=== PATIENT | female | born 1990 | race Caucasian/White ===

== ENCOUNTER 2023-06-24 19:28 | Outpatient (REF) | payer MEDICAID, SELFPAY ==
[2023-06-29 11:09] LABS: Age Gdln ACOG Testing Note (.); HPV Aptima Negative (Negative); IGP, Aptima HPV, rfx 16/18,45 Note (.)
== END 2023-06-24 19:29 | disposition home or self-care (01) ==
LOC: LAB 19:28
PROVIDERS: Visit Provider Obstetrics & Gynecology
DX: Z01.419 Encounter for gynecological examination (general) (routine) without abnormal findings (principal)
CPT/HCPCS: 87624; G0145

== ENCOUNTER 2023-06-25 13:18 | Emergency (ER) | payer MEDICAID, SELFPAY ==
[2023-06-25 13:22] VITALS: BP 128/87; PULSE 100; RESP 16; O2SAT 99; BMI 27.5
[2023-06-25 13:37] VITALS: TEMP 36.9
[2023-06-25 14:04] LABS: Bilirubin Urine NEGATIVE (NEGATIVE); Blood Urine NEGATIVE (NEGATIVE); Clarity Urine CLEAR (CLEAR); Color Urine LT. YELLOW (YELLOW); Glucose Urine UA NEGATIVE (NEGATIVE); Ketones Urine NEGATIVE (NEGATIVE); Leukocyte Esterase Urine NEGATIVE (NEGATIVE); Nitrite Urine NEGATIVE (NEGATIVE); Protein Urine NEGATIVE (NEG/TRACE); Specific Gravity Urine <=1.005 (1.005-1.025); Urobilinogen Urine 0.2 EU/dL (0.2-1.0); pH Urine 6.5 (5.0-9.0)
[2023-06-25 14:07] LABS: Urine Microscopic Indicated NO
[2023-06-25 14:22] LABS: HCG Qualitative Urine* NEGATIVE (NEGATIVE)
[2023-06-25] MEDS: PHENAZOPYRIDINE 100 MG TABLET PO (14:23)
--- NOTE | 2023-06-25 14:36 | ED.GENADUL1 ---
HPI - General Adult General Chief complaint: Abdominal Pain Stated complaint: RIGHT SIDED KIDNEY PAIN Time Seen by Provider: 06/25/23 13:25 Source: patient Mode of arrival: walk-in History of Present Illness HPI narrative: 32 year old female presents for right back pain. pt denies injury to back Patient recently completed Macrobid for a UTI. She states she continues to have symptoms of urinary frequency. pt denies fever, nausea, vomiting, or history of kidney stones. pt looks well. no flank pain on examination. Related Data Home Medications Medication Instructions Recorded Confirmed fluconazole 150 mg tablet 150 mg PO DAILY 06/25/23 06/25/23 methocarbamol 500 mg tablet 500 mg PO TID PRN muscle spasm 06/25/23 06/25/23 metronidazole 500 mg tablet 500 mg PO BID 06/25/23 06/25/23 phenazopyridine 200 mg tablet 200 mg PO TID 06/25/23 06/25/23 (Pyridium) Previous Rx's Medication Instructions Recorded ibuprofen 800 mg tablet 800 mg PO Q8H PRN pain #14 tabs 06/25/23 Allergies Allergy/AdvReac Type Severity Reaction Status Date / Time amoxicillin Allergy Severe Verified 06/25/23 13:29 azithromycin [From Zithromax] Allergy Severe Verified 06/25/23 13:29 cefaclor Allergy Severe Verified 06/25/23 13:29 clarithromycin [From Biaxin] Allergy Severe Verified 06/25/23 13:29 doxycycline Allergy Severe Verified 06/25/23 13:29 Sulfa (Sulfonamide Allergy Severe Verified 06/25/23 13:29 Antibiotics) sulfamethoxazole Allergy Severe Verified 06/25/23 13:29 [From Bactrim] trimethoprim [From Bactrim] Allergy Severe Verified 06/25/23 13:29 Review of Systems ROS Narrative All Systems are negative except as noted/marked.All systems reviewed and otherwise negative [facility] Medical History (Updated 06/25/23 @ 14:34 by Loraine Payne) Henoch-Schonlein purpura ?D69.0 - Allergic purpura (ICD-10) Exam Narrative Exam Narrative: Nurses note and vital signs reviewed and patient is not hypoxic. General: The patient appears well and in no apparent distress. Patient is resting comfortably on cart. Skin: Warm, dry, no pallor noted. There is no rash noted. Head: Normocephalic, atraumatic Eye: Normal conjunctiva, no drainage, EOMI. PERRL Ears, Nose, Mouth, and Throat: oral mucosa is moist. Nares patent. Mouth without vesicles. Ear canals patent. Tm's without Erythema Back: non-tender, no CVA tenderness bilaterally to percussion. GI: Normal bowel sounds, no tenderness to palpation, no masses appreciated. No rebound, guarding, or rigidity noted. Musculoskeletal: The patient has no evidence of calf tenderness, no pitting edema, symmetrical pulses noted bilaterally Neurological: A&O x4, normal speech Psychiatric: Cooperative Constitutional Vital Signs, click to edit/add: Last Vital Signs Temp 98.5 F 06/25/23 13:37 Pulse 100 H 06/25/23 13:22 Resp 16 06/25/23 13:22 BP 128/87 06/25/23 13:22 Pulse Ox 99 06/25/23 13:22 O2 Del Method Room Air 06/25/23 13:22 Course Vital Signs Vital signs: Vital Signs Pulse Rate 100 H 06/25/23 13:22 Respiratory Rate 16 06/25/23 13:22 Blood Pressure 128/87 06/25/23 13:22 Pulse Oximetry 99 06/25/23 13:22 Oxygen Delivery Method Room Air 06/25/23 13:22 Temperature 98.5 F 06/25/23 13:37 Pulse Rate 100 H 06/25/23 13:22 Respiratory Rate 16 06/25/23 13:22 Blood Pressure 128/87 06/25/23 13:22 Pulse Oximetry 99 06/25/23 13:22 Oxygen Delivery Method Room Air 06/25/23 13:22 Medical Decision Making [facility] Narrative Medical decision making narrative: Patient presented with chief complaint of urinary frequency and back pain. She is concerned of a worsening urinary tract infection despite taking Macrobid. Urinalysis obtained today and negative. No blood in her urine. She had no flank pain on examination. I do not believe her pain is due to nephrolithiasis. Patient did state she had increased urinary frequency medicated here with pyridium. She did request a prescription for Pyridium for home. Patient will follow-up with her primary care physician she will be treated for a back pain. Discharged home with Motrin and Robaxin. She verbalized understanding agrees with plan of care. Discharged home with education on back pain. Differential Diagnosis Differential Diagnosis: Back pain, UTI, kidney stone, Medical Records Medical records reviewed: Yes I reviewed the patient's medical records Lab Data Lab results reviewed: Yes I reviewed the patient's lab results Labs: Lab Results 06/25/23 06/25/23 Range/Units 13:32 14:00 Urine Color Lt. yellow (YELLOW) Urine Clarity Clear (CLEAR) Urine pH 6.5 (5.0-9.0) Ur Specific [place] <=1.005 A (1.005-1.025) Urine Protein Negative (NEG/TRACE) mg/dL Urine Glucose (UA) Negative (NEGATIVE) mg/dL Urine Ketones Negative (NEGATIVE) mg/dL Urine Occult Blood Negative (NEGATIVE) Urine Nitrite Negative (NEGATIVE) Urine Bilirubin Negative (NEGATIVE) Urine Urobilinogen 0.2 (0.2-1.0) EU/dL Ur Leukocyte Esterase Negative (NEGATIVE) Urine HCG, Qual Negative (NEGATIVE) Discharge Plan Discharge Chief Complaint: Abdominal Pain Clinical Impression: Back pain Patient Disposition: Home, Self-Care Time of Disposition Decision: 14:30 Condition: Good Mode of Transportation: Private Vehicle Prescriptions / Home Meds: New ibuprofen 800 mg tablet 800 mg PO Q8H PRN (Reason: pain) Qty: 14 0RF No Action fluconazole 150 mg tablet 150 mg PO DAILY Patient Comments: 3 days metronidazole 500 mg tablet 500 mg PO BID phenazopyridine [Pyridium] 200 mg tablet 200 mg PO TID methocarbamol 500 mg tablet 500 mg PO TID PRN (Reason: muscle spasm) Instructions: Back Pain (ED) Stand Alone Forms: Portal Instructions Referrals: Physician,Non-Staff, MD [Primary Care Provider] - 1 week Discharge Date/Time: 06/25/23 14:46
== END 2023-06-25 14:46 | disposition home or self-care (01) ==
PROVIDERS: Physician Assistant; Emergency Provider Emergency Medicine
DX: M54.9 Dorsalgia, unspecified (principal); Z87.440 Personal history of urinary (tract) infections; Z79.899 Other long term (current) drug therapy
CPT/HCPCS: 36415; 81003; 84703; 99283

== ENCOUNTER 2023-12-06 00:30 | Emergency (ER) | payer MEDICAID, SELFPAY ==
[2023-12-06 01:22] VITALS: BP 107/74; PULSE 103; TEMP 36.9; O2SAT 99; BMI 26.7
--- NOTE | 2023-12-06 01:46 | ED.GENADUL1 ---
HPI HPI - General Adult General Chief complaint: Urogenital-Female Stated complaint: uti headache Time Seen by Provider: 12/06/23 01:40 Source: patient Mode of arrival: walk-in Limitations: no limitations History of Present Illness HPI narrative: patient is poor historian. presents complaining of mouth pain and headache. Believes the mouth pain is causing the headache .Also complains of abdominal pain and believes she may have UTI. Then adds her back hurts also and she feels weak. no fever Related Data Home Medications ?Medication ?Instructions ?Recorded ?Confirmed fluconazole 150 mg tablet 150 mg PO DAILY 06/25/23 06/25/23 methocarbamol 500 mg tablet 500 mg PO TID PRN muscle spasm 06/25/23 06/25/23 metronidazole 500 mg tablet 500 mg PO BID 06/25/23 06/25/23 phenazopyridine 200 mg tablet 200 mg PO TID 06/25/23 06/25/23 (Pyridium) Previous Rx's ?Medication ?Instructions ?Recorded ibuprofen 800 mg tablet 800 mg PO Q8H PRN pain #14 tabs 06/25/23 Allergies Allergy/AdvReac Type Severity Reaction Status Date / Time amoxicillin Allergy Severe Verified 06/25/23 13:29 azithromycin [From Zithromax] Allergy Severe Verified 06/25/23 13:29 cefaclor Allergy Severe Verified 06/25/23 13:29 clarithromycin [From Biaxin] Allergy Severe Verified 06/25/23 13:29 doxycycline Allergy Severe Verified 06/25/23 13:29 Sulfa (Sulfonamide Allergy Severe Verified 06/25/23 13:29 Antibiotics) sulfamethoxazole Allergy Severe Verified 06/25/23 13:29 [From Bactrim] trimethoprim [From Bactrim] Allergy Severe Verified 06/25/23 13:29 Opioid HPI Opioid Management Most Recent Opioid Data: No Data to Display Review of Systems ROS Status of ROS 10 or more systems reviewed and unremarkable except as noted in history and below [facility] Medical History (Updated 12/06/23 @ 19:34 by [place] MD) Henoch-Schonlein purpura ?D69.0 - Allergic purpura (ICD-10) Exam Constitutional Vital Signs, click to edit/add: Last Vital Signs Temp 98.5 F 12/06/23 01:22 Pulse 103 H 05/13/24 01:22 Resp 20 12/06/23 01:22 BP 107/74 12/06/23 01:22 Pulse Ox 99 12/06/23 01:22 O2 Del Method Room Air 12/06/23 01:22 Common normals: average body habitus, oriented x3, healthy appearing, alert and well nourished [facility] Common normals: normocephalic and head/scalp atraumatic Other: resolving cold sores on her lips Eye Common normals: EOMs intact bilaterally and conjunctivae normal Respiratory Common normals: normal respiratory effort, no retractions and no use of accessory muscles Cardio Common normals: regular rate, regular rhythm, S1 normal heart sound and S2 normal heart sound GI Other: mild suprapubic tenderness. Left CVA tenderness Extremity Common normals: normal to inspection and full ROM Neuro Common normals: oriented x3, CN's II-XII intact bilaterally, moves all extremities and no focal motor deficits Psych Appearance: grossly normal Course Vital Signs Vital signs: Vital Signs Temperature 98.5 F 12/06/23 01:22 Pulse Rate 103 H 12/06/23 01:22 Respiratory Rate 20 12/06/23 01:22 Blood Pressure 107/74 12/06/23 01:22 Pulse Oximetry 99 12/06/23 01:22 Oxygen Delivery Method Room Air 12/06/23 01:22 Temperature 98.5 F 12/06/23 01:22 Pulse Rate 103 H 12/06/23 01:22 Respiratory Rate 20 12/06/23 01:22 Blood Pressure 107/74 12/06/23 01:22 Pulse Oximetry 99 12/06/23 01:22 Oxygen Delivery Method Room Air 12/06/23 01:22 Medical Decision Making [facility] Narrative Medical decision making narrative: patient is poor historian. presents complaining of mouth pain and abdominal pain. Exam unremarkable except for resolving cold sores on her lips. She also complained of headache. diagnostic studies and labs all unremarkable. [place] better after treatment of her headache. Discharged home in improved condition. No clear explanation of her symptoms. Diagnosed as possible viral syn. Lab Data Labs: Lab Results 12/06/23 12/06/23 Range/Units 02:09 02:56 WBC 16.3 H (4.0-11.0) 10^3/uL RBC 4.22 (4.20-5.40) 10^6/uL Hgb 13.0 (12.0-16.0) g/dL Hct 38.3 (36.0-48.0) % MCV 90.8 (81.0-99.0) fL MCH 30.8 (26.7-34.0) pg MCHC 33.9 (29.9-35.2) g/dL RDW 12.9 (11.0-15.0) % Plt Count 265 (150-450) 10^3/uL MPV 10.2 (9.5-13.5) fL Neut % (Auto) 83.3 H (43.0-75.0) % Lymph % (Auto) 6.4 L (20.5-60.0) % [place] % (Auto) 5.9 (1.7-12.0) % Eos % (Auto) 3.6 (0.9-7.0) % Baso % (Auto) 0.4 (0.2-2.0) % Neut # (Auto) 13.6 H (1.4-6.5) 10^3/uL Lymph # (Auto) 1.0 L (1.2-3.8) 10^3/uL [place] # (Auto) 1.0 H (0.3-0.8) 10^3/uL Eos # (Auto) 0.6 (0.0-0.7) 10^3/uL Baso # (Auto) 0.1 (0.0-0.1) 10^3/uL Abs Immat Gran (auto) 0.06 H (0.00-0.03) 10^3/uL Imm/Tot Granulo (auto) 0.4 (0.0-0.5) % Sodium 137 (136-145) mmol/L Potassium 3.6 (3.5-5.1) mmol/L Chloride 102 (98-107) mmol/L Carbon Dioxide 26.1 (21.0-32.0) mmol/L Anion Gap 12.5 BUN 18.0 (7.0-18.0) mg/dL Creatinine 1.17 H (0.55-1.02) mg/dL Est GFR ( Amer) >60 (>=60) Est GFR (Non-Af Amer) 54 L (>=60) BUN/Creatinine Ratio 15.4 Glucose 116 H (74-106) mg/dL Lactate 1.5 (0.4-2.0) mmol/L Calcium 9.1 (8.5-10.1) mg/dL Total Bilirubin 0.4 (0.2-1.0) mg/dL AST 16 (15-37) U/L ALT 30 (14-59) U/L Alkaline Phosphatase 60 (46-116) U/L Total Protein 6.9 (6.4-8.2) g/dL Albumin 3.3 L (3.4-5.0) g/dL Globulin 3.6 g/dL Albumin/Globulin Ratio 0.9 Urine Color Lt. yellow (YELLOW) Urine Clarity Clear (CLEAR) Urine pH 7.5 (5.0-9.0) Ur Specific [place] 1.010 (1.005-1.025) Urine Protein Negative (NEG/TRACE) mg/dL Urine Glucose (UA) Negative (NEGATIVE) mg/dL Urine Ketones Negative (NEGATIVE) mg/dL Urine Occult Blood Negative (NEGATIVE) Urine Nitrite Negative (NEGATIVE) Urine Bilirubin Negative (NEGATIVE) Urine Urobilinogen 1.0 (0.2-1.0) EU/dL Ur Leukocyte Esterase Negative (NEGATIVE) Urine HCG, Qual Negative (NEGATIVE) Discharge Plan Discharge Stand Alone Forms: Portal Instructions Chief Complaint: Urogenital-Female Clinical Impression: Viral syndrome, Headache Patient Disposition: Home, Self-Care Prescriptions / Home Meds: No Action fluconazole 150 mg tablet 150 mg PO DAILY Patient Comments: 3 days metronidazole 500 mg tablet 500 mg PO BID ibuprofen 800 mg tablet 800 mg PO Q8H PRN (Reason: pain) Qty: 14 0RF phenazopyridine [Pyridium] 200 mg tablet 200 mg PO TID methocarbamol 500 mg tablet 500 mg PO TID PRN (Reason: muscle spasm) Print Language: British Instructions: Viral Syndrome (ED) Referrals: Physician,Non-Staff, MD [Primary Care Provider] - 1 week Discharge Date/Time: 12/06/23 04:04
--- NOTE | 2023-12-06 01:54 | CT_ITS ---
The [address] [address] Patient Name: ABRAM NELSON MRN: [id number] date: 1990 Sex: F Assigned Patient Location: ER Current Patient Location: Accession/Order Number: [id number] Exam Date: 12/06/2023 02:19 Report Date: 12/06/2023 02:43 At the request of: TRACEY COLE Procedure: CT facial bones wo con EXAM: CT facial bones wo con HISTORY: facial pain and headache COMPARISON: CT head examination of the same date. TECHNIQUE: Noncontrast axial CT images through the facial bones were obtained with coronal and sagittal reformats. Dose reduction techniques were achieved by using automated exposure control and/or adjustment of mA and/or kV according to patient size and/or use of iterative reconstruction technique. FINDINGS: No acute fracture or dislocation of the facial bones is seen. The visualized paranasal sinuses and mastoid air cells are clear. The orbits and globes are unremarkable. No acute intracranial abnormality is seen in the imaged portions of the brain. CT/CT facial bones wo con IMPRESSION: 1. No acute or significant abnormality of the facial bones is seen. Electronically authenticated by: Loida JAMES Date: 12/06/2023 02:43
--- NOTE | 2023-12-06 01:54 | CT_ITS ---
The [address] [address] Patient Name: ABRAM NELSNO MRN: [id number] date: 1990 Sex: F Assigned Patient Location: ER Current Patient Location: Accession/Order Number: [id number] Exam Date: 12/06/2023 02:12 Report Date: 12/06/2023 02:32 At the request of: TRACEY COLE Procedure: CT head/brain wo con INDICATION: 32 years old; Female. Headache. TECHNIQUE: CT Head (ax/cor/sag reformats). Ionizing radiation dose reduced via iterative reconstruction/FBP blend and body size kV/mA adjustment. Comparison: None FINDINGS: POSTOPERATIVE CHANGES: None. BRAIN PARENCHYMA: No intraparenchymal or extra-axial hemorrhage. No mass effect. No midline shift or herniation. Normal mccain/white differentiation. VENTRICLES/EXTRA-AXIAL SPACES: Normal for patient's age. SINUSES/MASTOIDS: Sinuses are clear. Maxillary sinuses are not completely included. Reta bullosa on the left. Nasal septal deviation to the right. Mastoids and middle ears are clear. There is a degree of mastoid sclerosis on the right. MSK: No displaced or depressed calvarial fracture. OTHER: No hyperdense intraluminal thrombus. CT/CT head/brain wo con IMPRESSION: 1. No acute intracranial abnormality. No hemorrhage or mass effect. Electronically authenticated by: SHARI PATEL Date: 12/06/2023 02:32
--- NOTE | 2023-12-06 01:55 | CT_ITS ---
The [address] [address] Patient Name: ABRAM NELSON MRN: [id number] date: 1990 Sex: F Assigned Patient Location: ER Current Patient Location: Accession/Order Number: [id number] Exam Date: 12/06/2023 02:19 Report Date: 12/06/2023 02:43 At the request of: TRACEY COLE Procedure: CT abdomen pelvis wo con CT ABDOMEN PELVIS WITHOUT CONTRAST HISTORY: Pain with burning with urination. COMPARISON: None. TECHNIQUE: Thin section axial CT images were obtained from the lung bases to the pubis symphysis. This CT exam was performed using one or more of the following dose reduction techniques: Automated exposure control, adjustment of the mA and/or kV according to patient size, or use of iterative reconstruction technique. Thin section coronal and sagittal images were reconstructed from the axial data set. All images were reviewed and interpreted. CONTRAST: None. FINDINGS: Assessment of solid organs is limited without the benefit of IV contrast. LUNG BASES: The lung bases are clear. GE JUNCTION AND STOMACH: Negative. No hiatal hernia. LIVER: Negative. GALLBLADDER AND BILIARY TREE: Normal gallbladder. SPLEEN: Negative. PANCREAS: Negative. ADRENALS: Negative. KIDNEYS AND URETERS: Negative. No urinary tract calculi or hydronephrosis. No renal masses or cysts are evident. SMALL BOWEL: Negative. LARGE BOWEL: Negative. APPENDIX: Negative. PELVIC STRUCTURES: Reproductive organs are normal for age. No pelvic mass or fluid collection. AORTA: The abdominal aorta is normal size. IVC: Negative. LYMPH NODES: There is no lymphadenopathy. BLADDER: Normal bladder. BONES: Unremarkable. COMMENTS: No ascites or free air. CT/CT abdomen pelvis wo con IMPRESSION: No acute or concerning abnormality identified. Negative CT of the abdomen and pelvis without contrast. These imaging findings do not exclude additional clinically significant abnormalities. This report should be interpreted in the context of clinical information including patient symptoms and available laboratory findings. Follow-up imaging or other interventions may be appropriate, if indicated by your clinical impression. Electronically authenticated by: CRISTINA OHARA Date: 12/06/2023 02:43
[2023-12-06 02:16] LABS: Basophils Absolute Auto 0.1 10^3/uL (0.0-0.1); Basophils Percent Auto 0.4 % (0.2-2.0); Eosinophils Absolute Auto 0.6 10^3/uL (0.0-0.7); Eosinophils Percent Auto 3.6 % (0.9-7.0); Hematocrit 38.3 % (36.0-48.0); Immature Granulocytes Abs Auto 0.06 10^3/uL (0.00-0.03); Immature Granulocytes Pct Auto 0.4 % (0.0-0.5); Lymphocytes Percent Auto 6.4 % (20.5-60.0); Mean Corpuscular HGB Conc 33.9 g/dL (29.9-35.2); Mean Corpuscular Hemoglobin 30.8 pg (26.7-34.0); Mean Corpuscular Volume 90.8 fL (81.0-99.0); Mean Platelet Volume 10.2 fL (9.5-13.5); Monocytes Percent Auto 5.9 % (1.7-12.0); Neutrophils Absolute Auto 13.6 10^3/uL (1.4-6.5); Neutrophils Percent Auto 83.3 % (43.0-75.0); Platelet Count 265 10^3/uL (150-450); Red Blood Count 4.22 10^6/uL (4.20-5.40); Red Cell Distribution Width 12.9 % (11.0-15.0); White Blood Count 16.3 10^3/uL (4.0-11.0)
[2023-12-06 02:30] LABS: Alanine Aminotransferase 30 U/L (14-59); Albumin Globulin Ratio 0.9; Albumin Level 3.3 g/dL (3.4-5.0); Alkaline Phosphatase 60 U/L (46-116); Anion Gap 12.5; Aspartate Amino Transferase 16 U/L (15-37); BUN Creatinine Ratio 15.4; Bilirubin Total 0.4 mg/dL (0.2-1.0); Calcium 9.1 mg/dL (8.5-10.1); Carbon Dioxide 26.1 mmol/L (21.0-32.0); Chloride 102 mmol/L (98-107); Estimated GFR (African America >60 (>=60); Estimated GFR (Non-African Ame 54 (>=60); Globulin 3.6 g/dL; Glucose 116 mg/dL (74-106); Potassium 3.6 mmol/L (3.5-5.1); Sodium 137 mmol/L (136-145); Total Protein 6.9 g/dL (6.4-8.2)
[2023-12-06 02:33] LABS: Lactate/Lactic Acid 1.5 mmol/L (0.4-2.0)
[2023-12-06] MEDS: 0.9 % SODIUM CHLORIDE 1,000 ML 999 ML IV (02:43)
[2023-12-06] MEDS: DIPHENHYDRAMINE HCL 50 MG/ML (1ML) VIAL IV (02:44)
[2023-12-06] MEDS: METOCLOPRAMIDE HCL 10 MG/2 ML VIAL IVP (02:44)
[2023-12-06] MEDS: METHYLPREDNISOLONE SOD SUCC PF 125 MG/2 ML VIAL IVP (02:44)
[2023-12-06 03:33] LABS: Bilirubin Urine NEGATIVE (NEGATIVE); Blood Urine NEGATIVE (NEGATIVE); Clarity Urine CLEAR (CLEAR); Color Urine LT. YELLOW (YELLOW); Glucose Urine UA NEGATIVE (NEGATIVE); Ketones Urine NEGATIVE (NEGATIVE); Leukocyte Esterase Urine NEGATIVE (NEGATIVE); Nitrite Urine NEGATIVE (NEGATIVE); Protein Urine NEGATIVE (NEG/TRACE); Urine Microscopic Indicated NO; pH Urine 7.5 (5.0-9.0)
[2023-12-06 03:35] LABS: HCG Qualitative Urine* NEGATIVE (NEGATIVE)
--- OUTSIDE RECORDS SUMMARY | 2023-12-06 03:55 | XMS_ITS | CCD ---
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 DATE CREATED AUTHOR 01/19/2018 [facility] DATE CREATED AUTHOR AUTHOR'S ORGANIZ ATION 01/19/2018 [facility] DATE CREATED AUTHOR AUTHOR'S ORGANIZ ATION 08/26/2022 [facility] DATE CREATED AUTHOR AUTHOR'S ORGANIZ ATION 12/02/2022 [facility] DATE CREATED AUTHOR AUTHOR'S ORGANIZ ATION 06/26/2023 [facility] FOR RECORDS PERTAINING TO PATIENTS WHO ARE OR HAVE BEEN ENROLLED IN A CHEMICAL DEPENDENCY/SUBSTANCEABUSE PROGRAM, SOME INFORMATION MAY BE OMITTED. This clinical summary was aggregated from multiple sources. Caution should be exercised in using it in the provision of clinical care. This summary normalizes information from multiple sources, and as a consequence, information in this document may materially change the coding, format and clinical context of patient data. In addition, data may be omitted in some cases. CLINICAL DECISIONS SHOULD BE BASED ON THE PRIMARY CLINICAL RECORDS. [employer] provides no warranty or guarantee of the accuracy or completeness of information in this document.
== END 2023-12-06 04:04 | disposition home or self-care (01) ==
PROVIDERS: Emergency Provider Internal Medicine
DX: R51.9 Headache, unspecified (principal); B34.9 Viral infection, unspecified; R10.9 Unspecified abdominal pain
CPT/HCPCS: 36415; 70450; 70486; 74176; 80053; 81003; 83605; 84703; 85025; 96374; 96375; 99285; J2919

== ENCOUNTER 2024-07-21 10:12 | Outpatient (OUT) | payer MEDICAID, SELFPAY ==
--- NOTE | 2024-07-21 10:14 | US_ITS ---
[address] [address] Patient Name: ABRAM NELSON MRN: [id number] date: 1990 Sex: F Assigned Patient Location: [facility] Current Patient Location: [facility] Accession/Order Number: [id number] Exam Date: 07/21/2024 10:15 Report Date: 07/21/2024 16:17 At the request of: KERMIT MG Procedure: US OB transvaginal EXAMINATION: US OB transvaginal HISTORY: MISSED MENSES COMPARISON: No relevant comparison available. FINDINGS: GESTATIONAL SAC: Present and normal appearing. YOLK SAC: Present and normal appearing. POLE: Present and normal appearing. CARDIAC: Present. UTERUS: Normal size and appearance. OVARIES: Right: Normal. Left: Normal. CERVIX: 4.2 cm in length and closed. CUL-DE-SAC: Normal. OTHER: None. AGE BY LMP: 9 weeks 5 days INGRIS BY LMP: 02/18/2025 AGE BY US CRL: 10 weeks 0 days INGRIS BY US CRL: 02/16/2025 US/US OB transvaginal IMPRESSION: 1. Single live intrauterine . Electronically authenticated by: REMA OLIVAS Date: 07/21/2024 16:17
--- OUTSIDE RECORDS SUMMARY | 2024-07-21 10:24 | XMS_ITS | CCD ---
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 ####[address] [place] [address] Urine, bacteria in sediment Negative Normal [facility] Comment on above: Performed By: #### P T/INR, PTT ####[address] [place] [address] Urine, mucus presence in sediment Negative Normal NEGATIVE [facility] Comment on above: Performed By: #### P T/INR, PTT ####[address] [place] [address] Urine, casts in sediment NONE SEEN Normal NONE SEEN [facility] Comment on above: Performed By: #### P T/INR, PTT ####[address] [place] [address] Urine, epithelial cells in sediment Negative Normal NEGATIVE [facility] Comment on above: Performed By: #### P T/INR, PTT ####[address] [place] [address] Erythrocytes (RBC) 0-4/HPF Normal NONE SEEN [facility] Comment on above: Performed By: #### P T/INR, PTT ####[address] [place] [address] WBC (Leukocytes) NONE SEEN Normal NONE SEEN [facility] Comment on above: Performed By: #### P T/INR, PTT ####[address] [place] [address] Urine, leukocyte esterase presence Negative Normal NEGATIVE [facility] Comment on above: Performed By: #### P T/INR, PTT ####[address] [place] [address] Urine, nitrite presence Negative Normal NEGATIVE [facility] Comment on above: Performed By: #### P T/INR, PTT ####[address] [place] [address] Urobilinogen, Dipstick 0.2 Normal 0.2 - 1.0 [facility] Comment on above: Performed By: #### P T/INR, PTT ####[address] [place] [address] Protein, Qual Negative Normal NEGATIVE [facility] Comment on above: Performed By: #### P T/INR, PTT ####[address] [place] [address] Urine, pH 7.0 [pH] Normal 5.0 - 9.0 [facility] Comment on above: Performed By: #### P T/INR, PTT ####[address] [place] [address] Blood, Dipstick TRACE Abnormal NEGATIVE [facility] Comment on above: Performed By: #### P T/INR, PTT ####[address] [place] [address] Urine, specific gravity 1.015 Normal 1.005 - 1.030 [facility] Comment on above: Performed By: #### P T/INR, PTT ####[address] [place] [address] Ketone, Dipstick Negative Normal NEGATIVE [facility] Comment on above: Performed By: #### P T/INR, PTT ####[address] [place] [address] Bilirubin (direct) Negative Normal NEGATIVE [facility] Comment on above: Performed By: #### P T/INR, PTT ####[address] [place] [address] Glucose mass conc Negative Normal NEGATIVE [facility] Comment on above: Performed By: #### P T/INR, PTT ####[address] [place] [address] Urine, character CLEAR Normal CLEAR [facility] Comment on above: Performed By: #### P T/INR, PTT ####[facility] [place] [address] Urine, color YELLOW Normal [facility] Comment on above: Performed By: #### P T/INR, PTT ####[address] [place] [address] Urinalysis w/ Microon 2016 ----- Normal [facility] Comment on above: Performed By: #### U AMIC, MARLEEN ####[address] [address] Acetaminophen mass conc Negative Normal NEG [facility] Comment on above: Performed By: #### U AMIC, MARLEEN ####[address] [address] Bilirubin (direct) Negative Normal NEG [facility] Comment on above: Performed By: #### U AMIC, MARLEEN ####[address] [address] Hemoglobin mass conc (Bld) LARGE Abnormal NEG [facility] Comment on above: Performed By: #### U AMIC, MARLEEN ####[address] [address] Nitrite,Ur Negative Normal NEG [facility] Comment on above: Performed By: #### U AMIC, MARLEEN ####[address] [address] Turbidity CLEAR Normal CLEAR [facility] Comment on above: Performed By: #### U AMIC, MARLEEN ####[address] [address] Urine WBC's 0 TO 2 Normal 0-5 [facility] Comment on above: Performed By: #### U AMIC, MARLEEN ####[facility] [address] [place] [address] Urine, casts in sediment 0 TO 2 HYALINE Normal 0-8 [facility] Comment on above: Result Comment: Refe rence range defined for non-centrifuged specimen. Performed By: #### U AMIC, MARLEEN ####[address] [address] Urine, color YELLOW Normal YEL [facility] Comment on above: Performed By: #### U AMIC, MARLEEN ####[address] [address] Urine, epithelial cells in sediment 0 TO 2 Normal 0-5 [facility] Comment on above: Result Comment: [address] [address] Performed By: #### U AMIC, MARLEEN ####[address] [address] Urine, erythrocytes 2 TO 5 Normal 0-4 [facility] Comment on above: Result Comment: Refe rence range defined for non-centrifuged specimen. Performed By: #### U AMIC, MARLEEN ####[address] [address] Urine, glucose presence Negative Normal NEG [facility] Comment on above: Performed By: #### U AMIC, MARLEEN ####[facility] [id number] [place] [address] Urine, leukocyte esterase presence Negative Normal NEG [facility] Comment on above: Performed By: #### U AMIC, MARLEEN ####[facility] [id number] [place] [address] Urine, pH 6.0 [pH] Normal 5.0-8.0 [facility] Comment on above: Performed By: #### U AMIC, MARLEEN ####[address] [address] Urine, protein presence Negative Normal NEG [facility] Comment on above: Performed By: #### U AMIC, MARLEEN ####[address] [place] [address] Urine, specific gravity 1.013 Normal 1.005-1.030 [facility] Comment on above: Performed By: #### U AMIC, MARLEEN ####[address] [address] Urobilinogen,Ur Normal Normal NORM [facility] Comment on above: Performed By: #### U AMIC, MARLEEN ####[address] [address] Epithelial, Renal NOT REPORTED Normal 0 [facility] Comment on above: Performed By: #### U AMIC, MARLEEN ####[address] [address] Mucus Strands NOT REPORTED Normal NONE [facility] Comment on above: Performed By: #### U AMIC, MARLEEN ####[address] [address] Other Observations NOT REPORTED Normal NREQ [facility] Comment on above: Performed By: #### U AMIC, MARLEEN ####[address] [place] [address] Trichomonas NOT REPORTED Normal NONE [facility] Comment on above: Performed By: #### U AMIC, MARLEEN ####[facility] [address] [place] [address] Urine, amorphous sediment presence in sediment NOT REPORTED Normal NONE [facility] Comment on above: Performed By: #### U AMIC, MARLEEN ####[facility] [address] [place] [address] Urine, bacteria in sediment NOT REPORTED Normal NONE [facility] Comment on above: Performed By: #### U AMIC, MARLEEN ####[facility] [address] [place] [address] Urine, crystals in sediment NOT REPORTED Normal NONE [facility] Comment on above: Performed By: #### U AMIC, MARLEEN ####[facility] [address] [place] [address] Urine, yeast presence in sediment NOT REPORTED Normal NONE [facility] Comment on above: Performed By: #### U AMIC, MARLEEN ####[address] [place] [address] XR CHEST PA OR AP (1 VIEW)on [...] injury.Report electronically signed by: Dr. Chilo Fernandez [facility] XR SHOULDER RTon 02-07-2017 XR SHOULDER [...] injury.Report electronically signed by: Dr. Chilo Fernandez [facility] APTTon 02-06-2017 aPTT 29.1 s Normal 23.0 - 37.0 [facility] Comment on above: Performed By: #### P T/INR, PTT ####[address] [place], [place] [address] Basic Metabolic Panelon 01-23 eGFR (non-black) 108.65 Normal [facility] Comment on above: Result Comment: eGFR Interpretation:Normal: Equal to or greater than 60 mL/min/1.73 meters squaredChronic Kidney Disease: Less than 60 mL/min/1.73 meters squaredKidney Failure: Less than 15 mL/min/1.73 meters squared Performed By: #### B MP, LIVER PROFILE ####[address] [place] [address] eGFR (non-black) 114.39 Normal [facility] Comment on above: Result Comment: eGFR Interpretation:Normal: Equal to or greater than 60 mL/min/1.73 meters squaredChronic Kidney Disease: Less than 60 mL/min/1.73 meters squaredKidney Failure: Less than 15 mL/min/1.73 meters squared Performed By: #### B MP, LIVER PROFILE ####[address] [place] [address] eGFR (non-black) 108.1 Normal [facility] Comment on above: Result Comment: eGFR Interpretation:Normal: Equal to or greater than 60 mL/min/1.73 meters squaredChronic Kidney Disease: Less than 60 mL/min/1.73 meters squaredKidney Failure: Less than 15 mL/min/1.73 meters squared Performed By: #### B MP, LIVER PROFILE ####[address] [place] [address] eGFR (non-black) 81.88 Normal [facility] Comment on above: Result Comment: eGFR Interpretation:Normal: Equal to or greater than 60 mL/min/1.73 meters squaredChronic Kidney Disease: Less than 60 mL/min/1.73 meters squaredKidney Failure: Less than 15 mL/min/1.73 meters squared Performed By: #### B MP, LIVER PROFILE ####[address] [place] [address] eGFR (non-black) 125.60 Normal [facility] Comment on above: Performed By: #### B MP, LIVER PROFILE ####[address] [place] [address] eGFR (non-black) 132.24 Normal [facility] Comment on above: Performed By: #### B MP, LIVER PROFILE ####[address] [place] [address] eGFR (non-black) 124.64 Normal [facility] Comment on above: Performed By: #### B MP, LIVER PROFILE ####[address] [place] [address] eGFR (non-black) 94.39 Normal [facility] Comment on above: Performed By: #### B MP, LIVER PROFILE ####[address] [place] [address] Age 26 year(s) Normal [facility] Comment on above: Performed By: #### B MP, LIVER PROFILE ####[address] [place] [address] Calcium 10.1 mg/dL Normal 8.4 - 10.2 [facility] Comment on above: Performed By: #### B MP, LIVER PROFILE ####[address] [place] [address] Chloride 103 mmol/L Normal 98 - 107 [facility] Comment on above: Performed By: #### B MP, LIVER PROFILE ####[address] [place] [address] CO2 25 mmol/L Normal 22 - 32 [facility] Comment on above: Performed By: #### B MP, LIVER PROFILE ####[address] [place] [address] Creatinine 0.96 mg/dL Normal 0.52 - 1.04 [facility] Comment on above: Performed By: #### B MP, LIVER PROFILE ####[address] [place] [address] Glucose mass conc 126 mg/dL High 65 - 100 [facility] Comment on above: Performed By: #### B MP, LIVER PROFILE ####[address] [place] [address] Potassium molar conc 3.9 mmol/L Normal 3.6 - 5.0 [facility] Comment on above: Performed By: #### B MP, LIVER PROFILE ####[address] [place] [address] Sodium 139 mmol/L Normal 135 - 145 [facility] Comment on above: Performed By: #### B MP, LIVER PROFILE ####[address] [place] [address] Urea nitrogen 20 mg/dL High 7 - 17 [facility] Comment on above: Performed By: #### B MP, LIVER PROFILE ####[address] [place] [address] CBC W Auto Differentialon Abs Neut # 9.0 10 X 3/mm High 1.8 - 7.7 [facility] Comment on above: Performed By: #### C BC Auto Diff ####[address] [place] [address] Basophils/100 WBC Auto (Bld) 1 % High 0 - 1 [facility] Comment on above: Performed By: #### C BC Auto Diff ####[address] [place] [address] Eosinophils 0.1 10 X 3/mm Normal 0.0 - 0.5 [facility] Comment on above: Performed By: #### C BC Auto Diff ####[address] [place] [address] Eosinophils/100 leukocytes 1 % Normal 0 - 5 [facility] Comment on above: Performed By: #### C BC Auto Diff ####[address] [place] [address] Erythrocyte distribution width Auto Ratio (RBC) 15.1 % High 11.5 - 14.5 [facility] Comment on above: Performed By: #### C BC Auto Diff ####[address] [place] [address] Erythrocytes (RBC) 4.28 10 X 6/mm Normal 4.20 - 5.40 [facility] Comment on above: Performed By: #### C BC Auto Diff ####[address] [place] [address] Hematocrit (HCT) 36.3 % Normal 36.0 - 47.0 [facility] Comment on above: Performed By: #### C BC Auto Diff ####[address] [place] [address] Hemoglobin mass conc (Bld) 12.4 g/dL Normal 12.0 - 16.0 [facility] Comment on above: Performed By: #### C BC Auto Diff ####[address] [place] [address] Lymphocytes 2.3 10 X 3/mm Normal 1.0 - 4.0 [facility] Comment on above: Performed By: #### C BC Auto Diff ####[address] [place] [address] Lymphocytes/100 leukocytes 19 % Low 20 - 40 [facility] Comment on above: Performed By: #### C BC Auto Diff ####[address] [place] [address] MCH 29.0 pg Normal 27.0 - 35.0 [facility] Comment on above: Performed By: #### C BC Auto Diff ####[address] [place] [address] MCHC mass conc (RBC) 34.2 g/dL Normal 32.0 - 36.0 [facility] Comment on above: Performed By: #### C BC Auto Diff ####[address] [place] [address] MCV 84.9 fL Normal 80.0 - 100.0 [facility] Comment on above: Performed By: #### C BC Auto Diff ####[address] [place] [address] Monocytes/100 leukocytes 6 % Normal 1 - 15 [facility] Comment on above: Performed By: #### C BC Auto Diff ####[address] [place] [address] Neutrophils/100 WBC Auto (Bld) 74 % High 50 - 70 [facility] Comment on above: Performed By: #### C BC Auto Diff ####[address] [place] [address] Platelet mean volume (PMV) 8.0 fL Normal 7.5 - 11.5 [facility] Comment on above: Performed By: #### C BC Auto Diff ####[address] [place] [address] Platelets 454 uLx10 High 150 - 450 [facility] Comment on above: Performed By: #### C BC Auto Diff ####[address] [place] [address] WBC (Leukocytes) 12.2 10 X 3/mm High 3.7 - 11.0 [facility] Comment on above: Performed By: #### C BC Auto Diff ####[address] [place] [address] CT BRAIN WOon 02-06-2017 Thyroid stimulating hormone [...] effectReport electronically signed by: Dr. Zaire Babcock [facility] CT CERVICAL SPINE WOon 02-06 CT CERVICAL SPINE WO CT CERVICAL SPINE W ITHOUT CONTRASTCLINICAL HISTORY: TraumaCOMPARISON: No relevant prior study available at time of interpretation..TECHNIQUE : Unenhanced axial CT images of the cervical [...] clinically indicated.Report electronically signed by: Dr. Mahamed King [facility] CT SINUS/FACIAL WOon 017 CT SINUS/FACIAL [...] foreign body.Report electronically signed by: Dr. Hal Ayoub Normal [facility] Hepatic Function Panelon Alanine aminotransferase (ALT) 30 U/L Normal 7 - 52 [facility] Comment on above: Performed By: #### B MP, LIVER PROFILE ####[address] [place] [address] Albumin 3.8 g/dL Normal 3.5 - 5.0 [facility] Comment on above: Performed By: #### B MP, LIVER PROFILE ####[address] [place] [address] Alkaline phosphatase (ALP) 63 U/L Normal 38 - 126 [facility] Comment on above: Performed By: #### B MP, LIVER PROFILE ####[address] [place] [address] Aspartate aminotransferase (AST) 22 U/L Normal 14 - 36 [facility] Comment on above: Performed By: #### B MP, LIVER PROFILE ####[address] [place] [address] Bilirubin (direct) 0.0 mg/dL Normal 0.0 - 0.2 [facility] Comment on above: Performed By: #### B MP, LIVER PROFILE ####[address] [place] [address] Bilirubin (total) 0.8 mg/dL Normal 0.2 - 1.3 [facility] Comment on above: Performed By: #### B MP, LIVER PROFILE ####[address] [place] [address] Protein 6.9 g/dL Normal 6.3 - 8.2 [facility] Comment on above: Performed By: #### B MP, LIVER PROFILE ####[address] [place] [address] PT/INRon 02-06-2017 INR Coag RelTime (Bld) See Comments Normal [facility] Comment on above: Result Comment: [place] mmended [...] 2.5-3.5 Performed By: #### P T/INR, PTT ####[address] [place] [address] INR Coag RelTime (PPP) 0.94 Normal 0.90 - 1.10 [facility] Comment on above: Performed By: #### P T/INR, PTT ####[address] [place] [address] Prothrombin time (PT) Coag time (PPP) 12.6 s Normal [facility] Comment on above: Performed By: #### P T/INR, PTT ####[address] [place] [address] Troponin I, Extra Sensitiveo n 02-06-2017 Troponin I.cardiac mass conc ng/mL Normal 0.000 - 0.034 [facility] Comment on above: Result Comment: Limi t of Detection: <0.012 ng/mLAt Risk of Myocardial Damage: 0.012-0.034 ng/mLProbable Myocardial Damage: >0.034 ng/mL Performed By: #### T ROPONIN I ####[place] [id number] [place], [place] [id number] hCG, Qualitative-Serumon Internal Control ACCEPTABLE Normal [facility] Comment on above: Performed By: #### H CG,QUAL SERUM ####[place] [id number] [place] [address] hCG, Qualitative-Serum Negative Normal NEGATIVE [facility] Comment on above: Performed By: #### H CG,QUAL SERUM ####[place] [id number] [place], [place] [id number] Vital Signs Date Time Vital Sign Value Performing Clinician Faci lity 06-08-2024 10:32-0500 Body height 165.1 cm [facility] 06-08-2024 10:32-0500 Body mass index (BMI) [Ratio] 29.1 kg/m2 [facility] 06-08-2024 10:32-0500 Body temperature 97.5 [degF] [facility] 06-08-2024 10:32-0500 Body weight 79.37 kg [facility] 06-08-2024 10:32-0500 Diastolic blood pressure 89 mm[Hg] [facility] 06-08-2024 10:32-0500 Heart rate 93 /min [facility] 06-08-2024 10:32-0500 Respiratory rate 18 /min [facility] 06-08-2024 10:32-0500 SaO2% (BldA) [Mass fraction] 98 % [facility] 06-08-2024 10:32-0500 Systolic blood pressure 130 mm[Hg] [facility] 04-21-2024 13:40-0400 Body height 165.1 cm [facility] 04-21-2024 13:40-0400 Body mass index (BMI) [Ratio] 28.1 kg/m2 [facility] 04-21-2024 13:40-0400 Body temperature 99.4 [degF] [facility] 04-21-2024 13:40-0400 Body weight 76.82 kg [facility] 04-21-2024 13:40-0400 Diastolic blood pressure 84 mm[Hg] [facility] 04-21-2024 13:40-0400 Heart rate 85 /min [facility] 04-21-2024 13:40-0400 Respiratory rate 18 /min [facility] 04-21-2024 13:40-0400 SaO2% (BldA) [Mass fraction] 99 % [facility] 04-21-2024 13:40-0400 Systolic blood pressure 126 mm[Hg] [facility] 12-22-2023 18:07-0400 Body height 165.1 cm [facility] 12-22-2023 18:07-0400 Body mass index (BMI) [Ratio] 27.8 kg/m2 [facility] 12-22-2023 18:07-0400 Body temperature 98.7 [degF] [facility] 12-22-2023 18:07-0400 Body weight 75.74 kg [facility] 12-22-2023 18:07-0400 Heart rate 84 /min [facility] 12-22-2023 18:07-0400 Respiratory rate 18 /min [facility] 12-22-2023 18:07-0400 SaO2% (BldA) [Mass fraction] 99 % [facility] Encounters Encounter Date Encounter Type Care Provider Facility Start: 06-08-2024 End: 06-08-2024 ambulatory [facility] Work Phone: Start: 06-08-2024 End: 06-08-2024 Patient encounter procedure [facility] Work Phone: Start: 04-21-2024 End: 04-21-2024 ambulatory [facility] Work Phone: Start: 04-21-2024 End: 04-21-2024 Patient encounter procedure [facility] Work Phone: Start: 12-22-2023 End: 12-22-2023 ambulatory [facility] Work Phone: Start: 12-22-2023 End: 12-22-2023 Patient encounter procedure [facility] Work Phone: Start: 06-24-2023 End: 06-24-2023 ambulatory [facility] Not Available Start: 12-01-2022 ambulatory Facility:[facility] Start: 08-24-2022 End: 08-25-[address] MECHE LE Facility:[facility] Start: 08-19-2022 End: 08-19-[address] KERMIT MG Facility:[facility] Start: 07-30-2022 End: 07-30-2022 ambulatory LEANDRO VERDUZCO Facility:[facility] Start: 03-11-2022 End: 03-11-[address] KERMIT MG Facility:[facility] Start: 11-23-2021 End: 11-23-2021 ambulatory LEANDRO VERDUZCO Facility:[facility] Start: 02-07-2017 End: 02-07-2017 Ambulatory ALTA GOODRICH [facility] Start: 02-06-2017 End: 02-07-2017 Emergency department patient visit IBRAHIMA WARE Facility:[facility] Procedures Date Procedure Procedure Detail Performing Clinician Start: 06-08-2024 Quick Strep (POC) Start: 04-21-2024 Quick Strep (POC) Start: 12-22-2023 Quick Strep (POC) Start: 02-07-2017 IP CONSULT TO ORTHOP EDIC SURGERY [facility] Start: 02-07-2017 NURSING COMMUNICATION P AUSrinivasan GOODRICH Start: 02-07-2017 DISCHARGE PATIENT [facility] Start: 02-07-2017 URINALYSIS WITH MICROSCOPIC [facility] Start: 02-07-2017 URINE DRUG SCREEN [facility] Start: 02-07-2017 DIET GENERAL [facility] Start: 02-07-2017 ETHANOL [facility] Start: 02-07-2017 FULL CODE [facility] Start: 02-07-2017 NOTIFY PHYSICIAN (SPECIFY) [facility] Start: 02-07-2017 OT EVAL AND TREAT [facility]TA [facility] Start: 02-07-2017 PT EVAL AND TREAT [facility] Start: 02-07-2017 REASON FOR NO MECHAN ICAL VTE PROPHYLAXIS [facility] Start: 02-07-2017 VITAL SIGNS [facility] Start: 02-07-2017 PATIENT STATUS (FROM ED OR OR/PROCEDURAL) [facility] Start: 02-07-2017 Slings [facility] Start: 02-07-2017 IP CONSULT TO TRAUMA SURGERY [facility] Payers Date Payer Category Payer Medicaid [id number] 2019 Unknown [id number] 2017 Unknown 2014 Unknown [id number] 1990 Unknown [id number] 2.16.84 [id number] 1990 Unknown [id number] 2.16.84 [id number] 1990 Unknown [id number] 2.16.84 [id number] 1990 Unknown [id number] 2.16.84 [id number] 1990 Unknown [id number] 2.16.84 [id number] 1990 Unknown [id number] 2.16.8 [id number] 1990 Unknown [id number] 1959 Unknown [id number] Unknown O [id number] [id number] Social History Date Type Detail Facility Start: 08-11-2023 End: 06-08-2024 Tobacco smoking status NHIS Never smoked tobacco (finding) [facility] Start: 1990 Sex Assigned At Female [facility] Start: 06-08-2024 Sex Female (finding) [facility] Evaluation note 04-21-2024 Note Date & Type Note Facility 04-21-2024 Evaluation note Diagnosis Onset Date Resolution Acute right otitis media acute April 21, 2024 1:26pm Viral URI acute June 08, 2024 9:51am [facility] Work Phone: Evaluation note Note Date & Type Note Facility Evaluation note Diagnosis Onset Date Strep throat acute [facility] Work Phone: Evaluation note Note Date & Type Note Facility Evaluation note Diagnosis Onset Date Acute right otitis media acu te [facility] Work Phone: Summary Purpose Family History Relationship Condition Age at Onset Recorded Date/T jeri father Heart disease Unknown mother High blood cholesterol Unknown Advance Directives Advance Directive Response Recorded Date/ Time Advance Directives No December 21 5:59pm Advance Directive Response Recorded Date/ Time Advance Directives No December 21 4:59pm Chief Complaint and Reason for Visit Chief Complaint Sore throat Reason for Visit Strep throat Chief Complaint Sore throat Reason for Visit Acute right otitis m edia Chief Complaint Admit Date Sore throat April 21, 2024 1:26pm sore, swollen throat, fatigue May 262023 9:51am Reason for Visit Admit Date Acute right otitis media April 21, 2024 1:26pm Viral URI June 08, 2024 9:51am Additional Source Comments INFORMATION SOURCE (unrecogn ized section and content) DATE CREATED AUTHOR 01/19/2018 [facility] DATE CREATED AUTHOR AUTHOR'S ORGANIZ ATION 01/19/2018 [facility] DATE CREATED AUTHOR AUTHOR'S ORGANIZ ATION 08/26/2022 [facility] DATE CREATED AUTHOR AUTHOR'S ORGANIZ ATION 12/02/2022 [facility] DATE CREATED AUTHOR AUTHOR'S ORGANIZ ATION 06/26/2023 [facility] [employer] Care Teams (unrecognized sec tion and content) Team Status: Active Member Role Status Dates VI Rene Primary Care Provider Active Team Status: Inactive Member Role Status Dates VI Rene Primary Care Provider Active Start: December 22, 2023 End: December 22, 2023 Chaz Miller PA-C Attending Provider Active St art: December 22, 2023 End: December 22, 2023 Team Status: Inactive Member Role Status Dates VI Rene Primary Care Provider Active Start: April 21, 2024 End: April 21, 2024 Ketty Jones APRN Attending Provider Active S tart: April 21, 2024 End: April 21, 2024 Team Status: Inactive Member Role Status Dates VI Rene Primary Care Provider Active Start: June 08, 2024 End: June 08, 2024 Mayte Joiner APRN Attending Provider Active Start: June 08, 2024 End: June 08, 2024 Goals (unrecognized section and content) Goals may be documented in a n alternate sectionGoals may be documented in an alternate sectionGoals may be documented in an alternate section FOR RECORDS PERTAINING TO PATIENTS WHO ARE [...] BE BASED ON THE PRIMARY CLINICAL RECORDS. [facility]. provides no warranty or guarantee of the accuracy or completeness of information in this document.
== END 2024-07-21 10:13 | disposition home or self-care (01) ==
LOC: NOMS 10:13
PROVIDERS: Visit Provider Obstetrics & Gynecology
DX: Z34.91 Encounter for supervision of normal pregnancy, unspecified, first trimester (principal); Z3A.09 9 weeks gestation of pregnancy; N92.6 Irregular menstruation, unspecified
CPT/HCPCS: 76817

== ENCOUNTER 2024-08-15 16:12 | Outpatient (OUT) | payer MEDICAID, SELFPAY ==
[2024-08-15 16:33] LABS: Basophils Absolute Auto 0.1 10^3/uL (0.0-0.1); Basophils Percent Auto 0.5 % (0.2-2.0); Eosinophils Absolute Auto 0.2 10^3/uL (0.0-0.7); Eosinophils Percent Auto 1.6 % (0.9-7.0); Hematocrit 35.4 % (36.0-48.0); Hemoglobin 12.2 g/dL (12.0-16.0); Immature Granulocytes Abs Auto 0.05 10^3/uL (0.00-0.03); Immature Granulocytes Pct Auto 0.4 % (0.0-0.5); Lymphocytes Absolute Auto 1.8 10^3/uL (1.2-3.8); Lymphocytes Percent Auto 14.4 % (20.5-60.0); Mean Corpuscular HGB Conc 34.5 g/dL (29.9-35.2); Mean Corpuscular Volume 90.1 fL (81.0-99.0); Mean Platelet Volume 10.3 fL (9.5-13.5); Monocytes Absolute Auto 0.8 10^3/uL (0.3-0.8); Monocytes Percent Auto 5.9 % (1.7-12.0); Neutrophils Absolute Auto 9.8 10^3/uL (1.4-6.5); Neutrophils Percent Auto 77.2 % (43.0-75.0); Platelet Count 338 10^3/uL (150-450); Red Blood Count 3.93 10^6/uL (4.20-5.40); White Blood Count 12.7 10^3/uL (4.0-11.0)
[2024-08-15 16:43] LABS: Estimated Average Glucose 91 mg/dL; Glycohemoglobin A1C 4.8 % (4.5-6.2)
[2024-08-15 18:01] LABS: Amphetamine Screen Urine NEGATIVE (NEGATIVE); Barbiturates Screen Urine NEGATIVE (NEGATIVE); Benzodiazepines Screen Urine NEGATIVE (NEGATIVE); Buprenorphine Screen Urine NEGATIVE (NEGATIVE); Cannabinoid Screen Urine NEGATIVE (NEGATIVE); Cocaine Screen Urine NEGATIVE (NEGATIVE); Methadone Screen Urine NEGATIVE (NEGATIVE); Methamphetamines Screen Urine NEGATIVE (NEGATIVE); Opiate Screen Urine NEGATIVE (NEGATIVE); Oxycodone Screen Urine NEGATIVE (NEGATIVE); Phencyclidine Screen Urine NEGATIVE (NEGATIVE); Tricyclic Antidepressant Urine NEGATIVE (NEGATIVE)
[2024-08-17 06:11] LABS: HBsAg Screen Negative (Negative); HCV Ab Non Reactive (Non Reactive); HIV Ab/p24 Ag Screen Non Reactive (Non Reactive)
[2024-08-17 07:07] LABS: Rubella Antibodies, IgG 3.08 index (Immune >0.99)
[2024-08-17 13:07] LABS: Rapid Plasma Reagin, Quant Non Reactive titer (NonRea<1:1)
== END 2024-08-15 16:13 | disposition home or self-care (01) ==
LOC: LAB 16:12
PROVIDERS: Visit Provider Obstetrics & Gynecology
DX: Z34.01 Encounter for supervision of normal first pregnancy, first trimester (principal); N92.6 Irregular menstruation, unspecified
CPT/HCPCS: 36415; 80307; 83036; 85025; 86592; 86762; 86803; 86850; 86900; 86901; 87086; 87340; 87389

== ENCOUNTER 2024-09-06 13:59 | Outpatient (OUT) | payer MEDICAID, SELFPAY ==
--- OUTSIDE RECORDS SUMMARY | 2024-09-06 14:13 | XMS_ITS | CCD ---
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 COMPARISON: 02/06/2017 CLINICAL INDICATION: Cough. FINDINGS: The cardiomediastinal silhouette is within normal limits. No focal consolidation. No pleural effusion. No pneumothorax. IMPRESSION: No radiographic evidence of acute cardiopulmonary abnormality. 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 [facility] Drug Scr, Abuse, Uron 2016 Amphetamine(s),Ur Negative Normal NEG [facility] Comment on above: Result Comment: (Pos itive cutoff 1000 ng/mL) Performed By: #### U AMIC, MARLEEN ####[address] [address] Barbiturate(s),Ur Negative Normal NEG [facility] Comment on above: Result Comment: (Pos itive cutoff 200 ng/mL) Performed By: #### U AMIC, MARLEEN ####[address] [address] Base excess Negative Normal NEG [facility] Comment on above: Result Comment: (Pos itive cutoff 300 ng/mL) Performed By: #### U AMIC, MARLEEN ####[address] [address] Benzodiazepine(s) Negative Normal NEG [facility] Comment on above: Result Comment: (Pos itive cutoff 200 ng/mL) Performed By: #### U AMIC, MARLEEN ####[address] [address] Cannabinoid(s),Ur Negative Normal NEG [facility] Comment on above: Result Comment: (Pos itive cutoff 50 ng/mL) Performed By: #### U AMIC, MARLEEN ####[address] [address] Interpretive Info Assay provides medic al screening only. The absence of expected drug(s) and/or Normal [facility] Comment on above: Result Comment: meta bolite(s) may indicate diluted or adulterated urine, limitations of testing or timing of collection.Testing for legal purposes should be confirmed by another method. To request confirmation of test result, please call the lab within 7 days of sample submission.[employer] [address] [place] [id number] Performed By: #### U AMIC, MARLEEN ####[facility] [address] [place] [address] Opiate(s), Ur Positive Abnormal NEG [facility] Comment on above: Result Comment: (Pos itive cutoff 300 ng/mL) Performed By: #### U AMIC, MARLEEN ####[facility] [address] [place] [address] Oxycodone, Urine Negative Normal NEG [facility] Comment on above: Result Comment: (Pos itive cutoff 100 ng/mL) Performed By: #### U AMIC, MARLEEN ####[facility] [address] [place] [address] Phencyclidine, Ur Negative Normal NEG [facility] Comment on above: Result Comment: (Pos itive cutoff 25 ng/mL) Performed By: #### U AMIC, MARLEEN ####[facility] [address] [place] [address] Urine, methadone presence Negative Normal NEG [facility] Comment on above: Result Comment: (Pos itive cutoff 300 ng/mL) Performed By: #### U AMIC, MARLEEN ####[facility] [address] [place] [address] Buprenorphrine, Ur NOT REPORTED Normal NEG [facility] Comment on above: Performed By: #### U AMIC, MARLEEN ####[facility] [address] [place] [address] MDMA, Urine NOT REPORTED Normal NEG [facility] Comment on above: Performed By: #### U AMIC, MARLEEN ####[facility] [address] [place] [address] Methamphetamine, Ur NOT REPORTED Normal NEG [facility] Comment on above: Performed By: #### U AMIC, MARLEEN ####[address] [address] Propoxyphene,Urine NOT REPORTED Normal NEG [facility] Comment on above: Performed By: #### U ARDHA STODDARDU ####[id number] [place] [address] Urine, tricyclic antidepressants NOT REPORTED Normal NEG [facility] Comment on above: Performed By: #### U RADHA STODDARDU ####[address] [address] ED Noteon 02-07-2017 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 [facility] 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 URINE CULTURE REFLEXED Normal [facility] Comment on above: Performed By: #### P T/INR, PTT ####[id number] [place] [address] Urine, crystals in sediment NONE SEEN Normal NONE SEEN [facility] Comment on above: Performed By: #### P T/INR, PTT ####[address] [place] [address] Urine, bacteria in sediment Negative Normal [facility] Comment on above: Performed By: #### P T/INR, PTT ####[address] [place] [address] Urine, mucus presence in sediment Negative Normal NEGATIVE [facility] Comment on above: Performed By: #### P T/INR, PTT ####[address] [place] [address] Urine, casts in sediment NONE SEEN Normal NONE SEEN [facility] Comment on above: Performed By: #### P T/INR, PTT ####[address] [place] [address] Urine, epithelial cells in sediment Negative Normal NEGATIVE [facility] Comment on above: Performed By: #### P T/INR, PTT ####[address] [place] [address] Erythrocytes (RBC) 0-4/HPF Normal NONE SEEN [facility] Comment on above: Performed By: #### P T/INR, PTT ####[address] [place] [address] WBC (Leukocytes) NONE SEEN Normal NONE SEEN [facility] Comment on above: Performed By: #### P T/INR, PTT ####[address] [place] [address] Urine, leukocyte esterase presence Negative Normal NEGATIVE [facility] Comment on above: Performed By: #### P T/INR, PTT ####[address] [place] [address] Urine, nitrite presence Negative Normal NEGATIVE [facility] Comment on above: Performed By: #### P T/INR, PTT ####[address] [place] [address] Urobilinogen, Dipstick 0.2 Normal 0.2 - 1.0 [facility] Comment on above: Performed By: #### P T/INR, PTT ####[address] [place] [address] Protein, Qual Negative Normal NEGATIVE [facility] Comment on above: Performed By: #### P T/INR, PTT ####[address] [place] [address] Urine, pH 7.0 [pH] Normal 5.0 - 9.0 [facility] Comment on above: Performed By: #### P T/INR, PTT ####[address] [place] [address] Blood, Dipstick TRACE Abnormal NEGATIVE [facility] Comment on above: Performed By: #### P T/INR, PTT ####[address] [place] [address] Urine, specific gravity 1.015 Normal 1.005 - 1.030 [facility] Comment on above: Performed By: #### P T/INR, PTT ####[address] [place] [address] Ketone, Dipstick Negative Normal NEGATIVE [facility] Comment on above: Performed By: #### P T/INR, PTT ####[address] [place] [address] Bilirubin (direct) Negative Normal NEGATIVE [facility] Comment on above: Performed By: #### P T/INR, PTT ####[address] [place] [address] Glucose mass conc Negative Normal NEGATIVE [facility] Comment on above: Performed By: #### P T/INR, PTT ####[address] [place] [address] Urine, character CLEAR Normal CLEAR [facility] Comment on above: Performed By: #### P T/INR, PTT ####[address] [place] [address] Urine, color YELLOW Normal [facility] Comment on above: Performed By: #### P T/INR, PTT ####[address] [place] [address] Urinalysis w/ Microon 2016 ----- Normal [facility] Comment on above: Performed By: #### U AMIC, MARLEEN ####[address] [address] Acetaminophen mass conc Negative Normal NEG [facility] Comment on above: Performed By: #### U AMIC, MARLEEN ####[address] [address] Bilirubin (direct) Negative Normal NEG [facility] Comment on above: Performed By: #### U AMIC, MARLEEN ####[facility] [address] [place] [address] Hemoglobin mass conc (Bld) LARGE Abnormal NEG [facility] Comment on above: Performed By: #### U AMIC, MARLEEN ####[facility] [address] [place] [address] Nitrite,Ur Negative Normal NEG [facility] Comment on above: Performed By: #### U AMIC, MARLEEN ####[facility] [address] [place] [address] Turbidity CLEAR Normal CLEAR [facility] Comment on above: Performed By: #### U AMIC, MARLEEN ####[facility] [address] [place] [address] Urine WBC's 0 TO 2 Normal 0-5 [facility] Comment on above: Performed By: #### U AMIC, MARLEEN ####[facility] [address] [place] [address] Urine, casts in sediment 0 TO 2 HYALINE Normal 0-8 [facility] Comment on above: Result Comment: Refe rence range defined for non-centrifuged specimen. Performed By: #### U AMIC, MARLEEN ####[facility] [address] [place] [address] Urine, color YELLOW Normal YEL [facility] Comment on above: Performed By: #### U AMIC, MARLEEN ####[facility] [address] [place] [address] Urine, epithelial cells in sediment 0 TO 2 Normal 0-5 [facility] Comment on above: Result Comment: [facility] [address] [place] [address] Performed By: #### U AMIC, MARLEEN ####[facility] [address] [place] [address] Urine, erythrocytes 2 TO 5 Normal 0-4 [facility] Comment on above: Result Comment: Refe rence range defined for non-centrifuged specimen. Performed By: #### U AMIC, MARLEEN ####[facility] [address] [place] [address] Urine, glucose presence Negative Normal NEG [facility] Comment on above: Performed By: #### U AMIC, MARLEEN ####[facility] [address] [place] [address] Urine, leukocyte esterase presence Negative Normal NEG [facility] Comment on above: Performed By: #### U AMIC, MARLEEN ####[address] [place] [address] Urine, pH 6.0 [pH] Normal 5.0-8.0 [facility] Comment on above: Performed By: #### U AMIC, MARLEEN ####[address] [address] Urine, protein presence Negative Normal NEG [facility] Comment on above: Performed By: #### U RICHI, MARLEEN ####[address] [address] Urine, specific gravity 1.013 Normal 1.005-1.030 [facility] Comment on above: Performed By: #### U AMIC, MARLEEN ####[address] [address] Urobilinogen,Ur Normal Normal NORM [facility] Comment on above: Performed By: #### U AMICruz, MARLEEN ####[address] [address] Epithelial, Renal NOT REPORTED Normal 0 [facility] Comment on above: Performed By: #### U AMIC, MARLEEN ####[address] [address] Mucus Strands NOT REPORTED Normal NONE [facility] Comment on above: Performed By: #### U AMIC, MARLEEN ####[facility] [address] [place] [address] Other Observations NOT REPORTED Normal NREQ [facility] Comment on above: Performed By: #### U AMIC, MARLEEN ####[address] [address] Trichomonas NOT REPORTED Normal NONE [facility] Comment on above: Performed By: #### U AMIC, MARLEEN ####[address] [place] [address] Urine, amorphous sediment presence in sediment NOT REPORTED Normal NONE [facility] Comment on above: Performed By: #### U AMIC, MARLEEN ####[address] [place] [address] Urine, bacteria in sediment NOT REPORTED Normal NONE [facility] Comment on above: Performed By: #### U AMIC, MARLEEN ####[address] [place] [address] Urine, crystals in sediment NOT REPORTED Normal NONE [facility] Comment on above: Performed By: #### U AMIC, MARLEEN ####[address] [place] [address] Urine, yeast presence in sediment NOT REPORTED Normal NONE [facility] Comment on above: Performed By: #### U AMIC, MARLEEN ####[address] [place] [address] XR CHEST PA OR AP (1 VIEW)on [...] injury.Report electronically signed by: Dr. Chilo Fernandez [facility] XR SHOULDER RTon 02-07-2017 XR SHOULDER RT [...] joint injury.Report electronically signed by: Dr. Chilo Brush [facility] APTTon 02-06-2017 aPTT 29.1 s Normal 23.0 - 37.0 [facility] Comment on above: Performed By: #### P T/INR, PTT ####[facility] [place] [address] Basic Metabolic Panelon 01-23 eGFR (non-black) 108.65 Normal [facility] Comment on above: Result Comment: eGFR Interpretation:Normal: Equal to or greater than 60 mL/min/1.73 meters squaredChronic Kidney Disease: Less than 60 mL/min/1.73 meters squaredKidney Failure: Less than 15 mL/min/1.73 meters squared Performed By: #### B MP, LIVER PROFILE ####[address] [place] [address] eGFR (non-black) 114.39 Normal [facility] Comment on above: Result Comment: eGFR Interpretation:Normal: Equal to or greater than 60 mL/min/1.73 meters squaredChronic Kidney Disease: Less than 60 mL/min/1.73 meters squaredKidney Failure: Less than 15 mL/min/1.73 meters squared Performed By: #### B MP, LIVER PROFILE ####[address] [place] [address] eGFR (non-black) 108.1 Normal [facility] Comment on above: Result Comment: eGFR Interpretation:Normal: Equal to or greater than 60 mL/min/1.73 meters squaredChronic Kidney Disease: Less than 60 mL/min/1.73 meters squaredKidney Failure: Less than 15 mL/min/1.73 meters squared Performed By: #### B MP, LIVER PROFILE ####[address] [place] [address] eGFR (non-black) 81.88 Normal [facility] Comment on above: Result Comment: eGFR Interpretation:Normal: Equal to or greater than 60 mL/min/1.73 meters squaredChronic Kidney Disease: Less than 60 mL/min/1.73 meters squaredKidney Failure: Less than 15 mL/min/1.73 meters squared Performed By: #### B MP, LIVER PROFILE ####[address] [place] [address] eGFR (non-black) 125.60 Normal [facility] Comment on above: Performed By: #### B MP, LIVER PROFILE ####[address] [place] [address] eGFR (non-black) 132.24 Normal [facility] Comment on above: Performed By: #### B MP, LIVER PROFILE ####[address] [place] [address] eGFR (non-black) 124.64 Normal [facility] Comment on above: Performed By: #### B MP, LIVER PROFILE ####[address] [place] [address] eGFR (non-black) 94.39 Normal [facility] Comment on above: Performed By: #### B MP, LIVER PROFILE ####[address] [place] [address] Age 26 year(s) Normal [facility] Comment on above: Performed By: #### B MP, LIVER PROFILE ####[address] [place] [address] Calcium 10.1 mg/dL Normal 8.4 - 10.2 [facility] Comment on above: Performed By: #### B MP, LIVER PROFILE ####[address] [place] [address] Chloride 103 mmol/L Normal 98 - 107 [facility] Comment on above: Performed By: #### B MP, LIVER PROFILE ####[address] [place] [address] CO2 25 mmol/L Normal 22 - 32 [facility] Comment on above: Performed By: #### B MP, LIVER PROFILE ####[address] [place] [address] Creatinine 0.96 mg/dL Normal 0.52 - 1.04 [facility] Comment on above: Performed By: #### B MP, LIVER PROFILE ####[address] [place] [address] Glucose mass conc 126 mg/dL High 65 - 100 [facility] Comment on above: Performed By: #### B MP, LIVER PROFILE ####[address] [place] [address] Potassium molar conc 3.9 mmol/L Normal 3.6 - 5.0 [facility] Comment on above: Performed By: #### B MP, LIVER PROFILE ####[address] [place] [address] Sodium 139 mmol/L Normal 135 - 145 [facility] Comment on above: Performed By: #### B MP, LIVER PROFILE ####[address] [place] [address] Urea nitrogen 20 mg/dL High 7 - 17 [facility] Comment on above: Performed By: #### B MP, LIVER PROFILE ####[address] [place] [address] CBC W Auto Differentialon - Abs Neut # 9.0 10 X 3/mm High 1.8 - 7.7 [facility] Comment on above: Performed By: #### C BC Auto Diff ####[address] [place] [address] Basophils/100 WBC Auto (Bld) 1 % High 0 - 1 [facility] Comment on above: Performed By: #### C BC Auto Diff ####[address] [place] [address] Eosinophils 0.1 10 X 3/mm Normal 0.0 - 0.5 [facility] Comment on above: Performed By: #### C BC Auto Diff ####[address] [address] [place] [address] Eosinophils/100 leukocytes 1 % Normal 0 - 5 [facility] Comment on above: Performed By: #### C BC Auto Diff ####[place] [address] [place] [address] Erythrocyte distribution width Auto Ratio (RBC) 15.1 % High 11.5 - 14.5 [facility] Comment on above: Performed By: #### C BC Auto Diff ####[place] [address] [place] [address] Erythrocytes (RBC) 4.28 10 X 6/mm Normal 4.20 - 5.40 [facility] Comment on above: Performed By: #### C BC Auto Diff ####[place] [address] [place] [address] Hematocrit (HCT) 36.3 % Normal 36.0 - 47.0 [facility] Comment on above: Performed By: #### C BC Auto Diff ####[place] [address] [place] [address] Hemoglobin mass conc (Bld) 12.4 g/dL Normal 12.0 - 16.0 [facility] Comment on above: Performed By: #### C BC Auto Diff ####[place] [address] [place] [address] Lymphocytes 2.3 10 X 3/mm Normal 1.0 - 4.0 [facility] Comment on above: Performed By: #### C BC Auto Diff ####[place] [address] [place] [address] Lymphocytes/100 leukocytes 19 % Low 20 - 40 [facility] Comment on above: Performed By: #### C BC Auto Diff ####[place] [address] [place] [address] MCH 29.0 pg Normal 27.0 - 35.0 [facility] Comment on above: Performed By: #### C BC Auto Diff ####[place] [address] [place] [address] MCHC mass conc (RBC) 34.2 g/dL Normal 32.0 - 36.0 [facility] Comment on above: Performed By: #### C BC Auto Diff ####[place] [address] [place] [address] MCV 84.9 fL Normal 80.0 - 100.0 [facility] Comment on above: Performed By: #### C BC Auto Diff ####[place] [address] [place] [address] Monocytes/100 leukocytes 6 % Normal 1 - 15 [facility] Comment on above: Performed By: #### C BC Auto Diff ####[place] [address] [place] [address] Neutrophils/100 WBC Auto (Bld) 74 % High 50 - 70 [facility] Comment on above: Performed By: #### C BC Auto Diff ####[place] [address] [place] [address] Platelet mean volume (PMV) 8.0 fL Normal 7.5 - 11.5 [facility] Comment on above: Performed By: #### C BC Auto Diff ####[place] [address] [place] [address] Platelets 454 uLx10 High 150 - 450 [facility] Comment on above: Performed By: #### C BC Auto Diff ####[place] [address] [place] [address] WBC (Leukocytes) 12.2 10 X 3/mm High 3.7 - 11.0 [facility] Comment on above: Performed By: #### C BC Auto Diff ####[place] [address] [place] [address] CT BRAIN WOon 02-06-2017 Thyroid stimulating hormone [...] effectReport electronically signed by: Dr. Zaire Babcock [facility] CT CERVICAL SPINE WOon 02-06 CT CERVICAL [...] indicated.Report electronically signed by: Dr. Mahamed King [facility] CT SINUS/FACIAL WOon 017 CT SINUS/FACIAL WO [...] electronically signed by: Dr. Hal Ayoub Normal [facility] Hepatic Function Panelon Alanine aminotransferase (ALT) 30 U/L Normal 7 - 52 [facility] Comment on above: Performed By: #### B MP, LIVER PROFILE ####[place] [address] [place] [address] Albumin 3.8 g/dL Normal 3.5 - 5.0 [facility] Comment on above: Performed By: #### B MP, LIVER PROFILE ####[place] [address] [place] [address] Alkaline phosphatase (ALP) 63 U/L Normal 38 - 126 [facility] Comment on above: Performed By: #### B MP, LIVER PROFILE ####[place] [address] [place] [address] Aspartate aminotransferase (AST) 22 U/L Normal 14 - 36 [facility] Comment on above: Performed By: #### B MP, LIVER PROFILE ####[place] [address] [place] [address] Bilirubin (direct) 0.0 mg/dL Normal 0.0 - 0.2 [facility] Comment on above: Performed By: #### B MP, LIVER PROFILE ####[place] [address] [place] [place] [address] Bilirubin (total) 0.8 mg/dL Normal 0.2 - 1.3 [facility] Comment on above: Performed By: #### B MP, LIVER PROFILE ####[place] [address] [place] [address] Protein 6.9 g/dL Normal 6.3 - 8.2 [facility] Comment on above: Performed By: #### B MP, LIVER PROFILE ####[address] [place] [address] PT/INRon 02-06-2017 INR Coag RelTime (Bld) See Comments Normal [facility] Comment on above: Result Comment: [place] [...] 2.5-3.5 Performed By: #### P T/INR, PTT ####[address] [place] [address] INR Coag RelTime (PPP) 0.94 Normal 0.90 - 1.10 [facility] Comment on above: Performed By: #### P T/INR, PTT ####[address] [place] [address] Prothrombin time (PT) Coag time (PPP) 12.6 s Normal [facility] Comment on above: Performed By: #### P T/INR, PTT ####[address] [place] [address] Troponin I, Extra Sensitiveo n 02-06-2017 Troponin I.cardiac mass conc ng/mL Normal 0.000 - 0.034 [facility] Comment on above: Result Comment: Limi t of Detection: <0.012 ng/mLAt Risk of Myocardial Damage: 0.012-0.034 ng/mLProbable Myocardial Damage: >0.034 ng/mL Performed By: #### T ROPONIN I ####[place] [address] [place], [place] [id number] hCG, Qualitative-Serumon Internal Control ACCEPTABLE Normal [facility] Comment on above: Performed By: #### H CG,QUAL SERUM ####[place] [address] [place], [place] [id number] hCG, Qualitative-Serum Negative Normal NEGATIVE [facility] Comment on above: Performed By: #### H CG,QUAL SERUM ####[place] [address] [place], [place] [address] Vital Signs Date Time Vital Sign Value Performing Clinician Facility 08-21-2024 13:18-0500 Body mass index (BMI) [Ratio] 31.12 kg/m2 meevl Work Phone: [facility] 08-21-2024 13:18-0500 Body weight 84.82 kg meevl Work Phone: [facility] 08-21-2024 13:18-0500 Diastolic blood pressure 70 mm[Hg] meevl Work Phone: [facility] 08-21-2024 13:18-0500 Systolic blood pressure 120 mm[Hg] meevl Work Phone: [facility] 07-21-2024 11:10-0500 Body mass index (BMI) [Ratio] 29.45 kg/m2 [facility] 07-21-2024 11:10-0500 Body weight 80.29 kg [facility] 07-21-2024 11:10-0500 Diastolic blood pressure 76 mm[Hg] [facility] 07-21-2024 11:10-0500 Systolic blood pressure 124 mm[Hg] [facility] 06-08-2024 10:32-0500 Body height 165.1 cm [facility] 06-08-2024 10:32-0500 Body mass index (BMI) [Ratio] 29.1 kg/m2 [facility] 06-08-2024 10:32-0500 Body temperature 97.5 [degF] [facility] 06-08-2024 10:32-0500 Body weight 79.37 kg [facility] 06-08-2024 10:32-0500 Diastolic blood pressure 89 mm[Hg] [facility] 06-08-2024 10:32-0500 Heart rate 93 /min [facility] 06-08-2024 10:32-0500 Respiratory rate 18 /min [facility] 06-08-2024 10:32-0500 SaO2% (BldA) [Mass fraction] 98 % [facility] 06-08-2024 10:32-0500 Systolic blood pressure 130 mm[Hg] [facility] 04-21-2024 13:40-0400 Body height 165.1 cm [facility] 04-21-2024 13:40-0400 Body mass index (BMI) [Ratio] 28.1 kg/m2 [facility] 04-21-2024 13:40-0400 Body temperature 99.4 [degF] [facility] 04-21-2024 13:40-0400 Body weight 76.82 kg [facility] 04-21-2024 13:40-0400 Diastolic blood pressure 84 mm[Hg] [facility] 04-21-2024 13:40-0400 Heart rate 85 /min [facility] 04-21-2024 13:40-0400 Respiratory rate 18 /min [facility] 04-21-2024 13:40-0400 SaO2% (BldA) [Mass fraction] 99 % [facility] 04-21-2024 13:40-0400 Systolic blood pressure 126 mm[Hg] [facility] 12-22-2023 18:07-0400 Body height 165.1 cm [facility] 12-22-2023 18:07-0400 Body mass index (BMI) [Ratio] 27.8 kg/m2 [facility] 12-22-2023 18:07-0400 Body temperature 98.7 [degF] [facility] 12-22-2023 18:07-0400 Body weight 75.74 kg [facility] 12-22-2023 18:07-0400 Heart rate 84 /min [facility] 12-22-2023 18:07-0400 Respiratory rate 18 /min [facility] 12-22-2023 18:07-0400 SaO2% (BldA) [Mass fraction] 99 % [facility] Encounters Encounter Date Encounter Type Care Provider Facility Start: 08-21-2024 End: 08-21-2024 Bamboo flowsheet Kermit Elayne DO Work Phone: [facility] Start: 08-21-2024 End: 08-21-2024 Bamboo flowsheet Kermit Elayne DO Work Phone: [facility] Start: 08-21-2024 End: 08-21-2024 Office outpatient visit 15 minutes Kermit Elayne DO Work Phone: [facility] Comment on above: 14 weeks gestation o f ; Second trimester ; Tinea pedis, unspecified laterality; History of pre-eclampsia; History of anemia Start: 08-21-2024 End: 08-21-2024 ambulatory KERMIT ELAYNE Not Available Start: 08-15-2024 End: 08-15-2024 Clinisync Result Encounter Kermit Elayne DO Work Phone: [facility] Unsolicited Start: 08-15-2024 End: 08-15-2024 Clinisync Result Encounter Kermit Elayne DO Work Phone: [facility] Unsolicited Start: 07-21-2024 End: 07-21-2024 ambulatory [facility] Elayne Nurse [facility] Comment on above: GA: 10w0d Start: 06-08-2024 End: 06-08-2024 ambulatory [facility] Work Phone: Start: 06-08-2024 End: 06-08-2024 Patient encounter procedure [facility] Work Phone: Start: 04-21-2024 End: 04-21-2024 ambulatory [facility] Work Phone: Start: 04-21-2024 End: 04-21-2024 Patient encounter procedure [facility] Work Phone: Start: 12-22-2023 End: 12-22-2023 ambulatory [facility] Work Phone: Start: 12-22-2023 End: 12-22-2023 Patient encounter procedure [facility] Work Phone: Start: 12-01-2022 ambulatory Facility:[facility] Start: 08-24-2022 End: 08-25-[address] MECHE LE Facility:[facility] Start: 08-19-2022 End: 08-19-[address] KERMIT HOLLY Facility:[facility] Start: 07-30-2022 End: 07-30-2022 ambulatory LEANDRO VERDUZCO Facility:[facility] Start: 03-11-2022 End: 03-11-[address] KEMRIT HOLLY Facility:[facility] Start: 11-23-2021 End: 11-23-2021 ambulatory LEANDRO VERDUZCO Facility:[facility] Start: 02-07-2017 End: 02-07-2017 Ambulatory [facility] Start: 02-06-2017 End: 02-07-2017 Emergency department patient visit IBRAHIMA WARE Facility:[facility] Procedures Date Procedure Procedure Detail Performing Clinician Start: 08-21-2024 Urnls dip stick/tabl et rgnt non-auto w/o micrscp Kermit Elayne DO Work Phone: Start: 08-15-2024 ALL CBC WITH AUTO DIFF Kermit Elayne DO Work Phone: Start: 07-21-2024 Urnls dip stick/tabl et rgnt non-auto w/o micrscp Kermit Holly DO Work Phone: Start: 06-08-2024 Quick Strep (POC) Start: 04-21-2024 Quick Strep (POC) Start: 12-22-2023 Quick Strep (POC) Start: 02-07-2017 IP CONSULT TO ORTHOP EDIC SURGERY ALTA GOODRICH Start: 02-07-2017 NURSING COMMUNICATION P AUSrinivasan GOODRICH Start: 02-07-2017 DISCHARGE PATIENT ALTA GOODRICH Start: 02-07-2017 URINALYSIS WITH MICROSCOPIC ALTA GOODRICH Start: 02-07-2017 URINE DRUG SCREEN ALTA GOODRICH Start: 02-07-2017 DIET GENERAL ALTA MCNULTY Start: 02-07-2017 ETHANOL [facility]TA MCNULTY Start: 02-07-2017 FULL CODE [facility]TA MCNULTY Start: 02-07-2017 NOTIFY PHYSICIAN (SPECIFY) ALTA GOODRICH [...] IP CONSULT TO TRAUMA SURGERY ALTA GOODRICH Plan of Treatment Date Care Activity Detail Author Start: 09-18-2024 End: 09-18-2024 Patient encounter procedure 09/18/2024 1:30 PM EST Routine [facility] [address] [place] [address] Loraine Payne PA [address] [place] [address] [facility] Start: 08-21-2024 End: 09-21-2024 Alpha fetoprotein, maternal Alpha fetoprotein, maternal Lab Routine 14 weeks gestation of Second trimester Expected: 08/21/2024 (Approximate), Expires: 09/21/2024 [facility] Work Phone: Comment on above: Expected: 08/21/2024 (Approximate), Expires: 09/21/2024 Start: 08-21-2024 End: 08-21-2024 Patient encounter procedure [facility] Comment on above: Arrived Start: 07-21-2024 End: 07-21-2025 ABO/Rh ABO/Rh Lab Routine Missed menses , unspecified gestational age Expected: 07/21/2024 (Approximate), Expires: 07/21/2025 [facility] Comment on above: Expected: 07/21/2024 (Approximate), Expires: 07/21/2025 Start: 07-21-2024 End: 07-21-2025 Blood type and Indirect antibody screen panel - Blood Type and screen Lab Routine Missed menses , unspecified gestational age Expected: 07/21/2024 (Approximate), Expires: 07/21/2025 [facility] Work Phone: Comment on above: Expected: 07/21/2024 (Approximate), Expires: 07/21/2025 Start: 07-21-2024 End: 07-21-2025 Drugs of abuse panel - Urine by Screen method Rapid drug screen, urine Lab Routine , unspecified gestational age Encounter for supervision of normal first in first trimester Expected: 07/21/2024 (Approximate), Expires: 07/21/2025 [facility] Comment on above: Expected: 07/21/2024 (Approximate), Expires: 07/21/2025 Start: 07-21-2024 End: 07-21-2025 US Pelvis transvaginal US OB transvaginal Imaging Routine Missed menses Expected: 07/21/2024 (Approximate), Expires: 07/21/2025 [facility] Comment on above: Expected: 07/21/2024 (Approximate), Expires: 07/21/2025 Bacteria identified in Urine by Culture Urine culture Microbiology Routine Missed menses Ordered: 07/21/2024 [facility] Comment on above: Ordered: 07/21/2024 CBC W Auto Different ial panel - Blood CBC and differential Lab Routine Missed menses , unspecified gestational age Ordered: 07/21/2024 [facility] Comment on above: Ordered: 07/21/2024 Hemoglobin A1c/Hemoglobin.total in Blood Hemoglobin A1c Lab Routine Missed menses , unspecified gestational age Ordered: 07/21/2024 [facility] Comment on above: Ordered: 07/21/2024 Hepatitis B virus surface Ag [Presence] in Serum or Plasma by Immunoassay Hepatitis B surface antigen Lab Routine Missed menses , unspecified gestational age Ordered: 07/21/2024 [facility] Comment on above: Ordered: 07/21/2024 Hepatitis C virus Ab [Presence] in Serum or Plasma by Immunoassay Hepatitis C antibody Lab Routine Missed menses , unspecified gestational age Ordered: 07/21/2024 [facility] Comment on above: Ordered: 07/21/2024 HIV-1/HIV-2 antigen/antibody combination immunoassay HIV-1 and HIV-2 antibodies Lab Routine Missed menses , unspecified gestational age Ordered: 07/21/2024 [facility] Comment on above: Ordered: 07/21/2024 Reagin Ab [Presence] in Serum by RPR RPR Lab Routine Missed menses , unspecified gestational age Ordered: 07/21/2024 [facility] Comment on above: Ordered: 07/21/2024 Rubella antibody, IgG Rubella an tibody, IgG Lab Routine Missed menses , unspecified gestational age Ordered: 07/21/2024 [facility] Comment on above: Ordered: 07/21/2024 Payers Date Payer Category Payer Medicaid [employer] [place] [id number] 2022 Medicaid [id number] 2019 Unknown [id number] 2017 Unknown 2014 Unknown [id number] 1990 Unknown [id number] 1990 Unknown [id number] 1990 Unknown [id number] 1990 Unknown [id number] 1990 Unknown [id number] 1990 Unknown [id number] 1990 Unknown [id number] 1990 Unknown [id number] 1959 Unknown [id number] Unknown O [id number] Social History Date Type Detail Facility Start: 03-31-2023 End: 08-11-2023 Tobacco smoking status WIIS Never smoked tobacco (finding) [facility] Start: 1990 Sex Assigned At Female F [facility] Start: 06-08-2024 Sex Female (finding) [facility] Start: 03-31-2023 Tobacco use and exposure Smokeless tobacco non-user [facility] Start: 07-21-2024 End: 08-21-2024 Alcoholic beverage intake Current drinker of alcohol (finding) [facility] Start: 07-12-2024 History of Social function [facility] Start: 07-12-2024 Tobacco use panel [facility] Start: 03-31-2023 Alcohol Comment Occasional alcohol u se [facility] Start: 05-26-2024 [facility] Start: 04-22-2023 Gender identity Identifies as female gender (finding) [facility] History of Present illness Narrative 08-21-2024 Roxana GarciaCARA - 08/21/2024 1:10 PM EST Note Date & Type Note Facility 08-21-2024 History of Presen t illness Narrative Reason for Appointment: Patient ID: Lynnette Villarreal is a 33 y.o. female who presents for Well Women Visit Patient presents today for Return OB appointment. MEDICATIONS No current outpatient medications ALLERGIES Allergies Allergen Reactions Amoxicillin Hives and Rash Azithromycin Hives and Rash Cefaclor Hives and Rash Clarithromycin Hives and Rash Doxycycline Hives and Rash Sulfa Antibiotics Hives and Rash Sulfamethoxazole-Trimethoprim Hives and Rash PROBLEMS Active Ambulatory Problems Diagnosis Date Noted No Active Ambulatory Problems Resolved Ambulatory Problems Diagnosis Date Noted No Resolved Ambulatory Problems No Additional Past Medical History HISTORY PAST MEDICAL HISTORY SOCIAL HISTORY History reviewed. No pertinent past medical history. Social History Tobacco Use Smoking status: Never Smokeless tobacco: Never Substance Use Topics Alcohol use: Yes Comment: Occasional alcohol use Drug use: Never FAMILY HISTORY No family history on file. SURGICAL HISTORY Past Surgical History: Procedure Laterality Date PAP SMEAR 03/11/2022 negative REVIEW OF SYSTEMS Review of Systems: Review of Systems All other systems reviewed and are negative. OBJECTIVE Objective: OBGyn Exam Vitals: Estimated body mass index is 31.12 kg/m as calculated from the following: Height as of 06/24/23: 5' 5 . Weight as of this encounter: 187 lb. BP: 120/70 Patient's last menstrual period was 05/14/2024. ASSESSMENT & PLAN ICD-10-CM 1. 14 weeks gestation of Z3A.14 POCT urinalysis dipstick manually resulted Alpha fetoprotein, maternal Alpha fetoprotein, maternal 2. Second trimester Z34.92 POCT urinalysis dipstick manually resulted Alpha fetoprotein, maternal Alpha fetoprotein, maternal New OB: Patient presents today for 1st time obstetrics appointment with provider. Patient is currently 14w3d . Patients history has been reviewed in great detail including any potential risks. Patient stated she currently has no complaints. Expectations throughout regarding labs, ultrasounds, and appointments have been discussed with the patient in detail. It was reiterated that the patient is to drink 6-8 glasses of water a day, eat 6 small meals a day, do not consume raw or undercooked meat, and stay away [facility]. Patient has been consulted regarding any further do's and don'ts of . Patient voiced understanding and all questions and concerns were answered. Discussed patient starting 81mg Aspirin daily for remainder of . Patient complaints of athletes foot and medication will be sent to pharmacy. Orders Placed This Encounter Procedures Alpha fetoprotein, maternal POCT urinalysis dipstick manually resulted Follow Up: Patient is to return in 4 weeks for routine OB appointment. Documented by Roxana Garcia LPN on behalf of: Kermit Holly DO documented in this encounter [facility] History of Present illness Narrative 07-21-2024 Keiko Bruce MA - 07/21/2024 10:30 AM EST Note Date & Type Note Facility 07-21-2024 History of Presen t illness Narrative Reason for Appointment: Patient ID: Lynnette Villarreal is a 33 y.o. female who presents for Amenorrhea Patient presents today for a Nurse OB Intake appointment. Patient is 10w0d with a Estimated Date of Delivery: 02/16/25 OB History Para Term AB Living 5 2 2 2 SAB IAB Ectopic Multiple Live Births 2 # Outcome Date GA Lbr Carlos/2nd Weight Sex Type Anes PTL Lv 5 Current 4 AB 2023 3 AB 2023 2 Para 04/23/20 Vag-Spont BERRY 1 Para 01/25/18 Vag-Spont BERRY Current Medications: has a current medication list which includes the following prescription(s): bupropion xl. Medical History: Active Ambulatory Problems Diagnosis Date Noted No Active Ambulatory Problems Resolved Ambulatory Problems Diagnosis Date Noted No Resolved Ambulatory Problems No Additional Past Medical History No family history on file. Social History Tobacco Use Smoking status: Never Smokeless tobacco: Never Substance Use Topics Alcohol use: Yes Comment: Occasional alcohol use Drug use: Never Past Surgical History: Procedure Laterality Date PAP SMEAR 03/11/2022 negative Allergies Allergen Reactions Amoxicillin Hives and Rash Azithromycin Hives and Rash Cefaclor Hives and Rash Clarithromycin Hives and Rash Doxycycline Hives and Rash Sulfa Antibiotics Hives and Rash Sulfamethoxazole-Trimethoprim Hives and Rash Vitals: Estimated body mass index is 29.45 kg/m as calculated from the following: Height as of 23: 5' 5 . Weight as of this encounter: 177 lb. BP: 124/76 Patient's last menstrual period was 05/14/2024. Assessment/Plan Diagnoses and all orders for this visit: Missed menses - Type and screen; Future - ABO/Rh; Future - CBC and differential - Hemoglobin A1c - RPR - Rubella antibody, IgG - Hepatitis B surface antigen - Hepatitis C antibody - HIV-1 and HIV-2 antibodies - Urine culture - US OB transvaginal; Future - POCT , urine manually resulted - POCT urinalysis dipstick manually resulted , unspecified gestational age - Type and screen; Future - ABO/Rh; Future - CBC and differential - Hemoglobin A1c - RPR - Rubella antibody, IgG - Hepatitis B surface antigen - Hepatitis C antibody - HIV-1 and HIV-2 antibodies - Rapid drug screen, urine; Future Encounter for supervision of normal first in first trimester - Rapid drug screen, urine; Future Nurse Note: OB Intake: Patient presents today for first OB visit. Patients history has been reviewed in great detail including any potential risks. Patient signed consent forms and patient desires testing in both trimesters. Patient currently has no complaints and has been advised to drink 6-8 glasses of water a day, eat no raw or undercooked meat, and stay away from [facility]. Patient has also been advised to not change litter boxes and eat 6 small meals a day. Patient has been consulted regarding the do's and don'ts of . Patient was given labs and all questions and concerns were answered. Follow Up: Patient is to return in 4 weeks for routine OB appointment. Follow Up: Patient is to have labs drawn at directed and return to office for initial OB appointment with provider. Patient may call office as needed with any concerns or questions. Nurse Visit Completed by: Keiko Bruce MA documented in this encounter [facility] Evaluation note 04-21-2024 Note Date & Type Note Facility 04-21-2024 Evaluation note Diagnosis Onset Date Resolution Acute right otitis media acute April 21, 2024 1:26pm Viral URI acute June 08, 2024 9:51am [facility] Work Phone: Evaluation note Note Date & Type Note Facility Evaluation note Diagnosis Onset Date Strep throat acute [facility] Work Phone: Evaluation note Note Date & Type Note Facility Evaluation note Diagnosis Onset Date Acute right otitis media acu te [facility] Work Phone: Evaluation note Note Date & Type Note Facility Evaluation note Diagnosis Missed menses , unspecified gestational age Encounter for supervision of normal first in first trimester documented in this encounter [facility] Evaluation note Note Date & Type Note Facility Evaluation note Diagnosis 14 weeks gestation of Second trimester state, incidental Tinea pedis, unspecified laterality History of pre-eclampsia History of anemia Personal history of diseases of blood and blood-forming organs documented in this encounter [facility] Summary Purpose Family History No Family History Records Found Relationship Condition Age at Onset Recorded Date/T jeri father Heart disease Unknown mother High blood cholesterol Unknown Advance Directives No Advanced Directives Records Found Advance Directive Response Recorded Date/ Time Advance [...] section and content) DATE CREATED AUTHOR 01/19/2018 [facility] DATE CREATED AUTHOR AUTHOR'S ORGANIZ ATION 01/19/2018 [facility] DATE CREATED AUTHOR AUTHOR'S ORGANIZ ATION 08/26/2022 [facility] DATE CREATED AUTHOR AUTHOR'S ORGANIZ ATION 12/02/2022 [facility] DATE CREATED AUTHOR AUTHOR'S ORGANIZ ATION 08/22/2024 [facility] EPIC Care Teams (unrecognized sec tion and content) Team Status: Active Member Role Status Dates Violet Cerda NP-C Primary Care Provider Active Team Status: Inactive Member Role Status Dates Violet Cerda NP-C Primary Care Provider Active Start: December 22, 2023 End: December 22, 2023 Chaz Miller PA-C Attending Provider Active St art: December 22, 2023 End: December 22, 2023 Team Status: Inactive Member Role Status Dates Violet Cerda NP-Cruz Primary Care Provider Active Start: April 21, 2024 End: April 21, 2024 Ketty Jones APRN Attending Provider Active S tart: April 21, 2024 End: April 21, 2024 Team Status: Inactive Member Role Status Dates Violet Cerda NP-Cruz Primary Care Provider Active Start: June 08, 2024 End: June 08, 2024 Mayte Joiner APRN Attending Provider Active Start: June 08, 2024 End: June 08, 2024 [employer]r Relationship Specialty Start Date End Date Cuco Munoz MD [address] [place] [id number] PCP - General Family Medicine 06/24/23 [employer]r Relationship Specialty Start Date End Date Cuco Munoz MD [address] [place] [id number] PCP - General Family Medicine 06/24/23 [employer] G[employer]r Relationship Specialty Start Date End Date Cuco Munoz MD [address] [place] [id number] PCP - General Family Medicine 06/24/23 Goals (unrecognized section and content) Goals may be documented in a n alternate sectionGoals may be documented in an alternate sectionGoals may be documented in an alternate section Reason for Visit (unrecogniz ed section and content) Reason Comments Amenorrhea Reason Comments [facility] Visit FOR RECORDS PERTAINING TO PATIENTS WHO ARE [...] BE BASED ON THE PRIMARY CLINICAL RECORDS. [facility] [employer] [facility]. provides no warranty or guarantee of the accuracy or completeness of information in this document.
[2024-09-08 03:08] LABS: AFP Value 54.2 ng/mL (.); Gest. Age on Collection Date 16.7 weeks (.); Gestat. Age Based On Ultrasound (.); Insulin Dep Diabetes No (.); Maternal Age At EDD 34.1 yr (.); OSBR Risk 1 IN 1551 (.); Results Report (.)
== END 2024-09-06 14:00 | disposition home or self-care (01) ==
LOC: LAB 13:59
PROVIDERS: Visit Provider Obstetrics & Gynecology
DX: Z34.92 Encounter for supervision of normal pregnancy, unspecified, second trimester (principal)
CPT/HCPCS: 36415; 82105

== ENCOUNTER 2024-09-18 21:22 | Outpatient (REF) | payer MEDICAID, SELFPAY ==
--- OUTSIDE RECORDS SUMMARY | 2024-09-18 21:28 | XMS_ITS | CCD ---
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 detection of premalignant and malignant conditions of the uterine cervix. It is not a diagnostic procedure and should not be used as the sole means of detecting cervical cancer. Both false-positive and false-negative reports do occur. . Performed at: WB Performed By: #### [id number] #### [facility] [address] [place] [address] Dr. Babar Marks Performed by: Comment Normal [facility] Comment on above: Result Comment: Marry Billy, Supervisor Filling And Packing (ASCP) Performed at: WB Performed By: #### [id number] #### [facility] [address] [place] [address] Dr. Babar Marks Specimen adequacy: Comment Normal [facility] Comment on above: Result Comment: Sati sfactory for evaluation. Endocervical and/or squamous metaplastic cells (endocervical component) are present. Performed at: WB Performed By: #### [id number] #### [facility] [address] [place] [address] Dr. Babar Marks CHLAMYDIA/GONOCOCCUS JESS (SW AB/URINE/PAPon 03-14-2022 Chlamydia trachomatis, JESS Negative Normal Negative [facility] Comment on above: Performed By: #### C T/NGNA #### [facility] [address] [place] [address] Dr. Babar Marks Neisseria gonorrhoeae, JESS Negative Normal Negative [facility] Comment on above: Performed By: #### C T/NGNA #### [facility] [address] [place] [address] Dr. Babar Marks VAGINITIS/VAGINOSIS DNA PROB Tam 03-14-2022 Jen species Negative Normal Negative [facility] Comment on above: Performed By: #### V AGINT #### [facility] [address] [place] [address] Dr. Babar Marks Gardnerella vaginalis Negative Normal Negative [facility] Comment on above: Performed By: #### V AGINT #### [facility] [address] [place] [address] Dr. Babra Marks Trichomonas vaginalis Negative Normal Negative [facility] Comment on above: Performed By: #### V AGINT #### [facility] [address] [place] [address] Dr. Babar Marks XR CHEST 2 Von 11-23-2021 XR CHEST 2 V EXAM: XR CHEST 2 V COMPARISON: 02/06/2017 CLINICAL INDICATION: Cough. FINDINGS: The cardiomediastinal silhouette is within normal limits. No focal consolidation. No pleural effusion. No pneumothorax. IMPRESSION: No radiographic evidence of acute cardiopulmonary abnormality. Electronically authenticated by: DANIELA FAITHZ Date: 2021-11-23 17:05 Normal [facility] Discharge Summaryon 02-08-20 17 HIM IP Note OR Animator Normal [facility] Drug Scr, Abuse, Uron 2016 Amphetamine(s),Ur Negative Normal NEG [facility] Comment on above: Result Comment: (Pos itive cutoff 1000 ng/mL) Performed By: #### U AMIC, MARLEEN ####[employer] [place] [address] Barbiturate(s),Ur Negative Normal NEG [facility] Comment on above: Result Comment: (Pos itive cutoff 200 ng/mL) Performed By: #### U AMIC, MARLEEN ####[employer] [place] [address] Base excess Negative Normal NEG [facility] Comment on above: Result Comment: (Pos itive cutoff 300 ng/mL) Performed By: #### U AMIC, MARLEEN ####[address] [place] [address] Benzodiazepine(s) Negative Normal NEG [facility] Comment on above: Result Comment: (Pos itive cutoff 200 ng/mL) Performed By: #### U AMIC, MARLEEN ####[employer] [address] [place] [address] Cannabinoid(s),Ur Negative Normal NEG [facility] Comment on above: Result Comment: (Pos itive cutoff 50 ng/mL) Performed By: #### U AMIC, MARLEEN ####[employer] [place] [address] Interpretive Info Assay provides medic al screening only. The absence of expected drug(s) and/or Normal [facility] Comment on above: Result Comment: meta bolite(s) may indicate diluted or adulterated urine, limitations of testing or timing of collection.Testing for legal purposes should be confirmed by another method. To request confirmation of test result, please call the lab within 7 days of sample submission.[address] [address] Performed By: #### U AMIC, MARLEEN ####[address] [address] Opiate(s), Ur Positive Abnormal NEG [facility] Comment on above: Result Comment: (Pos itive cutoff 300 ng/mL) Performed By: #### U AMIC, MARLEEN ####[address] [address] Oxycodone, Urine Negative Normal NEG [facility] Comment on above: Result Comment: (Pos itive cutoff 100 ng/mL) Performed By: #### U AMIC, MARLEEN ####[address] [address] Phencyclidine, Ur Negative Normal NEG [facility] Comment on above: Result Comment: (Pos itive cutoff 25 ng/mL) Performed By: #### U AMIC, MARLEEN ####[address] [address] Urine, methadone presence Negative Normal NEG [facility] Comment on above: Result Comment: (Pos itive cutoff 300 ng/mL) Performed By: #### U AMIC, MARLEEN ####[address] [address] Buprenorphrine, Ur NOT REPORTED Normal NEG [facility] Comment on above: Performed By: #### U AMIC, MARLEEN ####[address] [address] MDMA, Urine NOT REPORTED Normal NEG [facility] Comment on above: Performed By: #### U AMIC, MARLEEN ####[address] [address] Methamphetamine, Ur NOT REPORTED Normal NEG [facility] Comment on above: Performed By: #### U RADHA STODDARDU ####[address] [address] Propoxyphene,Urine NOT REPORTED Normal NEG [facility] Comment on above: Performed By: #### U RADHA STODDARDU ####[address] [address] Urine, tricyclic antidepressants NOT REPORTED Normal NEG [facility] Comment on above: Performed By: #### U RADHA STODDARDU ####[address] [address] ED Noteon 02-07-2017 HIM IP Note OR Animator Normal [facility] HIM IP Note OR Animator Normal [facility] ED Provider Noteon 7 HIM IP Note OR Animator Normal [facility] Ethanol Alcoholon 02-07-2017 Ethanol mg/dL Normal <10 [facility] Comment on above: Performed By: #### A LCB ####[address] [address] Ethanol percent <0.010 Normal [facility] Comment on above: Result Comment: [address] [address] Performed By: #### A LCB ####[address] [address] History and Physicalon 02-07 HIM IP Note OR Animator Normal [facility] UA w reflex C&Son 02-07-2017 Reflex Culture? URINE CULTURE REFLEXED Normal [facility] Comment on above: Performed By: #### P T/INR, PTT ####[facility] [place] [address] Urine, crystals in sediment NONE SEEN Normal NONE SEEN [facility] Comment on above: Performed By: #### P T/INR, PTT ####[address] [place] [address] Urine, bacteria in sediment Negative Normal [facility] Comment on above: Performed By: #### P T/INR, PTT ####[address] [place] [address] Urine, mucus presence in sediment Negative Normal NEGATIVE [facility] Comment on above: Performed By: #### P T/INR, PTT ####[address] [place] [address] Urine, casts in sediment NONE SEEN Normal NONE SEEN [facility] Comment on above: Performed By: #### P T/INR, PTT ####[address] [place] [address] Urine, epithelial cells in sediment Negative Normal NEGATIVE [facility] Comment on above: Performed By: #### P T/INR, PTT ####[address] [place] [address] Erythrocytes (RBC) 0-4/HPF Normal NONE SEEN [facility] Comment on above: Performed By: #### P T/INR, PTT ####[address] [place] [address] WBC (Leukocytes) NONE SEEN Normal NONE SEEN [facility] Comment on above: Performed By: #### P T/INR, PTT ####[address] [place] [address] Urine, leukocyte esterase presence Negative Normal NEGATIVE [facility] Comment on above: Performed By: #### P T/INR, PTT ####[address] [place] [address] Urine, nitrite presence Negative Normal NEGATIVE [facility] Comment on above: Performed By: #### P T/INR, PTT ####[address] [place] [address] Urobilinogen, Dipstick 0.2 Normal 0.2 - 1.0 [facility] Comment on above: Performed By: #### P T/INR, PTT ####[address] [place] [address] Protein, Qual Negative Normal NEGATIVE [facility] Comment on above: Performed By: #### P T/INR, PTT ####[address] [place] [address] Urine, pH 7.0 [pH] Normal 5.0 - 9.0 [facility] Comment on above: Performed By: #### P T/INR, PTT ####[address] [place] [address] Blood, Dipstick TRACE Abnormal NEGATIVE [facility] Comment on above: Performed By: #### P T/INR, PTT ####[address] [place] [address] Urine, specific gravity 1.015 Normal 1.005 - 1.030 [facility] Comment on above: Performed By: #### P T/INR, PTT ####[address] [place] [address] Ketone, Dipstick Negative Normal NEGATIVE [facility] Comment on above: Performed By: #### P T/INR, PTT ####[address] [place] [address] Bilirubin (direct) Negative Normal NEGATIVE [facility] Comment on above: Performed By: #### P T/INR, PTT ####[address] [place] [address] Glucose mass conc Negative Normal NEGATIVE [facility] Comment on above: Performed By: #### P T/INR, PTT ####[address] [place] [address] Urine, character CLEAR Normal CLEAR [facility] Comment on above: Performed By: #### P T/INR, PTT ####[address] [place] [address] Urine, color YELLOW Normal [facility] Comment on above: Performed By: #### P T/INR, PTT ####[address] [place] [address] Urinalysis w/ Microon 2016 ----- Normal [facility] Comment on above: Performed By: #### U AMIC, MARLEEN ####[address] [place] [address] Acetaminophen mass conc Negative Normal NEG [facility] Comment on above: Performed By: #### U AMIC, MARLEEN ####[facility] [place] [address] Bilirubin (direct) Negative Normal NEG [facility] Comment on above: Performed By: #### U AMIC, MARLEEN ####[facility] [address] [place] [address] Hemoglobin mass conc (Bld) LARGE Abnormal NEG [facility] Comment on above: Performed By: #### U AMIC, MARLEEN ####[facility] [address] [place] [address] Nitrite,Ur Negative Normal NEG [facility] Comment on above: Performed By: #### U AMIC, MARLEEN ####[facility] [address] [place] [address] Turbidity CLEAR Normal CLEAR [facility] Comment on above: Performed By: #### U AMIC, MARLEEN ####[facility] [address] [place] [address] Urine WBC's 0 TO 2 Normal 0-5 [facility] Comment on above: Performed By: #### U AMIC, MARLEEN ####[facility] [address] [place] [address] Urine, casts in sediment 0 TO 2 HYALINE Normal 0-8 [facility] Comment on above: Result Comment: Refe rence range defined for non-centrifuged specimen. Performed By: #### U AMIC, MARLEEN ####[address] [address] Urine, color YELLOW Normal YEL [facility] Comment on above: Performed By: #### U AMIC, MARLEEN ####[address] [address] Urine, epithelial cells in sediment 0 TO 2 Normal 0-5 [facility] Comment on above: Result Comment: [address] [place] [address] Performed By: #### U AMIC, MARLEEN ####[facility] [address] [place] [address] Urine, erythrocytes 2 TO 5 Normal 0-4 [facility] Comment on above: Result Comment: Refe rence range defined for non-centrifuged specimen. Performed By: #### U AMIC, MARLEEN ####[address] [address] Urine, glucose presence Negative Normal NEG [facility] Comment on above: Performed By: #### U AMIC, MARLEEN ####[facility] [address] [place] [address] Urine, leukocyte esterase presence Negative Normal NEG [facility] Comment on above: Performed By: #### U RADHA STODDARDU ####[address] [place] [address] Urine, pH 6.0 [pH] Normal 5.0-8.0 [facility] Comment on above: Performed By: #### U RICHI MARLEEN ####[address] [address] Urine, protein presence Negative Normal NEG [facility] Comment on above: Performed By: #### U RADHA STODDARDU ####[address] [address] Urine, specific gravity 1.013 Normal 1.005-1.030 [facility] Comment on above: Performed By: #### U RADHA STODDARDU ####[address] [address] Urobilinogen,Ur Normal Normal NORM [facility] Comment on above: Performed By: #### U RICHI, MARLEEN ####[address] [address] Epithelial, Renal NOT REPORTED Normal 0 [facility] Comment on above: Performed By: #### U RICHI, MARLEEN ####[address] [address] Mucus Strands NOT REPORTED Normal NONE [facility] Comment on above: Performed By: #### U AMIC, MARLEEN ####[address] [address] Other Observations NOT REPORTED Normal NREQ [facility] Comment on above: Performed By: #### U THEODOREC MARLEEN ####[address] [address] Trichomonas NOT REPORTED Normal NONE [facility] Comment on above: Performed By: #### U AMIC, MARLEEN ####[facility] [address] [place] [address] Urine, amorphous sediment presence in sediment NOT REPORTED Normal NONE [facility] Comment on above: Performed By: #### U AMIC, MARLEEN ####[facility] [address] [place] [address] Urine, bacteria in sediment NOT REPORTED Normal NONE [facility] Comment on above: Performed By: #### U AMIC, MARLEEN ####[facility] [address] [place] [address] Urine, crystals in sediment NOT REPORTED Normal NONE [facility] Comment on above: Performed By: #### U AMIC, MARLEEN ####[facility] [address] [place] [address] Urine, yeast presence in sediment NOT REPORTED Normal NONE [facility] Comment on above: Performed By: #### U AMIC, MARLEEN ####[facility] [address] [place] [address] XR CHEST PA OR AP (1 VIEW)on [...] injury.Report electronically signed by: Dr. Chilo Fernandez [facility] XR SHOULDER RTon 02-07-2017 XR SHOULDER RT [...] injury.Report electronically signed by: Dr. Chilo Brush [facility] APTTon 02-06-2017 aPTT 29.1 s Normal 23.0 - 37.0 [facility] Comment on above: Performed By: #### P T/INR, PTT ####[facility] [place] [address] Basic Metabolic Panelon 01-23 eGFR (non-black) 108.[address] [facility] Comment on above: Result Comment: eGFR Interpretation:Normal: Equal to or greater than 60 mL/min/1.73 meters squaredChronic Kidney Disease: Less than 60 mL/min/1.73 meters squaredKidney Failure: Less than 15 mL/min/1.73 meters squared Performed By: #### B MP, LIVER PROFILE ####[address] [place] [address] eGFR (non-black) 114.[address] [facility] Comment on above: Result Comment: eGFR Interpretation:Normal: Equal to or greater than 60 mL/min/1.73 meters squaredChronic Kidney Disease: Less than 60 mL/min/1.73 meters squaredKidney Failure: Less than 15 mL/min/1.73 meters squared Performed By: #### B MP, LIVER PROFILE ####[address] [place], [place] [phone](051) eGFR (non-black) 108.[address] [facility] Comment on above: Result Comment: eGFR Interpretation:Normal: Equal to or greater than 60 mL/min/1.73 meters squaredChronic Kidney Disease: Less than 60 mL/min/1.73 meters squaredKidney Failure: Less than 15 mL/min/1.73 meters squared Performed By: #### B MP, LIVER PROFILE ####[address] [place] [address] eGFR (non-black) 81.[address] [facility] Comment on above: Result Comment: eGFR Interpretation:Normal: Equal to or greater than 60 mL/min/1.73 meters squaredChronic Kidney Disease: Less than 60 mL/min/1.73 meters squaredKidney Failure: Less than 15 mL/min/1.73 meters squared Performed By: #### B MP, LIVER PROFILE ####[address] [place] [address] eGFR (non-black) 125.[address] [facility] Comment on above: Performed By: #### B MP, LIVER PROFILE ####[address] [place] [address] eGFR (non-black) 132.[address] [facility] Comment on above: Performed By: #### B MP, LIVER PROFILE ####[address] [place] [address] eGFR (non-black) 124.[address] [facility] Comment on above: Performed By: #### B MP, LIVER PROFILE ####[address] [place] [address] eGFR (non-black) 94.[address] [facility] Comment on above: Performed By: #### B MP, LIVER PROFILE ####[address] [place] [address] Age 26 year(s) Normal [facility] Comment on above: Performed By: #### B MP, LIVER PROFILE ####[address] [place] [address] Calcium 10.1 mg/dL Normal 8.4 - 10.2 [facility] Comment on above: Performed By: #### B MP, LIVER PROFILE ####[address] [place] [address] Chloride 103 mmol/L Normal 98 - 107 [facility] Comment on above: Performed By: #### B MP, LIVER PROFILE ####[address] [place] [address] CO2 25 mmol/L Normal 22 - 32 [facility] Comment on above: Performed By: #### B MP, LIVER PROFILE ####[address] [place] [address] Creatinine 0.96 mg/dL Normal 0.52 - 1.04 [facility] Comment on above: Performed By: #### B MP, LIVER PROFILE ####[address] [place] [address] Glucose mass conc 126 mg/dL High 65 - 100 [facility] Comment on above: Performed By: #### B MP, LIVER PROFILE ####[address] [address] [place] [address] Potassium molar conc 3.9 mmol/L Normal 3.6 - 5.0 [facility] Comment on above: Performed By: #### B MP, LIVER PROFILE ####[place] [address] [place] [address] Sodium 139 mmol/L Normal 135 - 145 [facility] Comment on above: Performed By: #### B MP, LIVER PROFILE ####[address] [address] [place] [address] Urea nitrogen 20 mg/dL High 7 - 17 [facility] Comment on above: Performed By: #### B MP, LIVER PROFILE ####[address] [address] [place] [address] CBC W Auto Differentialon Abs Neut # 9.0 10 X 3/mm High 1.8 - 7.7 [facility] Comment on above: Performed By: #### C BC Auto Diff ####[place] [address] [place] [address] Basophils/100 WBC Auto (Bld) 1 % High 0 - 1 [facility] Comment on above: Performed By: #### C BC Auto Diff ####[place] [address] [place] [address] Eosinophils 0.1 10 X 3/mm Normal 0.0 - 0.5 [facility] Comment on above: Performed By: #### C BC Auto Diff ####[address] [address] [place] [address] Eosinophils/100 leukocytes 1 % Normal 0 - 5 [facility] Comment on above: Performed By: #### C BC Auto Diff ####[place] [address] [place] [address] Erythrocyte distribution width Auto Ratio (RBC) 15.1 % High 11.5 - 14.5 [facility] Comment on above: Performed By: #### C BC Auto Diff ####[address] [address] [place] [address] Erythrocytes (RBC) 4.28 10 X 6/mm Normal 4.20 - 5.40 [facility] Comment on above: Performed By: #### C BC Auto Diff ####[address] [address] [place] [address] Hematocrit (HCT) 36.3 % Normal 36.0 - 47.0 [facility] Comment on above: Performed By: #### C BC Auto Diff ####[address] [address] [place] [address] Hemoglobin mass conc (Bld) 12.4 g/dL Normal 12.0 - 16.0 [facility] Comment on above: Performed By: #### C BC Auto Diff ####[place] [address] [place] [address] Lymphocytes 2.3 10 X 3/mm Normal 1.0 - 4.0 [facility] Comment on above: Performed By: #### C BC Auto Diff ####[place] [address] [place] [address] Lymphocytes/100 leukocytes 19 % Low 20 - 40 [facility] Comment on above: Performed By: #### C BC Auto Diff ####[place] [address] [place] [address] MCH 29.0 pg Normal 27.0 - 35.0 [facility] Comment on above: Performed By: #### C BC Auto Diff ####[place] [address] [place] [address] MCHC mass conc (RBC) 34.2 g/dL Normal 32.0 - 36.0 [facility] Comment on above: Performed By: #### C BC Auto Diff ####[address] [address] [place] [address] MCV 84.9 fL Normal 80.0 - 100.0 [facility] Comment on above: Performed By: #### C BC Auto Diff ####[place] [address] [place] [address] Monocytes/100 leukocytes 6 % Normal 1 - 15 [facility] Comment on above: Performed By: #### C BC Auto Diff ####[place] [address] [place] [address] Neutrophils/100 WBC Auto (Bld) 74 % High 50 - 70 [facility] Comment on above: Performed By: #### C BC Auto Diff ####[place] [address] [place] [address] Platelet mean volume (PMV) 8.0 fL Normal 7.5 - 11.5 [facility] Comment on above: Performed By: #### C BC Auto Diff ####[place] [address] [place] [address] Platelets 454 uLx10 High 150 - 450 [facility] Comment on above: Performed By: #### C BC Auto Diff ####[place] [address] [place] [address] WBC (Leukocytes) 12.2 10 X 3/mm High 3.7 - 11.0 [facility] Comment on above: Performed By: #### C BC Auto Diff ####[facility] [place] [address] CT BRAIN WOon 02-06-2017 Thyroid stimulating hormone [...] effectReport electronically signed by: Dr. Zaire Babcock [facility] CT CERVICAL SPINE WOon 02-06 CT CERVICAL [...] indicated.Report electronically signed by: Dr. Mahamed King [facility] CT SINUS/FACIAL WOon 017 CT SINUS/FACIAL WO [...] electronically signed by: Dr. Hal Ayoub Normal [facility] Hepatic Function Panelon Alanine aminotransferase (ALT) 30 U/L Normal 7 - 52 [facility] Comment on above: Performed By: #### B MP, LIVER PROFILE ####[address] [address] [place] [address] Albumin 3.8 g/dL Normal 3.5 - 5.0 [facility] Comment on above: Performed By: #### B YESENIA, LIVER PROFILE ####[address] [address] [place] [address] Alkaline phosphatase (ALP) 63 U/L Normal 38 - 126 [facility] Comment on above: Performed By: #### B MP, LIVER PROFILE ####[place] [address] [place] [address] Aspartate aminotransferase (AST) 22 U/L Normal 14 - 36 [facility] Comment on above: Performed By: #### B YESENIA, LIVER PROFILE ####[place] [address] [place] [address] Bilirubin (direct) 0.0 mg/dL Normal 0.0 - 0.2 [facility] Comment on above: Performed By: #### B MP, LIVER PROFILE ####[place] [address] [place] [address] Bilirubin (total) 0.8 mg/dL Normal 0.2 - 1.3 [facility] Comment on above: Performed By: #### B MP, LIVER PROFILE ####[place] [address] [place] [address] Protein 6.9 g/dL Normal 6.3 - 8.2 [facility] Comment on above: Performed By: #### B MP, LIVER PROFILE ####[place] [address] [place] [address] PT/INRon 02-06-2017 INR Coag RelTime (Bld) See Comments Normal [facility] Comment on above: Result Comment: [place] [...] 2.5-3.5 Performed By: #### P T/INR, PTT ####[place] [address] [place] [address] INR Coag RelTime (PPP) 0.94 Normal 0.90 - 1.10 [facility] Comment on above: Performed By: #### P T/INR, PTT ####[place] [address] [place] [address] Prothrombin time (PT) Coag time (PPP) 12.[address] [facility] Comment on above: Performed By: #### P T/INR, PTT ####[place] [address] [place] [address] Troponin I, Extra Sensitiveo n 02-06-2017 Troponin I.cardiac mass conc ng/mL Normal 0.000 - 0.034 [facility] Comment on above: Result Comment: Limi t of Detection: <0.012 ng/mLAt Risk of Myocardial Damage: 0.012-0.034 ng/mLProbable Myocardial Damage: >0.034 ng/mL Performed By: #### T ROPONIN I ####[place] [address] [place] [place] [address] hCG, Qualitative-Serumon Internal Control ACCEPTABLE Normal [facility] Comment on above: Performed By: #### H CG,QUAL SERUM ####[address] [place] [address] hCG, Qualitative-Serum Negative Normal NEGATIVE [facility] Comment on above: Performed By: #### H CG,QUAL SERUM ####[address] [place] [address] Vital Signs Date Time Vital Sign Value Performing Clinician Facility 09-08-2024 15:52-0500 Body height 165.1 cm [facility] 09-08-2024 15:52-0500 Body mass index (BMI) [Ratio] 58.6 kg/m2 [facility] 09-08-2024 15:52-0500 Body temperature 98.9 [degF] [facility] 09-08-2024 15:52-0500 Body weight 160 kg [facility] 09-08-2024 15:52-0500 Diastolic blood pressure 78 mm[Hg] [facility] 09-08-2024 15:52-0500 Heart rate 105 /min [facility] 09-08-2024 15:52-0500 Respiratory rate 18 /min [facility] 09-08-2024 15:52-0500 SaO2% (BldA) [Mass fraction] 97 % [facility] 09-08-2024 15:52-0500 Systolic blood pressure 120 mm[Hg] [facility] 08-21-2024 13:18-0500 Body mass index (BMI) [Ratio] 31.12 kg/m2 Kermit Elayne DO Work Phone: [facility] 08-21-2024 13:18-0500 Body weight 84.82 kg Kermit Elayne DO Work Phone: [facility] 08-21-2024 13:18-0500 Diastolic blood pressure 70 mm[Hg] Kermit Elayne DO Work Phone: [facility] 08-21-2024 13:18-0500 Systolic blood pressure 120 mm[Hg] Kermit Elayne DO Work Phone: [facility] 07-21-2024 11:10-0500 Body mass index (BMI) [Ratio] 29.45 kg/m2 [facility] 07-21-2024 11:10-0500 Body weight 80.29 kg [facility] Nurse [facility] 07-21-2024 11:10-0500 Diastolic blood pressure 76 mm[Hg] [facility] Nurse [facility] 07-21-2024 11:10-0500 Systolic blood pressure 124 mm[Hg] [facility] Nurse [facility] 06-08-2024 10:32-0500 Body height 165.1 cm [facility] 06-08-2024 10:32-0500 Body mass index (BMI) [Ratio] 29.1 kg/m2 [facility] 06-08-2024 10:32-0500 Body temperature 97.5 [degF] [facility] 06-08-2024 10:32-0500 Body weight 79.37 kg [facility] 06-08-2024 10:32-0500 Diastolic blood pressure 89 mm[Hg] [facility] 06-08-2024 10:32-0500 Heart rate 93 /min [facility] 06-08-2024 10:32-0500 Respiratory rate 18 /min [facility] 06-08-2024 10:32-0500 SaO2% (BldA) [Mass fraction] 98 % [facility] 06-08-2024 10:32-0500 Systolic blood pressure 130 mm[Hg] [facility] 04-21-2024 13:40-0400 Body height 165.1 cm [facility] 04-21-2024 13:40-0400 Body mass index (BMI) [Ratio] 28.1 kg/m2 [facility] 04-21-2024 13:40-0400 Body temperature 99.4 [degF] [facility] 04-21-2024 13:40-0400 Body weight 76.82 kg [facility] 04-21-2024 13:40-0400 Diastolic blood pressure 84 mm[Hg] [facility] 04-21-2024 13:40-0400 Heart rate 85 /min [facility] 04-21-2024 13:40-0400 Respiratory rate 18 /min [facility] 04-21-2024 13:40-0400 SaO2% (BldA) [Mass fraction] 99 % [facility] 04-21-2024 13:40-0400 Systolic blood pressure 126 mm[Hg] [facility] 12-22-2023 18:07-0400 Body height 165.1 cm [facility] 12-22-2023 18:07-0400 Body mass index (BMI) [Ratio] 27.8 kg/m2 [facility] 12-22-2023 18:07-0400 Body temperature 98.7 [degF] [facility] 12-22-2023 18:07-0400 Body weight 75.74 kg [facility] 12-22-2023 18:07-0400 Heart rate 84 /min [facility] 12-22-2023 18:07-0400 Respiratory rate 18 /min [facility] 12-22-2023 18:07-0400 SaO2% (BldA) [Mass fraction] 99 % [facility] Encounters Encounter Date Encounter Type Care Provider Facility Start: 09-08-2024 End: 09-08-2024 ambulatory [facility] Work Phone: Start: 09-08-2024 End: 09-08-2024 Patient encounter procedure [facility] Physician [facility] Loc Work Phone: Start: 09-06-2024 End: 09-08-2024 Clinisync Result Encounter Kermit Elayne DO Work Phone: [facility] Unsolicited Start: 09-06-2024 End: 09-08-2024 Clinisync Result Encounter Kermit Elayne DO Work Phone: [facility] Unsolicited Start: 08-21-2024 End: 08-21-2024 Bamboo flowsheet Kermit [...] GA: 10w0d Start: 06-08-2024 End: 06-08-2024 ambulatory [facility] Work Phone: Start: 06-08-2024 End: 06-08-2024 Patient encounter procedure [facility] Physician [facility] Ur[facility] Loc Work Phone: Start: 04-21-2024 End: 04-21-2024 ambulatory [facility] Work Phone: Start: 04-21-2024 End: 04-21-2024 Patient encounter procedure [facility] Ur[facility] Loc Work Phone: Start: 12-22-2023 End: 12-22-2023 ambulatory [facility] Work Phone: Start: 12-22-2023 End: 12-22-2023 Patient encounter procedure [facility] Physician [facility] Ur[facility] Loc Work Phone: Start: 12-01-2022 ambulatory Facility:[facility] Start: 08-24-2022 End: 08-25-[address] MECHE LE Facility:[facility] Start: 08-19-2022 End: 08-19-[address] KERMIT HOLLY Facility:[facility] Start: 07-30-2022 End: 07-30-2022 ambulatory LEANDRO VERDUZCO Facility:[facility] Start: 03-11-2022 End: 03-11-[address] KERMIT HOLLY Facility:[facility] Start: 11-23-2021 End: 11-23-2021 ambulatory LEANDRO VERDUZCO Facility:[facility] Start: 02-07-2017 End: 02-07-2017 Ambulatory [facility] Start: 02-06-2017 End: 02-07-2017 Emergency department patient visit IBRAHIMA WARE Facility:[facility] Procedures Date Procedure Procedure Detail Performing Clinician Start: 09-06-2024 AFP, SERUM, OPEN SPI NA BIFIDA Kermit Elayne DO Work Phone: Start: 08-21-2024 Urnls dip stick/tabl et rgnt [...] PM EST Routine [facility] [address] [place] [id number] Loraine Payne PA [address] [place] [address] [facility] Start: 08-21-2024 End: 09-21-2024 Alpha fetoprotein, maternal Alpha fetoprotein, maternal Lab Routine 14 weeks gestation of Second trimester Expected: 08/21/2024 (Approximate), Expires: 09/21/2024 [facility] Work Phone: Comment on above: Expected: 08/21/2024 (Approximate), Expires: 09/21/2024 Start: 08-21-2024 End: 08-21-2024 Patient encounter procedure [facility] Comment on above: Arrived Start: 07-21-2024 End: 07-21-2025 ABO/Rh ABO/Rh Lab Routine Missed menses , unspecified gestational age Expected: 07/21/2024 (Approximate), Expires: 07/21/2025 [facility] Comment on above: Expected: 07/21/2024 (Approximate), Expires: 07/21/2025 Start: 07-21-2024 End: 07-21-2025 Blood type and Indirect antibody screen panel - Blood Type and screen Lab Routine Missed menses , unspecified gestational age Expected: 07/21/2024 (Approximate), Expires: 07/21/2025 [facility] Work Phone: Comment on above: Expected: 07/21/2024 (Approximate), Expires: 07/21/2025 Start: 07-21-2024 End: 07-21-2025 Drugs of abuse panel - Urine by Screen method Rapid drug screen, urine Lab Routine , unspecified gestational age Encounter for supervision of normal first in first trimester Expected: 07/21/2024 (Approximate), Expires: 07/21/2025 [facility] Comment on above: Expected: 07/21/2024 (Approximate), Expires: 07/21/2025 Start: 07-21-2024 End: 07-21-2025 US Pelvis transvaginal US OB transvaginal Imaging Routine Missed menses Expected: 07/21/2024 (Approximate), Expires: 07/21/2025 [facility] Comment on above: Expected: 07/21/2024 (Approximate), Expires: 07/21/2025 Bacteria identified in Urine by Culture Urine culture Microbiology Routine Missed menses Ordered: 07/21/2024 [facility] Comment on above: Ordered: 07/21/2024 CBC W Auto Different ial panel - Blood CBC and differential Lab Routine Missed menses , unspecified gestational age Ordered: 07/21/2024 [facility] Comment on above: Ordered: 07/21/2024 Hemoglobin A1c/Hemoglobin.total in Blood Hemoglobin A1c Lab Routine Missed menses , unspecified gestational age Ordered: 07/21/2024 [facility] Comment on above: Ordered: 07/21/2024 Hepatitis B virus surface Ag [Presence] in Serum or Plasma by Immunoassay Hepatitis B surface antigen Lab Routine Missed menses , unspecified gestational age Ordered: 07/21/2024 [facility] Comment on above: Ordered: 07/21/2024 Hepatitis C virus Ab [Presence] in Serum or Plasma by Immunoassay Hepatitis C antibody Lab Routine Missed menses , unspecified gestational age Ordered: 07/21/2024 [facility] Comment on above: Ordered: 07/21/2024 HIV-1/HIV-2 antigen/antibody combination immunoassay HIV-1 and HIV-2 antibodies Lab Routine Missed menses , unspecified gestational age Ordered: 07/21/2024 [facility] Comment on above: Ordered: 07/21/2024 Reagin Ab [Presence] in Serum by RPR RPR Lab Routine Missed menses , unspecified gestational age Ordered: 07/21/2024 [facility] Comment on above: Ordered: 07/21/2024 Rubella antibody, IgG Rubella an tibody, IgG Lab Routine Missed menses , unspecified gestational age Ordered: 07/21/2024 [facility] Comment on above: Ordered: 07/21/2024 Payers Date Payer Category Payer Medicaid [employer] [place] [id number] 2022 Medicaid [id number] 2019 Unknown [id number] 2017 Unknown 2014 Unknown [id number] 1990 Unknown [id number] 1990 Unknown [id number] 1990 Unknown [id number] 1990 Unknown [id number] 1990 Unknown [id number] 1990 Unknown [id number] 1990 Unknown [id number] 1990 Unknown [id number] 1959 Unknown [id number] Unknown [facility] [id number] Social History Date Type Detail Facility Start: 08-11-2023 End: 09-08-2024 Tobacco smoking status HIIS Never smoked tobacco (finding) [facility] Start: 1990 Sex Assigned At Female F [facility] Start: 06-08-2024 End: 09-08-2024 Sex Female (finding) [facility] Start: 03-31-2023 Tobacco use and [...] History of Present illness Narrative 08-21-2024 Roxana AvinaCARA jarquin - 08/21/2024 1:10 PM EST Note Date [...] or undercooked meat, and stay away from [facility]. Patient has been consulted regarding any further [...] or undercooked meat, and stay away from [facility]. Patient has also been advised to not [...] Keiko Bruce MA documented in this encounter [facility] Evaluation note 04-21-2024 Note Date & Type Note Facility 04-21-2024 Evaluation note Diagnosis Onset Date Resolution Acute right otitis media acute April 21, 2024 1:26pm Viral URI acute June 08, 2024 9:51am [facility] Work Phone: Evaluation note Note Date & Type Note Facility Evaluation note Diagnosis Onset Date Strep throat acute [facility] Work Phone: Evaluation note Note Date & Type Note Facility Evaluation note Diagnosis Onset Date Acute right otitis media acu te [facility] Work Phone: Evaluation note Note Date & Type Note Facility Evaluation note Diagnosis Missed menses , unspecified gestational age Encounter for supervision of normal first in first trimester documented in this encounter [facility] Evaluation note Note Date & Type Note Facility Evaluation note Diagnosis 14 weeks gestation of Second trimester state, incidental Tinea pedis, unspecified laterality History of pre-eclampsia History of anemia Personal history of diseases of blood and blood-forming organs documented in this encounter [facility] Evaluation note Note Date & Type Note Facility Evaluation note Diagnosis Onset Date Resolution Viral URI with cough acute Febr uary 2024 3:37pm [facility] Work Phone: Summary Purpose Family History Relationship Condition Age at Onset Recorded Date/T jeri father Heart disease Unknown mother High blood cholesterol Unknown Advance Directives Advance Directive Response Recorded Date/ Time Advance Directives No December 21 5:59pm Advance Directive Response Recorded Date/ Time Advance Directives No December 21 4:59pm Advance Directive Response Recorded Date/ Time Advance Directives No August 3:33pm Chief Complaint and Reason for Visit Chief Complaint Sore throat Reason for Visit Strep throat Chief Complaint Sore throat Reason for Visit Acute right otitis m edia Chief Complaint Admit Date Sore throat April 21, 2024 1:26pm sore, swollen throat, fatigue May 262023 9:51am Reason for Visit Admit Date Acute right otitis media April 21, 2024 1:26pm Viral URI June 08, 2024 9:51am Chief Complaint Admit Date fever, chills, body ache, drainage Febru cora 2024 3:37pm Reason for Visit Admit Date Viral URI with cough September 08, 2024 3:37pm Additional Source Comments INFORMATION SOURCE (unrecogn ized section and content) DATE CREATED AUTHOR 01/19/2018 [facility] DATE CREATED AUTHOR AUTHOR'S ORGANIZ ATION 01/19/[address] [facility] DATE CREATED AUTHOR AUTHOR'S ORGANIZ ATION 08/26/2022 [facility] DATE CREATED AUTHOR AUTHOR'S ORGANIZ ATION 12/02/2022 Ruperto Brown [facility] DATE CREATED AUTHOR AUTHOR'S ORGANIZ ATION 08/22/2024 [facility] EPIC Care Teams (unrecognized sec tion [...] Cerda NP-C Primary Care Provider Active Start: April 21, 2024 End: April 21, 2024 Ketty Jones APRN Attending Provider Active S tart: April 21, 2024 End: April 21, 2024 Team Status: Inactive Member Role Status Dates Violet Cerda NP-C Primary Care Provider Active Start: June 08, 2024 End: June 08, 2024 Mayte Joiner APRN Attending Provider Active Start: June 08, 2024 End: June 08, 2024 [employer]n [employer] Relationship Specialty Start Date End Date Cuco Munoz MD [address] [place] [id number] PCP - General Family Medicine 06/24/23 [employer]n [employer] Relationship Specialty Start Date End Date Cuco Munoz MD [facility] [place] [address] PCP - General Family Medicine 06/24/23 [employer]n [employer] Relationship Specialty Start Date End Date Cuco Munoz MD [address] [place] [id number] PCP - General Family Medicine 06/24/23 [employer]n [employer] Relationship Specialty Start Date End Date Cuco Munoz MD [address] [id number] PCP - General Family Medicine 06/24/23 Team Status: Inactive Member Role Status Dates Violet Cerda [employer]-C Primary Care Provider Active Start: September 08, 2024 End: September 08, 2024 VI Nevarez Active Start: August End: September 08, 2024 Mayte Joiner APRN Attending Provider Active Start: September 08, 2024 End: September 08, 2024 Goals (unrecognized section and content) [...] BE BASED ON THE PRIMARY CLINICAL RECORDS. [employer] provides no warranty or guarantee of the accuracy or completeness of information in this document.
== END 2024-09-18 21:23 | disposition home or self-care (01) ==
LOC: LAB 21:22
PROVIDERS: Visit Provider Physician Assistant
DX: Z01.419 Encounter for gynecological examination (general) (routine) without abnormal findings (principal)
CPT/HCPCS: 87624; 88175

== ENCOUNTER 2024-10-06 16:59 | Outpatient (OUT) | payer MEDICAID, SELFPAY ==
--- NOTE | 2024-10-06 17:01 | US_ITS ---
[address] [address] Patient Name: ABRAM NELSON MRN: [id number] date: 1990 Sex: F Assigned Patient Location: US Current Patient Location: Accession/Order Number: [id number] Exam Date: 10/06/2024 22:19 Report Date: 10/06/2024 22:21 At the request of: ANTIONETTE HILLMAN Procedure: US OB anatomy Ultrasound assessment of cervical length. The length of the cervix is 5.2 cm. The cervix is closed. US/US OB anatomy IMPRESSION: Cervical length 5.2 cm. Impression dictated by: David Chaudhari M.D.10/06/2024 10:21 PM Dictation Location: [place] [address] Electronically authenticated by: [id number] Y Date: 10/06/2024 22:21
--- NOTE | 2024-10-06 17:02 | US_ITS ---
The [address] [address] Patient Name: ABRAM NELSON MRN: [id number] date: 1990 Sex: F Assigned Patient Location: Current Patient Location: Accession/Order Number: [id number] Exam Date: 10/06/2024 22:11 Report Date: 10/06/2024 22:18 At the request of: ANTIONETTE HILLMAN Procedure: US OB cervical length Obstetrical ultrasound for assessment of anatomy HISTORY: anatomy assessment Fetus in breech presentation.. Variable lie. Amniotic fluid is subjectively normal. Placenta is posterior and marginal. Placental grade is 0. Cervical length is 5.2 cm. The cervix is closed. The heart rate is 141 bpm. There is adequate visualization of the lateral ventricles, cerebellum, posterior fossa, nose and lips, orbits, diaphragm, stomach, kidneys, abdominal cord insertion, urinary bladder, umbilical arteries, three-vessel cord, spine and extremities. There is suboptimal assessment of the four-chamber heart and the right and left ventricular outflow tract due to positioning. The estimated weight is 378.9 g which is 34.6%. Estimated date of delivery 02/16/2025 US/US OB cervical length IMPRESSION: Suboptimal assessment of the four-chamber heart in the right and left ventricular outflow tract secondary to positioning. Consider repeat imaging. Remaining anatomy adequately visualized. Marginal placenta. Breech presentation of the fetus with variable lie. Impression dictated by: David Chaudhari M.D.10/06/2024 10:18 PM Dictation Location: [facility] Electronically authenticated by: [id number] Y Date: 10/06/2024 22:18
--- OUTSIDE RECORDS SUMMARY | 2024-10-06 17:03 | XMS_ITS | CCD ---
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 MICRO IND NOT INDICATED Normal [facility] Comment on above: Performed By: #### E RUR #### [facility] [address] [place] [address] Dr. Babar Marks Urobilinogen Qn (U) 0.2 {Courtney'U}/dL Normal 0.2 - 1. 0 [facility] Comment on above: Performed By: #### E RUR #### [facility] [address] [address] [address] Babar Marks LIPASEon 07-30-2022 Lipase [Catalytic activity/Vol] 141.0 U/L Normal 73.0-393.0 [facility] Comment on above: Performed By: #### L IPA, CMP #### [facility] [address] [address] [address] Babar Marks PREG HCG QUALon 07-30-2022 , QUAL Negative Normal NEGATIVE [facility] Comment on above: Performed By: #### C BC #### [facility] [address] [place] [address] Dr. Babar Marks PROF 14(COMP METB)on 023 Albumin [Mass/Vol] 3.3 g/dL Critically low 3.4-5.0 [facility] Comment on above: Performed By: #### C BC #### [facility] [address] [place] [address] Dr. Babar Marks Albumin/Globulin [Mass ratio] 0.8 {ratio} Normal [facility] Comment on above: Performed By: #### C BC #### [facility] [address] [place] [address] Dr. Babar aMrks ALP [Catalytic activity/Vol] 44 U/L Critically low 46-116 [facility] Comment on above: Performed By: #### C BC #### [facility] [address] [place] [address] Dr. Babar Marks ALT [Catalytic activity/Vol] 17 U/L Normal 14-59 [facility] Comment on above: Performed By: #### C BC #### [facility] [address] [place] [address] Dr. Babar Marks Anion gap [Moles/Vol] 11.0 mmol/L Normal [facility] Comment on above: Performed By: #### C BC #### [facility] [address] [address] [address] Babar Marks AST [Catalytic activity/Vol] 13 U/L Critically low 15-37 [facility] Comment on above: Performed By: #### C BC #### [facility] [address] [address] [address] Babar Marks Bilirubin [Mass/Vol] 0.3 mg/dL Normal 0.2-1.0 [facility] Comment on above: Performed By: #### C BC #### [facility] [place] [facility] [address] [address] [address] Babar Marks Calcium [Mass/Vol] 8.6 mg/dL Normal 8.5-10.1 [facility] Comment on above: Performed By: #### C BC #### [facility] [address] [address] [address] Babar Marks Chloride [Moles/Vol] 107 mmol/L Normal 98-107 [facility] Comment on above: Performed By: #### C BC #### [facility] [place] [facility] [address] [address] [address] Babar Marks CO2 [Moles/Vol] 29.5 mmol/L Normal 21.0-32.0 [facility] Comment on above: Performed By: #### C BC #### [facility] [place] [facility] [address] [address] [address] Babar Marks Creatinine [Mass/Vol] 0.71 mg/dL Normal 0.55-1.02 [facility] Comment on above: Performed By: #### C BC #### [facility] [address] [address] [address] Babar Marks EGFR-AF LIBERIAN >60 Normal >=60 [facility] Comment on above: Performed By: #### C BC #### [facility] [address] [address] [address] Babar Marks EGFR-NON AF LIBERIAN >60 Normal >=60 [facility] Comment on above: Performed By: #### C BC #### [facility] [place] [facility] [address] [address] [address] Babar Marks Globulin (S) [Mass/Vol] 4.0 g/dL Normal [facility] Comment on above: Performed By: #### C BC #### [facility] [place] [facility] [address] [address] [address] Babar Marks Glucose [Mass/Vol] 81 mg/dL Normal 74-106 [facility] Comment on above: Performed By: #### C BC #### [facility] [place] [facility] [address] [address] [address] Babar Marks Potassium [Moles/Vol] 3.5 mmol/L Normal 3.5-5.1 [facility] Comment on above: Performed By: #### C BC #### [facility] [place] [facility] [address] [place] [address] Dr. Babar Marks Protein [Mass/Vol] 7.3 g/dL Normal 6.4-8.2 [facility] Comment on above: Performed By: #### C BC #### [facility] [place] [facility] [address] [place] [address] Dr. Babar Marks Sodium [Moles/Vol] 144 mmol/L Normal 136-145 [facility] Comment on above: Performed By: #### C BC #### [facility] [place] [facility] [address] [place] [address] Dr. Babar Marks Urea nitrogen [Mass/Vol] 14.0 mg/dL Normal 7.0-18.0 [facility] Comment on above: Performed By: #### C BC #### [facility] [place] [facility] [address] [place] [address] Dr. Babar Marks Urea nitrogen/Creatinine [Mass ratio] 19.7 mg/mg Normal [facility] Comment on above: Performed By: #### C BC #### [facility] [place] [facility] [address] [place] [address] Dr. Babar Marks XR ABD FLAT UP_PA Cynthia 07-30 XR ABD FLAT UP_PA EXAM: XR ABD FLAT U P_PA CH [...] by: YESENIA ARRIOLA Date: 2022-07-30 18:11 Normal [facility] PAP ACOG PANEL 2: 30 to 65on 03-18-2022 . . Normal [facility] Comment on above: Result Comment: Perf ormed at: WB Performed By: #### [id number] #### [facility] [place] [facility] [address] [address] [address] Babar Marks Age Gdln ACOG Testing 30-65 Normal [facility] Comment on above: Performed By: #### [id number] #### [facility] [place] [facility] [address] [address] [address] Babar Marks DIAGNOSIS: Comment Normal [facility] Comment on above: Result Comment: NEGA TIVE FOR INTRAEPITHELIAL LESION OR MALIGNANCY. Performed at: WB Performed By: #### [id number] #### [facility] [place] [facility] [address] [address] [address] Babar Marks HPV Aptima Positive Abnormal Negative [facility] Comment on above: Result Comment: This nucleic acid amplification test detects fourteen high-risk HPV types (16,18,31,33,35,39,45,51,52,56,58,59,66,68) without differentiation. Performed at: =G Performed By: #### [id number] #### [facility] [place] [facility] [address] [address] [address] Babar Marks HPV Genotype 16 Negative Normal Negative [facility] Comment on above: Result Comment: Perf ormed at: =G Performed By: #### [id number] #### [facility] [place] [facility] [address] [address] [address] Babar Marks HPV Genotype 18,45 Negative Normal Negative [facility] Comment on above: Result Comment: Perf ormed at: =G Performed By: #### 4 [id number] #### [facility] [place] [facility] [address] [place] [address] Dr. Babar Marks Methodology: Comment Normal [facility] Comment on above: Result Comment: This liquid based ThinPrep(R) pap test was screened with the use of an image guided system. Performed at: WB Performed By: #### [id number] #### [facility] [place] [facility] [address] [place] [address] Dr. Babar Marks Note: Comment Normal [facility] Comment on above: Result Comment: The Pap smear is a screening test designed to aid in the detection of premalignant and malignant conditions of the uterine cervix. It is not a diagnostic procedure and should not be used as the sole means of detecting cervical cancer. Both false-positive and false-negative reports do occur. . Performed at: WB Performed By: #### [id number] #### [facility] [place] [facility] [address] [place] [address] Dr. Babar Marks Performed by: Comment Normal [facility] Comment on above: Result Comment: Marry Billy, Speeder Hand (ASCP) Performed at: WB Performed By: #### [id number] #### [facility] [place] [facility] [address] [place] [address] Dr. Babar Marks Specimen adequacy: Comment Normal [facility] Comment on above: Result Comment: Sati sfactory for evaluation. Endocervical and/or squamous metaplastic cells (endocervical component) are present. Performed at: WB Performed By: #### [id number] #### [facility] [place] [facility] [address] [place] [address] Dr. Babar Marks CHLAMYDIA/GONOCOCCUS JESS (SW AB/URINE/PAPon 03-14-2022 Chlamydia trachomatis, JESS Negative Normal Negative [facility] Comment on above: Performed By: #### C T/NGNA #### [facility] [place] [facility] [address] [place] [address] Dr. Babar Marks Neisseria gonorrhoeae, JESS Negative Normal Negative [facility] Comment on above: Performed By: #### C T/NGNA #### [facility] [place] [facility] [address] [address] [address] Babar Marks VAGINITIS/VAGINOSIS DNA PROB Tam 03-14-2022 Jen species Negative Normal Negative [facility] Comment on above: Performed By: #### V AGINT #### [facility] [place] [facility] [address] [address] [address] Babar Marks Gardnerella vaginalis Negative Normal Negative [facility] Comment on above: Performed By: #### V AGINT #### [facility] [place] [facility] [address] [address] [address] Babar Marks Trichomonas vaginalis Negative Normal Negative [facility] Comment on above: Performed By: #### V AGINT #### [facility] [place] [facility] [address] [address] [address] Babar Marks XR CHEST 2 Von 11-23-2021 XR CHEST 2 V EXAM: XR CHEST 2 V COMPARISON: 02/06/2017 CLINICAL INDICATION: Cough. FINDINGS: The cardiomediastinal silhouette is within normal limits. No focal consolidation. No pleural effusion. No pneumothorax. IMPRESSION: No radiographic evidence of acute cardiopulmonary abnormality. Electronically authenticated by: DANIELA ZENG Date: 2021-11-23 17:05 Normal [facility] [place] [facility] Discharge Summaryon 02-08-20 17 HIM IP Note OR Snapper On Normal [facility] Drug Scr, Abuse, Uron 2016 Amphetamine(s),Ur Negative Normal NEG [facility] Comment on above: Result Comment: (Pos itive cutoff 1000 ng/mL) Performed By: #### U AMIC, MARLEEN ####[facility] [id number] [place], [place] [id number] Barbiturate(s),Ur Negative Normal NEG [facility] Comment on above: Result Comment: (Pos itive cutoff 200 ng/mL) Performed By: #### U AMIC, MARLEEN ####[facility] [address] [place], [place] [id number] Base excess Negative Normal NEG [facility] Comment on above: Result Comment: (Pos itive cutoff 300 ng/mL) Performed By: #### U AMIC, MARLEEN ####[address] [address] Benzodiazepine(s) Negative Normal NEG [facility] Comment on above: Result Comment: (Pos itive cutoff 200 ng/mL) Performed By: #### U AMIC, MARLEEN ####[address] [address] Cannabinoid(s),Ur Negative Normal NEG [facility] Comment on above: Result Comment: (Pos itive cutoff 50 ng/mL) Performed By: #### U AMIC, MARLEEN ####[address] [address] Interpretive Info Assay provides medic al screening only. The absence of expected drug(s) and/or Normal [facility] Comment on above: Result Comment: meta bolite(s) may indicate diluted or adulterated urine, limitations of testing or timing of collection.Testing for legal purposes should be confirmed by another method. To request confirmation of test result, please call the lab within 7 days of sample submission.[address] [address] Performed By: #### U AMIC, MARLEEN ####[address] [address] Opiate(s), Ur Positive Abnormal NEG [facility] Comment on above: Result Comment: (Pos itive cutoff 300 ng/mL) Performed By: #### U AMIC, MARLEEN ####[address] [address] Oxycodone, Urine Negative Normal NEG [facility] Comment on above: Result Comment: (Pos itive cutoff 100 ng/mL) Performed By: #### U AMIC, MARLEEN ####[id number] [place] [address] Phencyclidine, Ur Negative Normal NEG [facility] Comment on above: Result Comment: (Pos itive cutoff 25 ng/mL) Performed By: #### U AMIC, MARLEEN ####[facility] [address] [place] [address] Urine, methadone presence Negative Normal NEG [facility] Comment on above: Result Comment: (Pos itive cutoff 300 ng/mL) Performed By: #### U AMIC, MARLEEN ####[address] [address] Buprenorphrine, Ur NOT REPORTED Normal NEG [facility] [place] Comment on above: Performed By: #### U AMIC, MARLEEN ####[address] [address] MDMA, Urine NOT REPORTED Normal NEG [facility] Comment on above: Performed By: #### U AMIC, MARLEEN ####[address] [address] Methamphetamine, Ur NOT REPORTED Normal NEG [facility] Comment on above: Performed By: #### U AMIC, MARLEEN ####[address] [address] Propoxyphene,Urine NOT REPORTED Normal NEG [facility] [place] Comment on above: Performed By: #### U AMIC, MARLEEN ####[facility] [id number] [place] [address] Urine, tricyclic antidepressants NOT REPORTED Normal NEG [facility] Comment on above: Performed By: #### U AMIC, MARLEEN ####[address] [address] ED Noteon 02-07-2017 HIM IP Note OR Snapper On Normal [facility] HIM IP Note OR Snapper On Normal [facility] ED Provider Noteon 7 HIM IP Note OR Snapper On Normal [facility] Ethanol Alcoholon 02-07-2017 Ethanol mg/dL Normal <10 [facility] Comment on above: Performed By: #### A LCB ####[facility] [place] [address] Ethanol percent <0.010 Normal [facility] Comment on above: Result Comment: [facility] [address] [address] [place] [address] Performed By: #### A LCB ####[facility] [place] [address] History and Physicalon 02-07 HIM IP Note OR Snapper On Normal [facility] UA w reflex C&Son 02-07-2017 Reflex Culture? URINE CULTURE REFLEXED Normal [facility] Comment on above: Performed By: #### P T/INR, PTT ####[address] [place] [address] Urine, crystals in sediment NONE SEEN Normal NONE SEEN [facility] Comment on above: Performed By: #### P T/INR, PTT ####[address] [place] [address] Urine, bacteria in sediment Negative Normal [facility] Comment on above: Performed By: #### P T/INR, PTT ####[address] [place] [address] Urine, mucus presence in sediment Negative Normal NEGATIVE [facility] Comment on above: Performed By: #### P T/INR, PTT ####[address] [place] [address] Urine, casts in sediment NONE SEEN Normal NONE SEEN [facility] Comment on above: Performed By: #### P T/INR, PTT ####[address] [place] [address] Urine, epithelial cells in sediment Negative Normal NEGATIVE [facility] Comment on above: Performed By: #### P T/INR, PTT ####[address] [place] [address] Erythrocytes (RBC) 0-4/HPF Normal NONE SEEN [facility] Comment on above: Performed By: #### P T/INR, PTT ####[address] [place] [address] WBC (Leukocytes) NONE SEEN Normal NONE SEEN [facility] Comment on above: Performed By: #### P T/INR, PTT ####[address] [place] [address] Urine, leukocyte esterase presence Negative Normal NEGATIVE [facility] Comment on above: Performed By: #### P T/INR, PTT ####[address] [place] [address] Urine, nitrite presence Negative Normal NEGATIVE [facility] Comment on above: Performed By: #### P T/INR, PTT ####[address] [place] [address] Urobilinogen, Dipstick 0.2 Normal 0.2 - 1.0 [facility] Comment on above: Performed By: #### P T/INR, PTT ####[address] [place] [address] Protein, Qual Negative Normal NEGATIVE [facility] Comment on above: Performed By: #### P T/INR, PTT ####[address] [place] [address] Urine, pH 7.0 [pH] Normal 5.0 - 9.0 [facility] Comment on above: Performed By: #### P T/INR, PTT ####[address] [place] [address] Blood, Dipstick TRACE Abnormal NEGATIVE [facility] Comment on above: Performed By: #### P T/INR, PTT ####[address] [place] [address] Urine, specific gravity 1.015 Normal 1.005 - 1.030 [facility] Comment on above: Performed By: #### P T/INR, PTT ####[address] [place] [address] Ketone, Dipstick Negative Normal NEGATIVE [facility] Comment on above: Performed By: #### P T/INR, PTT ####[address] [place] [address] Bilirubin (direct) Negative Normal NEGATIVE [facility] Comment on above: Performed By: #### P T/INR, PTT ####[address] [place] [address] Glucose mass conc Negative Normal NEGATIVE [facility] Comment on above: Performed By: #### P T/INR, PTT ####[address] [place] [address] Urine, character CLEAR Normal CLEAR [facility] Comment on above: Performed By: #### P T/INR, PTT ####[address] [place] [address] Urine, color YELLOW Normal [facility] Comment on above: Performed By: #### P T/INR, PTT ####[address] [place] [address] Urinalysis w/ Microon 07-16- 2017 ----- Normal [facility] Comment on above: Performed By: #### U AMIC, MARLEEN ####[address] [place] [address] Acetaminophen mass conc Negative Normal NEG [facility] Comment on above: Performed By: #### U AMIC, MALREEN ####[facility] [address] [place] [address] Bilirubin (direct) Negative Normal NEG [facility] Comment on above: Performed By: #### U AMIC, MARLEEN ####[address] [address] Hemoglobin mass conc (Bld) LARGE Abnormal NEG [facility] Comment on above: Performed By: #### U AMIC, MARLEEN ####[address] [address] Nitrite,Ur Negative Normal NEG [facility] Comment on above: Performed By: #### U AMIC, MARLEEN ####[address] [address] Turbidity CLEAR Normal CLEAR [facility] Comment on above: Performed By: #### U AMIC, MARLEEN ####[address] [place] [address] Urine WBC's 0 TO 2 Normal 0-5 [facility] Comment on above: Performed By: #### U AMIC, MARLEEN ####[facility] [address] [place] [address] Urine, casts in sediment 0 TO 2 HYALINE Normal 0-8 [facility] Comment on above: Result Comment: Refe rence range defined for non-centrifuged specimen. Performed By: #### U AMIC, MARLEEN ####[address] [place] [address] Urine, color YELLOW Normal YEL [facility] Comment on above: Performed By: #### U AMIC, MARLEEN ####[address] [address] Urine, epithelial cells in sediment 0 TO 2 Normal 0-5 [facility] Comment on above: Result Comment: [address] [address] Performed By: #### U AMIC, MARLEEN ####[address] [address] Urine, erythrocytes 2 TO 5 Normal 0-4 [facility] Comment on above: Result Comment: Refe rence range defined for non-centrifuged specimen. Performed By: #### U AMIC, MARLEEN ####[address] [address] Urine, glucose presence Negative Normal NEG [facility] Comment on above: Performed By: #### U AMIC, MARLEEN ####[facility] [address] [place] [address] Urine, leukocyte esterase presence Negative Normal NEG [facility] Comment on above: Performed By: #### U AMIC, MARLEEN ####[address] [address] Urine, pH 6.0 [pH] Normal 5.0-8.0 [facility] Comment on above: Performed By: #### U AMIC, MARLEEN ####[address] [address] Urine, protein presence Negative Normal NEG [facility] Comment on above: Performed By: #### U AMIC, MARLEEN ####[address] [address] Urine, specific gravity 1.013 Normal 1.005-1.030 [facility] Comment on above: Performed By: #### U AMIC, MARLEEN ####[facility] [address] [place] [address] Urobilinogen,Ur Normal Normal NORM [facility] Comment on above: Performed By: #### U AMIC, MARLEEN ####[facility] [address] [place] [address] Epithelial, Renal NOT REPORTED Normal 0 [facility] Comment on above: Performed By: #### U AMIC, MARLEEN ####[facility] [address] [place] [address] Mucus Strands NOT REPORTED Normal NONE [facility] Comment on above: Performed By: #### U AMIC, MARLEEN ####[facility] [address] [place] [address] Other Observations NOT REPORTED Normal NREQ [facility] [place] Comment on above: Performed By: #### U AMIC, MARLEEN ####[facility] [address] [place] [address] Trichomonas NOT REPORTED Normal NONE [facility] Comment on above: Performed By: #### U AMIC, MARLEEN ####[facility] [place] [address] Urine, amorphous sediment presence in sediment NOT REPORTED Normal NONE [facility] Comment on above: Performed By: #### U AMIC, MARLEEN ####[facility] [address] [place] [address] Urine, bacteria in sediment NOT REPORTED Normal NONE [facility] Comment on above: Performed By: #### U AMIC, MARLEEN ####[facility] [address] [place] [address] Urine, crystals in sediment NOT REPORTED Normal NONE [facility] Comment on above: Performed By: #### U AMIC, MARLEEN ####[address] [place] [address] Urine, yeast presence in sediment NOT REPORTED Normal NONE [facility] Comment on above: Performed By: #### U MARLEEN STODDARD ####[address] [place] [address] XR CHEST PA OR AP (1 VIEW)on [...] injury.Report electronically signed by: Dr. Chilo Fernandez [facility] XR SHOULDER RTon 02-07-2017 XR SHOULDER RT [...] injury.Report electronically signed by: Dr. Chilo Fernandez Normal [facility] APTTon 02-06-2017 aPTT 29.1 s Normal 23.0 - 37.0 [facility] Comment on above: Performed By: #### P T/INR, PTT ####[address] [place] [address] Basic Metabolic Panelon 01-23 eGFR (non-black) 108.65 Normal [facility] Comment on above: Result Comment: eGFR Interpretation:Normal: Equal to or greater than 60 mL/min/1.73 meters squaredChronic Kidney Disease: Less than 60 mL/min/1.73 meters squaredKidney Failure: Less than 15 mL/min/1.73 meters squared Performed By: #### B MP, LIVER PROFILE ####[address] [place] [address] eGFR (non-black) 114.39 Normal [facility] Comment on above: Result Comment: eGFR Interpretation:Normal: Equal to or greater than 60 mL/min/1.73 meters squaredChronic Kidney Disease: Less than 60 mL/min/1.73 meters squaredKidney Failure: Less than 15 mL/min/1.73 meters squared Performed By: #### B MP, LIVER PROFILE ####[address] [place] [address] eGFR (non-black) 108.1 Normal [facility] Comment on above: Result Comment: eGFR Interpretation:Normal: Equal to or greater than 60 mL/min/1.73 meters squaredChronic Kidney Disease: Less than 60 mL/min/1.73 meters squaredKidney Failure: Less than 15 mL/min/1.73 meters squared Performed By: #### B MP, LIVER PROFILE ####[address] [place] [address] eGFR (non-black) 81.88 Normal [facility] Comment on above: Result Comment: eGFR Interpretation:Normal: Equal to or greater than 60 mL/min/1.73 meters squaredChronic Kidney Disease: Less than 60 mL/min/1.73 meters squaredKidney Failure: Less than 15 mL/min/1.73 meters squared Performed By: #### B MP, LIVER PROFILE ####[address] [place] [address] eGFR (non-black) 125.60 [facility] Comment on above: Performed By: #### B MP, LIVER PROFILE ####[address] [place] [address] eGFR (non-black) 132.24 [facility] Comment on above: Performed By: #### B MP, LIVER PROFILE ####[address] [place] [address] eGFR (non-black) 124.64 [facility] Comment on above: Performed By: #### B MP, LIVER PROFILE ####[address] [place] [address] eGFR (non-black) 94.39 [facility] Comment on above: Performed By: #### B MP, LIVER PROFILE ####[address] [place] [address] Age 26 year(s) Normal [facility] Comment on above: Performed By: #### B MP, LIVER PROFILE ####[address] [place] [address] Calcium 10.1 mg/dL Normal 8.4 - 10.2 [facility] Comment on above: Performed By: #### B MP, LIVER PROFILE ####[address] [place] [address] Chloride 103 mmol/L Normal 98 - 107 [facility] Comment on above: Performed By: #### B MP, LIVER PROFILE ####[address] [place] [address] CO2 25 mmol/L Normal 22 - 32 [facility] Comment on above: Performed By: #### B MP, LIVER PROFILE ####[address] [place] [address] Creatinine 0.96 mg/dL Normal 0.52 - 1.04 [facility] Comment on above: Performed By: #### B MP, LIVER PROFILE ####[address] [place] [address] Glucose mass conc 126 mg/dL High 65 - 100 [facility] Comment on above: Performed By: #### B MP, LIVER PROFILE ####[address] [place] [address] Potassium molar conc 3.9 mmol/L Normal 3.6 - 5.0 [facility] Comment on above: Performed By: #### B MP, LIVER PROFILE ####[address] [place] [address] Sodium 139 mmol/L Normal 135 - 145 [facility] Comment on above: Performed By: #### B MP, LIVER PROFILE ####[address] [place] [address] Urea nitrogen 20 mg/dL High 7 - 17 [facility] Comment on above: Performed By: #### B MP, LIVER PROFILE ####[address] [place] [address] CBC W Auto Differentialon Abs Neut # 9.0 10 X 3/mm High 1.8 - 7.7 [facility] Comment on above: Performed By: #### C BC Auto Diff ####[address] [place] [address] Basophils/100 WBC Auto (Bld) 1 % High 0 - 1 [facility] Comment on above: Performed By: #### C BC Auto Diff ####[address] [place] [address] Eosinophils 0.1 10 X 3/mm Normal 0.0 - 0.5 [facility] Comment on above: Performed By: #### C BC Auto Diff ####[address] [place] [address] Eosinophils/100 leukocytes 1 % Normal 0 - 5 [facility] Comment on above: Performed By: #### C BC Auto Diff ####[address] [place] [address] Erythrocyte distribution width Auto Ratio (RBC) 15.1 % High 11.5 - 14.5 [facility] Comment on above: Performed By: #### C BC Auto Diff ####[address] [place] [address] Erythrocytes (RBC) 4.28 10 X 6/mm Normal 4.20 - 5.40 [facility] Comment on above: Performed By: #### C BC Auto Diff ####[address] [place] [address] Hematocrit (HCT) 36.3 % Normal 36.0 - 47.0 [facility] Comment on above: Performed By: #### C BC Auto Diff ####[address] [place] [address] Hemoglobin mass conc (Bld) 12.4 g/dL Normal 12.0 - 16.0 [facility] Comment on above: Performed By: #### C BC Auto Diff ####[address] [place] [address] Lymphocytes 2.3 10 X 3/mm Normal 1.0 - 4.0 [facility] Comment on above: Performed By: #### C BC Auto Diff ####[address] [place] [address] Lymphocytes/100 leukocytes 19 % Low 20 - 40 [facility] Comment on above: Performed By: #### C BC Auto Diff ####[address] [place] [address] MCH 29.0 pg Normal 27.0 - 35.0 [facility] Comment on above: Performed By: #### C BC Auto Diff ####[address] [place] [address] MCHC mass conc (RBC) 34.2 g/dL Normal 32.0 - 36.0 [facility] Comment on above: Performed By: #### C BC Auto Diff ####[address] [place] [address] MCV 84.9 fL Normal 80.0 - 100.0 [facility] Comment on above: Performed By: #### C BC Auto Diff ####[address] [place] [address] Monocytes/100 leukocytes 6 % Normal 1 - 15 [facility] Comment on above: Performed By: #### C BC Auto Diff ####[facility] [place] [address] Neutrophils/100 WBC Auto (Bld) 74 % High 50 - 70 [facility] Comment on above: Performed By: #### C BC Auto Diff ####[facility] [place] [address] Platelet mean volume (PMV) 8.0 fL Normal 7.5 - 11.5 [facility] Comment on above: Performed By: #### C BC Auto Diff ####[address] [place] [address] Platelets 454 uLx10 High 150 - 450 [facility] Comment on above: Performed By: #### C BC Auto Diff ####[address] [place] [address] WBC (Leukocytes) 12.2 10 X 3/mm High 3.7 - 11.0 [facility] Comment on above: Performed By: #### C BC Auto Diff ####[address] [place] [address] CT BRAIN WOon 02-06-2017 Thyroid stimulating hormone [...] effectReport electronically signed by: Dr. Zaire Babcock [facility] CT CERVICAL SPINE WOon 02-06 CT CERVICAL [...] indicated.Report electronically signed by: Dr. Mahamed King [facility] CT SINUS/FACIAL WOon 017 CT SINUS/FACIAL WO [...] body.Report electronically signed by: Dr. Hal Ayoub [facility] Hepatic Function Panelon Alanine aminotransferase (ALT) 30 U/L Normal 7 - 52 [facility] Comment on above: Performed By: #### B MP, LIVER PROFILE ####[address] [place] [address] Albumin 3.8 g/dL Normal 3.5 - 5.0 [facility] Comment on above: Performed By: #### B MP, LIVER PROFILE ####[address] [place] [address] Alkaline phosphatase (ALP) 63 U/L Normal 38 - 126 [facility] Comment on above: Performed By: #### B MP, LIVER PROFILE ####[address] [place] [address] Aspartate aminotransferase (AST) 22 U/L Normal 14 - 36 [facility] Comment on above: Performed By: #### B MP, LIVER PROFILE ####[address] [place] [address] Bilirubin (direct) 0.0 mg/dL Normal 0.0 - 0.2 [facility] Comment on above: Performed By: #### B MP, LIVER PROFILE ####[address] [place] [address] Bilirubin (total) 0.8 mg/dL Normal 0.2 - 1.3 [facility] Comment on above: Performed By: #### B MP, LIVER PROFILE ####[address] [place] [address] Protein 6.9 g/dL Normal 6.3 - 8.2 [facility] Comment on above: Performed By: #### B MP, LIVER PROFILE ####[address] [place] [address] PT/INRon 02-06-2017 INR Coag RelTime (Bld) See Comments Normal [facility] Comment on above: Result Comment: [...] 2.5-3.5 Performed By: #### P T/INR, PTT ####[address] [place] [address] INR Coag RelTime (PPP) 0.94 Normal 0.90 - 1.10 [facility] Comment on above: Performed By: #### P T/INR, PTT ####[address] [address] Prothrombin time (PT) Coag time (PPP) 12.6 s Normal [facility] Comment on above: Performed By: #### P T/INR, PTT ####[address] [address] Troponin I, Extra Sensitiveo n 02-06-2017 Troponin I.cardiac mass conc ng/mL Normal 0.000 - 0.034 [facility] Comment on above: Result Comment: Limi t of Detection: <0.012 ng/mLAt Risk of Myocardial Damage: 0.012-0.034 ng/mLProbable Myocardial Damage: >0.034 ng/mL Performed By: #### T ROPONIN I ####[address] [address] hCG, Qualitative-Serumon Internal Control ACCEPTABLE Normal [facility] Comment on above: Performed By: #### H CG,QUAL SERUM ####[address] [place] [address] hCG, Qualitative-Serum Negative Normal NEGATIVE [facility] Comment on above: Performed By: #### H CG,QUAL SERUM ####[facility] [place] [address] Vital Signs Date Time Vital Sign Value Performing Clinician Facility 09-18-2024 13:47-0500 Body mass index (BMI) [Ratio] 31.92 kg/m2 Loraine OLIVO Work Phone: [facility] 09-18-2024 13:47-0500 Body weight 87 kg Loraine OLIVO Work Phone: [facility] 09-18-2024 13:47-0500 Diastolic blood pressure 76 mm[Hg] Loraine OLIVO Work Phone: [facility] 09-18-2024 13:47-0500 Systolic blood pressure 116 mm[Hg] Loraine OLIVO Work Phone: [facility] 09-08-2024 15:52-0500 Body height 165.1 cm [facility] 09-08-2024 15:52-0500 Body mass index (BMI) [Ratio] 58.6 kg/m2 [facility] 09-08-2024 15:52-0500 Body temperature 98.9 [degF] [facility] 09-08-2024 15:52-0500 Body weight 160 kg [facility] 09-08-2024 15:52-0500 Diastolic blood pressure 78 mm[Hg] [facility] 09-08-2024 15:52-0500 Heart rate 105 /min [facility] 09-08-2024 15:52-0500 Respiratory rate 18 /min [facility] 09-08-2024 15:52-0500 SaO2% (BldA) [Mass fraction] 97 % [facility] 09-08-2024 15:52-0500 Systolic blood pressure 120 mm[Hg] [facility] 08-21-2024 13:18-0500 Body mass index (BMI) [Ratio] 31.12 kg/m2 Kermit Elayne DO Work Phone: [facility] 08-21-2024 13:18-0500 Body weight 84.82 kg Kermit Elayne DO Work Phone: [facility] 08-21-2024 13:18-0500 Diastolic blood pressure 70 mm[Hg] Kermit Elayne DO Work Phone: [facility] 08-21-2024 13:18-0500 Systolic blood pressure 120 mm[Hg] Kermit Elayne DO Work Phone: [facility] 07-21-2024 11:10-0500 Body mass index (BMI) [Ratio] 29.45 kg/m2 [facility] Nurse [facility] 07-21-2024 11:10-0500 Body weight 80.29 kg [facility] Nurse [facility] 07-21-2024 11:10-0500 Diastolic blood pressure 76 mm[Hg] [facility] Nurse [facility] 07-21-2024 11:10-0500 Systolic blood pressure 124 mm[Hg] [facility] Nurse [facility] 06-08-2024 10:32-0500 Body height 165.1 cm [facility] 06-08-2024 10:32-0500 Body mass index (BMI) [Ratio] 29.1 kg/m2 [facility] 06-08-2024 10:32-0500 Body temperature 97.5 [degF] [facility] 06-08-2024 10:32-0500 Body weight 79.37 kg [facility] 06-08-2024 10:32-0500 Diastolic blood pressure 89 mm[Hg] [facility] 06-08-2024 10:32-0500 Heart rate 93 /min [facility] 06-08-2024 10:32-0500 Respiratory rate 18 /min [facility] 06-08-2024 10:32-0500 SaO2% (BldA) [Mass fraction] 98 % [facility] 06-08-2024 10:32-0500 Systolic blood pressure 130 mm[Hg] [facility] 04-21-2024 13:40-0400 Body height 165.1 cm [facility] 04-21-2024 13:40-0400 Body mass index (BMI) [Ratio] 28.1 kg/m2 [facility] 04-21-2024 13:40-0400 Body temperature 99.4 [degF] [facility] 04-21-2024 13:40-0400 Body weight 76.82 kg [facility] 04-21-2024 13:40-0400 Diastolic blood pressure 84 mm[Hg] [facility] 04-21-2024 13:40-0400 Heart rate 85 /min [facility] 04-21-2024 13:40-0400 Respiratory rate 18 /min [facility] 04-21-2024 13:40-0400 SaO2% (BldA) [Mass fraction] 99 % [facility] 04-21-2024 13:40-0400 Systolic blood pressure 126 mm[Hg] [facility] 12-22-2023 18:07-0400 Body height 165.1 cm [facility] 12-22-2023 18:07-0400 Body mass index (BMI) [Ratio] 27.8 kg/m2 [facility] 12-22-2023 18:07-0400 Body temperature 98.7 [degF] [facility] 12-22-2023 18:07-0400 Body weight 75.74 kg [facility] 12-22-2023 18:07-0400 Heart rate 84 /min [facility] 12-22-2023 18:07-0400 Respiratory rate 18 /min [facility] 12-22-2023 18:07-0400 SaO2% (BldA) [Mass fraction] 99 % [facility] Encounters Encounter Date Encounter Type Care Provider Facility Start: 09-18-2024 End: 09-18-2024 Bamboo flowsheet Loraine OLIVO Work Phone: [facility] Start: 09-18-2024 End: 09-25-2024 Bamboo flowsheet Loraine OLIVO Work Phone: [facility] Start: 09-18-2024 End: 09-25-2024 Clinisync Result Encounter Loraine OLIVO Work Phone: [facility] Unsolicited Start: 09-18-2024 End: 09-19-2024 External Result Encounter Loraine Costellodorene OLIVO Work Phone: [facility] Unsolicited Start: 09-18-2024 End: 09-18-2024 Patient encounter procedure Loriane OLIVO Work Phone: [facility] Work Phone: Start: 09-18-2024 End: 09-18-2024 Periodic preventive med est patient 18-39 yrs Loraine Elmer OLIVO Work Phone: [facility] Comment on above: Well woman exam with routine gynecological exam; Second trimester ; 18 weeks gestation of ; Vaginal discharge; STD exposure; Screening, , for anatomic survey; Sinusitis, unspecified chronicity, unspecified location Start: 09-18-2024 End: 09-18-2024 ambulatory LORAINE HILLMAN Not Available Start: 09-08-2024 End: 09-08-2024 ambulatory [facility] Work Phone: Start: 09-08-2024 End: 09-08-2024 Patient encounter procedure [facility] Loc Work Phone: Start: 09-06-2024 [...] anemia Start: 08-21-2024 End: 08-21-2024 ambulatory KERMIT HOLLY Not Available Start: 08-15-2024 End: 08-15-2024 Clinisync Result Encounter Kermit Elayne DO Work Phone: [facility] Unsolicited Start: 08-15-2024 End: 08-15-2024 Clinisync Result Encounter Kermit Elayne DO Work Phone: [facility] Unsolicited Start: 07-21-2024 End: 07-21-2024 ambulatory [facility] Elayne Nurse [facility] Comment on above: GA: 10w0d Start: 06-08-2024 End: 06-08-2024 ambulatory [facility] Work Phone: Start: 06-08-2024 End: 06-08-2024 Patient encounter procedure [facility] Urgent Care Loc Work Phone: Start: 04-21-2024 End: 04-21-2024 ambulatory [facility] Center Work Phone: Start: 04-21-2024 End: 04-21-2024 Patient encounter procedure [facility] Ur[facility] Loc Work Phone: Start: 12-22-2023 End: 12-22-2023 ambulatory [facility] Work Phone: Start: 12-22-2023 End: 12-22-2023 Patient encounter procedure [facility] Urgent Care Loc Work Phone: Start: 12-01-2022 ambulatory Facility:[facility] Start: 08-24-2022 End: 08-25-[address] MECHE LE Facility:[facility] Start: 08-19-2022 End: 08-19-[address] KERMIT HOLLY Facility:[facility] Start: 07-30-2022 End: 07-30-2022 ambulatory LEANDRO VERDUZCO Facility:[facility] Start: 03-11-2022 End: 03-11-[address] KERMIT HOLLY Facility:[facility] Start: 11-23-2021 End: 11-23-2021 ambulatory LEANDRO VERDUZCO Facility:[facility] Start: 02-07-2017 End: 02-07-2017 Ambulatory [facility] Start: 02-06-2017 End: 02-07-2017 Emergency department patient visit IBRAHIMA WARE Facility:[facility] Procedures Date Procedure Procedure Detail Performing Clinician Start: 09-18-2024 RECURRENT VAGINITIS (HTRX) Loraine OLIVO Work Phone: Start: 09-18-2024 Urnls dip stick/tabl et rgnt non-auto w/o micrscp Loraine OLIVO Work Phone: Start: 09-18-2024 IGP,APTIMA HPV,AGE GDLN Loraine OLIVO Work Phone: Start: 09-06-2024 AFP, SERUM, OPEN SPI NA BIFIDA Kermit Elayne DO Work Phone: Start: 08-21-2024 Urnls dip stick/tabl et rgnt non-auto w/o micrscp Kermit Elayne DO Work Phone: Start: 08-15-2024 ALL CBC WITH AUTO DIFF Kermit Elayne DO Work Phone: Start: 07-21-2024 Urnls dip stick/tabl et rgnt non-auto w/o micrscp Kermit Elayne DO Work Phone: Start: 06-08-2024 Quick Strep (POC) Start: 04-21-2024 Quick Strep (POC) Start: 12-22-2023 Quick Strep (POC) Start: 02-07-2017 IP CONSULT TO ORTHOP EDIC SURGERY ALTA ESTRADA PRICILA Start: 02-07-2017 NURSING COMMUNICATION P SHARLENE GOODRICH Start: 02-07-2017 DISCHARGE PATIENT ALTA GOODRICH [...] Treatment Date Care Activity Detail Author Start: 10-16-2024 End: 10-16-2024 Patient encounter procedure 10/16/2024 2:20 PM EDT Routine [facility] [address] [place] [address] Kermit Holly, DO [address] [place] [address] [facility] Start: 09-18-2024 End: 03-18-2025 Alpha fetoprotein, maternal Alpha fetoprotein, maternal Lab Routine Second trimester 18 weeks gestation of Expected: 09/18/2024 (Approximate), Expires: 03/18/2025 [facility] Comment on above: Expected: 09/18/2024 (Approximate), Expires: 03/18/2025 Start: 09-18-2024 End: 09-18-2025 US for US OB 14+ weeks anatomy scan Imaging Routine Screening, , for anatomic survey Expected: 09/18/2024, Expires: 09/18/2025 [facility] Comment on above: Expected: 09/18/2024 , Expires: 09/18/2025 Start: 09-18-2024 End: 09-18-2024 Patient encounter procedure [facility] Comment on above: Arrived Start: 08-21-2024 End: 09-21-2024 Alpha fetoprotein, maternal Alpha fetoprotein, maternal Lab Routine 14 weeks gestation of Second trimester Expected: 08/21/2024 (Approximate), Expires: 09/21/2024 [facility] Work Phone: Comment on above: Expected: 08/21/2024 (Approximate), Expires: 09/21/2024 Start: 08-21-2024 End: 08-21-2024 Patient encounter procedure [facility] Comment on above: Arrived Start: 07-21-2024 End: 07-21-2025 ABO/Rh ABO/Rh Lab Routine Missed menses , unspecified gestational age Expected: 07/21/2024 (Approximate), Expires: 07/21/2025 [facility] Comment on above: Expected: 07/21/2024 (Approximate), Expires: 07/21/2025 Start: 07-21-2024 End: 07-21-2025 Blood type and Indirect antibody screen panel - Blood Type and screen Lab Routine Missed menses , unspecified gestational age Expected: 07/21/2024 (Approximate), Expires: 07/21/2025 [facility] Work Phone: Comment on above: Expected: 07/21/2024 (Approximate), Expires: 07/21/2025 Start: 07-21-2024 End: 07-21-2025 Drugs of abuse panel - Urine by Screen method Rapid drug screen, urine Lab Routine , unspecified gestational age Encounter for supervision of normal first in first trimester Expected: 07/21/2024 (Approximate), Expires: 07/21/2025 [facility] Comment on above: Expected: 07/21/2024 (Approximate), Expires: 07/21/2025 Start: 07-21-2024 End: 07-21-2025 US Pelvis transvaginal US OB transvaginal Imaging Routine Missed menses Expected: 07/21/2024 (Approximate), Expires: 07/21/2025 [facility] Comment on above: Expected: 07/21/2024 (Approximate), Expires: 07/21/2025 Bacteria identified in Urine by Culture Urine culture Microbiology Routine Missed menses Ordered: 07/21/2024 [facility] Comment on above: Ordered: 07/21/2024 CBC W Auto Different ial panel - Blood CBC and differential Lab Routine Missed menses , unspecified gestational age Ordered: 07/21/2024 [facility] Comment on above: Ordered: 07/21/2024 CHLAMYDIA TRACHOMATI S (GENITO/STI) CHLAMYDIA TRACHOMATIS (GENITO/STI) Lab Routine STD exposure Ordered: 09/18/2024 [facility] Comment on above: Ordered: 09/18/2024 Cytology Cervical or vaginal smear or scraping study Pap Smear Pathology and Cytology Routine Well woman exam with routine gynecological exam Ordered: 09/18/2024 [facility] Comment on above: Ordered: 09/18/2024 Hemoglobin A1c/Hemoglobin.total in Blood Hemoglobin A1c Lab Routine Missed menses , unspecified gestational age Ordered: 07/21/2024 [facility] Comment on above: Ordered: 07/21/2024 Hepatitis B virus surface Ag [Presence] in Serum or Plasma by Immunoassay Hepatitis B surface antigen Lab Routine Missed menses , unspecified gestational age Ordered: 07/21/2024 [facility] Comment on above: Ordered: 07/21/2024 Hepatitis C virus Ab [Presence] in Serum or Plasma by Immunoassay Hepatitis C antibody Lab Routine Missed menses , unspecified gestational age Ordered: 07/21/2024 [facility] Comment on above: Ordered: 07/21/2024 HIV-1/HIV-2 antigen/antibody combination immunoassay HIV-1 and HIV-2 antibodies Lab Routine Missed menses , unspecified gestational age Ordered: 07/21/2024 [facility] Comment on above: Ordered: 07/21/2024 Human papilloma viru s DNA [Presence] in Unspecified specimen by Probe with amplification HPV DNA probe, amplified Microbiology Routine Well woman exam with routine gynecological exam Ordered: 09/18/2024 [facility] Comment on above: Ordered: 09/18/2024 Neisseria gonorrhoea e DNA [Presence] in Unspecified specimen by JESS with probe detection Neisseria gonorrhea DNA probe, direct Lab Routine STD exposure Ordered: 09/18/2024 [facility] Comment on above: Ordered: 09/18/2024 Reagin Ab [Presence] in Serum by RPR RPR Lab Routine Missed menses , unspecified gestational age Ordered: 07/21/2024 [facility] Comment on above: Ordered: 07/21/2024 Rubella antibody, IgG Rubella an tibody, IgG Lab Routine Missed menses , unspecified gestational age Ordered: 07/21/2024 [facility] Comment on above: Ordered: 07/21/2024 SURESWAB(R) ADVANCED VAGINITIS PLUS, TMA SURESWAB(R) ADVANCED VAGINITIS PLUS, TMA Pathology and Cytology Routine Vaginal discharge Ordered: 09/18/2024 [facility] Work Phone: Comment on above: Ordered: 09/18/2024 Payers Date Payer Category Payer Medicaid [facility] [id number] 2022 Medicaid [id number] 2019 Unknown [id number] 2017 Unknown 2014 Unknown [id number] 1990 Unknown [id number] 1990 Unknown [id number] 1990 Unknown [id number] 1990 Unknown [id number] 1990 Unknown [id number] 1990 Unknown [id number] 1990 Unknown [id number] 1990 Unknown [id number] 1990 Unknown [id number] 1959 Unknown [id number] Unknown [facility] [id number] Social History Date Type Detail Facility Start: 03-31-2023 End: 08-11-2023 Tobacco smoking status NHIS Never smoked tobacco (finding) [facility] Start: 1990 Sex Assigned At Female F [facility] Start: 06-08-2024 End: 09-08-2024 Sex Female (finding) [facility] Start: 03-31-2023 Tobacco use and exposure [...] [facility] History of Present illness Narrative 09-18-2024 PALLAVI Mccord - 09/18/2024 1:30 PM EST Note Date & Type Note Facility 09-18-2024 History of Presen t illness Narrative Reason for Appointment: Patient ID: Lynnette Villarreal is a 33 y.o. female who presents for Routine Visit, Well Women Visit, and STI Screening Patient presents today for Return OB appointment.and pelvic exam MEDICATIONS Current Outpatient Medications Medication Instructions aspirin (VAZALORE) 81 mg, Oral, Daily, Do not crush or chew. cephalexin (KEFLEX) 500 mg, Oral, 4 times daily ketoconazole (NIZOral) 2 % cream Topical, Daily, Apply to effected area daily PRN ALLERGIES Allergies Allergen Reactions Amoxicillin Hives and Rash Azithromycin Hives and Rash Cefaclor Hives and Rash Clarithromycin Hives and Rash Doxycycline Hives and Rash Sulfa Antibiotics Hives and Rash Sulfamethoxazole-Trimethoprim Hives and Rash PROBLEMS Active Ambulatory Problems Diagnosis Date Noted History of anemia 08/21/2024 Tinea pedis 08/21/2024 History of pre-eclampsia 08/21/2024 Second trimester 08/21/2024 Resolved Ambulatory Problems Diagnosis Date Noted No Resolved Ambulatory Problems Past Medical History: Diagnosis Date Herpes simplex HISTORY PAST MEDICAL HISTORY SOCIAL HISTORY Past Medical History: Diagnosis Date Herpes simplex Social History Tobacco Use Smoking status: Never Smokeless tobacco: Never Substance Use Topics Alcohol use: Yes Comment: Occasional alcohol use Drug use: Never FAMILY HISTORY No family history on file. SURGICAL HISTORY Past Surgical History: Procedure Laterality Date PAP SMEAR 03/11/2022 negative REVIEW OF SYSTEMS Review of Systems: Review of Systems Constitutional: Negative. HENT: Negative. Eyes: Negative. Respiratory: Negative. Cardiovascular: Negative. Gastrointestinal: Negative. Genitourinary: Negative. Musculoskeletal: Negative. Skin: Negative. Neurological: Negative. All other systems reviewed and are negative. Hematological: Negative. Endocrine: Negative. Allergic/Immunologic: Negative. OBJECTIVE Objective: Physical Exam Constitutional: Appearance: Normal appearance. She is well-developed and normal weight. Genitourinary: Vulva normal. Right Adnexa: not tender and no mass present. Left Adnexa: not tender and no mass present. No cervical discharge. Breasts: Breasts are soft. Right: Normal. Left: Normal. HENT: Head: Normocephalic. Nose: Nose normal. Mouth/Throat: Mouth: Mucous membranes are moist. Cardiovascular: Rate and Rhythm: Normal rate and regular rhythm. Pulses: Normal pulses. Pulmonary: Effort: Pulmonary effort is normal. Breath sounds: Normal breath sounds. Abdominal: General: Bowel sounds are normal. There is no distension. Palpations: Abdomen is soft. Tenderness: There is no abdominal tenderness. There is no guarding or rebound. Musculoskeletal: General: No swelling. Normal range of motion. Cervical back: Normal range of motion. Right lower leg: No edema. Left lower leg: No edema. Neurological: General: No focal deficit present. Mental Status: She is alert and oriented to person, place, and time. Skin: General: Skin is warm and dry. Psychiatric: Mood and Affect: Mood normal. Behavior: Behavior normal. Thought Content: Thought content normal. Judgment: Judgment normal. Vitals and nursing note reviewed. Exam conducted with a coagulating bath mixer present. Vitals: Estimated body mass index is 31.92 kg/m as calculated from the following: Height as of 23: 5' 5 . Weight as of this encounter: 191 lb 12.8 oz. BP: 116/76 Patient's last menstrual period was 05/14/2024. ASSESSMENT & PLAN ICD-10-CM 1. Well woman exam with routine gynecological exam Z01.419 Pap Smear HPV DNA probe, amplified 2. Second trimester Z34.92 POCT urinalysis dipstick manually resulted Alpha fetoprotein, maternal Alpha fetoprotein, maternal 3. 18 weeks gestation of Z3A.18 POCT urinalysis dipstick manually resulted Alpha fetoprotein, maternal Alpha fetoprotein, maternal 4. Vaginal discharge N89.8 SURESWAB(R) ADVANCED VAGINITIS PLUS, TMA 5. STD exposure Z20.2 CHLAMYDIA TRACHOMATIS (GENITO/STI) Neisseria gonorrhea DNA probe, direct 6. Screening, , for anatomic survey Z36.89 US OB 14+ weeks anatomy scan US OB 14+ weeks anatomy scan 7. Sinusitis, unspecified chronicity, unspecified location J32.9 cephalexin (Keflex) 500 MG capsule Return OB/Annual Exam: Patient presents today for an annual exam/routine obstetrics appointment. Patient is currently 18w3d . Patient is doing well and states she has no complaints. Pap/cultures was obtained without difficulty. Orders Placed This Encounter Procedures HPV DNA probe, amplified US OB 14+ weeks anatomy scan CHLAMYDIA TRACHOMATIS (GENITO/STI) Neisseria gonorrhea DNA probe, direct Alpha fetoprotein, maternal POCT urinalysis dipstick manually resulted Follow Up: Patient is to return to our office in 4 weeks for routine OB appointment Documented by Meri Cooper LPN on behalf of: PALLAVI Mccord documented in this encounter [facility] History of Present illness Narrative 08-21-2024 Roxana Garcia, ALARM INVESTIGATOR - 08/21/2024 1:10 PM EST Note Date [...] or undercooked meat, and stay away from [facility]. Patient has been consulted regarding any further [...] calculated from the following: Height as of 11/30/23: 5' 5 . Weight as of this [...] or undercooked meat, and stay away from [facility]. Patient has also been advised to not [...] Keiko Bruce MA documented in this encounter [facility] Evaluation note 04-21-2024 Note Date & Type Note Facility 04-21-2024 Evaluation note Diagnosis Onset Date Resolution Acute right otitis media acute April 21, 2024 1:26pm Viral URI acute June 08, 2024 9:51am [facility] Work Phone: Evaluation note Note Date & Type Note Facility Evaluation note Diagnosis Onset Date Strep throat acute [facility] Work Phone: Evaluation note Note Date & Type Note Facility Evaluation note Diagnosis Onset Date Acute right otitis media acu te [facility] Work Phone: Evaluation note Note Date [...] organs documented in this encounter [facility] Evaluation note Note Date & Type Note Facility Evaluation note Diagnosis Onset Date Resolution Viral URI with cough acute Febr uary 2024 3:37pm [facility] Work Phone: Evaluation note Note Date & Type Note Facility Evaluation note Diagnosis Well woman exam with routine gynecological exam Routine gynecological examination Second trimester state, incidental 18 weeks gestation of Vaginal discharge Leukorrhea, not specified as infective STD exposure Screening, , for anatomic survey Encounter for anatomic survey Sinusitis, unspecified chronicity, unspecified location documented in this encounter [facility] Summary Purpose Family History Relationship Condition Age [...] section and content) DATE CREATED AUTHOR 01/19/2018 [facility] DATE CREATED AUTHOR AUTHOR'S ORGANIZ ATION 01/19/2018 [facility] DATE CREATED AUTHOR AUTHOR'S ORGANIZ ATION 08/26/2022 [facility] DATE CREATED AUTHOR AUTHOR'S ORGANIZ ATION 12/02/2022 [facility] DATE CREATED AUTHOR AUTHOR'S ORGANIZ ATION 09/19/2024 [facility] EPIC Care Teams (unrecognized sec tion and content) Team Status: Active Member Role Status Dates Violet Cerda CLINICAL ASSESSMENT MANAGER-C Primary Care Provider Active Team Status: Inactive Member Role Status Dates Violet Cerda CLINICAL ASSESSMENT MANAGER-C Primary Care Provider Active Start: December 22, [...] Inactive Member Role Status Dates Violet Cerda CLINICAL ASSESSMENT MANAGER-C Primary Care Provider Active Start: June 08, 2024 End: June 08, 2024 Mayte Joiner APRN Attending Provider Active Start: June 08, 2024 End: June 08, 2024 Sports Bookmaker Relationship Specialty Start Date End Date Cuco Munoz MD [address] [place] [id number] PCP - General Family Medicine 06/24/23 Sports Bookmaker Relationship Specialty Start Date End Date Cuco Munoz MD [address] [place] [address] [id number] PCP - General Family Medicine 06/24/23 Sports Bookmaker Relationship Specialty Start Date End Date Cuco Munoz MD [address] [place] [address] [id number] PCP - General Family Medicine 06/24/23 Sports Bookmaker Relationship Specialty Start Date End Date Cuco Munoz MD [address] [place] [address] [id number] PCP - General Family Medicine 06/24/23 Team Status: Inactive Member Role Status Dates Violet Cerda NP-C Primary Care Provider Active Start: September 08, 2024 End: September 08, 2024 VI Nevarez Active Start: August End: September 08, 2024 Mayte Joiner APRN Attending Provider Active Start: September 08, 2024 End: September 08, 2024 Sports Bookmaker Relationship Specialty Start Date End Date Cuoc Munoz MD [address] [place] [id number] PCP - General Family Medicine 06/24/23 Sports Bookmaker Relationship Specialty Start Date End Date Cuco Munoz MD [address] [place] [address] [id number] PCP - General Family Medicine 06/24/23 Sports Bookmaker Relationship Specialty Start Date End Date Cuco Munoz MD [address] [place] [address] [id number] PCP - General Family Medicine 06/24/23 Goals (unrecognized section and content) Goals may be documented in a n alternate sectionGoals may be documented in an alternate sectionGoals may be documented in an alternate sectionGoals may be documented in an alternate section Reason for Visit (unrecogniz ed section and content) Reason Comments Amenorrhea Reason Comments Well Women Visit Reason Comments Routine Visit Well Women Visit STI Screening FOR RECORDS PERTAINING TO PATIENTS WHO ARE [...] BE BASED ON THE PRIMARY CLINICAL RECORDS. [facility], [facility]. provides no warranty or guarantee of the accuracy or completeness of information in this document.
== END 2024-10-06 17:00 | disposition home or self-care (01) ==
LOC: US 16:59
PROVIDERS: Visit Provider Physician Assistant
DX: Z36.89 Encounter for other specified antenatal screening (principal)
CPT/HCPCS: 76805; 76817

== ENCOUNTER 2024-10-27 16:52 | Outpatient (OUT) | payer MEDICAID, SELFPAY ==
--- NOTE | 2024-10-27 16:55 | US_ITS ---
[facility] [place] [id number] Patient Name: ABRAM NELSON MRN: [id number] date: 1990 Sex: F Assigned Patient Location: Current Patient Location: Accession/Order Number: [id number] Exam Date: 10/27/2024 19:10 Report Date: 10/27/2024 19:11 At the request of: KERMIT MG DO Procedure: US OB incomplete anatomy Limited ultrasound HISTORY: Follow-up assessment of anatomy Fetus in breech presentation with variable lie. Amniotic fluid subjectively normal. The heart rate 148 bpm. There is visualization of 4 chambered heart, right ventricular outflow track and left ventricular outflow track. US/US OB incomplete anatomy IMPRESSION: Visualization of four-chamber heart and right and left ventricular outflow tracts. Impression dictated by: David Chaudhari M.D.10/27/2024 7:11 PM Dictation Location[facility] Electronically authenticated by: [id number] Y Date: 10/27/2024 19:11
--- OUTSIDE RECORDS SUMMARY | 2024-10-27 16:57 | XMS_ITS | CCD ---
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 [address] Dr. Babar Marks Performed by: Comment Normal [facility] Comment on above: Result Comment: Marry Billy Overnight Cashier (ASCP) Performed at: WB Performed By: #### [id number] #### [facility] [address] [place] [address] Dr. Babar Marks Specimen adequacy: Comment Normal [facility] Comment on above: Result Comment: Sati sfactory for evaluation. Endocervical and/or squamous metaplastic cells (endocervical component) are present. Performed at: WB Performed By: #### [id number] #### [facility] [address] [place] [address] Dr. Babar Marks CHLAMYDIA/GONOCOCCUS JESS (SW AB/URINE/PAPon 03-14-2022 Chlamydia trachomatis, JESS Negative Normal Negative [facility] Comment on above: Performed By: #### C T/NGNA #### [facility] [address] [place] [address] Dr. Babar Marks Neisseria gonorrhoeae, JESS Negative Normal Negative [facility] Comment on above: Performed By: #### C T/NGNA #### [facility] [address] [address] [address] Babar Marks VAGINITIS/VAGINOSIS DNA PROB Tam 03-14-2022 Kelsey species Negative Normal Negative [facility] Comment on above: Performed By: #### V AGINT #### [facility] [address] [address] [address] Babar Marks Gardnerella vaginalis Negative Normal Negative [facility] Comment on above: Performed By: #### V AGINT #### [facility] [address] [address] [address] Babar Marks Trichomonas vaginalis Negative Normal Negative [facility] Comment on above: Performed By: #### V AGINT #### [facility] [address] [place] [address] Dr. Babar Marks XR CHEST 2 Von 11-23-2021 XR CHEST 2 V EXAM: XR CHEST 2 V COMPARISON: 02/06/2017 CLINICAL INDICATION: Cough. FINDINGS: The cardiomediastinal silhouette is within normal limits. No focal consolidation. No pleural effusion. No pneumothorax. IMPRESSION: No radiographic evidence of acute cardiopulmonary abnormality. Electronically authenticated by: DANIELA ZENG Date: 2021-11-23 17:05 Normal [facility] Discharge Summaryon 02-08-20 17 HIM IP Note OR Automatic Log Cut Off Sawyer Normal [facility] Drug Scr, Abuse, Uron 2016 Amphetamine(s),Ur Negative Normal NEG [facility] Comment on above: Result Comment: (Pos itive cutoff 1000 ng/mL) Performed By: #### U AMIC, MARLEEN ####[id number] [place] [address] Barbiturate(s),Ur Negative Normal NEG [facility] Comment on above: Result Comment: (Pos itive cutoff 200 ng/mL) Performed By: #### U AMIC, MARLEEN ####[address] [place] [address] Base excess Negative Normal NEG [facility] Comment on above: Result Comment: (Pos itive cutoff 300 ng/mL) Performed By: #### U AMIC, MARLEEN ####[facility] ParodyYcqcnyliuseo[address] [place] [address] Benzodiazepine(s) Negative Normal NEG [facility] Comment on above: Result Comment: (Pos itive cutoff 200 ng/mL) Performed By: #### U AMIC, MARLEEN ####[facility] North[facility]ious ParodySrpbfrxmxsaw[address] [place] [address] Cannabinoid(s),Ur Negative Normal NEG [facility] Comment on above: Result Comment: (Pos itive cutoff 50 ng/mL) Performed By: #### U AMIC, MARLEEN ####[address] [address] Interpretive Info Assay provides medic al screening only. The absence of expected drug(s) and/or Normal [facility] Comment on above: Result Comment: meta bolite(s) may indicate diluted or adulterated urine, limitations of testing or timing of collection.Testing for legal purposes should be confirmed by another method. To request confirmation of test result, please call the lab within 7 days of sample submission.[facility] [place] [address] Performed By: #### U AMIC, MARLEEN ####[address] [place] [address] Opiate(s), Ur Positive Abnormal NEG [facility] Comment on above: Result Comment: (Pos itive cutoff 300 ng/mL) Performed By: #### U AMIC, MARLEEN ####[facility] NorthSerious ParodyTjpmhvauibpu[address] [place] [address] Oxycodone, Urine Negative Normal NEG [facility] Comment on above: Result Comment: (Pos itive cutoff 100 ng/mL) Performed By: #### U AMIC, MARLEEN ####[facility] [address] [place] [address] Phencyclidine, Ur Negative Normal NEG [facility] Comment on above: Result Comment: (Pos itive cutoff 25 ng/mL) Performed By: #### U AMIC, MARLEEN ####[facility] [address] [place] [address] Urine, methadone presence Negative Normal NEG [facility] Comment on above: Result Comment: (Pos itive cutoff 300 ng/mL) Performed By: #### U AMIC, MARLEEN ####[address] [address] Buprenorphrine, Ur NOT REPORTED Normal NEG [facility] Comment on above: Performed By: #### U AMIC, MARLEEN ####[address] [address] MDMA, Urine NOT REPORTED Normal NEG [facility] Comment on above: Performed By: #### U AMIC, MARLEEN ####[address] [address] Methamphetamine, Ur NOT REPORTED Normal NEG [facility] Comment on above: Performed By: #### U AMIC, MARLEEN ####[address] [address] Propoxyphene,Urine NOT REPORTED Normal NEG [facility] Comment on above: Performed By: #### U AMIC, MARLEEN ####[facility] [address] [place] [address] Urine, tricyclic antidepressants NOT REPORTED Normal NEG [facility] Comment on above: Performed By: #### U AMIC, MARLEEN ####[facility] [address] [place] [address] ED Noteon 02-07-2017 HIM IP Note OR Automatic Log Cut Off Sawyer Normal [facility] HIM IP Note OR Automatic Log Cut Off Sawyer Normal [facility] ED Provider Noteon 7 HIM IP Note OR Automatic Log Cut Off Sawyer Normal [facility] Ethanol Alcoholon 02-07-2017 Ethanol mg/dL Normal <10 [facility] Comment on above: Performed By: #### A LCB ####[facility] [place] [address] Ethanol percent <0.010 Normal [facility] Comment on above: Result Comment: [facility] Serious Parody [address] [place] [address] Performed By: #### A LCB ####[facility] [place] [address] History and Physicalon 02-07 HIM IP Note OR Automatic Log Cut Off Sawyer Normal [facility] UA w reflex C&Son 02-07-2017 Reflex Culture? URINE CULTURE REFLEXED Normal [facility] Comment on above: Performed By: #### P T/INR, PTT ####[address] [place] [address] Urine, crystals in sediment NONE SEEN Normal NONE SEEN [facility] Comment on above: Performed By: #### P T/INR, PTT ####[address] [place] [address] Urine, bacteria in sediment Negative Normal [facility] Comment on above: Performed By: #### P T/INR, PTT ####[address] [place] [address] Urine, mucus presence in sediment Negative Normal NEGATIVE [facility] Comment on above: Performed By: #### P T/INR, PTT ####[id number] [place] [address] Urine, casts in sediment NONE SEEN Normal NONE SEEN [facility] Comment on above: Performed By: #### P T/INR, PTT ####[address] [place] [address] Urine, epithelial cells in sediment Negative Normal NEGATIVE [facility] Comment on above: Performed By: #### P T/INR, PTT ####[address] [place] [address] Erythrocytes (RBC) 0-4/HPF Normal NONE SEEN [facility] Comment on above: Performed By: #### P T/INR, PTT ####[address] [place] [address] WBC (Leukocytes) NONE SEEN Normal NONE SEEN [facility] Comment on above: Performed By: #### P T/INR, PTT ####[address] [place] [address] Urine, leukocyte esterase presence Negative Normal NEGATIVE [facility] Comment on above: Performed By: #### P T/INR, PTT ####[address] [place] [address] Urine, nitrite presence Negative Normal NEGATIVE [facility] Comment on above: Performed By: #### P T/INR, PTT ####[address] [place] [address] Urobilinogen, Dipstick 0.2 Normal 0.2 - 1.0 [facility] Comment on above: Performed By: #### P T/INR, PTT ####[address] [place] [address] Protein, Qual Negative Normal NEGATIVE [facility] Comment on above: Performed By: #### P T/INR, PTT ####[address] [place] [address] Urine, pH 7.0 [pH] Normal 5.0 - 9.0 [facility] Comment on above: Performed By: #### P T/INR, PTT ####[address] [place] [address] Blood, Dipstick TRACE Abnormal NEGATIVE [facility] Comment on above: Performed By: #### P T/INR, PTT ####[address] [place] [address] Urine, specific gravity 1.015 Normal 1.005 - 1.030 [facility] Comment on above: Performed By: #### P T/INR, PTT ####[address] [place] [address] Ketone, Dipstick Negative Normal NEGATIVE [facility] Comment on above: Performed By: #### P T/INR, PTT ####[address] [place] [address] Bilirubin (direct) Negative Normal NEGATIVE [facility] Comment on above: Performed By: #### P T/INR, PTT ####[address] [place] [address] Glucose mass conc Negative Normal NEGATIVE [facility] Comment on above: Performed By: #### P T/INR, PTT ####[address] [place] [address] Urine, character CLEAR Normal CLEAR [facility] Comment on above: Performed By: #### P T/INR, PTT ####[address] [place] [address] Urine, color YELLOW Normal [facility] Comment on above: Performed By: #### P T/INR, PTT ####[address] [place] [address] Urinalysis w/ Microon 2016 ----- Normal [facility] Comment on above: Performed By: #### U AMIC, MARLEEN ####[address] [address] Acetaminophen mass conc Negative Normal NEG [facility] Comment on above: Performed By: #### U AMIC, MARLEEN ####[address] [address] Bilirubin (direct) Negative Normal NEG [facility] Comment on above: Performed By: #### U AMIC, MARLEEN ####[address] [address] Hemoglobin mass conc (Bld) LARGE Abnormal NEG [facility] Comment on above: Performed By: #### U AMIC, MARLEEN ####[address] [address] Nitrite,Ur Negative Normal NEG [facility] Comment on above: Performed By: #### U AMIC, MARLEEN ####[address] [address] Turbidity CLEAR Normal CLEAR [facility] Comment on above: Performed By: #### U AMIC, MARLEEN ####[address] [address] Urine WBC's 0 TO 2 Normal 0-5 [facility] Comment on above: Performed By: #### U AMIC, MARLEEN ####[address] [address] Urine, casts in sediment 0 TO 2 HYALINE Normal 0-8 [facility] Comment on above: Result Comment: Refe rence range defined for non-centrifuged specimen. Performed By: #### U AMIC, MARLEEN ####[address] [place] [address] Urine, color YELLOW Normal YEL [facility] Comment on above: Performed By: #### U AMIC, MARLEEN ####[address] [address] Urine, epithelial cells in sediment 0 TO 2 Normal 0-5 [facility] Comment on above: Result Comment: [address] [address] Performed By: #### U AMIC, MARLEEN ####[address] [address] Urine, erythrocytes 2 TO 5 Normal 0-4 [facility] Comment on above: Result Comment: Refe rence range defined for non-centrifuged specimen. Performed By: #### U AMIC, MARLEEN ####[address] [address] Urine, glucose presence Negative Normal NEG [facility] Comment on above: Performed By: #### U AMIC, MARLEEN ####[address] [address] Urine, leukocyte esterase presence Negative Normal NEG [facility] Comment on above: Performed By: #### U AMIC, MARLEEN ####[address] [address] Urine, pH 6.0 [pH] Normal 5.0-8.0 [facility] Comment on above: Performed By: #### U AMIC, MARLEEN ####[address] [address] Urine, protein presence Negative Normal NEG [facility] Comment on above: Performed By: #### U AMIC, MARLEEN ####[address] [address] Urine, specific gravity 1.013 Normal 1.005-1.030 [facility] Comment on above: Performed By: #### U AMIC, MARLEEN ####[address] [address] Urobilinogen,Ur Normal Normal NORM [facility] Comment on above: Performed By: #### U AMIC, MARLEEN ####[address] [address] Epithelial, Renal NOT REPORTED Normal 0 [facility] Comment on above: Performed By: #### U AMIC, MARLEEN ####[address] [address] Mucus Strands NOT REPORTED Normal NONE [facility] Comment on above: Performed By: #### U AMIC, MARLEEN ####[address] [address] Other Observations NOT REPORTED Normal NREQ [facility] Comment on above: Performed By: #### U AMIC, MARLEEN ####[address] [address] Trichomonas NOT REPORTED Normal NONE [facility] Comment on above: Performed By: #### U AMIC, MARLEEN ####[address] [address] Urine, amorphous sediment presence in sediment NOT REPORTED Normal NONE [facility] Comment on above: Performed By: #### U AMIC, MARLEEN ####[address] [place] [address] Urine, bacteria in sediment NOT REPORTED Normal NONE [facility] Comment on above: Performed By: #### U AMIC, MARLEEN ####[address] [address] Urine, crystals in sediment NOT REPORTED Normal NONE [facility] Comment on above: Performed By: #### U AMIC, MARLEEN ####[address] [place] [address] Urine, yeast presence in sediment NOT REPORTED Normal NONE [facility] Comment on above: Performed By: #### U AMIC, MARLEEN ####[address] [place] [address] XR CHEST PA OR AP (1 VIEW)on [...] signed by: Dr. Chilo Fernandez [facility] XR SHOULDER RTon 02-07-2017 XR SHOULDER RT [...] electronically signed by: Dr. Chilo Fernandez Normal [facility] APTTon 02-06-2017 aPTT 29.1 s Normal 23.0 - 37.0 [facility] Comment on above: Performed By: #### P T/INR, PTT ####[address] [place] [address] Basic Metabolic Panelon 01-23 eGFR (non-black) 108.65 Normal [facility] Comment on above: Result Comment: eGFR Interpretation:Normal: Equal to or greater than 60 mL/min/1.73 meters squaredChronic Kidney Disease: Less than 60 mL/min/1.73 meters squaredKidney Failure: Less than 15 mL/min/1.73 meters squared Performed By: #### B MP, LIVER PROFILE ####[address] [address] eGFR (non-black) 114.39 Normal [facility] Comment on above: Result Comment: eGFR Interpretation:Normal: Equal to or greater than 60 mL/min/1.73 meters squaredChronic Kidney Disease: Less than 60 mL/min/1.73 meters squaredKidney Failure: Less than 15 mL/min/1.73 meters squared Performed By: #### B MP, LIVER PROFILE ####[address] [place] [address] eGFR (non-black) 108.1 Normal [facility] Comment on above: Result Comment: eGFR Interpretation:Normal: Equal to or greater than 60 mL/min/1.73 meters squaredChronic Kidney Disease: Less than 60 mL/min/1.73 meters squaredKidney Failure: Less than 15 mL/min/1.73 meters squared Performed By: #### B MP, LIVER PROFILE ####[address] [place] [address] eGFR (non-black) 81.88 Normal [facility] Comment on above: Result Comment: eGFR Interpretation:Normal: Equal to or greater than 60 mL/min/1.73 meters squaredChronic Kidney Disease: Less than 60 mL/min/1.73 meters squaredKidney Failure: Less than 15 mL/min/1.73 meters squared Performed By: #### B MP, LIVER PROFILE ####[address] [place] [address] eGFR (non-black) 125.60 Normal [facility] Comment on above: Performed By: #### B MP, LIVER PROFILE ####[address] [place] [address] eGFR (non-black) 132.24 Normal [facility] Comment on above: Performed By: #### B MP, LIVER PROFILE ####[address] [place] [address] eGFR (non-black) 124.64 Normal [facility] Comment on above: Performed By: #### B MP, LIVER PROFILE ####[address] [place] [address] eGFR (non-black) 94.39 Normal [facility] Comment on above: Performed By: #### B MP, LIVER PROFILE ####[address] [place] [address] Age 26 year(s) Normal [facility] Comment on above: Performed By: #### B MP, LIVER PROFILE ####[address] [place] [address] Calcium 10.1 mg/dL Normal 8.4 - 10.2 [facility] Comment on above: Performed By: #### B MP, LIVER PROFILE ####[address] [place] [address] Chloride 103 mmol/L Normal 98 - 107 [facility] Comment on above: Performed By: #### B MP, LIVER PROFILE ####[address] [place] [address] CO2 25 mmol/L Normal 22 - 32 [facility] Comment on above: Performed By: #### B MP, LIVER PROFILE ####[address] [place] [address] Creatinine 0.96 mg/dL Normal 0.52 - 1.04 [facility] Comment on above: Performed By: #### B MP, LIVER PROFILE ####[address] [place] [address] Glucose mass conc 126 mg/dL High 65 - 100 [facility] Comment on above: Performed By: #### B MP, LIVER PROFILE ####[address] [place] [address] Potassium molar conc 3.9 mmol/L Normal 3.6 - 5.0 [facility] Comment on above: Performed By: #### B MP, LIVER PROFILE ####[address] [place] [address] Sodium 139 mmol/L Normal 135 - 145 [facility] Comment on above: Performed By: #### B MP, LIVER PROFILE ####[address] [place] [address] Urea nitrogen 20 mg/dL High 7 - 17 [facility] Comment on above: Performed By: #### B MP, LIVER PROFILE ####[address] [place] [address] CBC W Auto Differentialon Abs Neut # 9.0 10 X 3/mm High 1.8 - 7.7 [facility] Comment on above: Performed By: #### C BC Auto Diff ####[address] [place] [address] Basophils/100 WBC Auto (Bld) 1 % High 0 - 1 [facility] Comment on above: Performed By: #### C BC Auto Diff ####[address] [place] [address] Eosinophils 0.1 10 X 3/mm Normal 0.0 - 0.5 [facility] Comment on above: Performed By: #### C BC Auto Diff ####[address] [place] [address] Eosinophils/100 leukocytes 1 % Normal 0 - 5 [facility] Comment on above: Performed By: #### C BC Auto Diff ####[address] [place] [address] Erythrocyte distribution width Auto Ratio (RBC) 15.1 % High 11.5 - 14.5 [facility] Comment on above: Performed By: #### C BC Auto Diff ####[address] [place] [address] Erythrocytes (RBC) 4.28 10 X 6/mm Normal 4.20 - 5.40 [facility] Comment on above: Performed By: #### C BC Auto Diff ####[address] [place] [address] Hematocrit (HCT) 36.3 % Normal 36.0 - 47.0 [facility] Comment on above: Performed By: #### C BC Auto Diff ####[address] [place] [address] Hemoglobin mass conc (Bld) 12.4 g/dL Normal 12.0 - 16.0 [facility] Comment on above: Performed By: #### C BC Auto Diff ####[address] [place] [address] Lymphocytes 2.3 10 X 3/mm Normal 1.0 - 4.0 [facility] Comment on above: Performed By: #### C BC Auto Diff ####[address] [place] [address] Lymphocytes/100 leukocytes 19 % Low 20 - 40 [facility] Comment on above: Performed By: #### C BC Auto Diff ####[address] [place] [address] MCH 29.0 pg Normal 27.0 - 35.0 [facility] Comment on above: Performed By: #### C BC Auto Diff ####[address] [place] [address] MCHC mass conc (RBC) 34.2 g/dL Normal 32.0 - 36.0 [facility] Comment on above: Performed By: #### C BC Auto Diff ####[address] [place] [address] MCV 84.9 fL Normal 80.0 - 100.0 [facility] Comment on above: Performed By: #### C BC Auto Diff ####[address] [place] [address] Monocytes/100 leukocytes 6 % Normal 1 - 15 [facility] Comment on above: Performed By: #### C BC Auto Diff ####[address] [place] [address] Neutrophils/100 WBC Auto (Bld) 74 % High 50 - 70 [facility] Comment on above: Performed By: #### C BC Auto Diff ####[address] [place] [address] Platelet mean volume (PMV) 8.0 fL Normal 7.5 - 11.5 [facility] Comment on above: Performed By: #### C BC Auto Diff ####[address] [place] [address] Platelets 454 uLx10 High 150 - 450 [facility] Comment on above: Performed By: #### C BC Auto Diff ####[address] [place] [address] WBC (Leukocytes) 12.2 10 X 3/mm High 3.7 - 11.0 [facility] Comment on above: Performed By: #### C BC Auto Diff ####[address] [place] [address] CT BRAIN WOon 02-06-2017 Thyroid stimulating hormone [...] signed by: Dr. Zaire Babcock [facility] CT CERVICAL SPINE WOon 02-06 CT CERVICAL [...] signed by: Dr. Mahamed King [facility] CT SINUS/FACIAL WOon 017 CT SINUS/FACIAL WO [...] signed by: Dr. Hal Ayoub [facility] Hepatic Function Panelon Alanine aminotransferase (ALT) 30 U/L Normal 7 - 52 [facility] Comment on above: Performed By: #### B MP, LIVER PROFILE ####[address] [place] [address] Albumin 3.8 g/dL Normal 3.5 - 5.0 [facility] Comment on above: Performed By: #### B MP, LIVER PROFILE ####[address] [place] [address] Alkaline phosphatase (ALP) 63 U/L Normal 38 - 126 [facility] Comment on above: Performed By: #### B MP, LIVER PROFILE ####[address] [place] [address] Aspartate aminotransferase (AST) 22 U/L Normal 14 - 36 [facility] Comment on above: Performed By: #### B MP, LIVER PROFILE ####[address] [place] [address] Bilirubin (direct) 0.0 mg/dL Normal 0.0 - 0.2 [facility] Comment on above: Performed By: #### B MP, LIVER PROFILE ####[address] [place] [address] Bilirubin (total) 0.8 mg/dL Normal 0.2 - 1.3 [facility] Comment on above: Performed By: #### B MP, LIVER PROFILE ####[address] [place] [address] Protein 6.9 g/dL Normal 6.3 - 8.2 [facility] Comment on above: Performed By: #### B MP, LIVER PROFILE ####[address] [place] [address] PT/INRon 07-15-2017 INR Coag RelTime (Bld) See Comments Normal [facility] Comment on above: Result Comment: [place] mmended [...] 2.5-3.5 Performed By: #### P T/INR, PTT ####[address] [address] INR Coag RelTime (PPP) 0.94 Normal 0.90 - 1.10 [facility] Comment on above: Performed By: #### P T/INR, PTT ####[address] [address] Prothrombin time (PT) Coag time (PPP) 12.6 s Normal [facility] Comment on above: Performed By: #### P T/INR, PTT ####[address] [address] Troponin I, Extra Sensitiveo n 02-06-2017 Troponin I.cardiac mass conc ng/mL Normal 0.000 - 0.034 [facility] Comment on above: Result Comment: Limi t of Detection: <0.012 ng/mLAt Risk of Myocardial Damage: 0.012-0.034 ng/mLProbable Myocardial Damage: >0.034 ng/mL Performed By: #### T ROPONIN I ####[address] [address] hCG, Qualitative-Serumon Internal Control ACCEPTABLE Normal [facility] Comment on above: Performed By: #### H CG,QUAL SERUM ####[address] [place] [address] hCG, Qualitative-Serum Negative Normal NEGATIVE [facility] Comment on above: Performed By: #### H CG,QUAL SERUM ####[facility] [place] [address] Vital Signs Date Time Vital Sign Value Performing Clinician Facility 09-18-2024 13:47-0500 Body mass index (BMI) [Ratio] 31.92 kg/m2 Loraine OLIVO Work Phone: [facility] 09-18-2024 13:47-0500 Body weight 87 kg Loraine OLIVO Work Phone: [facility] 09-18-2024 13:47-0500 Diastolic blood pressure 76 mm[Hg] Loraine OLIVO Work Phone: [facility] 09-18-2024 13:47-0500 Systolic blood pressure 116 mm[Hg] Loraine OLIVO Work Phone: [facility] 09-08-2024 15:52-0500 Body height 165.1 cm [facility] 09-08-2024 15:52-0500 Body mass index (BMI) [Ratio] 58.6 kg/m2 [facility] 09-08-2024 15:52-0500 Body temperature 98.9 [degF] [facility] 09-08-2024 15:52-0500 Body weight 160 kg [facility] 09-08-2024 15:52-0500 Diastolic blood pressure 78 mm[Hg] [facility] 09-08-2024 15:52-0500 Heart rate 105 /min [facility] 09-08-2024 15:52-0500 Respiratory rate 18 /min [facility] 09-08-2024 15:52-0500 SaO2% (BldA) [Mass fraction] 97 % [facility] 09-08-2024 15:52-0500 Systolic blood pressure 120 mm[Hg] [facility] 08-21-2024 13:18-0500 Body mass index (BMI) [Ratio] 31.12 kg/m2 Eric Elayne DO Work Phone: [facility] 08-21-2024 13:18-0500 Body weight 84.82 kg Eric Elayne DO Work Phone: [facility] 08-21-2024 13:18-0500 Diastolic blood pressure 70 mm[Hg] Eric Elayne DO Work Phone: [facility] 08-21-2024 13:18-0500 Systolic blood pressure 120 mm[Hg] Eric Elayne DO Work Phone: [facility] 07-21-2024 11:10-0500 Body mass index (BMI) [Ratio] 29.45 kg/m2 [facility] Nurse [facility] 07-21-2024 11:10-0500 Body weight 80.29 kg [facility] Nurse [facility] 07-21-2024 11:10-0500 Diastolic blood pressure 76 mm[Hg] [facility] Nurse [facility] 07-21-2024 11:10-0500 Systolic blood pressure 124 mm[Hg] [facility] Nurse [facility] 06-08-2024 10:32-0500 Body height 165.1 cm [facility] 06-08-2024 10:32-0500 Body mass index (BMI) [Ratio] 29.1 kg/m2 [facility] 06-08-2024 10:32-0500 Body temperature 97.5 [degF] [facility] 06-08-2024 10:32-0500 Body weight 79.37 kg [facility] 06-08-2024 10:32-0500 Diastolic blood pressure 89 mm[Hg] [facility] 06-08-2024 10:32-0500 Heart rate 93 /min [facility] 06-08-2024 10:32-0500 Respiratory rate 18 /min [facility] 06-08-2024 10:32-0500 SaO2% (BldA) [Mass fraction] 98 % [facility] 06-08-2024 10:32-0500 Systolic blood pressure 130 mm[Hg] [facility] 04-21-2024 13:40-0400 Body height 165.1 cm [facility] 04-21-2024 13:40-0400 Body mass index (BMI) [Ratio] 28.1 kg/m2 [facility] 04-21-2024 13:40-0400 Body temperature 99.4 [degF] [facility] 04-21-2024 13:40-0400 Body weight 76.82 kg [facility] 04-21-2024 13:40-0400 Diastolic blood pressure 84 mm[Hg] [facility] 04-21-2024 13:40-0400 Heart rate 85 /min [facility] 04-21-2024 13:40-0400 Respiratory rate 18 /min [facility] 04-21-2024 13:40-0400 SaO2% (BldA) [Mass fraction] 99 % [facility] 04-21-2024 13:40-0400 Systolic blood pressure 126 mm[Hg] [facility] 12-22-2023 18:07-0400 Body height 165.1 cm [facility] 12-22-2023 18:07-0400 Body mass index (BMI) [Ratio] 27.8 kg/m2 [facility] 12-22-2023 18:07-0400 Body temperature 98.7 [degF] [facility] 12-22-2023 18:07-0400 Body weight 75.74 kg [facility] 12-22-2023 18:07-0400 Heart rate 84 /min [facility] 12-22-2023 18:07-0400 Respiratory rate 18 /min [facility] 12-22-2023 18:07-0400 SaO2% (BldA) [Mass fraction] 99 % [facility] Encounters Encounter Date Encounter Type Care Provider Facility Start: 10-09-2024 End: 10-09-2024 ambulatory ERIC HOLLY Not Available Start: 09-18-2024 End: 09-18-2024 Bamboo flowseulalia OLIVO Work Phone: [facility] Start: 09-18-2024 End: 09-25-2024 Eliana flowseulalia OLIVO Work Phone: [facility] Start: 09-18-2024 End: 09-25-2024 Clinisync Result Encounter Loraine OLIVO Work Phone: [facility] Unsolicited Start: 09-18-2024 End: 09-19-2024 External Result Encounter Loraine Costellodorene OLIVO Work Phone: [facility] Unsolicited Start: 09-18-2024 End: 09-18-2024 Patient encounter procedure Loraine OLIVO Work Phone: [facility] Work Phone: Start: 09-18-2024 End: 09-18-2024 Periodic preventive med est patient 18-39 yrs Loraine OLIVO Work Phone: [facility] Comment on above: Well woman exam with routine gynecological exam; Second trimester ; 18 weeks gestation of ; Vaginal discharge; STD exposure; Screening, , for anatomic survey; Sinusitis, unspecified chronicity, unspecified location Start: 09-18-2024 End: 09-18-2024 ambulatory LORAINE HILLMAN Not Available Start: 09-08-2024 End: 09-08-2024 ambulatory [facility] Work Phone: Start: 09-08-2024 End: 09-08-2024 Patient encounter procedure [facility] Work Phone: Start: 09-06-2024 End: 09-08-2024 Clinisync Result Encounter Eric Elayne DO Work Phone: [facility] Unsolicited Start: 09-06-2024 End: 09-08-2024 Clinisync Result Encounter Eric Elayne DO Work Phone: [facility] Unsolicited Start: 08-21-2024 End: 08-21-2024 Bamboo flowsheet Eric Elayne DO Work Phone: [facility] Start: 08-21-2024 End: 08-21-2024 Bamboo flowsheet Eric Elayne DO Work Phone: [facility] Start: 08-21-2024 End: 08-21-2024 Office outpatient visit 15 minutes Eric Elayne DO Work Phone: [facility] Comment on above: 14 weeks gestation o f ; Second trimester ; Tinea pedis, unspecified laterality; History of pre-eclampsia; History of anemia Start: 08-21-2024 End: 08-21-2024 ambulatory ERIC ELAYNE Not Available Start: 08-15-2024 End: 08-15-2024 Clinisync Result Encounter Eric Elayne DO Work Phone: [facility] Unsolicited Start: 08-15-2024 End: 08-15-2024 Clinisync Result Encounter Eric Elayne DO Work Phone: [facility] Unsolicited Start: 07-21-2024 End: 07-21-2024 ambulatory [facility] Elayne Nurse [facility] Comment on above: GA: 10w0d Start: 06-08-2024 End: 06-08-2024 ambulatory [facility] Work Phone: Start: 06-08-2024 End: 06-08-2024 Patient encounter procedure [facility] Work Phone: Start: 04-21-2024 End: 04-21-2024 ambulatory [facility] Work Phone: Start: 04-21-2024 End: 04-21-2024 Patient encounter procedure [facility] Work Phone: Start: 12-22-2023 End: 12-22-2023 ambulatory [facility] Work Phone: Start: 12-22-2023 End: 12-22-2023 Patient encounter procedure [facility] Work Phone: Start: 12-01-2022 ambulatory Facility:[facility] Start: 08-24-2022 End: 08-25-[address] MECHE LE Facility:[facility] Start: 08-19-2022 End: 08-19-[address] ERIC HOLLY Facility:[facility] Start: 07-30-2022 End: 07-30-2022 ambulatory LEANDRO VERDUZCO Facility:[facility] Start: 03-11-2022 End: 03-11-[address] ERIC HOLLY Facility:[facility] Start: 11-23-2021 End: 11-23-2021 ambulatory LEANDRO VERDUZCO Facility:[facility] Start: 02-07-2017 End: 02-07-2017 Ambulatory ALTA GOODRICH [facility] Start: 02-06-2017 End: 02-07-2017 Emergency department patient visit IBRAHIMA WARE Facility:[facility] Procedures Date Procedure Procedure Detail Performing Clinician Start: 09-18-2024 RECURRENT VAGINITIS (HTRX) Loraine OLIVO Work Phone: Start: 09-18-2024 Urnls dip stick/tabl et rgnt non-auto w/o micrscp Loraine OLIVO Work Phone: Start: 09-18-2024 IGP,APTIMA HPV,AGE GDLN Loraine OLIVO Work Phone: Start: 09-06-2024 AFP, SERUM, OPEN SPI NA BIFIDA Eric Elayne DO Work Phone: Start: 08-21-2024 Urnls dip stick/tabl et rgnt non-auto w/o micrscp Eric Elayne DO Work Phone: Start: 08-15-2024 ALL CBC WITH AUTO DIFF Eric Elayne DO Work Phone: Start: 07-21-2024 Urnls dip stick/tabl et rgnt non-auto w/o micrscp Eric Elayne DO Work Phone: Start: 06-08-2024 Quick Strep (POC) Start: 04-21-2024 Quick Strep (POC) Start: 12-22-2023 Quick Strep (POC) Start: 02-07-2017 IP CONSULT TO ORTHOP EDIC SURGERY ALTA ESTRADA PRICILA Start: 02-07-2017 NURSING COMMUNICATION P AUSrinivasan GOODRICH [...] [facility] [address] [place] [id number] Eric Holly, DO [address] [place] [address] [facility] Start: 09-18-2024 End: 03-18-2025 Alpha fetoprotein, maternal Alpha fetoprotein, maternal Lab Routine Second trimester 18 weeks gestation of Expected: 09/18/2024 (Approximate), Expires: 03/18/2025 [facility] Comment on above: Expected: 09/18/2024 (Approximate), Expires: 03/18/2025 Start: 09-18-2024 End: 09-18-2025 US for US OB 14+ weeks anatomy scan Imaging Routine Screening, , for anatomic survey Expected: 09/18/2024, Expires: 09/18/2025 [facility] Comment on above: Expected: 09/18/2024 , [...] Expected: 07/21/2024 (Approximate), Expires: 07/21/2025 [facility] Work Phone: Comment on above: Expected: 07/21/2024 (Approximate), Expires: 07/21/2025 Start: 07-21-2024 End: 07-21-2025 Drugs of abuse panel - Urine by Screen method Rapid drug screen, urine Lab Routine , unspecified gestational age Encounter for supervision of normal first in first trimester Expected: 07/21/2024 (Approximate), Expires: 07/21/2025 [facility] Comment on above: Expected: 07/21/2024 (Approximate), Expires: 07/21/2025 Start: 07-21-2024 End: 07-21-2025 US Pelvis transvaginal US OB transvaginal Imaging Routine Missed menses Expected: 07/21/2024 (Approximate), Expires: 07/21/2025 [facility] Comment on above: Expected: 07/21/2024 (Approximate), Expires: 07/21/2025 Bacteria identified in Urine by Culture Urine culture Microbiology Routine Missed menses Ordered: 07/21/2024 [facility] Comment on above: Ordered: 07/21/2024 CBC W Auto Different ial panel - Blood CBC and differential Lab Routine Missed menses , unspecified gestational age Ordered: 07/21/2024 [facility] Comment on above: Ordered: 07/21/2024 CHLAMYDIA TRACHOMATI S (GENITO/STI) CHLAMYDIA TRACHOMATIS (GENITO/STI) Lab Routine STD exposure Ordered: 09/18/2024 [facility] Comment on above: Ordered: 09/18/2024 Cytology Cervical or vaginal smear or scraping study Pap Smear Pathology and Cytology Routine Well woman exam with routine gynecological exam Ordered: 09/18/2024 [facility] Comment on above: Ordered: 09/18/2024 Hemoglobin A1c/Hemoglobin.total in Blood Hemoglobin A1c Lab Routine Missed menses , unspecified gestational age Ordered: 07/21/2024 [facility] Comment on above: Ordered: 07/21/2024 Hepatitis B virus surface Ag [Presence] in Serum or Plasma by Immunoassay Hepatitis B surface antigen Lab Routine Missed menses , unspecified gestational age Ordered: 07/21/2024 [facility] Comment on above: Ordered: 07/21/2024 Hepatitis C virus Ab [Presence] in Serum or Plasma by Immunoassay Hepatitis C antibody Lab Routine Missed menses , unspecified gestational age Ordered: 07/21/2024 [facility] Comment on above: Ordered: 07/21/2024 HIV-1/HIV-2 antigen/antibody combination immunoassay HIV-1 and HIV-2 antibodies Lab Routine Missed menses , unspecified gestational age Ordered: 07/21/2024 [facility] Comment on above: Ordered: 07/21/2024 Human papilloma viru s DNA [Presence] in Unspecified specimen by Probe with amplification HPV DNA probe, amplified Microbiology Routine Well woman exam with routine gynecological exam Ordered: 09/18/2024 [facility] Comment on above: Ordered: 09/18/2024 Neisseria gonorrhoea e DNA [Presence] in Unspecified specimen by JESS with probe detection Neisseria gonorrhea DNA probe, direct Lab Routine STD exposure Ordered: 09/18/2024 [facility] Comment on above: Ordered: 09/18/2024 Reagin Ab [Presence] in Serum by RPR RPR Lab Routine Missed menses , unspecified gestational age Ordered: 07/21/2024 [facility] Comment on above: Ordered: 07/21/2024 Rubella antibody, IgG Rubella an tibody, IgG Lab Routine Missed menses , unspecified gestational age Ordered: 07/21/2024 [facility] Comment on above: Ordered: 07/21/2024 SURESWAB(R) ADVANCED VAGINITIS PLUS, TMA SURESWAB(R) ADVANCED VAGINITIS PLUS, TMA Pathology and Cytology Routine Vaginal discharge Ordered: 09/18/2024 [facility] Work Phone: Comment on above: Ordered: 09/18/2024 Payers Date Payer Category Payer Medicaid [employer] [place] [id number] 2022 Medicaid [id number] 2019 Unknown [id number] 2017 Unknown 2014 Unknown [id number] 1990 Unknown [id number] 1990 Unknown [id number] 2..[id number]. 1990 Unknown [id number] [id number]. 1990 Unknown [id number] 2..[id number]. 1990 Unknown [id number] [id number] 1990 Unknown [id number] 1990 Unknown [id number] [id number] 1990 Unknown [id number] [id number] 1990 Unknown [id number] [id number] 1990 Unknown [id number] 1959 Unknown [id number] Unknown MMO [id number] Social History Date Type Detail Facility Start: 03-31-2023 End: 08-11-2023 Tobacco smoking status NHIS Never smoked tobacco (finding) [facility] Start: 1990 Sex Assigned At Female F [facility] Start: 06-08-2024 End: 09-08-2024 Sex Female (finding) [facility] Start: 03-31-2023 Tobacco use and exposure Smokeless [...] illness Narrative Reason for Appointment: Patient ID: Abram Villarreal is a 33 y.o. female who [...] nursing note reviewed. Exam conducted with a sales account representative present. Vitals: Estimated body mass index is [...] History of Present illness Narrative 08-21-2024 Roxana Garcia LPN - 08/21/2024 1:10 PM EST Note Date & Type Note Facility 08-21-2024 History of Presen t illness Narrative Reason for Appointment: Patient ID: Abram Villarreal is a 33 y.o. female who [...] or undercooked meat, and stay away from [facility]. Patient has been consulted regarding any [...] by Roxana Garcia LPN on behalf of: Eric Holly DO documented in this encounter [facility] History of Present illness Narrative 07-21-2024 Keiko Bruce MA - 07/21/2024 10:30 AM EST Note Date & Type Note Facility 07-21-2024 History of Presen t illness Narrative Reason for Appointment: Patient ID: Abram Villarreal is a 33 y.o. female who [...] or undercooked meat, and stay away from [facility]. Patient has also been advised to [...] Keiko Bruce MA documented in this encounter [facility] Evaluation note 04-21-2024 Note Date & Type Note Facility 04-21-2024 Evaluation note Diagnosis Onset Date Resolution Acute right otitis media acute April 21, 2024 1:26pm Viral URI acute June 08, 2024 9:51am [facility] Work Phone: Evaluation note Note Date & Type Note Facility Evaluation note Diagnosis Onset Date Strep throat acute [facility] Work Phone: Evaluation note Note Date & Type Note Facility Evaluation note Diagnosis Onset Date Acute right otitis media acu te [facility] Work Phone: Evaluation note Note Date & Type Note Facility Evaluation note Diagnosis Missed menses , unspecified gestational age Encounter for supervision of normal first in first trimester documented in this encounter [facility] Evaluation note Note Date & [...] with cough acute Febr uary 2024 3:37pm [facility] Work Phone: Evaluation note Note Date & Type Note Facility Evaluation note Diagnosis Well woman exam with routine gynecological exam Routine gynecological examination Second trimester state, incidental 18 weeks gestation of Vaginal discharge Leukorrhea, not specified as infective STD exposure Screening, , for anatomic survey Encounter for anatomic survey Sinusitis, unspecified chronicity, unspecified location documented in this encounter [facility] Healthcare Summary Purpose Family History No Family [...] section and content) DATE CREATED AUTHOR 01/19/2018 [facility] DATE CREATED AUTHOR AUTHOR'S ORGANIZ ATION 01/19/2018 [facility] DATE CREATED AUTHOR AUTHOR'S ORGANIZ ATION 08/26/2022 [facility] DATE CREATED AUTHOR AUTHOR'S ORGANIZ ATION 12/02/2022 [facility] DATE CREATED AUTHOR AUTHOR'S ORGANIZ ATION 10/10/2024 [facility] Care Teams (unrecognized sec tion and content) [...] June 08, 2024 End: June 08, 2024 Document Review Specialist Relationship Specialty Start Date End Date Cuco Munoz MD [address] [place] [address] PCP - General Family Medicine 06/24/23 Document Review Specialist Relationship Specialty Start Date End Date Cuco Munoz MD [address] [facility] [place] [address] PCP - General Family Medicine 06/24/23 Document Review Specialist Relationship Specialty Start Date End Date Cuco Munoz MD [address] [facility], [place] [id number] PCP - General Family Medicine 06/24/23 Document Review Specialist Relationship Specialty Start Date End Date Cuco Munoz MD [address] [facility], [place] [id number] PCP - General Family Medicine 06/24/23 Team Status: Inactive Member Role Status Dates Violet Cerda NP-C Primary Care Provider Active Start: September 08, 2024 End: September 08, 2024 VI Nevarez Active Start: August End: September 08, 2024 Mayte Joiner APRN Attending Provider Active Start: September 08, 2024 End: September 08, 2024 Document Review Specialist Relationship Specialty Start Date End Date Cuco Munoz MD [address] [facility], [place] [id number] PCP - General Family Medicine 06/24/23 Document Review Specialist Relationship Specialty Start Date End Date Cuco Munoz MD [address] [facility], [place] [id number] PCP - General Family Medicine 06/24/23 Document Review Specialist Relationship Specialty Start Date End Date Cuco Munoz MD [address] [facility], [place] [id number] PCP - General Family Medicine 06/24/23 Goals [...] BE BASED ON THE PRIMARY CLINICAL RECORDS. [facility] exoro system [facility]. provides no warranty or guarantee of the accuracy or completeness of information in this document.
== END 2024-10-27 16:53 | disposition home or self-care (01) ==
LOC: US 16:52
PROVIDERS: Visit Provider Obstetrics & Gynecology
DX: Z36.2 Encounter for other antenatal screening follow-up (principal)
CPT/HCPCS: 76815

== ENCOUNTER 2024-11-16 19:05 | Observation (INO) | payer MEDICAID, SELFPAY ==
[2024-11-16] VITALS (7 sets, daily range): BP systolic 134–165; BP diastolic 78–97; PULSE 100–113
[2024-11-16 20:12] LABS: Bilirubin Urine NEGATIVE (NEGATIVE); Blood Urine NEGATIVE (NEGATIVE); Clarity Urine CLEAR (CLEAR); Color Urine LT. YELLOW (YELLOW); Glucose Urine UA NEGATIVE (NEGATIVE); Ketones Urine NEGATIVE (NEGATIVE); Leukocyte Esterase Urine NEGATIVE (NEGATIVE); Nitrite Urine NEGATIVE (NEGATIVE); Protein Urine NEGATIVE (NEG/TRACE); Urine Microscopic Indicated NO; Urobilinogen Urine 0.2 EU/dL (0.2-1.0)
== END 2024-11-16 20:25 | disposition home or self-care (01) ==
LOC: FBC 19:07
PROVIDERS: Admitting Provider Obstetrics & Gynecology; Visit Provider Obstetrics & Gynecology
DX: O36.8120 Decreased fetal movements, second trimester, not applicable or unspecified (principal); Z3A.26 26 weeks gestation of pregnancy
CPT/HCPCS: 59025; 81003; 84112; G0378; G0379

== ENCOUNTER 2024-11-23 09:34 | Outpatient (OUT) | payer MEDICAID, SELFPAY ==
[2024-11-23 10:47] LABS: Basophils Absolute Auto 0.1 10^3/uL (0.0-0.1); Basophils Percent Auto 0.6 % (0.2-2.0); Eosinophils Absolute Auto 0.2 10^3/uL (0.0-0.7); Eosinophils Percent Auto 1.7 % (0.9-7.0); Immature Granulocytes Abs Auto 0.08 10^3/uL (0.00-0.03); Immature Granulocytes Pct Auto 0.9 % (0.0-0.5); Lymphocytes Absolute Auto 1.3 10^3/uL (1.2-3.8); Mean Corpuscular HGB Conc 33.3 g/dL (29.9-35.2); Mean Corpuscular Hemoglobin 27.9 pg (26.7-34.0); Mean Corpuscular Volume 83.8 fL (81.0-99.0); Monocytes Absolute Auto 0.6 10^3/uL (0.3-0.8); Monocytes Percent Auto 6.5 % (1.7-12.0); Neutrophils Absolute Auto 6.9 10^3/uL (1.4-6.5); Neutrophils Percent Auto 76.3 % (43.0-75.0); Platelet Count 417 10^3/uL (150-450); Red Blood Count 3.58 10^6/uL (4.20-5.40); Red Cell Distribution Width 13.4 % (11.0-15.0)
[2024-11-23 11:30] LABS: Glucose 1 Hour 191 mg/dL (<130)
== END 2024-11-23 09:35 | disposition home or self-care (01) ==
LOC: LAB 09:35
PROVIDERS: Visit Provider Obstetrics & Gynecology
DX: Z13.1 Encounter for screening for diabetes mellitus (principal)
CPT/HCPCS: 36415; 82950; 85025

== ENCOUNTER 2024-12-27 15:58 | Outpatient (OUT) | payer MEDICAID, SELFPAY ==
--- NOTE | 2024-12-27 16:00 | US_ITS ---
[facility] [place] [id number] Patient Name: ABRAM NELSON MRN: [id number] date: 1990 Sex: F Assigned Patient Location: US Current Patient Location: Accession/Order Number: [id number] Exam Date: 12/27/2024 19:33 Report Date: 12/27/2024 19:37 At the request of: KERMIT MG DO Procedure: US OB growth Ultrasound biophysical profile HISTORY: Gestational diabetes Adequate breathing movement, gross body movement, tone and amniotic fluid volume for total score of 8 out of 8. The amniotic fluid index is 16.6cm within normal limits. The heart rate 140 bpm. US/US OB growth IMPRESSION: Adequate ultrasound biophysical profile Impression dictated by: David Chaudhari M.D. 12/27/2024 7:37 PM Dictation Location: [facility] [employer] Electronically authenticated by: [id number] Y Date: 12/27/2024 19:37
--- NOTE | 2024-12-27 16:00 | US_ITS ---
[facility] [place] [id number] Patient Name: ABRAM NELSON MRN: [id number] date: 1990 Sex: F Assigned Patient Location: US Current Patient Location: Accession/Order Number: [id number] Exam Date: 12/27/2024 19:33 Report Date: 12/27/2024 19:37 At the request of: KERMIT MG DO Procedure: US OB growth Ultrasound biophysical profile HISTORY: Gestational diabetes Adequate breathing movement, gross body movement, tone and amniotic fluid volume for total score of 8 out of 8. The amniotic fluid index is 16.6cm within normal limits. The heart rate 140 bpm. US/US OB BPP w non-stress IMPRESSION: Adequate ultrasound biophysical profile Impression dictated by: David Chaudhari M.D. 12/27/2024 7:37 PM Dictation Location: [facility] Electronically authenticated by: [id number] Y Date: 12/27/2024 19:37
[2024-12-27 16:04] VITALS: BP 131/80; PULSE 92
== END 2024-12-27 17:05 | disposition home or self-care (01) ==
LOC: US 15:59 → FBC 16:00
PROVIDERS: Visit Provider Obstetrics & Gynecology
DX: O24.419 Gestational diabetes mellitus in pregnancy, unspecified control (principal)
CPT/HCPCS: 76816; 76818

== ENCOUNTER 2024-12-30 11:30 | Outpatient (OUT) | payer MEDICAID, SELFPAY ==
--- OUTSIDE RECORDS SUMMARY | 2024-12-30 11:33 | XMS_ITS | CCD ---
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 chambered heart, right ventricular outflow track and left ventricular outflow track. US/US OB incomplete anatomy IMPRESSION: Visualization of four-chamber heart and right and left ventricular outflow tracts. Impression dictated by: David Chaudhari M.D.10/27/2024 7:11 PM Dictation Location: [place] [address] Electronically authenticated by: [id number] Y Date: 10/27/2024 19:11 Dictated By: David Chaudhari D.O. Signed By: 10/27/241913 DD/ 1911 TD/TT: Floor Winder: [facility] Radiology Study observation (narrative) [facility] US OB INCOMPLETE ANATOMYOrde red By: Radiologist Radiology on 10-27-2024 [facility] Work Phone: IGP,APTIMA HPV,AGE GDLNon AGE GDLN ACOG TESTING Note . [facility] Comment on above: TESTS RESULT FLAG UN ITS REF RANGE LAB Clinician Provided Cytology Information Source.............Cervix Other.............. No. of containers..01 ThinPrep Vial Age Algo ACOG Alondra... 30-65 01 FLAG LEGEND: L-Low Normal,H-High Normal,LL-Alert Low,HH-Alert High <-Panic Low,>-Panic High,A-Abnormal,AA-Critical Abnormal Performed at: 01 =G [facility] [place] [address] Lisa Melton MD, HPV APTIMA Positive Abnormal Negative [facility] Comment on above: This nucleic acid am plification test detects fourteen high- risk HPV types (16,18,31,33,35,39,45,51,52,56,58,59,66,68) without differentiation. HPV GENOTYPE 16 Negative Negative [facility] HPV GENOTYPE 18,45 Negative Negative [facility] Comment on above: Performed at: =G - [facility] [address], [place] [id number] Director Of Accounts Payable: Lisa Melton MD, Phone: [phone] Performed at: [address] [id number] Director Of Accounts Payable: Lisa Melton MD, Phone: [phone] IGP, APTIMA HPV, RFX 16/18,45 Note . [facility] Comment on above: TESTS RESULT FLAG UN ITS REF RANGE LAB DIAGNOSIS: 02 NEGATIVE FOR INTRAEPITHELIAL LESION OR MALIGNANCY. Specimen adequacy: 02 Satisfactory for evaluation. Endocervical and/or squamous metaplastic cells (endocervical component) are present. Performed by: Neri Knowles [employer] Developer (ASCP) . 02 Note: Note 02 The [...] High <-Panic Low,>-Panic High,A-Abnormal,AA-Critical Abnormal Performed at: [facility] [address] [place] [address] Lisa Melton MD, Interpretation and review of laboratory results Abnormal [facility] SPATULA-ALONE CERVIX [facility] RECURRENT VAGINITIS (HTRX)on 09-19-2024 ATOPOBIUM VAGINAE 0 [facility] ATOPOBIUM VAGINAE Not detected [facility] BVAB 2,3 (BACTERIAL VAGINOSIS ASSOCIATED BACTERIA 2, 3); MOBILUNCUS SPP 0 [facility] BVAB 2,3 (BACTERIAL VAGINOSIS ASSOCIATED BACTERIA 2, 3); MOBILUNCUS SPP Not detected [facility] KELSEY ALBICANS, PARAPSILOSIS, TROPICALIS 0 [facility] KELSEY ALBICANS, PARAPSILOSIS, TROPICALIS Not detected [facility] GLABRATA 0 [facility] KELSEY GLABRATA Not detected [facility] KELSEY KRUSEI 0 [facility] KELSEY KRUSEI Not detected [facility] CHLAMYDIA TRACHOMATIS 0 [facility] CHLAMYDIA TRACHOMATIS Not detected N [facility] GARDNERELLA VAGINALIS 0 [facility] GARDNERELLA VAGINALIS Not detected N [facility] MEGASPHAERA (TYPES 1, 2) 0 [facility] MEGASPHAERA (TYPES 1, 2) Not detected [facility] MYCOPLASMA GENITALIUM 0 [facility] S [facility] MYCOPLASMA GENITALIUM Not detected N [facility] NEISSERIA GONORRHOEAE 0 [facility] NEISSERIA GONORRHOEAE Not detected N [facility] TRICHOMONAS VAGINALIS 0 [facility] TRICHOMONAS VAGINALIS Not detected [facility] Urinalysis macro (dipstick) panel (U)on 09-18-2024 Bilirubin, UA Negative Negative - 4(70) +++ mg/dL [facility] Blood, UA Negative Negative - 50 Oscar/mcL [facility] Clarity, UA Clear [facility] Color, UA Yellow [facility] Glucose, UA Negative Negative - 1999(110) ++++ mg/dL [facility] Interpretation and review of laboratory results Normal [facility] Ketones, UA Negative Negative - 160(16) ++++ mg/dL [facility] Leukocytes, UA Negative Negative - 500+++ Mike/mcL [facility] Nitrite, UA Negative Negative - Positive [facility] pH, UA 6.5 5 - 9 [facility] Protein, UA Negative Negative - 1999(20) ++++ mg/dL [facility] Spec Grav, UA 1.025 1 - 1.03 [facility] Urobilinogen, UA 1.0 0.2 - 12 mg/dL [facility] AFP, SERUM, OPEN SPINA BIFID Aon 09-08-2024 AFP MOM 1.72 . [facility] AFP VALUE 54.2 ng/mL . [facility] COMMENT: Comment . [facility] Comment on above: Oksana Blank , Ph.D., [facility] Director References: Available Upon Request. Multiples Of Median Cutoffs For AFP Elevations Grant 2.5 Black 2.8 IDD 2.0 Twins 4.5 Abbreviation Definitions IDD - Insulin Dep Diabetes OSBR - Open Spina Bifida Risk For further inquiries contact [employer] at [phone]. This test was developed and its performance characteristics determined by [employer]. It has not been cleared or approved by the Food and Drug Administration. Performed at: [facility] [address] [place], [place] [id number] Director Of Accounts Payable: Christ Rodas [facility], Phone: [phone] GEST. AGE ON COLLECTION DATE 16.7 . weeks [facility] GESTAT. AGE BASED ON Ultrasound . [facility] Comment on above: 14.4 on 08/21/2024 Recalculations are not recommended when gestational dating by LMP and ultrasound are within 10 days. INSULIN DEP DIABETES No . [facility] INTERPRETATION Comment . [facility] Comment on above: Interpretation: Scre en [...] Customer Services to discuss available options. The [employer] recommends amniocentesis be offered to women age 35 and older. [age] [facility] MULTIPLE GESTATION No . [facility] OSBR RISK 1 IN 155 . [facility] RACE . [facility] RESULTS Report . [facility] TEST RESULTS: Negative . [facility] WEIGHT 187 . lbs [facility] N N ULTRASOUND [id number] 3 14 N 1 187 N N N N N White/ [facility] Urinalysis macro (dipstick) panel (U)on 08-21-2024 Bilirubin, UA Negative Negative - 4(70) +++ mg/dL [facility] Blood, UA Negative Negative - 50 Oscar/mcL [facility] Clarity, UA Clear [facility] Color, UA Yellow [facility] Glucose, UA Negative Negative - 1999(110) ++++ mg/dL [facility] Interpretation and review of laboratory results Normal [facility] Ketones, UA Negative Negative - 160(16) ++++ mg/dL [facility] Leukocytes, UA Negative Negative - 500+++ Mike/mcL [facility] Nitrite, UA Negative Negative - Positive [facility] pH, UA 5.5 5 - 9 [facility] Protein, UA Negative Negative - 1999(20) ++++ mg/dL [facility] Spec Grav, UA 1.015 1 - 1.03 [facility] Urobilinogen, UA 0.2 0.2 - 12 mg/dL [facility] ALL CBC WITH AUTO DIFFon BASOPHILS ABSOLUTE AUTO 0.1 [facility] Basophils/100 WBC (Bld) 0.5 % 0.2 - 2.0 % [facility] Eosinophils/100 WBC (Bld) 1.6 % 0.9 - 7.0 % [facility] Erythrocyte distribution width (RBC) [Ratio] 14 % 11.0 - 15.0 % [facility] Hematocrit (Bld) [Volume fraction] 35.4 % Low 36.0 - 48.0 % [facility] Hemoglobin (Bld) [Mass/Vol] 12.2 g/dL 12.0 - 16.0 g/dL [facility] IMMATURE GRANULOCYTES ABS AUTO 0.05 High [facility] Immature granulocytes/100 WBC (Bld) 0.4 % 0.0 - 0.5 % [facility] Interpretation and review of laboratory results Abnormal [facility] LYMPHOCYTES ABSOLUTE AUTO 1.8 [facility] Lymphocytes/100 WBC (Bld) 14.4 % Low 20.5 - 60.0 % [facility] MCH (RBC) [Entitic mass] 31 pg 26.7 - 34.0 pg [facility] MCHC (RBC) [Mass/Vol] 34.5 g/dL 29.9 - 35.2 g/dL [facility] MCV (RBC) [Entitic vol] 90.1 fL 81.0 - 99.0 fL [facility] MONOCYTES ABSOLUTE AUTO 0.8 [facility] Monocytes/100 WBC (Bld) 5.9 % 1.7 - 12.0 % [facility] NEUTROPHILS ABSOLUTE AUTO 9.8 High [facility] Neutrophils/100 WBC (Bld) 77.2 % High 43.0 - 75.0 % [facility] Platelet mean volume (Bld) [Entitic vol] 10.3 fL 9.5 - 13.5 fL [facility] TBH EO # 0.2 [facility] TB PLT [address] [facility] RBC 3.93 Low [facility] WBC 12.7 High [facility] HCG ( test) Ql (U)o n 07-21-2024 Interpretation and review of laboratory results Abnormal [facility] Preg Test, Ur Positive Negative [facility] Urinalysis macro (dipstick) panel (U)on 07-21-2024 Bilirubin, UA Negative Negative - 4(70) +++ mg/dL [facility] Blood, UA Negative Negative - 50 Oscar/mcL [facility] Clarity, UA Clear [facility] Color, UA Yellow [facility] Glucose, UA Negative Negative - 1999(110) ++++ mg/dL [facility] Interpretation and review of laboratory results Normal [facility] Ketones, UA Negative Negative - 160(16) ++++ mg/dL [facility] Leukocytes, UA Negative Negative - 500+++ Mike/mcL [facility] Nitrite, UA Negative Negative - Positive [facility] pH, UA 6.5 5 - 9 [facility] Protein, UA Negative Negative - 1999(20) ++++ mg/dL [facility] Spec Grav, UA 1.015 1 - 1.03 [facility] Urobilinogen, UA 0.2 0.2 - 12 mg/dL [facility] No Panel InformationOrdered By: Mayte Joiner on 06-08-2024 Quick Strep (POC) [facility] No Panel InformationOrdered By: Ketty Jones on 04-21-2024 Quick Strep (POC) [facility] Quick Strep (POC) [facility] No Panel InformationOrdered By: Chaz Miller on 12-22-2023 Quick Strep (POC) [facility] US PELVISon 08-25-2022 US PELVIS EXAMINATION: US [...] The [facility] CHLAMYDIA/GONOCOCCUS JESS (SW AB/URINE/PAPon 08-23-2022 Chlamydia trachomatis, JESS Negative Normal Negative The [facility] Comment on above: Performed By: #### C BC #### [facility] Laboratory [address] [place] [address] Dr. Babar Marks Neisseria gonorrhoeae, JESS Negative Normal Negative The [facility] Comment on above: Performed By: #### C BC #### [facility] Laboratory [address] [place] [address] Dr. Babar Marks VAGINITIS/VAGINOSIS DNA PROB Tam 08-21-2022 Kelsey species Negative Normal Negative [facility] Comment on above: Performed By: #### V AGINT #### [facility] Laboratory [address] [place] [address] Dr. Babar Marks Gardnerella vaginalis Negative Normal Negative The [facility] Comment on above: Performed By: #### V AGINT #### [facility] Laboratory [address] [place] [address] Dr. Babar Marks Trichomonas vaginalis Negative Normal Negative The [facility] Comment on above: Performed By: #### V AGINT #### [facility] Laboratory [address] [place] [address] Dr. Babar Marks CBC AUTO DIFFon 07-30-2022 BASO # 0.1 103/ul Normal 0.0-0.[address] [facility] Comment on above: Performed By: #### C BC #### [facility] Laboratory [address] [place] [address] Dr. Babar Marks Basophils/100 WBC (Bld) 0.8 % Normal 0.2-2.[address] [facility] Comment on above: Performed By: #### C BC #### [facility] Laboratory [address] [place] [address] Dr. Babar Marks EO # 0.1 103/ul Normal 0.0-0.7 The [facility] Comment on above: Performed By: #### C BC #### [facility] Laboratory [address] [place] [address] Dr. Babar Marks Eosinophils/100 WBC (Bld) 1.4 % Normal 0.9-7.[address] [facility] Comment on above: Performed By: #### C BC #### [facility] Laboratory [address] [place] [address] Dr. Babar Marks Erythrocyte distribution width (RBC) [Ratio] 13.7 % Normal 11.0-15.[address] [facility] Comment on above: Performed By: #### C BC #### [facility] Laboratory [address] [place] [address] Dr. Babar Marks Hematocrit (Bld) [Volume fraction] 36.9 % Normal 36.0-48.[address] [facility] Comment on above: Performed By: #### C BC #### [facility] Laboratory [address] [place] [address] Dr. Babar Marks Hemoglobin (Bld) [Mass/Vol] 12.4 g/dL Normal 12.0-16.0 The [facility] Comment on above: Performed By: #### C BC #### [facility] Laboratory [address] [place] [address] Dr. Babar Marks IG # 0.03 10e3/ul Normal 0.00-0.[address] [facility] Comment on above: Performed By: #### C BC #### [facility] Laboratory [address] [place] [address] Dr. Babar Marks IG % 0.3 % Normal 0.0-0.[address] [facility] Comment on above: Performed By: #### C BC #### [facility] Laboratory [address] [place] [address] Dr. Babar Marks LYMPH # 1.7 103/ul Normal 1.2-3.[address] [facility] Comment on above: Performed By: #### C BC #### [facility] Laboratory [address] [place] [address] Dr. Babar Marks Lymphocytes/100 WBC (Bld) 18.1 % Critically low 20.5-60.[address] [facility] Comment on above: Performed By: #### C BC #### [facility] Laboratory [address] [place] [address] Dr. Babar Marks MANUAL DIFF REQ NO Normal [facility] Comment on above: Performed By: #### C BC #### [facility] Laboratory [address] [place] [address] Dr. Babar Marks MCH (RBC) [Entitic mass] 29.5 pg Normal 26.7-34.[address] [facility] Comment on above: Performed By: #### C BC #### [facility] Laboratory [address] [place] [address] Dr. Babar Marks MCHC (RBC) [Mass/Vol] 33.6 g/dL Normal 29.9-35.[address] [facility] Comment on above: Performed By: #### C BC #### [facility] Laboratory [address] [place] [address] Dr. Babar Marks MCV (RBC) [Entitic vol] 87.9 fL Normal 81.0-99.[address] [facility] Comment on above: Performed By: #### C BC #### [facility] Laboratory [address] [place] [address] Dr. Babar Marks MONO # 0.6 103/ul Normal 0.3-0.[address] [facility] Comment on above: Performed By: #### C BC #### [facility] Laboratory [address] [place] [address] Dr. Babar Marks Monocytes/100 WBC (Bld) 6.5 % Normal 1.7-12.[address] [facility] Comment on above: Performed By: #### C BC #### [facility] Laboratory [address] [place] [address] Dr. Babar Marks NEUT # 6.7 103/ul Critically high 1.4-6.5 [facility] Comment on above: Performed By: #### C BC #### [facility] Laboratory [address] [place] [address] Dr. Babar Marks Neutrophils/100 WBC (Bld) 72.9 % Normal 43.0-75.[address] [facility] Comment on above: Performed By: #### C BC #### [facility] Laboratory [address] [place] [address] Dr. Babar Marks Platelet mean volume (Bld) [Entitic vol] 10.1 fL Normal 9.5-13.[address] [facility] Comment on above: Performed By: #### C BC #### [facility] Laboratory [address] [place] [address] Dr. Babar Marks PLT 393 103/ul Normal 150-450 The [facility] Comment on above: Performed By: #### C BC #### [facility] Laboratory [address] [place] [address] Dr. Babar Marks RBC 4.20 106/ul Normal 4.20-5.[address] [facility] Comment on above: Performed By: #### C BC #### [facility] Laboratory [address] [place] [address] Dr. Babar Marks WBC 9.2 103/ul Normal 4.0-11.[address] [facility] Comment on above: Performed By: #### C BC #### [facility] Laboratory [address] [place] [address] Dr. Babar Marks ER URINE PROFILEon 3 Bilirubin Ql (U) Negative Normal NEGATIVE [facility] Comment on above: Performed By: #### E RUR #### [facility] Laboratory [address] [place] [address] Dr. Babar Marks Clarity (U) CLEAR Normal CLEAR The [facility] Comment on above: Performed By: #### E RUR #### [facility] Laboratory [address] [place] [address] Dr. Babar Marks Color (U) LT. YELLOW Normal YELLOW [facility] Comment on above: Performed By: #### E RUR #### [facility] Laboratory [address] [place] [address] Dr. Babar Marks ERUAHD A micrscopic examina tion will be performed if indicated. Normal The [facility] Comment on above: Performed By: #### E RUR #### [facility] Laboratory [address] [place] [address] Dr. Babar Marks Glucose Ql (U) Negative Normal NEGATIVE [facility] Comment on above: Performed By: #### E RUR #### [facility] Laboratory [address] [place] [address] Dr. Babar Marks Hemoglobin Ql (U) Negative Normal NEGATIVE [facility] Comment on above: Performed By: #### E RUR #### [facility] Laboratory [address] [place] [address] Dr. Babar Marks Ketones Ql (U) Negative Normal NEGATIVE [facility] Comment on above: Performed By: #### E RUR #### [facility] Laboratory [address] [place] [address] Dr. Babar Marks LEUKOCYTES Negative Normal NEGATIVE [facility] Comment on above: Performed By: #### E RUR #### [facility] Laboratory [address] [place] [address] Dr. Babar Marks Nitrite Ql (U) Negative Normal NEGATIVE [facility] Comment on above: Performed By: #### E RUR #### [facility] Laboratory [address] [place] [address] Dr. Babar Marks pH (U) 6.5 [pH] Normal 5-9 [facility] Comment on above: Performed By: #### E RUR #### [facility] [address] [place] [address] Dr. Babar Marks SPEC GRAVITY 1.015 Normal 1.005-<=1.[address] [facility] Comment on above: Performed By: #### E RUR #### [facility] [address] [place] [address] Dr. Babar Marks UA PROTEIN Negative Normal NEGATIVE/ TRACE [facility] Comment on above: Performed By: #### E RUR #### [facility] [address] [place] [address] Dr. Babar Marks UR MICRO IND NOT INDICATED Normal [facility] Comment on above: Performed By: #### E RUR #### [facility] [address] [place] [address] Dr. Babar Marks Urobilinogen Qn (U) 0.2 {Courtney'U}/dL Normal 0.2 - 1. [address] [facility] Comment on above: Performed By: #### E RUR #### [facility] [address] [place] [address] Dr. Babar Marks LIPASEon 07-30-2022 Lipase [Catalytic activity/Vol] 141.0 U/L Normal 73.0-393.[address] [facility] Comment on above: Performed By: #### L IPA, CMP #### [facility] [address] [place] [address] Dr. Babar Marks PREG HCG QUALon 07-30-2022 , QUAL Negative Normal NEGATIVE [facility] Comment on above: Performed By: #### C BC #### [facility] [address] [place] [address] Dr. Babar Marks PROF 14(COMP METB)on 023 Albumin [Mass/Vol] 3.3 g/dL Critically low 3.4-5.[address] [facility] Comment on above: Performed By: #### C BC #### [facility] [address] [place] [address] Dr. Babar Marks Albumin/Globulin [Mass ratio] 0.8 {ratio} Normal [facility] Comment on above: Performed By: #### C BC #### [facility] [address] [place] [address] Dr. Babar Marks ALP [Catalytic activity/Vol] 44 U/L Critically low 46-[address] [facility] Comment on above: Performed By: #### C BC #### [facility] [address] [address] [address] Babar Marks ALT [Catalytic activity/Vol] 17 U/L Normal 14-[address] [facility] Comment on above: Performed By: #### C BC #### [facility] [address] [address] [address] Babar Marks Anion gap [Moles/Vol] 11.0 mmol/L Normal [facility] Comment on above: Performed By: #### C BC #### [facility] [address] [address] [address] Babar Marks AST [Catalytic activity/Vol] 13 U/L Critically low 15-[address] [facility] Comment on above: Performed By: #### C BC #### [facility] [address] [place] [address] Dr. Babar Marks Bilirubin [Mass/Vol] 0.3 mg/dL Normal 0.2-1.[address] [facility] Comment on above: Performed By: #### C BC #### [facility] [address] [place] [address] Dr. Babar Marks Calcium [Mass/Vol] 8.6 mg/dL Normal 8.5-10.1 [facility] Comment on above: Performed By: #### C BC #### [facility] [address] [place] [address] Dr. Babar Marks Chloride [Moles/Vol] 107 mmol/L Normal 98-107 [facility] Comment on above: Performed By: #### C BC #### [facility] [address] [address] [address] Babar Marks CO2 [Moles/Vol] 29.5 mmol/L Normal 21.0-32.0 [facility] Comment on above: Performed By: #### C BC #### [facility] [address] [place] [address] Dr. Babar Marks Creatinine [Mass/Vol] 0.71 mg/dL Normal 0.55-1.[address] [facility] Comment on above: Performed By: #### C BC #### [facility] [address] [address] [address] Babar Marks EGFR-AF SOUTH AFRICAN >60 Normal >=60 [facility] Comment on above: Performed By: #### C BC #### [facility] [address] [address] [address] Babar Marks EGFR-NON AF SOUTH AFRICAN >60 Normal >=[address] [facility] Comment on above: Performed By: #### C BC #### [facility] [address] [address] [address] Babar Marks Globulin (S) [Mass/Vol] 4.0 g/dL Normal [facility] Comment on above: Performed By: #### C BC #### [facility] [address] [place] [address] Dr. Babar Marks Glucose [Mass/Vol] 81 mg/dL Normal 74-106 [facility] Comment on above: Performed By: #### C BC #### [facility] [address] [place] [address] Dr. Babar Marks Potassium [Moles/Vol] 3.5 mmol/L Normal 3.5-5.[address] [facility] Comment on above: Performed By: #### C BC #### [facility] [address] [place] [address] Dr. Babar Marks Protein [Mass/Vol] 7.3 g/dL Normal 6.4-8.2 [facility] Comment on above: Performed By: #### C BC #### [facility] [address] [place] [address] Dr. Babar Marks Sodium [Moles/Vol] 144 mmol/L Normal 136-145 [facility] Comment on above: Performed By: #### C BC #### [facility] [address] [place] [address] Dr. Babar Marks Urea nitrogen [Mass/Vol] 14.0 mg/dL Normal 7.0-18.[address] [facility] Comment on above: Performed By: #### C BC #### [facility] [address] [place] [address] Dr. Babar Marks Urea nitrogen/Creatinine [Mass ratio] 19.7 mg/mg Normal [facility] Comment on above: Performed By: #### C BC #### [facility] [address] [address] [address] Babar Marks XR ABD FLAT UP_PA [...] ARRIOLA Date: 2022-07-30 18:[address] [facility] PAP ACOG PANEL 2: 30 to 65on 03-18-2022 . . Normal [facility] Comment on above: Result Comment: Perf ormed at: WB Performed By: #### [id number] #### [facility] [address] [place] [address] Dr. Babar Marks Age Gdln ACOG Testing 30-[address] [facility] Comment on above: Performed By: #### [id number] #### [facility] [address] [address] [address] Babar Marks DIAGNOSIS: Comment Normal [facility] Comment on above: Result Comment: NEGA TIVE FOR INTRAEPITHELIAL LESION OR MALIGNANCY. Performed at: WB Performed By: #### [id number] #### [facility] [address] [address] [address] Babar Marks HPV Aptima Positive Abnormal Negative [facility] Comment on above: Result Comment: This nucleic acid amplification test detects fourteen high-risk HPV types (16,18,31,33,35,39,45,51,52,56,58,59,66,68) without differentiation. Performed at: =G Performed By: #### [id number] #### [facility] [address] [place] [address] Dr. Babar Marks HPV Genotype 16 Negative Normal Negative [facility] Comment on above: Result Comment: Perf ormed at: =G Performed By: #### [id number] #### [facility] [address] [address] [address] Babar Marks HPV Genotype 18,45 Negative Normal Negative [facility] Comment on above: Result Comment: Perf ormed at: =G Performed By: #### [id number] #### [facility] [address] [place] [address] Dr. Babar Marks Methodology: Comment Normal [facility] Comment on above: Result Comment: This liquid based ThinPrep(R) pap test was screened with the use of an image guided system. Performed at: WB Performed By: #### [id number] #### [facility] [address] [place] [address] Dr. Babar Marks Note: Comment Normal [facility] Comment on above: Result Comment: The Pap smear is a screening test designed to aid in the detection of premalignant and malignant conditions of the uterine cervix. It is not a diagnostic procedure and should not be used as the sole means of detecting cervical cancer. Both false-positive and false-negative reports do occur. . Performed at: WB Performed By: #### [id number] #### [facility] [address] [place] [address] Dr. Babar Marks Performed by: Comment Normal [facility] Comment on above: Result Comment: Mar[employer] Developer (ASCP) Performed at: WB Performed By: #### [id number] #### [facility] [address] [place] [address] Dr. Babar Marks Specimen adequacy: Comment Normal [facility] Comment on above: Result Comment: Sati sfactory for evaluation. Endocervical and/or squamous metaplastic cells (endocervical component) are present. Performed at: WB Performed By: #### [id number] #### [facility] [address] [address] [address] Babar Marks CHLAMYDIA/GONOCOCCUS JESS (SW AB/URINE/PAPon 03-14-2022 Chlamydia trachomatis, JESS Negative Normal Negative [facility] Comment on above: Performed By: #### C T/NGNA #### [facility] [address] [address] [address] Babar Marks Neisseria gonorrhoeae, JESS Negative Normal Negative [facility] Comment on above: Performed By: #### C T/NGNA #### [facility] [address] [address] [address] Babar Marks VAGINITIS/VAGINOSIS DNA PROB Tam 03-14-2022 Kelsey species Negative Normal Negative [facility] Comment on above: Performed By: #### V AGINT #### [facility] [address] [place] [address] Dr. Babar Marks Gardnerella vaginalis Negative Normal Negative [facility] Comment on above: Performed By: #### V AGINT #### [facility] [address] [place] [address] Dr. Babar Marks Trichomonas vaginalis Negative Normal Negative [facility] Comment on above: Performed By: #### V AGINT #### [facility] [address] [place] [address] Dr. Babar Marks XR CHEST 2 Von 11-23-2021 XR CHEST 2 V EXAM: XR CHEST 2 V COMPARISON: 02/06/2017 CLINICAL INDICATION: Cough. FINDINGS: The cardiomediastinal silhouette is within normal limits. No focal consolidation. No pleural effusion. No pneumothorax. IMPRESSION: No radiographic evidence of acute cardiopulmonary abnormality. Electronically authenticated by: DANIELA ZENG Date: 2021-11-23 17:[address] [facility] Discharge Summaryon 02-08-20 17 HIM IP Note OR Crnp Normal [facility] Drug Scr, Abuse, Uron 2016 Amphetamine(s),Ur Negative Normal NEG [facility] Comment on above: Result Comment: (Pos itive cutoff 1000 ng/mL) Performed By: #### U AMIC, MARLEEN ####[address] [address] Barbiturate(s),Ur Negative Normal NEG [facility] Comment on above: Result Comment: (Pos itive cutoff 200 ng/mL) Performed By: #### U AMIC, MARLEEN ####[address] [address] Base excess Negative Normal NEG [facility] Comment on above: Result Comment: (Pos itive cutoff 300 ng/mL) Performed By: #### U AMIC, MARLEEN ####[address] [address] Benzodiazepine(s) Negative Normal NEG [facility] Comment on above: Result Comment: (Pos itive cutoff 200 ng/mL) Performed By: #### U AMIC, MARLEEN ####[address] [address] Cannabinoid(s),Ur Negative Normal NEG [facility] Comment on above: Result Comment: (Pos itive cutoff 50 ng/mL) Performed By: #### U AMIC, MARLEEN ####[address] [address] Interpretive Info Assay provides medic al screening only. The absence of expected drug(s) and/or Normal [facility] Comment on above: Result Comment: meta bolite(s) may indicate diluted or adulterated urine, limitations of testing or timing of collection.Testing for legal purposes should be confirmed by another method. To request confirmation of test result, please call the lab within 7 days of sample submission.[address] [address] Performed By: #### U AMIC, MARLEEN ####[address] [address] Opiate(s), Ur Positive Abnormal NEG [facility] Comment on above: Result Comment: (Pos itive cutoff 300 ng/mL) Performed By: #### U AMIC, MARLEEN ####[facility] [address] [place] [address] Oxycodone, Urine Negative Normal NEG [facility] Comment on above: Result Comment: (Pos itive cutoff 100 ng/mL) Performed By: #### U AMIC, MARLEEN ####[facility] [address] [place] [address] Phencyclidine, Ur Negative Normal NEG [facility] Comment on above: Result Comment: (Pos itive cutoff 25 ng/mL) Performed By: #### U AMIC, MARLEEN ####[facility] [address] [place] [address] Urine, methadone presence Negative Normal NEG [facility] Comment on above: Result Comment: (Pos itive cutoff 300 ng/mL) Performed By: #### U AMIC, MARLEEN ####[facility] [address] [place] [address] Buprenorphrine, Ur NOT REPORTED Normal NEG [facility] Comment on above: Performed By: #### U AMIC, MARLEEN ####[facility] [address] [place] [address] MDMA, Urine NOT REPORTED Normal NEG [facility] Comment on above: Performed By: #### U AMIC, MARLEEN ####[facility] [address] [place] [address] Methamphetamine, Ur NOT REPORTED Normal NEG [facility] Comment on above: Performed By: #### U AMIC, MARLEEN ####[facility] [address] [place] [address] Propoxyphene,Urine NOT REPORTED Normal NEG [facility] Comment on above: Performed By: #### U AMIC, MARLEEN ####[facility] [address] [place] [address] Urine, tricyclic antidepressants NOT REPORTED Normal NEG [facility] Comment on above: Performed By: #### U AMICruz, MARLEEN ####[address] [address] ED Noteon 02-07-2017 HIM IP Note OR Crnp Normal [facility] HIM IP Note OR Crnp Normal [facility] ED Provider Noteon 7 HIM IP Note OR Crnp Normal [facility] Ethanol Alcoholon 02-07-2017 Ethanol mg/dL Normal <10 [facility] Comment on above: Performed By: #### A LCB ####[address] [address] Ethanol percent <0.010 Normal [facility] Comment on above: Result Comment: [address] [address] Performed By: #### A LCB ####[address] [address] History and Physicalon 02-07 HIM IP Note OR Crnp Normal [facility] UA w reflex C&Son 02-07-2017 Reflex Culture? URINE CULTURE REFLEXED Normal [facility] Comment on above: Performed By: #### P T/INR, PTT ####[address] [place] [address] Urine, crystals in sediment NONE SEEN Normal NONE SEEN [facility] Comment on above: Performed By: #### P T/INR, PTT ####[address] [place] [address] Urine, bacteria in sediment Negative Normal [facility] Comment on above: Performed By: #### P T/INR, PTT ####[address] [place] [address] Urine, mucus presence in sediment Negative Normal NEGATIVE [facility] Comment on above: Performed By: #### P T/INR, PTT ####[address] [place] [address] Urine, casts in sediment NONE SEEN Normal NONE SEEN [facility] Comment on above: Performed By: #### P T/INR, PTT ####[address] [place] [address] Urine, epithelial cells in sediment Negative Normal NEGATIVE [facility] Comment on above: Performed By: #### P T/INR, PTT ####[address] [place] [address] Erythrocytes (RBC) 0-4/HPF Normal NONE SEEN [facility] Comment on above: Performed By: #### P T/INR, PTT ####[address] [place] [address] WBC (Leukocytes) NONE SEEN Normal NONE SEEN [facility] Comment on above: Performed By: #### P T/INR, PTT ####[address] [address] [place] [address] Urine, leukocyte esterase presence Negative Normal NEGATIVE [facility] Comment on above: Performed By: #### P T/INR, PTT ####[address] [place] [address] Urine, nitrite presence Negative Normal NEGATIVE [facility] Comment on above: Performed By: #### P T/INR, PTT ####[address] [place] [address] Urobilinogen, Dipstick 0.2 Normal 0.2 - 1.0 [facility] Comment on above: Performed By: #### P T/INR, PTT ####[address] [place] [address] Protein, Qual Negative Normal NEGATIVE [facility] Comment on above: Performed By: #### P T/INR, PTT ####[address] [place] [address] Urine, pH 7.0 [pH] Normal 5.0 - 9.0 [facility] Comment on above: Performed By: #### P T/INR, PTT ####[address] [place] [address] Blood, Dipstick TRACE Abnormal NEGATIVE [facility] Comment on above: Performed By: #### P T/INR, PTT ####[address] [place] [address] Urine, specific gravity 1.015 Normal 1.005 - 1.030 [facility] Comment on above: Performed By: #### P T/INR, PTT ####[address] [place] [address] Ketone, Dipstick Negative Normal NEGATIVE [facility] Comment on above: Performed By: #### P T/INR, PTT ####[address] [place] [address] Bilirubin (direct) Negative Normal NEGATIVE [facility] Comment on above: Performed By: #### P T/INR, PTT ####[address] [place] [address] Glucose mass conc Negative Normal NEGATIVE [facility] Comment on above: Performed By: #### P T/INR, PTT ####[address] [place] [address] Urine, character CLEAR Normal CLEAR [facility] Comment on above: Performed By: #### P T/INR, PTT ####[address] [place] [address] Urine, color YELLOW Normal [facility] Comment on above: Performed By: #### P T/INR, PTT ####[address] [place] [address] Urinalysis w/ Microon 2016 ----- Normal [facility] Comment on above: Performed By: #### U AMIC, MARLEEN ####[address] [address] Acetaminophen mass conc Negative Normal NEG [facility] Comment on above: Performed By: #### U AMIC, MARLEEN ####[address] [address] Bilirubin (direct) Negative Normal NEG [facility] Comment on above: Performed By: #### U AMIC, MARLEEN ####[address] [address] Hemoglobin mass conc (Bld) LARGE Abnormal NEG [facility] Comment on above: Performed By: #### U AMIC, MARLEEN ####[address] [address] Nitrite,Ur Negative Normal NEG [facility] Comment on above: Performed By: #### U AMIC, MARLEEN ####[address] [address] Turbidity CLEAR Normal CLEAR [facility] Comment on above: Performed By: #### U AMIC, MARLEEN ####[address] [address] Urine WBC's 0 TO 2 Normal 0-5 [facility] Comment on above: Performed By: #### U AMIC, MARLEEN ####[facility] [address] [place] [address] Urine, casts in sediment 0 TO 2 HYALINE Normal 0-8 [facility] Comment on above: Result Comment: Refe rence range defined for non-centrifuged specimen. Performed By: #### U AMIC, MARLEEN ####[facility] [address] [place] [address] Urine, color YELLOW Normal YEL [facility] Comment on above: Performed By: #### U AMIC, MARLEEN ####[facility] [address] [place] [address] Urine, epithelial cells in sediment 0 TO 2 Normal 0-5 [facility] Comment on above: Result Comment: [facility] [place] [address] Performed By: #### U AMIC, MARLEEN ####[facility] [address] [place] [address] Urine, erythrocytes 2 TO 5 Normal 0-4 [facility] Comment on above: Result Comment: Refe rence range defined for non-centrifuged specimen. Performed By: #### U AMIC, MARLEEN ####[facility] [address] [place] [address] Urine, glucose presence Negative Normal NEG [facility] Comment on above: Performed By: #### U AMIC, MARLEEN ####[facility] [address] [place] [address] Urine, leukocyte esterase presence Negative Normal NEG [facility] Comment on above: Performed By: #### U AMIC, MARLEEN ####[facility] [address] [place] [address] Urine, pH 6.0 [pH] Normal 5.0-8.0 [facility] Comment on above: Performed By: #### U AMIC, MARLEEN ####[address] [place] [address] Urine, protein presence Negative Normal NEG [facility] Comment on above: Performed By: #### U AMIC, MARLEEN ####[address] [place] [address] Urine, specific gravity 1.013 Normal 1.005-1.030 [facility] Comment on above: Performed By: #### U AMIC, MARLEEN ####[address] [address] Urobilinogen,Ur Normal Normal NORM [facility] Comment on above: Performed By: #### U AMIC, MARLEEN ####[address] [address] Epithelial, Renal NOT REPORTED Normal 0 [facility] Comment on above: Performed By: #### U AMIC, MARLEEN ####[address] [address] Mucus Strands NOT REPORTED Normal NONE [facility] Comment on above: Performed By: #### U AMIC, MARLEEN ####[address] [address] Other Observations NOT REPORTED Normal NREQ [facility] Comment on above: Performed By: #### U AMIC, MARLEEN ####[address] [address] Trichomonas NOT REPORTED Normal NONE [facility] Comment on above: Performed By: #### U AMIC, MARLEEN ####[address] [address] Urine, amorphous sediment presence in sediment NOT REPORTED Normal NONE [facility] Comment on above: Performed By: #### U AMIC, MARLEEN ####[address] [place] [address] Urine, bacteria in sediment NOT REPORTED Normal NONE [facility] Comment on above: Performed By: #### U RADHA STODDARDU ####[address] [place] [address] Urine, crystals in sediment NOT REPORTED Normal NONE [facility] Comment on above: Performed By: #### U RADHA STODDARDU ####[address] [place] [address] Urine, yeast presence in sediment NOT REPORTED Normal NONE [facility] Comment on above: Performed By: #### U RADHA STODDARDU ####[address] [place] [address] XR CHEST PA OR AP (1 VIEW)on [...] injury.Report electronically signed by: Dr. Chilo Fernandez [facility] XR SHOULDER RTon 02-07-2017 XR SHOULDER [...] electronically signed by: Dr. Chilo Fernandez Normal [facility] APTTon 02-06-2017 aPTT 29.1 s Normal 23.0 - 37.0 [facility] Comment on above: Performed By: #### P T/INR, PTT ####[address] [place], [place] [id number] Basic Metabolic Panelon 01-23 eGFR (non-black) 108.65 Normal [facility] Comment on above: Result Comment: eGFR Interpretation:Normal: Equal to or greater than 60 mL/min/1.73 meters squaredChronic Kidney Disease: Less than 60 mL/min/1.73 meters squaredKidney Failure: Less than 15 mL/min/1.73 meters squared Performed By: #### B MP, LIVER PROFILE ####[address] [place] [address] eGFR (non-black) 114.39 Normal [facility] Comment on above: Result Comment: eGFR Interpretation:Normal: Equal to or greater than 60 mL/min/1.73 meters squaredChronic Kidney Disease: Less than 60 mL/min/1.73 meters squaredKidney Failure: Less than 15 mL/min/1.73 meters squared Performed By: #### B MP, LIVER PROFILE ####[address] [place] [address] eGFR (non-black) 108.1 Normal [facility] Comment on above: Result Comment: eGFR Interpretation:Normal: Equal to or greater than 60 mL/min/1.73 meters squaredChronic Kidney Disease: Less than 60 mL/min/1.73 meters squaredKidney Failure: Less than 15 mL/min/1.73 meters squared Performed By: #### B MP, LIVER PROFILE ####[address] [place] [address] eGFR (non-black) 81.88 Normal [facility] Comment on above: Result Comment: eGFR Interpretation:Normal: Equal to or greater than 60 mL/min/1.73 meters squaredChronic Kidney Disease: Less than 60 mL/min/1.73 meters squaredKidney Failure: Less than 15 mL/min/1.73 meters squared Performed By: #### B MP, LIVER PROFILE ####[address] [place] [address] eGFR (non-black) 125.60 Normal [facility] Comment on above: Performed By: #### B MP, LIVER PROFILE ####[address] [place] [address] eGFR (non-black) 132.24 Normal [facility] Comment on above: Performed By: #### B MP, LIVER PROFILE ####[address] [place] [address] eGFR (non-black) 124.64 Normal [facility] Comment on above: Performed By: #### B MP, LIVER PROFILE ####[address] [place] [address] eGFR (non-black) 94.39 Normal [facility] Comment on above: Performed By: #### B MP, LIVER PROFILE ####[address] [place] [address] Age 26 year(s) Normal [facility] Comment on above: Performed By: #### B MP, LIVER PROFILE ####[address] [place] [address] Calcium 10.1 mg/dL Normal 8.4 - 10.2 [facility] Comment on above: Performed By: #### B MP, LIVER PROFILE ####[address] [place] [address] Chloride 103 mmol/L Normal 98 - 107 [facility] Comment on above: Performed By: #### B MP, LIVER PROFILE ####[address] [place] [address] CO2 25 mmol/L Normal 22 - 32 [facility] Comment on above: Performed By: #### B MP, LIVER PROFILE ####[address] [place] [address] Creatinine 0.96 mg/dL Normal 0.52 - 1.04 [facility] Comment on above: Performed By: #### B MP, LIVER PROFILE ####[address] [place] [address] Glucose mass conc 126 mg/dL High 65 - 100 [facility] Comment on above: Performed By: #### B MP, LIVER PROFILE ####[address] [place] [address] Potassium molar conc 3.9 mmol/L Normal 3.6 - 5.0 [facility] Comment on above: Performed By: #### B MP, LIVER PROFILE ####[address] [place] [address] Sodium 139 mmol/L Normal 135 - 145 [facility] Comment on above: Performed By: #### B MP, LIVER PROFILE ####[address] [place] [address] Urea nitrogen 20 mg/dL High 7 - 17 [facility] Comment on above: Performed By: #### B MP, LIVER PROFILE ####[address] [place] [address] CBC W Auto Differentialon Abs Neut # 9.0 10 X 3/mm High 1.8 - 7.7 [facility] Comment on above: Performed By: #### C BC Auto Diff ####[address] [place] [address] Basophils/100 WBC Auto (Bld) 1 % High 0 - 1 [facility] Comment on above: Performed By: #### C BC Auto Diff ####[address] [place] [address] Eosinophils 0.1 10 X 3/mm Normal 0.0 - 0.5 [facility] Comment on above: Performed By: #### C BC Auto Diff ####[address] [place] [address] Eosinophils/100 leukocytes 1 % Normal 0 - 5 [facility] Comment on above: Performed By: #### C BC Auto Diff ####[address] [place] [address] Erythrocyte distribution width Auto Ratio (RBC) 15.1 % High 11.5 - 14.5 [facility] Comment on above: Performed By: #### C BC Auto Diff ####[address] [place] [address] Erythrocytes (RBC) 4.28 10 X 6/mm Normal 4.20 - 5.40 [facility] Comment on above: Performed By: #### C BC Auto Diff ####[address] [place] [address] Hematocrit (HCT) 36.3 % Normal 36.0 - 47.0 [facility] Comment on above: Performed By: #### C BC Auto Diff ####[address] [place] [address] Hemoglobin mass conc (Bld) 12.4 g/dL Normal 12.0 - 16.0 [facility] Comment on above: Performed By: #### C BC Auto Diff ####[address] [place] [address] Lymphocytes 2.3 10 X 3/mm Normal 1.0 - 4.0 [facility] Comment on above: Performed By: #### C BC Auto Diff ####[address] [place] [address] Lymphocytes/100 leukocytes 19 % Low 20 - 40 [facility] Comment on above: Performed By: #### C BC Auto Diff ####[address] [place] [address] MCH 29.0 pg Normal 27.0 - 35.0 [facility] Comment on above: Performed By: #### C BC Auto Diff ####[address] [place] [address] MCHC mass conc (RBC) 34.2 g/dL Normal 32.0 - 36.0 [facility] Comment on above: Performed By: #### C BC Auto Diff ####[address] [place] [address] MCV 84.9 fL Normal 80.0 - 100.0 [facility] Comment on above: Performed By: #### C BC Auto Diff ####[address] [place] [address] Monocytes/100 leukocytes 6 % Normal 1 - 15 [facility] Comment on above: Performed By: #### C BC Auto Diff ####[address] [place] [address] Neutrophils/100 WBC Auto (Bld) 74 % High 50 - 70 [facility] Comment on above: Performed By: #### C BC Auto Diff ####[address] [place] [address] Platelet mean volume (PMV) 8.0 fL Normal 7.5 - 11.5 [facility] Comment on above: Performed By: #### C BC Auto Diff ####[address] [place] [address] Platelets 454 uLx10 High 150 - 450 [facility] Comment on above: Performed By: #### C BC Auto Diff ####[address] [place] [address] WBC (Leukocytes) 12.2 10 X 3/mm High 3.7 - 11.0 [facility] Comment on above: Performed By: #### C BC Auto Diff ####[address] [place] [address] CT BRAIN WOon 02-06-2017 Thyroid stimulating hormone [...] effectReport electronically signed by: Dr. Zaire Babcock [facility] CT CERVICAL SPINE WOon 02-06 CT [...] indicated.Report electronically signed by: Dr. Mahamed King [facility] CT SINUS/FACIAL WOon 017 CT SINUS/FACIAL [...] electronically signed by: Dr. Hal Ayoub Normal [facility] Hepatic Function Panelon Alanine aminotransferase (ALT) 30 U/L Normal 7 - 52 [facility] Comment on above: Performed By: #### B MP, LIVER PROFILE ####[address] [place] [address] Albumin 3.8 g/dL Normal 3.5 - 5.0 [facility] Comment on above: Performed By: #### B MP, LIVER PROFILE ####[address] [place] [address] Alkaline phosphatase (ALP) 63 U/L Normal 38 - 126 [facility] Comment on above: Performed By: #### B MP, LIVER PROFILE ####[address] [place] [address] Aspartate aminotransferase (AST) 22 U/L Normal 14 - 36 [facility] Comment on above: Performed By: #### B MP, LIVER PROFILE ####[address] [place] [address] Bilirubin (direct) 0.0 mg/dL Normal 0.0 - 0.2 [facility] Comment on above: Performed By: #### B MP, LIVER PROFILE ####[address] [place] [address] Bilirubin (total) 0.8 mg/dL Normal 0.2 - 1.3 [facility] Comment on above: Performed By: #### B MP, LIVER PROFILE ####[address] [place] [address] Protein 6.9 g/dL Normal 6.3 - 8.2 [facility] Comment on above: Performed By: #### B MP, LIVER PROFILE ####[address] [place] [address] PT/INRon 02-06-2017 INR Coag RelTime (Bld) See Comments Normal [facility] Comment on above: Result Comment: [place] [...] 2.5-3.5 Performed By: #### P T/INR, PTT ####[address] [place] [address] INR Coag RelTime (PPP) 0.94 Normal 0.90 - 1.10 [facility] Comment on above: Performed By: #### P T/INR, PTT ####[address] [place] [address] Prothrombin time (PT) Coag time (PPP) 12.6 s Normal [facility] Comment on above: Performed By: #### P T/INR, PTT ####[address] [place] [address] Troponin I, Extra Sensitiveo n 02-06-2017 Troponin I.cardiac mass conc ng/mL Normal 0.000 - 0.034 [facility] Comment on above: Result Comment: Limi t of Detection: <0.012 ng/mLAt Risk of Myocardial Damage: 0.012-0.034 ng/mLProbable Myocardial Damage: >0.034 ng/mL Performed By: #### T ROPONIN I ####[address] [place] [address] hCG, Qualitative-Serumon Internal Control ACCEPTABLE Normal [facility] Comment on above: Performed By: #### H CG,QUAL SERUM ####[address] [place] [address] hCG, Qualitative-Serum Negative Normal NEGATIVE [facility] Comment on above: Performed By: #### H CG,QUAL SERUM ####[address] [place], [place] [id number] Vital Signs Date Time Vital Sign Value Performing Clinician Facility 12-25-2024 14:28-0400 Body mass index (BMI) [Ratio] 33.91 kg/m2 Eric Elayne DO Work Phone: [facility] 12-25-2024 14:28-0400 Body weight 92.42 kg Eric Elayne DO Work Phone: [facility] 12-25-2024 14:28-0400 Diastolic blood pressure 80 mm[Hg] Eric Elayne DO Work Phone: [facility] 12-25-2024 14:28-0400 Systolic blood pressure 110 mm[Hg] Eric Elayne DO Work Phone: [facility] 12-13-2024 14:59-0400 Body mass index (BMI) [Ratio] 34.78 kg/m2 Eric Elayne DO Work Phone: [facility] 12-13-2024 14:59-0400 Body weight 94.8 kg Eric Elayne DO Work Phone: [facility] 12-13-2024 14:59-0400 Diastolic blood pressure 78 mm[Hg] Eric Elayne DO Work Phone: [facility] 12-13-2024 14:59-0400 Systolic blood pressure 120 mm[Hg] Eric Elayne DO Work Phone: [facility] 11-28-2024 14:25-0400 Body mass index (BMI) [Ratio] 34.61 kg/m2 Eric Elayne DO Work Phone: [facility] 11-28-2024 14:25-0400 Body weight 94.35 kg Eric Elayne DO Work Phone: [facility] 11-28-2024 14:25-0400 Diastolic blood pressure 76 mm[Hg] Eric Elayne DO Work Phone: [facility] 11-28-2024 14:25-0400 Systolic blood pressure 120 mm[Hg] Eric Elayne DO Work Phone: [facility] 11-07-2024 13:37-0400 Body mass index (BMI) [Ratio] 35.11 kg/m2 Eric Elayne DO Work Phone: [facility] 11-07-2024 13:37-0400 Body weight 95.71 kg Eric Elayne DO Work Phone: [facility] 11-07-2024 13:37-0400 Diastolic blood pressure 72 mm[Hg] Eric Elayne DO Work Phone: [facility] 11-07-2024 13:37-0400 Systolic blood pressure 122 mm[Hg] Eric Elayne DO Work Phone: [facility] 09-18-2024 13:47-0500 Body mass index (BMI) [Ratio] 31.92 kg/m2 Loraine OLIVO Work Phone: [facility] 09-18-2024 13:47-0500 Body weight 87 kg Loraine OLIVO Work Phone: [facility] 09-18-2024 13:47-0500 Diastolic blood pressure 76 mm[Hg] Loraine OLIVO Work Phone: [facility] 09-18-2024 13:47-0500 Systolic blood pressure 116 mm[Hg] Loraine OLIVO Work Phone: [facility] 09-08-2024 15:52-0500 Body height 165.1 cm [facility] 09-08-2024 15:52-0500 Body mass index (BMI) [Ratio] 58.6 kg/m2 [facility] 09-08-2024 15:52-0500 Body temperature 98.9 [degF] [facility] 09-08-2024 15:52-0500 Body weight 160 kg [facility] 09-08-2024 15:52-0500 Diastolic blood pressure 78 mm[Hg] [facility] 09-08-2024 15:52-0500 Heart rate 105 /min [facility] 09-08-2024 15:52-0500 Respiratory rate 18 /min [facility] 09-08-2024 15:52-0500 SaO2% (BldA) [Mass fraction] 97 % [facility] 09-08-2024 15:52-0500 Systolic blood pressure 120 mm[Hg] [facility] 08-21-2024 13:18-0500 Body mass index (BMI) [Ratio] 31.12 kg/m2 Eric Elayne DO Work Phone: [facility] 08-21-2024 13:18-0500 Body weight 84.82 kg Eric Elayne DO Work Phone: [facility] 08-21-2024 13:18-0500 Diastolic blood pressure 70 mm[Hg] Eric Elayne DO Work Phone: [facility] 08-21-2024 13:18-0500 Systolic blood pressure 120 mm[Hg] Eric Elayne DO Work Phone: [facility] 07-21-2024 11:10-0500 Body mass index (BMI) [Ratio] 29.45 kg/m2 [facility] 07-21-2024 11:10-0500 Body weight 80.29 kg [facility] 07-21-2024 11:10-0500 Diastolic blood pressure 76 mm[Hg] [facility] 07-21-2024 11:10-0500 Systolic blood pressure 124 mm[Hg] [facility] 06-08-2024 10:32-0500 Body height 165.1 cm [facility] 06-08-2024 10:32-0500 Body mass index (BMI) [Ratio] 29.1 kg/m2 [facility] 06-08-2024 10:32-0500 Body temperature 97.5 [degF] [facility] 06-08-2024 10:32-0500 Body weight 79.37 kg [facility] 06-08-2024 10:32-0500 Diastolic blood pressure 89 mm[Hg] [facility] 06-08-2024 10:32-0500 Heart rate 93 /min [facility] 06-08-2024 10:32-0500 Respiratory rate 18 /min [facility] 06-08-2024 10:32-0500 SaO2% (BldA) [Mass fraction] 98 % [facility] 06-08-2024 10:32-0500 Systolic blood pressure 130 mm[Hg] [facility] 04-21-2024 13:40-0400 Body height 165.1 cm [facility] 04-21-2024 13:40-0400 Body mass index (BMI) [Ratio] 28.1 kg/m2 [facility] 04-21-2024 13:40-0400 Body temperature 99.4 [degF] [facility] 04-21-2024 13:40-0400 Body weight 76.82 kg [facility] 04-21-2024 13:40-0400 Diastolic blood pressure 84 mm[Hg] [facility] 04-21-2024 13:40-0400 Heart rate 85 /min [facility] 04-21-2024 13:40-0400 Respiratory rate 18 /min [facility] 04-21-2024 13:40-0400 SaO2% (BldA) [Mass fraction] 99 % [facility] 04-21-2024 13:40-0400 Systolic blood pressure 126 mm[Hg] [facility] 12-22-2023 18:07-0400 Body height 165.1 cm [facility] 12-22-2023 18:07-0400 Body mass index (BMI) [Ratio] 27.8 kg/m2 [facility] 12-22-2023 18:07-0400 Body temperature 98.7 [degF] [facility] 12-22-2023 18:07-0400 Body weight 75.74 kg [facility] 12-22-2023 18:07-0400 Heart rate 84 /min [facility] 12-22-2023 18:07-0400 Respiratory rate 18 /min [facility] 12-22-2023 18:07-0400 SaO2% (BldA) [Mass fraction] 99 % [facility] Encounters Encounter Date Encounter Type Care Provider Facility Start: 12-27-2024 End: 12-28-2024 Clinisync Result Encounter Eric Elayne DO Work Phone: [facility] Unsolicited Start: 12-27-2024 End: 12-28-2024 Clinisync Result Encounter Eric Elayne DO Work Phone: [facility] Unsolic[facility] Start: 12-25-2024 End: 12-25-2024 Office outpatient visit 15 minutes Eric Elayne DO Work Phone: [facility] Comment on above: 32 weeks gestation o f ; Third trimester ; Gestational diabetes mellitus (GDM), antepartum, gestational diabetes method of control unspecified; Elevated glucose tolerance test Start: 12-25-2024 End: 12-25-2024 ambulatory ERIC ELAYNE Not Available Start: 12-13-2024 End: 12-13-2024 Office outpatient visit 15 minutes Eric Elayne DO Work Phone: [facility] Comment on above: 30 weeks gestation o f ; Third trimester ; Gestational diabetes mellitus (GDM), antepartum, gestational diabetes method of control unspecified Start: 12-13-2024 End: 12-13-2024 ambulatory ERIC ELAYNE Not Available Start: 12-13-2024 End: 12-13-2024 Bamboo flowsheet Eric Elayne DO Work Phone: [facility] Start: 12-13-2024 End: 12-13-2024 Bamboo flowsheet Eric Elayne DO Work Phone: [facility] Start: 11-28-2024 End: 11-28-2024 Bamboo flowsheet Eric Elayne DO Work Phone: [facility] Start: 11-28-2024 End: 11-28-2024 Bamboo flowsheet Eric Elayne DO Work Phone: [facility] Start: 11-28-2024 End: 11-28-2024 ambulatory ERIC ELAYNE Not Available Start: 11-28-2024 End: 11-28-2024 Office outpatient visit 15 minutes Eric Elayne DO Work Phone: [facility] Comment on above: Third trimester preg chester; 28 weeks gestation of Start: 11-23-2024 End: 11-23-2024 Clinisync Result Encounter Eric Elayne DO Work Phone: [facility] Unsolicited Start: 11-23-2024 End: 11-23-2024 Clinisync Result Encounter Eric Elayne DO Work Phone: [facility] Unsolicited Start: 11-16-2024 End: 11-16-2024 Clinisync Result Encounter Eric Elayne DO Work Phone: [facility] Unsolicited Start: 11-16-2024 End: 11-16-2024 Clinisync Result Encounter Eric Elayne DO Work Phone: [facility] Unsolicited Start: 11-07-2024 End: 11-07-2024 Bamboo flowsheet Eric Elyane DO Work Phone: [facility] Start: 11-07-2024 End: 11-07-2024 Bamboo flowsheet Eric Elayne DO Work Phone: [facility] Start: 11-07-2024 End: 11-07-2024 ambulatory ERIC ELAYNE Not Available Start: 11-07-2024 End: 11-07-2024 Office outpatient visit 15 minutes Eric Elayne DO Work Phone: [facility] Comment on above: Second trimester pre gnancy; 25 weeks gestation of ; Diabetes mellitus screening Start: 10-27-2024 End: 10-27-2024 Clinisync Result Encounter Eric Elayne DO Work Phone: [facility] Unsolicited Start: 10-27-2024 End: 10-27-2024 Clinisync Result Encounter Eric Elayne DO Work Phone: [facility] Unsolicited Start: 10-09-2024 End: 10-09-2024 ambulatory ERIC ELAYNE Not Available Start: 09-18-2024 End: 09-18-2024 Bamboo flowsheet Loraine OLIVO Work Phone: [facility] Start: 09-18-2024 End: 09-25-2024 Bamboo flowsheet Loraine OLIVO Work Phone: [facility] Start: 09-18-2024 End: 09-25-2024 Clinisync Result Encounter Loraine OLIVO Work Phone: [facility] Unsolicited Start: 09-18-2024 End: 09-19-2024 External Result Encounter Loraine OLIVO Work Phone: [facility] Unsolicited Start: 09-18-2024 End: 09-18-2024 Patient encounter procedure Loraine OLIVO Work Phone: [facility] Work Phone: Start: 09-18-2024 End: 09-18-2024 [...] Not Available Start: 09-08-2024 End: 09-08-2024 ambulatory [facility] Work Phone: Start: 09-08-2024 End: 09-08-2024 Patient encounter procedure [facility] Work Phone: Start: 09-06-2024 [...] GA: 10w0d Start: 06-08-2024 End: 06-08-2024 ambulatory [facility] Work Phone: Start: 06-08-2024 End: 06-08-2024 Patient encounter procedure [facility] Work Phone: Start: 04-21-2024 End: 04-21-[address] [facility] Work Phone: Start: 04-21-2024 End: 04-21-2024 Patient encounter procedure [facility] Work Phone: Start: 12-22-2023 End: 12-22-[address] [facility] Work Phone: Start: 12-22-2023 End: 12-22-2023 Patient encounter procedure [facility] Work Phone: Start: 12-01-2022 ambulatory Facility:[facility] [place] Start: 08-24-2022 End: 08-25-[address] MECHE LE Facility:[facility] Start: 08-19-2022 End: 08-19-[address] ERIC HOLLY Facility:[facility] Start: 07-30-2022 End: 07-30-2022 ambulatory LEANDRO VERDUZCO Facility:[facility] Start: 03-11-2022 End: 03-11-[address] ERIC HOLLY Facility:[facility] Start: 11-23-2021 End: 11-23-2021 ambulatory LEANDRO VERDUZCO Facility:[facility] Start: 02-07-2017 End: 02-07-2017 Ambulatory [facility] Start: 02-06-2017 End: 02-07-2017 Emergency department patient visit IBRAHIMA WARE Facility:[facility] Procedures Date Procedure Procedure Detail Performing Clinician Start: 12-27-2024 US OB BPP W NON-STRESS Eric Elayne DO Work Phone: Start: 12-27-2024 US OB GROWTH Eric Fazi o DO Work Phone: Start: 12-25-2024 Urnls dip stick/tabl et rgnt non-auto w/o micrscp Eric Elayne DO Work Phone: Start: 12-13-2024 Urnls dip stick/tabl et rgnt non-auto w/o micrscp Eric Elayne DO Work Phone: Start: 11-23-2024 ALL CBC WITH AUTO DIFF Eric Elayne DO Work Phone: Start: 11-16-2024 [facility] UA (CLEAN/CATCH) CREDIT REPRESENTATIVE/MICRO IF IND. Eric Elayne DO Work Phone: Start: 11-07-2024 Urnls dip stick/tabl et rgnt non-auto w/o micrscp Eric Elayne DO Work Phone: Start: 10-27-2024 US OB INCOMPLETE ANATOMY Eric Elayne DO Work Phone: Start: 09-18-2024 RECURRENT VAGINITIS (HTRX) Loraine OLIVO Work Phone: Start: 09-18-2024 Urnls dip stick/tabl et rgnt non-auto w/o micrscp Loraine OLIVO Work Phone: Start: 09-18-2024 IGP,APTIMA HPV,AGE GDLN Loraine OLIVO Work Phone: Start: 09-18-2024 Microscopic observat ion [Identifier] in Cervix by Cyto stain Eric Elayne DO Work Phone: Start: 09-06-2024 AFP, SERUM, OPEN [...] GENERAL [facility] Start: 02-07-2017 ETHANOL ALTA ESTRADA SA RODRIGUEZ [facility] Start: 02-07-2017 FULL CODE ALTA MCNULTY [...] Treatment Date Care Activity Detail Author Start: 09-18-2025 Screening for malign ant neoplasm of cervix [facility] Start: 03-26-2025 Influenza vaccination Influenz a Vaccine (Season Ended) [facility] Start: 01-09-2025 End: 01-09-2025 Patient encounter procedure 01/09/2025 1:40 PM EDT Routine [facility] [address] [place] [id number] Eric Holly, DO [address] [place] [address] [facility] Start: 12-25-2024 End: 12-25-2024 Patient encounter procedure 12/25/2024 2:00 PM EDT Routine [facility] [address] [place] [id number] Eric Holly, DO [address] [facility] [address] [place] [address] [facility] Start: 12-13-2024 End: 12-13-2024 Patient encounter procedure [facility] Comment on above: Arrived Start: 12-13-2024 End: 06-15-2025 US biophysical profile w non stress test US biophysical profile w non stress test Imaging Routine Gestational diabetes mellitus (GDM), antepartum, gestational diabetes method of control unspecified Expected: 12/13/2024 (Approximate), Expires: 06/15/2025 [facility] Comment on above: Expected: 12/13/2024 (Approximate), Expires: 06/15/2025 Start: 12-13-2024 End: 04-15-2025 US for US OB follow up transabdominal approach Imaging Routine Gestational diabetes mellitus (GDM), antepartum, gestational diabetes method of control unspecified Expected: 12/13/2024, Expires: 04/15/2025 [facility] Work Phone: Comment on above: Expected: 12/13/2024 , Expires: 04/15/2025 Start: 11-28-2024 End: 11-28-2024 Patient encounter procedure 11/28/2024 1:50 PM EDT Routine [facility] [address] [id number] Eric Holly, DO [address] [place] [address] [facility] Start: 11-07-2024 End: 11-07-2025 CBC panel - Blood by Automated count CBC Lab Routine Diabetes mellitus screening Expected: 11/07/2024 (Approximate), Expires: 11/07/2025 [facility] Work Phone: Comment on above: Expected: 11/07/2024 (Approximate), Expires: 11/07/2025 Start: 11-07-2024 End: 11-07-2025 Measurement of glucose 1 hour after glucose challenge for glucose tolerance test Glucose tolerance, 1 hour Lab Routine Diabetes mellitus screening Expected: 11/07/2024 (Approximate), Expires: 11/07/2025 [facility] Comment on above: Expected: 11/07/2024 (Approximate), Expires: 11/07/2025 Start: 11-07-2024 End: 11-07-2024 Patient encounter procedure 11/07/2024 1:20 PM EDT Routine [facility] [address] [place] [address] Eric Holly, DO [address] [place] [address] [facility] Start: 10-16-2024 End: 10-16-2024 Patient encounter procedure 10/16/2024 2:20 PM EDT Routine [facility] [address] [facility] [facility] [facility] [address] [place] [id number] Eric Holly, DO [address] [place] [address] [facility] Start: 09-18-2024 End: 03-18-2025 Alpha fetoprotein, maternal Alpha fetoprotein, maternal Lab Routine Second trimester 18 weeks gestation of Expected: 09/18/2024 (Approximate), Expires: 03/18/2025 [facility] Comment on above: Expected: 09/18/2024 (Approximate), Expires: 03/18/2025 Start: 09-18-2024 End: 09-18-2025 US for US OB 14+ weeks anatomy scan Imaging Routine Screening, , for anatomic survey Expected: 09/18/2024, Expires: 09/18/2025 [facility] Comment on above: Expected: 09/18/2024 , Expires: 09/18/2025 Start: 09-18-2024 End: 09-18-2024 Patient encounter procedure [facility] Comment on above: Arrived Start: 08-21-2024 End: 09-21-2024 Alpha fetoprotein, maternal Alpha fetoprotein, maternal Lab Routine 14 weeks gestation of Second trimester Expected: 08/21/2024 (Approximate), Expires: 09/21/2024 [facility] Work Phone: Comment on above: Expected: 08/21/2024 (Approximate), Expires: 09/21/2024 Start: 08-21-2024 End: 08-21-2024 Patient encounter procedure [facility] Comment on above: Arrived Start: 07-21-2024 End: 07-21-2025 ABO/Rh ABO/Rh Lab Routine Missed menses , unspecified gestational age Expected: 07/21/2024 (Approximate), Expires: 07/21/2025 [facility] Comment on above: Expected: 07/21/2024 (Approximate), Expires: 07/21/2025 Start: 07-21-2024 End: 07-21-2025 Blood type and Indirect antibody screen panel - Blood Type and screen Lab Routine Missed menses , unspecified gestational age Expected: 07/21/2024 (Approximate), Expires: 07/21/2025 [facility] Work Phone: Comment on above: Expected: 07/21/2024 (Approximate), Expires: 07/21/2025 Start: 07-21-2024 End: 07-21-2025 Drugs of abuse panel - Urine by Screen method Rapid drug screen, urine Lab Routine , unspecified gestational age Encounter for supervision of normal first in first trimester Expected: 07/21/2024 (Approximate), Expires: 07/21/2025 [facility] Comment on above: Expected: 07/21/2024 (Approximate), Expires: 07/21/2025 Start: 07-21-2024 End: 07-21-2025 US Pelvis transvaginal US OB transvaginal Imaging Routine Missed menses Expected: 07/21/2024 (Approximate), Expires: 07/21/2025 [facility] Comment on above: Expected: 07/21/2024 (Approximate), Expires: 07/21/2025 Bacteria identified in Urine by Culture Urine culture Microbiology Routine Missed menses Ordered: 07/21/2024 [facility] Comment on above: Ordered: 07/21/2024 CBC W Auto Different ial panel - Blood CBC and differential Lab Routine Missed menses , unspecified gestational age Ordered: 07/21/2024 [facility] Comment on above: Ordered: 07/21/2024 CHLAMYDIA TRACHOMATI S (GENITO/STI) CHLAMYDIA TRACHOMATIS (GENITO/STI) Lab Routine STD exposure Ordered: 09/18/2024 [facility] Comment on above: Ordered: 09/18/2024 Cytology Cervical or vaginal smear or scraping study Pap Smear Pathology and Cytology Routine Well woman exam with routine gynecological exam Ordered: 09/18/2024 [facility] Comment on above: Ordered: 09/18/2024 Hemoglobin A1c/Hemoglobin.total in Blood Hemoglobin A1c Lab Routine Missed menses , unspecified gestational age Ordered: 07/21/2024 [facility] Comment on above: Ordered: 07/21/2024 Hepatitis B virus surface Ag [Presence] in Serum or Plasma by Immunoassay Hepatitis B surface antigen Lab Routine Missed menses , unspecified gestational age Ordered: 07/21/2024 [facility] Comment on above: Ordered: 07/21/2024 Hepatitis C virus Ab [Presence] in Serum or Plasma by Immunoassay Hepatitis C antibody Lab Routine Missed menses , unspecified gestational age Ordered: 07/21/2024 [facility] Comment on above: Ordered: 07/21/2024 HIV-1/HIV-2 antigen/antibody combination immunoassay HIV-1 and HIV-2 antibodies Lab Routine Missed menses , unspecified gestational age Ordered: 07/21/2024 [facility] Comment on above: Ordered: 07/21/2024 Human papilloma viru s DNA [Presence] in Unspecified specimen by Probe with amplification HPV DNA probe, amplified Microbiology Routine Well woman exam with routine gynecological exam Ordered: 09/18/2024 [facility] Comment on above: Ordered: 09/18/2024 Neisseria gonorrhoea e DNA [Presence] in Unspecified specimen by JESS with probe detection Neisseria gonorrhea DNA probe, direct Lab Routine STD exposure Ordered: 09/18/2024 [facility] Comment on above: Ordered: 09/18/2024 Reagin Ab [Presence] in Serum by RPR RPR Lab Routine Missed menses , unspecified gestational age Ordered: 07/21/2024 [facility] Comment on above: Ordered: 07/21/2024 Rubella antibody, IgG Rubella an tibody, IgG Lab Routine Missed menses , unspecified gestational age Ordered: 07/21/2024 [facility] Comment on above: Ordered: 07/21/2024 SURESWAB(R) ADVANCED VAGINITIS PLUS, TMA SURESWAB(R) ADVANCED VAGINITIS PLUS, TMA Pathology and Cytology Routine Vaginal discharge Ordered: 09/18/2024 [facility] Work Phone: Comment on above: Ordered: 09/18/2024 Payers Date Payer Category Payer Medicaid [facility] [id number] 2022 Medicaid [id number] 2019 Unknown [id number] 2017 Unknown 2014 Unknown [id number] 1990 Unknown [id number] 1990 Unknown [id number] 1990 Unknown [id number] 1990 Unknown [id number] [id number] 1990 Unknown [id number] [id number] 1990 Unknown [id number] [id number] 1990 Unknown [id number] [id number] 1990 Unknown [id number] 2.16.840.1.451694.3.579.2.9 1990 Unknown [id number] [id number] 1990 Unknown [id number] 2.16.840.1.698136.3.579.2.9 1990 Unknown [id number] [id number] 1990 Unknown [id number] [id number] 1990 Unknown [id number] [id number] 1990 Unknown [id number] [id number] 1959 Unknown [id number] Unknown [facility] [id number] Social History Date Type Detail Facility Start: 03-31-2023 End: 08-11-2023 Tobacco smoking status NHIS Never smoked tobacco (finding) [facility] Start: 1990 [facility] Assigned At Female [facility] Start: 06-08-2024 End: 09-08-2024 Sex Female (finding) [facility] Start: 03-31-2023 Tobacco use and exposure Smokeless tobacco non-user [facility] Start: 07-21-2024 End: 12-13-2024 Alcoholic beverage intake Current drinker of alcohol (finding) [facility] Start: 07-12-2024 History of Social function [facility] Start: 07-12-2024 Tobacco use panel [facility] Start: 03-31-2023 Alcohol Comment Occasional alcohol u se [facility] Start: 05-26-2024 [facility] Start: 04-22-2023 Gender identity Identifies as female gender (finding) [facility] Medical Equipment Procedure Code Equipment Code Equipment Origin al Text Equipment Identifier Dates 1 strip by In Vi tro route Daily Use in the morning prior to breakfast, 1 hour after each meal for a total of 4times daily. [id number] Start: 11-23-2024 End: 12-25-2024 1 each by In Vit ro route Daily Use to check FSBS four times daily [id number] Start: 11-23-2024 End: 12-23-2024 1 strip by In Vi tro route Daily Use in the morning prior to breakfast, 1 hour after each meal for a total of 4times daily. [id number] Start: 12-25-2024 End: 01-24-2025 Clinical Notes 04-21-2024 to 12-25-2024 Tala Huizar, NETBACKUP ADMIN - 12/25/2024 2:00 PM Payton Kelly, CAREER ADVISOR - 12/13/2024 2:30 PM Payton Kelly, CAREER ADVISOR - 11/28/2024 1:50 PM Payton Kelly, CAREER ADVISOR - 11/07/2024 1:20 PM EDT Note Date & Type Note Facility 12-25-2024 History of Presen t illness Narrative Reason for Appointment: Patient ID: Abram Villarreal is a 34 y.o. female who presents for Routine Visit Patient presents today for Return OB appointment. MEDICATIONS Current Outpatient Medications Medication Instructions albuterol HFA 90 mcg/act inhaler Every 4 hours Alcohol Swabs (Alcohol Prep Pad) 70 % pads 1 Pad, Topical, Daily, Use four times daily to check FSBS. Blood Glucose Monitoring Suppl (D-Care Glucometer) w/Device kit 1 kit, Does not apply, Daily, Use four times daily to check FSBS. In the morning prior to breakfast & 1 hour after each meal for a total of 4times daily. Multiple Vitamins-Minerals (MULTIVITAMIN ADULT, MINERALS, PO) Multivitamin Hneeycnc-Jwr-Nr-FA ( 1 + IRON PO) ALLERGIES Allergies [...] nursing note reviewed. Exam conducted with a director of recreation therapy present. Vitals: Estimated body mass index is 33.91 kg/m as calculated from the following: Height [...] Eric Holly DO documented in this encounter [facility] 12-13-2024 History of Presen t illness Narrative Reason for Appointment: Patient ID: Abram Villarreal is a 34 y.o. female who presents for Routine Visit Patient presents today for Return OB appointment. MEDICATIONS Current Outpatient Medications Medication Instructions albuterol HFA 90 mcg/act inhaler Every 4 hours Alcohol Swabs (Alcohol Prep Pad) 70 % pads 1 Pad, Topical, Daily, Use four times daily to check FSBS. Blood Glucose Monitoring Suppl (D-Care Glucometer) w/Device kit 1 kit, Does not apply, Daily, Use four times daily to check FSBS. In the morning prior to breakfast & 1 hour after each meal for a total of 4times daily. Glucose Blood (Blood Glucose Test) strip 1 strip, In Vitro, Daily, Use in the morning prior to breakfast, 1 hour after each meal for a total of 4times daily. iron polysaccharides (PROFE) 391.3 mg, Oral, Daily Lancets Ultra Thin misc 1 each, In Vitro, Daily, Use to check FSBS four times daily Multiple Vitamins-Minerals (MULTIVITAMIN ADULT, MINERALS, PO) Multivitamin Xuncodlh-Elb-Bb-FA ( 1 + IRON PO) ALLERGIES Allergies [...] nursing note reviewed. Exam conducted with a director of recreation therapy present. Vitals: Estimated body mass index is 34.78 kg/m as calculated from the following: Height as of 06/24/23: 5' 5 . Weight as of this encounter: 209 lb. BP: 120/78 Patient's last menstrual period was 05/14/2024. ASSESSMENT & PLAN ICD-10-CM 1. 30 weeks gestation of Z3A.30 POCT urinalysis dipstick manually resulted 2. Third trimester Z34.93 POCT urinalysis dipstick manually resulted Return OB: Patient presents today for a routine obstetrics appointment. Patient is currently 30w5d . Patient states she is doing well but has complaints of being tired due to current . Reviewed sugars with pt -good glucose control noted. Patient has verbalizes frequent movement. labor precautions was discussed/given and patient was instructed to perform kick counts three times a day. Orders Placed This Encounter Procedures POCT urinalysis dipstick manually resulted Follow Up: Patient is to return to office in 2 week for routine OB appointment. Documented by Libia Kelly LPN on behalf of: Eric Holly DO documented in this encounter [facility] 11-28-2024 History of Presen t illness Narrative Reason for Appointment: Patient ID: Abram Villarreal is a 33 y.o. female who presents for Routine Visit Patient presents today for Return OB appointment. MEDICATIONS Current Outpatient Medications Medication Instructions albuterol HFA 90 mcg/act inhaler Every 4 hours Alcohol Swabs (Alcohol Prep Pad) 70 % pads 1 Pad, Topical, Daily, Use four times daily to check FSBS. Blood Glucose Monitoring Suppl (D-Care Glucometer) w/Device kit 1 kit, Does not apply, Daily, Use four times daily to check FSBS. In the morning prior to breakfast & 1 hour after each meal for a total of 4times daily. Glucose Blood (Blood Glucose Test) strip 1 strip, In Vitro, Daily, Use in the morning prior to breakfast, 1 hour after each meal for a total of 4times daily. iron polysaccharides (PROFE) 391.3 mg, Oral, Daily Lancets Ultra Thin misc 1 each, In Vitro, Daily, Use to check FSBS four times daily Multiple Vitamins-Minerals (MULTIVITAMIN ADULT, MINERALS, PO) Multivitamin pantoprazole (ProtoNix) 20 MG EC tablet Pantoprazole Sodium Wybfijep-Wbi-Xt-FA ( 1 + IRON PO) ALLERGIES Allergies [...] nursing note reviewed. Exam conducted with a director of recreation therapy present. Vitals: Estimated body mass index is 34.61 kg/m as calculated from the following: Height as of 06/24/23: 5' 5 . Weight as of this encounter: 208 lb. BP: 120/76 Patient's last menstrual period was 05/14/2024. ASSESSMENT & PLAN ICD-10-CM 1. Third trimester Z34.93 2. 28 weeks gestation of Z3A.28 Return OB: Patient presents today for a routine obstetrics appointment. Patient is currently 28w4d . Patient states she is doing well but has complaints of being tired due to current . Patient has verbalizes frequent movement. labor precautions was discussed/given and patient was instructed to perform kick counts three times a day. Pt to test sugars for two weeks. No orders of the defined types were placed in this encounter. Follow Up: Patient is to return to office in 2 week for routine OB appointment. Documented by Libia Kelly LPN on behalf of: Eric Holly DO documented in this encounter [facility] 11-07-2024 History of Presen t illness Narrative Reason for Appointment: Patient ID: Abram Villarreal is a 33 y.o. female who presents for Routine Visit Patient presents today for Return OB appointment. MEDICATIONS Current Outpatient Medications Medication Instructions albuterol HFA 90 mcg/act inhaler Every 4 hours Multiple Vitamins-Minerals (MULTIVITAMIN ADULT, MINERALS, PO) Multivitamin pantoprazole (ProtoNix) 20 MG EC tablet Pantoprazole Sodium Rxcquzes-Fij-Tp-FA ( 1 + IRON PO) valACYclovir (VALTREX) 500 mg, Oral, Daily ALLERGIES Allergies Allergen Reactions Amoxicillin Hives and [...] nursing note reviewed. Exam conducted with a director of recreation therapy present. Vitals: Estimated body mass index is 35.11 kg/m as calculated from the following: Height as of 06/24/23: 5' 5 . Weight as of this encounter: 211 lb. BP: 122/72 Patient's last menstrual period was 05/14/2024. ASSESSMENT & PLAN ICD-10-CM 1. Second trimester Z34.92 POCT urinalysis dipstick manually resulted 2. 25 weeks gestation of Z3A.25 3. Diabetes mellitus screening Z13.1 CBC Glucose tolerance, 1 hour CBC Glucose tolerance, 1 hour Return OB: Patient presents today for a routine obstetrics appointment. Patient is currently 25w4d . Patient states she is doing well but has complaints of being tired due to current . Patient has verbalizes frequent movement. labor precautions was discussed/given and patient was instructed to perform kick counts three times a day. Orders Placed This Encounter Procedures CBC Glucose tolerance, 1 hour POCT urinalysis dipstick manually resulted Follow Up: Patient is to return to office in 3 week for routine OB appointment. Documented by Libia Kelly LPN on behalf of: Eric Holly DO documented in this encounter [facility] 09-18-2024 History of Presen t illness Narrative [...] nursing note reviewed. Exam conducted with a director of recreation therapy present. Vitals: Estimated body mass index is [...] of: PALLAVI Mccord documented in this encounter [facility] 08-21-2024 History of Presen t illness Narrative [...] or undercooked meat, and stay away from [facility]. Patient has been consulted regarding any [...] Eric Holly DO documented in this encounter [facility] 07-21-2024 History of Presen t illness Narrative [...] or undercooked meat, and stay away from [facility]. Patient has also been advised to [...] Keiko Bruce MA documented in this encounter [facility] 04-21-2024 Evaluation note Diagnosis Onset Date Resolution Acute right otitis media acute April 21, 2024 1:26pm Viral URI acute June 08, 2024 9:51am [facility] Work Phone: Evaluation note* Diagnosis Onset Date Resolution Status Strep throat acute [facility] Work Phone: Evaluation note* Diagnosis Onset Date Resolution Status Acute right otitis media acu te [facility] Work Phone: Evaluation note* Diagnosis Missed menses , unspecified gestational age Encounter for supervision of normal first in first trimester [facility] Diagnosis 14 weeks gestation of Second trimester state, incidental Tinea pedis, unspecified laterality History of pre-eclampsia History of anemia Personal history of diseases of blood and blood-forming organs documented [facility]* Diagnosis Onset Date Resolution Status Admit Date Viral URI with cough acute Febr uary 2024 3:37pm [facility] Work Phone: evaluation note* Diagnosis Well woman exam with routine gynecological exam Routine gynecological examination Second trimester state, incidental 18 weeks gestation of Vaginal discharge Leukorrhea, not specified as infective STD exposure Screening, , for anatomic survey Encounter for anatomic survey Sinusitis, unspecified chronicity, unspecified location documented in this encounter [facility]* Diagnosis Second trimester state, incidental 25 weeks gestation of Diabetes mellitus screening Screening for diabetes mellitus documented [facility]* Diagnosis Third trimester state, incidental 28 weeks gestation of documented [facility]* Diagnosis 30 weeks gestation of Third trimester state, incidental Gestational diabetes mellitus (GDM), antepartum, gestational diabetes method of control unspecified [facility] Diagnosis 32 weeks gestation of Third trimester state, incidental Gestational diabetes mellitus (GDM), antepartum, gestational diabetes method of control unspecified Elevated glucose tolerance test Impaired glucose tolerance test documented in this encounter [facility] Summary Purpose Family History Relationship Condition Age at Onset Recorded Date/T jeri father Heart disease Unknown mother High blood cholesterol Unknown Advance Directives Advance Directive Response Recorded Date/ Time Advance Directives No December 21 4 5:59pm Advance Directive Response Recorded Date/ Time Advance Directives No December 21 4 4:59pm Advance Directive Response Recorded Date/ Time [...] section and content) DATE CREATED AUTHOR 01/19/2018 [facility] DATE CREATED AUTHOR AUTHOR'S ORGANIZ ATION 01/19/2018 [facility] DATE CREATED AUTHOR AUTHOR'S ORGANIZ ATION 08/26/[address] [facility] DATE CREATED AUTHOR AUTHOR'S ORGANIZ ATION 12/02/2022 [facility] DATE CREATED AUTHOR AUTHOR'S ORGANIZ ATION 12/26/2024 [facility] Care Teams (unrecognized sec tion and content) Team Status: Active Member Role Status Dates Violet Cerda NP-Cruz Primary Care Provider Active Team Status: Inactive [...] June 08, 2024 End: June 08, 2024 Vat Cleaner Relationship Specialty Start Date End Date Cuco Munoz MD [address] [place] [address] PCP - General Family Medicine 06/24/23 Vat Cleaner Relationship Specialty Start Date End Date Cuco Munoz MD [address] [place] [facility] [address] PCP - General Family Medicine 06/24/23 Vat Cleaner Relationship Specialty Start Date End Date Cuco Munoz MD [address] [facility], [place] [id number] PCP - General Family Medicine 06/24/23 Vat Cleaner Relationship Specialty Start Date End Date Cuco Munoz MD [address] [facility] [place] [address] PCP - General Family Medicine 06/24/23 Team Status: Inactive Member Role Status Dates Violet Cerda NP-C Primary Care Provider Active Start: September 08, 2024 End: September 08, 2024 VI Nevarez Active Start: August End: September 08, 2024 Mayte Joiner APRN Attending Provider Active Start: September 08, 2024 End: September 08, 2024 Vat Cleaner Relationship Specialty Start Date End Date Cuco Munoz MD [address] [facility], [place] [id number] PCP - General Family Medicine 06/24/23 Vat Cleaner Relationship Specialty Start Date End Date Cuco Munoz MD [address] [facility] [place], [place] [id number] PCP - General Family Medicine 06/24/23 Vat Cleaner Relationship Specialty Start Date End Date Cuco Munoz MD [address] [place] [address] PCP - General Family Medicine 06/24/23 Vat Cleaner Relationship Specialty Start Date End Date Cuco Munoz MD [address] [place] [address] PCP - General Family Medicine 06/24/23 Vat Cleaner Relationship Specialty Start Date End Date Cuco Munoz MD [address] [place] [address] PCP - General Family Medicine 06/24/23 Vat Cleaner Relationship Specialty Start Date End Date Cuco Munoz MD [address] [place] [address] PCP - General Family Medicine 06/24/23 Vat Cleaner Relationship Specialty Start Date End Date Cuco Munoz MD [address] [place] [address] PCP - General Family Medicine 06/24/23 Vat Cleaner Relationship Specialty Start Date End Date Cuco Munoz MD [address] [place] [address] PCP - General Family Medicine 06/24/23 Vat Cleaner Relationship Specialty Start Date End Date Cuco Munoz MD [address] [place] [address] PCP - General Family Medicine 06/24/23 Vat Cleaner Relationship Specialty Start Date End Date Cuco Munoz MD [address] [place] [address] PCP - General Family Medicine 06/24/23 Vat Cleaner Relationship Specialty Start Date End Date Cuco Munoz MD [address] [place] [address] PCP - General Family Medicine 06/24/23 Vat Cleaner Relationship Specialty Start Date End Date Cuco Munoz MD [address] [place] [address] PCP - General Family Medicine 06/24/23 Goals [...] Routine Visit Well Women Visit STI Screening Reason Comments Routine Visit FOR RECORDS PERTAINING TO PATIENTS WHO [...] BE BASED ON THE PRIMARY CLINICAL RECORDS. [employer] provides no warranty or guarantee of the accuracy or completeness of information in this document.
[2024-12-30 11:47] VITALS: BP 119/68; PULSE 107
== END 2024-12-30 12:15 | disposition home or self-care (01) ==
LOC: FBCO 11:30 → FBC 11:42
PROVIDERS: Visit Provider Obstetrics & Gynecology
DX: O24.419 Gestational diabetes mellitus in pregnancy, unspecified control (principal); Z3A.33 33 weeks gestation of pregnancy
CPT/HCPCS: 59025

== ENCOUNTER 2025-01-03 15:50 | Outpatient (OUT) | payer MEDICAID, SELFPAY ==
--- OUTSIDE RECORDS SUMMARY | 2024-10-20 10:15 | XMS_ITS ---
Author Organization [facility] Serv es Address [address] [place] [address] Care Team Providers Care Funeral Arrangement Director Name Role Phone Suki Mayer Primary Care Provider Halley Nugent Unavailable Clare Talley Unavailable [phone] REASON FOR VISIT BH f/u 2-4 weeks Encounters Encounter Location Date Provider Diagnosis [facility] [address] [place] [address] 10/20/2024 Clare Talley Plan Of Treatment Next Appt Details Provider Name:Karin Knowles, 04/25/2025 03:00:00 PM, [address] [place], [address], Progress Notes * MOUNIKA NELSONNURIAOB:1990 (34 yo F)Acc No.[id number]:10/20/2024 BH F/U - Patient Patient: ABRAM PALOMO Provider: Gerard Talley :1990 A ge:33 Y S ex:Female Date:10/20/2024 Address[address] [place] Pcp:Suki Mayer Subjective: * Chief Complaints: * 1 . BH f/u 2-4 weeks. Objective: Therapeutic Interventions: Assessment: Plan: * Images: Care Plan Details* * Electronic signature of RISHI Torres on 01/03/2025 at 03:52 PM EDT Sign off status: Pending * Provider: Gerard Talley Date: 0 10/20/2024 Generated for Sujatha Rivera on: 0 01/03/2025 03:52 PM EDT
--- OUTSIDE RECORDS SUMMARY | 2024-12-25 14:00 | XMS_ITS | Encounter Summary ---
Author Organization [facility] Address [address] [place] [address] Care Team Providers Care Security Analyst Name Role Phone Cuco Munoz MD Primary Care Provider [phone] Reason for Visit * Reason Comments Routine Visit Encounter Details Date Type Department Care Team (Late st Contact Info) Description 12/25/2024 2:00 PM EDT Routine [facility] [address] [place] [id number] Eric Holly, DO [address] [place] [address] 32 weeks gestation of ; Third trimester ; Gestational diabetes mellitus (GDM), antepartum, gestational diabetes method of control unspecified; Elevated glucose tolerance test Social History Tobacco Use Types Packs/Day Years Used Date Smoking Tobacco: Never Smokeless Tobacco: Never Alcohol Use Standard Drinks/Week Comments Yes 0 (1 standard drink = 0.6 oz pur e alcohol) Occasional alcohol use Estimated Date of Delivery Comme nts Yes 02/16/2025 Based on Ultraso und Sex and Gender Information Value Date Recorded Sex Assigned at Female 04/22/2023 8:39 AM EDT Legal Sex Female 11:47 PM EDT Gender Identity Female 04/22/2023 8:39 AM EDT Sexual Orientation Not on file documented as of this encounter Last Filed Vital Signs Vital Sign Reading Time Taken Comments Blood Pressure 110/80 12/25/2024 2:28 PM EDT Pulse - - Temperature - - Respiratory Rate - - Oxygen Saturation - - Inhaled Oxygen Concentration - - Weight 92.4 kg (203 lb 12 oz) 12/25/2024 2:28 PM EDT Height - - Body Mass Index 33.91 06/24/2023 10:09 AM EST documented in this encounter Progress Notes * Tala Huizar NP - 12/25/2024 2:00 PM EDT Reason for Appointment: Patient ID: Lynnette Villarreal is a 34 y.o. female who presents for Routine Visit Patient presents today for Return OB appointment. MEDICATIONS Current Outpatient Medications Medication Instructions albuterol HFA 90 mcg/act inhaler Every 4 hours Alcohol Swabs (Alcohol Prep Pad) 70 % pads 1 Pad, Topical, Daily, Use four times daily to check FSBS. Blood Glucose Monitoring Suppl ([employer] Glucometer) w/Device kit 1 kit, Does not apply, Daily, Use four times daily to check FSBS. In the morning prior to breakfast & 1 hour after each meal for a total of 4times daily. Multiple Vitamins-Minerals (MULTIVITAMIN ADULT, MINERALS, PO) Multivitamin Hvanvsai-Hpo-Vh-FA ( 1 + IRON PO) ALLERGIES Allergies Allergen Reactions Amoxicillin Hives and Rash Other Reaction(s): hives, Unknown Azithromycin Hives and Rash Cefaclor Hives and Rash Clarithromycin Hives, Rash and Unknown Other Reaction(s): hives Doxycycline Hives and Rash Sulfa Antibiotics Hives and Rash Other Reaction(s): hives, Unknown Sulfamethoxazole-Trimethoprim Hives and Rash Other Reaction(s): hives, Unknown PROBLEMS Active Ambulatory Problems Diagnosis Date Noted [...] Exam Constitutional: Appearance: Normal appearance. She is well-developed. Cardiovascular: Rate and Rhythm: Normal rate and regular rhythm. Pulmonary: Effort: Pulmonary effort is normal. Breath sounds: Normal breath sounds. Abdominal: General: Bowel sounds are normal. There is no distension. Palpations: Abdomen is soft. Tenderness: There is no abdominal tenderness. There is no guarding or rebound. Musculoskeletal: General: No swelling. Normal range of motion. Right lower leg: No edema. Left lower leg: No edema. Neurological: Mental Status: She is alert and oriented to person, place, and time. Skin: General: Skin is warm and dry. Psychiatric: Mood and Affect: Mood normal. Behavior: Behavior normal. Vitals and nursing note reviewed. Exam conducted with a laboratory courier present. Vitals: Estimated body mass index is 33.91 kg/m?? as calculated from the following: Height as of 06/24/23: 5' 5 . Weight as of this encounter: 203 lb 12 oz. BP: 110/80 Patient's last menstrual period was 05/14/2024. ASSESSMENT & PLAN ICD-10-CM 1. 32 weeks gestation of Z3A.32 POCT urinalysis dipstick manually resulted 2. Third trimester Z34.93 Return OB: Patient presents today for a routine obstetrics appointment. Patient is currently 32w3d . Patient states she is doing well but has complaints of being tired due to current . Patient has verbalizes frequent movement. labor precautions was discussed/given and patient was instructed to perform kick counts three times a day. Orders Placed This Encounter Procedures POCT urinalysis dipstick manually resulted Follow Up: Patient is to return to office in 1 week for routine OB appointment. Documented by Tala Huizar NP on behalf of: Eric Holly DO documented in this encounter Plan of Treatment Upcoming Encounters Date Type Department Care Team (Late st Contact Info) Description 01/09/2025 1:40 PM EDT Routine [facility] [address] [place] [phone] Eric Holly, DO [address] [place] [address] documented as of this encounter Procedures Procedure Name Priority Date/Time Associated Diagnosis Comments POCT URINALYSIS DIPSTICK Routine 12/25/2024 2:32 PM EDT 32 weeks gestation of documented in this encounter Results * (ABNORMAL) POCT urinalysis dipstick manually resulted (12/25/2024 2:32 PM EDT) Color, UA Yellow Clarity, UA Clear Glucose, UA Negative Negative - 2000(110) ++++ mg/dL Bilirubin, UA Negative Negative - 4(70) +++ mg/dL Ketones, UA Positive Negative - 160(16) ++++ mg/dL Comment:15mg/dL Spec Grav, UA 1.010 1 - 1.03 Blood, UA Negative Negative - 50 Oscar/mcL pH, UA 6.0 5 - 9 Protein, UA Negative Negative - 2000(20) ++++ mg/dL Urobilinogen, UA 0.2 0.2 - 12 mg/dL Leukocytes, UA Positive Negative - 500+++ Mike/mcL Comment:small Nitrite, UA Negative Negative - Positive Urine 12/25/2024 2:32 PM EDT Eric Holly DO POINT OF CARE TEST ENTER/EDIT OR DERABLES Final Result documented in this encounter Visit Diagnoses Diagnosis 32 weeks gestation of Third trimester state, incidental Gestational diabetes mellitus (GDM), antepartum, gestational diabetes method of control unspecified Elevated glucose tolerance test Impaired glucose tolerance test documented in this encounter Care Teams Security Analyst Relationship Specialty Start Date End Date Cuco Munoz MD [address] [place], [place] [phone] PCP - General Family Medicine 06/24/23 documented as of this encounter
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
--- OUTSIDE RECORDS SUMMARY | 2025-01-03 15:52 | XMS_ITS | Clinical Summary ---
Author Organization [facility] Address [address] [place] [address] Care Team Providers Care Eyelet Riveter Name Role Phone Cuco Munoz MD Primary Care Provider [phone] Allergies Active Allergy Reactions Criticality Noted Date Comments Amoxicillin Hives,Rash Low 02/07/2017 Other Reaction(s): hives, Unknown Azithromycin Hives,Rash Low 02/07/2017 Cefaclor Hives,Rash Low 02/07/2017 Clarithromycin Hives,Rash,Unknown Low 02/07/2017 Other Reaction(s): hives Doxycycline Hives,Rash Low 06/24/2023 Sulfa Antibiotics Hives,Rash Low 02/06/2017 Other Reaction(s): hives, Unknown Sulfamethoxazole-Trimetho prim Hives,Rash Low 02/07/2017 Other Reaction(s): hives, Unknown Medications Ifgwdvhj-Qia-Hn-FA ( 1 + IRON PO) Active albuterol HFA 90 mcg/act inhaler every 4 (four) hours 025 Active Multiple Vitamins-Minerals (MULTIVITAMIN ADULT, MINERALS, PO) Multivitamin Active Alcohol Swabs (Alcohol Prep Pad) 70 % padsIndications:Ge stational diabetes mellitus (GDM), antepartum, gestational diabetes method of control unspecified,Elevat ed glucose tolerance test Apply 1 Pad topically Daily Use four times daily to check FSBS. 150 each 3 025 Active Blood Glucose Monitoring Suppl (ONE TOUCH ULTRA 2) w/Device kitIndications:Ges tational diabetes mellitus (GDM), antepartum, gestational diabetes method of control unspecified,Elevat ed glucose tolerance test USE FOUR TIMES DAILY TO CHECK FASTING BLOOD SUGAR. IN THE MORNING PRIOR TO BREAKFAST & 1 HOUR AFTER EACH MEAL FOR A TOTAL OF 4TIMES DAILY. 1 kit Active Glucose Blood (Blood Glucose Test) stripIndications:G estational diabetes mellitus (GDM), antepartum, gestational diabetes method of control unspecified,Elevat ed glucose tolerance test 1 strip by In Vitro route Daily Use in the morning prior to breakfast, 1 hour after each meal for a total of 4times daily. 150 strip 3 025 2024 Active Lancets Ultra Thin miscIndications:Ge stational diabetes mellitus (GDM), antepartum, gestational diabetes method of control unspecified,Elevat ed glucose tolerance test 1 each by In Vitro route Daily Use to check FSBS four times daily 150 each 3 025 2024 Active pantoprazole (ProtoNix) 20 MG EC tablet Pantoprazole Sodium 2024 Discontinued Lancets Ultra Thin miscIndications:Ge stational diabetes mellitus (GDM), antepartum, gestational diabetes method of control unspecified,Elevat ed glucose tolerance test 1 each by In Vitro route Daily Use to check FSBS four times daily 150 each 3 025 2024 Glucose Blood (Blood Glucose Test) stripIndications:G estational diabetes mellitus (GDM), antepartum, gestational diabetes method of control unspecified,Elevat ed glucose tolerance test 1 strip by In Vitro route Daily Use in the morning prior to breakfast, 1 hour after each meal for a total of 4times daily. 150 strip 3 025 2024 Discontinued(R michelle) Blood Glucose Monitoring Suppl (D-Care Glucometer) w/Device kitIndications:Ges tational diabetes mellitus (GDM), antepartum, gestational diabetes method of control unspecified,Elevat ed glucose tolerance test 1 kit Daily Use four times daily to check FSBS. In the morning prior to breakfast & 1 hour after each meal for a total of 4times daily. 1 kit 025 2024 Discontinued iron polysaccharides (ProFe) 391.3 (180 Fe) MG capsuleIndications :Abnormal blood level of iron Take 1 capsule (391.3 mg) by mouth Daily 30 capsule 6 025 2024 Active Problems Problem Noted Date Diagnosed Date History of anemia 08/21/2024 Tinea pedis 08/21/2024 History of pre-eclampsia 08/21/2024 Second trimester 08/21/2024 Estimated Date of Delivery Comme nts Yes 02/16/2025 Based on Ultraso und Encounters Date Type Department Care Team Description 01/01/2025 Telephone [facility] [address] [place] [address] [place] [address] Priscila Landry MA 12/27/2024 Clinisync Result Encounter [facility] External Department Unsolicited Kermit Holly, 12/27/2024 Clinisync Result Encounter [facility] External Department Unsolicited Kermit Holly, 12/25/2024 2:00 PM EDT Routine [facility] OB [address] [place] [address] Kermit Holly, 32 weeks gestation of ; Third trimester ; Gestational diabetes mellitus (GDM), antepartum, gestational diabetes method of control unspecified; Elevated glucose tolerance test 12/25/2024 Refill [facility] OB [address] [place], [place] [address] [address] Kermit Holly, Gestational diabetes mellitus (GDM), antepartum, gestational diabetes method of control unspecified; Elevated glucose tolerance test 12/22/2024 Travel 12/13/2024 2:30 PM EDT Routine [facility] [place] [facility] [place] [address] Kermit Holly, 30 weeks gestation of ; Third trimester ; Gestational diabetes mellitus (GDM), antepartum, gestational diabetes method of control unspecified 12/13/2024 Bamboo flowsheet [facility] [place] [facility] [place] [address] Kermit Holly, 12/10/2024 Travel 11/28/2024 1:50 PM EDT Routine [facility] [place] [facility] [place] [address] Kermit Holly, Third trimester ; 28 weeks gestation of 11/28/2024 Bamboo flowsheet [facility] OB [address] [place] [address] [place] [address] Kermit Holly, DO 11/25/2024 Travel 11/23/[address] [address] [place] [address] Keiko Bruce MA 11/23/2024 Clinisync Result Encounter [facility] External Department Unsolicited Kermit Holly, DO 11/16/2024 Clinisync Result Encounter [facility] External Department Unsolicited Kermit Holly, DO 11/07/2024 1:20 PM EDT Routine [facility] OB [address] [place] [address] [place] [address] Kermit Holly, Second trimester ; 25 weeks gestation of ; Diabetes mellitus screening 11/07/2024 Bamboo flowsheet [facility] OB [address] [place] [address] [place] [address] Kermit Holly, DO 11/05/2024 Travel 10/27/2024 Clinisync Result Encounter [facility] External Department Unsolicited Kermit Holly, DO 10/09/2024 8:30 AM EDT Routine [facility] [address] [place] [address] Kermit Holly, DO Second trimester ; 21 weeks gestation of ; Encounter for follow-up ultrasound of anatomy; HSV infection 10/09/2024 Bamboo flowsheet [facility] OB [address] [place] [address] [place] [address] Kermit Holly, DO 10/08/2024 Travel 10/06/2024 Clinisync Result Encounter [facility] External Department Unsolicited Loraine Hillman PA 10/06/2024 Clinisync Result Encounter [facility] External Department Unsolicited Loraine Hillman PA 10/05/2024 Telephone [facility] OB [address] [place] [address] [place] [phone] Priscila Landry MA 10/03/[address] [address] [place] [address] Priscila Landry MA from Last 3 Months Social History Tobacco Use Types Packs/Day Years Used Date Smoking Tobacco: Never Smokeless Tobacco: Never Tobacco Cessation:Counseling Given: Not Answered Alcohol Use Standard Drinks/Week Comments Yes 0 [...] AM EDT Sexual Orientation Not on file Last Filed Vital Signs Vital Sign Reading Time Taken Comments Blood Pressure 110/80 12/25/2024 2:28 PM EDT Pulse - - Temperature - - Respiratory Rate - - Oxygen Saturation - - Inhaled Oxygen Concentration - - Weight 92.4 kg (203 lb 12 oz) 12/25/2024 2:28 PM EDT Height 165.1 cm (5' 5 ) 06/24/2023 10:09 AM EST Body Mass Index 33.91 06/24/2023 10:09 AM EST Plan of Treatment Upcoming Encounters Date Type Department Care Team (Late st Contact Info) Description 01/09/2025 1:40 PM EDT [address]ine [facility] [address] [place] [address] Kermit Holly, [address] [place], [place] [id number] Health Maintenance Due Date Last Done Comments Influenza Vaccine (Season Ended) 2025 Cervical Cancer Screening 09/18/2025 HPV/Cotest 09/18/2025 Pap Smear 09/18/2025 09/18/2024 Procedures Procedure Name Priority Date/Time Associated Diagnosis Comments US OB GROWTH 12/27/2024 7:37 PM EDT US OB BPP W NON-STRESS 12/27/2024 7:37 PM EDT POCT URINALYSIS DIPSTICK Routine 12/25/2024 2:32 PM EDT 32 weeks gestation of POCT URINALYSIS DIPSTICK Routine 12/13/2024 3:07 PM EDT 30 weeks gestation of Third trimester GLUCOSE 1 HOUR Routine 11/23/2024 10:40 AM EDT ALL CBC WITH AUTO DIFF Routine 11/23/2024 10:40 AM EDT TBH UA (CLEAN/CATCH) KNIFEMAN/MICRO IF IND. Routine 11/16/2024 7:27 PM EDT POCT URINALYSIS DIPSTICK Routine 11/07/2024 1:47 PM EDT Second trimester US OB INCOMPLETE ANATOMY 10/27/2024 7:11 PM EDT POCT URINALYSIS DIPSTICK Routine 10/09/2024 8:53 AM EDT Second trimester US OB ANATOMY 10/06/2024 10:21 PM EDT US OB CERVICAL LENGTH 10/06/2024 10:18 PM EDT PAP SMEAR Routine 09/18/2024 12:00 AM EST from Last 3 Months or Most Recently Relevant to Health Maintenance Results * US OB GROWTH (12/27/2024 7:37 PM EDT) Anatomical Region Laterality Modality Other 12/27/2024 7:37 PM EDT Narrative 12/27/2024 7:40 PM EDT The [address] [address] Ultrasound Report Signed Patient: LYNNETTE NELSON MR#: [id number] : 1990 Acct:[id number] Age/Sex: 34 / F ADM Date: 12/27/24 Loc: US Attending Dr: Kermit Holly D.O. Ordering Physician: Kermit Holly D.O. Date of Service: 12/27/24 Procedure(s): US OB growth Accession Number(s): [id number] cc: Kermit Holly D.O.; Physician,Non-Staff [place] [facility] [place] [id number] Patient Name: LYNNETTE NELSON MRN: [id number]:[id number] date: 1990 Sex: F Assigned Patient Location: US Current Patient Location: Accession/Order Number: [id number] Exam Date: 12/27/2024 19:33 Report Date: 12/27/2024 19:37 At the request of: KERMIT HOLLY DO Procedure: US OB growth Ultrasound [...] Chaudhari M.D. 12/27/2024 7:37 PM Dictation Location: [place] [address] Electronically authenticated by: [id number] Y Date: 12/27/2024 19:37 Dictated By: David Chaudhari D.O. Signed By: 12/27/241939 DD/ 36 TD/TT: [employer] Supervisor: Procedure Note Radiology, Radiologist, MD - 12/28/2024 [place] [address] Ultrasound Report Signed Patient: LYNNETTE NELSON RMR#: [id number] : 1990Acct:[id number] Age/Sex: 34 / FADM Date: 12/27/24 Loc: US Attending Dr: Kermit Holly D.O. Ordering Physician: Kermit Holly D.O. Date of Service: 12/27/24 Procedure(s): US OB growth Accession Number(s): [id number] cc: Kermit Holly D.O.; Physician,Non-Staff [place] [facility] [place] [id number] Patient Name: LYNNETTE NELSON MRN: [id number] date: 1990 Sex: F Assigned Patient Location: US Current Patient Location: Accession/Order Number: [id number] Exam Date: 12/27/2024 19:33 Report Date: 12/27/2024 19:37 At the request of: KERMIT HOLLY DO Procedure: US OB growth Ultrasound biophysical profile HISTORY: Gestational diabetes Adequate breathing movement, gross body movement, tone and amniotic fluid volume for total score of 8 out of 8. The amniotic fluidindex is 16.6cm within normal limits. The heart rate 140 bpm. US/US OB growth IMPRESSION: Adequate ultrasound biophysical profile Impression dictated by: David Chaudhari M.D. 12/27/2024 7:37 PM Dictation Location: [place] [address] Electronically authenticated by: [id number] Y Date: 9:37 Dictated By: David Chaudhari D.O. Signed By:12/27/241939 DD/ 36 TD/TT: [employer] Supervisor: us Kermit Holly DO [facility] Final Result * US OB BPP W NON-STRESS (12/27/2024 7:37 PM EDT) Anatomical Region Laterality Modality Other 12/27/2024 7:37 PM EDT Narrative 12/27/2024 7:40 PM EDT The [address] [address] Ultrasound Report Signed Patient: LYNNETTE NELSON MR#: [id number] : 1990 Acct:[id number] Age/Sex: 34 / F ADM Date: 12/27/24 Loc: US Attending Dr: Kermit Holly D.O. Ordering Physician: Kermit Holly D.O. Date of Service: 12/27/24 Procedure(s): US OB BPP w non-stress Accession Number(s): [id number] cc: Kermit Holly D.O.; Physician,Non-Staff [place] [facility] [place] [id number] Patient Name: LYNNETTE NELSON MRN: [facility]:[id number] date: 1990 Sex: F Assigned Patient Location: US Current Patient Location: Accession/Order Number: [id number] Exam Date: 12/27/2024 19:33 Report Date: 12/27/2024 19:37 At the request of: KERMIT HOLLY DO Procedure: US OB growth Ultrasound [...] Chaudhari M.D. 12/27/2024 7:37 PM Dictation Location: [place] [address] Electronically authenticated by: [id number] Y Date: 12/27/2024 19:37 Dictated By: David Chaudhari D.O. Signed By: 12/27/241939 DD/ 36 TD/TT: [employer] Supervisor: Procedure Note Radiology, Radiologist, MD - 12/28/2024 [place] [address] Ultrasound Report Signed Patient: LYNNETTE NELSON RMR#: [id number] : 1990Acct:[id number] Age/Sex: 34 / FADM Date: 12/27/24 Loc: US Attending Dr: Kermit Holly D.O. Ordering Physician: Kermit Holly D.O. Date of Service: 12/27/24 Procedure(s): US OB BPP w non-stress Accession Number(s): [id number] cc: Kermit Holly D.O.; Physician,Non-Staff [place] [address] [address] Patient Name: LYNNETTE NELSON MRN: [id number] date: 1990 Sex: F Assigned Patient Location: US Current Patient Location: Accession/Order Number: [id number] Exam Date: 12/27/2024 19:33 Report Date: 12/27/2024 19:37 At the request of: KERMIT HOLLY DO Procedure: US OB growth Ultrasound biophysical profile HISTORY: Gestational diabetes Adequate breathing movement, gross body movement, tone and amniotic fluid volume for total score of 8 out of 8. The amniotic fluidindex is 16.6cm within normal limits. The heart rate 140 bpm. US/US OB BPP w non-stress IMPRESSION: Adequate ultrasound biophysical profile Impression dictated by: David Chaudhari M.D. 12/27/2024 7:37 PM Dictation Location: [place] [address] Electronically authenticated by: [id number] Y Date: 9:37 Dictated By: David Chaudhari D.O. Signed By:12/27/241939 DD/ 36 TD/TT: [employer] Supervisor: us Kermit Holly DO [facility] Final Result * (ABNORMAL) POCT urinalysis dipstick manually resulted (12/25/2024 2:32 PM EDT) Only the most recent of4 resultswithin the time period is included. Color, UA Yellow Clarity, UA Clear Glucose, UA Negative Negative - 2000(110) ++++ mg/dL Bilirubin, UA Negative Negative - 4(70) +++ mg/dL Ketones, UA Positive Negative - 160(16) ++++ mg/dL Comment:15mg/dL Spec Grav, UA 1.010 1 - 1.03 Blood, UA Negative Negative - 50 Oscar/mcL pH, UA 6.0 5 - 9 Protein, UA Negative Negative - 1999(20) ++++ mg/dL Urobilinogen, UA 0.2 0.2 - 12 mg/dL Leukocytes, UA Positive Negative - 500+++ Mike/mcL Comment:small Nitrite, UA Negative Negative - Positive Urine 12/25/2024 2:32 PM EDT Kermit Elayne DO POINT OF CARE TEST ENTER/EDIT OR DERABLES Final Result * (ABNORMAL) GLUCOSE 1 HOUR (11/23/2024 10:40 AM EDT) GLUCOSE 1 HOUR 191(H) <130 mg/dL TBH 11/23/2024 10:4 0 AM EDT 11/23/2024 10:42 AM EDT Narrative [facility] - 11/23/2024 11:31 AM EDT Kermit Elayne DO LAB BLOOD ORDERABLES Final Resul t [facility] * (ABNORMAL) ALL CBC WITH AUTO DIFF (11/23/2024 10:40 AM EDT) Pathologist [facility] TB WBC 9.0 4.0 - 11.0 10 3/uL TB[facility] TB RBC 3.58(L) 4.20 - 5.40 10 6/uL TBH TBH HGB 10.0(L) 12.0 - 16.0 g/dL TB TB HCT 30.0(L) 36.0 - 48.0 % [facility] TBH MCV 83.8 81.0 - 99.0 fL TBH TBH MCH 27.9 26.7 - 34.0 pg TBH TBH MCHC 33.3 29.9 - 35.2 g/dL TBH TBH RDW 13.4 11.0 - 15.0 % TBH TBH PLT 417 150 - 450 10 3/uL TBH TBH MPV 10.0 9.5 - 13.5 fL TBH NEUTROPHILS PERCENT AUTO 76.3(H) 43.0 - 75.0 % TBH LYMPHOCYTES PERCENT AUTO 14.0(L) 20.5 - 60.0 % TBH MONOCYTES PERCENT AUTO 6.5 1.7 - 12.0 % TBH TBH EO % 1.7 0.9 - 7.0 % TBH BASOPHILS PERCENT AUTO 0.6 0.2 - 2.0 % TBH IMMATURE GRANULOCYTES PCT AUTO 0.9(H) 0.0 - 0.5 % TBH NEUTROPHILS ABSOLUTE AUTO 6.9(H) 1.4 - 6.5 10 3/uL TBH LYMPHOCYTES ABSOLUTE AUTO 1.3 1.2 - 3.8 10 3/uL TBH MONOCYTES ABSOLUTE AUTO 0.6 0.3 - 0.8 10 3/uL TBH TBH EO # 0.2 0.0 - 0.7 10 3/uL TBH BASOPHILS ABSOLUTE AUTO 0.1 0.0 - 0.1 10 3/uL TBH IMMATURE GRANULOCYTES ABS AUTO 0.08(H) 0.00 - 0.03 10 3/uL [facility] 11/23/2024 10:4 0 AM EDT 11/23/2024 10:42 AM EDT Narrative [facility] - 11/23/2024 10:52 AM EDT Kermit Elayne DO [facility] * [facility] UA (CLEAN/CATCH) KNIFEMAN/MICRO IF IND. (11/16/2024 7:27 PM EDT) COLOR URINE LT. YELLOW YELLOW TBH CLARITY URINE CLEAR CLEAR TBH SPECIFIC GRAVITY URINE 1.020 1.005 - 1.025 TBH PH URINE 6.0 5.0 - 9.0 TBH PROTEIN URINE NEGATIVE NEG/TRACE mg/dL TBH GLUCOSE URINE UA NEGATIVE NEGATIVE mg/dL TB[facility] BILIRUBIN URINE NEGATIVE NEGATIVE TBH KETONES URINE NEGATIVE NEGATIVE mg/dL TBH BLOOD URINE NEGATIVE NEGATIVE TBH NITRITE URINE NEGATIVE NEGATIVE TBH UROBILINOGEN URINE 0.2 0.2 - 1.0 EU/dL TBH LEUKOCYTE ESTERASE URINE NEGATIVE NEGATIVE TBH URINE MICROSCOPIC INDICATED NO [facility] 11/16/2024 7:27 PM EDT 11/16/2024 8:09 PM EDT Narrative [facility] - 11/16/2024 8:12 PM EDT Kermit Holly DO [facility] Final Result [facility] * US OB INCOMPLETE ANATOMY (10/27/2024 7:11 PM EDT) Anatomical Region Laterality Modality Other 10/27/2024 7:11 PM EDT Narrative 10/27/2024 7:14 [place] [address] Ultrasound Report Signed Patient: LYNNETTE NELSON MR#: [id number] : 1990 Acct:[id number] Age/Sex: 33 / F ADM Date: 10/27/24 Loc: US Attending Dr: Kermit Holly D.O. Ordering Physician: Kermit Holly D.O. Date of Service: 10/27/24 Procedure(s): US OB incomplete anatomy Accession Number(s): [id number] cc: Kermit Holly D.O.; Physician,Non-Staff [place] [facility] [place] [id number] Patient Name: LYNNETTE NELSON MRN: [id number] date: 1990 Sex: F Assigned Patient Location: US Current Patient Location: US Accession/Order Number: [id number] Exam Date: 10/27/2024 19:10 Report Date: 10/27/2024 19:11 At the request of: KERMIT HOLLY DO Procedure: US OB incomplete anatomy [...] David Chaudhari M.D.10/27/2024 7:11 PM Dictation Location: [facility] Electronically authenticated by: [id number] Y Date: 10/27/2024 19:11 Dictated By: David Chaudhari D.O. Signed By: 10/27/241913 DD/ 10 TD/TT: [employer] Supervisor: Procedure Note Radiology, Radiologist, - 10/27/2024 [place] [address] Ultrasound Report Signed Patient: LYNNETTE NELSON RMR#: [id number] : 1990Acct:[id number] Age/Sex: 33 / FADM Date: 10/27/24 Loc: US Attending Dr: Kermit Holly D.O. Ordering Physician: Kermit Holly D.O. Date of Service: 10/27/24 Procedure(s): US OB incomplete anatomy Accession Number(s): [id number] cc: Kermit Holly D.O.; Physician,Non-Staff [facility] [place] [address] Patient Name: LYNNETTE NELSON MRN: [facility]:[id number] date: 1990 Sex: F Assigned Patient Location: US Current Patient Location: US Accession/Order Number: [id number] Exam Date: 10/27/2024 19:10 Report Date: 10/27/2024 19:11 At the request of: KERMIT HOLLY DO Procedure: US OB incomplete anatomy Limited ultrasound HISTORY: Follow-up assessment of anatomy Fetus in breech presentation with variable lie. Amniotic fluidsubjectively normal. The heart rate 148 bpm. There is visualization of 4chambered heart, right ventricular outflow track and left ventricular outflow track. US/US OB incomplete anatomy IMPRESSION: Visualization of four-chamber heart and right and leftventricular outflow tracts. Impression dictated by: David Chaudhari M.D.10/27/2024 7:11 PM Dictation Location: [facility] Electronically authenticated by: [id number] Y Date: 9:11 Dictated By: David Chuadhari D.O. Signed By:10/27/241913 DD/ 10 TD/TT: [employer] Supervisor: us [facility] DO [facility] Final Result * US OB ANATOMY (10/06/2024 10:21 PM EDT) Anatomical Region Laterality Modality Other 10/06/2024 10:2 1 PM EDT Narrative 10/06/2024 10:24 [place] [address] Ultrasound Report Signed Patient: LYNNETTE NELSON MR#: [id number] : 1990 Acct:[id number] Age/Sex: 33 / F ADM Date: 10/06/24 Loc: US Attending Dr: Loraine Hillman Ordering Physician: Loraine Hillman Date of Service: 10/06/24 Procedure(s): US OB anatomy Accession Number(s): [id number] cc: Loraine Hillman; Physician,Non-Staff [facility] [place] [id number] Patient Name: LYNNETTE NELSON MRN: [id number] date: 1990 Sex: F Assigned Patient Location: US Current Patient Location: US Accession/Order Number: [id number] Exam Date: 10/06/2024 22:19 Report Date: 10/06/2024 22:21 At the request of: LORAINE HILLMAN Procedure: US OB anatomy Ultrasound assessment of cervical length. The length of the cervix is 5.2 cm. The cervix is closed. US/US OB anatomy IMPRESSION: Cervical length 5.2 cm. Impression dictated by: David Chaudhari M.D.10/06/2024 10:21 PM Dictation Location: [place] [address] Electronically authenticated by: [id number] Y Date: 10/06/2024 22:21 Dictated By: David Chaudhari D.O. Signed By: 10/06/242223 DD/ 20 TD/TT: [employer] Supervisor: Procedure Note Radiology, Radiologist, - 10/06/2024 [place] [address] Ultrasound Report Signed Patient: LYNNETTE NELSON RMR#: [id number] : 1990Acct:[id number] Age/Sex: 33 / FADM Date: 10/06/24 Loc: US Attending Dr: Loraine Hillman Ordering Physician: Loraine Hillman Date of Service: 10/06/24 Procedure(s): US OB anatomy Accession Number(s): [id number] cc: Loraine Hillman; Physician,Non-Staff [place] The [address] [address] Patient Name: LYNNETTE NELSON MRN: [id number]:[id number] date: 1990 Sex: F Assigned Patient Location: US Current Patient Location: US Accession/Order Number: [id number] Exam Date: 10/06/2024 22:19 Report Date: 10/06/2024 22:21 At the request of: LORAINE HILLMAN Procedure: US OB anatomy Ultrasound assessment of cervical length. The length of the cervix is 5.2 cm. The cervix is closed. US/US OB anatomy IMPRESSION: Cervical length 5.2 cm. Impression dictated by: David Chaudhari M.D.10/06/2024 10:21 PM Dictation Location: [place] [address] Electronically authenticated by: [id number] Y Date: 2:21 Dictated By: David Chaudhari D.O. Signed By:10/06/242223 DD/ 20 TD/TT: [employer] Supervisor: us Loraine OLIVO [facility] Final Result * US OB CERVICAL LENGTH (10/06/2024 10:18 PM EDT) Anatomical Region Laterality Modality Other 10/06/2024 10:1 8 PM EDT Narrative 10/06/2024 10:21 PM EDT The [address] [address] Ultrasound Report Signed Patient: LYNNETTE NELSON MR#: [id number] : 1990 Acct:[id number] Age/Sex: 33 / F ADM Date: 10/06/24 Loc: US Attending Dr: Loraine Hillman Ordering Physician: Loraine Hillman Date of Service: 10/06/24 Procedure(s): US OB cervical length Accession Number(s): [id number] cc: Loraine Hillman; Physician,Non-Staff M[facility] [place] [address] Patient Name: LYNNETTE NELSON MRN: [id number] date: 1990 Sex: F Assigned Patient Location: Current Patient Location: US Accession/Order Number: [id number] Exam Date: 10/06/2024 22:11 Report Date: 10/06/2024 22:18 At the request of: LORAINE HILLMAN Procedure: US OB cervical length Obstetrical ultrasound for assessment of anatomy HISTORY: anatomy assessment Fetus in breech presentation.. Variable lie. Amniotic fluid is subjectively normal. Placenta is posterior and marginal. Placental grade is 0. Cervical length is 5.2 cm. The cervix is closed. The heart rate is 141 bpm. There is adequate visualization of the lateral ventricles, cerebellum, posterior fossa, nose and lips, orbits, diaphragm, stomach, kidneys, abdominal cord insertion, urinary bladder, umbilical arteries, three-vessel cord, spine and extremities. There is suboptimal assessment of the four-chamber heart and the right and left ventricular outflow tract due to positioning. The estimated weight is 378.9 g which is 34.6%. Estimated date of delivery 02/16/2025 US/US OB cervical length IMPRESSION: Suboptimal assessment of the four-chamber heart in the right and left ventricular outflow tract secondary to positioning. Consider repeat imaging. Remaining anatomy adequately visualized. Marginal placenta. Breech presentation of the fetus with variable lie. Impression dictated by: David Chaudhari M.D.10/06/2024 10:18 PM Dictation Location: [facility] Electronically authenticated by: [id number] Y Date: 10/06/2024 22:18 Dictated By: David Chaudhari D.O. Signed By: 10/06/242220 DD/ 17 TD/TT: [employer] Supervisor: Procedure Note Radiology, Radiologist, - 10/06/2024 [place] [address] Ultrasound Report Signed Patient: LYNNETTE NELSON RMR#: [id number] : 1990Acct:[id number] Age/Sex: 33 / FADM Date: 10/06/24 Loc: US Attending Dr: Loraine Hillman Ordering Physician: Loraine Hillman Date of Service: 10/06/24 Procedure(s): US OB cervical length Accession Number(s): [id number] cc: Loraine Hillman; Physician,Non-Staff MPhillip The [place] [address] Patient Name: LYNNETTE NELSON MRN: [id number] date: 1990 Sex: F Assigned Patient Location: US Current Patient Location: US Accession/Order Number: [id number] Exam Date: 10/06/2024 22:11 Report Date: 10/06/2024 22:18 At the request of: LORAINE HILLMAN Procedure: US OB cervical length Obstetrical ultrasound for assessment of anatomy HISTORY: anatomy assessment Fetus in breech presentation.. Variable lie. Amniotic fluid is subjectively normal. Placenta is posterior and marginal. Placental gradeis 0. Cervical length is 5.2 cm. The cervix is closed. The heartrate is 141 bpm. There is adequate visualization of the lateral ventricles, cerebellum, posterior fossa, nose and lips, orbits, diaphragm, stomach, kidneys, abdominal cord insertion, urinary bladder, umbilical arteries, three-vessel cord, spine and extremities. There is suboptimal assessmentof the four-chamber heart and the right and left ventricular outflow tractdue to positioning. The estimated weight is 378.9 g which is 34.6%. Estimated date of delivery 02/16/2025 US/US OB cervical length IMPRESSION: Suboptimal assessment of the four-chamber heart in the rightand left ventricular outflow tract secondary to positioning. Consider repeat imaging. Remaining anatomy adequately visualized. Marginal placenta. Breech presentation of the fetus with variable lie. Impression dictated by: David Chaudhari M.D.10/06/2024 10:18 PM Dictation Location: [place] [address] Electronically authenticated by: [id number] Y Date: 2:18 Dictated By: David Chaudhari D.O. Signed By:10/06/242220 DD/ 17 TD/TT: Slitting And Shipping Supervisor: us Loraine OLIVO [facility] Final Result * Pap Smear (09/18/2024 12:00 AM EST) Swab Cervical swab / Unknown us Loraine OLIVO LAB CYTOLOGY ORDERABLES Final Re sult EXTERNAL LAB from Last 3 Months or Most Recently Relevant to Health Maintenance Insurance [facility] MEDICAID [place] Care Teams Eyelet Riveter Relationship Specialty Start Date End Date Cuco Munoz MD [address] [place] [address] PCP - General Family Medicine 06/24/23
--- OUTSIDE RECORDS SUMMARY | 2025-01-03 15:53 | XMS_ITS | Encounter Summary ---
Author Organization [facility] Address [address] [place] [address] Care Team Providers Care Greeter Guest Services Name Role Phone Cuco Munoz MD Primary Care Provider [phone] Encounter Details Date Type Department Care Team (Late st Contact Info) Description 12/27/2024 Clinisync Result Encounter [facility] External Department Unsolicited Kermit Holly, DO [address], [facility] Social History Tobacco Use Types Packs/Day Years [...] on file documented as of this encounter Plan of Treatment Upcoming Encounters Date Type Department Care Team (Late st Contact Info) Description 01/09/2025 1:40 PM EDT Routine [facility] OB [address] [place] [phone] Kermit Holly DO [address] [place] [address] [place] [address] documented as of this encounter Procedures Procedure Name Priority Date/Time Associated Diagnosis Comments US OB GROWTH 12/27/2024 7:37 PM EDT documented in this encounter Results * US OB GROWTH (12/27/2024 7:37 PM EDT) Anatomical Region Laterality Modality Other 12/27/2024 7:37 PM EDT Narrative 12/27/2024 7:40 [place] [address] Ultrasound Report Signed Patient: LYNNETTE NELSON MR#: [id number] : 1990 Acct:[id number] Age/Sex: 34 / F ADM Date: 12/27/24 Loc: US Attending Dr: Kermit Holly D.O. Ordering Physician: Kermit Holly D.O. Date of Service: 12/27/24 Procedure(s): US OB growth Accession Number(s): [id number] cc: Kermit Holly D.O.; Physician,Non-Staff [place] [address] Patient Name: LYNNETTE NELSON MRN: [facility]:[id number] date: 1990 Sex: F Assigned Patient Location: US Current Patient Location: Accession/Order Number: [id number] Exam Date: 12/27/2024 19:33 Report Date: 12/27/2024 [...] Chaudhari M.D. 12/27/2024 7:37 PM Dictation Location: [place] [address] Electronically authenticated by: [id number] Y Date: 12/27/2024 19:37 Dictated By: David Chaudhari D.O. Signed By: 12/27/241939 DD/ 36 TD/TT: Pork Cutlet Maker: Procedure Note Radiology, Radiologist, - 12/28/2024 [place] [address] Ultrasound Report Signed Patient: LYNNETTE NELSON RMR#: [id number] : 1990Acct:[id number] Age/Sex: 34 / FADM Date: 12/27/24 Loc: US Attending Dr: Kermit Holly D.O. Ordering Physician: Kermit Holly D.O. Date of Service: 12/27/24 Procedure(s): US OB growth Accession Number(s): [id number] cc: Kermit Holly D.O.; Physician,Non-Staff [place] [address] Patient Name: LYNNETTE NELSON MRN: [id number] date: 1990 Sex: F Assigned Patient Location: US Current Patient Location: Accession/Order Number: [id number] Exam Date: 12/27/2024 19:33 Report Date: 12/27/2024 [...] Chaudhari M.D. 12/27/2024 7:37 PM Dictation Location: [place] [address] Electronically authenticated by: [id number] Y Date: 9:37 Dictated By: David Chaudhari D.O. Signed By:12/27/241939 DD/ 36 TD/TT: Pork Cutlet Maker: us Kermit Holly DO [facility] Final Result documented in this encounter Visit Diagnoses Not on filedocumented in this encounter Care Teams Greeter Guest Services Relationship Specialty Start Date End Date Cuco Munoz MD [address] [place] [address] PCP - General Family Medicine 06/24/23 documented as of this encounter
--- OUTSIDE RECORDS SUMMARY | 2025-01-03 15:53 | XMS_ITS | Encounter Summary ---
Author Organization [facility] Address [address] [facility] [place] [address] Care Team Providers Care Gas Welding Equipment Mechanic Name Role Phone Cuco Munoz MD Primary Care Provider [phone] Reason for Visit * Reason Comments Med Refill Encounter Details Date Type Department Care Team (Late st Contact Info) Description 12/25/2024 Refill [facility] OB [address] [facility] [place] [address] Eric Holly, DO [address] [facility] [address] Uri[address], [facility]11 Gestational diabetes mellitus (GDM), antepartum, gestational diabetes [...] on file documented as of this encounter Miscellaneous Notes * Telephone Encounter - Mariluz Doshi LPN - 12/27/2024 8:33 AM EDT Script received for glucose yet script sent documented in this encounter Plan of Treatment Upcoming Encounters Date Type Department Care Team (Late st Contact Info) Description 01/09/2025 1:40 PM EDT Routine [facility] OB [address] [facility] [place] [address] Eric Holly, [address] [facility] [place] [address] documented as of this encounter Visit Diagnoses Diagnosis Gestational diabetes mellitus (GDM), antepartum, gestational diabetes method of control unspecified Elevated glucose tolerance test Impaired glucose tolerance test documented in this encounter Care Teams Gas Welding Equipment Mechanic Relationship Specialty Start Date End Date Cuco Munoz MD [address] [place] [address] PCP - General Family Medicine 06/24/23 documented as of this encounter
--- OUTSIDE RECORDS SUMMARY | 2025-01-03 15:53 | XMS_ITS | Encounter Summary ---
Author Organization [facility] Address [address] [place] [address] Care Team Providers Care Ticket Maker Name Role Phone Cuco Munoz MD Primary Care Provider [phone] Encounter Details Date Type Department Care Team (Late st Contact Info) Description 10/02/2024 Orders Only [facility] OB [address] [facility] [place] [address] Priscila Landry MA Social History Tobacco Use Types Packs/Day Years [...] 1:40 PM EDT Routine [facility] BCP OB [address] [place] [address] Eric Holly, [facility] [address], [place] [address] documented as of this encounter Procedures Procedure Name Priority Date/Time Associated Diagnosis Comments PAP SMEAR Routine 09/18/2024 12:00 AM EST documented in this encounter Results * Pap Smear (09/18/2024 12:00 AM EST) Swab Cervical swab / Unknown Loraine OLIVO LAB CYTOLOGY ORDERABLES Final Re sult EXTERNAL LAB documented in this encounter Visit Diagnoses Not on filedocumented in this encounter Care Teams Ticket Maker Relationship Specialty Start Date End Date Cuco Munoz MD [address] [place] [address] PCP - General Family Medicine 06/24/23 documented as of this encounter
--- OUTSIDE RECORDS SUMMARY | 2025-01-03 15:53 | XMS_ITS | Encounter Summary ---
Author Organization [facility] Address [address] [place] [address] Care Team Providers Care Electrotype Finisher Name Role Phone Cuco Munoz MD Primary Care Provider [phone] Encounter Details Date Type Department Care Team (Late st Contact Info) Description 07/21/2024 Clinisync Result Encounter [facility] External Department Unsolicited Kermit Holly, DO [address], [facility]11 Social History Tobacco Use Types Packs/Day Years [...] Description 01/09/2025 1:40 PM EDT Routine [facility] OB [address] [place] [phone] Kermit Holly DO [address] [place] [address] [place] [address] documented as of this encounter Procedures Procedure Name Priority Date/Time Associated Diagnosis Comments US OB TRANSVAGINAL 07/21/2024 4: 17 PM EST documented in this encounter Results * US OB TRANSVAGINAL (07/21/2024 4:17 PM EST) Anatomical Region Laterality Modality Other 07/21/2024 4:17 PM EST Narrative 07/21/2024 4:20 [place] [address] Ultrasound Report Signed Patient: LYNNETTE NELSON MR#: [id number] : 1990 Acct:[id number] Age/Sex: 33 / F ADM Date: 07/21/24 Loc: NOMS Attending Dr: Kermit Holly D.O. Ordering Physician: Kermit Holly D.O. Date of Service: 07/21/24 Procedure(s): US OB transvaginal Accession Number(s): [id number] cc: Kermit Holly D.O.; Physician,Non-Staff M.DMicah The [address] [address] Patient Name: LYNNETTE NELSON MRN: [id number] date: 1990 Sex: F Assigned Patient Location: [facility] Current Patient Location: [facility] Accession/Order Number: [id number] Exam Date: 07/21/2024 10:15 Report Date: 07/21/2024 16:17 At the request of: KERMIT HOLLY Procedure: US OB transvaginal EXAMINATION: US OB transvaginal HISTORY: MISSED MENSES COMPARISON: No relevant comparison available. FINDINGS: GESTATIONAL SAC: Present and normal appearing. YOLK SAC: Present and normal appearing. POLE: Present and normal appearing. CARDIAC: Present. UTERUS: Normal size and appearance. OVARIES: Right: Normal. Left: Normal. CERVIX: 4.2 cm in length and closed. CUL-DE-SAC: Normal. OTHER: None. AGE BY LMP: 9 weeks 5 days INGRIS BY LMP: 02/18/2025 AGE BY US CRL: 10 weeks 0 days INGRIS BY US CRL: 02/16/2025 US/US OB transvaginal IMPRESSION: 1. Single live intrauterine . Electronically authenticated by: LEON SIMPSON Date: 07/21/2024 16:17 Dictated By: Leon Simpson M.D. Signed By: 07/21/24 1620 DD/ 1617 TD/TT: Shingles Roofer: Procedure Note Radiology, Radiologist, MD - 07/21/2024 [place] [address] Ultrasound Report Signed Patient: LYNNETTE NELSON RMR#: [id number] : 1990Acct:[id number] Age/Sex: 33 / FADM Date: 07/21/24 Loc: NOMS Attending Dr: Kermit Holly D.O. Ordering Physician: Kermit Holly D.O. Date of Service: 07/21/24 Procedure(s): US OB transvaginal Accession Number(s): [id number] cc: Kermit Holly D.O.; Physician,Non-Staff [place] The [place] [id number] Patient Name: LYNNETTE NELSON MRN: [id number] date: 1990 Sex: F Assigned Patient Location: [facility] Current Patient Location: [facility] Accession/Order Number: [id number] Exam Date: 07/21/2024 10:15 Report Date: 07/21/2024 16:17 At the request of: KERMIT HOLLY Procedure: US OB transvaginal EXAMINATION: US OB transvaginal HISTORY: MISSED MENSES COMPARISON: No relevant comparison available. FINDINGS: GESTATIONAL SAC: Present and normal appearing. YOLK SAC: Present and normal appearing. POLE: Present and normal appearing. CARDIAC: Present. UTERUS: Normal size and appearance. OVARIES: Right: Normal. Left: Normal. CERVIX: 4.2 cm in length and closed. CUL-DE-SAC: Normal. OTHER: None. AGE BY LMP: 9 weeks 5 days INGRIS BY LMP: 02/18/2025 AGE BY US CRL: 10 weeks 0 days INGRIS BY US CRL: 02/16/2025 US/US OB transvaginal IMPRESSION: 1. Single live intrauterine . Electronically authenticated by: LEON SIMPSON Date: 07/21/2024 16:17 Dictated By: Leon Simpson M.D. Signed By:07/21/24 162 DD/ 16 TD/TT: Shingles Roofer: us Kermit Elayne DO [facility] Final Result documented in this encounter Visit Diagnoses Not on filedocumented in this encounter Care Teams Electrotype Finisher Relationship Specialty Start Date End Date Cuco Munoz MD [address] [place] [address] PCP - General Family Medicine 06/24/23 documented as of this encounter
--- OUTSIDE RECORDS SUMMARY | 2025-01-03 15:53 | XMS_ITS | Encounter Summary ---
Author Organization [facility] Address [address] [place] [address] Care Team Providers Care Armed Security Guard Name Role Phone Cuco Munoz MD Primary Care Provider [phone] Encounter Details Date Type Department Care Team (Latest Contact Info) Description 12/22/2024 Travel Social History Tobacco Use Types Packs/Day Years [...] BCP OB [address] [place] [address] Eric Holly, DO [address] [place] [id number] documented as of this encounter Visit Diagnoses Not on filedocumented in this encounter Care Teams Armed Security Guard Relationship Specialty Start Date End Date Cuco Munoz MD [address] [place] [address] PCP - General Family Medicine 06/24/23 documented as of this encounter
--- OUTSIDE RECORDS SUMMARY | 2025-01-03 15:53 | XMS_ITS | Encounter Summary ---
Author Organization [facility] Address [address] [place] [address] Care Team Providers Care Garment Alteration Examiner Name Role Phone Cuco Munoz MD Primary Care Provider [phone] Encounter Details Date Type Department Care Team (Late st Contact Info) Description 01/01/2025 Telephone [facility] BCP OB [address] [place] [address] Priscila Landry MA Social History Tobacco Use [...] encounter Miscellaneous Notes * Telephone Encounter - Priscila Landry MA - 01/01/2025 3:07 PM EDT Pt states she needed order for lancets sent to pharmacy for her glucose monitor. Rx sent to pharm documented in this encounter Plan of Treatment Upcoming Encounters Date Type Department Care Team (Late st Contact Info) Description 01/09/2025 1:40 PM EDT Routine [facility] BCP OB [address] [place] [address] Eric Holly, [address] [facility] [place] [address] documented as of this encounter Visit Diagnoses Diagnosis Gestational diabetes mellitus (GDM), antepartum, gestational diabetes method of control unspecified Elevated glucose tolerance test Impaired glucose tolerance test documented in this encounter Care Teams Garment Alteration Examiner Relationship Specialty Start Date End Date Cuco Munoz MD [address] [place] [address] PCP - General Family Medicine 06/24/23 documented as of this encounter
--- OUTSIDE RECORDS SUMMARY | 2025-01-03 15:53 | XMS_ITS | Encounter Summary ---
Author Organization [facility] Address [address] [place] [address] Care Team Providers Care Chain Maker Name Role Phone Cuco Munoz MD Primary Care Provider [phone] Encounter Details Date Type Department Care Team (Late st Contact Info) Description 12/27/2024 Clinisync Result Encounter [facility] External Department Unsolicited Kermit Holly, DO [address], [facility]11 Social History Tobacco Use Types Packs/Day Years [...] Description 01/09/2025 1:40 PM EDT Routine [facility] OB [address] [place] [phone] Kermit Holly DO [address] [place] [address] [place] [address] documented as of this encounter Procedures Procedure Name Priority Date/Time Associated Diagnosis Comments US OB BPP W NON-STRESS 12/27/2024 7:37 PM EDT documented in this encounter Results * US OB BPP W NON-STRESS (12/27/2024 7:37 PM EDT) Anatomical Region Laterality Modality Other 12/27/2024 7:37 PM EDT Narrative 12/27/2024 7:40 [place] [address] Ultrasound Report Signed Patient: LYNNETTE NELSON MR#: [id number] : 1990 Acct:[id number] Age/Sex: 34 / F ADM Date: 12/27/24 Loc: US Attending Dr: Kermit Holly D.O. Ordering Physician: Kermit Holly D.O. Date of Service: 12/27/24 Procedure(s): US OB BPP w non-stress Accession Number(s): [id number] cc: Kermit Holly D.O.; Physician,Non-Staff [place] [address] Patient Name: LYNNETTE NELSON MRN: [id number] date: 1990 Sex: F Assigned Patient Location: US Current Patient Location: Accession/Order Number: [id number] Exam Date: 12/27/2024 19:33 Report Date: 12/27/2024 [...] Chaudhari M.D. 12/27/2024 7:37 PM Dictation Location: [place] [address] Electronically authenticated by: [id number] Y Date: 12/27/2024 19:37 Dictated By: David Chaudhari D.O. Signed By: 12/27/241939 DD/ 36 TD/TT: Director Of Bands: Procedure Note Radiology, Radiologist, - 12/28/2024 [place] [address] Ultrasound Report Signed Patient: LYNNETTE NELSON RMR#: [id number] : 1990Acct:[id number] Age/Sex: 34 / FADM Date: 12/27/24 Loc: US Attending Dr: Kermit Holly D.O. Ordering Physician: Kermit Holly D.O. Date of Service: 12/27/24 Procedure(s): US OB BPP w non-stress Accession Number(s): [id number] cc: Kermit Holly D.O.; Physician,Non-Staff [place] [address] Patient Name: LYNNETTE NELSON MRN: [facility]:[id number] date: 1990 Sex: F Assigned Patient Location: US Current Patient Location: Accession/Order Number: [id number] Exam Date: 12/27/2024 19:33 Report Date: 12/27/2024 [...] Chaudhari M.D. 12/27/2024 7:37 PM [facility] Electron[facility] by: [id number] Y Date: 9:37 Dictated By: David Chaudhari D.O. Signed By:12/27/241939 DD/ 36 TD/TT: Director Of Bands: us Kermit Holly DO [facility] Final Result documented in this encounter Visit Diagnoses Not on filedocumented in this encounter Care Teams Chain Maker Relationship Specialty Start Date End Date Cuco Munoz MD [address] [place] [address] PCP - General Family Medicine 06/24/23 documented as of this encounter
[2025-01-03 15:57] VITALS: BP 122/71; PULSE 92
--- NOTE | 2025-01-03 16:10 | US_ITS ---
[place] [id number] Patient Name: ABRAM NELSON MRN: [id number] date: 1990 Sex: F Assigned Patient Location: [facility] Current Patient Location: Accession/Order Number: [id number] Exam Date: 01/03/2025 20:18 Report Date: 01/03/2025 20:19 At the request of: KERMIT MG DO Procedure: US OB BPP w non-stress Ultrasound biophysical profile HISTORY: Gestational diabetes Adequate breathing movement, gross body movement, tone and amniotic fluid volume for total score of 8 out of 8. The amniotic fluid index is 15.2cm within normal limits. The heart rate 135 bpm. US/US OB BPP w non-stress IMPRESSION: Adequate ultrasound biophysical profile Impression dictated by: David Chaudhari M.D. 01/03/2025 8:19 PM Dictation Location: [place] [address] Electronically authenticated by: [id number] Y Date: 01/03/2025 20:19
== END 2025-01-03 17:03 | disposition home or self-care (01) ==
LOC: US 15:50 → FBC 15:55
PROVIDERS: Visit Provider Obstetrics & Gynecology
DX: O24.419 Gestational diabetes mellitus in pregnancy, unspecified control (principal); Z3A.33 33 weeks gestation of pregnancy
CPT/HCPCS: 76818

== ENCOUNTER 2025-01-06 11:35 | Outpatient (OUT) | payer MEDICAID, SELFPAY ==
--- OUTSIDE RECORDS SUMMARY | 2025-01-06 11:38 | XMS_ITS | CCD ---
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 Clear [facility] Color, UA Yellow [facility] Glucose, UA Negative Negative - 1999(110) ++++ mg/dL [facility] Interpretation and review of laboratory results Normal [facility] Ketones, UA Negative Negative - 160(16) ++++ mg/dL [facility] Leukocytes, UA Negative Negative - 500+++ Mike/mcL [facility] Nitrite, UA Negative Negative - Positive [facility] pH, UA 5.5 5 - 9 [facility] Protein, UA Negative Negative - 1999(20) ++++ mg/dL [facility] Spec Grav, UA 1.015 1 - 1.03 [facility] Urobilinogen, UA 0.2 0.2 - 12 mg/dL [facility] ALL CBC WITH AUTO DIFFon BASOPHILS ABSOLUTE AUTO 0.1 [facility] Basophils/100 WBC (Bld) 0.5 % 0.2 - 2.0 % [facility] Eosinophils/100 WBC (Bld) 1.6 % 0.9 - 7.0 % [facility] Erythrocyte distribution width (RBC) [Ratio] 14 % 11.0 - 15.0 % [facility] Hematocrit (Bld) [Volume fraction] 35.4 % Low 36.0 - 48.0 % [facility] Hemoglobin (Bld) [Mass/Vol] 12.2 g/dL 12.0 - 16.0 g/dL [facility] IMMATURE GRANULOCYTES ABS AUTO 0.05 High [facility] Immature granulocytes/100 WBC (Bld) 0.4 % 0.0 - 0.5 % [facility] Interpretation and review of laboratory results Abnormal [facility] LYMPHOCYTES ABSOLUTE AUTO 1.8 [facility] Lymphocytes/100 WBC (Bld) 14.4 % Low 20.5 - 60.0 % [facility] MCH (RBC) [Entitic mass] 31 pg 26.7 - 34.0 pg [facility] MCHC (RBC) [Mass/Vol] 34.5 g/dL 29.9 - 35.2 g/dL [facility] MCV (RBC) [Entitic vol] 90.1 fL 81.0 - 99.0 fL [facility] MONOCYTES ABSOLUTE AUTO 0.8 [facility] Monocytes/100 WBC (Bld) 5.9 % 1.7 - 12.0 % [facility] NEUTROPHILS ABSOLUTE AUTO 9.8 High [facility] Neutrophils/100 WBC (Bld) 77.2 % High 43.0 - 75.0 % [facility] Platelet mean volume (Bld) [Entitic vol] 10.3 fL 9.5 - 13.5 fL [facility] TBH EO # 0.2 [facility] TB PLT 338 [facility] RBC 3.93 Low [facility] WBC 12.7 High [facility] HCG ( test) Ql (U)o n 07-21-2024 Interpretation and review of laboratory results Abnormal [facility] Preg Test, Ur Positive Negative [facility] Urinalysis macro (dipstick) panel (U)on 07-21-2024 Bilirubin, UA Negative Negative - 4(70) +++ mg/dL [facility] Blood, UA Negative Negative - 50 Oscar/mcL [facility] Clarity, UA Clear [facility] Color, UA Yellow [facility] Glucose, UA Negative Negative - 1999(110) ++++ mg/dL [facility] Interpretation and review of laboratory results Normal [facility] Ketones, UA Negative Negative - 160(16) ++++ mg/dL [facility] Leukocytes, UA Negative Negative - 500+++ Mike/mcL [facility] Nitrite, UA Negative Negative - Positive [facility] pH, UA 6.5 5 - 9 [facility] Protein, UA Negative Negative - 1999(20) ++++ mg/dL [facility] Spec Grav, UA 1.015 1 - 1.03 [facility] Urobilinogen, UA 0.2 0.2 - 12 mg/dL [facility] No Panel InformationOrdered By: Mayte Joiner on 06-08-2024 Quick Strep (POC) [facility] No Panel InformationOrdered By: Ketty Jones on 04-21-2024 Quick Strep (POC) [facility] Quick Strep (POC) [facility] No Panel InformationOrdered By: Chaz Miller on 12-22-2023 Quick Strep (POC) [facility] US PELVISon 08-25-2022 US PELVIS EXAMINATION: [...] REMA OLIVAS Date: 2022-08-25 07:25 Normal [facility] CHLAMYDIA/GONOCOCCUS JESS (SW AB/URINE/PAPon 08-23-2022 Chlamydia trachomatis, JESS Negative Normal Negative [facility] Comment on above: Performed By: #### C BC #### [facility] [address] [place] [address] Dr. Babar Marks Neisseria gonorrhoeae, JESS Negative Normal Negative [facility] Comment on above: Performed By: #### C BC #### [facility] [address] [address] [address] Babar Marks VAGINITIS/VAGINOSIS DNA PROB Tam 08-21-2022 Kelsey species Negative Normal Negative [facility] Comment on above: Performed By: #### V AGINT #### [facility] [address] [address] [address] Babar Marks Gardnerella vaginalis Negative Normal Negative [facility] Comment on above: Performed By: #### V AGINT #### [facility] [address] [place] [address] Dr. Babar Marks Trichomonas vaginalis Negative Normal Negative [facility] Comment on above: Performed By: #### V AGINT #### [facility] [address] [place] [address] Dr. Babar Marks CBC AUTO DIFFon 07-30-2022 BASO # 0.1 103/ul Normal 0.0-0.1 [facility] Comment on above: Performed By: #### C BC #### [facility] [address] [place] [address] Dr. Babar Marks Basophils/100 WBC (Bld) 0.8 % Normal 0.2-2.0 [facility] Comment on above: Performed By: #### C BC #### [facility] [address] [place] [address] Dr. Babar Marks EO # 0.1 103/ul Normal 0.0-0.7 [facility] Comment on above: Performed By: #### C BC #### [facility] [address] [place] [address] Dr. Babar Marks Eosinophils/100 WBC (Bld) 1.4 % Normal 0.9-7.0 [facility] Comment on above: Performed By: #### C BC #### [facility] [address] [place] [address] Dr. Babar Marks Erythrocyte distribution width (RBC) [Ratio] 13.7 % Normal 11.0-15.0 [facility] Comment on above: Performed By: #### C BC #### [facility] [address] [place] [address] Dr. aBbar Marks Hematocrit (Bld) [Volume fraction] 36.9 % Normal 36.0-48.0 [facility] Comment on above: Performed By: #### C BC #### [facility] [address] [place] [address] Dr. Babar Marks Hemoglobin (Bld) [Mass/Vol] 12.4 g/dL Normal 12.0-16.0 [facility] Comment on above: Performed By: #### C BC #### [facility] [address] [address] [address] Babar Marks IG # 0.03 10e3/ul Normal 0.00-0.03 [facility] Comment on above: Performed By: #### C BC #### [facility] [address] [address] [address] Babar Marks IG % 0.3 % Normal 0.0-0.5 [facility] Comment on above: Performed By: #### C BC #### [facility] [address] [place] [address] Dr. Babar Marks LYMPH # 1.7 103/ul Normal 1.2-3.8 [facility] Comment on above: Performed By: #### C BC #### [facility] [address] [place] [address] Dr. Babar Marks Lymphocytes/100 WBC (Bld) 18.1 % Critically low 20.5-60.0 [facility] Comment on above: Performed By: #### C BC #### [facility] [address] [place] [address] Dr. Babar Marks MANUAL DIFF REQ NO Normal [facility] Comment on above: Performed By: #### C BC #### [facility] [address] [place] [address] Dr. Babar Marks MCH (RBC) [Entitic mass] 29.5 pg Normal 26.7-34.0 [facility] Comment on above: Performed By: #### C BC #### [facility] [address] [place] [address] Dr. Babar Marks MCHC (RBC) [Mass/Vol] 33.6 g/dL Normal 29.9-35.2 [facility] Comment on above: Performed By: #### C BC #### [facility] [address] [place] [address] Dr. Babar Marks MCV (RBC) [Entitic vol] 87.9 fL Normal 81.0-99.0 [facility] Comment on above: Performed By: #### C BC #### [facility] [address] [address] [address] Babar Marks MONO # 0.6 103/ul Normal 0.3-0.8 [facility] Comment on above: Performed By: #### C BC #### [facility] [address] [place] [address] Dr. Babar Marks Monocytes/100 WBC (Bld) 6.5 % Normal 1.7-12.0 [facility] Comment on above: Performed By: #### C BC #### [facility] [address] [place] [address] Dr. Babar Marks NEUT # 6.7 103/ul Critically high 1.4-6.5 [facility] Comment on above: Performed By: #### C BC #### [facility] [address] [place] [address] Dr. Babar Marks Neutrophils/100 WBC (Bld) 72.9 % Normal 43.0-75.0 [facility] Comment on above: Performed By: #### C BC #### [facility] [address] [place] [address] Dr. Babar Marks Platelet mean volume (Bld) [Entitic vol] 10.1 fL Normal 9.5-13.5 [facility] Comment on above: Performed By: #### C BC #### [facility] [address] [place] [address] Dr. Babar Marks PLT 393 103/ul Normal 150-450 [facility] Comment on above: Performed By: #### C BC #### [facility] [address] [place] [address] Dr. Babar Marks RBC 4.20 106/ul Normal 4.20-5.40 [facility] Comment on above: Performed By: #### C BC #### [facility] [address] [place] [address] Dr. Babar Marks WBC 9.2 103/ul Normal 4.0-11.0 [facility] Comment on above: Performed By: #### C BC #### [facility] [address] [place] [address] Dr. Babar Marks ER URINE PROFILEon 3 Bilirubin Ql (U) Negative Normal NEGATIVE [facility] Comment on above: Performed By: #### E RUR #### [facility] [address] [place] [address] Dr. Babar Marks Clarity (U) CLEAR Normal CLEAR [facility] Comment on above: Performed By: #### E RUR #### [facility] [address] [place] [address] Dr. Babar Marks Color (U) LT. YELLOW Normal YELLOW [facility] Comment on above: Performed By: #### E RUR #### [facility] [address] [place] [address] Dr. Babar Marks ERUAHD A micrscopic examina tion will be performed if indicated. Normal [facility] Comment on above: Performed By: #### E RUR #### [facility] [address] [place] [address] Dr. Babar Marks Glucose Ql (U) Negative Normal NEGATIVE [facility] Comment on above: Performed By: #### E RUR #### [facility] [address] [place] [address] Dr. Babar Marks Hemoglobin Ql (U) Negative Normal NEGATIVE [facility] Comment on above: Performed By: #### E RUR #### [facility] [address] [place] [address] Dr. Babar Marks Ketones Ql (U) Negative Normal NEGATIVE [facility] Comment on above: Performed By: #### E RUR #### [facility] [address] [place] [address] Dr. Babar Marks LEUKOCYTES Negative Normal NEGATIVE [facility] Comment on above: Performed By: #### E RUR #### [facility] [address] [place] [address] Dr. Babar Marks Nitrite Ql (U) Negative Normal NEGATIVE [facility] Comment on above: Performed By: #### E RUR #### [facility] [address] [place] [address] Dr. Babar Marks pH (U) 6.5 [pH] Normal 5-9 [facility] Comment on above: Performed By: #### E RUR #### [facility] [address] [place] [address] Dr. Babar Marks SPEC GRAVITY 1.015 Normal 1.005-<=1.0 25 [facility] Comment on above: Performed By: #### E RUR #### [facility] [address] [place] [address] Dr. Babar Marks UA PROTEIN Negative Normal NEGATIVE/ TRACE [facility] Comment on above: Performed By: #### E RUR #### [facility] [address] [place] [address] Dr. Babar Marks UR MICRO IND NOT INDICATED Normal [facility] Comment on above: Performed By: #### E RUR #### [facility] [address] [place] [address] Dr. Babar Marks Urobilinogen Qn (U) 0.2 {Courtney'U}/dL Normal 0.2 - 1. 0 [facility] Comment on above: Performed By: #### E RUR #### [facility] [address] [place] [address] Dr. Babar Marks LIPASEon 07-30-2022 Lipase [Catalytic activity/Vol] 141.0 U/L Normal 73.0-393.0 [facility] Comment on above: Performed By: #### L IPA, CMP #### [facility] [address] [place] [address] Dr. Babar Marks PREG HCG QUALon 07-30-2022 , QUAL Negative Normal NEGATIVE [facility] Comment on above: Performed By: #### C BC #### [facility] [address] [place] [address] Dr. Babar Marks PROF 14(COMP METB)on 023 Albumin [Mass/Vol] 3.3 g/dL Critically low 3.4-5.[address] [facility] Comment on above: Performed By: #### C BC #### [facility] [address] [place] [address] Dr. Babar Marks Albumin/Globulin [Mass ratio] 0.8 {ratio} Normal [facility] Comment on above: Performed By: #### C BC #### [facility] [address] [address] [address] Babar Marks ALP [Catalytic activity/Vol] 44 U/L Critically low 46-116 [facility] Comment on above: Performed By: #### C BC #### [facility] [address] [address] [address] Babar Marks ALT [Catalytic activity/Vol] 17 U/L Normal 14-59 [facility] Comment on above: Performed By: #### C BC #### [facility] [address] [address] [address] Babar Marks Anion gap [Moles/Vol] 11.0 mmol/L Normal [facility] Comment on above: Performed By: #### C BC #### [facility] [address] [place] [address] Dr. Babar Marks AST [Catalytic activity/Vol] 13 U/L Critically low 15-37 [facility] Comment on above: Performed By: #### C BC #### [facility] [address] [address] [address] Babar Marks Bilirubin [Mass/Vol] 0.3 mg/dL Normal 0.2-1.0 [facility] Comment on above: Performed By: #### C BC #### [facility] [address] [place] [address] Dr. Babar Marks Calcium [Mass/Vol] 8.6 mg/dL Normal 8.5-10.1 [facility] Comment on above: Performed By: #### C BC #### [facility] [address] [address] [address] Babar Marks Chloride [Moles/Vol] 107 mmol/L Normal 98-107 [facility] Comment on above: Performed By: #### C BC #### [facility] [address] [address] [address] Babar Marks CO2 [Moles/Vol] 29.5 mmol/L Normal 21.0-32.0 [facility] Comment on above: Performed By: #### C BC #### [facility] [address] [address] [address] Babar Marks Creatinine [Mass/Vol] 0.71 mg/dL Normal 0.55-1.02 [facility] Comment on above: Performed By: #### C BC #### [facility] [address] [address] [address] Babar Marks EGFR-AF IRISH >60 Normal >=60 [facility] Comment on above: Performed By: #### C BC #### [facility] [address] [place] [address] Dr. Babar Marks EGFR-NON AF IRISH >60 Normal >=60 [facility] Comment on above: Performed By: #### C BC #### [facility] [address] [place] [address] Dr. Babar Marks Globulin (S) [Mass/Vol] 4.0 g/dL Normal [facility] Comment on above: Performed By: #### C BC #### [facility] [address] [place] [address] Dr. Babar Marks Glucose [Mass/Vol] 81 mg/dL Normal 74-106 [facility] Comment on above: Performed By: #### C BC #### [facility] [address] [place] [address] Dr. Babar Marks Potassium [Moles/Vol] 3.5 mmol/L Normal 3.5-5.1 [facility] Comment on above: Performed By: #### C BC #### [facility] [address] [place] [address] Dr. Babar Marks Protein [Mass/Vol] 7.3 g/dL Normal 6.4-8.2 [facility] Comment on above: Performed By: #### C BC #### [facility] [address] [place] [address] Dr. Babar Marks Sodium [Moles/Vol] 144 mmol/L Normal 136-145 [facility] Comment on above: Performed By: #### C BC #### [facility] [address] [place] [address] Dr. Babar Marks Urea nitrogen [Mass/Vol] 14.0 mg/dL Normal 7.0-18.0 [facility] Comment on above: Performed By: #### C BC #### [facility] [address] [address] [address] Babar Marks Urea nitrogen/Creatinine [Mass ratio] 19.7 mg/mg Normal [facility] Comment on above: Performed By: #### C BC #### [facility] [address] [address] [address] Babar Marks XR ABD FLAT UP_PA [...] by: YESENIA ARRIOLA Date: 2022-07-30 18:11 Normal [facility] PAP ACOG PANEL 2: 30 to 65on 03-18-2022 . . Normal [facility] Comment on above: Result Comment: Perf ormed at: WB Performed By: #### [id number] #### [facility] [address] [address] [address] Babar Marks Age Gdln ACOG Testing 30-65 Normal [facility] Comment on above: Performed By: #### [id number] #### [facility] [address] [address] [address] Babar Marks DIAGNOSIS: Comment Normal [facility] Comment on above: Result Comment: NEGA TIVE FOR INTRAEPITHELIAL LESION OR MALIGNANCY. Performed at: WB Performed By: #### [id number] #### [facility] [address] [place] [address] Dr. Babar Marks HPV Aptima Positive Abnormal Negative [facility] Comment on above: Result Comment: This nucleic acid amplification test detects fourteen high-risk HPV types (16,18,31,33,35,39,45,51,52,56,58,59,66,68) without differentiation. Performed at: =G Performed By: #### [id number] #### [facility] [address] [place] [address] Dr. Babar Marks HPV Genotype 16 Negative Normal Negative [facility] Comment on above: Result Comment: Perf ormed at: =G Performed By: #### [id number] #### [facility] [address] [place] [address] Dr. Babar Marks HPV Genotype 18,45 Negative Normal Negative [facility] Comment on above: Result Comment: Perf ormed at: =G Performed By: #### [id number] #### [facility] [address] [place] [address] Dr. Babar Marks Methodology: Comment Normal [facility] Comment on above: Result Comment: This liquid based ThinPrep(R) pap test was screened with the use of an image guided system. Performed at: WB Performed By: #### [id number] #### [facility] [address] [place] [address] Dr. Babar Marks Note: Comment Normal [facility] Comment on above: Result Comment: The Pap smear is a screening test designed to aid in the detection of premalignant and malignant conditions of the uterine cervix. It is not a diagnostic procedure and should not be used as the sole means of detecting cervical cancer. Both false-positive and false-negative reports do occur. . Performed at: WB Performed By: #### [id number] #### [facility] [address] [place] [address] Dr. Babar Marks Performed by: Comment Normal [facility] Comment on above: Result Comment: Marry Billy Cook Dessert (ASCP) Performed at: WB Performed By: #### [id number] #### [facility] [address] [place] [address] Dr. Babra Marks Specimen adequacy: Comment Normal [facility] Comment on above: Result Comment: Sati sfactory for evaluation. Endocervical and/or squamous metaplastic cells (endocervical component) are present. Performed at: WB Performed By: #### [id number] #### [facility] [address] [place] [address] Dr. Babar Marks CHLAMYDIA/GONOCOCCUS JESS (SW AB/URINE/PAPon 03-14-2022 Chlamydia trachomatis, JESS Negative Normal Negative [facility] Comment on above: Performed By: #### C T/NGNA #### [facility] [address] [place] [address] Dr. Babar Marks Neisseria gonorrhoeae, JESS Negative Normal Negative [facility] Comment on above: Performed By: #### C T/NGNA #### [facility] [address] [place] [address] Dr. Babar Marks VAGINITIS/VAGINOSIS DNA PROB Tam 03-14-2022 Kelsey species Negative Normal Negative [facility] Comment on above: Performed By: #### V AGINT #### [facility] [address] [place] [address] Dr. Babar Marks Gardnerella vaginalis Negative Normal Negative [facility] Comment on above: Performed By: #### V AGINT #### [facility] [address] [place] [address] Dr. Babar Marks Trichomonas vaginalis Negative Normal Negative [facility] Comment on above: Performed By: #### V AGINT #### [facility] [address] [place] [address] Dr. Babar Marks XR CHEST 2 Von 11-23-2021 XR CHEST 2 V EXAM: XR CHEST 2 V COMPARISON: 02/06/2017 CLINICAL INDICATION: Cough. FINDINGS: The cardiomediastinal silhouette is within normal limits. No focal consolidation. No pleural effusion. No pneumothorax. IMPRESSION: No radiographic evidence of acute cardiopulmonary abnormality. Electronically authenticated by: DANIELA ZENG Date: 2021-11-23 17:05 Normal [facility] Discharge Summaryon 02-08-20 17 HIM IP Note OR Engineer First Assistant Normal [facility] Drug Scr, Abuse, Uron 2016 Amphetamine(s),Ur Negative Normal NEG [facility] Comment on above: Result Comment: (Pos itive cutoff 1000 ng/mL) Performed By: #### U AMIC, MARLEEN ####[facility] [address] [place] [address] Barbiturate(s),Ur Negative Normal NEG [facility] Comment on above: Result Comment: (Pos itive cutoff 200 ng/mL) Performed By: #### U AMIC, MARLEEN ####[facility] [address] [place] [address] Base excess Negative Normal NEG [facility] Comment on above: Result Comment: (Pos itive cutoff 300 ng/mL) Performed By: #### U AMIC, MARLEEN ####[facility] [address] [place] [address] Benzodiazepine(s) Negative Normal NEG [facility] Comment on above: Result Comment: (Pos itive cutoff 200 ng/mL) Performed By: #### U AMIC, MARLEEN ####[facility] [place] [address] Cannabinoid(s),Ur Negative Normal NEG [facility] Comment on above: Result Comment: (Pos itive cutoff 50 ng/mL) Performed By: #### U AMIC, MARLEEN ####[facility]lnq[facility]f[address] [place] [address] Interpretive Info Assay provides medic al screening only. The absence of expected drug(s) and/or Normal [facility] Comment on above: Result Comment: meta bolite(s) may indicate diluted or adulterated urine, limitations of testing or timing of collection.Testing for legal purposes should be confirmed by another method. To request confirmation of test result, please call the lab within 7 days of sample submission.[address] [address] Performed By: #### U AMIC, MARLEEN ####[address] [address] Opiate(s), Ur Positive Abnormal NEG [facility] Comment on above: Result Comment: (Pos itive cutoff 300 ng/mL) Performed By: #### U AMIC, MARLEEN ####[address] [address] Oxycodone, Urine Negative Normal NEG [facility] Comment on above: Result Comment: (Pos itive cutoff 100 ng/mL) Performed By: #### U AMIC, MARLEEN ####[address] [address] Phencyclidine, Ur Negative Normal NEG [facility] Comment on above: Result Comment: (Pos itive cutoff 25 ng/mL) Performed By: #### U AMIC, MARLEEN ####[address] [address] Urine, methadone presence Negative Normal NEG [facility] Comment on above: Result Comment: (Pos itive cutoff 300 ng/mL) Performed By: #### U AMIC, MARLEEN ####[address] [address] Buprenorphrine, Ur NOT REPORTED Normal NEG [facility] Comment on above: Performed By: #### U AMIC, MARLEEN ####[address] [address] MDMA, Urine NOT REPORTED Normal NEG [facility] Comment on above: Performed By: #### U AMIC, MARLEEN ####[address] [address] Methamphetamine, Ur NOT REPORTED Normal NEG [facility] Comment on above: Performed By: #### U AMIC, MARLEEN ####[address] [address] Propoxyphene,Urine NOT REPORTED Normal NEG [facility] Comment on above: Performed By: #### U AMIC, MARLEEN ####[address] [address] Urine, tricyclic antidepressants NOT REPORTED Normal NEG [facility] Comment on above: Performed By: #### U AMIC, MARLEEN ####[address] [address] ED Noteon 02-07-2017 HIM IP Note OR Engineer First Assistant Normal [facility] HIM IP Note OR Engineer First Assistant Normal [facility] ED Provider Noteon 7 HIM IP Note OR Engineer First Assistant Normal [facility] Ethanol Alcoholon 02-07-2017 Ethanol mg/dL Normal <10 [facility] Comment on above: Performed By: #### A LCB ####[address] [address] Ethanol percent <0.010 Normal [facility] Comment on above: Result Comment: [address] [address] Performed By: #### A LCB ####[address] [address] History and Physicalon 02-07 HIM IP Note OR Engineer First Assistant Normal [facility] UA w reflex C&Son 02-07-2017 Reflex Culture? URINE CULTURE REFLEXED Normal [facility] Comment on above: Performed By: #### P T/INR, PTT ####[facility] [place] [address] Urine, crystals in sediment NONE SEEN Normal NONE SEEN [facility] Comment on above: Performed By: #### P T/INR, PTT ####[place] [place] [address] Urine, bacteria in sediment Negative Normal [facility] Comment on above: Performed By: #### P T/INR, PTT ####[address] [place] [address] Urine, mucus presence in sediment Negative Normal NEGATIVE [facility] Comment on above: Performed By: #### P T/INR, PTT ####[address] [place] [address] Urine, casts in sediment NONE SEEN Normal NONE SEEN [facility] Comment on above: Performed By: #### P T/INR, PTT ####[address] [place] [address] Urine, epithelial cells in sediment Negative Normal NEGATIVE [facility] Comment on above: Performed By: #### P T/INR, PTT ####[address] [place] [address] Erythrocytes (RBC) 0-4/HPF Normal NONE SEEN [facility] Comment on above: Performed By: #### P T/INR, PTT ####[address] [place] [address] WBC (Leukocytes) NONE SEEN Normal NONE SEEN [facility] Comment on above: Performed By: #### P T/INR, PTT ####[address] [place] [address] Urine, leukocyte esterase presence Negative Normal NEGATIVE [facility] Comment on above: Performed By: #### P T/INR, PTT ####[address] [place] [address] Urine, nitrite presence Negative Normal NEGATIVE [facility] Comment on above: Performed By: #### P T/INR, PTT ####[address] [place] [address] Urobilinogen, Dipstick 0.2 Normal 0.2 - 1.0 [facility] Comment on above: Performed By: #### P T/INR, PTT ####[address] [place] [address] Protein, Qual Negative Normal NEGATIVE [facility] Comment on above: Performed By: #### P T/INR, PTT ####[address] [place] [place] [address] Urine, pH 7.0 [pH] Normal 5.0 - 9.0 [facility] Comment on above: Performed By: #### P T/INR, PTT ####[address] [place] [address] Blood, Dipstick TRACE Abnormal NEGATIVE [facility] Comment on above: Performed By: #### P T/INR, PTT ####[address] [place] [address] Urine, specific gravity 1.015 Normal 1.005 - 1.030 [facility] Comment on above: Performed By: #### P T/INR, PTT ####[address] [place] [address] Ketone, Dipstick Negative Normal NEGATIVE [facility] Comment on above: Performed By: #### P T/INR, PTT ####[address] [place] [address] Bilirubin (direct) Negative Normal NEGATIVE [facility] Comment on above: Performed By: #### P T/INR, PTT ####[address] [place] [address] Glucose mass conc Negative Normal NEGATIVE [facility] Comment on above: Performed By: #### P T/INR, PTT ####[facility] [place] [address] Urine, character CLEAR Normal CLEAR [facility] Comment on above: Performed By: #### P T/INR, PTT ####[address] [place] [address] Urine, color YELLOW Normal [facility] Comment on above: Performed By: #### P T/INR, PTT ####[address] [place] [address] Urinalysis w/ Microon 2016 ----- Normal [facility] Comment on above: Performed By: #### U AMIC, MARLEEN ####[facility] [address] [place] [address] Acetaminophen mass conc Negative Normal NEG [facility] Comment on above: Performed By: #### U AMIC, MARLEEN ####[address] [address] Bilirubin (direct) Negative Normal NEG [facility] Comment on above: Performed By: #### U AMIC, MARLEEN ####[facility] [address] [place] [address] Hemoglobin mass conc (Bld) LARGE Abnormal NEG [facility] Comment on above: Performed By: #### U AMIC, MARLEEN ####[facility] [address] [place] [address] Nitrite,Ur Negative Normal NEG [facility] Comment on above: Performed By: #### U AMIC, MARLEEN ####[facility] [address] [place] [address] Turbidity CLEAR Normal CLEAR [facility] Comment on above: Performed By: #### U AMIC, MARLEEN ####[facility] [address] [place] [address] Urine WBC's 0 TO 2 Normal 0-5 [facility] Comment on above: Performed By: #### U AMIC, MARLEEN ####[address] [address] Urine, casts in sediment 0 TO 2 HYALINE Normal 0-8 [facility] Comment on above: Result Comment: Refe rence range defined for non-centrifuged specimen. Performed By: #### U AMIC, MARLEEN ####[address] [address] Urine, color YELLOW Normal YEL [facility] Comment on above: Performed By: #### U AMIC, MARLEEN ####[address] [address] Urine, epithelial cells in sediment 0 TO 2 Normal 0-5 [facility] Comment on above: Result Comment: [address] [place] [address] Performed By: #### U AMIC, MARLEEN ####[address] [address] Urine, erythrocytes 2 TO 5 Normal 0-4 [facility] Comment on above: Result Comment: Refe rence range defined for non-centrifuged specimen. Performed By: #### U AMIC, MARLEEN ####[facility] [address] [place] [address] Urine, glucose presence Negative Normal NEG [facility] Comment on above: Performed By: #### U AMIC, MARLEEN ####[facility] [address] [place] [address] Urine, leukocyte esterase presence Negative Normal NEG [facility] Comment on above: Performed By: #### U AMIC, MARLEEN ####[facility] [address] [place] [address] Urine, pH 6.0 [pH] Normal 5.0-8.0 [facility] Comment on above: Performed By: #### U AMIC, MARLEEN ####[facility] [address] [place] [address] Urine, protein presence Negative Normal NEG [facility] Comment on above: Performed By: #### U AMIC, MARLEEN ####[address] [place] [address] Urine, specific gravity 1.013 Normal 1.005-1.030 [facility] Comment on above: Performed By: #### U AMIC, MARLEEN ####[address] [address] Urobilinogen,Ur Normal Normal NORM [facility] Comment on above: Performed By: #### U AMIC, MARLEEN ####[address] [address] Epithelial, Renal NOT REPORTED Normal 0 [facility] Comment on above: Performed By: #### U AMIC, MARLEEN ####[address] [place] [address] Mucus Strands NOT REPORTED Normal NONE [facility] Comment on above: Performed By: #### U AMIC, MARLEEN ####[facility] [address] [place] [address] Other Observations NOT REPORTED Normal NREQ [facility] Comment on above: Performed By: #### U AMIC, MARLEEN ####[address] [place] [address] Trichomonas NOT REPORTED Normal NONE [facility] Comment on above: Performed By: #### U AMIC, MARLEEN ####[facility] [address] [place] [address] Urine, amorphous sediment presence in sediment NOT REPORTED Normal NONE [facility] Comment on above: Performed By: #### U AMIC, MARLEEN ####[facility] [address] [place] [address] Urine, bacteria in sediment NOT REPORTED Normal NONE [facility] Comment on above: Performed By: #### U AMIC, MARLEEN ####[facility] [address] [place] [address] Urine, crystals in sediment NOT REPORTED Normal NONE [facility] Comment on above: Performed By: #### U AMIC, MARLEEN ####[facility] [address] [place] [address] Urine, yeast presence in sediment NOT REPORTED Normal NONE [facility] Comment on above: Performed By: #### U AMIC, MARLEEN ####[facility] [address] [place] [address] XR CHEST PA OR AP (1 VIEW)on [...] injury.Report electronically signed by: Dr. Chilo Fernandez [facility] XR SHOULDER RTon 02-07-2017 XR SHOULDER [...] injury.Report electronically signed by: Dr. Chilo Brush [facility] APTTon 02-06-2017 aPTT 29.1 s Normal 23.0 - 37.0 [facility] Comment on above: Performed By: #### P T/INR, PTT ####[facility] [place] [address] Basic Metabolic Panelon 01-23 eGFR (non-black) 108.65 Normal [facility] Comment on above: Result Comment: eGFR Interpretation:Normal: Equal to or greater than 60 mL/min/1.73 meters squaredChronic Kidney Disease: Less than 60 mL/min/1.73 meters squaredKidney Failure: Less than 15 mL/min/1.73 meters squared Performed By: #### B MP, LIVER PROFILE ####[address] [place] [place] [address] eGFR (non-black) 114.39 Normal [facility] Comment on above: Result Comment: eGFR Interpretation:Normal: Equal to or greater than 60 mL/min/1.73 meters squaredChronic Kidney Disease: Less than 60 mL/min/1.73 meters squaredKidney Failure: Less than 15 mL/min/1.73 meters squared Performed By: #### B MP, LIVER PROFILE ####[address] [place] [address] eGFR (non-black) 108.1 Normal [facility] Comment on above: Result Comment: eGFR Interpretation:Normal: Equal to or greater than 60 mL/min/1.73 meters squaredChronic Kidney Disease: Less than 60 mL/min/1.73 meters squaredKidney Failure: Less than 15 mL/min/1.73 meters squared Performed By: #### B MP, LIVER PROFILE ####[address] [place] [address] eGFR (non-black) 81.88 Normal [facility] Comment on above: Result Comment: eGFR Interpretation:Normal: Equal to or greater than 60 mL/min/1.73 meters squaredChronic Kidney Disease: Less than 60 mL/min/1.73 meters squaredKidney Failure: Less than 15 mL/min/1.73 meters squared Performed By: #### B MP, LIVER PROFILE ####[address] [place] [place] [address] eGFR (non-black) 125.60 Normal [facility] Comment on above: Performed By: #### B MP, LIVER PROFILE ####[address] [place] [address] eGFR (non-black) 132.24 Normal [facility] Comment on above: Performed By: #### B MP, LIVER PROFILE ####[address] [place] [address] eGFR (non-black) 124.64 Normal [facility] Comment on above: Performed By: #### B MP, LIVER PROFILE ####[address] [place] [address] eGFR (non-black) 94.39 Normal [facility] Comment on above: Performed By: #### B MP, LIVER PROFILE ####[address] [place] [address] Age 26 year(s) Normal [facility] Comment on above: Performed By: #### B MP, LIVER PROFILE ####[address] [place] [address] Calcium 10.1 mg/dL Normal 8.4 - 10.2 [facility] Comment on above: Performed By: #### B MP, LIVER PROFILE ####[address] [place] [address] Chloride 103 mmol/L Normal 98 - 107 [facility] Comment on above: Performed By: #### B MP, LIVER PROFILE ####[address] [place] [address] CO2 25 mmol/L Normal 22 - 32 [facility] Comment on above: Performed By: #### B MP, LIVER PROFILE ####[address] [place] [address] Creatinine 0.96 mg/dL Normal 0.52 - 1.04 [facility] Comment on above: Performed By: #### B MP, LIVER PROFILE ####[address] [place] [address] Glucose mass conc 126 mg/dL High 65 - 100 [facility] Comment on above: Performed By: #### B MP, LIVER PROFILE ####[address] [place] [address] Potassium molar conc 3.9 mmol/L Normal 3.6 - 5.[address] [facility] Comment on above: Performed By: #### B MP, LIVER PROFILE ####[address] [place] [address] Sodium 139 mmol/L Normal 135 - 145 [facility] Comment on above: Performed By: #### B MP, LIVER PROFILE ####[address] [place] [address] Urea nitrogen 20 mg/dL High 7 - 17 [facility] Comment on above: Performed By: #### B MP, LIVER PROFILE ####[address] [place] [address] CBC W Auto Differentialon - Abs Neut # 9.0 10 X 3/mm High 1.8 - 7.7 [facility] Comment on above: Performed By: #### C BC Auto Diff ####[address] [place] [address] Basophils/100 WBC Auto (Bld) 1 % High 0 - 1 [facility] Comment on above: Performed By: #### C BC Auto Diff ####[address] [place] [address] Eosinophils 0.1 10 X 3/mm Normal 0.0 - 0.5 [facility] Comment on above: Performed By: #### C BC Auto Diff ####[address] [place] [address] Eosinophils/100 leukocytes 1 % Normal 0 - 5 [facility] Comment on above: Performed By: #### C BC Auto Diff ####[address] [place] [address] Erythrocyte distribution width Auto Ratio (RBC) 15.1 % High 11.5 - 14.5 [facility] Comment on above: Performed By: #### C BC Auto Diff ####[address] [place] [address] Erythrocytes (RBC) 4.28 10 X 6/mm Normal 4.20 - 5.40 [facility] Comment on above: Performed By: #### C BC Auto Diff ####[address] [place] [address] Hematocrit (HCT) 36.3 % Normal 36.0 - 47.0 [facility] Comment on above: Performed By: #### C BC Auto Diff ####[address] [place] [address] Hemoglobin mass conc (Bld) 12.4 g/dL Normal 12.0 - 16.0 [facility] Comment on above: Performed By: #### C BC Auto Diff ####[address] [place] [address] Lymphocytes 2.3 10 X 3/mm Normal 1.0 - 4.0 [facility] Comment on above: Performed By: #### C BC Auto Diff ####[address] [place] [address] Lymphocytes/100 leukocytes 19 % Low 20 - 40 [facility] Comment on above: Performed By: #### C BC Auto Diff ####[address] [place] [address] MCH 29.0 pg Normal 27.0 - 35.0 [facility] Comment on above: Performed By: #### C BC Auto Diff ####[address] [place] [address] MCHC mass conc (RBC) 34.2 g/dL Normal 32.0 - 36.0 [facility] Comment on above: Performed By: #### C BC Auto Diff ####[address] [place] [address] MCV 84.9 fL Normal 80.0 - 100.0 [facility] Comment on above: Performed By: #### C BC Auto Diff ####[address] [place] [address] Monocytes/100 leukocytes 6 % Normal 1 - 15 [facility] Comment on above: Performed By: #### C BC Auto Diff ####[address] [place] [address] Neutrophils/100 WBC Auto (Bld) 74 % High 50 - 70 [facility] Comment on above: Performed By: #### C BC Auto Diff ####[address] [place] [address] Platelet mean volume (PMV) 8.0 fL Normal 7.5 - 11.5 [facility] Comment on above: Performed By: #### C BC Auto Diff ####[address] [place] [address] Platelets 454 uLx10 High 150 - 450 [facility] Comment on above: Performed By: #### C BC Auto Diff ####[address] [place] [address] WBC (Leukocytes) 12.2 10 X 3/mm High 3.7 - 11.[address] [facility] Comment on above: Performed By: #### C BC Auto Diff ####[place] [address] [place] [address] CT BRAIN WOon 02-06-2017 Thyroid stimulating hormone [...] effectReport electronically signed by: Dr. Zaire Babcock [facility] CT CERVICAL SPINE WOon 02-06 [...] indicated.Report electronically signed by: Dr. Mahamed King [facility] CT SINUS/FACIAL WOon 017 CT [...] by: Dr. Hal Ayoub Normal [facility] Hepatic Function Panelon Alanine aminotransferase (ALT) 30 U/L Normal 7 - 52 [facility] Comment on above: Performed By: #### B MP, LIVER PROFILE ####[address] [address] Albumin 3.8 g/dL Normal 3.5 - 5.0 [facility] Comment on above: Performed By: #### B MP, LIVER PROFILE ####[place] [address] [place] [address] Alkaline phosphatase (ALP) 63 U/L Normal 38 - 126 [facility] Comment on above: Performed By: #### B MP, LIVER PROFILE ####[address] [address] Aspartate aminotransferase (AST) 22 U/L Normal 14 - 36 [facility] Comment on above: Performed By: #### B MP, LIVER PROFILE ####[place] [address] [place] [address] Bilirubin (direct) 0.0 mg/dL Normal 0.0 - 0.2 [facility] Comment on above: Performed By: #### B MP, LIVER PROFILE ####[place] [address] [place] [address] Bilirubin (total) 0.8 mg/dL Normal 0.2 - 1.3 [facility] Comment on above: Performed By: #### B MP, LIVER PROFILE ####[place] [address] [place] [address] Protein 6.9 g/dL Normal 6.3 - 8.2 [facility] Comment on above: Performed By: #### B MP, LIVER PROFILE ####[place] [address] [place] [address] PT/INRon 02-06-2017 INR Coag RelTime (Bld) See Comments Normal [facility] Comment on above: Result Comment: [...] 2.5-3.5 Performed By: #### P T/INR, PTT ####[place] [address] [place] [address] INR Coag RelTime (PPP) 0.94 Normal 0.90 - 1.10 [facility] Comment on above: Performed By: #### P T/INR, PTT ####[place] [address] [place] [address] Prothrombin time (PT) Coag time (PPP) 12.6 s Normal [facility] Comment on above: Performed By: #### P T/INR, PTT ####[place] [address] [place] [address] Troponin I, Extra Sensitiveo n 02-06-2017 Troponin I.cardiac mass conc ng/mL Normal 0.000 - 0.034 [facility] Comment on above: Result Comment: Limi t of Detection: <0.012 ng/mLAt Risk of Myocardial Damage: 0.012-0.034 ng/mLProbable Myocardial Damage: >0.034 ng/mL Performed By: #### T ROPONIN I ####[place] [address] [place], [place] [id number] hCG, Qualitative-Serumon Internal Control ACCEPTABLE Normal [facility] Comment on above: Performed By: #### H CG,QUAL SERUM ####[place] [id number] [place], [place] [id number] hCG, Qualitative-Serum Negative Normal NEGATIVE [facility] Comment on above: Performed By: #### H CG,QUAL SERUM ####[address] [place] [place], [place] [id number] Vital Signs Date Time Vital Sign Value Performing Clinician Facility 12-25-2024 14:28-0400 Body mass index (BMI) [Ratio] 33.91 kg/m2 Verient DO Work Phone: [facility] 12-25-2024 14:28-0400 Body weight 92.42 kg Eric Elayne DO Work Phone: [facility] 12-25-2024 14:28-0400 Diastolic blood pressure 80 mm[Hg] Eric Elayne DO Work Phone: [facility] 12-25-2024 14:28-0400 Systolic blood pressure 110 mm[Hg] Eric Elayne DO Work Phone: [facility] 12-13-2024 14:59-0400 Body mass index (BMI) [Ratio] 34.78 kg/m2 Eric Elayne DO Work Phone: [facility] 12-13-2024 14:59-0400 Body weight 94.8 kg Eric Elayne DO Work Phone: [facility] 12-13-2024 14:59-0400 Diastolic blood pressure 78 mm[Hg] Eric Elayne DO Work Phone: [facility] 12-13-2024 14:59-0400 Systolic blood pressure 120 mm[Hg] Eric Elayne DO Work Phone: [facility] 11-28-2024 14:25-0400 Body mass index (BMI) [Ratio] 34.61 kg/m2 Eric Elayne DO Work Phone: [facility] 11-28-2024 14:25-0400 Body weight 94.35 kg Eric Elayne DO Work Phone: [facility] 11-28-2024 14:25-0400 Diastolic blood pressure 76 mm[Hg] Eric Elayne DO Work Phone: [facility] 11-28-2024 14:25-0400 Systolic blood pressure 120 mm[Hg] Eric Elayne DO Work Phone: [facility] 11-07-2024 13:37-0400 Body mass index (BMI) [Ratio] 35.11 kg/m2 Eric Elayne DO Work Phone: [facility] 11-07-2024 13:37-0400 Body weight 95.71 kg Eric Elayne DO Work Phone: [facility] 11-07-2024 13:37-0400 Diastolic blood pressure 72 mm[Hg] Eric Elayne DO Work Phone: [facility] 11-07-2024 13:37-0400 Systolic blood pressure 122 mm[Hg] Eric Elayne DO Work Phone: [facility] 09-18-2024 13:47-0500 Body mass index (BMI) [Ratio] 31.92 kg/m2 Loraine OLIVO Work Phone: [facility] 09-18-2024 13:47-0500 Body weight 87 kg Loraine OLIVO Work Phone: [facility] 09-18-2024 13:47-0500 Diastolic blood pressure 76 mm[Hg] Loraine OLIVO Work Phone: [facility] 09-18-2024 13:47-0500 Systolic blood pressure 116 mm[Hg] Loraine OLIVO Work Phone: [facility] 09-08-2024 15:52-0500 Body height 165.1 cm [facility] 09-08-2024 15:52-0500 Body mass index (BMI) [Ratio] 58.6 kg/m2 [facility] 09-08-2024 15:52-0500 Body temperature 98.9 [degF] [facility] 09-08-2024 15:52-0500 Body weight 160 kg [facility] 09-08-2024 15:52-0500 Diastolic blood pressure 78 mm[Hg] [facility] 09-08-2024 15:52-0500 Heart rate 105 /min [facility] 09-08-2024 15:52-0500 Respiratory rate 18 /min [facility] 09-08-2024 15:52-0500 SaO2% (BldA) [Mass fraction] 97 % [facility] 09-08-2024 15:52-0500 Systolic blood pressure 120 mm[Hg] [facility] 08-21-2024 13:18-0500 Body mass index (BMI) [Ratio] 31.12 kg/m2 Eirc Elayne DO Work Phone: [facility] 08-21-2024 13:18-0500 Body weight 84.82 kg Eric Elayne DO Work Phone: [facility] 08-21-2024 13:18-0500 Diastolic blood pressure 70 mm[Hg] Eric Elayne DO Work Phone: [facility] 08-21-2024 13:18-0500 Systolic blood pressure 120 mm[Hg] Eric Elayne DO Work Phone: [facility] 07-21-2024 11:10-0500 Body mass index (BMI) [Ratio] 29.45 kg/m2 [facility] 07-21-2024 11:10-0500 Body weight 80.29 kg Nom Nurse [facility] 07-21-2024 11:10-0500 Diastolic blood pressure 76 mm[Hg] [facility] Nurse [facility] 07-21-2024 11:10-0500 Systolic blood pressure 124 mm[Hg] [facility] Nurse [facility] 06-08-2024 10:32-0500 Body height 165.1 cm [facility] 06-08-2024 10:32-0500 Body mass index (BMI) [Ratio] 29.1 kg/m2 [facility] 06-08-2024 10:32-0500 Body temperature 97.5 [degF] [facility] 06-08-2024 10:32-0500 Body weight 79.37 kg [facility] 06-08-2024 10:32-0500 Diastolic blood pressure 89 mm[Hg] [facility] 06-08-2024 10:32-0500 Heart rate 93 /min [facility] 06-08-2024 10:32-0500 Respiratory rate 18 /min [facility] 06-08-2024 10:32-0500 SaO2% (BldA) [Mass fraction] 98 % [facility] 06-08-2024 10:32-0500 Systolic blood pressure 130 mm[Hg] [facility] 04-21-2024 13:40-0400 Body height 165.1 cm [facility] 04-21-2024 13:40-0400 Body mass index (BMI) [Ratio] 28.1 kg/m2 [facility] 04-21-2024 13:40-0400 Body temperature 99.4 [degF] [facility] 04-21-2024 13:40-0400 Body weight 76.82 kg [facility] 04-21-2024 13:40-0400 Diastolic blood pressure 84 mm[Hg] [facility] 04-21-2024 13:40-0400 Heart rate 85 /min [facility] 04-21-2024 13:40-0400 Respiratory rate 18 /min [facility] 04-21-2024 13:40-0400 SaO2% (BldA) [Mass fraction] 99 % [facility] 04-21-2024 13:40-0400 Systolic blood pressure 126 mm[Hg] [facility] 12-22-2023 18:07-0400 Body height 165.1 cm [facility] 12-22-2023 18:07-0400 Body mass index (BMI) [Ratio] 27.8 kg/m2 [facility] 12-22-2023 18:07-0400 Body temperature 98.7 [degF] [facility] 12-22-2023 18:07-0400 Body weight 75.74 kg [facility] 12-22-2023 18:07-0400 Heart rate 84 /min [facility] 12-22-2023 18:07-0400 Respiratory rate 18 /min [facility] 12-22-2023 18:07-0400 SaO2% (BldA) [Mass fraction] 99 % [facility] Encounters Encounter Date Encounter Type Care Provider Facility Start: 01-03-2025 End: 01-03-2025 Clinisync Result Encounter Eric Elayne DO Work Phone: [facility] External Department Unsolicited Start: 01-03-2025 End: 01-03-2025 Clinisync Result Encounter Eric Elayne DO Work [...] 15 minutes Eric Elayne DO Work Phone: [facility] Comment on above: 30 weeks gestation o f ; Third trimester ; Gestational diabetes mellitus (GDM), antepartum, gestational diabetes method of control unspecified Start: 12-13-2024 End: 12-13-2024 ambulatory ERIC ELAYNE Not Available Start: 12-13-2024 End: 12-13-2024 Bamboo flowsheet Eric Elayne DO Work Phone: [facility] Start: 12-13-2024 End: 12-13-2024 Bamboo flowsheet Eric Elayne DO Work Phone: [facility] Start: 11-28-2024 End: 11-28-2024 Bamboo flowsheet Eric Elayne DO Work Phone: [facility] Start: 11-28-2024 End: 11-28-2024 Bamboo flowsheet Eric Elayne DO Work Phone: [facility] Start: 11-28-2024 End: 11-28-2024 ambulatory ERIC ELAYNE Not Available Start: 11-28-2024 End: 11-28-2024 Office outpatient visit 15 minutes Eric Elayne DO Work Phone: [facility] Comment on above: Third trimester preg chester; 28 weeks gestation of Start: 11-23-2024 End: 11-23-2024 Clinisync Result Encounter Eric Elayne DO Work Phone: [facility] External Department Unsolicited Start: 11-23-2024 End: 11-23-2024 Clinisync Result Encounter Eric Elayne DO Work Phone: [facility] External Department Unsolicited Start: 11-16-2024 End: 11-16-2024 [...] Patient encounter procedure Loraine OLIVO Work Phone: [facility] Work Phone: Start: 09-18-2024 End: 09-18-2024 Periodic preventive med est patient 18-39 yrs Loraine OLIVO Work Phone: [facility] Comment on above: Well woman exam with routine gynecological exam; Second trimester ; 18 weeks gestation of ; Vaginal discharge; STD exposure; Screening, , for anatomic survey; Sinusitis, unspecified chronicity, unspecified location Start: 09-18-2024 End: 09-18-2024 ambulatory LORAINE HILLMAN Not Available Start: 09-08-2024 End: 09-08-2024 ambulatory [facility] Work Phone: Start: 09-08-2024 End: 09-08-2024 Patient encounter procedure [facility] Loc Work Phone: Start: 09-06-2024 End: 09-08-2024 Clinisync Result Encounter Eric Elayne DO Work Phone: [facility] External Department Unsolicited Start: 09-06-2024 End: 09-08-2024 Clinisync Result Encounter Eric Elayne DO Work Phone: [facility] External Department Unsolicited Start: 08-21-2024 End: 08-21-2024 Bamboo flowsheet Eric Elayne DO Work Phone: [facility] Start: 08-21-2024 End: 08-21-2024 Bamboo flowsheet Eric Elayne DO Work Phone: [facility] Start: 08-21-2024 End: 08-21-2024 Office outpatient visit 15 minutes Eric Elayne DO Work Phone: [facility] Comment on above: 14 weeks gestation o f ; Second trimester ; Tinea pedis, unspecified laterality; History of pre-eclampsia; History of anemia Start: 08-21-2024 End: 08-21-2024 ambulatory ERIC HOLLY Not Available Start: 08-15-2024 End: 08-15-2024 Clinisync Result Encounter Eric Elayne DO Work Phone: [facility] External [facility] Unsolicited Start: 08-15-2024 End: 08-15-2024 Clinisync Result Encounter Eric Elayne DO Work Phone: [facility] External Department Unsolicited Start: 07-21-2024 End: 07-21-2024 ambulatory [facility] Nurse [facility] Comment on above: GA: 10w0d Start: 06-08-2024 End: 06-08-2024 ambulatory [facility] Work Phone: Start: 06-08-2024 End: 06-08-2024 Patient encounter procedure [facility] Loc Work Phone: Start: 04-21-2024 End: 04-21-2024 ambulatory [facility] Work Phone: Start: 04-21-2024 End: 04-21-2024 Patient encounter procedure [facility] Loc Work Phone: Start: 12-22-2023 End: 12-22-2023 ambulatory [facility] Work Phone: Start: 12-22-2023 End: 12-22-2023 Patient encounter procedure [facility] Loc Work Phone: Start: 12-01-2022 ambulatory Facility:[facility] [place] Start: 08-24-2022 End: 08-25-[address] MECHE LE Facility:[facility] Start: 08-19-2022 End: 08-19-[address] ERIC HOLLY Facility:[facility] Start: 07-30-2022 End: 07-30-2022 ambulatory LEANDRO VERDUZCO Facility:[facility] Start: 03-11-2022 End: 03-11-[address] ERIC HOLLY Facility:[facility] Start: 11-23-2021 End: 11-23-2021 ambulatory LEANDRO VERDUZCO Facility: Start: 02-07-2017 End: 02-07-2017 Ambulatory [facility] Start: 02-06-2017 End: 02-07-2017 Emergency department patient visit IBRAHIMA WARE Facility:[facility] Procedures Date Procedure Procedure Detail Performing Clinician Start: 01-03-2025 US OB BPP W NON-STRESS Eric Elayne DO Work Phone: Start: 12-27-2024 US OB BPP W NON-STRESS [...] Work Phone: Start: 11-16-2024 [facility] UA (CLEAN/CATCH) ANODIC TREATER/MICRO IF IND. Eric Elayne DO Work Phone: Start: 11-07-2024 Urnls dip stick/tabl et rgnt non-auto w/o micrscp Eric Elayne DO Work Phone: Start: 10-27-2024 US OB INCOMPLETE ANATOMY Eric Elayne DO Work Phone: Start: 09-18-2024 RECURRENT VAGINITIS (HTRX) Loraine OLIVO Work Phone: Start: 09-18-2024 Urnls dip stick/tabl et rgnt non-auto w/o micrscp Loraine OLIVO Work Phone: Start: 02-24-2025 IGP,APTIMA HPV,AGE GDLN Loraine Hillman PA Work Phone: Start: 09-18-2024 Microscopic observat ion [...] ALTA GOODRICH Start: 02-07-2017 NURSING COMMUNICATION P SHARLENE GOODRICH Start: 02-07-2017 DISCHARGE PATIENT ALTA ESTRADA [...] Influenza vaccination Influenz a Vaccine (Season Ended) [facility] Start: 01-09-2025 End: 01-09-2025 Patient encounter procedure 01/09/2025 1:40 PM EDT Routine [facility] [address] [place] [phone] Eric Holly, DO [address] [place] [address] [facility] Start: 12-25-2024 End: 12-25-2024 Patient encounter procedure 12/25/2024 2:00 PM EDT Routine [facility] [address] [phone] Eric Holly, DO [address] [place] [address] [facility] Start: 12-13-2024 End: 12-13-2024 Patient encounter procedure [facility] Comment on above: Arrived Start: 12-13-2024 End: 06-15-2025 US biophysical profile w non stress test US biophysical profile w non stress test Imaging Routine Gestational diabetes mellitus (GDM), antepartum, gestational diabetes method of control unspecified Expected: 12/13/2024 (Approximate), Expires: 06/15/2025 [facility] Comment on above: Expected: 12/13/2024 (Approximate), Expires: 06/15/2025 Start: 12-13-2024 End: 04-15-2025 US for US OB follow up transabdominal approach Imaging Routine Gestational diabetes mellitus (GDM), antepartum, gestational diabetes method of control unspecified Expected: 12/13/2024, Expires: 04/15/2025 [facility] Work Phone: Comment on above: Expected: 12/13/2024 , Expires: 04/15/2025 Start: 11-28-2024 End: 11-28-2024 Patient encounter procedure 11/28/2024 1:50 PM EDT Routine [facility] [address] [place] [phone] Eric Holly, DO [address] [place] [address] [facility] Start: 11-07-2024 End: 11-07-2025 CBC panel - Blood by Automated count CBC Lab Routine Diabetes mellitus screening Expected: 11/07/2024 (Approximate), Expires: 11/07/2025 [facility] Work Phone: Comment on above: Expected: 11/07/2024 (Approximate), Expires: 11/07/2025 Start: 11-07-2024 End: 11-07-2025 Measurement of glucose 1 hour after glucose challenge for glucose tolerance test Glucose tolerance, 1 hour Lab Routine Diabetes mellitus screening Expected: 11/07/2024 (Approximate), Expires: 11/07/2025 [facility] Comment on above: Expected: 11/07/2024 (Approximate), Expires: 11/07/2025 Start: 11-07-2024 End: 11-07-2024 Patient encounter procedure 11/07/2024 1:20 PM EDT Routine [facility] [address] [place] [phone] Eric Holly, DO [address] [place] [address] [facility] Start: 10-16-2024 End: 10-16-2024 Patient encounter procedure 10/16/2024 2:20 PM EDT Routine [facility] [address] [place] [phone] Eric Holly, DO [address] [place] [address] [facility] Start: 09-18-2024 End: 03-18-2025 Alpha fetoprotein, maternal Alpha fetoprotein, maternal Lab Routine Second trimester 18 weeks gestation of Expected: 09/18/2024 (Approximate), Expires: 03/18/2025 [facility] Comment on above: Expected: 09/18/2024 (Approximate), Expires: 03/18/2025 Start: 09-18-2024 End: 09-18-2025 US for US OB 14+ weeks anatomy scan Imaging Routine Screening, , for anatomic survey Expected: 09/18/2024, Expires: 09/18/2025 [facility] Comment on above: Expected: 09/18/2024 , [...] gestational age Expected: 07/21/2024 (Approximate), Expires: 07/21/2025 [facility] Work Phone: Comment on above: Expected: 07/21/2024 (Approximate), Expires: 07/21/2025 Start: 07-21-2024 End: 07-21-2025 Drugs of abuse panel - Urine by Screen method Rapid drug screen, urine Lab Routine , unspecified gestational age Encounter for supervision of normal first in first trimester Expected: 07/21/2024 (Approximate), Expires: 07/21/2025 [facility] Comment on above: Expected: 07/21/2024 (Approximate), Expires: 07/21/2025 Start: 07-21-2024 End: 07-21-2025 US Pelvis transvaginal US OB transvaginal Imaging Routine Missed menses Expected: 07/21/2024 (Approximate), Expires: 07/21/2025 [facility] Comment on above: Expected: 07/21/2024 (Approximate), Expires: 07/21/2025 Bacteria identified in Urine by Culture Urine culture Microbiology Routine Missed menses Ordered: 07/21/2024 [facility] Comment on above: Ordered: 07/21/2024 CBC W Auto Different ial panel - Blood CBC and differential Lab Routine Missed menses , unspecified gestational age Ordered: 07/21/2024 [facility] Comment on above: Ordered: 07/21/2024 CHLAMYDIA TRACHOMATI S (GENITO/STI) CHLAMYDIA TRACHOMATIS (GENITO/STI) Lab Routine STD exposure Ordered: 09/18/2024 [facility] Comment on above: Ordered: 09/18/2024 Cytology Cervical or vaginal smear or scraping study Pap Smear Pathology and Cytology Routine Well woman exam with routine gynecological exam Ordered: 09/18/2024 [facility] Comment on above: Ordered: 09/18/2024 Hemoglobin A1c/Hemoglobin.total in Blood Hemoglobin A1c Lab Routine Missed menses , unspecified gestational age Ordered: 07/21/2024 [facility] Comment on above: Ordered: 07/21/2024 Hepatitis B virus surface Ag [Presence] in Serum or Plasma by Immunoassay Hepatitis B surface antigen Lab Routine Missed menses , unspecified gestational age Ordered: 07/21/2024 [facility] Comment on above: Ordered: 07/21/2024 Hepatitis C virus Ab [Presence] in Serum or Plasma by Immunoassay Hepatitis C antibody Lab Routine Missed menses , unspecified gestational age Ordered: 07/21/2024 [facility] Comment on above: Ordered: 07/21/2024 HIV-1/HIV-2 antigen/antibody combination immunoassay HIV-1 and HIV-2 antibodies Lab Routine Missed menses , unspecified gestational age Ordered: 07/21/2024 [facility] Comment on above: Ordered: 07/21/2024 Human papilloma viru s DNA [Presence] in Unspecified specimen by Probe with amplification HPV DNA probe, amplified Microbiology Routine Well woman exam with routine gynecological exam Ordered: 09/18/2024 [facility] Comment on above: Ordered: 09/18/2024 Neisseria gonorrhoea e DNA [Presence] in Unspecified specimen by JESS with probe detection Neisseria gonorrhea DNA probe, direct Lab Routine STD exposure Ordered: 09/18/2024 [facility] Comment on above: Ordered: 09/18/2024 Reagin Ab [Presence] in Serum by RPR RPR Lab Routine Missed menses , unspecified gestational age Ordered: 07/21/2024 [facility] Comment on above: Ordered: 07/21/2024 Rubella antibody, IgG Rubella an tibody, IgG Lab Routine Missed menses , unspecified gestational age Ordered: 07/21/2024 [facility] Comment on above: Ordered: 07/21/2024 SURESWAB(R) ADVANCED VAGINITIS PLUS, TMA SURESWAB(R) ADVANCED VAGINITIS PLUS, TMA Pathology and Cytology Routine Vaginal discharge Ordered: 09/18/2024 [facility] Work Phone: Comment on above: Ordered: 09/18/2024 Payers Date Payer Category Payer Medicaid [employer] [place] [id number] 2022 Medicaid [id number] 2019 Unknown [id number] 2017 Unknown 2014 Unknown [id number] 1990 Unknown [id number] 1990 Unknown [id number] [id number] 1990 Unknown [id number] [id number] 1990 Unknown [id number] [id number]3 1990 Unknown [id number] 2.16.840.1.075956.3.579.2.593 1990 Unknown [id number] 2.16.840.1.353181.3.579.2.727 1990 Unknown [id number] 2.16.840.1.668989.3.579.2.1259 1990 Unknown [id number] 2.16.840.1.527268.3.579.2.1259 1990 Unknown [id number] 2.16.840.1.184618.3.579.2.1259 1990 Unknown [id number] 2.16.840.1.058213.3.579.2.1259 1990 Unknown [id number] 2.16.840.1.544800.3.579.2.1259 1990 Unknown [id number] 2.16.840.1.095826.3.579.2.1259 1990 Unknown [id number] 2.16.840.1.609995.3.579.2.1259 1990 Unknown [id number] [id number] 1959 Unknown [id number] Unknown [facility] [id number] Social History Date Type Detail Facility Start: 03-31-2023 End: 08-11-2023 Tobacco smoking status NHIS Never smoked tobacco (finding) [facility] Start: 1990 Sex Assigned At Female F [facility] Start: 06-08-2024 End: 09-08-2024 Sex Female (finding) [facility] Start: 03-31-2023 Tobacco use and exposure [...] Gender identity Identifies as female gender (finding) [facility] Medical Equipment Procedure Code Equipment Code Equipment Origin al Text Equipment Identifier Dates 1 strip by In Vi tro route Daily Use in the morning prior to breakfast, 1 hour after each meal for a total of 4times daily. [id number] Start: 11-23-2024 End: 12-25-2024 1 each by In Vit ro route Daily Use to check FSBS four times daily [id number] Start: 11-23-2024 End: 12-23-2024 1 strip by In Vi tro route Daily Use in the morning prior to breakfast, 1 hour after each meal for a total of 4times daily. [id number] Start: 12-25-2024 End: 01-24-2025 1 each by In Vit ro route Daily Use to check FSBS four times daily [id number] Start: 01-01-2025 End: 01-31-2025 Clinical Notes 04-21-2024 to 12-25-2024 Tala Huizar, LAURA - 12/25/2024 2:00 PM Payton Kelly LPN - 12/13/2024 2:30 PM Payton Kelly LPN - 11/28/2024 1:50 PM Payton Kelly LPN - 11/07/2024 1:20 PM EDT Note Date [...] to check FSBS. Blood Glucose Monitoring Suppl ([employer] Glucometer) w/Device kit 1 kit, Does not apply, Daily, Use four times daily to check FSBS. In the morning prior to breakfast & 1 hour after each meal for a total of 4times daily. Multiple Vitamins-Minerals (MULTIVITAMIN ADULT, MINERALS, PO) Multivitamin Arzmlacs-Kpf-Pr-FA ( 1 + IRON PO) ALLERGIES Allergies [...] nursing note reviewed. Exam conducted with a metalworking specialist present. Vitals: Estimated body mass index is [...] Eric Holly DO documented in this encounter [facility] 12-13-2024 History of Presen t illness Narrative [...] to check FSBS. Blood Glucose Monitoring Suppl ([employer] Glucometer) w/Device kit 1 kit, Does not [...] Multiple Vitamins-Minerals (MULTIVITAMIN ADULT, MINERALS, PO) Multivitamin Xsgnqavr-Puo-Rt-FA ( 1 + IRON PO) ALLERGIES Allergies [...] nursing note reviewed. Exam conducted with a metalworking specialist present. Vitals: Estimated body mass index is [...] Eric Holly DO documented in this encounter [facility] 11-28-2024 History of Presen t illness Narrative [...] to check FSBS. Blood Glucose Monitoring Suppl ([employer] Glucometer) w/Device kit 1 kit, Does not [...] (ProtoNix) 20 MG EC tablet Pantoprazole Sodium Xckwxnzl-Vvd-Dm-FA ( 1 + IRON PO) ALLERGIES Allergies [...] nursing note reviewed. Exam conducted with a metalworking specialist present. Vitals: Estimated body mass index is [...] Eric Holly DO documented in this encounter [facility] 11-07-2024 History of Presen t illness Narrative Reason for Appointment: Patient ID: Abram Villarreal is a 33 y.o. female who presents for Routine Visit Patient presents today for Return OB appointment. MEDICATIONS Current Outpatient Medications Medication Instructions albuterol HFA 90 mcg/act inhaler Every 4 hours Multiple Vitamins-Minerals (MULTIVITAMIN ADULT, MINERALS, PO) Multivitamin pantoprazole (ProtoNix) 20 MG EC tablet Pantoprazole Sodium Fytbwfeb-Jax-Ae-FA ( 1 + IRON PO) valACYclovir (VALTREX) [...] nursing note reviewed. Exam conducted with a metalworking specialist present. Vitals: Estimated body mass index is [...] Eric Holly DO documented in this encounter [facility] 09-18-2024 History of Presen t illness Narrative [...] nursing note reviewed. Exam conducted with a metalworking specialist present. Vitals: Estimated body mass index is [...] of: PALLAVI Mccord documented in this encounter [facility] 08-21-2024 History of Presen t illness Narrative [...] or undercooked meat, and stay away from [facility]. Patient has been consulted regarding any [...] Eric Holly DO documented in this encounter [facility] 07-21-2024 History of Presen t illness Narrative [...] or undercooked meat, and stay away from [facility]. Patient has also been advised to [...] Keiko Bruce MA documented in this encounter [facility] 04-21-2024 Evaluation note Diagnosis Onset Date Resolution Acute right otitis media acute April 21, 2024 1:26pm Viral URI acute June 08, 2024 9:51am [facility] Work Phone: [employer] note* Diagnosis Onset Date Resolution Status Strep throat acute [facility] Work Phone: [employer] note* Diagnosis Onset Date Resolution Status Acute right otitis media acu te [facility] Work Phone: [employer] note* Diagnosis Missed menses , unspecified gestational age Encounter for supervision of normal first in first trimester [facility] 14 [facility] of Second trimester state, incidental Tinea pedis, unspecified laterality History of pre-eclampsia History of anemia Personal history of diseases of blood and blood-forming organs documented in this encounter [facility]uation note* Diagnosis Onset Date Resolution Status Admit Date Viral URI with cough acute Febr uary 2024 3:37pm [facility] Work Phone: [employer] note* Diagnosis Well woman exam with routine gynecological exam Routine gynecological examination Second trimester state, incidental 18 weeks gestation of Vaginal discharge Leukorrhea, not specified as infective STD exposure Screening, , for anatomic survey Encounter for anatomic survey Sinusitis, unspecified chronicity, unspecified location [facility] Diagnosis Second trimester state, incidental [...] glucose tolerance test documented in this encounter [facility] Summary [...] content) DATE CREATED AUTHOR 01/19/2018 [facility] DATE CREATED AUTHOR AUTHOR'S ORGANIZ ATION 01/19/2018 [facility] DATE CREATED AUTHOR AUTHOR'S ORGANIZ ATION 08/26/2022 [facility] DATE CREATED AUTHOR AUTHOR'S ORGANIZ ATION 12/02/2022 [facility] DATE CREATED AUTHOR AUTHOR'S ORGANIZ ATION 12/26/2024 [facility] EPIC Care Teams (unrecognized sec tion and content) Team Status: Active Member Role Status Dates Violet Cerda NP-C Primary Care Provider Active Team Status: Inactive Member Role Status Dates Violet Cerda ALINING INSPECTOR-C Primary Care Provider Active Start: December 22, [...] Inactive Member Role Status Dates Violet Cerda ALINING INSPECTOR-C Primary Care Provider Active Start: June 08, 2024 End: June 08, 2024 Mayte Joiner APRN Attending Provider Active Start: June 08, 2024 End: June 08, 2024 Lube Worker Relationship Specialty Start Date End Date Cuco Munoz MD [address] [place] [address] PCP - General Family Medicine 06/24/23 Lube Worker Relationship Specialty Start Date End Date Cuco Munoz MD [address] [place] [address] PCP - General Family Medicine 06/24/23 Lube Worker Relationship Specialty Start Date End Date Cuco Munoz MD [address] [place] [address] PCP - General Family Medicine 06/24/23 Lube Worker Relationship Specialty Start Date End Date Cuco Munoz MD [address] [place] [address] PCP - General Family Medicine 06/24/23 Team Status: Inactive Member Role Status Dates Violet Cerda ALINING INSPECTOR-C Primary Care Provider Active Start: September 08, 2024 End: September 08, 2024 VI Nevarez Active Start: August End: September 08, 2024 Mayte Joiner APRN Attending Provider Active Start: September 08, 2024 End: September 08, 2024 Lube Worker Relationship Specialty Start Date End Date Cuco Munoz MD [address] [place] [address] PCP - General Family Medicine 06/24/23 Lube Worker Relationship Specialty Start Date End Date Cuco Munoz MD [address] [place] [address] PCP - General Family Medicine 06/24/23 Lube Worker Relationship Specialty Start Date End Date Cuco Munoz MD [address] [place] [address] PCP - General Family Medicine 06/24/23 Lube Worker Relationship Specialty Start Date End Date Cuco Munoz MD [address] [place] [address] PCP - General Family Medicine 06/24/23 Lube Worker Relationship Specialty Start Date End Date Cuco Munoz MD [address] [place] [address] PCP - General Family Medicine 06/24/23 Lube Worker Relationship Specialty Start Date End Date Cuco Munoz MD [address] [place] [address] PCP - General Family Medicine 06/24/23 Lube Worker Relationship Specialty Start Date End Date Cuco Munoz MD [address] [place] [address] PCP - General Family Medicine 06/24/23 Lube Worker Relationship Specialty Start Date End Date Cuco Munoz MD [address] [place] [address] PCP - General Family Medicine 06/24/23 Lube Worker Relationship Specialty Start Date End Date Cuco Munoz MD [address] [place] [address] PCP - General Family Medicine 06/24/23 Lube Worker Relationship Specialty Start Date End Date Cuco Munoz MD [address] [place] [address] PCP - General Family Medicine 06/24/23 Lube Worker Relationship Specialty Start Date End Date Cuco Munoz MD [address] [place] [address] PCP - General Family Medicine 06/24/23 Lube Worker Relationship Specialty Start Date End Date Cuco Munoz MD [address] [place] [address] PCP - General Family Medicine 06/24/23 Lube Worker Relationship Specialty Start Date End Date Cuco Munoz MD [address] [place] [address] PCP - General Family Medicine 06/24/23 Goals [...] BE BASED ON THE PRIMARY CLINICAL RECORDS. [facility] [facility]. provides no warranty or guarantee of the accuracy or completeness of information in this document.
[2025-01-06 11:41] VITALS: BP 132/71; PULSE 101
== END 2025-01-06 12:15 | disposition home or self-care (01) ==
LOC: FBCO 11:35 → FBC 11:37
PROVIDERS: Visit Provider Obstetrics & Gynecology
DX: O24.419 Gestational diabetes mellitus in pregnancy, unspecified control (principal)
CPT/HCPCS: 59025

== ENCOUNTER 2025-01-10 15:58 | Outpatient (OUT) | payer MEDICAID, SELFPAY ==
--- OUTSIDE RECORDS SUMMARY | 2024-10-20 10:15 | XMS_ITS ---
Author Organization [facility] Serv es Address [address] [place] [address] Care Team Providers Care Medical Aide Name Role Phone Suki Mayer Primary Care Provider Halley Nugent Unavailable Clare Talley Unavailable [phone] REASON FOR VISIT BH f/u 2-4 weeks Encounters Encounter Location Date Provider Diagnosis [facility] [address] [place] [address] 10/20/2024 Clare Talley Plan Of Treatment Next Appt Details Provider Name:Karin Knowles, 04/25/2025 03:00:00 PM, [address] [place], [address], Progress Notes * MOUNIKA NELSONNURIAOB:1990 (34 yo F)Acc No.[id number]:10/20/2024 BH F/U - Patient Patient: ABRAM PALOMO Provider: Gerard Talley :1990 A ge:33 Y S ex:Female Date:10/20/2024 Address[address] [id number] Pcp:Suki Mayer Subjective: * Chief Complaints: * 1 . BH f/u 2-4 weeks. Objective: Therapeutic Interventions: Assessment: Plan: * Images: Care Plan Details* * Electronic signature of RISHI Torres on 01/10/2025 at 04:02 PM EDT Sign off status: Pending * Provider: Gerard Talley Date: 0 10/20/2024 Generated for Sujatha Rivera on: 0 01/10/2025 04:02 PM EDT
--- OUTSIDE RECORDS SUMMARY | 2025-01-09 13:40 | XMS_ITS | Encounter Summary ---
Author Organization [facility] Address [address] [place] [place] [address] Care Team Providers Care Selvage Machine Operator Name Role Phone Cuco Munoz MD Primary Care Provider [phone] Reason for Visit * Reason Comments Routine Visit Encounter Details Date Type Department Care Team (Late st Contact Info) Description 01/09/2025 1:40 PM EDT Routine [facility] OB [address] [place] [address] Eric Holly, DO [address] [place] [address] Third trimester ([facility]); 34 weeks gestation of ([facility]); H/O pre-eclampsia in prior , currently ([facility]); Diet controlled gestational diabetes mellitus (GDM), antepartum ([facility]) Social History Tobacco Use Types Packs/Day Years [...] Multiple Vitamins-Minerals (MULTIVITAMIN ADULT, MINERALS, PO) Multivitamin Sodydcly-Nqj-Jy-FA ( 1 + IRON PO) ALLERGIES Allergies [...] Second trimester ([facility]) 08/21/2024 Resolved Ambulatory Problems Diagnosis [...] nursing note reviewed. Exam conducted with a waterproofing machine operator present. Vitals: Estimated body mass index is 34.11 kg/m?? as calculated from the following: Height as of 06/24/23: 5' 5 . Weight as of this encounter: 205 lb. BP: 118/78 Patient's last menstrual period was 05/14/2024. ASSESSMENT & PLAN ICD-10-CM 1. Third trimester ([facility]) Z34.93 POCT urinalysis dipstick manually resulted 2. 34 weeks gestation of ([facility]) Z3A.34 3. H/O pre-eclampsia in prior , currently ([facility]) O09.299 4. Diet controlled gestational diabetes mellitus (GDM), antepartum ([facility]) O24.410 Return OB: Patient presents today for [...] PM EDT Routine [facility] [address] [facility] [place] [phone] Eric Holly DO [address] [place] [address] documented as of this encounter Procedures Procedure Name Priority Date/Time Associated Diagnosis Comments POCT URINALYSIS DIPSTICK Routine 01/09/2025 1:53 PM EDT Third trimester ([facility]) documented in this encounter Results [...] Third trimester ([facility]) state, incidental 34 weeks gestation of ([facility]) H/O pre-eclampsia in prior , currently ([facility]) Diet controlled gestational diabetes mellitus (GDM), antepartum ([facility]) documented in this encounter Care Teams Selvage Machine Operator Relationship Specialty Start Date End Date Cuco Munoz MD [address] [place] [address] PCP - General Family Medicine 06/24/23 documented as of this encounter
--- OUTSIDE RECORDS SUMMARY | 2025-01-10 16:01 | XMS_ITS | Clinical Summary ---
Author Organization [facility] Address [address] [place] [address] Care Team Providers Care Chef & Owner Name Role Phone Cuco Munoz MD Primary Care Provider [phone] Allergies Active Allergy Reactions Criticality Noted Date Comments Amoxicillin Hives,Rash Low 02/07/2017 Other Reaction(s): hives, Unknown Azithromycin Hives,Rash Low 02/07/2017 Cefaclor Hives,Rash Low 02/07/2017 Clarithromycin Hives,Rash,Unknown Low 02/07/2017 Other Reaction(s): hives Doxycycline Hives,Rash Low 06/24/2023 Sulfa Antibiotics Hives,Rash Low 02/06/2017 Other Reaction(s): hives, Unknown Sulfamethoxazole-Trimetho prim Hives,Rash Low 02/07/2017 Other Reaction(s): hives, Unknown Medications Uyadgaee-Hlx-Au-FA ( 1 + IRON PO) Active albuterol HFA 90 mcg/act inhaler every 4 (four) hours 025 Active Multiple Vitamins-Minerals (MULTIVITAMIN ADULT, MINERALS, PO) Multivitamin Active Alcohol Swabs (Alcohol Prep Pad) 70 % padsIndications:Ge stational diabetes mellitus (GDM), antepartum, gestational diabetes method of control unspecified (HHS-HCC),Elevated glucose tolerance test Apply 1 Pad topically Daily Use four times daily to check FSBS. 150 each 3 025 Active Blood Glucose Monitoring Suppl (ONE TOUCH ULTRA 2) w/Device kitIndications:Ges tational diabetes mellitus (GDM), antepartum, gestational diabetes method of control unspecified (HHS-HCC),Elevated glucose tolerance test USE FOUR TIMES DAILY TO CHECK FASTING BLOOD SUGAR. IN THE MORNING PRIOR TO BREAKFAST & 1 HOUR AFTER EACH MEAL FOR A TOTAL OF 4TIMES DAILY. 1 kit Active Glucose Blood (Blood Glucose Test) stripIndications:G estational diabetes mellitus (GDM), antepartum, gestational diabetes method of control unspecified (HHS-HCC),Elevated glucose tolerance test 1 strip by In Vitro route Daily Use in the morning prior to breakfast, 1 hour after each meal for a total of 4times daily. 150 strip 3 025 2024 Active Lancets Ultra Thin miscIndications:Ge stational diabetes mellitus (GDM), antepartum, gestational diabetes method of control unspecified (HHS-HCC),Elevated glucose tolerance test 1 each by In Vitro route Daily Use to check FSBS four times daily 150 each 3 025 2024 Active pantoprazole (ProtoNix) 20 MG EC tablet Pantoprazole Sodium 2024 Discontinued Lancets Ultra Thin miscIndications:Ge stational diabetes mellitus (GDM), antepartum, gestational diabetes method of control unspecified (HHS-HCC),Elevated glucose tolerance test 1 each by In Vitro route Daily Use to check FSBS four times daily 150 each 3 025 2024 Glucose Blood (Blood Glucose Test) stripIndications:G estational diabetes mellitus (GDM), antepartum, gestational diabetes method of control unspecified (HHS-HCC),Elevated glucose tolerance test 1 strip by In Vitro route Daily Use in the morning prior to breakfast, 1 hour after each meal for a total of 4times daily. 150 strip 3 025 2024 Discontinued(R eorder) Blood Glucose Monitoring Suppl (D-Care Glucometer) w/Device kitIndications:Ges tational diabetes mellitus (GDM), antepartum, gestational diabetes method of control unspecified (HHS-HCC),Elevated glucose tolerance test 1 kit Daily Use [...] 08/21/2024 History of pre-eclampsia 08/21/2024 Second trimester ([facility]) 08/21/2024 Estimated Date of Delivery Comme nts Yes 02/16/2025 Based on Ultraso und Encounters Date Type Department Care Team Description 01/09/2025 1:40 PM EDT Routine [facility] [address] [place] [address] Kermit Holly, Third trimester ([facility]); 34 weeks gestation of ([facility]); H/O pre-eclampsia in prior , currently ([facility]); Diet controlled gestational diabetes mellitus (GDM), antepartum ([facility]) 01/09/2025 Bamboo flowsheet [facility] [address] [place] [address] Kermit Holly, DO 01/06/2025 Travel 01/04/2025 Telephone [facility] [address] [place] [phone] Priscila Landry MA 01/03/2025 Clinisync Result Encounter [facility] External Department Unsolicited Kermit Holly, DO 01/01/[address] [facility] [address] [place] [phone] Priscila Landry MA 12/27/2024 Clinisync Result Encounter [facility] External Department Unsolicited Kermit Holly, DO 12/27/2024 Clinisync Result Encounter [facility] External Department Unsolicited Kermit Holly, DO 12/25/2024 2:00 PM EDT Routine [facility] [address] [facility] [facility] [address] [address] Kermit Holly, DO 32 weeks gestation of ([facility]); Third trimester ([facility]); Gestational diabetes mellitus (GDM), antepartum, gestational diabetes method of control unspecified ([facility]); Elevated glucose tolerance test 12/25/[address] [place] [address] Kermit Holly, Gestational diabetes mellitus (GDM), antepartum, gestational diabetes method of control unspecified ([facility]); Elevated glucose tolerance test 12/22/2024 Travel 12/13/2024 2:30 PM EDT Routine [facility] [address] [place] [address] Kermit Holly, 30 weeks gestation of ([facility]); Third trimester ([facility]); Gestational diabetes mellitus (GDM), antepartum, gestational diabetes method of control unspecified ([facility]) 12/13/2024 Bamboo flowsheet [facility] [address] [place] [address] Kermit Holly, 12/10/2024 Travel 11/28/2024 1:50 PM EDT Routine [facility] [address] [place] [address] Kermit Holly, Third trimester ([facility]); 28 weeks gestation of ([facility]) 11/28/2024 Bamboo flowsheet [facility] [address] [place] [address] Kermit Holly, 11/25/2024 Travel 11/23/[address] [address] [place] [address] Keiko Bruce MA 11/23/2024 Clinisync Result Encounter [facility] External Department Unsolicited Kermit Holly, 11/16/2024 Clinisync Result Encounter [facility] External Department Unsolicited Kermit Holly, DO 11/07/2024 1:20 PM EDT Routine [facility] [address] [place] [address] Kermit Holly DO Second trimester ([facility]); 25 weeks gestation of ([facility]); Diabetes mellitus screening 11/07/2024 Bamboo flowsheet [facility] OB [address] [place] [address] [place] [address] Kermit Holly DO 11/05/2024 Travel 10/27/2024 Clinisync Result Encounter [facility] External Department Unsolicited Kermit Holly DO from Last 3 Months Social History Tobacco [...] (205 lb) 01/09/2025 1:45 PM EDT Height 165.1 cm (5' 5 ) 06/24/2023 10:09 AM EST Body Mass Index 34.11 06/24/2023 10:09 AM EST Plan of Treatment Upcoming Encounters Date Type Department Care Team (Late st Contact Info) Description 01/22/2025 1:30 PM EDT Routine [facility] [address] [facility] [address] Kermit Holly DO [address] [place] [address] [address] [place], [place] [phone] Health Maintenance Due Date Last Done Comments Influenza Vaccine (Season Ended) 2025 Cervical Cancer Screening 09/18/2025 HPV/Cotest 09/18/2025 Pap Smear 09/18/2025 09/18/2024 Procedures Procedure Name Priority Date/Time Associated Diagnosis Comments POCT URINALYSIS DIPSTICK Routine 01/09/2025 1:53 PM EDT Third trimester ([facility]) US OB BPP W NON-STRESS 01/03/2025 8:19 PM EDT US OB GROWTH 12/27/2024 7:37 PM EDT US OB BPP W NON-STRESS 12/27/2024 7:37 PM EDT POCT URINALYSIS DIPSTICK Routine 12/25/2024 2:32 PM EDT 32 weeks gestation of ([facility]) POCT URINALYSIS DIPSTICK Routine 12/13/2024 3:07 PM EDT 30 weeks gestation of ([facility]) Third trimester ([facility]) GLUCOSE 1 HOUR Routine 11/23/2024 10:40 AM EDT ALL CBC WITH AUTO DIFF Routine 11/23/2024 10:40 AM EDT [facility] UA (CLEAN/CATCH) LITHOGRAPHIC ARTIST/MICRO IF IND. Routine 11/16/2024 7:27 PM EDT POCT URINALYSIS DIPSTICK Routine 11/07/2024 1:47 PM EDT Second trimester ([facility]) US OB INCOMPLETE ANATOMY 10/27/2024 7:11 PM EDT PAP SMEAR Routine 09/18/2024 12:00 AM EST from Last 3 Months or Most Recently Relevant to Health Maintenance Results * POCT urinalysis dipstick manually resulted (01/09/2025 1:53 PM EDT) Only the most recent of4 resultswithin the time period is included. Color, UA Yellow Clarity, UA Clear Glucose, UA Negative Negative - 1999(110) ++++ mg/dL Bilirubin, UA Negative Negative - [...] Positive Urine 01/09/2025 1:53 PM EDT us Kermit Holly DO POINT OF CARE TEST ENTER/EDIT OR DERABLES Final Result * US OB BPP W NON-STRESS (01/03/2025 8:19 PM EDT) Only the most recent of2 resultswithin the time period is included. Anatomical Region Laterality Modality Other 01/03/2025 8:19 PM EDT Narrative 01/03/2025 8:22 [place] [address] Ultrasound Report Signed Patient: LYNNETTE NELSON MR#: [id number] : 1990 Acct:[id number] Age/Sex: 34 / F ADM Date: 01/03/25 Loc: US Attending Dr: Kermit Holly D.O. Ordering Physician: Kermit Holly D.O. Date of Service: 01/03/25 Procedure(s): US OB BPP w non-stress Accession Number(s): [id number] cc: Kermit Holly D.O.; Physician,Non-Staff M.DMicah [address] [address] Patient Name: LYNNETTE NELSON MRN: [id number] date: 1990 Sex: F Assigned Patient Location: [facility] Current Patient Location: Accession/Order Number: [id number] Exam Date: 01/03/2025 20:18 Report Date: 01/03/2025 20:19 At the request of: KERMIT HOLLY DO Procedure: US OB BPP w [...] Chaudhari M.D. 01/03/2025 8:19 PM Dictation Location: [place] [address] Electronically authenticated by: [id number] Y Date: 01/03/2025 20:19 Dictated By: David Chaudhari D.O. Signed By: 01/03/252021 DD/ 18 TD/TT: Registered Nurse Renal: Procedure Note Radiology, Radiologist, MD - 01/03/2025 [place] [address] Ultrasound Report Signed Patient: LYNNETTE NELSON RMR#: [id number] : 1990Acct:[id number] Age/Sex: 34 / FADM Date: 01/03/25 Loc: US Attending Dr: Kermit Holly D.O. Ordering Physician: Kermit Holly D.O. Date of Service: 01/03/25 Procedure(s): US OB BPP w non-stress Accession Number(s): [id number] cc: Kermit Holly D.O.; Physician,Non-Staff MPhillip The [address] [address] Patient Name: LYNNETTE NELSON MRN: [id number] date: 1990 Sex: F Assigned Patient Location: [facility] Current Patient Location: Accession/Order Number: [id number] Exam Date: 01/03/2025 20:18 Report Date: 01/03/2025 20:19 At the request of: KERMIT HOLLY DO Procedure: US OB BPP w non-stress Ultrasound biophysical profile HISTORY: Gestational diabetes Adequate breathing movement, gross body movement, tone and amniotic fluid volume for total score of 8 out of 8. The amniotic fluidindex is 15.2cm within normal limits. The heart rate 135 bpm. US/US OB BPP w non-stress IMPRESSION: Adequate ultrasound biophysical profile Impression dictated by: David Chaudhari M.D. 01/03/2025 8:19 PM Dictation [facility] Electronically authenticated by: [id number] Y Date: 0:19 Dictated By: David Chaudhari D.O. Signed By:01/03/252021 DD/ 18 TD/TT: Registered Nurse Renal: us Kermit Holly DO [facility] Final Result * US OB GROWTH (12/27/2024 7:37 PM EDT) Anatomical Region Laterality Modality Other 12/27/2024 7:37 PM EDT Narrative 12/27/2024 7:40 [place] [address] Ultrasound Report Signed Patient: LYNNETTE NELSON MR#: [id number] : 1990 Acct:[id number] Age/Sex: 34 / F ADM Date: 12/27/24 Loc: US Attending Dr: Kermit Holly D.O. Ordering Physician: Kermit Holly D.O. Date of Service: 12/27/24 Procedure(s): US OB growth Accession Number(s): [id number] cc: Kermit Holly D.O.; Physician,Non-Staff [place] The [address] [address] Patient Name: LYNNETTE NELSON MRN: [id number] date: 1990 Sex: F Assigned Patient Location: US Current Patient Location: Accession/Order Number: [id number] Exam Date: 12/27/2024 19:33 Report Date: 12/27/2024 [...] Chaudhari M.D. 12/27/2024 7:37 PM Dictation Location: [place] [address] Electronically authenticated by: [id number] Y Date: 12/27/2024 19:37 Dictated By: David Chaudhari D.O. Signed By: 12/27/241939 DD/ 36 TD/TT: Registered Nurse Renal: Procedure Note Radiology, Radiologist, MD - 12/28/2024 [place] [address] Ultrasound Report Signed Patient: LYNNETTE NELSON RMR#: [id number] : 1990Acct:[id number] Age/Sex: 34 / FADM Date: 12/27/24 Loc: US Attending Dr: Kermit Holly D.O. Ordering Physician: Kermit Holly D.O. Date of Service: 12/27/24 Procedure(s): US OB growth Accession Number(s): [id number] cc: Kermit Holly D.O.; Physician,Non-Staff [place] The [place] [id number] Patient Name: LYNNETTE NELSON MRN: [id number] date: 1990 Sex: F Assigned Patient Location: US Current Patient Location: Accession/Order Number: [id number] Exam Date: 12/27/2024 19:33 Report Date: 12/27/2024 [...] Chaudhari M.D. 12/27/2024 7:37 PM Dictation Location: [facility] Electronically authenticated by: [id number] Y Date: 9:37 Dictated By: David Chaudhari D.O. Signed By:12/27/241939 DD/ 36 TD/TT: Registered Nurse Renal: us Kermit Elayne DO [facility] Final Result * (ABNORMAL) GLUCOSE 1 HOUR (11/23/2024 10:40 AM EDT) GLUCOSE 1 HOUR 191(H) <130 mg/dL [facility] 11/23/2024 10:4 0 AM EDT 11/23/2024 10:42 AM EDT Narrative [facility] - 11/23/2024 11:31 AM EDT us Kermit Elayne DO LAB BLOOD ORDERABLES Final Resul t [facility] * (ABNORMAL) ALL CBC WITH AUTO DIFF (11/23/2024 10:40 AM EDT) [facility] WBC 9.0 4.0 - 11.0 10 3/uL [facility] RBC 3.58(L) 4.20 - 5.40 10 6/uL [facility] HGB 10.0(L) 12.0 - 16.0 g/dL [facility] TB[facility] HCT 30.0(L) 36.0 - 48.0 % [facility] [...] Narrative [facility] - 11/23/2024 10:52 AM EDT us Kermit Elayne DO [facility] Final Result [facility] TB * [facility] UA (CLEAN/CATCH) LITHOGRAPHIC ARTIST/MICRO IF IND. (11/16/2024 7:27 PM EDT) COLOR [...] 11/16/2024 8:12 PM EDT Kermit Holly DO [facility] Final Result Performing Organization Address City/State/[facility] Co de Phone Number [facility] * US OB INCOMPLETE ANATOMY (10/27/2024 7:11 PM EDT) Anatomical Region Laterality Modality Other 10/27/2024 7:11 PM EDT Narrative 10/27/2024 7:14 [place] [address] Ultrasound Report Signed Patient: LYNNETTE NELSON MR#: [id number] : 1990 Acct:[id number] Age/Sex: 33 / F ADM Date: 10/27/24 Loc: US Attending Dr: Kermit Holly D.O. Ordering Physician: Kermit Holly D.O. Date of Service: 10/27/24 Procedure(s): US OB incomplete anatomy Accession Number(s): [id number] cc: Kermit Holly D.O.; Physician,Non-Staff [place] The [place] [id number] Patient Name: LYNNETTE NELSON MRN: [id number] date: 1990 Sex: F Assigned Patient Location: US Current Patient Location: US Accession/Order Number: [id number] Exam Date: 10/27/2024 19:10 Report Date: 10/27/2024 [...] David Chaudhari M.D.10/27/2024 7:11 PM Dictation Location: [place] [address] Electronically authenticated by: [id number] Y Date: 10/27/2024 19:11 Dictated By: David Chaudhari D.O. Signed By: 10/27/241913 DD/ 10 TD/TT: Registered Nurse Renal: Procedure Note Radiology, Radiologist, MD - 10/27/2024 [place] [address] Ultrasound Report Signed Patient: LYNNETTE NELSON RMR#: [id number] : 1990Acct:[id number] Age/Sex: 33 / FADM Date: 10/27/24 Loc: US Attending Dr: Kermit Holly D.O. Ordering Physician: Kermit Holly D.O. Date of Service: 10/27/24 Procedure(s): US OB incomplete anatomy Accession Number(s): [id number] cc: Kermit Holly D.O.; Physician,Non-Staff [place] The [place] [address] Patient Name: LYNNETTE NELSON MRN: [facility]:[id number] date: 1990 Sex: F Assigned Patient Location: Current Patient Location: US Accession/Order Number: [id number] Exam Date: 10/27/2024 19:10 Report Date: 10/27/2024 [...] David Chaudhari M.D.10/27/2024 7:11 PM Dictation Location: [place] [address] Electronically authenticated by: [id number] Y Date: 9:11 Dictated By: David Chaudhari D.O. Signed By:10/27/241913 DD/ 10 TD/TT: Registered Nurse Renal: us Kermit Inmano DO [facility] Final Result * Pap Smear (09/18/2024 12:00 AM EST) Swab Cervical swab / Unknown us Loraine OLIVO LAB CYTOLOGY ORDERABLES Final Re sult EXTERNAL LAB from Last 3 Months or Most Recently Relevant to Health Maintenance Insurance [facility] MEDICAID [place] Care Teams Chef & Owner Relationship Specialty Start Date End Date Cuco Munoz MD [address] [place] [address] PCP - General Family Medicine 06/24/23
--- OUTSIDE RECORDS SUMMARY | 2025-01-10 16:01 | XMS_ITS | Patient Health Record ---
Author Organization [facility] Serv[facility] es Address [address] [place] [address] Care Team Providers Care Live Source Operator Name Role Phone Suki Mayer Primary Care Provider [phone] Halley Nugent Unavailable Clare Talley Unavailable [phone] Karin Knowles Unavailable [phone] Pema Law Unavailable [phone] Allergies Allergen (clinical drug ingredient) Drug/Non Drug Allergy documented on EMR Reaction Allergy Type Onset Date Status sulfamethoxazole / trimethoprim Bactrim hives Drug Allergy Active Biaxin hives Drug Allergy Active Cecon hives Drug Allergy Active amoxicillin Amoxicillin hives Drug Allergy Act violeta Substance with sulfonamide structure and antibacterial mechanism of action (substance) Sulfa Antibiotics hives Drug Allergy A ctive Reason For Referral No Information Medications Medication SIG (Take, Route, Frequency, Duration) Notes Start Date End Date Status Aspirin 81 81 MG 1 tablet Orally Once a day Active Albuterol Sulfate HFA 108 (90 Base) MCG/ACT 1 puff as needed Inhalation every 4 hrs for 30 days Active Active Social History Tobacco Use: Social History Observation Description Date Details (start date - stop date) Never Smoker NA - NA Tobacco Control (Standard) Question Answer Notes Tobacco use: Nonsmoker Problems Problem Type SNOMED Code ICD Code Onset Dates Problem Status W/U Status Risk Notes Problem [id number] Mild persistent asthma without complication (J45.30) Active confirmed Problem Depression, major, recurrent, mild (F33.0) Active confirmed with anxious distress Vital Signs Heart Rate 83 /min 09/12/2024 Temperature 97.9 degrees Fahrenheit 09/12/2024 Respiratory Rate 16 /min 09/12/2024 Oximetry 97 % 09/12/2024 Blood pressure diastolic 75 mm Hg 09/12/2024 Height 65 in 09/12/2024 Blood pressure systolic 112 mm Hg 09/12/2024 Weight 182 lbs 09/12/2024 BMI 30.28 kg/m2 09/12/2024 Encounters Encounter Location Date Provider Diagnosis [facility] [address] [place] [address] 03/29/2024 [place] [address] [place] [address] 06/08/2024 [place] [address] [place] [address] 06/26/2024 [place] [address] [place] [address] 09/12/2024 Suki Mayer Mild persistent asth ma without complication J45.30 and Influenza A J10.1 [facility] [address] [place] [address] 04/13/2024 Clare Shedron Depression, major, recurrent, mild F33.0 [facility] [address] [place] [place] [address] 04/25/2024 Clare Shedron Depression, major, recurrent, mild F33.0 [facility] [address] [place] [address] 05/09/2024 Clare Shedron Depression, major, recurrent, mild F33.0 [facility] [address] [place] [address] 06/26/2024 Clare Shedron Depression, major, recurrent, mild F33.0 [facility] [address] [place] [address] 07/13/2024 Clare Shedron Depression, major, recurrent, mild F33.0 [facility] [address] [place] [address] 08/11/2024 Clare Shedron Depression, major, recurrent, mild F33.0 [facility] [address] [place] [address] 08/25/2024 Clare Talley Depression, major, recurrent, mild F33.0 [facility] [address] [place] [address] 09/29/2024 Clare Talley Depression, major, recurrent, mild F33.0 [facility] [address] [place] [address] 05/24/2024 Clare Talley Depression, major, recurrent, mild F33.0 [facility] [address] [place] [address] 10/05/2024 Karin Knowles Encounter for dental examination and cleaning with abnormal findings Z01.21 and Acute gingivitis, plaque induced K05.00 Assessments Encounter Date Diagnosis (ICD Code) Assessment Notes Treatment Notes Treatment Clinical Notes Section Notes 04/13/2024 Depression, major, recurrent, mild (ICD-10 - F33.0) with anxious distress 04/25/2024 Depression, major, recurrent, mild (ICD-10 - F33.0) with anxious distress 05/09/2024 Depression, major, recurrent, mild (ICD-10 - F33.0) with anxious distress 05/24/2024 Depression, major, recurrent, mild (ICD-10 - F33.0) with anxious distress 06/26/2024 Depression, major, recurrent, mild (ICD-10 - F33.0) with anxious distress 07/13/2024 Depression, major, recurrent, mild (ICD-10 - F33.0) with anxious distress 08/11/2024 Depression, major, recurrent, mild (ICD-10 - F33.0) with anxious distress 08/25/2024 Depression, major, recurrent, mild (ICD-10 - F33.0) with anxious distress 09/12/2024 Mild persistent asthma without complication (ICD-10 - J45.30) Patient with known asthma. She states she has been out of her albuterol inhaler and does have some wheezing on examination likely secondary to recent influenza infection. No resp distress. Will start albuterol inhaler as needed. Discussed return precautions. Work note given for recent flu infection. 09/12/2024 Influenza A (ICD-10 - J10.1) Recent influenza infection with improving symptoms. Continue with supportive care. DIscussed importance of adequate hydration, especially in . Educated on BRAT diet and advance as tolerated. She is to call with any concerns. 09/29/2024 Depression, major, recurrent, mild (ICD-10 - F33.0) with anxious distress 10/05/2024 Encounter for dental examination and cleaning with abnormal findings (ICD-10 - Z01.21) 10/05/2024 Acute gingivitis, plaque induced (ICD-10 - K05.00) Plan Of Treatment Next Appt Details Provider Name:Karin Knowles, 04/25/2025 03:00:00 PM, [address] [place], [address], Insurance Providers Payer Name Payer Address Payer Phone Subscriber Number Group Number Insured Name Patient Relationship to Insured Coverage Start Date Coverage End Date [employer] [place] Medicaid [address] [place] [address] [id number] ABRAM NELSON Self - patient is the insured 3 Wrap CFC [facility] [address] [place] [address] [id number] ABRAM NELSON Self - patient is the insured 3 [facility] termed 22 [address] [place] [address] [id number] ABRAM NELSON Self - patient is the insured 2 3 zMedicaid CFC after [place] BCBS-term ed 22 [address] [place] [address] [id number] ABRAM NELSON Self - patient is the insured 2 3 zDENTAL DQ [employer] -termed 22 [address] [place] [id number] ABRAM NELSON Self - patient is the insured 2 3 zDental MEDICAID CFC after [place] -termed 22 [address] [place] [address] [id number] ABRAM NELSON Self - patient is the insured 2 3 Dental [place] [address] [place] [phone] [id number] ABRAM NELSON Self - patient is the insured 3 Dental Wrap [facility] [address] [place] [address] [id number] ABRAM NELSON Self - patient is the insured 3 [facility] [address] [place] [address] [id number] ABRAM NELSON Self - patient is the insured 4 BH Wrap [facility] [address] [place] [address] [id number] ABRAM NELSON Self - patient is the insured 4 DENTAL [place] [address] [address] [place] [address] [phone] [id number] ABRAM NELSON Self - patient is the insured 5 Medical (General) History Medical History History ICD Code Asthma
--- OUTSIDE RECORDS SUMMARY | 2025-01-10 16:01 | XMS_ITS | Encounter Summary ---
Author Organization [facility] Address [address] [facility] [place] [address] Care Team Providers Care Lab Pack Chemist Name Role Phone Cuco Munoz MD Primary Care Provider [phone] Reason for Visit * Reason Comments Med Refill Encounter Details Date Type Department Care Team (Late st Contact Info) Description 12/25/2024 Refill [facility] OB [address] [facility] [address] Eric Holly, DO [address] [facility] [address] Mary Uriostegui, [facility]11 Gestational diabetes mellitus (GDM), antepartum, gestational diabetes method of control unspecified ([facility]); Elevated glucose tolerance test Social History Tobacco [...] [address] [facility] [place] [address] Eric Holly, [address] [facility] [place] [address] documented as of this encounter Visit Diagnoses Diagnosis Gestational diabetes mellitus (GDM), antepartum, gestational diabetes method of control unspecified ([facility]) Elevated glucose tolerance test Impaired glucose tolerance test documented in this encounter Care Teams Lab Pack Chemist Relationship Specialty Start Date End Date Cuco Munoz MD [address] [place] [address] PCP - General Family Medicine 06/24/23 documented as of this encounter
--- NOTE | 2025-01-10 16:02 | US_ITS ---
[address] [address] Patient Name: ABRAM NELSON MRN: [id number] date: 1990 Sex: F Assigned Patient Location: [facility] Current Patient Location: Accession/Order Number: [id number] Exam Date: 01/10/2025 18:57 Report Date: 01/10/2025 19:01 At the request of: KERMIT MG DO Procedure: US OB BPP w non-stress US OB BPP w non-stress 01/10/2025 4:37 PM SIGNS AND SYMPTOMS: ^02/16/2025 ^GESTATIONAL DIABETES MELLITUS O24.419 PROTOCOL: Transabdominal sonographic images of the gravid uterus COMPARISON: None FINDINGS: Estimated gestational age is 34 weeks and 5 days. heart rate: 131 bpm Amniotic fluid index: 16.98 cm with the deepest vertical pocket measuring 5.7 cm. Biophysical profile: movements: 2/2 tone: 2/2. breathing movements: 2/2 Amniotic fluid volume: 2/2 US/US OB BPP w non-stress IMPRESSION: Biophysical profile score: 8/8 heart rate: 131 bpm Amniotic fluid index: 16.98 cm with the deepest vertical pocket measuring 5.7 cm. Impression dictated by: Lavelle Jordan M.D. 01/10/2025 7:01 PM Dictation Location: [place] [address] Electronically authenticated by: [id number] Y Date: 01/10/2025 19:01
--- OUTSIDE RECORDS SUMMARY | 2025-01-10 16:02 | XMS_ITS | Encounter Summary ---
Author Organization [facility] Address [address] [place] [address] Care Team Providers Care Class A Truck Driver Name Role Phone Cuco Munoz MD Primary Care Provider [phone] Encounter Details Date Type Department Care Team (Late Contact Info) Description 01/01/2025 Telephone [facility] OB [address] [place] [address] Priscila Landry MA Social History Tobacco Use [...] BCP OB [address] [place] [address] Eric Holly, DO [address] [facility] [place] [address] documented as of this encounter Visit Diagnoses Diagnosis Gestational diabetes mellitus (GDM), antepartum, gestational diabetes method of control unspecified ([facility]) Elevated glucose tolerance test Impaired glucose tolerance test documented in this encounter Care Teams Class A Truck Driver Relationship Specialty Start Date End Date Cuco Munoz MD [address] [place], [place] [address] PCP - General Family Medicine 06/24/23 documented as of this encounter
--- OUTSIDE RECORDS SUMMARY | 2025-01-10 16:02 | XMS_ITS | Encounter Summary ---
Author Organization [facility] Address [address] [place] [address] Care Team Providers Care Bluing Oven Tender Name Role Phone Cuco Munoz MD Primary Care Provider [phone] Encounter Details Date Type Department Care Team (Late st Contact Info) Description 12/27/2024 Clinisync Result Encounter [facility] External Department Unsolicited Kermit Holly, DO [address], [facility]11 Social History Tobacco Use Types Packs/Day Years [...] Description 01/22/2025 1:30 PM EDT Routine [facility] OB [address] [place] [address] Kermit Holly DO [address] [place] [address] [place] [address] documented as of this encounter Procedures Procedure Name Priority Date/Time Associated Diagnosis Comments US OB BPP W NON-STRESS 12/27/2024 7:37 PM EDT documented in this encounter Results * US OB BPP W NON-STRESS (12/27/2024 7:37 PM EDT) Anatomical Region Laterality Modality Other 12/27/2024 7:37 PM EDT Narrative 12/27/2024 7:40 [place] [address] Ultrasound Report Signed Patient: LYNNETTE NELSON MR#: [id number] : 1990 Acct:[id number] Age/Sex: 34 / F ADM Date: 12/27/24 Loc: US Attending Dr: Kermit Holly D.O. Ordering Physician: Kermit Holly D.O. Date of Service: 12/27/24 Procedure(s): US OB BPP w non-stress Accession Number(s): [id number] cc: Kermit Holly D.O.; Physician,Non-Staff [place] [address] Patient Name: LYNNETTE NELSON MRN: [id number] date: 1990 Sex: F Assigned Patient Location: US Current Patient Location: Accession/Order Number: [id number] Exam Date: 12/27/2024 19:33 Report Date: 12/27/2024 [...] Chaudhari M.D. 12/27/2024 7:37 PM Dictation Location: [place] [address] Electronically authenticated by: [id number] Y Date: 12/27/2024 19:37 Dictated By: [place] Chaudhari D.O. Signed By: 12/27/241939 DD/ 36 TD/TT: Ichthyology Teacher: Procedure Note Radiology, Radiologist, - 12/28/2024 [place] [address] Ultrasound Report Signed Patient: LYNNETTE NELSON RMR#: [id number] : 1990Acct:[id number] Age/Sex: 34 / FADM Date: 12/27/24 Loc: US Attending Dr: Kermit Holly D.O. Ordering Physician: Kermit Holly D.O. Date of Service: 12/27/24 Procedure(s): US OB BPP w non-stress Accession Number(s): [id number] cc: Kermit Holly D.O.; Physician,Non-Staff [place] [address] Patient Name: LYNNETTE NELSON MRN: [facility]:[id number] date: 1990 Sex: F Assigned Patient Location: US Current Patient Location: Accession/Order Number: [id number] Exam Date: 12/27/2024 19:33 Report Date: 12/27/2024 [...] Chaudhari M.D. 12/27/2024 7:37 PM Dictation [facility] Electronically authenticated by: [id number] Y Date: 9:37 Dictated By: [place] Chaudhari D.O. Signed By:12/27/241939 DD/ 36 TD/TT: Ichthyology Teacher: us Kermit Holly DO [facility] Final Result documented in this encounter Visit Diagnoses Not on filedocumented in this encounter Care Teams Bluing Oven Tender Relationship Specialty Start Date End Date Cuco Munoz MD [address] [place] [address] PCP - General Family Medicine 06/24/23 documented as of this encounter
--- OUTSIDE RECORDS SUMMARY | 2025-01-10 16:02 | XMS_ITS | Encounter Summary ---
Author Organization [facility] Address [address] [place] [address] Care Team Providers Care Tar Heater Name Role Phone Cuco Munoz MD Primary Care Provider [phone] Encounter Details Date Type Department Care Team (Late st Contact Info) Description 12/27/2024 Clinisync Result Encounter [facility] External Department Unsolicited Kermit Holly, DO [address], [facility] Social History Tobacco Use Types Packs/Day Years [...] Description 01/22/2025 1:30 PM EDT Routine [facility] OB [address] [place] [address] Kermit Holly DO [address] [place] [address] [place] [address] documented as of this encounter Procedures Procedure Name Priority Date/Time Associated Diagnosis Comments US OB GROWTH 12/27/2024 7:37 PM EDT documented in this encounter Results * US OB GROWTH (12/27/2024 7:37 PM EDT) Anatomical Region Laterality Modality Other 12/27/2024 7:37 PM EDT Narrative 12/27/2024 7:40 [place] [address] Ultrasound Report Signed Patient: LYNNETTE NELSON MR#: [id number] : 1990 Acct:[id number] Age/Sex: 34 / F ADM Date: 12/27/24 Loc: US Attending Dr: Kermit Holly D.O. Ordering Physician: Kermit Holly D.O. Date of Service: 12/27/24 Procedure(s): US OB growth Accession Number(s): [id number] cc: Kermit Holly D.O.; Physician,Non-Staff [place] [address] Patient Name: LYNNETTE NELSON MRN: [facility]:[id number] date: 1990 Sex: F Assigned Patient Location: US Current Patient Location: Accession/Order Number: [id number] Exam Date: 12/27/2024 19:33 Report Date: 12/27/2024 [...] Chaudhari M.D. 12/27/2024 7:37 PM Dictation Location: [place] [address] Electronically authenticated by: [id number] Y Date: 12/27/2024 19:37 Dictated By: [place] Chaudhari D.O. Signed By: 12/27/241939 DD/ 36 TD/TT: Technician'S Helper: Procedure Note Radiology, Radiologist, - 12/28/2024 [place] [address] Ultrasound Report Signed Patient: LYNNETTE NELSON RMR#: [id number] : 1990Acct:[id number] Age/Sex: 34 / FADM Date: 12/27/24 Loc: US Attending Dr: Kermit Holly D.O. Ordering Physician: Kermit Holly D.O. Date of Service: 12/27/24 Procedure(s): US OB growth Accession Number(s): [id number] cc: Kermit Holly D.O.; Physician,Non-Staff [place] [address] Patient Name: LYNNETTE NELSON MRN: [id number] date: 1990 Sex: F Assigned Patient Location: US Current Patient Location: Accession/Order Number: [id number] Exam Date: 12/27/2024 19:33 Report Date: 12/27/2024 [...] Chaudhari M.D. 12/27/2024 7:37 PM Dictation Location: [place] [address] Electronically authenticated by: [id number] Y Date: 9:37 Dictated By: [place] Chaudhari D.O. Signed By:12/27/241939 DD/ 36 TD/TT: Technician'S Helper: us Kermit Holly DO [facility] Final Result documented in this encounter Visit Diagnoses Not on filedocumented in this encounter Care Teams Tar Heater Relationship Specialty Start Date End Date Cuco Munoz MD [address] [place] [address] PCP - General Family Medicine 06/24/23 documented as of this encounter
--- OUTSIDE RECORDS SUMMARY | 2025-01-10 16:04 | XMS_ITS | Encounter Summary ---
Author Organization [facility] Address [address] [place] [address] Care Team Providers Care Honing Machine Operator Tool Name Role Phone Cuco Munoz MD Primary Care Provider [phone] Encounter Details Date Type Department Care Team (Late Contact Info) Description 01/09/2025 Bamboo flowsheet [facility] OB [address] [place] [address] Eric Holly [address] Maureen Uri[place], [facility]11 Social History Tobacco Use Types Packs/Day [...] Description 01/22/2025 1:30 PM EDT Routine [facility] OB [address] [place] [address] Eric Holly [facility] [address] [place], [facility]11 documented as of this encounter Visit Diagnoses Not on filedocumented in this encounter Care Teams Honing Machine Operator Tool Relationship Specialty Start Date End Date Cuco Munoz MD [address] [place] [address] PCP - General Family Medicine 06/24/23 documented as of this encounter
--- OUTSIDE RECORDS SUMMARY | 2025-01-10 16:05 | XMS_ITS | Encounter Summary ---
Author Organization [facility] Address [address] [place] [address] Care Team Providers Care Epoxy Specialist Name Role Phone Cuco Munoz MD Primary Care Provider [phone] Encounter Details Date Type Department Care Team (Late st Contact Info) Description 10/02/2024 Orders Only [facility] OB [address] [facility] [place] [address] Priscila Landry MA Social History Tobacco [...] 1:30 PM EDT Routine [facility] OB [address] [place] [address] Eric Holly, [facility] [address] [place], [place] [address] documented as of this encounter Procedures Procedure Name Priority Date/Time Associated Diagnosis Comments PAP SMEAR Routine 09/18/2024 12:00 AM EST documented in this encounter Results * Pap Smear (09/18/2024 12:00 AM EST) Swab Cervical swab / Unknown [facility] ORDERABLES Final Re sult EXTERNAL LAB documented in this encounter Visit Diagnoses Not on filedocumented in this encounter Care Teams Epoxy Specialist Relationship Specialty Start Date End Date Cuco Munoz MD [address] [place] [address] PCP - General Family Medicine 06/24/23 documented as of this encounter
--- OUTSIDE RECORDS SUMMARY | 2025-01-10 16:06 | XMS_ITS | Encounter Summary ---
Author Organization [facility] Address [address] [place] [address] Care Team Providers Care Productivity Engineer Name Role Phone Cuco Munoz MD Primary Care Provider [phone] Encounter Details Date Type Department Care Team (Late st Contact Info) Description 01/03/2025 Clinisync Result Encounter [facility] External Department Unsolicited Kermit Holly, DO [address], [facility]11 Social History Tobacco Use Types Packs/Day [...] Description 01/22/2025 1:30 PM EDT Routine [facility] OB [address] [place] [address] Kermit Holly DO [address] [place] [address] [place] [address] documented as of this encounter Procedures Procedure Name Priority Date/Time Associated Diagnosis Comments US OB BPP W NON-STRESS 01/03/2025 8:19 PM EDT documented in this encounter Results * US OB BPP W NON-STRESS (01/03/2025 8:19 PM EDT) Anatomical Region Laterality Modality Other 01/03/2025 8:19 PM EDT Narrative 01/03/2025 8:22 [place] [address] Ultrasound Report Signed Patient: LYNNETTE NELSON MR#: [id number] : 1990 Acct:[id number] Age/Sex: 34 / F ADM Date: 01/03/25 Loc: US Attending Dr: Kermit Holly D.O. Ordering Physician: Kermit Holly D.O. Date of Service: 01/03/25 Procedure(s): US OB BPP w non-stress Accession Number(s): [id number] cc: Kermit Holly D.O.; Physician,Non-Staff [place] [address] Patient Name: LYNNETTE NELSON MRN: [facility]:[id number] date: 1990 Sex: F Assigned Patient Location: [facility] Current Patient Location: Accession/Order Number: [id number] Exam Date: 01/03/2025 20:18 Report Date: 01/03/2025 [...] Chaudhari M.D. 01/03/2025 8:19 PM Dictation Location: [facility] Electronically authenticated by: [id number] Y Date: 01/03/2025 20:19 Dictated By: David Chaudhari D.O. Signed By: 01/03/252021 DD/ 18 TD/TT: Seat Coverer: Procedure Note Radiology, Radiologist, - 01/03/2025 [place] [address] Ultrasound Report Signed Patient: LYNNETTE NELSON RMR#: [id number] : 1990Acct:[id number] Age/Sex: 34 / FADM Date: 01/03/25 Loc: US Attending Dr: Kermit Holly D.O. Ordering Physician: Kermit Holly D.O. Date of Service: 01/03/25 Procedure(s): US OB BPP w non-stress Accession Number(s): [id number] cc: Kermit Holly D.O.; Physician,Non-Staff [place] [address] Patient Name: LYNNETTE NELSON MRN: [facility]:[id number] date: 1990 Sex: F Assigned Patient Location: [facility] Current Patient Location: Accession/Order Number: [id number] Exam Date: 01/03/2025 20:18 Report Date: 01/03/2025 [...] Chaudhari M.D. 01/03/2025 8:19 PM Dictation Location: [place] [address] Electronically authenticated by: [id number] Y Date: 0:19 Dictated By: David Chaudhari D.O. Signed By:01/03/252021 DD/ 18 TD/TT: Seat Coverer: us Kermit Holly DO [facility] Final Result documented in this encounter Visit Diagnoses Not on filedocumented in this encounter Care Teams Productivity Engineer Relationship Specialty Start Date End Date Cuco Munoz MD [address] [place] [address] PCP - General Family Medicine 06/24/23 documented as of this encounter
--- OUTSIDE RECORDS SUMMARY | 2025-01-10 16:07 | XMS_ITS | Encounter Summary ---
Author Organization [facility] Address [address] [place] [address] Care Team Providers Care Communications Field Technician Name Role Phone Cuco Munoz MD Primary Care Provider [phone] Encounter Details Date Type Department Care Team (Late Contact Info) Description 01/04/2025 Telephone [facility] [address] [place] [address] [place] [address] Priscila Landry MA Social History Tobacco [...] Telephone Encounter - Priscila Landry MA - 01/04/2025 1:05 PM EDT Pt requests proof of . Faxed to [phone]. Pt informed that letter was completed and faxed. documented in this encounter Plan of Treatment Upcoming Encounters Date Type Department Care Team (Late Contact Info) Description 01/22/2025 1:30 PM EDT Routine [facility] [address] [phone] Eric Holly, [address] [facility] [place] [address] documented as of this encounter Visit Diagnoses Not on filedocumented in this encounter Care Teams Communications Field Technician Relationship Specialty Start Date End Date Cuco Munoz MD [address] [place] [address] PCP - General Family Medicine 06/24/23 documented as of this encounter
--- OUTSIDE RECORDS SUMMARY | 2025-01-10 16:08 | XMS_ITS | Encounter Summary ---
Author Organization [facility] Address [address] [place] [address] Care Team Providers Care Song Writer Name Role Phone Cuco Munoz MD Primary Care Provider [phone] Encounter Details Date Type Department Care Team (Late st Contact Info) Description 07/21/2024 Clinisync Result Encounter [facility] External Department Unsolicited Kermit Holly, DO [address] [place], [facility] Social History Tobacco Use Types Packs/Day Years [...] Description 01/22/2025 1:30 PM EDT Routine [facility] [address] [place] [id number] Kermit Holly DO [address] [place] [address] [place] [address] documented as of this encounter Procedures Procedure Name Priority Date/Time Associated Diagnosis Comments US OB TRANSVAGINAL 07/21/2024 4: 17 PM EST documented in this encounter Results * US OB TRANSVAGINAL (07/21/2024 4:17 PM EST) Anatomical Region Laterality Modality Other 07/21/2024 4:17 PM EST Narrative 07/21/2024 4:20 [place] [address] Ultrasound Report Signed Patient: LYNNETTE NELSON MR#: [id number] : 1990 Acct:[id number] Age/Sex: 33 / F ADM Date: 07/21/24 Loc: [facility] Attending Dr: Kermit Holly D.O. Ordering Physician: Kermit Holly D.O. Date of Service: 07/21/24 Procedure(s): US OB transvaginal Accession Number(s): [id number] cc: Kermit Holly D.O.; Physician,Non-Staff M.DMicah The [address] [address] Patient Name: LYNNETTE NELSON MRN: [id number] date: 1990 Sex: F Assigned Patient Location: [facility] Current Patient Location: [facility] Accession/Order Number: [id number] Exam Date: 07/21/2024 10:15 Report Date: 07/21/2024 [...] Signed By: 07/21/24 1620 DD/ 1617 TD/TT: Exercise Manager: Procedure Note Radiology, Radiologist, MD - 07/21/2024 [place] [address] Ultrasound Report Signed Patient: LYNNETTE NELSON RMR#: [id number] : 1990Acct:[id number] Age/Sex: 33 / FADM Date: 07/21/24 Loc: [facility] Attending Dr: Kermit Holly D.O. Ordering Physician: Kermit Holly D.O. Date of Service: 07/21/24 Procedure(s): US OB transvaginal Accession Number(s): [id number] cc: Kermit Holly D.O.; Physician,Non-Staff [place] [facility] [place] [id number] Patient Name: LYNNETTE NELSON MRN: [id number] date: 1990 Sex: F Assigned Patient Location: [facility] Current Patient Location: [facility] Accession/Order Number: [id number] Exam Date: 07/21/2024 10:15 Report Date: 07/21/2024 [...] M.D. Signed By:07/21/24 162 DD/ 16 TD/TT: Exercise Manager: us Kermit Elayne DO [facility] Final Result documented in this encounter Visit Diagnoses Not on filedocumented in this encounter Care Teams Song Writer Relationship Specialty Start Date End Date Cuco Munoz MD [address] [place] [address] PCP - General Family Medicine 06/24/23 documented as of this encounter
[2025-01-10 16:39] VITALS: BP 128/71; PULSE 85
--- OUTSIDE RECORDS SUMMARY | 2025-01-10 18:14 | XMS_ITS | CCD ---
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 fL [facility] TBH EO # 0.2 [facility]H PLT 338 [facility] RBC 3.93 Low [facility] TB WBC 12.7 High [facility] HCG ( test) Ql (U)o n 07-21-2024 Interpretation and review of laboratory results Abnormal [facility] Preg Test, Ur Positive Negative [facility] Urinalysis macro (dipstick) panel (U)on 07-21-2024 Bilirubin, UA Negative Negative - 4(70) +++ mg/dL [facility] Blood, UA Negative Negative - 50 Oscar/mcL [facility] Clarity, UA Clear [facility] Color, UA Yellow [facility] Glucose, UA Negative Negative - 1999(110) ++++ mg/dL [facility] Interpretation and review of laboratory results Normal [facility] Ketones, UA Negative Negative - 160(16) ++++ mg/dL [facility] Leukocytes, UA Negative Negative - 500+++ Mike/mcL [facility] Nitrite, UA Negative Negative - Positive [facility] pH, UA 6.5 5 - 9 [facility] Protein, UA Negative Negative - 2000(20) ++++ mg/dL [facility] Spec Grav, UA 1.015 1 - 1.03 [facility] Urobilinogen, UA 0.2 0.2 - 12 mg/dL [facility] No Panel InformationOrdered By: Mayte Joiner on 06-08-2024 Quick Strep (POC) [facility] No Panel InformationOrdered By: Ketty Jones on 04-21-2024 Quick Strep (POC) [facility] Quick Strep (POC) [facility] No Panel InformationOrdered By: Chaz Miller on 12-22-2023 Quick Strep (POC) [facility] US PELVISon 08-25-2022 US PELVIS [...] for patient's symptoms. Electronically authenticated by: REMA ZILUANNPATRICE Date: 2022-08-25 07:25 Normal [facility] CHLAMYDIA/GONOCOCCUS JESS (SW AB/URINE/PAPon 08-23-2022 Chlamydia trachomatis, JESS Negative Normal Negative [facility] Comment on above: Performed By: #### C BC #### [facility] Laboratory [address] [place] [address] Dr. Babar Marks Neisseria gonorrhoeae, JESS Negative Normal Negative [facility] Comment on above: Performed By: #### C BC #### [facility] [address] [place] [address] Dr. Babar Marks VAGINITIS/VAGINOSIS DNA PROB Tam 08-21-2022 Kelsey species Negative Normal Negative [facility] Comment on above: Performed By: #### V AGINT #### [facility] [address] [place] [address] Dr. Babar Marks Gardnerella vaginalis Negative Normal Negative [facility] Comment on above: Performed By: #### V AGINT #### [facility] [address] [place] [address] Dr. Babar Marks Trichomonas vaginalis Negative Normal Negative [facility] Comment on above: Performed By: #### V AGINT #### [facility] [address] [place] [address] Dr. Babar Marks CBC AUTO DIFFon 07-30-2022 BASO # 0.1 103/ul Normal 0.0-0.1 [facility] Comment on above: Performed By: #### C BC #### [facility] [address] [place] [address] Dr. Babar Marks Basophils/100 WBC (Bld) 0.8 % Normal 0.2-2.0 [facility] Comment on above: Performed By: #### C BC #### [facility] [address] [place] [address] Dr. Babar Marks EO # 0.1 103/ul Normal 0.0-0.7 [facility] Comment on above: Performed By: #### C BC #### [facility] [address] [place] [address] Dr. Babar Marks Eosinophils/100 WBC (Bld) 1.4 % Normal 0.9-7.0 [facility] Comment on above: Performed By: #### C BC #### [facility] [address] [place] [address] Dr. Babar Marks Erythrocyte distribution width (RBC) [Ratio] 13.7 % Normal 11.0-15.0 [facility] Comment on above: Performed By: #### C BC #### [facility] [address] [place] [address] Dr. Babar Marks Hematocrit (Bld) [Volume fraction] 36.9 % Normal 36.0-48.0 [facility] Comment on above: Performed By: #### C BC #### [facility] [address] [place] [address] Dr. Babar Marks Hemoglobin (Bld) [Mass/Vol] 12.4 g/dL Normal 12.0-16.0 [facility] Comment on above: Performed By: #### C BC #### [facility] [address] [place] [address] Dr. Babar Marks IG # 0.03 10e3/ul Normal 0.00-0.03 [facility] Comment on above: Performed By: #### C BC #### [facility] [address] [place] [address] Dr. Babar Marks IG % 0.3 % Normal 0.0-0.5 [facility] Comment on above: Performed By: #### C BC #### [facility] [address] [place] [address] Dr. Babar Marks LYMPH # 1.7 103/ul Normal 1.2-3.8 [facility] Comment on above: Performed By: #### C BC #### [facility] [address] [place] [address] Dr. Babar Marks Lymphocytes/100 WBC (Bld) 18.1 % Critically low 20.5-60.0 [facility] Comment on above: Performed By: #### C BC #### [facility] [address] [place] [address] Dr. Babar Marks MANUAL DIFF REQ NO Normal [facility] Comment on above: Performed By: #### C BC #### [facility] [address] [place] [address] Dr. Babar Marks MCH (RBC) [Entitic mass] 29.5 pg Normal 26.7-34.0 [facility] Comment on above: Performed By: #### C BC #### [facility] [address] [place] [address] Dr. Babar Marks MCHC (RBC) [Mass/Vol] 33.6 g/dL Normal 29.9-35.2 [facility] Comment on above: Performed By: #### C BC #### [facility] [address] [place] [address] Dr. Babar Marks MCV (RBC) [Entitic vol] 87.9 fL Normal 81.0-99.0 [facility] Comment on above: Performed By: #### C BC #### [facility] [address] [place] [address] Dr. Babar Marks MONO # 0.6 103/ul Normal 0.3-0.8 [facility] Comment on above: Performed By: #### C BC #### [facility] [address] [place] [address] Dr. Babar Marks Monocytes/100 WBC (Bld) 6.5 % Normal 1.7-12.0 [facility] Comment on above: Performed By: #### C BC #### [facility] [address] [place] [address] Dr. Babar Marks NEUT # 6.7 103/ul Critically high 1.4-6.5 [facility] Comment on above: Performed By: #### C BC #### [facility] [address] [place] [address] Dr. Babar Marks Neutrophils/100 WBC (Bld) 72.9 % Normal 43.0-75.0 [facility] Comment on above: Performed By: #### C BC #### [facility] [address] [place] [address] Dr. Babar Marks Platelet mean volume (Bld) [Entitic vol] 10.1 fL Normal 9.5-13.5 [facility] Comment on above: Performed By: #### C BC #### [facility] [address] [place] [address] Dr. Babar Marks PLT 393 103/ul Normal 150-450 [facility] Comment on above: Performed By: #### C BC #### [facility] [address] [place] [address] Dr. Babar Marks RBC 4.20 106/ul Normal 4.20-5.40 [facility] Comment on above: Performed By: #### C BC #### [facility] [address] [place] [address] Dr. Babar Marks WBC 9.2 103/ul Normal 4.0-11.0 [facility] Comment on above: Performed By: #### C BC #### [facility] [address] [place] [address] Dr. Babar Marks ER URINE PROFILEon 3 Bilirubin Ql (U) Negative Normal NEGATIVE [facility] Comment on above: Performed By: #### E RUR #### [facility] [address] [place] [address] Dr. Babar Marks Clarity (U) CLEAR Normal CLEAR [facility] Comment on above: Performed By: #### E RUR #### [facility] [address] [place] [address] Dr. Babar Marks Color (U) LT. YELLOW Normal YELLOW [facility] Comment on above: Performed By: #### E RUR #### [facility] [address] [place] [address] Dr. Babar Marks ERUAHD A micrscopic examina tion will be performed if indicated. Normal [facility] Comment on above: Performed By: #### E RUR #### [facility] [address] [place] [address] Dr. Babar Marks Glucose Ql (U) Negative Normal NEGATIVE [facility] Comment on above: Performed By: #### E RUR #### [facility] [address] [place] [address] Dr. Babar Marks Hemoglobin Ql (U) Negative Normal NEGATIVE [facility] Comment on above: Performed By: #### E RUR #### [facility] [address] [place] [address] Dr. Babar Marks Ketones Ql (U) Negative Normal NEGATIVE [facility] Comment on above: Performed By: #### E RUR #### [facility] [address] [place] [address] Dr. Babar Marks LEUKOCYTES Negative Normal NEGATIVE [facility] Comment on above: Performed By: #### E RUR #### [facility] [address] [place] [address] Dr. Babar Marks Nitrite Ql (U) Negative Normal NEGATIVE [facility] Comment on above: Performed By: #### E RUR #### [facility] [address] [place] [address] Dr. Babar Marks pH (U) 6.5 [pH] Normal 5-9 [facility] Comment on above: Performed By: #### E RUR #### [facility] [address] [place] [address] Dr. Babar Marks SPEC GRAVITY 1.015 Normal 1.005-<=1.0 25 [facility] Comment on above: Performed By: #### E RUR #### [facility] [address] [place] [address] Dr. Babar Marks UA PROTEIN Negative Normal NEGATIVE/ TRACE [facility] Comment on above: Performed By: #### E RUR #### [facility] [address] [place] [address] Dr. Babar Marks UR MICRO IND NOT INDICATED Normal [facility] Comment on above: Performed By: #### E RUR #### [facility] [address] [place] [address] Dr. Babar Marks Urobilinogen Qn (U) 0.2 {Courtney'U}/dL Normal 0.2 - 1. 0 [facility] Comment on above: Performed By: #### E RUR #### [facility] [address] [place] [address] Dr. Babar Marks LIPASEon 07-30-2022 Lipase [Catalytic activity/Vol] 141.0 U/L Normal 73.0-393.0 [facility] Comment on above: Performed By: #### L IPA, CMP #### [facility] [address] [place] [address] Dr. Babar Marks PREG HCG QUALon 07-30-2022 , QUAL Negative Normal NEGATIVE [facility] Comment on above: Performed By: #### C BC #### [facility] [address] [place] [address] Dr. Babar Marks PROF 14(COMP METB)on 023 Albumin [Mass/Vol] 3.3 g/dL Critically low 3.4-5.0 [facility] Comment on above: Performed By: #### C BC #### [facility] [address] [place] [address] Dr. Babar Marks Albumin/Globulin [Mass ratio] 0.8 {ratio} Normal [facility] Comment on above: Performed By: #### C BC #### [facility] [address] [place] [address] Dr. Babar Marks ALP [Catalytic activity/Vol] 44 U/L Critically low 46-116 [facility] Comment on above: Performed By: #### C BC #### [facility] [address] [place] [address] Dr. Babar Marks ALT [Catalytic activity/Vol] 17 U/L Normal 14-59 [facility] Comment on above: Performed By: #### C BC #### [facility] [address] [place] [address] Dr. Babar Marks Anion gap [Moles/Vol] 11.0 mmol/L Normal [facility] Comment on above: Performed By: #### C BC #### [facility] [address] [place] [address] Dr. Babar Marks AST [Catalytic activity/Vol] 13 U/L Critically low 15-37 [facility] Comment on above: Performed By: #### C BC #### [facility] [address] [place] [address] Dr. Babar Marks Bilirubin [Mass/Vol] 0.3 mg/dL Normal 0.2-1.0 [facility] Comment on above: Performed By: #### C BC #### [facility] [address] [address] [address] Babar Marks Calcium [Mass/Vol] 8.6 mg/dL Normal 8.5-10.1 [facility] Comment on above: Performed By: #### C BC #### [facility] [address] [place] [address] Dr. Babar Marks Chloride [Moles/Vol] 107 mmol/L Normal 98-107 [facility] Comment on above: Performed By: #### C BC #### [facility] [address] [place] [address] Dr. Babar Marks CO2 [Moles/Vol] 29.5 mmol/L Normal 21.0-32.0 [facility] Comment on above: Performed By: #### C BC #### [facility] [address] [place] [address] Dr. Babar Marks Creatinine [Mass/Vol] 0.71 mg/dL Normal 0.55-1.02 [facility] Comment on above: Performed By: #### C BC #### [facility] [address] [place] [address] Dr. Babar Marks EGFR-AF PANAMANIAN >60 Normal >=60 [facility] Comment on above: Performed By: #### C BC #### [facility] [address] [place] [address] Dr. Babar Marks EGFR-NON AF PANAMANIAN >60 Normal >=60 [facility] Comment on above: Performed By: #### C BC #### [facility] [address] [place] [address] Dr. Babar Marks Globulin (S) [Mass/Vol] 4.0 g/dL Normal [facility] Comment on above: Performed By: #### C BC #### [facility] [address] [place] [address] Dr. Babar Marks Glucose [Mass/Vol] 81 mg/dL Normal 74-106 [facility] Comment on above: Performed By: #### C BC #### [facility] [address] [address] [address] Babar Marks Potassium [Moles/Vol] 3.5 mmol/L Normal 3.5-5.1 [facility] Comment on above: Performed By: #### C BC #### [facility] [address] [address] [address] Babar Marks Protein [Mass/Vol] 7.3 g/dL Normal 6.4-8.2 [facility] Comment on above: Performed By: #### C BC #### [facility] [address] [address] [address] Babar Marks Sodium [Moles/Vol] 144 mmol/L Normal 136-145 [facility] Comment on above: Performed By: #### C BC #### [facility] [address] [address] [address] Babar Marks Urea nitrogen [Mass/Vol] 14.0 mg/dL Normal 7.0-18.0 [facility] Comment on above: Performed By: #### C BC #### [facility] [address] [address] [address] Babar Marks Urea nitrogen/Creatinine [Mass ratio] 19.7 mg/mg Normal [facility] Comment on above: Performed By: #### C BC #### [facility] [address] [address] [address] Babar Marks XR ABD FLAT UP_PA [...] by: YESENIA ARRIOLA Date: 2022-07-30 18:11 Normal [facility] PAP ACOG PANEL 2: 30 to 65on 03-18-2022 . . Normal [facility] Comment on above: Result Comment: Perf ormed at: WB Performed By: #### [id number] #### [facility] [address] [address] [address] Babar Marks Age Gdln ACOG Testing 30-65 Normal [facility] Comment on above: Performed By: #### [id number] #### [facility] [address] [address] [address] Babar Marks DIAGNOSIS: Comment Normal [facility] Comment on above: Result Comment: NEGA TIVE FOR INTRAEPITHELIAL LESION OR MALIGNANCY. Performed at: WB Performed By: #### [id number] #### [facility] [address] [address] [address] Babar Marks HPV Aptima Positive Abnormal Negative [facility] Comment on above: Result Comment: This nucleic acid amplification test detects fourteen high-risk HPV types (16,18,31,33,35,39,45,51,52,56,58,59,66,68) without differentiation. Performed at: =G Performed By: #### [id number] #### [facility] [address] [address] [address] Babar Marks HPV Genotype 16 Negative Normal Negative [facility] Comment on above: Result Comment: Perf ormed at: =G Performed By: #### [id number] #### [facility] [address] [address] [address] Babar Marks HPV Genotype 18,45 Negative Normal Negative [facility] Comment on above: Result Comment: Perf ormed at: =G Performed By: #### [id number] #### [facility] [address] [place] [address] Dr. Babar Marks Methodology: Comment Normal [facility] Comment on above: Result Comment: This liquid based ThinPrep(R) pap test was screened with the use of an image guided system. Performed at: WB Performed By: #### [id number] #### [facility] [address] [place] [address] Dr. Babar Marks Note: Comment Normal [facility] Comment on above: Result Comment: The Pap smear is a screening test designed to aid in the detection of premalignant and malignant conditions of the uterine cervix. It is not a diagnostic procedure and should not be used as the sole means of detecting cervical cancer. Both false-positive and false-negative reports do occur. . Performed at: WB Performed By: #### [id number] #### [facility] [address] [place] [address] Dr. Babar Marks Performed by: Comment Normal [facility] Comment on above: Result Comment: Marry Billy [employer] Farm Worker (ASCP) Performed at: WB Performed By: #### [id number] #### [facility] [address] [place] [address] Dr. Babar Marks Specimen adequacy: Comment Normal [facility] Comment on above: Result Comment: Sati sfactory for evaluation. Endocervical and/or squamous metaplastic cells (endocervical component) are present. Performed at: WB Performed By: #### [id number] #### [facility] [address] [place] [address] Dr. Babar Marks CHLAMYDIA/GONOCOCCUS JESS (SW AB/URINE/PAPon 03-14-2022 Chlamydia trachomatis, JESS Negative Normal Negative [facility] Comment on above: Performed By: #### C T/NGNA #### [facility] [address] [place] [address] Dr. Babar Marks Neisseria gonorrhoeae, JESS Negative Normal Negative [facility] Comment on above: Performed By: #### C T/NGNA #### [facility] [address] [place] [address] Dr. Babar Marks VAGINITIS/VAGINOSIS DNA PROB Tam 03-14-2022 Kelsey species Negative Normal Negative [facility] Comment on above: Performed By: #### V AGINT #### [facility] [address] [address] [address] Babar Marks Gardnerella vaginalis Negative Normal Negative [facility] Comment on above: Performed By: #### V AGINT #### [facility] [address] [address] [address] Babar Marks Trichomonas vaginalis Negative Normal Negative [facility] Comment on above: Performed By: #### V AGINT #### [facility] [address] [address] [address] Babar Marks XR CHEST 2 Von 11-23-2021 XR CHEST 2 V EXAM: XR CHEST 2 V COMPARISON: 02/06/2017 CLINICAL INDICATION: Cough. FINDINGS: The cardiomediastinal silhouette is within normal limits. No focal consolidation. No pleural effusion. No pneumothorax. IMPRESSION: No radiographic evidence of acute cardiopulmonary abnormality. 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 [facility] Drug Scr, Abuse, Uron 2016 Amphetamine(s),Ur Negative Normal NEG [facility] Comment on above: Result Comment: (Pos itive cutoff 1000 ng/mL) Performed By: #### U AMIC, MARLEEN ####[facility] [address] [place] [address] [id number] Barbiturate(s),Ur Negative Normal NEG [facility] Comment on above: Result Comment: (Pos itive cutoff 200 ng/mL) Performed By: #### U AMIC, MARLEEN ####[facility] [place], [place] [id number] Base excess Negative Normal NEG [facility] Comment on above: Result Comment: (Pos itive cutoff 300 ng/mL) Performed By: #### U AMIC, MARLEEN ####[address] [place] [address] Benzodiazepine(s) Negative Normal NEG [facility] Comment on above: Result Comment: (Pos itive cutoff 200 ng/mL) Performed By: #### U AMICRADHAU ####[address] [place] [address] Cannabinoid(s),Ur Negative Normal NEG [facility] Comment on above: Result Comment: (Pos itive cutoff 50 ng/mL) Performed By: #### U AMIC MARLEEN ####[facility] [address] [address] Interpretive Info Assay provides medic al screening only. The absence of expected drug(s) and/or Normal [facility] Comment on above: Result Comment: meta bolite(s) may indicate diluted or adulterated urine, limitations of testing or timing of collection.Testing for legal purposes should be confirmed by another method. To request confirmation of test result, please call the lab within 7 days of sample submission.[facility] [place] [address] Performed By: #### U AMIRADHA ArroyoU ####[facility] [address] [place] [address] Opiate(s), Ur Positive Abnormal NEG [facility] Comment on above: Result Comment: (Pos itive cutoff 300 ng/mL) Performed By: #### U AMIC MARLEEN ####[facility] [address] [place] [address] Oxycodone, Urine Negative Normal NEG [facility] Comment on above: Result Comment: (Pos itive cutoff 100 ng/mL) Performed By: #### U AMICRADHAU ####[address] [place] [address] Phencyclidine, Ur Negative Normal NEG [facility] Comment on above: Result Comment: (Pos itive cutoff 25 ng/mL) Performed By: #### U AMIC, MARLEEN ####[facility] [address] [place] [address] Urine, methadone presence Negative Normal NEG [facility] Comment on above: Result Comment: (Pos itive cutoff 300 ng/mL) Performed By: #### U AMIC, MARLEEN ####[facility] [address] [place] [address] Buprenorphrine, Ur NOT REPORTED Normal NEG [facility] Comment on above: Performed By: #### U AMIC, MARLEEN ####[facility] [address] [place] [address] MDMA, Urine NOT REPORTED Normal NEG [facility] Comment on above: Performed By: #### U AMIC, MARLEEN ####[facility] [address] [place] [address] Methamphetamine, Ur NOT REPORTED Normal NEG [facility] Comment on above: Performed By: #### U AMIC, MARLEEN ####[facility] [address] [place] [address] Propoxyphene,Urine NOT REPORTED Normal NEG [facility] Comment on above: Performed By: #### U AMIC, MARLEEN ####[facility] [address] [place] [address] Urine, tricyclic antidepressants NOT REPORTED Normal NEG [facility] Comment on above: Performed By: #### U AMIC, MARLEEN ####[facility] [address] [place] [address] ED Noteon 02-07-2017 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 [facility] 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 [facility] ED Provider Noteon 7 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 [facility] Ethanol Alcoholon 02-07-2017 Ethanol mg/dL Normal <10 [facility] Comment on above: Performed By: #### A LCB ####[facility] [place] [address] Ethanol percent <0.010 Normal [facility] Comment on above: Result Comment: [facility] [address] [place] [address] Performed By: #### A LCB ####[address] [place] [address] History and Physicalon 02-07 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 URINE CULTURE REFLEXED Normal [facility] Comment on above: Performed By: #### P T/INR, PTT ####[address] [place] [place] [address] Urine, crystals in sediment NONE SEEN Normal NONE SEEN [facility] Comment on above: Performed By: #### P T/INR, PTT ####[address] [place] [address] Urine, bacteria in sediment Negative Normal [facility] Comment on above: Performed By: #### P T/INR, PTT ####[address] [place] [address] Urine, mucus presence in sediment Negative Normal NEGATIVE [facility] Comment on above: Performed By: #### P T/INR, PTT ####[address] [place] [address] Urine, casts in sediment NONE SEEN Normal NONE SEEN [facility] Comment on above: Performed By: #### P T/INR, PTT ####[address] [place] [address] Urine, epithelial cells in sediment Negative Normal NEGATIVE [facility] Comment on above: Performed By: #### P T/INR, PTT ####[address] [place] [address] Erythrocytes (RBC) 0-4/HPF Normal NONE SEEN [facility] Comment on above: Performed By: #### P T/INR, PTT ####[address] [place] [address] WBC (Leukocytes) NONE SEEN Normal NONE SEEN [facility] Comment on above: Performed By: #### P T/INR, PTT ####[address] [place] [address] Urine, leukocyte esterase presence Negative Normal NEGATIVE [facility] Comment on above: Performed By: #### P T/INR, PTT ####[address] [place] [address] Urine, nitrite presence Negative Normal NEGATIVE [facility] Comment on above: Performed By: #### P T/INR, PTT ####[address] [place] [address] Urobilinogen, Dipstick 0.2 Normal 0.2 - 1.0 [facility] Comment on above: Performed By: #### P T/INR, PTT ####[address] [place] [address] Protein, Qual Negative Normal NEGATIVE [facility] Comment on above: Performed By: #### P T/INR, PTT ####[address] [place] [address] Urine, pH 7.0 [pH] Normal 5.0 - 9.0 [facility] Comment on above: Performed By: #### P T/INR, PTT ####[address] [place] [address] Blood, Dipstick TRACE Abnormal NEGATIVE [facility] Comment on above: Performed By: #### P T/INR, PTT ####[address] [place] [address] Urine, specific gravity 1.015 Normal 1.005 - 1.030 [facility] Comment on above: Performed By: #### P T/INR, PTT ####[address] [place] [address] Ketone, Dipstick Negative Normal NEGATIVE [facility] Comment on above: Performed By: #### P T/INR, PTT ####[address] [place] [address] Bilirubin (direct) Negative Normal NEGATIVE [facility] Comment on above: Performed By: #### P T/INR, PTT ####[address] [place] [address] Glucose mass conc Negative Normal NEGATIVE [facility] Comment on above: Performed By: #### P T/INR, PTT ####[address] [place] [address] Urine, character CLEAR Normal CLEAR [facility] Comment on above: Performed By: #### P T/INR, PTT ####[address] [place] [address] Urine, color YELLOW Normal [facility] Comment on above: Performed By: #### P T/INR, PTT ####[address] [place] [address] Urinalysis w/ Microon 2016 ----- Normal [facility] Comment on above: Performed By: #### U AMIC, MARLEEN ####[facility] [place] [address] Acetaminophen mass conc Negative Normal NEG [facility] Comment on above: Performed By: #### U AMIC, MARLEEN ####[address] [place] [address] Bilirubin (direct) Negative Normal NEG [facility] Comment on above: Performed By: #### U AMIC, MARLEEN ####[facility] [address] [place] [address] Hemoglobin mass conc (Bld) LARGE Abnormal NEG [facility] Comment on above: Performed By: #### U AMIC, MARLEEN ####[address] [address] Nitrite,Ur Negative Normal NEG [facility] Comment on above: Performed By: #### U AMIC, MARLEEN ####[address] [address] Turbidity CLEAR Normal CLEAR [facility] Comment on above: Performed By: #### U AMIC, MARLEEN ####[address] [address] Urine WBC's 0 TO 2 Normal 0-5 [facility] Comment on above: Performed By: #### U AMIC, MARLEEN ####[address] [address] Urine, casts in sediment 0 TO 2 HYALINE Normal 0-8 [facility] Comment on above: Result Comment: Refe rence range defined for non-centrifuged specimen. Performed By: #### U AMIC, MARLEEN ####[address] [place] [address] Urine, color YELLOW Normal YEL [facility] Comment on above: Performed By: #### U AMIC, MARLEEN ####[address] [place] [address] Urine, epithelial cells in sediment 0 TO 2 Normal 0-5 [facility] Comment on above: Result Comment: [address] [place] [address] Performed By: #### U AMIC, MARLEEN ####[address] [address] Urine, erythrocytes 2 TO 5 Normal 0-4 [facility] Comment on above: Result Comment: Refe rence range defined for non-centrifuged specimen. Performed By: #### U AMIC, MARLEEN ####[address] [address] Urine, glucose presence Negative Normal NEG [facility] Comment on above: Performed By: #### U AMIC, MARLEEN ####[address] [address] Urine, leukocyte esterase presence Negative Normal NEG [facility] Comment on above: Performed By: #### U AMIC, MARLEEN ####[facility] [address] [place] [address] Urine, pH 6.0 [pH] Normal 5.0-8.0 [facility] Comment on above: Performed By: #### U AMIC, MARLEEN ####[address] [address] Urine, protein presence Negative Normal NEG [facility] Comment on above: Performed By: #### U AMIC, MARLEEN ####[facility] [address] [place] [address] Urine, specific gravity 1.013 Normal 1.005-1.030 [facility] Comment on above: Performed By: #### U AMIC, MARLEEN ####[address] [address] Urobilinogen,Ur Normal Normal NORM [facility] Comment on above: Performed By: #### U AMIC, MARLEEN ####[facility] [address] [place] [address] Epithelial, Renal NOT REPORTED Normal 0 [facility] Comment on above: Performed By: #### U AMIC, MARLEEN ####[facility] [address] [place] [address] Mucus Strands NOT REPORTED Normal NONE [facility] Comment on above: Performed By: #### U AMIC, MARLEEN ####[facility] [address] [place] [address] Other Observations NOT REPORTED Normal NREQ [facility] Comment on above: Performed By: #### U AMIC, MARLEEN ####[facility] [address] [place] [address] Trichomonas NOT REPORTED Normal NONE [facility] Comment on above: Performed By: #### U AMIC, MARLEEN ####[facility] [address] [place] [address] Urine, amorphous sediment presence in sediment NOT REPORTED Normal NONE [facility] Comment on above: Performed By: #### U AMIC, MARLEEN ####[facility] [address] [place] [address] Urine, bacteria in sediment NOT REPORTED Normal NONE [facility] Comment on above: Performed By: #### U AMIC, MARLEEN ####[facility] [address] [place] [address] Urine, crystals in sediment NOT REPORTED Normal NONE [facility] Comment on above: Performed By: #### U AMIC, MARLEEN ####[facility] [address] [place] [address] Urine, yeast presence in sediment NOT REPORTED Normal NONE [facility] Comment on above: Performed By: #### U AMIC, MARLEEN ####[facility] [place] [address] XR CHEST PA OR AP (1 VIEW)on [...] injury.Report electronically signed by: Dr. Chilo Fernandez [facility] XR SHOULDER RTon 02-07-2017 XR SHOULDER [...] electronically signed by: Dr. Chilo Fernandez Normal [facility] APTTon 02-06-2017 aPTT 29.1 s Normal 23.0 - 37.0 [facility] Comment on above: Performed By: #### P T/INR, PTT ####[address] [place], [place] 8650351 Basic Metabolic Panelon 01-23 eGFR (non-black) 108.65 Normal [facility] Comment on above: Result Comment: eGFR Interpretation:Normal: Equal to or greater than 60 mL/min/1.73 meters squaredChronic Kidney Disease: Less than 60 mL/min/1.73 meters squaredKidney Failure: Less than 15 mL/min/1.73 meters squared Performed By: #### B MP, LIVER PROFILE ####[address] [place], [place] 7279051 eGFR (non-black) 114.39 Normal [facility] Comment on above: Result Comment: eGFR Interpretation:Normal: Equal to or greater than 60 mL/min/1.73 meters squaredChronic Kidney Disease: Less than 60 mL/min/1.73 meters squaredKidney Failure: Less than 15 mL/min/1.73 meters squared Performed By: #### B MP, LIVER PROFILE ####[address] [place] [address] eGFR (non-black) 108.1 Normal [facility] Comment on above: Result Comment: eGFR Interpretation:Normal: Equal to or greater than 60 mL/min/1.73 meters squaredChronic Kidney Disease: Less than 60 mL/min/1.73 meters squaredKidney Failure: Less than 15 mL/min/1.73 meters squared Performed By: #### B MP, LIVER PROFILE ####[address] [place] [address] eGFR (non-black) 81.88 Normal [facility] Comment on above: Result Comment: eGFR Interpretation:Normal: Equal to or greater than 60 mL/min/1.73 meters squaredChronic Kidney Disease: Less than 60 mL/min/1.73 meters squaredKidney Failure: Less than 15 mL/min/1.73 meters squared Performed By: #### B MP, LIVER PROFILE ####[address] [place] [address] eGFR (non-black) 125.60 Normal [facility] Comment on above: Performed By: #### B MP, LIVER PROFILE ####[address] [place] [address] eGFR (non-black) 132.24 Normal [facility] Comment on above: Performed By: #### B MP, LIVER PROFILE ####[address] [place] [address] eGFR (non-black) 124.64 Normal [facility] Comment on above: Performed By: #### B MP, LIVER PROFILE ####[address] [place] [place] [address] eGFR (non-black) 94.39 Normal [facility] Comment on above: Performed By: #### B MP, LIVER PROFILE ####[address] [place] [address] Age 26 year(s) Normal [facility] Comment on above: Performed By: #### B MP, LIVER PROFILE ####[address] [place] [address] Calcium 10.1 mg/dL Normal 8.4 - 10.2 [facility] Comment on above: Performed By: #### B MP, LIVER PROFILE ####[address] [place] [address] Chloride 103 mmol/L Normal 98 - 107 [facility] Comment on above: Performed By: #### B MP, LIVER PROFILE ####[address] [place] [address] CO2 25 mmol/L Normal 22 - 32 [facility] Comment on above: Performed By: #### B MP, LIVER PROFILE ####[address] [place] [address] Creatinine 0.96 mg/dL Normal 0.52 - 1.04 [facility] Comment on above: Performed By: #### B MP, LIVER PROFILE ####[address] [place] [address] Glucose mass conc 126 mg/dL High 65 - 100 [facility] Comment on above: Performed By: #### B MP, LIVER PROFILE ####[address] [place] [address] Potassium molar conc 3.9 mmol/L Normal 3.6 - 5.0 [facility] Comment on above: Performed By: #### B MP, LIVER PROFILE ####[address] [place] [address] Sodium 139 mmol/L Normal 135 - 145 [facility] Comment on above: Performed By: #### B MP, LIVER PROFILE ####[address] [place] [address] Urea nitrogen 20 mg/dL High 7 - 17 [facility] Comment on above: Performed By: #### B MP, LIVER PROFILE ####[address] [place] [address] CBC W Auto Differentialon Abs Neut # 9.0 10 X 3/mm High 1.8 - 7.7 [facility] Comment on above: Performed By: #### C BC Auto Diff ####[address] [place] [address] Basophils/100 WBC Auto (Bld) 1 % High 0 - 1 [facility] Comment on above: Performed By: #### C BC Auto Diff ####[address] [place] [address] Eosinophils 0.1 10 X 3/mm Normal 0.0 - 0.5 [facility] Comment on above: Performed By: #### C BC Auto Diff ####[address] [place] [address] Eosinophils/100 leukocytes 1 % Normal 0 - 5 [facility] Comment on above: Performed By: #### C BC Auto Diff ####[address] [place] [address] Erythrocyte distribution width Auto Ratio (RBC) 15.1 % High 11.5 - 14.5 [facility] Comment on above: Performed By: #### C BC Auto Diff ####[address] [place] [address] Erythrocytes (RBC) 4.28 10 X 6/mm Normal 4.20 - 5.40 [facility] Comment on above: Performed By: #### C BC Auto Diff ####[address] [place] [address] Hematocrit (HCT) 36.3 % Normal 36.0 - 47.0 [facility] Comment on above: Performed By: #### C BC Auto Diff ####[address] [place] [address] Hemoglobin mass conc (Bld) 12.4 g/dL Normal 12.0 - 16.0 [facility] Comment on above: Performed By: #### C BC Auto Diff ####[address] [place] [address] Lymphocytes 2.3 10 X 3/mm Normal 1.0 - 4.0 [facility] Comment on above: Performed By: #### C BC Auto Diff ####[address] [place] [address] Lymphocytes/100 leukocytes 19 % Low 20 - 40 [facility] Comment on above: Performed By: #### C BC Auto Diff ####[address] [place] [address] MCH 29.0 pg Normal 27.0 - 35.0 [facility] Comment on above: Performed By: #### C BC Auto Diff ####[address] [place] [address] MCHC mass conc (RBC) 34.2 g/dL Normal 32.0 - 36.0 [facility] Comment on above: Performed By: #### C BC Auto Diff ####[address] [place] [address] MCV 84.9 fL Normal 80.0 - 100.0 [facility] Comment on above: Performed By: #### C BC Auto Diff ####[address] [place] [address] Monocytes/100 leukocytes 6 % Normal 1 - 15 [facility] Comment on above: Performed By: #### C BC Auto Diff ####[place] [address] [place] [address] Neutrophils/100 WBC Auto (Bld) 74 % High 50 - 70 [facility] Comment on above: Performed By: #### C BC Auto Diff ####[facility] [place] [address] Platelet mean volume (PMV) 8.0 fL Normal 7.5 - 11.5 [facility] Comment on above: Performed By: #### C BC Auto Diff ####[place] [address] [place] [address] Platelets 454 uLx10 High 150 - 450 [facility] Comment on above: Performed By: #### C BC Auto Diff ####[place] [address] [place] [address] WBC (Leukocytes) 12.2 10 X 3/mm High 3.7 - 11.0 [facility] Comment on above: Performed By: #### C BC Auto Diff ####[place] [address] [place] [address] CT BRAIN WOon 02-06-2017 Thyroid stimulating hormone [...] electronically signed by: Dr. Zaire Babcock Normal [facility] CT CERVICAL SPINE WOon 02-06 [...] indicated.Report electronically signed by: Dr. Mahamed King [facility] CT SINUS/FACIAL WOon 017 CT SINUS/FACIAL [...] body.Report electronically signed by: Dr. Hal Ayoub [facility] Hepatic Function Panelon Alanine aminotransferase (ALT) 30 U/L Normal 7 - 52 [facility] Comment on above: Performed By: #### B MP, LIVER PROFILE ####[facility] [place] [id number] Albumin 3.8 g/dL Normal 3.5 - 5.0 [facility] Comment on above: Performed By: #### B MP, LIVER PROFILE ####[place] [address] [place] [address] Alkaline phosphatase (ALP) 63 U/L Normal 38 - 126 [facility] Comment on above: Performed By: #### B MP, LIVER PROFILE ####[place] [address] [place] [address] Aspartate aminotransferase (AST) 22 U/L Normal 14 - 36 [facility] Comment on above: Performed By: #### B MP, LIVER PROFILE ####[place] [address] [place] [address] Bilirubin (direct) 0.0 mg/dL Normal 0.0 - 0.2 [facility] Comment on above: Performed By: #### B MP, LIVER PROFILE ####[place] [address] [place] [address] Bilirubin (total) 0.8 mg/dL Normal 0.2 - 1.3 [facility] Comment on above: Performed By: #### B MP, LIVER PROFILE ####[place] [address] [place] [address] Protein 6.9 g/dL Normal 6.3 - 8.2 [facility] Comment on above: Performed By: #### B MP, LIVER PROFILE ####[place] [address] [place] [address] PT/INRon 02-06-2017 INR Coag RelTime (Bld) See Comments Normal [facility] Comment on above: Result Comment: [...] 2.5-3.5 Performed By: #### P T/INR, PTT ####[place] [address] [place] [address] INR Coag RelTime (PPP) 0.94 Normal 0.90 - 1.10 [facility] Comment on above: Performed By: #### P T/INR, PTT ####[address] [place] [address] Prothrombin time (PT) Coag time (PPP) 12.6 s Normal [facility] Comment on above: Performed By: #### P T/INR, PTT ####[address] [place] [address] Troponin I, Extra Sensitiveo n 02-06-2017 Troponin I.cardiac mass conc ng/mL Normal 0.000 - 0.034 [facility] Comment on above: Result Comment: Limi t of Detection: <0.012 ng/mLAt Risk of Myocardial Damage: 0.012-0.034 ng/mLProbable Myocardial Damage: >0.034 ng/mL Performed By: #### T ROPONIN I ####[address] [place] [address] hCG, Qualitative-Serumon Internal Control ACCEPTABLE Normal [facility] Comment on above: Performed By: #### H CG,QUAL SERUM ####[address] [place] [address] hCG, Qualitative-Serum Negative Normal NEGATIVE [facility] Comment on above: Performed By: #### H CG,QUAL SERUM ####[address] [place] [address] Vital Signs Date Time Vital Sign Value Performing Clinician Facility 01-09-2025 13:45-0400 Body mass index (BMI) [Ratio] 34.11 kg/m2 Eric Elayne DO Work Phone: [facility] 01-09-2025 13:45-0400 Body weight 92.99 kg Eric Elayne DO Work Phone: [facility] 01-09-2025 13:45-0400 Diastolic blood pressure 78 mm[Hg] Eric Elayne DO Work Phone: [facility] 01-09-2025 13:45-0400 Systolic blood pressure 118 mm[Hg] Eric Elayne DO Work Phone: [facility] 12-25-2024 14:28-0400 Body mass index (BMI) [Ratio] 33.91 kg/m2 Eric Elayne DO Work Phone: [facility] 12-25-2024 14:28-0400 Body weight 92.42 kg Eric Elayne DO Work Phone: [facility] 12-25-2024 14:28-0400 Diastolic blood pressure 80 mm[Hg] Eric Elayne DO Work Phone: [facility] 12-25-2024 14:28-0400 Systolic blood pressure 110 mm[Hg] Eric Elayne DO Work Phone: [facility] 12-13-2024 14:59-0400 Body mass index (BMI) [Ratio] 34.78 kg/m2 Eric Elayne DO Work Phone: [facility] 12-13-2024 14:59-0400 Body weight 94.8 kg Eric Elayne DO Work Phone: [facility] 12-13-2024 14:59-0400 Diastolic blood pressure 78 mm[Hg] Eric Elayne DO Work Phone: [facility] 12-13-2024 14:59-0400 Systolic blood pressure 120 mm[Hg] Eric Elayne DO Work Phone: [facility] 11-28-2024 14:25-0400 Body mass index (BMI) [Ratio] 34.61 kg/m2 Eric Elayne DO Work Phone: [facility] 11-28-2024 14:25-0400 Body weight 94.35 kg Eric Elayne DO Work Phone: [facility] 11-28-2024 14:25-0400 Diastolic blood pressure 76 mm[Hg] Eric Elayne DO Work Phone: [facility] 11-28-2024 14:25-0400 Systolic blood pressure 120 mm[Hg] Eric Elayne DO Work Phone: [facility] 11-07-2024 13:37-0400 Body mass index (BMI) [Ratio] 35.11 kg/m2 Eric Elayne DO Work Phone: [facility] 11-07-2024 13:37-0400 Body weight 95.71 kg Eric Elayne DO Work Phone: [facility] 11-07-2024 13:37-0400 Diastolic blood pressure 72 mm[Hg] Eric Elayne DO Work Phone: [facility] 11-07-2024 13:37-0400 Systolic blood pressure 122 mm[Hg] Eric Elayne DO Work Phone: [facility] 09-18-2024 13:47-0500 Body mass index (BMI) [Ratio] 31.92 kg/m2 Loraine OLIVO Work Phone: [facility] 09-18-2024 13:47-0500 Body weight 87 kg Loraine OLIVO Work Phone: [facility] 09-18-2024 13:47-0500 Diastolic blood pressure 76 mm[Hg] Loraine OLIVO Work Phone: [facility] 09-18-2024 13:47-0500 Systolic blood pressure 116 mm[Hg] Loraine OLIVO Work Phone: [facility] 09-08-2024 15:52-0500 Body height 165.1 cm [facility] 09-08-2024 15:52-0500 Body mass index (BMI) [Ratio] 58.6 kg/m2 [facility] 09-08-2024 15:52-0500 Body temperature 98.9 [degF] [facility] 09-08-2024 15:52-0500 Body weight 160 kg [facility] 09-08-2024 15:52-0500 Diastolic blood pressure 78 mm[Hg] [facility] 09-08-2024 15:52-0500 Heart rate 105 /min [facility] 09-08-2024 15:52-0500 Respiratory rate 18 /min [facility] 09-08-2024 15:52-0500 SaO2% (BldA) [Mass fraction] 97 % [facility] 09-08-2024 15:52-0500 Systolic blood pressure 120 mm[Hg] [facility] 08-21-2024 13:18-0500 Body mass index (BMI) [Ratio] 31.12 kg/m2 Eric Elayne DO Work Phone: [facility] 08-21-2024 13:18-0500 Body weight 84.82 kg Eric Elayne DO Work Phone: [facility] 08-21-2024 13:18-0500 Diastolic blood pressure 70 mm[Hg] Eric Elayne DO Work Phone: [facility] 08-21-2024 13:18-0500 Systolic blood pressure 120 mm[Hg] Eric Elayne DO Work Phone: [facility] 07-21-2024 11:10-0500 Body mass index (BMI) [Ratio] 29.45 kg/m2 [facility] 07-21-2024 11:10-0500 Body weight 80.29 kg Nom Nurse [facility] 07-21-2024 11:10-0500 Diastolic blood pressure 76 mm[Hg] [facility] Nurse [facility] 07-21-2024 11:10-0500 Systolic blood pressure 124 mm[Hg] [facility] Nurse [facility] 06-08-2024 10:32-0500 Body height 165.1 cm [facility] 06-08-2024 10:32-0500 Body mass index (BMI) [Ratio] 29.1 kg/m2 [facility] 06-08-2024 10:32-0500 Body temperature 97.5 [degF] [facility] 06-08-2024 10:32-0500 Body weight 79.37 kg [facility] 06-08-2024 10:32-0500 Diastolic blood pressure 89 mm[Hg] [facility] 06-08-2024 10:32-0500 Heart rate 93 /min [facility] 06-08-2024 10:32-0500 Respiratory rate 18 /min [facility] 06-08-2024 10:32-0500 SaO2% (BldA) [Mass fraction] 98 % [facility] 06-08-2024 10:32-0500 Systolic blood pressure 130 mm[Hg] [facility] 04-21-2024 13:40-0400 Body height 165.1 cm [facility] 04-21-2024 13:40-0400 Body mass index (BMI) [Ratio] 28.1 kg/m2 [facility] 04-21-2024 13:40-0400 Body temperature 99.4 [degF] [facility] 04-21-2024 13:40-0400 Body weight 76.82 kg [facility] 04-21-2024 13:40-0400 Diastolic blood pressure 84 mm[Hg] [facility] 04-21-2024 13:40-0400 Heart rate 85 /min [facility] 04-21-2024 13:40-0400 Respiratory rate 18 /min [facility] 04-21-2024 13:40-0400 SaO2% (BldA) [Mass fraction] 99 % [facility] 04-21-2024 13:40-0400 Systolic blood pressure 126 mm[Hg] [facility] 12-22-2023 18:07-0400 Body height 165.1 cm [facility] 12-22-2023 18:07-0400 Body mass index (BMI) [Ratio] 27.8 kg/m2 [facility] 12-22-2023 18:07-0400 Body temperature 98.7 [degF] [facility] 12-22-2023 18:07-0400 Body weight 75.74 kg [facility] 12-22-2023 18:07-0400 Heart rate 84 /min [facility] 12-22-2023 18:07-0400 Respiratory rate 18 /min [facility] 12-22-2023 18:07-0400 SaO2% (BldA) [Mass fraction] 99 % [facility] Encounters Encounter Date Encounter Type Care Provider Facility Start: 01-09-2025 End: 01-09-2025 Bamboo flowsheet Eric Elayne DO Work Phone: [facility] Start: 01-09-2025 End: 01-09-2025 Bamboo flowsheet Eric Elayne DO Work Phone: [facility] Start: 01-09-2025 End: 01-09-2025 Office outpatient visit 15 minutes Eric Elayne DO Work Phone: [facility] Comment on above: Third trimester preg chester ([facility]); 34 weeks gestation of ([facility]); H/O pre-eclampsia in prior , currently ([facility]); Diet controlled gestational diabetes mellitus (GDM), antepartum ([facility]) Start: 01-03-2025 End: 01-03-2025 Clinisync Result Encounter [...] Start: 09-18-2024 End: 09-18-2024 Bamboo flowsheet Loraine Hillman PA Work Phone: [facility] Start: 09-18-2024 [...] Not Available Start: 09-08-2024 End: 09-08-2024 ambulatory [facility] Work Phone: Start: 09-08-2024 End: 09-08-2024 Patient encounter procedure [facility] Physician [facility] Loc Work Phone: Start: [...] GA: 10w0d Start: 06-08-2024 End: 06-08-2024 ambulatory [facility] Work Phone: Start: 06-08-2024 End: 06-08-2024 Patient encounter procedure [facility] Physician [facility] Loc Work Phone: Start: 04-21-2024 End: 04-21-2024 ambulatory [facility] Work Phone: Start: 04-21-2024 End: 04-21-2024 Patient encounter procedure [facility] Physician [facility] Loc Work Phone: Start: 12-22-2023 End: 12-22-2023 ambulatory [facility] Work Phone: Start: 12-22-2023 End: 12-22-2023 Patient encounter procedure [facility] Physician [facility] Loc Work Phone: Start: 12-01-2022 ambulatory Facility:[facility] Start: 08-24-2022 End: 08-25-[address] MECHE LE Facility:[facility] Start: 08-19-2022 End: 08-19-[address] ERIC HOLLY Facility:[facility] Start: 07-30-2022 End: 07-30-2022 ambulatory LEANDRO VERDUZCO Facility:[facility] Start: 03-11-2022 End: 03-11-[address] ERIC HOLLY Facility:[facility] Start: 11-23-2021 End: 11-23-2021 ambulatory LEANDRO VERDUZCO Facility:[facility] Start: 02-07-2017 End: 02-07-[address] [facility] Start: 02-06-2017 End: 02-07-2017 Emergency department patient visit IBRAHIMA WARE Facility:[facility] Procedures Date Procedure Procedure Detail Performing Clinician Start: 01-09-2025 Urnls dip stick/tabl et rgnt non-auto w/o micrscp Eric Elayne DO Work Phone: Start: 01-03-2025 US OB BPP W NON-STRESS [...] Work Phone: Start: 11-16-2024 [facility] (CLEAN/CATCH) EMERGENCY MANAGEMENT PROGRAM SPECIALIST/MICRO IF IND. Eric Elayne DO Work Phone: [...] SURGERY ALTA GOODRICH Start: 02-07-2017 NURSING COMMUNICATION Ashley GOODRICH Start: 02-07-2017 DISCHARGE PATIENT ALTA GOODRICH [...] Screening for malign ant neoplasm of cervix [facility] Start: 03-26-2025 Influenza vaccination Influenz a Vaccine (Season Ended) [facility] Start: 01-22-2025 End: 01-22-2025 Patient encounter procedure 01/22/2025 1:30 PM EDT Routine [facility] [address] [place] [id number] Eric Holly, DO [address] [place] [address] [facility] Start: 01-09-2025 End: 01-09-2025 Patient encounter procedure 01/09/2025 1:40 PM EDT Routine [facility] [address] [place] [id number] Eric Holly, DO [address] [place] [address] [facility] Start: 12-25-2024 End: 12-25-2024 Patient encounter procedure 12/25/2024 2:00 PM EDT Routine [facility] [address] [place] [id number] Eric Holly, DO [address] [place] [address] [facility] Start: 12-13-2024 End: 12-13-2024 Patient encounter procedure [facility] Comment on above: Arrived Start: 12-13-2024 End: 06-15-2025 US biophysical profile w non stress test US biophysical profile w non stress test Imaging Routine Gestational diabetes mellitus (GDM), antepartum, gestational diabetes method of control unspecified Expected: 12/13/2024 (Approximate), Expires: 06/15/2025 [facility] Comment on above: Expected: 12/13/2024 (Approximate), Expires: 06/15/2025 Start: 12-13-2024 End: 04-15-2025 US for US OB follow up transabdominal approach Imaging Routine Gestational diabetes mellitus (GDM), antepartum, gestational diabetes method of control unspecified Expected: 12/13/2024, Expires: 04/15/2025 [facility] Work Phone: Comment on above: Expected: 12/13/2024 , Expires: 04/15/2025 Start: 11-28-2024 End: 11-28-2024 Patient encounter procedure 11/28/2024 1:50 PM EDT Routine [facility] [address] [place] [id number] Eric Holly, [address] [place] [address] [facility] Start: 11-07-2024 End: 11-07-2025 CBC panel - Blood by Automated count CBC Lab Routine Diabetes mellitus screening Expected: 11/07/2024 (Approximate), Expires: 11/07/2025 [facility] Work Phone: Comment on above: Expected: 11/07/2024 (Approximate), Expires: 11/07/2025 Start: 11-07-2024 End: 11-07-2025 Measurement of glucose 1 hour after glucose challenge for glucose tolerance test Glucose tolerance, 1 hour Lab Routine Diabetes mellitus screening Expected: 11/07/2024 (Approximate), Expires: 11/07/2025 [facility] Comment on above: Expected: 11/07/2024 (Approximate), Expires: 11/07/2025 Start: 11-07-2024 End: 11-07-2024 Patient encounter procedure 11/07/2024 1:20 PM EDT Routine [facility] [address] [place] [address] Eric Holly, DO [address] [place] [address] [facility] Start: 10-16-2024 End: 10-16-2024 Patient encounter procedure 10/16/2024 2:20 PM EDT Routine [facility] [address] [place] [phone] Eric Holly, DO [address] [place] [address] [facility] Start: 09-18-2024 End: 03-18-2025 Alpha fetoprotein, maternal Alpha fetoprotein, maternal Lab Routine Second trimester 18 weeks gestation of Expected: 09/18/2024 (Approximate), Expires: 03/18/2025 [facility] Comment on above: Expected: 09/18/2024 (Approximate), Expires: 03/18/2025 Start: 09-18-2024 End: 09-18-2025 US for US OB 14+ weeks anatomy scan Imaging Routine Screening, , for anatomic survey Expected: 09/18/2024, Expires: 09/18/2025 [facility] Comment on above: Expected: 09/18/2024 [...] gestational age Expected: 07/21/2024 (Approximate), Expires: 07/21/2025 [facility] Comment on above: Expected: 07/21/2024 (Approximate), Expires: 07/21/2025 Start: 07-21-2024 End: 07-21-2025 Blood type and Indirect antibody screen panel - Blood Type and screen Lab Routine Missed menses , unspecified gestational age Expected: 07/21/2024 (Approximate), Expires: 07/21/2025 [facility] Work Phone: Comment on above: Expected: 07/21/2024 (Approximate), Expires: 07/21/2025 Start: 07-21-2024 End: 07-21-2025 Drugs of abuse panel - Urine by Screen method Rapid drug screen, urine Lab Routine , unspecified gestational age Encounter for supervision of normal first in first trimester Expected: 07/21/2024 (Approximate), Expires: 07/21/2025 [facility] Comment on above: Expected: 07/21/2024 (Approximate), Expires: 07/21/2025 Start: 07-21-2024 End: 07-21-2025 US Pelvis transvaginal US OB transvaginal Imaging Routine Missed menses Expected: 07/21/2024 (Approximate), Expires: 07/21/2025 [facility] Comment on above: Expected: 07/21/2024 (Approximate), Expires: 07/21/2025 Bacteria identified in Urine by Culture Urine culture Microbiology Routine Missed menses Ordered: 07/21/2024 [facility] Comment on above: Ordered: 07/21/2024 CBC W Auto Different ial panel - Blood CBC and differential Lab Routine Missed menses , unspecified gestational age Ordered: 07/21/2024 [facility] Comment on above: Ordered: 07/21/2024 CHLAMYDIA TRACHOMATI S (GENITO/STI) CHLAMYDIA TRACHOMATIS (GENITO/STI) Lab Routine STD exposure Ordered: 09/18/2024 [facility] Comment on above: Ordered: 09/18/2024 Cytology Cervical or vaginal smear or scraping study Pap Smear Pathology and Cytology Routine Well woman exam with routine gynecological exam Ordered: 09/18/2024 [facility] Comment on above: Ordered: 09/18/2024 Hemoglobin A1c/Hemoglobin.total in Blood Hemoglobin A1c Lab Routine Missed menses , unspecified gestational age Ordered: 07/21/2024 [facility] Comment on above: Ordered: 07/21/2024 Hepatitis B virus surface Ag [Presence] in Serum or Plasma by Immunoassay Hepatitis B surface antigen Lab Routine Missed menses , unspecified gestational age Ordered: 07/21/2024 [facility] Comment on above: Ordered: 07/21/2024 Hepatitis C virus Ab [Presence] in Serum or Plasma by Immunoassay Hepatitis C antibody Lab Routine Missed menses , unspecified gestational age Ordered: 07/21/2024 [facility] Comment on above: Ordered: 07/21/2024 HIV-1/HIV-2 antigen/antibody combination immunoassay HIV-1 and HIV-2 antibodies Lab Routine Missed menses , unspecified gestational age Ordered: 07/21/2024 [facility] Comment on above: Ordered: 07/21/2024 Human papilloma viru s DNA [Presence] in Unspecified specimen by Probe with amplification HPV DNA probe, amplified Microbiology Routine Well woman exam with routine gynecological exam Ordered: 09/18/2024 [facility] Comment on above: Ordered: 09/18/2024 Neisseria gonorrhoea e DNA [Presence] in Unspecified specimen by JESS with probe detection Neisseria gonorrhea DNA probe, direct Lab Routine STD exposure Ordered: 09/18/2024 [facility] Comment on above: Ordered: 09/18/2024 Reagin Ab [Presence] in Serum by RPR RPR Lab Routine Missed menses , unspecified gestational age Ordered: 07/21/2024 [facility] Comment on above: Ordered: 07/21/2024 Rubella antibody, IgG Rubella an tibody, IgG Lab Routine Missed menses , unspecified gestational age Ordered: 07/21/2024 [facility] Comment on above: Ordered: 07/21/2024 SURESWAB(R) ADVANCED VAGINITIS PLUS, TMA SURESWAB(R) ADVANCED VAGINITIS PLUS, TMA Pathology and Cytology Routine Vaginal discharge Ordered: 09/18/2024 [facility] Work Phone: Comment on above: Ordered: 09/18/2024 Payers Date Payer Category Payer Medicaid [facility] [id number] 2022 Medicaid [id number] 2019 Unknown [id number] 2017 Unknown 2014 Unknown [id number] 1990 Unknown [id number] [id number] 1990 Unknown [id number] [id number] 1990 Unknown [id number] [id number] 1990 Unknown [id number] [id number] 1990 Unknown [id number] [id number] 1990 Unknown [id number] [id number] 1990 Unknown [id number] [id number] 1990 Unknown [id number] [id number] 1990 Unknown [id number] [id number] 1990 Unknown [id number] [id number] 1990 Unknown [id number] [id number] 1990 Unknown [id number] [id number] 1990 Unknown [id number] [id number] 1990 Unknown [id number] 1959 Unknown [id number] Unknown [facility] [id number] Social History Date Type Detail Facility Start: 03-31-2023 End: 08-11-2023 Tobacco smoking status NHIS Never smoked tobacco (finding) [facility] Start: 1990 Sex Assigned At Female F [facility] Start: 06-08-2024 End: 09-08-2024 Sex Female (finding) [facility] Start: 03-31-2023 Tobacco use and exposure Smokeless tobacco non-user [facility] Start: 07-21-2024 End: 01-09-2025 Alcoholic beverage intake Current drinker of alcohol (finding) [facility] Start: 07-12-2024 History of Social function [facility] Start: 07-12-2024 Tobacco use panel [facility] Start: 03-31-2023 Alcohol Comment Occasional alcohol u se [facility] Start: 05-26-2024 [facility] Start: 04-22-2023 Gender identity Identifies as female gender (finding) [facility] Medical Equipment Procedure Code Equipment Code Equipment Origin al Text Equipment Identifier Dates 1 strip by In Vi tro route Daily Use in the morning prior to breakfast, 1 hour after each meal for a total of 4times daily. [id number] Start: 11-23-2024 End: 12-25-2024 1 each by In Vit ro route Daily Use to check FSBS four times daily [id number] Start: 11-23-2024 End: 12-23-2024 1 strip by In Vi tro route Daily Use in the morning prior to breakfast, 1 hour after each meal for a total of 4times daily. [id number] Start: 12-25-2024 End: 01-24-2025 1 each by In Vit ro route Daily Use to check FSBS four times daily [id number] Start: 01-01-2025 End: 01-31-2025 Clinical Notes 04-21-2024 to 01-09-2025 Libia Kelly, MANUFACTURING ENGINEER MACHINING - 01/09/2025 1:40 PM EDTisha Huizar, DRIVER LICENSE AGENT - 12/25/2024 2:00 PM Payton Kelly, MANUFACTURING ENGINEER MACHINING - 12/13/2024 2:30 PM EDLiborio Kelly, CARA - 11/28/2024 1:50 PM EDT Note Date & Type Note Facility 01-09-2025 History of Presen t illness Narrative Reason [...] MEAL FOR A TOTAL OF 4TIMES DAILY. Glucose Blood (Blood Glucose Test) strip 1 strip, In Vitro, Daily, Use in the morning prior to breakfast, 1 hour after each meal for a total of 4times daily. Lancets Ultra Thin misc 1 each, In Vitro, Daily, Use to check FSBS four times daily Multiple Vitamins-Minerals (MULTIVITAMIN ADULT, MINERALS, PO) Multivitamin Hbaznzeu-Xkm-Oe-FA ( 1 + IRON PO) ALLERGIES Allergies [...] 08/21/2024 History of pre-eclampsia 08/21/2024 Second trimester ([facility]) 08/21/2024 Resolved Ambulatory Problems [...] nursing note reviewed. Exam conducted with a tack cutter present. Vitals: Estimated body mass index is 34.11 kg/m as calculated from the following: Height as of 06/24/23: 5' 5 . Weight as of this encounter: 205 lb. BP: 118/78 Patient's last menstrual period was 05/14/2024. ASSESSMENT & PLAN ICD-10-CM 1. Third trimester ([facility]) Z34.93 POCT urinalysis dipstick manually resulted 2. 34 weeks gestation of ([facility]) Z3A.34 3. H/O pre-eclampsia in prior , currently ([facility]) O09.299 4. Diet controlled gestational diabetes mellitus (GDM), antepartum ([facility]) O24.410 Return OB: Patient presents [...] Eric Holly DO documented in this encounter [facility] 12-25-2024 History of Presen t illness Narrative [...] Multiple Vitamins-Minerals (MULTIVITAMIN ADULT, MINERALS, PO) Multivitamin Fgtoghjr-Sfc-Or-FA ( 1 + IRON PO) ALLERGIES Allergies [...] nursing note reviewed. Exam conducted with a tack cutter present. Vitals: Estimated body mass index is [...] Eric Holly DO documented in this encounter [facility] 12-13-2024 History of Presen [...] Multiple Vitamins-Minerals (MULTIVITAMIN ADULT, MINERALS, PO) Multivitamin Sreoozwp-Bay-Zx-FA ( 1 + IRON PO) ALLERGIES Allergies [...] nursing note reviewed. Exam conducted with a tack cutter present. Vitals: Estimated body mass index is [...] Eric Holly DO documented in this encounter [facility] 11-28-2024 History of Presen [...] (ProtoNix) 20 MG EC tablet Pantoprazole Sodium Rgsjusfz-Hxk-St-FA ( 1 + IRON PO) ALLERGIES Allergies [...] nursing note reviewed. Exam conducted with a tack cutter present. Vitals: Estimated body mass index is [...] Eric Holly DO documented in this encounter [facility] 11-07-2024 History of Presen t illness Narrative Reason for Appointment: Patient ID: Abram Villarreal is a 33 y.o. female who presents for Routine Visit Patient presents today for Return OB appointment. MEDICATIONS Current Outpatient Medications Medication Instructions albuterol HFA 90 mcg/act inhaler Every 4 hours Multiple Vitamins-Minerals (MULTIVITAMIN ADULT, MINERALS, PO) Multivitamin pantoprazole (ProtoNix) 20 MG EC tablet Pantoprazole Sodium Tbrhhwxk-Kej-Kt-FA ( 1 + IRON PO) valACYclovir (VALTREX) [...] nursing note reviewed. Exam conducted with a tack cutter present. Vitals: Estimated body mass index is [...] Eric Holly DO documented in this encounter [facility] 09-18-2024 History of Presen [...] nursing note reviewed. Exam conducted with a tack cutter present. Vitals: Estimated body mass index is [...] of: PALLAVI Mccord documented in this encounter [facility] 08-21-2024 History of Presen [...] or undercooked meat, and stay away from [facility]. Patient has been consulted regarding any [...] Eric Holly DO documented in this encounter [facility] 07-21-2024 History of Presen [...] or undercooked meat, and stay away from [facility]. Patient has also been advised to [...] Keiko Bruce MA documented in this encounter [facility] 04-21-2024 Evaluation note Diagnosis Onset Date Resolution Acute right otitis media acute April 21, 2024 1:26pm Viral URI acute June 08, 2024 9:51am [facility] Work Phone: Evaluation note* Diagnosis Onset Date Resolution Status Strep throat acute [facility] Work Phone: Evaluation note* Diagnosis Onset Date Resolution Status Acute right otitis media acu te [facility] Work Phone: Evaluation note* Diagnosis Missed menses [...] with cough acute Febr uary 2024 3:37pm [facility] Work Phone: evaluation note* Diagnosis Well woman [...] tolerance test [facility] Diagnosis Third trimester ([facility]) state, incidental 34 weeks gestation of ([facility]) H/O pre-eclampsia in prior , currently ([facility]) Diet controlled gestational diabetes mellitus (GDM), antepartum ([facility]) documented in this encounter [facility] Summary [...] section and content) DATE CREATED AUTHOR 01/19/2018 [facility] DATE CREATED AUTHOR AUTHOR'S ORGANIZ ATION 01/19/2018 [facility] DATE CREATED AUTHOR AUTHOR'S ORGANIZ ATION 08/26/2022 [facility] DATE CREATED AUTHOR AUTHOR'S ORGANIZ ATION 12/02/2022 [facility] DATE CREATED AUTHOR AUTHOR'S ORGANIZ ATION 12/26/2024 [facility] Care Teams (unrecognized sec tion and content) [...] June 08, 2024 End: June 08, 2024 Grain Trader Relationship Specialty Start Date End Date Cuco Munoz MD [address] [place] [facility] [place] [address] PCP - General Family Medicine 06/24/23 Grain Trader Relationship Specialty Start Date End Date Cuco Munoz MD [address] [place] [facility] [place] [address] PCP - General Family Medicine 06/24/23 Grain Trader Relationship Specialty Start Date End Date Cuco Munoz MD [address] [place] [facility] [place] [address] PCP - General Family Medicine 06/24/23 Grain Trader Relationship Specialty Start Date End Date Cuco Munoz MD [address] [facility] [place] [address] PCP - General Family Medicine 06/24/23 Team Status: Inactive Member Role Status Dates Violet Cerda NP-C Primary Care Provider Active Start: September 08, 2024 End: September 08, 2024 VI Nevarez Active Start: August End: September 08, 2024 Mayte Joiner APRN Attending Provider Active Start: September 08, 2024 End: September 08, 2024 Grain Trader Relationship Specialty Start Date End Date Cuco Munoz MD [address] [facility], [place] [id number] PCP - General Family Medicine 06/24/23 Grain Trader Relationship Specialty Start Date End Date Cuco Munoz MD [address] [place] [address] PCP - General Family Medicine 06/24/23 Grain Trader Relationship Specialty Start Date End Date Cuco Munoz MD [address] [place] [address] PCP - General Family Medicine 06/24/23 Grain Trader Relationship Specialty Start Date End Date Cuco Munoz MD [address] [place] [address] PCP - General Family Medicine 06/24/23 Grain Trader Relationship Specialty Start Date End Date Cuco Munoz MD [address] [place] [address] PCP - General Family Medicine 06/24/23 Grain Trader Relationship Specialty Start Date End Date Cuco Munoz MD [address] [place] [address] PCP - General Family Medicine 06/24/23 Grain Trader Relationship Specialty Start Date End Date Cuco Munoz MD [address] [place] [address] PCP - General Family Medicine 06/24/23 Grain Trader Relationship Specialty Start Date End Date Cuco Munoz MD [address] [place] [address] PCP - General Family Medicine 06/24/23 Grain Trader Relationship Specialty Start Date End Date Cuco Munoz MD [address] [place] [address] PCP - General Family Medicine 06/24/23 Grain Trader Relationship Specialty Start Date End Date Cuco Munoz MD [address] [place] [address] PCP - General Family Medicine 06/24/23 Grain Trader Relationship Specialty Start Date End Date Cuco Munoz MD [address] [place], [place] [id number] PCP - General Family Medicine 06/24/23 Grain Trader Relationship Specialty Start Date End Date Cuco Munoz MD [address] [place] [address] PCP - General Family Medicine 06/24/23 Grain Trader Relationship Specialty Start Date End Date Cuco Munoz MD [address] [place] [address] PCP - General Family Medicine 06/24/23 Grain Trader Relationship Specialty Start Date End Date Cuco Munoz MD [address] [place], [place] [id number] PCP - General Family Medicine 06/24/23 Goals [...] BE BASED ON THE PRIMARY CLINICAL RECORDS. [facility] [employer] [facility]. provides no warranty or guarantee of the accuracy or completeness of information in this document.
== END 2025-01-10 17:21 | disposition home or self-care (01) ==
LOC: US 15:58 → FBC 16:00
PROVIDERS: Visit Provider Obstetrics & Gynecology
DX: O24.419 Gestational diabetes mellitus in pregnancy, unspecified control (principal); Z3A.34 34 weeks gestation of pregnancy
CPT/HCPCS: 76818

== ENCOUNTER 2025-01-17 16:07 | Outpatient (OUT) | payer MEDICAID, SELFPAY ==
--- OUTSIDE RECORDS SUMMARY | 2024-10-20 10:15 | XMS_ITS ---
Author Organization [facility] Serv es Address [address] [place] [address] Care Team Providers Care Slag Skimmer Name Role Phone Suki Mayer Primary Care Provider [phone] Halley Nugent Unavailable Clare Talley Unavailable [phone] REASON FOR VISIT BH f/u 2-4 weeks Encounters Encounter Location Date Provider Diagnosis [facility] [address] [place] [address] 10/20/2024 Clare Talley Plan Of Treatment Next Appt Details Provider Name:Karin Knowles, 04/25/2025 03:00:00 PM, [address] [place], [address], Progress Notes * MOUNIKA NELSONNURIAOB:1990 (34 yo F)Acc No.[id number]:10/20/2024 BH F/U - Patient Patient: ABRAM PALOMO Provider: Gerard Talley :1990 A ge:33 Y S ex:Female Date:10/20/2024 Address[address] [place], [place] Pcp:Suki Mayer Subjective: * Chief Complaints: * 1 . BH f/u 2-4 weeks. Objective: Therapeutic Interventions: Assessment: Plan: * Images: Care Plan Details* * Electronic signature of RISHI Torres on 01/17/2025 at 04:10 PM EDT Sign off status: Pending * Provider: Gerard Talley Date: 0 10/20/2024 Generated for Sujatha Rivera on: 0 01/17/2025 04:10 PM EDT
--- OUTSIDE RECORDS SUMMARY | 2025-01-09 13:40 | XMS_ITS | Encounter Summary ---
Author Organization [facility] Address [address] [facility] [place] [address] Care Team Providers Care Defect Cutter Name Role Phone Cuco Munoz MD Primary Care Provider [phone] Reason for Visit * Reason Comments Routine Visit Encounter Details Date Type Department Care Team (Late st Contact Info) Description 01/09/2025 1:40 PM EDT Routine [facility] [address] [place] [address] Eric Holly, DO [address] [facility] [place] [address] Third trimester ([facility]); 34 weeks gestation of ([facility]); H/O pre-eclampsia in prior , currently ([facility]); Diet controlled gestational diabetes mellitus (GDM), antepartum ([facility]) Social History Tobacco Use Types Packs/Day Years [...] Multiple Vitamins-Minerals (MULTIVITAMIN ADULT, MINERALS, PO) Multivitamin Wvnrppaw-Rvg-Yt-FA ( 1 + IRON PO) ALLERGIES Allergies [...] 08/21/2024 History of pre-eclampsia 08/21/2024 Second trimester ([facility]) 08/21/2024 Resolved Ambulatory Problems Diagnosis Date Noted [...] nursing note reviewed. Exam conducted with a pump and blower operator present. Vitals: Estimated body mass index is 34.11 kg/m?? as calculated from the following: Height as of 06/24/23: 5' 5 . Weight as of this encounter: 205 lb. BP: 118/78 Patient's last menstrual period was 05/14/2024. ASSESSMENT & PLAN ICD-10-CM 1. Third trimester ([facility]) Z34.93 POCT urinalysis dipstick manually resulted 2. 34 weeks gestation of ([facility]) Z3A.34 3. H/O pre-eclampsia in prior , currently ([facility]) O09.299 4. Diet controlled gestational diabetes mellitus (GDM), antepartum ([facility]) O24.410 Return OB: Patient presents today for [...] Care Team (Late st Contact Info) Description 01/22/2025 1:30 PM EDT Routine [facility] [address] [place] [phone] Eric Holly DO [address] [facility] [address] [place] [address] documented as of this encounter Procedures Procedure Name Priority Date/Time Associated Diagnosis Comments POCT URINALYSIS DIPSTICK Routine 01/09/2025 1:53 PM EDT Third trimester ([facility]) documented in this encounter Results * POCT [...] this encounter Visit Diagnoses Diagnosis Third trimester ([facility]) state, incidental 34 weeks gestation of ([facility]) H/O pre-eclampsia in prior , currently ([facility]) Diet controlled gestational diabetes mellitus (GDM), antepartum ([facility]) documented in this encounter Care Teams Defect Cutter Relationship Specialty Start Date End Date Cuco Munoz MD [address] [place] [address] PCP - General Family Medicine 06/24/23 documented as of this encounter
--- NOTE | 2025-01-17 16:10 | US_ITS ---
The [address] [address] Patient Name: ABRAM NELSON MRN: [id number] date: 1990 Sex: F Assigned Patient Location: Current Patient Location: Accession/Order Number: [id number] Exam Date: 01/18/2025 08:13 Report Date: 01/18/2025 08:14 At the request of: KERMIT MG DO Procedure: US OB BPP w non-stress BIOPHYSICAL PROFILE: CLINICAL INFORMATION: GESTATIONAL DIABETES MELLITUS O24.419 COMPARISON: 01/10/2025 There is a single live intrauterine gestation in cephalic presentation. The reported gestational age is 35 weeks 5 days. The heart rate measures 143 beats per minute. FINDINGS: TONE: 1 or more episodes of activity extension and flexion of extremity or opening and closing of the hand [Y] 2/2 GROSS BODY MOVEMENTS: 3 or more discrete body or limb movements [Y] 2/2 BREATHING MOVEMENTS: 1 or more episodes of breathing lasting at least 30 seconds [Y] 2/2 ANABELA: A single deepest vertical pocket of amniotic fluid greater than 2 cm [Y] 2/2 ANABELA: 12.6 cm. This is in low-normal range. Total score: 8/8 / OB BPP w non-stress IMPRESSION: NORMAL BIOPHYSICAL PROFILE Impression dictated by: Libia Shrestha M.D. 01/18/2025 8:14 AM Dictation Location: [place] [address] Electronically authenticated by: [id number] Y Date: 01/18/2025 08:14
--- OUTSIDE RECORDS SUMMARY | 2025-01-17 16:10 | XMS_ITS | Clinical Summary ---
Author Organization [facility] Address [address] [place] [address] Care Team Providers Care Counter Roller Name Role Phone Cuco Munoz MD Primary Care Provider [phone] Allergies Active Allergy Reactions Criticality Noted Date Comments Amoxicillin Hives,Rash Low 02/07/2017 Other Reaction(s): hives, Unknown Azithromycin Hives,Rash Low 02/07/2017 Cefaclor Hives,Rash Low 02/07/2017 Clarithromycin Hives,Rash,Unknown Low 02/07/2017 Other Reaction(s): hives Doxycycline Hives,Rash Low 06/24/2023 Sulfa Antibiotics Hives,Rash Low 02/06/2017 Other Reaction(s): hives, Unknown Sulfamethoxazole-Trimetho prim Hives,Rash Low 02/07/2017 Other Reaction(s): hives, Unknown Medications Bmxkcese-Gnb-Ke-FA ( 1 + IRON PO) Active albuterol [...] daily 150 each 3 025 2024 Active Lancets Ultra Thin [...] Encounters Date Type Department Care Team Description 01/10/2025 Clinisync Result Encounter [facility] External Department Unsolicited Kermit Holly, DO 01/09/2025 1:40 PM EDT Routine [facility] [address] [facility] [place] [address] Kermit Holly, DO Third trimester ([facility]); 34 weeks gestation of ([facility]); H/O pre-eclampsia in prior , currently ([facility]); Diet controlled gestational diabetes mellitus (GDM), antepartum ([facility]) 01/09/2025 Bamboo flowsheet [facility] [address] [facility] [place] [place] [address] Kermit Holly, DO 01/06/2025 Travel 01/04/2025 Telephone [facility] [address] [place] [address] Priscila [place] 01/03/2025 Clinisync Result Encounter [facility] External Department Unsolicited Kermit Holly, DO 01/01/2025 Telephone [facility] [place] [address] Priscila [place] 12/27/2024 Clinisync Result Encounter [facility] External Department Unsolicited Kermit Holly, DO 12/27/2024 Clinisync Result Encounter [facility] External Department Unsolicited Kermit Holly, DO 12/25/2024 2:00 PM EDT Routine [facility] [address] [place] [address] Kermit Holly, DO 32 weeks gestation of ([facility]); Third trimester ([facility]); Gestational diabetes mellitus (GDM), antepartum, gestational diabetes method of control unspecified ([facility]); Elevated glucose tolerance test 12/25/[address] [facility] [address] [place] [address] Kermit Holly, Gestational diabetes mellitus (GDM), antepartum, gestational diabetes method of control unspecified ([facility]); Elevated glucose tolerance test 12/22/2024 Travel 12/13/2024 2:30 PM EDT Routine [facility] [address] [place] [address] Kermit Holly, 30 weeks gestation of ([facility]); Third trimester ([facility]); Gestational diabetes mellitus (GDM), antepartum, gestational diabetes method of control unspecified ([facility]) 12/13/2024 Bamboo flowsheet [facility] [address] [place] [address] Kermit Holly, 12/10/2024 Travel 11/28/2024 1:50 PM EDT Routine [facility] [address] [place] [address] Kermit Holly, Third trimester ([facility]); 28 weeks gestation of ([facility]) 11/28/2024 Bamboo flowsheet [facility] [address] [place] [address] Kermit Holly, 11/25/2024 Travel 11/23/2024 Telephone [facility] [address] [place] [address] Keiko Bruce MA 11/23/2024 Clinisync Result Encounter [facility] External Department Unsolicited Kermit Holly, 11/16/2024 Clinisync Result Encounter [facility] External Department Unsolicited Kermit Holly, DO 11/07/2024 1:20 PM EDT Routine [facility] [address] [place] [phone] Kermit Holly DO Second trimester ([facility]); 25 weeks gestation of ([facility]); Diabetes mellitus screening 11/07/2024 Bamboo flowsheet [facility] [address] [place] [address] [place] [phone] Kermit Holly DO 11/05/2024 Travel 10/27/2024 Clinisync [...] Description 01/22/2025 1:30 PM EDT Routine [facility] [address] [facility] [place] [place] [phone] Kermit Holly DO [address] [place] [address] [place], [place] [phone] Health Maintenance Due Date Last Done Comments Influenza Vaccine (Season Ended) 2025 Cervical Cancer Screening 09/18/2025 HPV/Cotest 09/18/2025 Pap Smear 09/18/2025 09/18/2024 Procedures Procedure Name Priority Date/Time Associated Diagnosis Comments US OB BPP W NON-STRESS 01/10/2025 7:01 PM EDT POCT URINALYSIS DIPSTICK Routine 01/09/2025 1:53 PM [...] 11/23/2024 10:40 AM EDT [facility] UA (CLEAN/CATCH) SOFTWARE LEAD/MICRO IF IND. Routine 11/16/2024 7:27 PM EDT POCT URINALYSIS DIPSTICK Routine 11/07/2024 1:47 PM EDT Second trimester ([facility]) US OB INCOMPLETE ANATOMY 10/27/2024 7:11 PM EDT PAP SMEAR Routine 09/18/2024 12:00 AM EST from Last 3 Months or Most Recently Relevant to Health Maintenance Results * US OB BPP W NON-STRESS (01/10/2025 7:01 PM EDT) Only the most recent of3 resultswithin the time period is included. Anatomical Region Laterality Modality Other 01/10/2025 7:01 PM EDT Narrative 01/10/2025 7:03 PM EDT [address] [address] Ultrasound Report Signed Patient: LYNNETTE NELSON MR#: [id number] : 1990 Acct:[id number] Age/Sex: 34 / F ADM Date: 01/10/25 Loc: US Attending Dr: Kermit Holly D.O. Ordering Physician: Kermit Holly D.O. Date of Service: 01/10/25 Procedure(s): US OB BPP w non-stress Accession Number(s): [id number] cc: Kermit Holly D.O.; Physician,Non-Staff M.Royal [address] [address] Patient Name: LYNNETTE NELSON MRN: [id number]:[id number] date: 1990 Sex: F Assigned Patient Location: [facility] Current Patient Location: Accession/Order Number: [id number] Exam Date: 01/10/2025 18:57 Report Date: 01/10/2025 19:01 At the request of: KERMIT HOLLY DO Procedure: US OB BPP w non-stress US OB BPP w non-stress 01/10/2025 4:37 PM SIGNS AND SYMPTOMS: 02/16/2025 GESTATIONAL DIABETES MELLITUS O24.419 PROTOCOL: Transabdominal sonographic images of the gravid uterus COMPARISON: None FINDINGS: Estimated gestational age is 34 weeks and 5 days. heart rate: 131 bpm Amniotic fluid index: 16.98 cm with the deepest vertical pocket measuring 5.7 cm. Biophysical profile: movements: 2/2 tone: 2/2. breathing movements: 2/2 Amniotic fluid volume: 2/2 US/US OB BPP w non-stress IMPRESSION: Biophysical profile score: 8/8 heart rate: 131 bpm Amniotic fluid index: 16.98 cm with the deepest vertical pocket measuring 5.7 cm. Impression dictated by: Lavelle Jordan M.D. 01/10/2025 7:01 PM Dictation Location: [place] [address] Electronically authenticated by: [id number] Y Date: 01/10/2025 19:01 Dictated By: Lavelle Jordan M.D. Signed By: 01/10/251902 DD/ 00 TD/TT: Certified Medication Technician: Procedure Note Radiology, Radiologist, MD - 01/10/2025 [place] [address] Ultrasound Report Signed Patient: LYNNETTE NELSON RMR#: [id number] : 1990Acct:[id number] Age/Sex: 34 / FADM Date: 01/10/25 Loc: US Attending Dr: Kermit Holly D.O. Ordering Physician: Kermit Holly D.O. Date of Service: 01/10/25 Procedure(s): US OB BPP w non-stress Accession Number(s): [id number] cc: Kermit Holly D.O.; Physician,Non-Staff [place] [id number] Patient Name: LYNNETTE NELSON MRN: [id number] date: 1990 Sex: F Assigned Patient Location: [facility] Current Patient Location: Accession/Order Number: [id number] Exam Date: 01/10/2025 18:57 Report Date: 01/10/2025 19:01 At the request of: KERMIT HOLLY DO Procedure: US OB BPP w non-stress US OB BPP w non-stress 01/10/2025 4:37 PM SIGNS AND SYMPTOMS: 02/16/2025 GESTATIONAL DIABETES MELLITUS O24.419 PROTOCOL: Transabdominal sonographic images of the gravid uterus COMPARISON: None FINDINGS: Estimated gestational age is 34 weeks and 5 days. heart rate: 131 bpm Amniotic fluid index: 16.98 cm with the deepest vertical pocket measuring5.7 cm. Biophysical profile: movements: 2/2 tone: 2/2. breathing movements: 2/2 Amniotic fluid volume: 2/2 US/US OB BPP w non-stress IMPRESSION: Biophysical profile score: 8/8 heart rate: 131 bpm Amniotic fluid index: 16.98 cm with the deepest vertical pocket measuring5.7 cm. Impression dictated by: Lavelle Jordan M.D. 01/10/2025 7:01 PM Dictation Location: [place] [address] Electronically authenticated by: [id number] Y Date: 9:01 Dictated By: Lavelle Jordan M.D. Signed By:01/10/251902 DD/ 00 TD/TT: Certified Medication Technician: Kermit Elayne DO [facility] Final Result * POCT urinalysis dipstick manually resulted (01/09/2025 [...] - Positive Urine 01/09/2025 1:53 PM EDT Kermit Elayne DO POINT OF CARE TEST ENTER/EDIT OR DERABLES Final Result * US OB GROWTH (12/27/2024 7:37 PM EDT) Anatomical Region Laterality Modality Other 12/27/2024 7:37 PM EDT Narrative 12/27/2024 7:40 [place] [address] Ultrasound Report Signed Patient: LYNNETTE NELSON MR#: [id number] : 1990 Acct:[id number] Age/Sex: 34 / F ADM Date: 12/27/24 Loc: US Attending Dr: Kermit Holly D.O. Ordering Physician: Kermit Holly D.O. Date of Service: 12/27/24 Procedure(s): US OB growth Accession Number(s): [id number] cc: Kermit Holly D.O.; Physician,Non-Staff [place] [address] Patient Name: LYNNETTE NELSON MRN: [id number] date: 1990 Sex: F Assigned Patient Location: US Current Patient Location: Accession/Order Number: [id number] Exam Date: 12/27/2024 19:33 Report Date: 12/27/2024 [...] 12/27/2024 7:37 PM Dictation Location: [place] [address] Electronically authenticated by: [id number] Y Date: 12/27/2024 19:37 Dictated By: David Chaudhari D.O. Signed By: 12/27/241939 DD/ 36 TD/TT: Certified Medication Technician: Procedure Note Radiology, Radiologist, - 12/28/2024 [place] [address] Ultrasound Report Signed Patient: LYNNETTE NELSON RMR#: [id number] : 1990Acct:[id number] Age/Sex: 34 / FADM Date: 12/27/24 Loc: US Attending Dr: Kermit Holly D.O. Ordering Physician: Kermit Holly D.O. Date of Service: 12/27/24 Procedure(s): US OB growth Accession Number(s): [id number] cc: Kermit Holly D.O.; Physician,Non-Staff [place] [address] Patient Name: LYNNETTE NELSON MRN: [facility]:[id number] date: 1990 Sex: F Assigned Patient Location: US Current Patient Location: Accession/Order Number: [id number] Exam Date: 12/27/2024 19:33 Report Date: 12/27/2024 [...] 12/27/2024 7:37 PM Dictation Location: [place] [address] Electronically authenticated by: [id number] Y Date: 9:37 Dictated By: David Chaudhari D.O. Signed By:12/27/241939 DD/ 36 TD/TT: Certified Medication Technician: Kermit Holly DO [facility] Final Result * (ABNORMAL) GLUCOSE 1 HOUR (11/23/2024 10:40 AM EDT) GLUCOSE 1 HOUR 191(H) <130 mg/dL [facility] 11/23/2024 10:4 0 AM EDT 11/23/2024 10:42 AM EDT Narrative [facility] - 11/23/2024 11:31 AM EDT us Kermit Holly DO LAB BLOOD ORDERABLES Final Resul t [facility] * (ABNORMAL) ALL CBC WITH AUTO DIFF [...] us Kermit Elayne DO [facility] Final Result Performing Organization Address [facility] Co de Phone Number [facility] * [facility] UA (CLEAN/CATCH) SOFTWARE LEAD/MICRO IF IND. (11/16/2024 7:27 PM EDT) COLOR [...] DO [facility] Final Result Performing Organization Address [facility] Co de Phone Number [facility] * US OB INCOMPLETE ANATOMY (10/27/2024 7:11 PM EDT) Anatomical Region Laterality Modality Other 10/27/2024 7:11 PM EDT Narrative 10/27/2024 7:14 PM EDT [address] [address] Ultrasound Report Signed Patient: LYNNETTE NELSON MR#: [id number] : 1990 Acct:[id number] Age/Sex: 33 / F ADM Date: 10/27/24 Loc: US Attending Dr: Kermit Holly D.O. Ordering Physician: Kermit Holly D.O. Date of Service: 10/27/24 Procedure(s): US OB incomplete anatomy Accession Number(s): [id number] cc: Kermit Holly D.O.; Physician,Non-Staff [place] The [address] [address] Patient Name: LYNNETTE NELSON MRN: [facility]:[id number] date: 1990 Sex: F Assigned Patient Location: US Current Patient Location: US Accession/Order Number: [id number] Exam Date: 10/27/2024 19:10 Report Date: 10/27/2024 [...] David Chaudhari M.D.10/27/2024 7:11 PM Dictation Location: [place] [address] Electronically authenticated by: [id number] Y Date: 10/27/2024 19:11 Dictated By: David Chaudhari D.O. Signed By: 10/27/241913 DD/ 10 TD/TT: Certified Medication Technician: Procedure Note Radiology, Radiologist, MD - 10/27/2024 The [place] [id number] Ultrasound Report Signed Patient: LYNNETTE NELSON RMR#: [id number] : 1990Acct:[id number] Age/Sex: 33 / FADM Date: 10/27/24 Loc: US Attending Dr: Kermit Holly D.O. Ordering Physician: Kermit Holly D.O. Date of Service: 10/27/24 Procedure(s): US OB incomplete anatomy Accession Number(s): [id number] cc: Kermit Holly D.O.; Physician,Non-Staff [place] The [address] [address] Patient Name: LYNNETTE NELSON MRN: [id number] date: 1990 Sex: F Assigned Patient Location: US Current Patient Location: US Accession/Order Number: [id number] Exam Date: 10/27/2024 19:10 Report Date: 10/27/2024 [...] David Chaudhari M.D.10/27/2024 7:11 PM Dictation Location: [place] [address] Electronically authenticated by: [id number] Y Date: 9:11 Dictated By: David Chaudhari D.O. Signed By:10/27/241913 DD/ 10 TD/TT: Certified Medication Technician: us Kermit Holly DO [facility] Final Result * Pap Smear (09/18/2024 12:00 AM EST) Swab Cervical swab / Unknown Loraine OLIVO LAB CYTOLOGY ORDERABLES Final Re sult EXTERNAL LAB from Last 3 Months or Most Recently Relevant to Health Maintenance Insurance [employer] [place] Care Teams Counter Roller Relationship Specialty Start Date End Date Cuco Munoz MD [address] [place] [address] PCP - General Family Medicine 06/24/23
--- OUTSIDE RECORDS SUMMARY | 2025-01-17 16:10 | XMS_ITS | Clinical Summary ---
Author Organization [facility] Address [address] [place] [address] Care Team Providers Care Patrol Police Sergeant Name Role Phone Viry Cortez MD Primary [...] 3:00 AM 02/07/2017 8:37 PM Care Teams Patrol Police Sergeant Relationship Specialty Start Date End Date Viry Cortez MD [address] [facility] [place] [address] PCP - General 02/07/17
--- OUTSIDE RECORDS SUMMARY | 2025-01-17 16:10 | XMS_ITS | Patient Health Record ---
Author Organization [facility] Address [address] [place] [address] Care Team Providers Care Action Finisher Name Role Phone Suki Mayer Primary Care Provider [phone] Halley Nugent Unavailable Clare Talley Unavailable [phone] Karin Knowles Unavailable [phone] Pema Law Unavailable [phone] Allergies Allergen (clinical drug ingredient) Drug/Non Drug [...] Problem Status W/U Status Risk Notes Problem [id number] Mild persistent asthma without complication (J45.30) Active [...] 09/12/2024 Encounters Encounter Location Date Provider Diagnosis [facility] [address] [place] [address] 04/13/2024 Clare Shedron Depression, major, recurrent, mild F33.0 [facility] [address] [facility] [place] [address] 04/25/2024 Clare Shedron Depression, major, recurrent, mild F33.0 [facility] [address] [facility] [place] [address] 05/09/2024 Clare Shedron Depression, major, recurrent, mild F33.0 [facility] [address] [place] [address] 06/26/2024 Clare Shedron Depression, major, recurrent, mild F33.0 [facility] [address] [place] [address] 07/13/2024 Clare Shedron Depression, major, recurrent, mild F33.0 [facility] [address] [place] [address] 08/11/2024 Clare Shedron Depression, major, recurrent, mild F33.0 [facility] [address] [place] [address] 08/25/2024 Clare Shedron Depression, major, recurrent, mild F33.0 [facility] [address] [place] [address] 09/29/2024 Clare Shedron Depression, major, recurrent, mild F33.0 [facility] [address] [place] [address] 05/24/2024 Clare Shedron Depression, major, recurrent, mild F33.0 [facility] [address] [facility] [address] 10/05/2024 Karni Knowles Encounter for dental examination and cleaning with abnormal findings Z01.21 and Acute gingivitis, plaque induced K05.00 [facility] [address] [place] [address] 09/12/2024 Suki Mayer Mild persistent asth ma without complication J45.30 and Influenza A J10.1 [facility] [address] [place] [address] 03/29/2024 Clare [place] [address] [place] [address] 06/08/2024 [place] [address] [place] [address] 06/26/2024 [facility] Assessments Encounter Date Diagnosis (ICD Code) Assessment [...] Provider Name:Karin Knowles, 04/25/2025 03:00:00 PM, [address] [place], [address], Insurance Providers Payer Name Payer Address Payer Phone Subscriber Number Group Number Insured Name Patient Relationship to Insured Coverage Start Date Coverage End Date [employer] [place] Medicaid [address] [place] [address] [id number] ABRAM NELSON Self - patient is the insured 3 Wrap CFC [facility] [address] [place] [address] [id number] ABRAM NELSON Self - patient is the insured 3 [facility] 22 [address] [place] [address] [id number] ABRAM NELSON Self - patient is the insured 2 3 zMedicaid CFC after [place] BCBS-term ed 22 [address] [place] [address] [id number] ABRAM NELSON Self - patient is the insured 2 3 zDENTAL DQ PARAMOUNT -termed 22 [address] [place] [id number] ABRAM NELSON Self - patient is the insured 2 3 zDental MEDICAID CFC after [place] -termed 22 [address] [place] [address] [id number] ABRAM NELSON Self - patient is the insured 2 3 Dental [place] [address] [place] [phone] [id number] ABRAM NELSON Self - patient is the insured 3 Dental Wrap [facility] [address] [place] [address] [id number] ABRAM NELSON Self - patient is the insured 3 [facility] [address] [place] [address] [id number] ABRAM NELSON Self - patient is the insured 4 BH Wrap [facility] [address] [place] [address] [id number] ABRAM NELSON Self - patient is the insured 4 DENTAL [employer] [address] [address] [place] [phone] [id number] ABRAM NELSON Self - patient is the insured 5 Medical (General) History Medical History History ICD Code Asthma
--- OUTSIDE RECORDS SUMMARY | 2025-01-17 16:11 | XMS_ITS | Encounter Summary ---
Author Organization [facility] Address [address] [place] [address] Care Team Providers Care Gaming Dealer Name Role Phone Cuco Munoz MD Primary Care Provider [phone] Encounter Details Date Type Department Care Team (Late Contact Info) Description 01/09/2025 Bamboo flowsheet [facility] OB [address] [place] [address] Eric Holly [address] Maureen Uriotsegui, [facility]11 Social History Tobacco Use Types Packs/Day [...] Description 01/22/2025 1:30 PM EDT Routine [facility] OB [address] [place] [address] Eric Holly [facility] [place] Uriostegui, [facility]11 documented as of this encounter Visit Diagnoses Not on filedocumented in this encounter Care Teams Gaming Dealer Relationship Specialty Start Date End Date Cuco Munoz MD [address] [place] [address] PCP - General Family Medicine 06/24/23 documented as of this encounter
--- OUTSIDE RECORDS SUMMARY | 2025-01-17 16:11 | XMS_ITS | Encounter Summary ---
Author Organization [facility] Address [address] [place] [address] Care Team Providers Care Library Acquisitions Technician Name Role Phone Cuco Munoz MD Primary Care Provider [phone] Encounter Details Date Type Department Care Team (Late Contact Info) Description 01/04/2025 Telephone [facility] OB [address] [place] [address] [place] [address] Priscila Landry MA Social History [...] Pt requests proof of . Faxed to [phone]. Pt informed that letter was completed and faxed. documented in this encounter Plan of Treatment Upcoming Encounters Date Type Department Care Team (Late Contact Info) Description 01/22/2025 1:30 PM EDT Routine [facility] [address] [place] [address] Eric Holly, [address] [facility] [place] [address] documented as of this encounter Visit Diagnoses Not on filedocumented in this encounter Care Teams Library Acquisitions Technician Relationship Specialty Start Date End Date Cuco Munoz MD [address] [place] [address] PCP - General Family Medicine 06/24/23 documented as of this encounter
--- OUTSIDE RECORDS SUMMARY | 2025-01-17 16:11 | XMS_ITS | Encounter Summary ---
Author Organization [facility] Address [address] [place] [address] Care Team Providers Care Geological Science Teacher Name Role Phone Cuco Munoz MD Primary Care Provider Encounter Details Date Type Department Care Team (Late st Contact Info) Description 01/10/2025 Clinisync Result Encounter [facility] External Department Unsolicited Kermit Holly, DO [address] Uri[place]ui, [facility]11 Social History Tobacco Use Types Packs/Day Years [...] [facility] OB [address] [place] [address] Kermit Holly DO [address] [place] [address] [place] [address] documented as of this encounter Procedures Procedure Name Priority Date/Time Associated Diagnosis Comments US OB BPP W NON-STRESS 01/10/2025 7:01 PM EDT documented in this encounter Results * US OB BPP W NON-STRESS (01/10/2025 7:01 PM EDT) Anatomical Region Laterality Modality Other 01/10/2025 7:01 PM EDT Narrative 01/10/2025 7:03 [place] [address] Ultrasound Report Signed Patient: LYNNETTE NELSON MR#: [id number] : 1990 Acct:[id number] Age/Sex: 34 / F ADM Date: 01/10/25 Loc: US Attending Dr: Kermit Holly D.O. Ordering Physician: Kermit Holly D.O. Date of Service: 01/10/25 Procedure(s): US OB BPP w non-stress Accession Number(s): [id number] cc: Kermit Holly D.O.; Physician,Non-Staff M.DMicah The [place] [id number] Patient Name: LYNNETTE NELSON MRN: [id number] date: 1990 Sex: F Assigned Patient Location: [facility] Current Patient Location: Accession/Order Number: [id number] Exam Date: 01/10/2025 18:57 Report Date: 01/10/2025 [...] Jordan M.D. 01/10/2025 7:01 PM Dictation Location: [place] [address] Electronically authenticated by: [id number] Y Date: 01/10/2025 19:01 Dictated By: Lavelle Jordan M.D. Signed By: 01/10/251902 DD/ 00 TD/TT: Nursery Hand: Procedure Note Radiology, Radiologist, MD - 01/10/2025 [place] [address] Ultrasound Report Signed Patient: LYNNETTE NELSON RMR#: [id number] : 1990Acct:[id number] Age/Sex: 34 / FADM Date: 01/10/25 Loc: US Attending Dr: Kermit Holly D.O. Ordering Physician: Kermit Holly D.O. Date of Service: 01/10/25 Procedure(s): US OB BPP w non-stress Accession Number(s): [id number] cc: Kermit Holly D.O.; Physician,Non-Staff [place] The [address] [id number] Patient Name: LYNNETTE NELSON MRN: [id number] date: 1990 Sex: F Assigned Patient Location: [facility] Current Patient Location: Accession/Order Number: [id number] Exam Date: 01/10/2025 18:57 Report Date: 01/10/2025 [...] pocket measuring5.7 cm. Impression dictated by: Lavelle Jodran M.D. 01/10/2025 7:01 PM Dictation Location: [place] [address] Electronically authenticated by: [id number] Y Date: 9:01 Dictated By: Lavelle Jordan M.D. Signed By:01/10/251902 DD/ 00 TD/TT: Nursery Hand: us Kermit Elayne DO [facility] Final Result documented in this encounter Visit Diagnoses Not on filedocumented in this encounter Care Teams Geological Science Teacher Relationship Specialty Start Date End Date Cuco Munoz MD [address] [place] [address] PCP - General Family Medicine 06/24/23 documented as of this encounter
--- OUTSIDE RECORDS SUMMARY | 2025-01-17 16:11 | XMS_ITS | Encounter Summary ---
Author Organization [facility] Address [address] [place] [address] Care Team Providers Care Publication Director Name Role Phone Cuco Munoz MD Primary Care Provider [phone] Encounter Details Date Type Department Care Team (Late st Contact Info) Description 01/03/2025 Clinisync Result Encounter [facility] External Department Unsolicited Kermit Holly, DO [address] Uri[place]ui, [facility]11 Social History Tobacco Use Types [...] Description 01/22/2025 1:30 PM EDT Routine [facility] OB [address] [place] [address] Kermit Holly DO [address] [place] [address] [place] [address] documented as of this encounter Procedures Procedure Name Priority Date/Time Associated Diagnosis Comments US OB BPP W NON-STRESS 01/03/2025 8:19 PM EDT documented in this encounter Results * US OB BPP W NON-STRESS (01/03/2025 8:19 PM EDT) Anatomical Region Laterality Modality Other 01/03/2025 8:19 PM EDT Narrative 01/03/2025 8:22 [place] [address] Ultrasound Report Signed Patient: LYNNETTE NELSON MR#: [id number] : 1990 Acct:[id number] Age/Sex: 34 / F ADM Date: 01/03/25 Loc: US Attending Dr: Kermit Holly D.O. Ordering Physician: Kermit Holly D.O. Date of Service: 01/03/25 Procedure(s): US OB BPP w non-stress Accession Number(s): [id number] cc: Kermit Holly D.O.; Physician,Non-Staff [place] The [place] [address] Patient Name: LYNNETTE NELSON MRN: [id number] date: 1990 Sex: F Assigned Patient Location: [facility] Current Patient Location: Accession/Order Number: [id number] Exam Date: 01/03/2025 20:18 Report Date: 01/03/2025 [...] Chaudhari M.D. 01/03/2025 8:19 PM Dictation Location[facility] Electronically authenticated by: [id number] Y Date: 01/03/2025 20:19 Dictated By: David Chaudhari D.O. Signed By: 01/03/252021 DD/ 18 TD/TT: Manager Gas: Procedure Note Radiology, Radiologist, - 01/03/2025 [place] [address] Ultrasound Report Signed Patient: LYNNETTE NELSON RMR#: [id number] : 1990Acct:[id number] Age/Sex: 34 / FADM Date: 01/03/25 Loc: US Attending Dr: Kermit Holly D.O. Ordering Physician: Kermit Holly D.O. Date of Service: 01/03/25 Procedure(s): US OB BPP w non-stress Accession Number(s): [id number] cc: Kermit Holly D.O.; Physician,Non-Staff M.[place] The [place] [address] Patient Name: LYNNETTE NELSON MRN: [facility]:[id number] date: 1990 Sex: F Assigned Patient Location: [facility] Current Patient Location: Accession/Order Number: [id number] Exam Date: 01/03/2025 20:18 Report Date: 01/03/2025 [...] Chaudhari M.D. 01/03/2025 8:19 PM Dictation Location: [place] [address] Electronically authenticated by: [id number] Y Date: 0:19 Dictated By: David Chaudhari D.O. Signed By:01/03/252021 DD/ 18 TD/TT: Manager Gas: us Kermit Holly DO [facility] Final Result documented in this encounter Visit Diagnoses Not on filedocumented in this encounter Care Teams Publication Director Relationship Specialty Start Date End Date Cuco Munoz MD [address] [place] [address] PCP - General Family Medicine 06/24/23 documented as of this encounter
--- OUTSIDE RECORDS SUMMARY | 2025-01-17 16:11 | XMS_ITS | Encounter Summary ---
Author Organization [facility] Address [address] [place] [address] [address] Care [address] Project Manager Name Role Phone Cuco Munoz MD Primary Care Provider [phone] Encounter Details Date Type Department Care Team (Late st Contact Info) Description 10/02/2024 Orders Only [facility] OB [address] [facility] [address] Priscila Landry MA Social [...] 1:30 PM EDT Routine [facility] BCP OB [address] [place] [address] Eric Holly, [facility] [address] [place], [place] [address] documented as of this encounter Procedures Procedure Name Priority Date/Time Associated Diagnosis Comments PAP SMEAR Routine 09/18/2024 12:00 AM EST documented in this encounter Results * Pap Smear (09/18/2024 12:00 AM EST) Swab Cervical swab / Unknown [facility] ORDERABLES Final Re sult EXTERNAL LAB documented in this encounter Visit Diagnoses Not on filedocumented in this encounter Care Teams Rd Project Manager Relationship Specialty Start Date End Date Cuco Munoz MD [address] [place] [address] PCP - General Family Medicine 06/24/23 documented as of this encounter
--- OUTSIDE RECORDS SUMMARY | 2025-01-17 16:11 | XMS_ITS | Encounter Summary ---
Author Organization [facility] Address [address] [place] [address] Care Team Providers Care Coke Drawer Hand Name Role Phone Cuco Munoz MD Primary Care Provider [phone] Encounter Details Date Type Department Care Team (Late st Contact Info) Description 07/21/2024 Clinisync Result Encounter [facility] External Department Unsolicited Kermit Holly, DO [address] Uriost[place]ui, [facility]11 Social History Tobacco Use Types Packs/Day [...] Description 01/22/2025 1:30 PM EDT Routine [facility] OB [address] [place] [address] Kermit Holly DO [address] [place] [address] [place] [address] documented as of this encounter Procedures Procedure Name Priority Date/Time Associated Diagnosis Comments US OB TRANSVAGINAL 07/21/2024 4: 17 PM EST documented in this encounter Results * US OB TRANSVAGINAL (07/21/2024 4:17 PM EST) Anatomical Region Laterality Modality Other 07/21/2024 4:17 PM EST Narrative 07/21/2024 4:20 [place] [address] Ultrasound Report Signed Patient: LYNNETTE NELSON MR#: [id number] : 1990 Acct:[id number] Age/Sex: 33 / F ADM Date: 07/21/24 Loc: NOMS Attending Dr: Kermit Holly D.O. Ordering Physician: Kermit Holly D.O. Date of Service: 07/21/24 Procedure(s): US OB transvaginal Accession Number(s): [id number] cc: Kermit Holly D.O.; Physician,Non-Staff M.DMicah The [address] [address] Patient Name: LYNNETTE NELSON MRN: [id number] date: 1990 Sex: F Assigned Patient Location: [facility] Current Patient Location: [facility] Accession/Order Number: [id number] Exam Date: 07/21/2024 10:15 Report Date: 07/21/2024 [...] Signed By: 07/21/24 1620 DD/ 1617 TD/TT: Junior Marketing Associate: Procedure Note Radiology, Radiologist, MD - 07/21/2024 [place] [address] Ultrasound Report Signed Patient: LYNNETTE NELSON RMR#: [id number] : 1990Acct:[id number] Age/Sex: 33 / FADM Date: 07/21/24 Loc: NOMS Attending Dr: Kermit Holly D.O. Ordering Physician: Kermit Holly D.O. Date of Service: 07/21/24 Procedure(s): US OB transvaginal Accession Number(s): [id number] cc: Kermit Holly D.O.; Physician,Non-Staff [place] The [place] [id number] Patient Name: LYNNETTE NELSON MRN: TBH:[id number] date: 1990 Sex: F Assigned Patient Location: [facility] Current Patient Location: [facility] Accession/Order Number: [id number] Exam Date: 07/21/2024 10:15 Report Date: 07/21/2024 [...] M.D. Signed By:07/21/24 162 DD/ 16 TD/TT: Junior Marketing Associate: us Kermit Elayne DO [facility] Final Result documented in this encounter Visit Diagnoses Not on filedocumented in this encounter Care Teams Coke Drawer Hand Relationship Specialty Start Date End Date Cuco Munoz MD [address] [place] [address] PCP - General Family Medicine 06/24/23 documented as of this encounter
--- OUTSIDE RECORDS SUMMARY | 2025-01-17 16:11 | XMS_ITS | Encounter Summary ---
Author Organization [facility] Address [address] [place] [address] Care Team Providers Care Installers Mechanical Name Role Phone Cuco Munoz MD Primary Care Provider [phone] Encounter Details Date Type Department Care Team (Latest Contact Info) Description 01/06/2025 Travel Social History Tobacco Use Types Packs/Day [...] BCP OB [address] [place] [address] Eric Holly, DO [address] [place] [id number] documented as of this encounter Visit Diagnoses Not on filedocumented in this encounter Care Teams Installers Mechanical Relationship Specialty Start Date End Date Cuco Munoz MD [address] [place] [address] PCP - General Family Medicine 06/24/23 documented as of this encounter
[2025-01-17 17:31] VITALS: BP 115/78; PULSE 88
== END 2025-01-17 18:00 | disposition home or self-care (01) ==
LOC: US 16:07
PROVIDERS: Visit Provider Obstetrics & Gynecology
DX: O24.419 Gestational diabetes mellitus in pregnancy, unspecified control (principal); Z3A.35 35 weeks gestation of pregnancy
CPT/HCPCS: 76818

== ENCOUNTER 2025-01-20 11:01 | Outpatient (OUT) | payer MEDICAID, SELFPAY ==
--- OUTSIDE RECORDS SUMMARY | 2024-10-20 10:15 | XMS_ITS ---
Author Organization [facility] Serv es Address [address] [place] [address] Care Team Providers Care Customer Operations Associate Name Role Phone Suki Mayer Primary Care Provider [phone] Halley Nugent Unavailable Clare Talley Unavailable [phone] REASON FOR VISIT BH f/u 2-4 weeks Encounters Encounter Location Date Provider Diagnosis [facility] [address] [place] [address] 10/20/2024 Clare Talley Plan Of Treatment Next Appt Details Provider Name:Karin Knowles, 04/25/2025 03:00:00 PM, [address] [place], [address], Progress Notes * MOUNIKA NELSONNURIAOB:1990 (34 yo F)Acc No.[id number]:10/20/2024 BH F/U - Patient Patient: ABRAM PALOMO Provider: Gerard Talley :1990 A ge:33 Y S ex:Female Date:10/20/2024 Address[address] [place], [place] Pcp:Suki Mayer Subjective: * Chief Complaints: * 1 . BH f/u 2-4 weeks. Objective: Therapeutic Interventions: Assessment: Plan: * Images: Care Plan Details* * Electronic signature of RISHI Torres on 01/20/2025 at 11:03 AM EDT Sign off status: Pending * Provider: Gerard Talley Date: 10/20/2024 Generated for Sujatha Rivera on: 01/20/2025 11:03 AM EDT
--- OUTSIDE RECORDS SUMMARY | 2025-01-09 13:40 | XMS_ITS | Encounter Summary ---
Author Organization [facility] Address [address] [place] [address] Care Team Providers Care Professor Of Chemical Engineering Name Role Phone Cuco Munoz MD Primary Care Provider [phone] Reason for Visit * Reason Comments Routine Visit Encounter Details Date Type Department Care Team (Late st Contact Info) Description 01/09/2025 1:40 PM EDT Routine [facility] [address] [place] [address] Eric Holly, DO [address] [facility] [place] [address] Third trimester ([facility]); 34 weeks gestation of ([facility]); H/O pre-eclampsia in prior , currently ([facility]); Diet controlled gestational diabetes mellitus (GDM), antepartum ([facility]) Social History Tobacco Use Types Packs/Day [...] Multiple Vitamins-Minerals (MULTIVITAMIN ADULT, MINERALS, PO) Multivitamin Mpnuzqve-Dtx-Qe-FA ( 1 + IRON PO) ALLERGIES Allergies [...] 08/21/2024 History of pre-eclampsia 08/21/2024 Second trimester ([facility]) 08/21/2024 Resolved Ambulatory Problems [...] nursing note reviewed. Exam conducted with a news correspondent present. Vitals: Estimated body mass index is 34.11 kg/m?? as calculated from the following: Height as of 06/24/23: 5' 5 . Weight as of this encounter: 205 lb. BP: 118/78 Patient's last menstrual period was 05/14/2024. ASSESSMENT & PLAN ICD-10-CM 1. Third trimester ([facility]) Z34.93 POCT urinalysis dipstick manually resulted 2. 34 weeks gestation of ([facility]) Z3A.34 3. H/O pre-eclampsia in prior , currently ([facility]) O09.299 4. Diet controlled gestational diabetes mellitus (GDM), antepartum ([facility]) O24.410 Return OB: Patient presents today [...] PM EDT Routine [facility] [address] [place] [phone] Eric Holly DO [address] [facility] [place] [address] documented as of this encounter Procedures Procedure Name Priority Date/Time Associated Diagnosis Comments POCT URINALYSIS DIPSTICK Routine 01/09/2025 1:53 PM EDT Third trimester ([facility]) documented in this encounter [...] this encounter Visit Diagnoses Diagnosis Third trimester ([facility]) state, incidental 34 weeks gestation of ([facility]) H/O pre-eclampsia in prior , currently ([facility]) Diet controlled gestational diabetes mellitus (GDM), antepartum ([facility]) documented in this encounter Care Teams Professor Of Chemical Engineering Relationship Specialty Start Date End Date Cuco Munoz MD [address] [place] [address] PCP - General Family Medicine 06/24/23 documented as of this encounter
--- OUTSIDE RECORDS SUMMARY | 2025-01-20 11:03 | XMS_ITS | Clinical Summary ---
Author Organization [facility] Address [address] [place] [address] Care Team Providers Care Grocery Stock Clerk Name Role Phone Cuco Munoz MD Primary Care Provider [phone] Allergies Active Allergy Reactions Criticality Noted Date Comments Amoxicillin Hives,Rash Low 02/07/2017 Other Reaction(s): hives, Unknown Azithromycin Hives,Rash Low 02/07/2017 Cefaclor Hives,Rash Low 02/07/2017 Clarithromycin Hives,Rash,Unknown Low 02/07/2017 Other Reaction(s): hives Doxycycline Hives,Rash Low 06/24/2023 Sulfa Antibiotics Hives,Rash Low 02/06/2017 Other Reaction(s): hives, Unknown Sulfamethoxazole-Trimetho prim Hives,Rash Low 02/07/2017 Other Reaction(s): hives, Unknown Medications Jdgsnogj-Upw-Ju-FA ( 1 + IRON PO) Active albuterol [...] 08/21/2024 History of pre-eclampsia 08/21/2024 Second trimester ([facility]) 08/21/2024 Estimated Date of Delivery Comme nts Yes 02/16/2025 Based on Ultraso und Encounters Date Type Department Care Team Description 01/19/2025 Travel 01/18/2025 Clinisync Result Encounter [facility] External Department Unsolicited Kermit Holly, DO 01/10/2025 Clinisync Result Encounter [facility]OMS External Department Unsolicited Kermit Holly, DO 01/09/2025 1:40 PM EDT Routine [facility] [address] [place] [phone] Kermit Holly, DO Third trimester ([facility]); 34 weeks gestation of ([facility]); H/O pre-eclampsia in prior , currently ([facility]); Diet controlled gestational diabetes mellitus (GDM), antepartum ([facility]) 01/09/2025 Bamboo flowsheet [facility] [address] [place] [address] [place] [address] Kermit Holly, DO 01/06/2025 Travel 01/04/[address] [facility] [address] [place] [address] Priscila Landry MA 01/03/2025 Clinisync Result Encounter [facility]S External Department Unsolicited Kermit Holly, DO 01/01/2025 Telephone [facility] [address] [place] [address] [place] [address] Priscila Landry MA 12/27/2024 Clinisync Result Encounter [facility]S External Department Unsolicited Kermit Holly, DO 12/27/2024 Clinisync Result Encounter [facility] External Department Unsolicited Kermit Holly, DO 12/25/2024 2:00 PM EDT Routine [facility] [place] [address] [place] [address] Kermit Holly, 32 weeks gestation of ([facility]); Third trimester ([facility]); Gestational diabetes mellitus (GDM), antepartum, gestational diabetes method of control unspecified ([facility]); Elevated glucose tolerance test 12/25/[address] [facility] [address] [place] [address] Kermit Holly, Gestational diabetes mellitus (GDM), antepartum, gestational diabetes method of control unspecified ([facility]); Elevated glucose tolerance test 12/22/2024 Travel 12/13/2024 2:30 PM EDT Routine [facility] [address] [place] [address] Kermit Holly, 30 weeks gestation of ([facility]); Third trimester ([facility]); Gestational diabetes mellitus (GDM), antepartum, gestational diabetes method of control unspecified ([facility]) 12/13/2024 Bamboo flowsheet [facility] [address] [place] [address] Kermit Holly, 12/10/2024 Travel 11/28/2024 1:50 PM EDT Routine [facility] [address] [place] [address] Kermit Holly, Third trimester ([facility]); 28 weeks gestation of ([facility]) 11/28/2024 Bamboo flowsheet [facility] [address] [place] [address] Kermit Holly, 11/25/2024 Travel 11/23/[address] [facility] [address] [place] [address] Keiko Bruce MA 11/23/2024 Clinisync Result Encounter [facility] External Department Unsolicited Kermit Holly, DO 11/16/2024 Clinisync Result Encounter [facility] External Department Unsolicited Kermit Holly, DO 11/07/2024 1:20 PM EDT Routine [facility] [address] [place] [address] [place] [address] Kermit Holly DO Second trimester ([facility]); 25 weeks gestation of ([facility]); Diabetes mellitus screening 11/07/2024 Bamboo flowsheet [facility] [address] [place] [address] Kermit Holly DO 11/05/2024 Travel 10/27/2024 [...] Description 01/22/2025 1:30 PM EDT Routine [facility] [address] [place] [address] [place] [address] Kermit Holly DO [address] [place] [address] [address] [place], [place] [phone] Health Maintenance Due Date Last Done Comments Influenza Vaccine (Season Ended) 2025 Cervical Cancer Screening 09/18/2025 HPV/Cotest 09/18/2025 Pap Smear 09/18/2025 09/18/2024 Procedures Procedure Name Priority Date/Time Associated Diagnosis Comments US OB BPP W NON-STRESS 01/18/2025 8:14 AM EDT US OB BPP W NON-STRESS 01/10/2025 7:01 PM EDT POCT URINALYSIS DIPSTICK Routine 01/09/2025 1:53 PM EDT Third trimester ([facility]) US OB BPP W NON-STRESS 01/03/2025 8:19 PM EDT US OB GROWTH 12/27/2024 7:37 PM EDT US OB BPP W NON-STRESS 12/27/2024 7:37 PM EDT POCT URINALYSIS DIPSTICK Routine 12/25/2024 2:32 PM EDT 32 weeks gestation of ([facility]) POCT URINALYSIS DIPSTICK Routine 12/13/2024 3:07 PM EDT 30 weeks gestation of ([facility]) Third trimester ([facility]) GLUCOSE 1 HOUR Routine 11/23/2024 10:40 AM EDT ALL CBC WITH AUTO DIFF Routine 11/23/2024 10:40 AM EDT TBH UA (CLEAN/CATCH) SHIPFITTERS SUPERVISOR/MICRO IF IND. Routine 11/16/2024 7:27 PM EDT POCT URINALYSIS DIPSTICK Routine 11/07/2024 1:47 PM EDT Second trimester ([facility]) US OB INCOMPLETE ANATOMY 10/27/2024 7:11 PM EDT PAP SMEAR Routine 09/18/2024 12:00 AM EST from Last 3 Months or Most Recently Relevant to Health Maintenance Results * US OB BPP W NON-STRESS (01/18/2025 8:14 AM EDT) Only the most recent of4 resultswithin the time period is included. Anatomical Region Laterality Modality Other 01/18/2025 8:14 AM EDT Narrative 01/18/2025 8:16 [place] [address] Ultrasound Report Signed Patient: LYNNETTE NELSON MR#: [id number] : 1990 Acct:[id number] Age/Sex: 34 / F ADM Date: 01/17/25 Loc: US Attending Dr: Kermit Holly D.O. Ordering Physician: Kermit Holly D.O. Date of Service: 01/17/25 Procedure(s): US OB BPP w non-stress Accession Number(s): [id number] cc: Kermit Holly D.O.; Physician,Non-Staff M.[facility] The [address] [address] Patient Name: LYNNETTE NELSON MRN: [id number] date: 1990 Sex: F Assigned Patient Location: US Current Patient Location: Accession/Order Number: [id number] Exam Date: 01/18/2025 08:13 Report Date: 01/18/2025 08:14 At the request of: KERMIT HOLLY DO Procedure: US OB BPP w non-stress BIOPHYSICAL PROFILE: CLINICAL INFORMATION: GESTATIONAL DIABETES MELLITUS O24.419 COMPARISON: 01/10/2025 There is a single live intrauterine gestation in cephalic presentation. The reported gestational age is 35 weeks 5 days. The heart rate measures 143 beats per minute. FINDINGS: TONE: 1 or more episodes of activity extension and flexion of extremity or opening and closing of the hand [Y] 2/2 GROSS BODY MOVEMENTS: 3 or more discrete body or limb movements [Y] 2/2 BREATHING MOVEMENTS: 1 or more episodes of breathing lasting at least 30 seconds [Y] 2/2 ANABELA: A single deepest vertical pocket of amniotic fluid greater than 2 cm [Y] 2/2 ANABELA: 12.6 cm. This is in low-normal range. Total score: 8/8 US/US OB BPP w non-stress IMPRESSION: NORMAL BIOPHYSICAL PROFILE Impression dictated by: Libia Shrestha M.D. 01/18/2025 8:14 AM Dictation Location: [place] [address] Electronically authenticated by: [id number] Y Date: 01/18/2025 08:14 Dictated By: Libia Shrestha M.D. Signed By: 01/18/25815 DD/ 3 TD/TT: Review Consultant: Procedure Note Radiology, Radiologist, - 01/18/2025 [place] [address] Ultrasound Report Signed Patient: LYNNETTE NELSON RMR#: [id number] : 1990Acct:[id number] Age/Sex: 34 / FADM Date: 01/17/25 Loc: US Attending Dr: Kermit Holly D.O. Ordering Physician: Kermit Holly D.O. Date of Service: 01/17/25 Procedure(s): US OB BPP w non-stress Accession Number(s): [id number] cc: Kermit Holly D.O.; Physician,Non-Staff [place] [facility] [place] [id number] Patient Name: LYNNETTE NELSON MRN: [id number] date: 1990 Sex: F Assigned Patient Location: US Current Patient Location: Accession/Order Number: [id number] Exam Date: 01/18/2025 08:13 Report Date: 01/18/2025 08:14 At the request of: KERMIT HOLLY DO Procedure: US OB BPP w non-stress BIOPHYSICAL PROFILE: CLINICAL INFORMATION: GESTATIONAL DIABETES MELLITUS O24.419 COMPARISON: 01/10/2025 There is a single live intrauterine gestation in cephalic presentation.The reported gestational age is 35 weeks 5 days. The heart ratemeasures 143 beats per minute. FINDINGS: TONE: 1 or more episodes of activity extension and flexion of extremity or opening and closing of the hand [Y] 2/2 GROSS BODY MOVEMENTS: 3 or more discrete body or limb movements [Y] 2/2 BREATHING MOVEMENTS: 1 or more episodes of breathing lastingat least 30 seconds [Y] 2/2 ANABELA: A single deepest vertical pocket of amniotic fluid greater than 2 cm [Y] 2/2 ANABELA: 12.6 cm. This is in low-normal range. Total score: 03/02 US/US OB BPP w non-stress IMPRESSION: NORMAL BIOPHYSICAL PROFILE Impression dictated by: Libia Shrestha M.D. 01/18/2025 8:14 AM Dictation Location: [place] [address] Electronically authenticated by: [id number] Y Date: 508:14 Dictated By: Libia Shrestha M.D. Signed By:01/18/2516 DD/ TD/TT: Review Consultant: us [facility] DO [facility] IMAGING Final Result * POCT [...] PM EDT Narrative 12/27/2024 7:40 [place] [address] Ultrasound Report Signed Patient: LYNNETTE NELSON MR#: [id number] : 1990 Acct:[id number] Age/Sex: 34 / F ADM Date: 12/27/24 Loc: US Attending Dr: Kermit Holly D.O. Ordering Physician: Kermit Holly D.O. Date of Service: 12/27/24 Procedure(s): US OB growth Accession Number(s): [id number] cc: Kermit Holly D.O.; Physician,Non-Staff [place] [facility] [place] [address] Patient Name: LYNNETTE NELSON MRN: [id number] date: 1990 Sex: F Assigned Patient Location: US Current Patient Location: Accession/Order Number: [id number] Exam Date: 12/27/2024 19:33 Report Date: 12/27/2024 [...] Chaudhari M.D. 12/27/2024 7:37 PM Dictation Location: [place] [address] Electronically authenticated by: [id number] Y Date: 12/27/2024 19:37 Dictated By: David Chaudhari D.O. Signed By: 12/27/241939 DD/ 36 TD/TT: Review Consultant: Procedure Note Radiology, Radiologist, - 12/28/2024 [place] [address] Ultrasound Report Signed Patient: LYNNETTE NELSON RMR#: [id number] : 1990Acct:[id number] Age/Sex: 34 / FADM Date: 12/27/24 Loc: US Attending Dr: Kermit Holly D.O. Ordering Physician: Kermit Holly D.O. Date of Service: 12/27/24 Procedure(s): US OB growth Accession Number(s): [id number] cc: Kermit Holly D.O.; Physician,Non-Staff [place] [facility] [place] [address] Patient Name: LYNNETTE NELSON MRN: [id number] date: 1990 Sex: F Assigned Patient Location: US Current Patient Location: Accession/Order Number: [id number] Exam Date: 12/27/2024 19:33 Report Date: 12/27/2024 [...] Chaudhari M.D. 12/27/2024 7:37 PM Dictation Location: [facility] [employer] Electronically authenticated by: [id number] Y Date: 9:37 Dictated By: David Chaudhari D.O. Signed By:12/27/241939 DD/ 36 TD/TT: Review Consultant: us Kermit Elayne DO [facility] IMAG[facility] Final Result * (ABNORMAL) GLUCOSE 1 HOUR (11/23/2024 10:40 AM EDT) GLUCOSE 1 HOUR 191(H) <130 mg/dL [facility] 11/23/2024 10:4 0 AM EDT 11/23/2024 10:42 AM EDT Narrative CLINIS[facility] - 11/23/2024 11:31 AM EDT Kermit Elayne DO LAB BLOOD ORDERABLES Final Resul t [facility] * (ABNORMAL) ALL CBC WITH AUTO DIFF (11/23/2024 10:40 AM EDT) TB WBC 9.0 4.0 - 11.0 10 3/uL TBH TBH RBC 3.58(L) 4.20 - 5.40 10 6/uL TBH TBH HGB 10.0(L) 12.0 - 16.0 g/dL TB TB HCT 30.0(L) 36.0 - 48.0 % TBH TBH MCV 83.8 81.0 - 99.0 fL TBH TBH MCH 27.9 26.7 - 34.0 pg TBH TBH MCHC 33.3 29.9 - 35.2 g/dL TB TBH RDW 13.4 11.0 - 15.0 % [...] EDT Kermit Elayne DO CLIN[facility] Final Result [facility] * [facility]H UA (CLEAN/CATCH) SHIPFITTERS SUPERVISOR/MICRO IF IND. (11/16/2024 7:27 PM EDT) COLOR [...] CLINISYNC - 11/16/2024 8:12 PM EDT Kermit Elayne DO CLINIS[facility]NC Final Result [facility] * US OB INCOMPLETE ANATOMY (10/27/2024 7:11 PM EDT) Anatomical Region Laterality Modality Other 10/27/2024 7:11 PM EDT Narrative 10/27/2024 7:14 [place] [address] Ultrasound Report Signed Patient: LYNNETTE NELSON MR#: [id number] : 1990 Acct:[id number] Age/Sex: 33 / F ADM Date: 10/27/24 Loc: US Attending Dr: Kermit Holly D.O. Ordering Physician: Kermit Holly D.O. Date of Service: 10/27/24 Procedure(s): US OB incomplete anatomy Accession Number(s): [id number] cc: Kermit Holly D.O.; Physician,Non-Staff [place] The [address] [address] Patient Name: LYNNETTE NELSON MRN: [id number] date: 1990 Sex: F Assigned Patient Location: US Current Patient Location: US Accession/Order Number: [id number] Exam Date: 10/27/2024 19:10 Report Date: 10/27/2024 [...] David Chaudhari M.D.10/27/2024 7:11 PM Dictation Location: [place] [address] Electronically authenticated by: [id number] Y Date: 10/27/2024 19:11 Dictated By: David Chaudhari D.O. Signed By: 10/27/241913 DD/ 10 TD/TT: Review Consultant: Procedure Note Radiology, Radiologist, - 10/27/2024 The [place] [id number] Ultrasound Report Signed Patient: LYNNETTE NELSON RMR#: [id number] : 1990Acct:[id number] Age/Sex: 33 / FADM Date: 10/27/24 Loc: US Attending Dr: Kermit Holly D.O. Ordering Physician: Kermit Holly D.O. Date of Service: 10/27/24 Procedure(s): US OB incomplete anatomy Accession Number(s): [id number] cc: Kermit Holly D.O.; Physician,Non-Staff [place] [facility] [place] [address] Patient Name: LYNNETTE NELSON MRN: [id number] date: 1990 Sex: F Assigned Patient Location: US Current Patient Location: US Accession/Order Number: [id number] Exam Date: 10/27/2024 19:10 Report Date: 10/27/2024 [...] David Chaudhari M.D.10/27/2024 7:11 PM Dictation Location: [place] [address] Electronically authenticated by: [id number] Y Date: 9:11 Dictated By: David Chaudhari D.O. Signed By:10/27/241913 DD/ 10 TD/TT: Review Consultant: Kermit Holly DO [facility] IMAG[facility] Final Result * Pap Smear (09/18/2024 12:00 AM EST) Swab Cervical swab / Unknown Loraine OLIVO LAB CYTOLOGY ORDERABLES Final Re sult EXTERNAL LAB from Last 3 Months or Most Recently Relevant to Health Maintenance Insurance [employer] MEDICAID [place] Care Teams Grocery Stock Clerk Relationship Specialty Start Date End Date Cuco Munoz MD [address] [place] [address] PCP - General Family Medicine 06/24/23
--- OUTSIDE RECORDS SUMMARY | 2025-01-20 11:03 | XMS_ITS | Clinical Summary ---
Author Organization [facility] Address [address] [place] [address] Care Team Providers Care Ledge Man Name Role Phone Viry Cortez MD Primary [...] 3:00 AM 02/07/2017 8:37 PM Care Teams Ledge Man Relationship Specialty Start Date End Date Viry Cortez MD [address] [facility] [place] [address] PCP - General 02/07/17
--- OUTSIDE RECORDS SUMMARY | 2025-01-20 11:04 | XMS_ITS | Encounter Summary ---
Author Organization [facility] Address [address] [place] [address] Care Team Providers Care Materials Buyer Name Role Phone Cuco Munoz MD Primary Care Provider [phone] Encounter Details Date Type Department Care Team (Late st Contact Info) Description 01/10/2025 Clinisync Result Encounter [facility] External Department Unsolicited Kermit Holly, DO [address], [facility] Social History Tobacco Use Types Packs/Day [...] Description 01/22/2025 1:30 PM EDT Routine [facility] [address] [place] [phone] Kermit Holly DO [address] [place] [address] [place] [address] documented as of this encounter Procedures Procedure Name Priority Date/Time Associated Diagnosis Comments US OB BPP W NON-STRESS 01/10/2025 7:01 PM EDT documented in this encounter Results * US OB BPP W NON-STRESS (01/10/2025 7:01 PM EDT) Anatomical Region Laterality Modality Other 01/10/2025 7:01 PM EDT Narrative 01/10/2025 7:03 [place] [address] Ultrasound Report Signed Patient: LYNNETTE NELSON MR#: [id number] : 1990 Acct:[id number] Age/Sex: 34 / F ADM Date: 01/10/25 Loc: US Attending Dr: Kermit Holly D.O. Ordering Physician: Kermit Holly D.O. Date of Service: 01/10/25 Procedure(s): US OB BPP w non-stress Accession Number(s): [id number] cc: Kermit Holly D.O.; Physician,Non-Staff M.[place] The [place] [id number] Patient Name: LYNNETTE NELSON MRN: [id number] date: 1990 Sex: F Assigned Patient Location: [facility] Current Patient Location: Accession/Order Number: [id number] Exam Date: 01/10/2025 18:57 Report Date: 01/10/2025 [...] Jordan M.D. 01/10/2025 7:01 PM Dictation Location: [place] [address] Electronically authenticated by: [id number] Y Date: 01/10/2025 19:01 Dictated By: Lavelle Jordan M.D. Signed By: 01/10/251902 DD/ 00 TD/TT: Protection Officer: Procedure Note Radiology, Radiologist, MD - 01/10/2025 [place] [address] Ultrasound Report Signed Patient: LYNNETTE NELSON RMR#: [id number] : 1990Acct:[id number] Age/Sex: 34 / FADM Date: 01/10/25 Loc: US Attending Dr: Kermit Holly D.O. Ordering Physician: Kermit Holly D.O. Date of Service: 01/10/25 Procedure(s): US OB BPP w non-stress Accession Number(s): [id number] cc: Kermit Holly D.O.; Physician,Non-Staff [place] The [address] [id number] Patient Name: LYNNETTE NELSON MRN: [id number] date: 1990 Sex: F Assigned Patient Location: [facility] Current Patient Location: Accession/Order Number: [id number] Exam Date: 01/10/2025 18:57 Report Date: 01/10/2025 [...] Jordan M.D. 01/10/2025 7:01 PM Dictation Location: [place] [address] Electronically authenticated by: [id number] Y Date: 9:01 Dictated By: Lavelle Jordan M.D. Signed By:01/10/251902 DD/ 00 TD/TT: Protection Officer: us Kermit Elayne DO [facility] IMAGING Final Result documented in this encounter Visit Diagnoses Not on filedocumented in this encounter Care Teams Materials Buyer Relationship Specialty Start Date End Date Cuoc Munoz MD [address] [place] [address] PCP - General Family Medicine 06/24/23 documented as of this encounter
--- OUTSIDE RECORDS SUMMARY | 2025-01-20 11:04 | XMS_ITS | Encounter Summary ---
Author Organization [facility] Address [address] [place] [address] Care Team Providers Care Plastic Parts Fabricator Name Role Phone Cuco Munoz MD Primary Care Provider [phone] Encounter Details Date Type Department Care Team [...] BCP OB [address] [place] [address] Eric Holly, DO [address] [place] [id number] documented as of this encounter Visit Diagnoses Not on filedocumented in this encounter Care Teams Plastic Parts Fabricator Relationship Specialty Start Date End Date Cuco Munoz MD [address] [place] [address] PCP - General Family Medicine 06/24/23 documented as of this encounter
--- OUTSIDE RECORDS SUMMARY | 2025-01-20 11:04 | XMS_ITS | CCD ---
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 detected N [facility] GARDNERELLA VAGINALIS 0 [facility] GARDNERELLA VAGINALIS Not detected N [facility] MEGASPHAERA (TYPES 1, 2) 0 [facility] MEGASPHAERA (TYPES 1, 2) Not detected [facility] MYCOPLASMA GENITALIUM 0 [facility] MYCOPLASMA GENITALIUM Not detected [facility] NEISSERIA GONORRHOEAE 0 [facility] NEISSERIA GONORRHOEAE Not detected N [facility] TRICHOMONAS VAGINALIS 0 [facility] TRICHOMONAS VAGINALIS Not detected N [facility] Urinalysis macro (dipstick) panel (U)on 09-18-2024 Bilirubin, UA Negative Negative - 4(70) +++ mg/dL [facility] Blood, UA Negative Negative - 50 Oscar/mcL [facility] Clarity, UA Clear [facility] Color, UA Yellow [facility] Glucose, UA Negative Negative - 1999(110) ++++ mg/dL [facility] Interpretation and review of laboratory results Normal [facility] Ketones, UA Negative Negative - 160(16) ++++ mg/dL [facility] Leukocytes, UA Negative Negative - 500+++ Mike/mcL [facility] Nitrite, UA Negative Negative - Positive [facility] pH, UA 6.5 5 - 9 [facility] Protein, UA Negative Negative - 2000(20) ++++ mg/dL [facility] Spec Grav, UA 1.025 1 - 1.03 [facility] Urobilinogen, UA 1.0 0.2 - 12 mg/dL [facility] AFP, SERUM, OPEN SPINA BIFID Aon 09-08-2024 AFP MOM 1.72 . [facility] AFP VALUE 54.2 ng/mL . [facility] COMMENT: Comment . [facility] Comment on above: Oksana Blank , Ph.D., [facility] Director References: Available Upon Request. Multiples Of Median Cutoffs For AFP Elevations Grant 2.5 Black 2.8 IDD 2.0 Twins 4.5 Abbreviation Definitions IDD - Insulin Dep Diabetes OSBR - Open Spina Bifida Risk For further inquiries contact [employer] [facility] at [phone]. This test was developed and its performance characteristics determined by [employer]. It has not been cleared or approved by the Food and Drug Administration. Performed at: [facility] [address] [place], [place] [id number] Sec Accountant: Christ Rodas [facility], Phone: [phone] GEST. AGE ON COLLECTION DATE 16.7 . weeks [facility] GESTAT. AGE BASED ON Ultrasound . [facility] Comment on above: 14.4 on 08/21/2024 Recalculations are not recommended when gestational dating by LMP and ultrasound are within 10 days. INSULIN DEP DIABETES No . [facility] INTERPRETATION Comment . [facility] Comment on above: Interpretation: Scre [...] Customer Services to discuss available options. The [employer] recommends amniocentesis be offered to women age 35 and older. [age] [facility] MULTIPLE GESTATION No . [facility] OSBR RISK 1 IN 1551 . [facility] RACE . [facility] RESULTS Report . [facility] TEST RESULTS: Negative . [facility] WEIGHT 187 . lbs [facility] N N ULTRASOUND [id number] 3 14 N 1 187 N N N N N White/ [facility] Urinalysis macro (dipstick) panel (U)on 08-21-2024 Bilirubin, UA Negative Negative - 4(70) +++ mg/dL [facility] Blood, UA Negative Negative - 50 Oscar/mcL [facility] Clarity, UA Clear [facility] Color, UA Yellow [facility] Glucose, UA Negative Negative - 2000(110) ++++ mg/dL [facility] Interpretation and review of laboratory results Normal [facility] Ketones, UA Negative Negative - 160(16) ++++ mg/dL [facility] Leukocytes, UA Negative Negative - 500+++ Mike/mcL [facility] Nitrite, UA Negative Negative - Positive [facility] pH, UA 5.5 5 - 9 [facility] Protein, UA Negative Negative - 2000(20) ++++ mg/dL [facility] Spec Grav, UA 1.015 1 - 1.03 [facility] Urobilinogen, UA 0.2 0.2 - 12 mg/dL [facility] ALL CBC WITH AUTO DIFFon BASOPHILS ABSOLUTE AUTO 0.1 [facility] Basophils/100 WBC (Bld) 0.5 % 0.2 - 2.0 % [facility] Eosinophils/100 WBC (Bld) 1.6 % 0.9 - 7.0 % [facility] Erythrocyte distribution width (RBC) [Ratio] 14 % 11.0 - 15.0 % [facility] Hematocrit (Bld) [Volume fraction] 35.4 % Low 36.0 - 48.0 % [facility] Hemoglobin (Bld) [Mass/Vol] 12.2 g/dL 12.0 - 16.0 g/dL [facility] IMMATURE GRANULOCYTES ABS AUTO 0.05 High [facility] Immature granulocytes/100 WBC (Bld) 0.4 % 0.0 - 0.5 % [facility] Interpretation and review of laboratory results Abnormal [facility] LYMPHOCYTES ABSOLUTE AUTO 1.8 [facility] Lymphocytes/100 WBC (Bld) 14.4 % Low 20.5 - 60.0 % [facility] MCH (RBC) [Entitic mass] 31 pg 26.7 - 34.0 pg [facility] MCHC (RBC) [Mass/Vol] 34.5 g/dL 29.9 - 35.2 g/dL [facility] MCV (RBC) [Entitic vol] 90.1 fL 81.0 - 99.0 fL [facility] MONOCYTES ABSOLUTE AUTO 0.8 [facility] Monocytes/100 WBC (Bld) 5.9 % 1.7 - 12.0 % [facility] NEUTROPHILS ABSOLUTE AUTO 9.8 High [facility] Neutrophils/100 WBC (Bld) 77.2 % High 43.0 - 75.0 % [facility] Platelet mean volume (Bld) [Entitic vol] 10.3 fL 9.5 - 13.5 fL [facility] TB EO # 0.2 [facility] TB PLT 338 [facility] RBC 3.93 Low [facility] WBC 12.7 High [facility] HCG ( test) Ql (U)o n 07-21-2024 Interpretation and review of laboratory results Abnormal [facility] Preg Test, Ur Positive Negative [facility] Urinalysis macro (dipstick) panel (U)on 07-21-2024 Bilirubin, UA Negative Negative - 4(70) +++ mg/dL [facility] Blood, UA Negative Negative - 50 Oscar/mcL [facility] Clarity, UA Clear [facility] Color, UA Yellow [facility] Glucose, UA Negative Negative - 2000(110) ++++ mg/dL [facility] Interpretation and review of laboratory results Normal [facility] Ketones, UA Negative Negative - 160(16) ++++ mg/dL [facility] Leukocytes, UA Negative Negative - 500+++ Mike/mcL [facility] Nitrite, UA Negative Negative - Positive [facility] pH, UA 6.5 5 - 9 [facility] Protein, UA Negative Negative - 2000(20) ++++ mg/dL [facility] Spec Grav, UA 1.015 1 - 1.03 [facility] Urobilinogen, UA 0.2 0.2 - 12 mg/dL [facility] No Panel InformationOrdered By: Mayte Joiner on 06-08-2024 Quick Strep (POC) [facility] No Panel InformationOrdered By: Ketty Jones on 04-21-2024 Quick Strep (POC) [facility] Quick Strep (POC) [facility] No Panel InformationOrdered By: Chaz Miller on 12-22-2023 Quick Strep (POC) [facility] US PELVISon 08-25-2022 US PELVIS EXAMINATION: [...] REMA OLIVAS Date: 2022-08-25 07:25 Normal [facility] CHLAMYDIA/GONOCOCCUS JESS (SW AB/URINE/PAPon 08-23-2022 Chlamydia trachomatis, JESS Negative Normal Negative [facility] Comment on above: Performed By: #### C BC #### [facility] [address] [place] [address] Dr. Babar Marks Neisseria gonorrhoeae, JESS Negative Normal Negative [facility] Comment on above: Performed By: #### C BC #### [facility] [address] [place] [address] Dr. Babar Marks VAGINITIS/VAGINOSIS DNA PROB Tam 08-21-2022 Kelsey species Negative Normal Negative [facility] Comment on above: Performed By: #### V AGINT #### [facility] [address] [place] [address] Dr. Babar Marks Gardnerella vaginalis Negative Normal Negative [facility] Comment on above: Performed By: #### V AGINT #### [facility] [address] [place] [address] Dr. Babar Marks Trichomonas vaginalis Negative Normal Negative [facility] Comment on above: Performed By: #### V AGINT #### [facility] [address] [place] [address] Dr. Babar Marks CBC AUTO DIFFon 07-30-2022 BASO # 0.1 103/ul Normal 0.0-0.1 [facility] Comment on above: Performed By: #### C BC #### [facility] [address] [place] [address] Dr. Babar Marks Basophils/100 WBC (Bld) 0.8 % Normal 0.2-2.0 [facility] Comment on above: Performed By: #### C BC #### [facility] [address] [place] [address] Dr. Babar Marks EO # 0.1 103/ul Normal 0.0-0.7 [facility] Comment on above: Performed By: #### C BC #### [facility] [address] [place] [address] Dr. Babar Marks Eosinophils/100 WBC (Bld) 1.4 % Normal 0.9-7.0 [facility] Comment on above: Performed By: #### C BC #### [facility] [address] [place] [address] Dr. Babar Marks Erythrocyte distribution width (RBC) [Ratio] 13.7 % Normal 11.0-15.0 [facility] Comment on above: Performed By: #### C BC #### [facility] [address] [place] [address] Dr. Babar Marks Hematocrit (Bld) [Volume fraction] 36.9 % Normal 36.0-48.0 [facility] Comment on above: Performed By: #### C BC #### [facility] [address] [place] [address] Dr. Babar Marks Hemoglobin (Bld) [Mass/Vol] 12.4 g/dL Normal 12.0-16.0 [facility] Comment on above: Performed By: #### C BC #### [facility] [address] [place] [address] Dr. Babar Marks IG # 0.03 10e3/ul Normal 0.00-0.03 [facility] Comment on above: Performed By: #### C BC #### [facility] [address] [place] [address] Dr. Babar Marks IG % 0.3 % Normal 0.0-0.5 [facility] Comment on above: Performed By: #### C BC #### [facility] [address] [place] [address] Dr. Babar Marks LYMPH # 1.7 103/ul Normal 1.2-3.8 [facility] Comment on above: Performed By: #### C BC #### [facility] [address] [place] [address] Dr. Babar Marks Lymphocytes/100 WBC (Bld) 18.1 % Critically low 20.5-60.0 [facility] Comment on above: Performed By: #### C BC #### [facility] [address] [place] [address] Dr. Babar Marks MANUAL DIFF REQ NO Normal [facility] Comment on above: Performed By: #### C BC #### [facility] [address] [place] [address] Dr. Babar Marks MCH (RBC) [Entitic mass] 29.5 pg Normal 26.7-34.0 [facility] Comment on above: Performed By: #### C BC #### [facility] [address] [address] [address] Babar Marks MCHC (RBC) [Mass/Vol] 33.6 g/dL Normal 29.9-35.2 [facility] Comment on above: Performed By: #### C BC #### [facility] [address] [address] [address] Babar Marks MCV (RBC) [Entitic vol] 87.9 fL Normal 81.0-99.0 [facility] Comment on above: Performed By: #### C BC #### [facility] [address] [address] [address] Babar Marks MONO # 0.6 103/ul Normal 0.3-0.8 [facility] Comment on above: Performed By: #### C BC #### [facility] [address] [address] [address] Babar Marks Monocytes/100 WBC (Bld) 6.5 % Normal 1.7-12.0 [facility] Comment on above: Performed By: #### C BC #### [facility] [address] [address] [address] Babar Marks NEUT # 6.7 103/ul Critically high 1.4-6.5 [facility] Comment on above: Performed By: #### C BC #### [facility] [address] [address] [address] Babar Marks Neutrophils/100 WBC (Bld) 72.9 % Normal 43.0-75.0 [facility] Comment on above: Performed By: #### C BC #### [facility] [address] [address] [address] Babar Marks Platelet mean volume (Bld) [Entitic vol] 10.1 fL Normal 9.5-13.5 [facility] Comment on above: Performed By: #### C BC #### [facility] [address] [address] [address] Babar Marks PLT 393 103/ul Normal 150-450 [facility] Comment on above: Performed By: #### C BC #### [facility] [address] [place] [address] Dr. Babar Marks RBC 4.20 106/ul Normal 4.20-5.40 [facility] Comment on above: Performed By: #### C BC #### [facility] [address] [place] [address] Dr. Babar Marks WBC 9.2 103/ul Normal 4.0-11.0 [facility] Comment on above: Performed By: #### C BC #### [facility] [address] [place] [address] Dr. Babar Marks ER URINE PROFILEon 3 Bilirubin Ql (U) Negative Normal NEGATIVE [facility] Comment on above: Performed By: #### E RUR #### [facility] [address] [place] [address] Dr. Babar Marks Clarity (U) CLEAR Normal CLEAR [facility] Comment on above: Performed By: #### E RUR #### [facility] [address] [place] [address] Dr. Babar Marks Color (U) LT. YELLOW Normal YELLOW [facility] Comment on above: Performed By: #### E RUR #### [facility] [address] [place] [address] Dr. Babar Marks ERUAHD A micrscopic examina tion will be performed if indicated. Normal [facility] Comment on above: Performed By: #### E RUR #### [facility] [address] [place] [address] Dr. Babar Marks Glucose Ql (U) Negative Normal NEGATIVE [facility] Comment on above: Performed By: #### E RUR #### [facility] [address] [place] [address] Dr. Babar Marks Hemoglobin Ql (U) Negative Normal NEGATIVE [facility] [place] Comment on above: Performed By: #### E RUR #### [facility] [address] [place] [address] Dr. Babar Marks Ketones Ql (U) Negative Normal NEGATIVE [facility] Comment on above: Performed By: #### E RUR #### [facility] [address] [place] [address] Dr. Babar Marks LEUKOCYTES Negative Normal NEGATIVE [facility] Comment on above: Performed By: #### E RUR #### [facility] [address] [place] [address] Dr. Babar Marks Nitrite Ql (U) Negative Normal NEGATIVE [facility] Comment on above: Performed By: #### E RUR #### [facility] [address] [place] [address] Dr. Babar Marks pH (U) 6.5 [pH] Normal 5-9 [facility] Comment on above: Performed By: #### E RUR #### [facility] [address] [place] [address] Dr. Babar Marks SPEC GRAVITY 1.015 Normal 1.005-<=1.0 25 [facility] Comment on above: Performed By: #### E RUR #### [facility] [address] [place] [address] Dr. Babar Marks UA PROTEIN Negative Normal NEGATIVE/ TRACE [facility] Comment on above: Performed By: #### E RUR #### [facility] [address] [place] [address] Dr. Babar Marks UR MICRO IND NOT INDICATED Normal [facility] Comment on above: Performed By: #### E RUR #### [facility] [address] [place] [address] Dr. Babar Marks Urobilinogen Qn (U) 0.2 {Courtney'U}/dL Normal 0.2 - 1. 0 [facility] Comment on above: Performed By: #### E RUR #### [facility] [address] [place] [address] Dr. Babar Marks LIPASEon 07-30-2022 Lipase [Catalytic activity/Vol] 141.0 U/L Normal 73.0-393.0 [facility] Comment on above: Performed By: #### L IPA, CMP #### [facility] [address] [place] [address] Dr. Babar Marks PREG HCG QUALon 07-30-2022 , QUAL Negative Normal NEGATIVE [facility] Comment on above: Performed By: #### C BC #### [facility] [address] [place] [address] Dr. Babar Marks PROF 14(COMP METB)on 023 Albumin [Mass/Vol] 3.3 g/dL Critically low 3.4-5.0 [facility] Comment on above: Performed By: #### C BC #### [facility] [address] [place] [address] Dr. Babar Marks Albumin/Globulin [Mass ratio] 0.8 {ratio} Normal [facility] Comment on above: Performed By: #### C BC #### [facility] [address] [place] [address] Dr. Babar Marks ALP [Catalytic activity/Vol] 44 U/L Critically low 46-116 [facility] Comment on above: Performed By: #### C BC #### [facility] [address] [place] [address] Dr. Babar Marks ALT [Catalytic activity/Vol] 17 U/L Normal 14-59 [facility] Comment on above: Performed By: #### C BC #### [facility] [address] [place] [address] Dr. Babar Marks Anion gap [Moles/Vol] 11.0 mmol/L Normal [facility] Comment on above: Performed By: #### C BC #### [facility] [address] [place] [address] Dr. Babar Marks AST [Catalytic activity/Vol] 13 U/L Critically low 15-37 [facility] Comment on above: Performed By: #### C BC #### [facility] [address] [place] [address] Dr. Babar Marks Bilirubin [Mass/Vol] 0.3 mg/dL Normal 0.2-1.0 [facility] Comment on above: Performed By: #### C BC #### [facility] [address] [place] [address] Dr. Babar Marks Calcium [Mass/Vol] 8.6 mg/dL Normal 8.5-10.1 [facility] Comment on above: Performed By: #### C BC #### [facility] [address] [place] [address] Dr. Babar Marks Chloride [Moles/Vol] 107 mmol/L Normal 98-107 [facility] Comment on above: Performed By: #### C BC #### [facility] [address] [place] [address] Dr. Babar Marks CO2 [Moles/Vol] 29.5 mmol/L Normal 21.0-32.0 [facility] Comment on above: Performed By: #### C BC #### [facility] [address] [place] [address] Dr. Babar Marks Creatinine [Mass/Vol] 0.71 mg/dL Normal 0.55-1.02 [facility] Comment on above: Performed By: #### C BC #### [facility] [address] [place] [address] Dr. Babar Marks EGFR-AF CENTRAL AFRICAN >60 Normal >=60 [facility] Comment on above: Performed By: #### C BC #### [facility] [address] [place] [address] Dr. Babar Marks EGFR-NON AF CENTRAL AFRICAN >60 Normal >=60 [facility] Comment on above: Performed By: #### C BC #### [facility] [address] [place] [address] Dr. Babar Marks Globulin (S) [Mass/Vol] 4.0 g/dL Normal [facility] Comment on above: Performed By: #### C BC #### [facility] [address] [place] [address] Dr. Babar Marks Glucose [Mass/Vol] 81 mg/dL Normal 74-106 [facility] Comment on above: Performed By: #### C BC #### [facility] [address] [place] [address] Dr. Babar Marks Potassium [Moles/Vol] 3.5 mmol/L Normal 3.5-5.1 [facility] Comment on above: Performed By: #### C BC #### [facility] [address] [place], [place] [address] Dr. Babar Marks Protein [Mass/Vol] 7.3 g/dL Normal 6.4-8.2 [facility] Comment on above: Performed By: #### C BC #### [facility] [address] [place], [place] [address] Dr. Babar Marks Sodium [Moles/Vol] 144 mmol/L Normal 136-145 [facility] Comment on above: Performed By: #### C BC #### [facility] [address] [place], [place] [address] Dr. Babar Marks Urea nitrogen [Mass/Vol] 14.0 mg/dL Normal 7.0-18.0 [facility] Comment on above: Performed By: #### C BC #### [facility] [address] [address] [address] Babar Marks Urea nitrogen/Creatinine [Mass ratio] 19.7 mg/mg Normal [facility] Comment on above: Performed By: #### C BC #### [facility] [address] [place], [place] [address] Dr. Babar Marks XR ABD FLAT UP_PA [...] ARRIOLA Date: 2022-07-30 18:11 Normal [facility] PAP ACOG PANEL 2: 30 to 65on 03-18-2022 . . Normal [facility] Comment on above: Result Comment: Perf ormed at: WB Performed By: #### [id number] #### [facility] [address] [address] [address] Babar Marks Age Gdln ACOG Testing 30-65 Normal [facility] Comment on above: Performed By: #### [id number] #### [facility] [address] [address] [address] Babar Marks DIAGNOSIS: Comment Normal [facility] Comment on above: Result Comment: NEGA TIVE FOR INTRAEPITHELIAL LESION OR MALIGNANCY. Performed at: WB Performed By: #### [id number] #### [facility] [address] [address] [address] Babar Marks HPV Aptima Positive Abnormal Negative [facility] Comment on above: Result Comment: This nucleic acid amplification test detects fourteen high-risk HPV types (16,18,31,33,35,39,45,51,52,56,58,59,66,68) without differentiation. Performed at: =G Performed By: #### 4 [id number] #### [facility] [address] [address] [address] Babar Marks HPV Genotype 16 Negative Normal Negative [facility] Comment on above: Result Comment: Perf ormed at: =G Performed By: #### [id number] #### [facility] [address] [address] [address] Babar Marks HPV Genotype 18,45 Negative Normal Negative [facility] Comment on above: Result Comment: Perf ormed at: =G Performed By: #### 4 [id number] #### [facility] [address] [address] [address] Babar Marks Methodology: Comment Normal [facility] Comment on above: Result Comment: This liquid based ThinPrep(R) pap test was screened with the use of an image guided system. Performed at: WB Performed By: #### [id number] #### [facility] [address] [place] [address] Dr. Babar Marks Note: Comment Normal [facility] Comment on above: Result Comment: The Pap smear is a screening test designed to aid in the detection of premalignant and malignant conditions of the uterine cervix. It is not a diagnostic procedure and should not be used as the sole means of detecting cervical cancer. Both false-positive and false-negative reports do occur. . Performed at: WB Performed By: #### [id number] #### [facility] [address] [place] [address] Dr. Babar Marks Performed by: Comment Normal [facility] Comment on above: Result Comment: Marry Billy, Quality Control Engineering Technician (ASCP) Performed at: WB Performed By: #### [id number] #### [facility] [address] [place] [address] Dr. Babar Marks Specimen adequacy: Comment Normal [facility] Comment on above: Result Comment: Sati sfactory for evaluation. Endocervical and/or squamous metaplastic cells (endocervical component) are present. Performed at: WB Performed By: #### 4 [id number] #### [facility] [address] [place] [address] Dr. Babar Marks CHLAMYDIA/GONOCOCCUS JESS (SW AB/URINE/PAPon 03-14-2022 Chlamydia trachomatis, JESS Negative Normal Negative [facility] Comment on above: Performed By: #### C T/NGNA #### [facility] [address] [place] [address] Dr. Babar Marks Neisseria gonorrhoeae, JESS Negative Normal Negative [facility] Comment on above: Performed By: #### C T/NGNA #### [facility] [address] [place] [address] Dr. Babar Marks VAGINITIS/VAGINOSIS DNA PROB Tam 03-14-2022 Kelsey species Negative Normal Negative [facility] Comment on above: Performed By: #### V AGINT #### [facility] [address] [place] [address] Dr. Babar Marks Gardnerella vaginalis Negative Normal Negative [facility] Comment on above: Performed By: #### V AGINT #### [facility] [address] [place], [place] [address] Dr. Babar Marks Trichomonas vaginalis Negative Normal Negative [facility] Comment on above: Performed By: #### V AGINT #### [facility] [address] [place], [place] [address] Dr. Babar Marks XR CHEST 2 Von 11-23-2021 XR CHEST 2 V EXAM: XR CHEST 2 V COMPARISON: 02/06/2017 CLINICAL INDICATION: Cough. FINDINGS: The cardiomediastinal silhouette is within normal limits. No focal consolidation. No pleural effusion. No pneumothorax. IMPRESSION: No radiographic evidence of acute cardiopulmonary abnormality. Electronically authenticated by: DANIELA ZENG Date: 2021-11-23 17:05 Normal [facility] Discharge Summaryon 02-08-20 17 HIM IP Note OR Social Media Coordinator Normal [facility] Drug Scr, Abuse, Uron 2016 Amphetamine(s),Ur Negative Normal NEG [facility] Comment on above: Result Comment: (Pos itive cutoff 1000 ng/mL) Performed By: #### U AMIC, MARLEEN ####[facility] Center[facility]av[facility] [address] [place] [address] Barbiturate(s),Ur Negative Normal NEG [facility] Comment on above: Result Comment: (Pos itive cutoff 200 ng/mL) Performed By: #### U AMIC, MARLEEN ####[facility] A [address] [place] [address] Base excess Negative Normal NEG [facility] Comment on above: Result Comment: (Pos itive cutoff 300 ng/mL) Performed By: #### U AMIC, MARLEEN ####[facility] [address] [place] [address] Benzodiazepine(s) Negative Normal NEG [facility] Comment on above: Result Comment: (Pos itive cutoff 200 ng/mL) Performed By: #### U AMIC, MARLEEN ####[employer] [address] [place] [address] Cannabinoid(s),Ur Negative Normal NEG [facility] Comment on above: Result Comment: (Pos itive cutoff 50 ng/mL) Performed By: #### U AMIC MARLEEN ####[address] [address] Interpretive Info Assay provides medic al screening only. The absence of expected drug(s) and/or Normal [facility] Comment on above: Result Comment: meta bolite(s) may indicate diluted or adulterated urine, limitations of testing or timing of collection.Testing for legal purposes should be confirmed by another method. To request confirmation of test result, please call the lab within 7 days of sample submission.[address] [address] Performed By: #### U AMIC MARLEEN ####[address] [address] Opiate(s), Ur Positive Abnormal NEG [facility] Comment on above: Result Comment: (Pos itive cutoff 300 ng/mL) Performed By: #### U AMIC MARLEEN ####[address] [address] Oxycodone, Urine Negative Normal NEG [facility] Comment on above: Result Comment: (Pos itive cutoff 100 ng/mL) Performed By: #### U AMIC, MARLEEN ####[address] [address] Phencyclidine, Ur Negative Normal NEG [facility] Comment on above: Result Comment: (Pos itive cutoff 25 ng/mL) Performed By: #### U AMIC, MARLEEN ####[address] [address] Urine, methadone presence Negative Normal NEG [facility] Comment on above: Result Comment: (Pos itive cutoff 300 ng/mL) Performed By: #### U AMIC, MARLEEN ####[address] [place] [address] Buprenorphrine, Ur NOT REPORTED Normal NEG [facility] Comment on above: Performed By: #### U RICHI, MARLEEN ####[facility] Cent[facility] [address] [place] [address] MDMA, Urine NOT REPORTED Normal NEG [facility] Comment on above: Performed By: #### U RICHI, MARLEEN ####[facility] [address] [place] [address] Methamphetamine, Ur NOT REPORTED Normal NEG [facility] Comment on above: Performed By: #### U RICHI, MARLEEN ####[address] [address] Propoxyphene,Urine NOT REPORTED Normal NEG [facility] Comment on above: Performed By: #### U RICHI, MARLEEN ####[facility] [address] [place] [address] Urine, tricyclic antidepressants NOT REPORTED Normal NEG [facility] Comment on above: Performed By: #### U RICHI, MARLEEN ####[address] [address] ED Noteon 02-07-2017 HIM IP Note OR Social Media Coordinator Normal [facility] HIM IP Note OR Social Media Coordinator Normal [facility] ED Provider Noteon 7 HIM IP Note OR Social Media Coordinator Normal [facility] Ethanol Alcoholon 02-07-2017 Ethanol mg/dL Normal <10 [facility] Comment on above: Performed By: #### A LCB ####[address] [address] Ethanol percent <0.010 Normal [facility] Comment on above: Result Comment: [facility] [address] [facility] [place] [address] Performed By: #### A LCB ####[address] [place], [place] [id number] History and Physicalon 02-07 HIM IP Note OR Social Media Coordinator Normal [facility] UA w reflex C&Son 02-07-2017 Reflex Culture? URINE CULTURE REFLEXED Normal [facility] Comment on above: Performed By: #### P T/INR, PTT ####[address] [place] [address] Urine, crystals in sediment NONE SEEN Normal NONE SEEN [facility] Comment on above: Performed By: #### P T/INR, PTT ####[address] [place] [address] Urine, bacteria in sediment Negative Normal [facility] Comment on above: Performed By: #### P T/INR, PTT ####[address] [place] [address] Urine, mucus presence in sediment Negative Normal NEGATIVE [facility] Comment on above: Performed By: #### P T/INR, PTT ####[address] [place] [address] Urine, casts in sediment NONE SEEN Normal NONE SEEN [facility] Comment on above: Performed By: #### P T/INR, PTT ####[address] [place] [address] Urine, epithelial cells in sediment Negative Normal NEGATIVE [facility] Comment on above: Performed By: #### P T/INR, PTT ####[address] [place] [address] Erythrocytes (RBC) 0-4/HPF Normal NONE SEEN [facility] Comment on above: Performed By: #### P T/INR, PTT ####[address] [address] [place] [address] WBC (Leukocytes) NONE SEEN Normal NONE SEEN [facility] Comment on above: Performed By: #### P T/INR, PTT ####[address] [place] [address] Urine, leukocyte esterase presence Negative Normal NEGATIVE [facility] Comment on above: Performed By: #### P T/INR, PTT ####[address] [place] [address] Urine, nitrite presence Negative Normal NEGATIVE [facility] Comment on above: Performed By: #### P T/INR, PTT ####[address] [address] [place] [address] Urobilinogen, Dipstick 0.2 Normal 0.2 - 1.0 [facility] Comment on above: Performed By: #### P T/INR, PTT ####[address] [place] [address] Protein, Qual Negative Normal NEGATIVE [facility] Comment on above: Performed By: #### P T/INR, PTT ####[address] [address] [place] [address] Urine, pH 7.0 [pH] Normal 5.0 - 9.0 [facility] Comment on above: Performed By: #### P T/INR, PTT ####[address] [place] [address] Blood, Dipstick TRACE Abnormal NEGATIVE [facility] Comment on above: Performed By: #### P T/INR, PTT ####[address] [address] [place] [address] Urine, specific gravity 1.015 Normal 1.005 - 1.030 [facility] Comment on above: Performed By: #### P T/INR, PTT ####[address] [place] [address] Ketone, Dipstick Negative Normal NEGATIVE [facility] Comment on above: Performed By: #### P T/INR, PTT ####[address] [place] [address] Bilirubin (direct) Negative Normal NEGATIVE [facility] Comment on above: Performed By: #### P T/INR, PTT ####[address] [place] [address] Glucose mass conc Negative Normal NEGATIVE [facility] Comment on above: Performed By: #### P T/INR, PTT ####[address] [place] [address] Urine, character CLEAR Normal CLEAR [facility] Comment on above: Performed By: #### P T/INR, PTT ####[address] [place] [address] Urine, color YELLOW Normal [facility] Comment on above: Performed By: #### P T/INR, PTT ####[address] [place] [address] Urinalysis w/ Microon 2016 ----- Normal [facility] Comment on above: Performed By: #### U AMIC, MARLEEN ####[facility] [address] [place] [address] Acetaminophen mass conc Negative Normal NEG [facility] Comment on above: Performed By: #### U AMIC, MARLEEN ####[address] [place] [address] Bilirubin (direct) Negative Normal NEG [facility] Comment on above: Performed By: #### U AMIC, MARLEEN ####[facility] [address] [place] [address] Hemoglobin mass conc (Bld) LARGE Abnormal NEG [facility] Comment on above: Performed By: #### U AMIC, MARLEEN ####[address] [place] [address] Nitrite,Ur Negative Normal NEG [facility] Comment on above: Performed By: #### U AMIC, MARLEEN ####[facility] [address] [place] [address] Turbidity CLEAR Normal CLEAR [facility] Comment on above: Performed By: #### U AMIC, MARLEEN ####[address] [address] Urine WBC's 0 TO 2 Normal 0-5 [facility] Comment on above: Performed By: #### U AMIC, MARLEEN ####[address] [address] Urine, casts in sediment 0 TO 2 HYALINE Normal 0-8 [facility] Comment on above: Result Comment: Refe rence range defined for non-centrifuged specimen. Performed By: #### U AMIC, MARLEEN ####[address] [place] [address] Urine, color YELLOW Normal YEL [facility] Comment on above: Performed By: #### U AMIC, MARLEEN ####[facility] [address] [place] [address] Urine, epithelial cells in sediment 0 TO 2 Normal 0-5 [facility] Comment on above: Result Comment: [id number] [place] [address] Performed By: #### U AMIC, MARLEEN ####[address] [address] Urine, erythrocytes 2 TO 5 Normal 0-4 [facility] Comment on above: Result Comment: Refe rence range defined for non-centrifuged specimen. Performed By: #### U RICHI, MARLEEN ####[address] [place] [address] Urine, glucose presence Negative Normal NEG [facility] Comment on above: Performed By: #### U RICHI, MARLEEN ####[address] [address] Urine, leukocyte esterase presence Negative Normal NEG [facility] Comment on above: Performed By: #### U RADHA STODDARDU ####[address] [address] Urine, pH 6.0 [pH] Normal 5.0-8.0 [facility] Comment on above: Performed By: #### U RADHA STODDARDU ####[address] [address] Urine, protein presence Negative Normal NEG [facility] Comment on above: Performed By: #### U RADHA STODDARDU ####[address] [address] Urine, specific gravity 1.013 Normal 1.005-1.030 [facility] Comment on above: Performed By: #### U RICHI, MARLEEN ####[address] [place] [address] Urobilinogen,Ur Normal Normal NORM [facility] Comment on above: Performed By: #### U AMIC, MARLEEN ####[address] [address] Epithelial, Renal NOT REPORTED Normal 0 [facility] Comment on above: Performed By: #### U AMICruz MARLEEN ####[address] [place] [address] Mucus Strands NOT REPORTED Normal NONE [facility] Comment on above: Performed By: #### U AMIC, MRALEEN ####[address] [place] [address] Other Observations NOT REPORTED Normal NREQ [facility] Comment on above: Performed By: #### U AMIC, MARLEEN ####[facility] [address] [place] [address] Trichomonas NOT REPORTED Normal NONE [facility] Comment on above: Performed By: #### U AMIC, MARLEEN ####[facility] Cent[facility] [address] [place] [address] Urine, amorphous sediment presence in sediment NOT REPORTED Normal NONE [facility] Comment on above: Performed By: #### U AMIC, MARLEEN ####[facility] [address] [place] [address] Urine, bacteria in sediment NOT REPORTED Normal NONE [facility] Comment on above: Performed By: #### U AMIC, MARLEEN ####[facility] [address] [place] [address] Urine, crystals in sediment NOT REPORTED Normal NONE [facility] Comment on above: Performed By: #### U AMIC, MARLEEN ####[facility] [address]ib[address] [place] [address] Urine, yeast presence in sediment NOT REPORTED Normal NONE [facility] Comment on above: Performed By: #### U AMIC, MARLEEN ####[facility] A [address] [place] [address] XR CHEST PA OR AP (1 VIEW)on [...] injury.Report electronically signed by: Dr. Chilo Fernandez [facility] XR SHOULDER RTon 02-07-2017 XR [...] electronically signed by: Dr. Chilo Fernandez Normal [facility] APTTon 02-06-2017 aPTT 29.1 s Normal 23.0 - 37.0 [facility] Comment on above: Performed By: #### P T/INR, PTT ####[address] [place], [place] [phone] Basic Metabolic Panelon 01-23 eGFR (non-black) 108.65 Normal [facility] Comment on above: Result Comment: eGFR Interpretation:Normal: Equal to or greater than 60 mL/min/1.73 meters squaredChronic Kidney Disease: Less than 60 mL/min/1.73 meters squaredKidney Failure: Less than 15 mL/min/1.73 meters squared Performed By: #### B MP, LIVER PROFILE ####[address] DelaC ruzeitan [place], [place] [phone](208) eGFR (non-black) 114.39 Normal [facility] Comment on above: Result Comment: eGFR Interpretation:Normal: Equal to or greater than 60 mL/min/1.73 meters squaredChronic Kidney Disease: Less than 60 mL/min/1.73 meters squaredKidney Failure: Less than 15 mL/min/1.73 meters squared Performed By: #### B MP, LIVER PROFILE ####[address] [place], [place] [phone](991) eGFR (non-black) 108.1 Normal [facility] Comment on above: Result Comment: eGFR Interpretation:Normal: Equal to or greater than 60 mL/min/1.73 meters squaredChronic Kidney Disease: Less than 60 mL/min/1.73 meters squaredKidney Failure: Less than 15 mL/min/1.73 meters squared Performed By: #### B MP, LIVER PROFILE ####[address] [place], [place] [phone](786) eGFR (non-black) 81.88 Normal [facility] Comment on above: Result Comment: eGFR Interpretation:Normal: Equal to or greater than 60 mL/min/1.73 meters squaredChronic Kidney Disease: Less than 60 mL/min/1.73 meters squaredKidney Failure: Less than 15 mL/min/1.73 meters squared Performed By: #### B MP, LIVER PROFILE ####[address] [place] [address] eGFR (non-black) 125.60 Normal [facility] Comment on above: Performed By: #### B MP, LIVER PROFILE ####[address] [place] [address] eGFR (non-black) 132.24 Normal [facility] Comment on above: Performed By: #### B MP, LIVER PROFILE ####[address] [place] [address] eGFR (non-black) 124.64 Normal [facility] Comment on above: Performed By: #### B MP, LIVER PROFILE ####[address] [place] [address] eGFR (non-black) 94.39 Normal [facility] Comment on above: Performed By: #### B MP, LIVER PROFILE ####[address] [place] [address] Age 26 year(s) Normal [facility] Comment on above: Performed By: #### B MP, LIVER PROFILE ####[address] [place] [address] Calcium 10.1 mg/dL Normal 8.4 - 10.2 [facility] Comment on above: Performed By: #### B MP, LIVER PROFILE ####[address] [place] [address] Chloride 103 mmol/L Normal 98 - 107 [facility] Comment on above: Performed By: #### B MP, LIVER PROFILE ####[address] [place] [address] CO2 25 mmol/L Normal 22 - 32 [facility] Comment on above: Performed By: #### B MP, LIVER PROFILE ####[address] [place] [address] Creatinine 0.96 mg/dL Normal 0.52 - 1.04 [facility] Comment on above: Performed By: #### B MP, LIVER PROFILE ####[address] [place] [address] Glucose mass conc 126 mg/dL High 65 - 100 [facility] Comment on above: Performed By: #### B MP, LIVER PROFILE ####[address] [place] [address] Potassium molar conc 3.9 mmol/L Normal 3.6 - 5.0 [facility] Comment on above: Performed By: #### B MP, LIVER PROFILE ####[address] [place] [address] Sodium 139 mmol/L Normal 135 - 145 [facility] Comment on above: Performed By: #### B MP, LIVER PROFILE ####[address] [place] [address] Urea nitrogen 20 mg/dL High 7 - 17 [facility] Comment on above: Performed By: #### B MP, LIVER PROFILE ####[address] [place] [address] CBC W Auto Differentialon Abs Neut # 9.0 10 X 3/mm High 1.8 - 7.7 [facility] Comment on above: Performed By: #### C BC Auto Diff ####[address] [place] [address] Basophils/100 WBC Auto (Bld) 1 % High 0 - 1 [facility] Comment on above: Performed By: #### C BC Auto Diff ####[address] [place] [address] Eosinophils 0.1 10 X 3/mm Normal 0.0 - 0.5 [facility] Comment on above: Performed By: #### C BC Auto Diff ####[address] [place] [address] Eosinophils/100 leukocytes 1 % Normal 0 - 5 [facility] Comment on above: Performed By: #### C BC Auto Diff ####[address] [place] [address] Erythrocyte distribution width Auto Ratio (RBC) 15.1 % High 11.5 - 14.5 [facility] Comment on above: Performed By: #### C BC Auto Diff ####[address] [place] [address] Erythrocytes (RBC) 4.28 10 X 6/mm Normal 4.20 - 5.40 [facility] Comment on above: Performed By: #### C BC Auto Diff ####[address] [place] [address] Hematocrit (HCT) 36.3 % Normal 36.0 - 47.0 [facility] Comment on above: Performed By: #### C BC Auto Diff ####[address] [place] [address] Hemoglobin mass conc (Bld) 12.4 g/dL Normal 12.0 - 16.0 [facility] Comment on above: Performed By: #### C BC Auto Diff ####[address] [place] [address] Lymphocytes 2.3 10 X 3/mm Normal 1.0 - 4.0 [facility] Comment on above: Performed By: #### C BC Auto Diff ####[address] [place] [address] Lymphocytes/100 leukocytes 19 % Low 20 - 40 [facility] Comment on above: Performed By: #### C BC Auto Diff ####[address] [place] [address] MCH 29.0 pg Normal 27.0 - 35.0 [facility] Comment on above: Performed By: #### C BC Auto Diff ####[address] [place] [address] MCHC mass conc (RBC) 34.2 g/dL Normal 32.0 - 36.0 [facility] Comment on above: Performed By: #### C BC Auto Diff ####[address] [place] [address] MCV 84.9 fL Normal 80.0 - 100.0 [facility] Comment on above: Performed By: #### C BC Auto Diff ####[place] [address] [place] [address] Monocytes/100 leukocytes 6 % Normal 1 - 15 [facility] Comment on above: Performed By: #### C BC Auto Diff ####[place] [address] [place] [address] Neutrophils/100 WBC Auto (Bld) 74 % High 50 - 70 [facility] Comment on above: Performed By: #### C BC Auto Diff ####[place] [address] [place] [address] Platelet mean volume (PMV) 8.0 fL Normal 7.5 - 11.5 [facility] Comment on above: Performed By: #### C BC Auto Diff ####[facility] [place] [address] Platelets 454 uLx10 High 150 - 450 [facility] Comment on above: Performed By: #### C BC Auto Diff ####[facility] [place] [address] WBC (Leukocytes) 12.2 10 X 3/mm High 3.7 - 11.0 [facility] Comment on above: Performed By: #### C BC Auto Diff ####[facility] [place] [address] CT BRAIN WOon 02-06-2017 Thyroid stimulating hormone [...] electronically signed by: Dr. Zaire Babcock Normal [facility] CT CERVICAL SPINE WOon 02-06 CT [...] indicated.Report electronically signed by: Dr. Mahamed King [facility] CT SINUS/FACIAL WOon 017 CT [...] body.Report electronically signed by: Dr. Hal Ayoub [facility] Hepatic Function Panelon Alanine aminotransferase (ALT) 30 U/L Normal 7 - 52 [facility] Comment on above: Performed By: #### B YESENIA, LIVER PROFILE ####[facility] [place] [address] Albumin 3.8 g/dL Normal 3.5 - 5.0 [facility] Comment on above: Performed By: #### B YESENIA, LIVER PROFILE ####[facility] [place] [place], [place] [id number](052) Alkaline phosphatase (ALP) 63 U/L Normal 38 - 126 [facility] Comment on above: Performed By: #### B MP, LIVER PROFILE ####[place] [address] [place] [address] Aspartate aminotransferase (AST) 22 U/L Normal 14 - 36 [facility] Comment on above: Performed By: #### B MP, LIVER PROFILE ####[place] [address] [place] [address] Bilirubin (direct) 0.0 mg/dL Normal 0.0 - 0.2 [facility] Comment on above: Performed By: #### B MP, LIVER PROFILE ####[place] [address] [place] [address] Bilirubin (total) 0.8 mg/dL Normal 0.2 - 1.3 [facility] Comment on above: Performed By: #### B MP, LIVER PROFILE ####[place] [address] [place] [address] Protein 6.9 g/dL Normal 6.3 - 8.2 [facility] Comment on above: Performed By: #### B MP, LIVER PROFILE ####[place] [address] [place] [address] PT/INRon 02-06-2017 INR Coag RelTime (Bld) See Comments Normal [facility] Comment on above: Result [...] 2.5-3.5 Performed By: #### P T/INR, PTT ####[address] [place] [address] INR Coag RelTime (PPP) 0.94 Normal 0.90 - 1.10 [facility] Comment on above: Performed By: #### P T/INR, PTT ####[address] [place] [address] Prothrombin time (PT) Coag time (PPP) 12.6 s Normal [facility] Comment on above: Performed By: #### P T/INR, PTT ####[place] [place] [address] Troponin I, Extra Sensitiveo n 02-06-2017 Troponin I.cardiac mass conc ng/mL Normal 0.000 - 0.034 [facility] Comment on above: Result Comment: Limi t of Detection: <0.012 ng/mLAt Risk of Myocardial Damage: 0.012-0.034 ng/mLProbable Myocardial Damage: >0.034 ng/mL Performed By: #### T ROPONIN I ####[address] [place] [address] hCG, Qualitative-Serumon Internal Control ACCEPTABLE Normal [facility] Comment on above: Performed By: #### H CG,QUAL SERUM ####[place] [place] [address] hCG, Qualitative-Serum Negative Normal NEGATIVE [facility] Comment on above: Performed By: #### H CG,QUAL SERUM ####[place] [place] [address] Vital Signs Date Time Vital Sign Value Performing Clinician Facility 01-09-2025 13:45-0400 Body mass index (BMI) [Ratio] 34.11 kg/m2 [employer] Work Phone: [facility] 01-09-2025 13:45-0400 Body weight 92.99 kg Eric Elayne DO Work Phone: [facility] 01-09-2025 13:45-0400 Diastolic blood pressure 78 mm[Hg] Eric Elayne DO Work Phone: [facility] 01-09-2025 13:45-0400 Systolic blood pressure 118 mm[Hg] Eric Elayne DO Work Phone: [facility] 12-25-2024 14:28-0400 Body mass index (BMI) [Ratio] 33.91 kg/m2 Eric Elayne DO Work Phone: [facility] 12-25-2024 14:28-0400 Body weight 92.42 kg Eric Elayne DO Work Phone: [facility] 12-25-2024 14:28-0400 Diastolic blood pressure 80 mm[Hg] Eric Elayne DO Work Phone: [facility] 12-25-2024 14:28-0400 Systolic blood pressure 110 mm[Hg] Eric Elayne DO Work Phone: [facility] 12-13-2024 14:59-0400 Body mass index (BMI) [Ratio] 34.78 kg/m2 Eric Elayne DO Work Phone: [facility] 12-13-2024 14:59-0400 Body weight 94.8 kg Eric Elayne DO Work Phone: [facility] 12-13-2024 14:59-0400 Diastolic blood pressure 78 mm[Hg] Eric Elayne DO Work Phone: [facility] 12-13-2024 14:59-0400 Systolic blood pressure 120 mm[Hg] Eric Elayne DO Work Phone: [facility] 11-28-2024 14:25-0400 Body mass index (BMI) [Ratio] 34.61 kg/m2 Eric Elayne DO Work Phone: [facility] 11-28-2024 14:25-0400 Body weight 94.35 kg Eric Elayne DO Work Phone: [facility] 11-28-2024 14:25-0400 Diastolic blood pressure 76 mm[Hg] Eric Elayne DO Work Phone: [facility] 11-28-2024 14:25-0400 Systolic blood pressure 120 mm[Hg] Eric Elayne DO Work Phone: [facility] 11-07-2024 13:37-0400 Body mass index (BMI) [Ratio] 35.11 kg/m2 Eric Elayne DO Work Phone: [facility] 11-07-2024 13:37-0400 Body weight 95.71 kg Eric Elayne DO Work Phone: [facility] 11-07-2024 13:37-0400 Diastolic blood pressure 72 mm[Hg] Eric Elayne DO Work Phone: [facility] 11-07-2024 13:37-0400 Systolic blood pressure 122 mm[Hg] Eric Elayne DO Work Phone: [facility] 09-18-2024 13:47-0500 Body mass index (BMI) [Ratio] 31.92 kg/m2 Loraine Hillman PA Work Phone: [facility] 09-18-2024 13:47-0500 Body weight 87 kg Loraine Elmer PA Work Phone: [facility] 09-18-2024 13:47-0500 Diastolic blood pressure 76 mm[Hg] Loraine Hillman PA Work Phone: [facility] 09-18-2024 13:47-0500 Systolic blood pressure 116 mm[Hg] Loraine Elmer PA Work Phone: [facility] 09-08-2024 15:52-0500 Body height 165.1 cm [facility] 09-08-2024 15:52-0500 Body mass index (BMI) [Ratio] 58.6 kg/m2 [facility] 09-08-2024 15:52-0500 Body temperature 98.9 [degF] [facility] 09-08-2024 15:52-0500 Body weight 160 kg [facility] 09-08-2024 15:52-0500 Diastolic blood pressure 78 mm[Hg] [facility] 09-08-2024 15:52-0500 Heart rate 105 /min [facility] 09-08-2024 15:52-0500 Respiratory rate 18 /min [facility] 09-08-2024 15:52-0500 SaO2% (BldA) [Mass fraction] 97 % [facility] 09-08-2024 15:52-0500 Systolic blood pressure 120 mm[Hg] [facility] 08-21-2024 13:18-0500 Body mass index (BMI) [Ratio] 31.12 kg/m2 [employer] Work Phone: [facility] 08-21-2024 13:18-0500 Body weight 84.82 kg [employer] Work Phone: [facility] 08-21-2024 13:18-0500 Diastolic blood pressure 70 mm[Hg] [employer] Work Phone: [facility] 08-21-2024 13:18-0500 Systolic blood pressure 120 mm[Hg] [employer] Work Phone: [facility] 07-21-2024 11:10-0500 Body mass index (BMI) [Ratio] 29.45 kg/m2 [facility] 07-21-2024 11:10-0500 Body weight 80.29 kg [facility] 07-21-2024 11:10-0500 Diastolic blood pressure 76 mm[Hg] [facility] 07-21-2024 11:10-0500 Systolic blood pressure 124 mm[Hg] [facility] 06-08-2024 10:32-0500 Body height 165.1 cm [facility] 06-08-2024 10:32-0500 Body mass index (BMI) [Ratio] 29.1 kg/m2 [facility] 06-08-2024 10:32-0500 Body temperature 97.5 [degF] [facility] 06-08-2024 10:32-0500 Body weight 79.37 kg [facility] 06-08-2024 10:32-0500 Diastolic blood pressure 89 mm[Hg] [facility] 06-08-2024 10:32-0500 Heart rate 93 /min [facility] 06-08-2024 10:32-0500 Respiratory rate 18 /min [facility] 06-08-2024 10:32-0500 SaO2% (BldA) [Mass fraction] 98 % [facility] 06-08-2024 10:32-0500 Systolic blood pressure 130 mm[Hg] [facility] 04-21-2024 13:40-0400 Body height 165.1 cm [facility] 04-21-2024 13:40-0400 Body mass index (BMI) [Ratio] 28.1 kg/m2 [facility] 04-21-2024 13:40-0400 Body temperature 99.4 [degF] [facility] 04-21-2024 13:40-0400 Body weight 76.82 kg [facility] 04-21-2024 13:40-0400 Diastolic blood pressure 84 mm[Hg] [facility] 04-21-2024 13:40-0400 Heart rate 85 /min [facility] 04-21-2024 13:40-0400 Respiratory rate 18 /min [facility] 04-21-2024 13:40-0400 SaO2% (BldA) [Mass fraction] 99 % [facility] 04-21-2024 13:40-0400 Systolic blood pressure 126 mm[Hg] [facility] 12-22-2023 18:07-0400 Body height 165.1 cm [facility] 12-22-2023 18:07-0400 Body mass index (BMI) [Ratio] 27.8 kg/m2 [facility] 12-22-2023 18:07-0400 Body temperature 98.7 [degF] [facility] 12-22-2023 18:07-0400 Body weight 75.74 kg [facility] 05-29-2024 18:07-0400 Heart rate 84 /min [facility] 12-22-2023 18:07-0400 Respiratory rate 18 /min [facility] 12-22-2023 18:07-0400 SaO2% (BldA) [Mass fraction] 99 % [facility] Encounters Encounter Date Encounter Type Care Provider Facility Start: 01-18-2025 End: 01-18-2025 Clinisync Result Encounter Eric Elayne DO Work Phone: [facility] Unsolicited Start: 01-18-2025 End: 01-18-2025 Clinisync Result Encounter Eric Elayne DO Work Phone: [facility] Unsolicited Start: 01-10-2025 End: 01-10-2025 Clinisync Result Encounter Eric Elayne DO Work Phone: [facility] Unsolicited Start: 01-10-2025 End: 01-10-2025 Clinisync Result Encounter Eric Elayne DO Work Phone: [facility] Unsolicited Start: 01-09-2025 End: 01-09-2025 Bamboo flowsheet Eric Elayne DO Work Phone: [facility] Start: 01-09-2025 End: 01-09-2025 Bamboo flowsheet Eric Elayne DO Work Phone: [facility] Start: 01-09-2025 End: 01-09-2025 ambulatory ERIC ELAYNE Not Available Start: 01-09-2025 End: 01-09-2025 Office outpatient visit 15 minutes Eric Elayne DO Work Phone: [facility] Comment on above: Third trimester preg chester ([facility]); 34 weeks gestation of ([facility]); H/O pre-eclampsia in prior , currently ([facility]); Diet controlled gestational diabetes mellitus (GDM), antepartum ([facility]) Start: 01-03-2025 End: 01-03-2025 Clinisync Result Encounter [...] Not Available Start: 09-08-2024 End: 09-08-2024 ambulatory [facility] Work Phone: Start: 09-08-2024 End: 09-08-2024 Patient encounter procedure [facility] Loc Work Phone: Start: [...] GA: 10w0d Start: 06-08-2024 End: 06-08-2024 ambulatory [facility] Work Phone: Start: 06-08-2024 End: 06-08-2024 Patient encounter procedure [facility] Ur[facility] Loc Work Phone: Start: 04-21-2024 End: 04-21-2024 ambulatory [facility] Work Phone: Start: 04-21-2024 End: 04-21-2024 Patient encounter procedure [facility] Ur[facility] Loc Work Phone: Start: 12-22-2023 End: 12-22-2023 ambulatory [facility] Work Phone: Start: 12-22-2023 End: 12-22-2023 Patient encounter procedure [facility] Ur[facility] Loc Work Phone: Start: 12-01-2022 ambulatory Facility:[facility] [place] Start: 08-24-2022 End: 08-25-[address] MECHE LE Facility:[facility] Start: 08-19-2022 End: 08-19-[address] ERIC HOLLY Facility:[facility] Start: 07-30-2022 End: 07-30-2022 ambulatory LEANDRO VERDUZCO Facility:[facility] Start: 03-11-2022 End: 03-11-[address] ERIC HOLLY Facility:[facility] Start: 11-23-2021 End: 11-23-2021 ambulatory LEANDRO VERDUZCO Facility:[facility] Start: 02-07-2017 End: 02-07-[address] [facility] Start: 02-06-2017 End: 02-07-2017 Emergency department patient visit IBRAHIMA WARE Facility:[facility] Procedures Date Procedure Procedure Detail Performing Clinician Start: 01-18-2025 US OB BPP W NON-STRESS Eric Elayne DO Work Phone: Start: 01-10-2025 US OB BPP W NON-STRESS Eric Elayne DO Work Phone: Start: 01-09-2025 Urnls dip stick/tabl et rgnt [...] 11-23-2024 ALL CBC WITH AUTO DIFF Eric Elyane DO Work Phone: Start: 11-16-2024 [facility] UA (CLEAN/CATCH) CRISIS MENTAL HEALTH THERAPIST/MICRO IF IND. Eric Elayne DO Work Phone: [...] stick/tabl et rgnt non-auto w/o micrscp Eric Holly DO Work Phone: Start: 06-08-2024 Quick [...] Screening for malign ant neoplasm of cervix [facility] Start: 03-26-2025 Influenza vaccination Influenz a Vaccine (Season Ended) [facility] Start: 01-22-2025 End: 01-22-2025 Patient encounter procedure 01/22/2025 1:30 PM EDT Routine [facility] [address] [place] [id number] Eric Holly, DO [address] [place] [address] [facility] Start: 01-09-2025 End: 01-09-2025 Patient encounter procedure 01/09/2025 1:40 PM EDT Routine [facility] [address] [place] [phone] Eric Holly, DO [address] [place] [address] [facility] Start: 12-25-2024 End: 12-25-2024 Patient encounter procedure 12/25/2024 2:00 PM EDT Routine [facility] [address] [place] [phone] Eric Holly, DO [address] [place] [address] [facility] Start: 12-13-2024 End: 12-13-2024 Patient encounter procedure [facility] Comment on above: Arrived Start: 12-13-2024 End: 06-15-2025 US biophysical profile w non stress test US biophysical profile w non stress test Imaging Routine Gestational diabetes mellitus (GDM), antepartum, gestational diabetes method of control unspecified Expected: 12/13/2024 (Approximate), Expires: 06/15/2025 [facility] Comment on above: Expected: 12/13/2024 (Approximate), Expires: 06/15/2025 Start: 12-13-2024 End: 04-15-2025 US for US OB follow up transabdominal approach Imaging Routine Gestational diabetes mellitus (GDM), antepartum, gestational diabetes method of control unspecified Expected: 12/13/2024, Expires: 04/15/2025 [facility] Work Phone: Comment on above: Expected: 12/13/2024 , Expires: 04/15/2025 Start: 11-28-2024 End: 11-28-2024 Patient encounter procedure 11/28/2024 1:50 PM EDT Routine [facility] [address] [place] [phone] Eric Holly, DO [address] [place], [place] [id number] [phone] [facility] Start: 11-07-2024 End: 11-07-2025 CBC panel - Blood by Automated count CBC Lab Routine Diabetes mellitus screening Expected: 11/07/2024 (Approximate), Expires: 11/07/2025 [facility] Work Phone: Comment on above: Expected: 11/07/2024 (Approximate), Expires: 11/07/2025 Start: 11-07-2024 End: 11-07-2025 Measurement of glucose 1 hour after glucose challenge for glucose tolerance test Glucose tolerance, 1 hour Lab Routine Diabetes mellitus screening Expected: 11/07/2024 (Approximate), Expires: 11/07/2025 [facility] Comment on above: Expected: 11/07/2024 (Approximate), Expires: 11/07/2025 Start: 11-07-2024 End: 11-07-2024 Patient encounter procedure 11/07/2024 1:20 PM EDT Routine [facility] [address] [place] [phone] Eric Holly, DO [address] [place] [address] [facility] Start: 10-16-2024 End: 10-16-2024 Patient encounter procedure 10/16/2024 2:20 PM EDT Routine [facility] [address] [place] [phone] Eric Holly, DO [address] [place] [address] [facility] Start: 09-18-2024 End: 03-18-2025 Alpha fetoprotein, maternal Alpha fetoprotein, maternal Lab Routine Second trimester 18 weeks gestation of Expected: 09/18/2024 (Approximate), Expires: 03/18/2025 [facility] Comment on above: Expected: 09/18/2024 (Approximate), Expires: [...] Second trimester Expected: 08/21/2024 (Approximate), Expires: 09/21/2024 [facility] Work Phone: Comment on above: Expected: 08/21/2024 (Approximate), Expires: 09/21/2024 Start: 08-21-2024 End: 08-21-2024 Patient encounter procedure [facility] Comment on above: Arrived Start: 07-21-2024 End: 07-21-2025 ABO/Rh ABO/Rh Lab Routine Missed menses , unspecified gestational age Expected: 07/21/2024 (Approximate), Expires: 07/21/2025 [facility] Comment on above: Expected: 07/21/2024 [...] Missed menses Expected: 07/21/2024 (Approximate), Expires: 07/21/2025 [facility] Comment on above: Expected: 07/21/2024 (Approximate), Expires: 07/21/2025 Bacteria identified in Urine by Culture Urine culture Microbiology Routine Missed menses Ordered: 07/21/2024 [facility] Comment on above: Ordered: 07/21/2024 CBC W Auto Different ial panel - Blood CBC and differential Lab Routine Missed menses , unspecified gestational age Ordered: 07/21/2024 [facility] Comment on above: Ordered: 07/21/2024 CHLAMYDIA TRACHOMATI S (GENITO/STI) CHLAMYDIA TRACHOMATIS (GENITO/STI) Lab Routine STD exposure Ordered: 09/18/2024 [facility] Comment on above: Ordered: 09/18/2024 Cytology Cervical or vaginal smear or scraping study Pap Smear Pathology and Cytology Routine Well woman exam with routine gynecological exam Ordered: 09/18/2024 [facility] Comment on above: Ordered: 09/18/2024 Hemoglobin A1c/Hemoglobin.total in Blood Hemoglobin A1c Lab Routine Missed menses , unspecified gestational age Ordered: 07/21/2024 [facility] Comment on above: Ordered: 07/21/2024 Hepatitis B virus surface Ag [Presence] in Serum or Plasma by Immunoassay Hepatitis B surface antigen Lab Routine Missed menses , unspecified gestational age Ordered: 07/21/2024 [facility] Comment on above: Ordered: 07/21/2024 Hepatitis C virus Ab [Presence] in Serum or Plasma by Immunoassay Hepatitis C antibody Lab Routine Missed menses , unspecified gestational age Ordered: 07/21/2024 [facility] Comment on above: Ordered: 07/21/2024 HIV-1/HIV-2 antigen/antibody combination immunoassay HIV-1 and HIV-2 antibodies Lab Routine Missed menses , unspecified gestational age Ordered: 07/21/2024 [facility] Comment on above: Ordered: 07/21/2024 Human papilloma viru s DNA [Presence] in Unspecified specimen by Probe with amplification HPV DNA probe, amplified Microbiology Routine Well woman exam with routine gynecological exam Ordered: 09/18/2024 [facility] Comment on above: Ordered: 09/18/2024 Neisseria gonorrhoea e DNA [Presence] in Unspecified specimen by JESS with probe detection Neisseria gonorrhea DNA probe, direct Lab Routine STD exposure Ordered: 09/18/2024 [facility] Comment on above: Ordered: 09/18/2024 Reagin Ab [Presence] in Serum by RPR RPR Lab Routine Missed menses , unspecified gestational age Ordered: 07/21/2024 [facility] Comment on above: Ordered: 07/21/2024 Rubella antibody, IgG Rubella an tibody, IgG Lab Routine Missed menses , unspecified gestational age Ordered: 07/21/2024 [facility] Comment on above: Ordered: 07/21/2024 SURESWAB(R) ADVANCED VAGINITIS PLUS, TMA SURESWAB(R) ADVANCED VAGINITIS PLUS, TMA Pathology and Cytology Routine Vaginal discharge Ordered: 09/18/2024 [facility] Work Phone: Comment on above: Ordered: 09/18/2024 Payers Date Payer Category Payer Medicaid [facility] [id number] 2022 Medicaid [id number] 2019 Unknown [id number] 2017 Unknown 2014 Unknown [id number] 1990 Unknown [id number] [id number] 1990 Unknown [id number] [id number]3 1990 Unknown [id number] [id number]3 1990 Unknown [id number] 2.16.840.1.474463.3.579.2.593 1990 Unknown [id number] 2.16.840.1.036580.3.579.2.593 1990 Unknown [id number] 2.16.840.1.334997.3.579.2.727 1990 Unknown [id number] 2.16.840.1.813665.3.579.2.1259 1990 Unknown [id number] 2.16.840.1.018098.3.579.2.1259 1990 Unknown [id number] 2.16.840.1.311835.3.579.2.1259 1990 Unknown [id number] 2.16.840.1.367511.3.579.2.1259 1990 Unknown [id number] 2.16.840.1.309227.3.579.2.1259 1990 Unknown [id number] 2.16.840.1.521403.3.579.2.1259 1990 Unknown [id number] 2.16.840.1.074367.3.579.2.1259 1990 Unknown [id number] 2.16.840.1.447947.3.579.2.1259 1990 Unknown [id number] [id number]59 1959 Unknown [id number] Unknown [facility] [id number] Social History Date Type Detail Facility Start: 03-31-2023 End: 08-11-2023 Tobacco smoking status ALIS Never smoked tobacco (finding) [facility] Start: 1990 Sex Assigned At Female F [facility] Start: 06-08-2024 End: 09-08-2024 Sex Female (finding) [facility] Start: 03-31-2023 Tobacco use and exposure [...] Gender identity Identifies as female gender (finding) [facility] Medical Equipment Procedure Code Equipment Code Equipment Origin al Text Equipment Identifier Dates 1 strip by In Vi tro route Daily Use in the morning prior to breakfast, 1 hour after each meal for a total of 4times daily. [id number] Start: 11-23-2024 End: 12-25-2024 1 each by In Vit ro route Daily Use to check FSBS four times daily [id number] Start: 11-23-2024 End: 12-23-2024 1 strip by In Vi tro route Daily Use in the morning prior to breakfast, 1 hour after each meal for a total of 4times daily. [id number] Start: 12-25-2024 End: 01-24-2025 1 each by In Vit ro route Daily Use to check FSBS four times daily [id number] Start: 01-01-2025 End: 01-31-2025 Clinical Notes 04-21-2024 to 01-09-2025 Libia Kelly LPN - 01/09/2025 1:40 PM Pennie Huizar NP - 12/25/2024 2:00 PM Payton Kelly LPN - 12/13/2024 2:30 PM Payton Kelly LPN - 11/28/2024 1:50 PM EDT Note Date [...] Multiple Vitamins-Minerals (MULTIVITAMIN ADULT, MINERALS, PO) Multivitamin Fwialluw-Thh-Nd-FA ( 1 + IRON PO) ALLERGIES Allergies [...] 08/21/2024 History of pre-eclampsia 08/21/2024 Second trimester ([facility]) 08/21/2024 Resolved Ambulatory Problems Diagnosis Date [...] note reviewed. Exam conducted with a sales agent business services present. Vitals: Estimated body mass index is 34.11 kg/m as calculated from the following: Height as of 06/24/23: 5' 5 . Weight as of this encounter: 205 lb. BP: 118/78 Patient's last menstrual period was 05/14/2024. ASSESSMENT & PLAN ICD-10-CM 1. Third trimester ([facility]) Z34.93 POCT urinalysis dipstick manually resulted 2. 34 weeks gestation of ([facility]) Z3A.34 3. H/O pre-eclampsia in prior , currently ([facility]) O09.299 4. Diet controlled gestational diabetes mellitus (GDM), antepartum ([facility]) O24.410 Return OB: Patient presents today [...] Eric Holly DO documented in this encounter [facility] 12-25-2024 History of Presen t [...] Multiple Vitamins-Minerals (MULTIVITAMIN ADULT, MINERALS, PO) Multivitamin Tcjiggbv-Zue-Jx-FA ( 1 + IRON PO) ALLERGIES Allergies [...] note reviewed. Exam conducted with a sales agent business services present. Vitals: Estimated body mass index is [...] Eric Holly DO documented in this encounter [facility] 12-13-2024 History of Presen t [...] to check FSBS. Blood Glucose Monitoring Suppl (D-QualQuant Signals Glucometer) w/Device kit 1 kit, Does not [...] Multiple Vitamins-Minerals (MULTIVITAMIN ADULT, MINERALS, PO) Multivitamin Fhqzewsv-Jtb-Sz-FA ( 1 + IRON PO) ALLERGIES Allergies [...] note reviewed. Exam conducted with a sales agent business services present. Vitals: Estimated body mass index is [...] Eric Holly DO documented in this encounter [facility] 11-28-2024 History of Presen t [...] (ProtoNix) 20 MG EC tablet Pantoprazole Sodium Dztwnnhn-Kyb-Lf-FA ( 1 + IRON PO) ALLERGIES Allergies [...] note reviewed. Exam conducted with a sales agent business services present. Vitals: Estimated body mass index is [...] Eric Holly DO documented in this encounter [facility] 11-07-2024 History of Presen t illness Narrative Reason for Appointment: Patient ID: Abram Villarreal is a 33 y.o. female who presents for Routine Visit Patient presents today for Return OB appointment. MEDICATIONS Current Outpatient Medications Medication Instructions albuterol HFA 90 mcg/act inhaler Every 4 hours Multiple Vitamins-Minerals (MULTIVITAMIN ADULT, MINERALS, PO) Multivitamin pantoprazole (ProtoNix) 20 MG EC tablet Pantoprazole Sodium Gnqowvjg-Abm-Vh-FA ( 1 + IRON PO) valACYclovir (VALTREX) [...] note reviewed. Exam conducted with a sales agent business services present. Vitals: Estimated body mass index is [...] Eric Holly DO documented in this encounter [facility] 09-18-2024 History of Presen t [...] note reviewed. Exam conducted with a sales agent business services present. Vitals: Estimated body mass index is [...] of: PALLAVI Mccord documented in this encounter [facility] 08-21-2024 History of Presen t [...] undercooked meat, and stay away from [facility]. Patient has been consulted regarding any [...] Eric Holly DO documented in this encounter [facility] 07-21-2024 History of Presen t [...] undercooked meat, and stay away from [facility]. Patient has also been advised to [...] Keiko Bruce MA documented in this encounter [facility] 04-21-2024 Evaluation note Diagnosis Onset Date Resolution Acute right otitis media acute April 21, 2024 1:26pm Viral URI acute June 08, 2024 9:51am [facility] Work Phone: [employer] note* Diagnosis Onset Date Resolution Status Strep throat acute [facility] Work Phone: Traklightaluation note* Diagnosis Onset Date Resolution Status Acute right otitis media acu te [facility] Work Phone: Traklight[employer]uation note* Diagnosis Missed menses , unspecified gestational age Encounter for supervision of normal first in first trimester [facility] 14 weeks gestation of Second trimester state, incidental Tinea pedis, unspecified laterality History of pre-eclampsia History of anemia Personal history of diseases of blood and blood-forming organs documented in this encounter [facility] HealthcareEvaluation note* Diagnosis Onset Date Resolution Status Admit Date Viral URI with cough acute Febr uary 2024 3:37pm [facility] Work Phone: Traklightaluation note* Diagnosis Well woman exam with routine gynecological exam Routine gynecological examination Second trimester state, incidental 18 weeks gestation of Vaginal discharge Leukorrhea, not specified as infective STD exposure Screening, , for anatomic survey Encounter for anatomic survey Sinusitis, unspecified chronicity, unspecified location documented in this encounter [facility] [employer] note* Diagnosis Second trimester state, incidental 25 [...] section and content) DATE CREATED AUTHOR 01/19/2018 [facility] DATE CREATED AUTHOR AUTHOR'S ORGANIZ ATION 01/19/2018 [facility] DATE CREATED AUTHOR AUTHOR'S ORGANIZ ATION 08/26/2022 [facility] [place] [facility] DATE CREATED AUTHOR AUTHOR'S ORGANIZ ATION 12/02/2022 [facility] DATE CREATED AUTHOR AUTHOR'S ORGANIZ ATION 01/12/2025 [facility] EPIC Care Teams (unrecognized sec tion and content) Team Status: Active Member Role Status Dates Violet Cerda SENIOR FINANCE MANAGER-C Primary Care Provider Active Team Status: Inactive Member Role Status Dates Violet Cerda NP-C Primary Care Provider Active Start: December 22, 2023 End: December 22, 2023 Chaz Mliler PA-C Attending Provider Active St art: December [...] June 08, 2024 End: June 08, 2024 Pin Machine Operator Relationship Specialty Start Date End Date Cuco Munoz MD [address] [place] [address] PCP - General Family Medicine 06/24/23 Pin Machine Operator Relationship Specialty Start Date End Date Cuco Munoz MD [address] [place] [address] PCP - General Family Medicine 06/24/23 Pin Machine Operator Relationship Specialty Start Date End Date Cuco Munoz MD [address] [place] [address] PCP - General Family Medicine 06/24/23 Pin Machine Operator Relationship Specialty Start Date End Date Cuco Munoz MD [address] [place], [place] [id number] PCP - General Family Medicine 06/24/23 Team Status: Inactive Member Role Status Dates Violet Cerda SENIOR FINANCE MANAGER-C Primary Care Provider Active Start: September 08, 2024 End: September 08, 2024 Mayte King SENIOR FINANCE MANAGER-C Active Start: August End: September 08, 2024 Mayte Joiner APRN Attending Provider Active Start: September 08, 2024 End: September 08, 2024 Pin Machine Operator Relationship Specialty Start Date End Date Cuco Munoz MD [address] [facility] [place] [address] PCP - General Family Medicine 06/24/23 Pin Machine Operator Relationship Specialty Start Date End Date Cuco Munoz MD [address] [place] [address], [place] [id number] PCP - General Family Medicine 06/24/23 Pin Machine Operator Relationship Specialty Start Date End Date Cuco Munoz MD [address] [place] [address], [place] [id number] PCP - General Family Medicine 06/24/23 Pin Machine Operator Relationship Specialty Start Date End Date Cuco Munoz MD [address], [place] [phone] PCP - General Family Medicine 06/24/23 Pin Machine Operator Relationship Specialty Start Date End Date Cuco Munoz MD [address] [place], [place] [id number] PCP - General Family Medicine 06/24/23 Pin Machine Operator Relationship Specialty Start Date End Date Cuco Munoz MD [address] [place] [address] PCP - General Family Medicine 06/24/23 Pin Machine Operator Relationship Specialty Start Date End Date Cuco Munoz MD [address] [place] [address] PCP - General Family Medicine 06/24/23 Pin Machine Operator Relationship Specialty Start Date End Date Cuco Munoz MD [address] [place] [address] PCP - General Family Medicine 06/24/23 Pin Machine Operator Relationship Specialty Start Date End Date Cuco Munoz MD [address] [place] [address] PCP - General Family Medicine 06/24/23 Pin Machine Operator Relationship Specialty Start Date End Date Cuco Munoz MD [address] [place] [address] PCP - General Family Medicine 06/24/23 Pin Machine Operator Relationship Specialty Start Date End Date Cuco Munoz MD [address] [place] [address] PCP - General Family Medicine 06/24/23 Pin Machine Operator Relationship Specialty Start Date End Date Cuco Munoz MD [address] [place] [address] PCP - General Family Medicine 06/24/23 Pin Machine Operator Relationship Specialty Start Date End Date Cuco Munoz MD [address] [place] [address] PCP - General Family Medicine 06/24/23 Pin Machine Operator Relationship Specialty Start Date End Date Cuco Munoz MD [address] [place] [address] PCP - General Family Medicine 06/24/23 Goals [...] BE BASED ON THE PRIMARY CLINICAL RECORDS. [employer] [facility]. provides no warranty or guarantee of the accuracy or completeness of information in this document.
--- OUTSIDE RECORDS SUMMARY | 2025-01-20 11:04 | XMS_ITS | Encounter Summary ---
Author Organization [facility] Address [address] [place] [address] Care Team Providers Care Database Programmer Name Role Phone Cuco Munoz MD Primary Care Provider [phone] Encounter Details Date Type Department Care Team (Latest Contact Info) Description 01/19/2025 Travel Social History Tobacco Use Types Packs/Day [...] BCP OB [address] [place] [address] Eric Holly, DO [address] [place] [id number] documented as of this encounter Visit Diagnoses Not on filedocumented in this encounter Care Teams Database Programmer Relationship Specialty Start Date End Date Cuco Munoz MD [address] [place] [address] PCP - General Family Medicine 06/24/23 documented as of this encounter
--- OUTSIDE RECORDS SUMMARY | 2025-01-20 11:04 | XMS_ITS | Encounter Summary ---
Author Organization [facility] Address [address] [place] [address] Care Team Providers Care Core Drier Name Role Phone Cuco Munoz MD Primary Care Provider [phone] Encounter Details Date Type Department Care Team (Late st Contact Info) Description 07/21/2024 Clinisync Result Encounter [facility] External Department Unsolicited Kermit Holly, DO [address] [place], [facility]11 Social History Tobacco Use Types Packs/Day Years [...] Description 01/22/2025 1:30 PM EDT Routine [facility] OB [address] [place] [phone] Kermit Holly DO [address] [place] [address] [place] [address] documented as of this encounter Procedures Procedure Name Priority Date/Time Associated Diagnosis Comments US OB TRANSVAGINAL 07/21/2024 4: 17 PM EST documented in this encounter Results * US OB TRANSVAGINAL (07/21/2024 4:17 PM EST) Anatomical Region Laterality Modality Other 07/21/2024 4:17 PM EST Narrative 07/21/2024 4:20 [place] [address] Ultrasound Report Signed Patient: LYNNETTE NELSON MR#: [id number] : 1990 Acct:[id number] Age/Sex: 33 / F ADM Date: 07/21/24 Loc: [facility] Attending Dr: Kermit Holly D.O. Ordering Physician: Kermit Holly D.O. Date of Service: 07/21/24 Procedure(s): US OB transvaginal Accession Number(s): [id number] cc: Kermit Holly D.O.; Physician,Non-Staff M.DMicah The [address] [address] Patient Name: LYNNETTE NELSON MRN: [id number] date: 1990 Sex: F Assigned Patient Location: [facility] Current Patient Location: [facility] Accession/Order Number: [id number] Exam Date: 07/21/2024 10:15 Report Date: 07/21/2024 [...] Signed By: 07/21/24 1620 DD/ 1617 TD/TT: Structural Steel Shop Supervisor: Procedure Note Radiology, Radiologist, MD - 07/21/2024 [place] [address] Ultrasound Report Signed Patient: LYNNETTE NELSON RMR#: [id number] : 1990Acct:[id number] Age/Sex: 33 / FADM Date: 07/21/24 Loc: [facility] Attending Dr: Kermit Holly D.O. Ordering Physician: Kermit Holly D.O. Date of Service: 07/21/24 Procedure(s): US OB transvaginal Accession Number(s): [id number] cc: Kermit Holly D.O.; Physician,Non-Staff [place] The [place] [id number] Patient Name: LYNNETTE NELSON MRN: [id number] date: 1990 Sex: F Assigned Patient Location: [facility] Current Patient Location: [facility] Accession/Order Number: [id number] Exam Date: 07/21/2024 10:15 Report Date: 07/21/2024 [...] M.D. Signed By:07/21/24 162 DD/ 16 TD/TT: Structural Steel Shop Supervisor: us Kermit Elayne DO [facility] Final Result documented in this encounter Visit Diagnoses Not on filedocumented in this encounter Care Teams Core Drier Relationship Specialty Start Date End Date Cuco Munoz MD [address] [place] [address] PCP - General Family Medicine 06/24/23 documented as of this encounter
--- OUTSIDE RECORDS SUMMARY | 2025-01-20 11:04 | XMS_ITS | Encounter Summary ---
Author Organization [facility] Address [address] [place] [address] Care Team Providers Care Manager Quality Compliance Name Role Phone Cuco Munoz MD Primary Care Provider [phone] Encounter Details Date Type Department Care Team (Late st Contact Info) Description 01/18/2025 Clinisync Result Encounter [facility] External Department Unsolicited Kermit Holly, DO [address], [facility]11 Social History Tobacco Use Types Packs/Day Years [...] Description 01/22/2025 1:30 PM EDT Routine [facility] OB [address] [place] [phone] Kermit Holly DO [address] [place] [address] [place] [address] documented as of this encounter Procedures Procedure Name Priority Date/Time Associated Diagnosis Comments US OB BPP W NON-STRESS 01/18/2025 8:14 AM EDT documented in this encounter Results * US OB BPP W NON-STRESS (01/18/2025 8:14 AM EDT) Anatomical Region Laterality Modality Other 01/18/2025 8:14 AM EDT Narrative 01/18/2025 8:16 [place] [address] Ultrasound Report Signed Patient: LYNNETTE NELSON MR#: [id number] : 1990 Acct:[id number] Age/Sex: 34 / F ADM Date: 01/17/25 Loc: US Attending Dr: Kermit Holly D.O. Ordering Physician: Kermit Holly D.O. Date of Service: 01/17/25 Procedure(s): US OB BPP w non-stress Accession Number(s): [id number] cc: Kermit Holly D.O.; Physician,Non-Staff M.DMicah The [place] [address] Patient Name: LYNNETTE NELSON MRN: [id number] date: 1990 Sex: F Assigned Patient Location: Current Patient Location: Accession/Order Number: [id number] Exam Date: 01/18/2025 08:13 Report Date: 01/18/2025 [...] 01/18/2025 8:14 AM Dictation Location: [place] [address] Electronically authenticated by: [id number] Y Date: 01/18/2025 08:14 Dictated By: Libia Shrestha M.D. Signed By: 01/18/25815 DD/ 3 TD/TT: Grout Machine Operator: Procedure Note Radiology, Radiologist, MD - 01/18/2025 [place] [address] Ultrasound Report Signed Patient: LYNNETTE NELSON RMR#: [id number] : 1990Acct:[id number] Age/Sex: 34 / FADM Date: 01/17/25 Loc: US Attending Dr: Kermit Holly D.O. Ordering Physician: Kermit Holly D.O. Date of Service: 01/17/25 Procedure(s): US OB BPP w non-stress Accession Number(s): [id number] cc: Kermit Holly D.O.; Physician,Non-Staff [place] The [address] [id number] Patient Name: LYNNETTE NELSON MRN: [id number] date: 1990 Sex: F Assigned Patient Location: US Current Patient Location: Accession/Order Number: [id number] Exam Date: 01/18/2025 08:13 Report Date: 01/18/2025 [...] 01/18/2025 8:14 AM Dictation Location: [place] [address] Electronically authenticated by: [id number] Y Date: 508:14 Dictated By: Libia Shrestha M.D. Signed By:01/18/2516 DD/ TD/TT: Grout Machine Operator: us Kermit Elayne DO [facility] Final Result documented in this encounter Visit Diagnoses Not on filedocumented in this encounter Care Teams Manager Quality Compliance Relationship Specialty Start Date End Date Cuco Munoz MD [address] [place] [address] PCP - General Family Medicine 06/24/23 documented as of this encounter
--- OUTSIDE RECORDS SUMMARY | 2025-01-20 11:04 | XMS_ITS | Encounter Summary ---
Author Organization [facility] Address [address] [place] [address] Care Team Providers Care Grain Oilseed Or Pasture Grower Name Role Phone Cuco Munoz MD Primary Care Provider [phone] Encounter Details Date Type Department Care Team (Late Contact Info) Description 01/09/2025 Bamboo flowsheet [facility] OB [address] [place] [address] Eric Holly [address] Maureen Uriostegui, [facility]11 Social History Tobacco Use Types Packs/Day Years [...] Description 01/22/2025 1:30 PM EDT Routine [facility] OB [address] [place] [address] Eric Holly [facility] [place] Uriostegui, [facility]11 documented as of this encounter Visit Diagnoses Not on filedocumented in this encounter Care Teams Grain Oilseed Or Pasture Grower Relationship Specialty Start Date End Date Cuco Munoz MD [address] [place] [address] PCP - General Family Medicine 06/24/23 documented as of this encounter
--- OUTSIDE RECORDS SUMMARY | 2025-01-20 11:04 | XMS_ITS | Encounter Summary ---
Author Organization [facility] Address [address] [place] [address] Care Team Providers Care Climatology Teacher Name Role Phone Cuco Munoz MD Primary Care Provider [phone] Encounter Details Date Type Department Care Team (Late st Contact Info) Description 10/02/[address] [facility] OB [address] [facility] [place] [address] Priscila Landry MA Social History Tobacco [...] 1:30 PM EDT Routine [facility] BCP OB [address] [place] [address] Eric Holly, [address] [place], [place] [address] documented as of this encounter Procedures Procedure Name Priority Date/Time Associated Diagnosis Comments PAP SMEAR Routine 09/18/2024 12:00 AM EST documented in this encounter Results * Pap Smear (09/18/2024 12:00 AM EST) Swab Cervical swab / Unknown [facility]Y ORDERABLES Final Re sult EXTERNAL LAB documented in this encounter Visit Diagnoses Not on filedocumented in this encounter Care Teams Climatology Teacher Relationship Specialty Start Date End Date Cuco Munoz MD [address] [place] [address] PCP - General Family Medicine 06/24/23 documented as of this encounter
[2025-01-20 11:06] VITALS: BP 103/74; PULSE 92
== END 2025-01-20 11:45 | disposition home or self-care (01) ==
LOC: FBCO 11:01 → FBC 11:03
PROVIDERS: Visit Provider Obstetrics & Gynecology
DX: O24.419 Gestational diabetes mellitus in pregnancy, unspecified control (principal)
CPT/HCPCS: 59025

== ENCOUNTER 2025-01-22 20:38 | Outpatient (REF) | payer MEDICAID, SELFPAY ==
--- OUTSIDE RECORDS SUMMARY | 2025-01-22 20:59 | XMS_ITS | CCD ---
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 Yellow [facility] Glucose, UA Negative Negative - 1999(110) ++++ mg/dL [facility] Interpretation and review of laboratory results Normal [facility] Ketones, UA Negative Negative - 160(16) ++++ mg/dL [facility] Leukocytes, UA Negative Negative - 500+++ Mike/mcL [facility] Nitrite, UA Negative Negative - Positive [facility] pH, UA 6.5 5 - 9 [facility] Protein, UA Negative Negative - 1999(20) ++++ mg/dL [facility] Spec Grav, UA 1.025 1 - 1.03 [facility] Urobilinogen, UA 1.0 0.2 - 12 mg/dL [facility] AFP, SERUM, OPEN SPINA BIFID Aon 09-08-2024 AFP MOM 1.72 . [facility] AFP VALUE 54.2 ng/mL . [facility] COMMENT: Comment . [facility] Comment on above: Oksana Blank , Ph.D., [facility] Director References: Available Upon Request. Multiples Of Median Cutoffs For AFP Elevations Grant 2.5 Black 2.8 IDD 2.0 Twins 4.5 Abbreviation Definitions IDD - Insulin Dep Diabetes OSBR - Open Spina Bifida Risk For further inquiries contact [employer] [facility] [facility] at [phone]. This test was developed and its performance characteristics determined by [facility]. It has not been cleared or approved by the Food and Drug Administration. Performed at: [facility] [address] [place], [place] [id number] Associate Spa Director: Christ Rodas [facility], Phone: [phone] GEST. AGE ON COLLECTION DATE 16.7 . weeks [facility] GESTAT. AGE BASED ON Ultrasound . [facility] Comment on above: 14.4 on 08/21/2024 Recalculations are not recommended when gestational dating by LMP and ultrasound are within 10 days. INSULIN DEP DIABETES No . [facility] INTERPRETATION Comment . [facility] Comment on above: Interpretation: Scre [...] Customer Services to discuss available options. The [employer] recommends amniocentesis be offered to women age 35 and older. [age] [facility] MULTIPLE GESTATION No . [facility] OSBR RISK 1 IN 1551 . [facility] RACE . [facility] RESULTS Report . [facility] TEST RESULTS: Negative . [facility] WEIGHT 187 . lbs [facility] N N ULTRASOUND [id number] 3 14 N 1 187 N N N N N White/ [facility] Urinalysis macro (dipstick) panel (U)on 08-21-2024 Bilirubin, UA Negative Negative - 4(70) +++ mg/dL [facility] Blood, UA Negative Negative - 50 Oscar/mcL [facility] Clarity, UA Clear [facility] Color, UA Yellow [facility] Glucose, UA Negative Negative - 1999(110) ++++ mg/dL [facility] Interpretation and review of laboratory results Normal [facility] Ketones, UA Negative Negative - 160(16) ++++ mg/dL [facility] Leukocytes, UA Negative Negative - 500+++ Mike/mcL [facility] Nitrite, UA Negative Negative - Positive [facility] pH, UA 5.5 5 - 9 [facility] Protein, UA Negative Negative - 1999(20) ++++ mg/dL [facility] Spec Grav, UA 1.015 1 - 1.03 [facility] Urobilinogen, UA 0.2 0.2 - 12 mg/dL [facility] ALL CBC WITH AUTO DIFFon BASOPHILS ABSOLUTE AUTO 0.1 [facility] Basophils/100 WBC (Bld) 0.5 % 0.2 - 2.0 % [facility] Eosinophils/100 WBC (Bld) 1.6 % 0.9 - 7.0 % [facility] Erythrocyte distribution width (RBC) [Ratio] 14 % 11.0 - 15.0 % [facility] Hematocrit (Bld) [Volume fraction] 35.4 % Low 36.0 - 48.0 % [facility] Hemoglobin (Bld) [Mass/Vol] 12.2 g/dL 12.0 - 16.0 g/dL [facility] IMMATURE GRANULOCYTES ABS AUTO 0.05 High [facility] Immature granulocytes/100 WBC (Bld) 0.4 % 0.0 - 0.5 % [facility] Interpretation and review of laboratory results Abnormal [facility] LYMPHOCYTES ABSOLUTE AUTO 1.8 [facility] Lymphocytes/100 WBC (Bld) 14.4 % Low 20.5 - 60.0 % [facility] MCH (RBC) [Entitic mass] 31 pg 26.7 - 34.0 pg [facility] MCHC (RBC) [Mass/Vol] 34.5 g/dL 29.9 - 35.2 g/dL [facility] MCV (RBC) [Entitic vol] 90.1 fL 81.0 - 99.0 fL [facility] MONOCYTES ABSOLUTE AUTO 0.8 [facility] Monocytes/100 WBC (Bld) 5.9 % 1.7 - 12.0 % [facility] NEUTROPHILS ABSOLUTE AUTO 9.8 High [facility] Neutrophils/100 WBC (Bld) 77.2 % High 43.0 - 75.0 % [facility] Platelet mean volume (Bld) [Entitic vol] 10.3 fL 9.5 - 13.5 fL [facility] TB EO # 0.2 [facility] TB PLT [address] [facility] RBC 3.[address] [facility] WBC 12.7 High [facility] HCG ( test) Ql (U)o n 07-21-2024 Interpretation and review of laboratory results Abnormal [facility] Preg Test, Ur Positive Negative [facility] Urinalysis macro (dipstick) panel (U)on 07-21-2024 Bilirubin, UA Negative Negative - 4(70) +++ mg/dL [facility] Blood, UA Negative Negative - 50 Oscar/mcL [facility] Clarity, UA Clear [facility] Color, UA Yellow [facility] Glucose, UA Negative Negative - 1999(110) ++++ mg/dL [facility] Interpretation and review of laboratory results Normal [facility] Ketones, UA Negative Negative - 160(16) ++++ mg/dL [facility] Leukocytes, UA Negative Negative - 500+++ Mike/mcL [facility] Nitrite, UA Negative Negative - Positive [facility] pH, UA 6.5 5 - 9 [facility] Protein, UA Negative Negative - 2000(20) ++++ mg/dL [facility] Spec Grav, UA 1.015 1 - 1.03 [facility] Urobilinogen, UA 0.2 0.2 - 12 mg/dL [facility] No Panel InformationOrdered By: Mayte Joiner on 06-08-2024 Quick Strep (POC) [facility] No Panel InformationOrdered By: Ketty Jones on 04-21-2024 Quick Strep (POC) [facility] Quick Strep (POC) [facility] No Panel InformationOrdered By: Chaz Miller on 12-22-2023 Quick Strep (POC) [facility] US PELVISon 08-25-2022 US PELVIS EXAMINATION: [...] REMA OLIVAS Date: 2022-08-25 07:25 Normal [facility] CHLAMYDIA/GONOCOCCUS JESS (SW AB/URINE/PAPon 08-23-2022 Chlamydia trachomatis, JESS Negative Normal Negative [facility] Comment on above: Performed By: #### C BC #### [facility] [address] [place] [address] Dr. Babar Marks Neisseria gonorrhoeae, JESS Negative Normal Negative [facility] Comment on above: Performed By: #### C BC #### [facility] [address] [place] [address] Dr. Babar Marks VAGINITIS/VAGINOSIS DNA PROB Tam 08-21-2022 Kelsey species Negative Normal Negative [facility] Comment on above: Performed By: #### V AGINT #### [facility] [address] [place] [address] Dr. Babar Marks Gardnerella vaginalis Negative Normal Negative [facility] Comment on above: Performed By: #### V AGINT #### [facility] [address] [place] [address] Dr. Babar Marks Trichomonas vaginalis Negative Normal Negative [facility] Comment on above: Performed By: #### V AGINT #### [facility] [address] [place] [address] Dr. Babar Marks CBC AUTO DIFFon 07-30-2022 BASO # 0.1 103/ul Normal 0.0-0.1 [facility] Comment on above: Performed By: #### C BC #### [facility] [address] [place] [address] Dr. Babar Marks Basophils/100 WBC (Bld) 0.8 % Normal 0.2-2.0 [facility] Comment on above: Performed By: #### C BC #### [facility] [address] [place] [address] Dr. Babar Marks EO # 0.1 103/ul Normal 0.0-0.7 [facility] Comment on above: Performed By: #### C BC #### [facility] [address] [place] [address] Dr. Babar Marks Eosinophils/100 WBC (Bld) 1.4 % Normal 0.9-7.0 [facility] Comment on above: Performed By: #### C BC #### [facility] [address] [place] [address] Dr. Babar Marks Erythrocyte distribution width (RBC) [Ratio] 13.7 % Normal 11.0-15.0 [facility] Comment on above: Performed By: #### C BC #### [facility] [address] [place] [address] Dr. Babar Marks Hematocrit (Bld) [Volume fraction] 36.9 % Normal 36.0-48.0 [facility] Comment on above: Performed By: #### C BC #### [facility] [address] [place] [address] Dr. Babar Marks Hemoglobin (Bld) [Mass/Vol] 12.4 g/dL Normal 12.0-16.0 [facility] Comment on above: Performed By: #### C BC #### [facility] [address] [place] [address] Dr. Babar Marks IG # 0.03 10e3/ul Normal 0.00-0.03 [facility] Comment on above: Performed By: #### C BC #### [facility] [address] [place] [address] Dr. Babar Marks IG % 0.3 % Normal 0.0-0.5 [facility] Comment on above: Performed By: #### C BC #### [facility] [address] [place] [address] [address] Babar Marks LYMPH # 1.7 103/ul Normal 1.2-3.8 [facility] Comment on above: Performed By: #### C BC #### [facility] [address] [place] [address] [address] Babar Marks Lymphocytes/100 WBC (Bld) 18.1 % Critically low 20.5-60.0 [facility] Comment on above: Performed By: #### C BC #### [facility] [address] [place] [address] Dr. Babar Marks MANUAL DIFF REQ NO Normal [facility] Comment on above: Performed By: #### C BC #### [facility] [address] [place] [address] Dr. Babar Marks MCH (RBC) [Entitic mass] 29.5 pg Normal 26.7-34.0 [facility] Comment on above: Performed By: #### C BC #### [facility] [address] [place] [address] Dr. Babar Marks MCHC (RBC) [Mass/Vol] 33.6 g/dL Normal 29.9-35.2 [facility] Comment on above: Performed By: #### C BC #### [facility] [address] [place] [address] Dr. Babar Marks MCV (RBC) [Entitic vol] 87.9 fL Normal 81.0-99.0 [facility] Comment on above: Performed By: #### C BC #### [facility] [address] [place] [address] Dr. Babar Marks MONO # 0.6 103/ul Normal 0.3-0.8 [facility] Comment on above: Performed By: #### C BC #### [facility] [address] [place] [address] Dr. Babar Marks Monocytes/100 WBC (Bld) 6.5 % Normal 1.7-12.0 [facility] Comment on above: Performed By: #### C BC #### [facility] [address] [place] [address] [address] Babar Marks NEUT # 6.7 103/ul Critically high 1.4-6.5 [facility] Comment on above: Performed By: #### C BC #### [facility] [address] [place] [address] Dr. Babar Marks Neutrophils/100 WBC (Bld) 72.9 % Normal 43.0-75.0 [facility] Comment on above: Performed By: #### C BC #### [facility] [address] [place] [address] Dr. Babar Marks Platelet mean volume (Bld) [Entitic vol] 10.1 fL Normal 9.5-13.5 [facility] Comment on above: Performed By: #### C BC #### [facility] [address] [place] [address] Dr. Babar Marks PLT 393 103/ul Normal 150-450 [facility] Comment on above: Performed By: #### C BC #### [facility] [address] [place] [address] Dr. Babar Marks RBC 4.20 106/ul Normal 4.20-5.40 [facility] Comment on above: Performed By: #### C BC #### [facility] [address] [place] [address] Dr. Babar Marks WBC 9.2 103/ul Normal 4.0-11.0 [facility] Comment on above: Performed By: #### C BC #### [facility] [address] [place] [address] Dr. Babar aMrks ER URINE PROFILEon 3 Bilirubin Ql (U) Negative Normal NEGATIVE [facility] Comment on above: Performed By: #### E RUR #### [facility] [address] [place] [address] Dr. Babar Marks Clarity (U) CLEAR Normal CLEAR [facility] Comment on above: Performed By: #### E RUR #### [facility] [address] [place] [address] Dr. Babar Marks Color (U) LT. YELLOW Normal YELLOW [facility] Comment on above: Performed By: #### E RUR #### [facility] [address] [place] [address] Dr. Babar VILLAREAL A micrscopic examina tion will be performed if indicated. Normal [facility] Comment on above: Performed By: #### E RUR #### [facility] [address] [place] [address] Dr. Babar Marks Glucose Ql (U) Negative Normal NEGATIVE [facility] Comment on above: Performed By: #### E RUR #### [facility] [address] [place] [address] Dr. Babar Marks Hemoglobin Ql (U) Negative Normal NEGATIVE [facility] Comment on above: Performed By: #### E RUR #### [facility] [address] [place] [address] Dr. Babar Marks Ketones Ql (U) Negative Normal NEGATIVE [facility] Comment on above: Performed By: #### E RUR #### [facility] [address] [place] [address] Dr. Babar Marks LEUKOCYTES Negative Normal NEGATIVE [facility] Comment on above: Performed By: #### E RUR #### [facility] [address] [place] [address] Dr. Babar Marks Nitrite Ql (U) Negative Normal NEGATIVE [facility] Comment on above: Performed By: #### E RUR #### [facility] [address] [place] [address] Dr. Babar Marks pH (U) 6.5 [pH] Normal 5-9 [facility] Comment on above: Performed By: #### E RUR #### [facility] [address] [place] [address] Dr. Babar Marks SPEC GRAVITY 1.015 Normal 1.005-<=1.0 25 [facility] Comment on above: Performed By: #### E RUR #### [facility] [address] [place] [address] Dr. Babar Marks UA PROTEIN Negative Normal NEGATIVE/ TRACE [facility] Comment on above: Performed By: #### E RUR #### [facility] [address] [place] [address] Dr. Babar Marks UR MICRO IND NOT INDICATED Normal [facility] Comment on above: Performed By: #### E RUR #### [facility] [address] [place] [address] Dr. Babar Marks Urobilinogen Qn (U) 0.2 {Courtney'U}/dL Normal 0.2 - 1. 0 [facility] Comment on above: Performed By: #### E RUR #### [facility] [address] [place] [address] Dr. Babar Marks LIPASEon 07-30-2022 Lipase [Catalytic activity/Vol] 141.0 U/L Normal 73.0-393.0 [facility] Comment on above: Performed By: #### L IPA, CMP #### [facility] [address] [place] [address] Dr. Babar Marks PREG HCG QUALon 07-30-2022 , QUAL Negative Normal NEGATIVE [facility] Comment on above: Performed By: #### C BC #### [facility] [address] [place] [address] Dr. Babar Marks PROF 14(COMP METB)on 023 Albumin [Mass/Vol] 3.3 g/dL Critically low 3.4-5.0 [facility] Comment on above: Performed By: #### C BC #### [facility] [address] [place] [address] Dr. Baabr Marks Albumin/Globulin [Mass ratio] 0.8 {ratio} Normal [facility] Comment on above: Performed By: #### C BC #### [facility] [address] [place] [address] Dr. Babar Marks ALP [Catalytic activity/Vol] 44 U/L Critically low 46-116 [facility] Comment on above: Performed By: #### C BC #### [facility] [address] [place] [address] Dr. Babar Marks ALT [Catalytic activity/Vol] 17 U/L Normal 14-59 [facility] Comment on above: Performed By: #### C BC #### [facility] [address] [address] [address] Babar Marks Anion gap [Moles/Vol] 11.0 mmol/L Normal [facility] Comment on above: Performed By: #### C BC #### [facility] [address] [address] [address] Babar Marks AST [Catalytic activity/Vol] 13 U/L Critically low 15-37 [facility] Comment on above: Performed By: #### C BC #### [facility] [address] [place] [address] Dr. Babar Marks Bilirubin [Mass/Vol] 0.3 mg/dL Normal 0.2-1.0 [facility] Comment on above: Performed By: #### C BC #### [facility] [address] [place] [address] Dr. Babar Marks Calcium [Mass/Vol] 8.6 mg/dL Normal 8.5-10.1 [facility] Comment on above: Performed By: #### C BC #### [facility] [address] [place] [address] Dr. Babar Marks Chloride [Moles/Vol] 107 mmol/L Normal 98-107 [facility] Comment on above: Performed By: #### C BC #### [facility] [address] [place] [address] Dr. Babar Marks CO2 [Moles/Vol] 29.5 mmol/L Normal 21.0-32.0 [facility] Comment on above: Performed By: #### C BC #### [facility] [address] [place] [address] Dr. Babar Marks Creatinine [Mass/Vol] 0.71 mg/dL Normal 0.55-1.02 [facility] Comment on above: Performed By: #### C BC #### [facility] [address] [place] [address] Dr. Babar Marks EGFR-AF BELARUSIAN >60 Normal >=60 [facility] Comment on above: Performed By: #### C BC #### [facility] [address] [address] [address] Babar Marks EGFR-NON AF BELARUSIAN >60 Normal >=60 [facility] Comment on above: Performed By: #### C BC #### [facility] [address] [address] [address] Babar Marks Globulin (S) [Mass/Vol] 4.0 g/dL Normal [facility] Comment on above: Performed By: #### C BC #### [facility] [address] [address] [address] Babar Marks Glucose [Mass/Vol] 81 mg/dL Normal 74-106 [facility] Comment on above: Performed By: #### C BC #### [facility] [address] [place] [address] Dr. Babar Marks Potassium [Moles/Vol] 3.5 mmol/L Normal 3.5-5.1 [facility] Comment on above: Performed By: #### C BC #### [facility] [address] [place] [address] Dr. Babar Marks Protein [Mass/Vol] 7.3 g/dL Normal 6.4-8.2 [facility] Comment on above: Performed By: #### C BC #### [facility] [address] [place] [address] Dr. Babar Marks Sodium [Moles/Vol] 144 mmol/L Normal 136-145 [facility] Comment on above: Performed By: #### C BC #### [facility] [address] [place] [address] Dr. Bbaar Marks Urea nitrogen [Mass/Vol] 14.0 mg/dL Normal 7.0-18.0 [facility] Comment on above: Performed By: #### C BC #### [facility] [address] [place] [address] Dr. Babar Marks Urea nitrogen/Creatinine [Mass ratio] 19.7 mg/mg Normal [facility] Comment on above: Performed By: #### C BC #### [facility] [address] [address] [address] Babar Marks XR ABD FLAT UP_PA [...] by: YESENIA ARRIOLA Date: 2022-07-30 18:11 Normal [facility] PAP ACOG PANEL 2: 30 to 65on 03-18-2022 . . Normal [facility] Comment on above: Result Comment: Perf ormed at: WB Performed By: #### [id number] #### [facility] [address] [place] [address] Dr. Babar Marks Age Gdln ACOG Testing 30-65 Normal [facility] Comment on above: Performed By: #### [id number] #### [facility] [address] [address] [address] Babar Marks DIAGNOSIS: Comment Normal [facility] Comment on above: Result Comment: NEGA TIVE FOR INTRAEPITHELIAL LESION OR MALIGNANCY. Performed at: WB Performed By: #### [id number] #### [facility] [address] [place] [address] Dr. Babar Marks HPV Aptima Positive Abnormal Negative [facility] Comment on above: Result Comment: This nucleic acid amplification test detects fourteen high-risk HPV types (16,18,31,33,35,39,45,51,52,56,58,59,66,68) without differentiation. Performed at: =G Performed By: #### [id number] #### [facility] [address] [place] [address] Dr. Babar Marks HPV Genotype 16 Negative Normal Negative [facility] Comment on above: Result Comment: Perf ormed at: =G Performed By: #### [id number] #### [facility] [address] [place] [address] Dr. Babar Marks HPV Genotype 18,45 Negative Normal Negative [facility] Comment on above: Result Comment: Perf ormed at: =G Performed By: #### [id number] #### [facility] [address] [place] [address] Dr. Babar Marks Methodology: Comment Normal [facility] Comment on above: Result Comment: This liquid based ThinPrep(R) pap test was screened with the use of an image guided system. Performed at: WB Performed By: #### [id number] #### [facility] [address] [place] [address] Dr. Babar Marks Note: Comment Normal [facility] Comment on above: Result Comment: The Pap smear is a screening test designed to aid in the detection of premalignant and malignant conditions of the uterine cervix. It is not a diagnostic procedure and should not be used as the sole means of detecting cervical cancer. Both false-positive and false-negative reports do occur. . Performed at: WB Performed By: #### [id number] #### [facility] [address] [place] [address] Dr. Babar Marks Performed by: Comment Normal [facility] Comment on above: Result Comment: Marry Billy Oreman (ASCP) Performed at: WB Performed By: #### [id number] #### [facility] [address] [place] [address] Dr. Babar Marks Specimen adequacy: Comment Normal [facility] Comment on above: Result Comment: Sati sfactory for evaluation. Endocervical and/or squamous metaplastic cells (endocervical component) are present. Performed at: WB Performed By: #### [id number] #### [facility] [address] [address] [address] Babar Marks CHLAMYDIA/GONOCOCCUS JESS (SW AB/URINE/PAPon 03-14-2022 Chlamydia trachomatis, JESS Negative Normal Negative [facility] Comment on above: Performed By: #### C T/NGNA #### [facility] [address] [address] [address] Babar Marks Neisseria gonorrhoeae, JESS Negative Normal Negative [facility] Comment on above: Performed By: #### C T/NGNA #### [facility] [address] [place] [address] Dr. Babar Marks VAGINITIS/VAGINOSIS DNA PROB Tam 03-14-2022 Kelsey species Negative Normal Negative [facility] Comment on above: Performed By: #### V AGINT #### [facility] [address] [place] [address] Dr. Babar Marks Gardnerella vaginalis Negative Normal Negative [facility] Comment on above: Performed By: #### V AGINT #### [facility] [address] [place] [address] Dr. Babar Marks Trichomonas vaginalis Negative Normal Negative [facility] Comment on above: Performed By: #### V AGINT #### [facility] [address] [place] [address] Dr. Babar Marks XR CHEST 2 Von 11-23-2021 XR CHEST 2 V EXAM: XR CHEST 2 V COMPARISON: 02/06/2017 CLINICAL INDICATION: Cough. FINDINGS: The cardiomediastinal silhouette is within normal limits. No focal consolidation. No pleural effusion. No pneumothorax. IMPRESSION: No radiographic evidence of acute cardiopulmonary abnormality. Electronically authenticated by: DANIELA ZENG Date: 2021-11-23 17:05 Normal [facility] Discharge Summaryon 02-08-20 17 HIM IP Note OR [employer] Normal [facility] Drug Scr, Abuse, Uron 2016 Amphetamine(s),Ur Negative Normal NEG [facility] Comment on above: Result Comment: (Pos itive cutoff 1000 ng/mL) Performed By: #### U AMIC, MARLEEN ####[address] [address] Barbiturate(s),Ur Negative Normal NEG [facility] Comment on above: Result Comment: (Pos itive cutoff 200 ng/mL) Performed By: #### U AMIC, MARLEEN ####[address] [address] Base excess Negative Normal NEG [facility] Comment on above: Result Comment: (Pos itive cutoff 300 ng/mL) Performed By: #### U AMIC, MARLEEN ####[address] [address] Benzodiazepine(s) Negative Normal NEG [facility] Comment on above: Result Comment: (Pos itive cutoff 200 ng/mL) Performed By: #### U AMIC, MARLEEN ####[address] [address] Cannabinoid(s),Ur Negative Normal NEG [facility] Comment on above: Result Comment: (Pos itive cutoff 50 ng/mL) Performed By: #### U AMIC, MARLEEN ####[address] [address] Interpretive Info Assay provides medic al screening only. The absence of expected drug(s) and/or Normal [facility] Comment on above: Result Comment: meta bolite(s) may indicate diluted or adulterated urine, limitations of testing or timing of collection.Testing for legal purposes should be confirmed by another method. To request confirmation of test result, please call the lab within 7 days of sample submission.[address] [address] Performed By: #### U AMIC, MARLEEN ####[address] [address] Opiate(s), Ur Positive Abnormal NEG [facility] Comment on above: Result Comment: (Pos itive cutoff 300 ng/mL) Performed By: #### U AMIC, MARLEEN ####[facility] [address] [place] [address] Oxycodone, Urine Negative Normal NEG [facility] Comment on above: Result Comment: (Pos itive cutoff 100 ng/mL) Performed By: #### U AMIC, MARLEEN ####[facility] [address] [address] Phencyclidine, Ur Negative Normal NEG [facility] Comment on above: Result Comment: (Pos itive cutoff 25 ng/mL) Performed By: #### U AMIC, MARLEEN ####[facility] [address] [address] Urine, methadone presence Negative Normal NEG [facility] Comment on above: Result Comment: (Pos itive cutoff 300 ng/mL) Performed By: #### U AMIC, MARLEEN ####[facility] [address] [address] Buprenorphrine, Ur NOT REPORTED Normal NEG [facility] Comment on above: Performed By: #### U AMIC, MARLEEN ####[facility] [address] [address] MDMA, Urine NOT REPORTED Normal NEG [facility] Comment on above: Performed By: #### U AMIC, MARLEEN ####[facility] [address] [place] [address] Methamphetamine, Ur NOT REPORTED Normal NEG [facility] Comment on above: Performed By: #### U AMIC, MARLEEN ####[facility] [address] [place] [address] Propoxyphene,Urine NOT REPORTED Normal NEG [facility] Comment on above: Performed By: #### U AMIC, MARLEEN ####[facility] [address] [place] [address] Urine, tricyclic antidepressants NOT REPORTED Normal NEG [facility] Comment on above: Performed By: #### U AMICruz, MARLEEN ####[address] [address] ED Noteon 02-07-2017 HIM IP Note OR [employer] Normal [facility] HIM IP Note OR [employer] Normal [facility] ED Provider Noteon 7 HIM IP Note OR [employer] Normal [facility] Ethanol Alcoholon 02-07-2017 Ethanol mg/dL Normal <10 [facility] Comment on above: Performed By: #### A LCB ####[address] [address] Ethanol percent <0.010 Normal [facility] Comment on above: Result Comment: [address] [address] Performed By: #### A LCB ####[address] [address] History and Physicalon 02-07 HIM IP Note OR [employer] Normal [facility] UA w reflex C&Son 02-07-2017 Reflex Culture? URINE CULTURE REFLEXED Normal [facility] Comment on above: Performed By: #### P T/INR, PTT ####[address] [place] [address] Urine, crystals in sediment NONE SEEN Normal NONE SEEN [facility] Comment on above: Performed By: #### P T/INR, PTT ####[address] [place] [address] Urine, bacteria in sediment Negative Normal [facility] Comment on above: Performed By: #### P T/INR, PTT ####[address] [place] [address] Urine, mucus presence in sediment Negative Normal NEGATIVE [facility] Comment on above: Performed By: #### P T/INR, PTT ####[address] [place] [address] Urine, casts in sediment NONE SEEN Normal NONE SEEN [facility] Comment on above: Performed By: #### P T/INR, PTT ####[address] [place] [address] Urine, epithelial cells in sediment Negative Normal NEGATIVE [facility] Comment on above: Performed By: #### P T/INR, PTT ####[address] [place] [address] Erythrocytes (RBC) 0-4/HPF Normal NONE SEEN [facility] Comment on above: Performed By: #### P T/INR, PTT ####[address] [address] [place] [address] WBC (Leukocytes) NONE SEEN Normal NONE SEEN [facility] Comment on above: Performed By: #### P T/INR, PTT ####[address] [place] [address] Urine, leukocyte esterase presence Negative Normal NEGATIVE [facility] Comment on above: Performed By: #### P T/INR, PTT ####[address] [place] [address] Urine, nitrite presence Negative Normal NEGATIVE [facility] Comment on above: Performed By: #### P T/INR, PTT ####[address] [place] [address] Urobilinogen, Dipstick 0.2 Normal 0.2 - 1.0 [facility] Comment on above: Performed By: #### P T/INR, PTT ####[address] [place] [address] Protein, Qual Negative Normal NEGATIVE [facility] Comment on above: Performed By: #### P T/INR, PTT ####[address] [place] [address] Urine, pH 7.0 [pH] Normal 5.0 - 9.0 [facility] Comment on above: Performed By: #### P T/INR, PTT ####[address] [place] [address] Blood, Dipstick TRACE Abnormal NEGATIVE [facility] Comment on above: Performed By: #### P T/INR, PTT ####[address] [place] [address] Urine, specific gravity 1.015 Normal 1.005 - 1.030 [facility] Comment on above: Performed By: #### P T/INR, PTT ####[address] [place] [address] Ketone, Dipstick Negative Normal NEGATIVE [facility] Comment on above: Performed By: #### P T/INR, PTT ####[address] [place] [address] Bilirubin (direct) Negative Normal NEGATIVE [facility] Comment on above: Performed By: #### P T/INR, PTT ####[address] [place] [address] Glucose mass conc Negative Normal NEGATIVE [facility] Comment on above: Performed By: #### P T/INR, PTT ####[address] [place] [address] Urine, character CLEAR Normal CLEAR [facility] Comment on above: Performed By: #### P T/INR, PTT ####[address] [place] [address] Urine, color YELLOW Normal [facility] Comment on above: Performed By: #### P T/INR, PTT ####[id number] [place] [address] Urinalysis w/ Microon 2016 ----- Normal [facility] Comment on above: Performed By: #### U AMIC, MARLEEN ####[address] [address] Acetaminophen mass conc Negative Normal NEG [facility] Comment on above: Performed By: #### U AMIC, MARLEEN ####[address] [address] Bilirubin (direct) Negative Normal NEG [facility] Comment on above: Performed By: #### U AMIC, MARLEEN ####[address] [address] Hemoglobin mass conc (Bld) LARGE Abnormal NEG [facility] Comment on above: Performed By: #### U AMIC, MARLEEN ####[address] [address] Nitrite,Ur Negative Normal NEG [facility] Comment on above: Performed By: #### U AMIC, MARLEEN ####[address] [address] Turbidity CLEAR Normal CLEAR [facility] Comment on above: Performed By: #### U AMIC, MARLEEN ####[address] [address] Urine WBC's 0 TO 2 Normal 0-5 [facility] Comment on above: Performed By: #### U AMIC, MARLEEN ####[address] [place] [address] Urine, casts in sediment 0 TO 2 HYALINE Normal 0-8 [facility] Comment on above: Result Comment: Refe rence range defined for non-centrifuged specimen. Performed By: #### U AMIC, MARLEEN ####[address] [address] Urine, color YELLOW Normal YEL [facility] Comment on above: Performed By: #### U AMIC, MARLEEN ####[address] [address] Urine, epithelial cells in sediment 0 TO 2 Normal 0-5 [facility] Comment on above: Result Comment: [address] [address] Performed By: #### U AMIC, MARLEEN ####[address] [address] Urine, erythrocytes 2 TO 5 Normal 0-4 [facility] Comment on above: Result Comment: Refe rence range defined for non-centrifuged specimen. Performed By: #### U AMIC, MARLEEN ####[address] [address] Urine, glucose presence Negative Normal NEG [facility] Comment on above: Performed By: #### U AMIC, MARLEEN ####[address] [address] Urine, leukocyte esterase presence Negative Normal NEG [facility] Comment on above: Performed By: #### U AMIC, MARLEEN ####[address] [address] Urine, pH 6.0 [pH] Normal 5.0-8.0 [facility] Comment on above: Performed By: #### U AMIC, MARLEEN ####[address] [address] Urine, protein presence Negative Normal NEG [facility] Comment on above: Performed By: #### U AMIC, MARLEEN ####[address] [address] Urine, specific gravity 1.013 Normal 1.005-1.030 [facility] Comment on above: Performed By: #### U AMIC, MARLEEN ####[address] [address] Urobilinogen,Ur Normal Normal NORM [facility] Comment on above: Performed By: #### U AMIC, MARLEEN ####[address] [address] Epithelial, Renal NOT REPORTED Normal 0 [facility] Comment on above: Performed By: #### U AMIC, MARLEEN ####[address] [address] Mucus Strands NOT REPORTED Normal NONE [facility] Comment on above: Performed By: #### U AMIC, MARLEEN ####[address] [address] Other Observations NOT REPORTED Normal NREQ [facility] Comment on above: Performed By: #### U AMIC, MARLEEN ####[address] [address] Trichomonas NOT REPORTED Normal NONE [facility] Comment on above: Performed By: #### U AMIC, MARLEEN ####[address] [address] Urine, amorphous sediment presence in sediment NOT REPORTED Normal NONE [facility] Comment on above: Performed By: #### U AMIC, MARLEEN ####[address] [address] Urine, bacteria in sediment NOT REPORTED Normal NONE [facility] Comment on above: Performed By: #### U AMIC, MARLEEN ####[address] [place] [address] Urine, crystals in sediment NOT REPORTED Normal NONE [facility] Comment on above: Performed By: #### U AMIC, MARLEEN ####[address] [place], [place] [id number] Urine, yeast presence in sediment NOT REPORTED Normal NONE [facility] Comment on above: Performed By: #### U AMIC, MARLEEN ####[address] [place], [place] [id number] XR CHEST PA OR AP (1 VIEW)on [...] electronically signed by: Dr. Chilo Fernandez [facility] XR SHOULDER RTon 02-07-2017 XR [...] signed by: Dr. Chilo Fernandez Normal [facility] APTTon 02-06-2017 aPTT 29.1 s Normal 23.0 - 37.0 [facility] Comment on above: Performed By: #### P T/INR, PTT ####[address] [place] [address] Basic Metabolic Panelon 01-23 eGFR (non-black) 108.65 Normal [facility] Comment on above: Result Comment: eGFR Interpretation:Normal: Equal to or greater than 60 mL/min/1.73 meters squaredChronic Kidney Disease: Less than 60 mL/min/1.73 meters squaredKidney Failure: Less than 15 mL/min/1.73 meters squared Performed By: #### B MP, LIVER PROFILE ####[address] [place], [place] [address] eGFR (non-black) 114.39 Normal [facility] Comment on above: Result Comment: eGFR Interpretation:Normal: Equal to or greater than 60 mL/min/1.73 meters squaredChronic Kidney Disease: Less than 60 mL/min/1.73 meters squaredKidney Failure: Less than 15 mL/min/1.73 meters squared Performed By: #### B MP, LIVER PROFILE ####[address] [place] [address] eGFR (non-black) 108.1 Normal [facility] Comment on above: Result Comment: eGFR Interpretation:Normal: Equal to or greater than 60 mL/min/1.73 meters squaredChronic Kidney Disease: Less than 60 mL/min/1.73 meters squaredKidney Failure: Less than 15 mL/min/1.73 meters squared Performed By: #### B MP, LIVER PROFILE ####[address] [place] [address] eGFR (non-black) 81.88 Normal [facility] Comment on above: Result Comment: eGFR Interpretation:Normal: Equal to or greater than 60 mL/min/1.73 meters squaredChronic Kidney Disease: Less than 60 mL/min/1.73 meters squaredKidney Failure: Less than 15 mL/min/1.73 meters squared Performed By: #### B MP, LIVER PROFILE ####[address] [place] [address] eGFR (non-black) 125.60 Normal [facility] Comment on above: Performed By: #### B MP, LIVER PROFILE ####[address] [place] [address] eGFR (non-black) 132.24 Normal [facility] Comment on above: Performed By: #### B MP, LIVER PROFILE ####[address] [place] [address] eGFR (non-black) 124.64 Normal [facility] Comment on above: Performed By: #### B MP, LIVER PROFILE ####[address] [place] [address] eGFR (non-black) 94.39 Normal [facility] Comment on above: Performed By: #### B MP, LIVER PROFILE ####[address] [place] [address] Age 26 year(s) Normal [facility] Comment on above: Performed By: #### B MP, LIVER PROFILE ####[address] [place] [address] Calcium 10.1 mg/dL Normal 8.4 - 10.2 [facility] Comment on above: Performed By: #### B MP, LIVER PROFILE ####[address] [place] [address] Chloride 103 mmol/L Normal 98 - 107 [facility] Comment on above: Performed By: #### B MP, LIVER PROFILE ####[address] [place] [address] CO2 25 mmol/L Normal 22 - 32 [facility] Comment on above: Performed By: #### B MP, LIVER PROFILE ####[address] [place] [address] Creatinine 0.96 mg/dL Normal 0.52 - 1.04 [facility] Comment on above: Performed By: #### B MP, LIVER PROFILE ####[address] [place] [address] Glucose mass conc 126 mg/dL High 65 - 100 [facility] Comment on above: Performed By: #### B MP, LIVER PROFILE ####[address] [place] [address] Potassium molar conc 3.9 mmol/L Normal 3.6 - 5.0 [facility] Comment on above: Performed By: #### B MP, LIVER PROFILE ####[address] [place] [address] Sodium 139 mmol/L Normal 135 - 145 [facility] Comment on above: Performed By: #### B MP, LIVER PROFILE ####[address] [place] [address] Urea nitrogen 20 mg/dL High 7 - 17 [facility] Comment on above: Performed By: #### B MP, LIVER PROFILE ####[address] [place] [address] CBC W Auto Differentialon Abs Neut # 9.0 10 X 3/mm High 1.8 - 7.7 [facility] Comment on above: Performed By: #### C BC Auto Diff ####[address] [place] [address] Basophils/100 WBC Auto (Bld) 1 % High 0 - 1 [facility] Comment on above: Performed By: #### C BC Auto Diff ####[address] [place] [address] Eosinophils 0.1 10 X 3/mm Normal 0.0 - 0.5 [facility] Comment on above: Performed By: #### C BC Auto Diff ####[address] [place] [address] Eosinophils/100 leukocytes 1 % Normal 0 - 5 [facility] Comment on above: Performed By: #### C BC Auto Diff ####[address] [place] [address] Erythrocyte distribution width Auto Ratio (RBC) 15.1 % High 11.5 - 14.5 [facility] Comment on above: Performed By: #### C BC Auto Diff ####[address] [place] [address] Erythrocytes (RBC) 4.28 10 X 6/mm Normal 4.20 - 5.40 [facility] Comment on above: Performed By: #### C BC Auto Diff ####[address] [place] [address] Hematocrit (HCT) 36.3 % Normal 36.0 - 47.0 [facility] Comment on above: Performed By: #### C BC Auto Diff ####[address] [place] [address] Hemoglobin mass conc (Bld) 12.4 g/dL Normal 12.0 - 16.0 [facility] Comment on above: Performed By: #### C BC Auto Diff ####[address] [place] [address] Lymphocytes 2.3 10 X 3/mm Normal 1.0 - 4.0 [facility] Comment on above: Performed By: #### C BC Auto Diff ####[address] [place] [address] Lymphocytes/100 leukocytes 19 % Low 20 - 40 [facility] Comment on above: Performed By: #### C BC Auto Diff ####[address] [place] [address] MCH 29.0 pg Normal 27.0 - 35.0 [facility] Comment on above: Performed By: #### C BC Auto Diff ####[address] [place] [address] MCHC mass conc (RBC) 34.2 g/dL Normal 32.0 - 36.0 [facility] Comment on above: Performed By: #### C BC Auto Diff ####[address] [place] [address] MCV 84.9 fL Normal 80.0 - 100.0 [facility] Comment on above: Performed By: #### C BC Auto Diff ####[address] [place] [address] Monocytes/100 leukocytes 6 % Normal 1 - 15 [facility] Comment on above: Performed By: #### C BC Auto Diff ####[address] [place] [address] Neutrophils/100 WBC Auto (Bld) 74 % High 50 - 70 [facility] Comment on above: Performed By: #### C BC Auto Diff ####[address] [place] [address] Platelet mean volume (PMV) 8.0 fL Normal 7.5 - 11.5 [facility] Comment on above: Performed By: #### C BC Auto Diff ####[address] [place] [address] Platelets 454 uLx10 High 150 - 450 [facility] Comment on above: Performed By: #### C BC Auto Diff ####[address] [place] [address] WBC (Leukocytes) 12.2 10 X 3/mm High 3.7 - 11.0 [facility] Comment on above: Performed By: #### C BC Auto Diff ####[address] [place] [address] CT BRAIN WOon 02-06-2017 Thyroid stimulating hormone [...] electronically signed by: Dr. Zaire Babcock [facility] CT CERVICAL SPINE WOon 02-06 [...] electronically signed by: Dr. Mahamed King [facility] CT SINUS/FACIAL WOon 017 CT [...] electronically signed by: Dr. Hal Ayoub Normal [facility] Hepatic Function Panelon Alanine aminotransferase (ALT) 30 U/L Normal 7 - 52 [facility] Comment on above: Performed By: #### B MP, LIVER PROFILE ####[place] [address] [place] [address] Albumin 3.8 g/dL Normal 3.5 - 5.0 [facility] Comment on above: Performed By: #### B MP, LIVER PROFILE ####[place] [address] [place] [address] Alkaline phosphatase (ALP) 63 U/L Normal 38 - 126 [facility] Comment on above: Performed By: #### B MP, LIVER PROFILE ####[place] [address] [place] [address] Aspartate aminotransferase (AST) 22 U/L Normal 14 - 36 [facility] Comment on above: Performed By: #### B MP, LIVER PROFILE ####[place] [address] [place] [address] Bilirubin (direct) 0.0 mg/dL Normal 0.0 - 0.2 [facility] Comment on above: Performed By: #### B MP, LIVER PROFILE ####[place] [address] [place] [address] Bilirubin (total) 0.8 mg/dL Normal 0.2 - 1.3 [facility] Comment on above: Performed By: #### B MP, LIVER PROFILE ####[place] [address] [place] [address] Protein 6.9 g/dL Normal 6.3 - 8.2 [facility] Comment on above: Performed By: #### B MP, LIVER PROFILE ####[address] [place] [address] PT/INRon 02-06-2017 INR Coag RelTime (Bld) See Comments Normal [facility] Comment on above: Result Comment: Weston [...] Performed By: #### P T/INR, PTT ####[address] [place] [address] INR Coag RelTime (PPP) 0.94 Normal 0.90 - 1.10 [facility] Comment on above: Performed By: #### P T/INR, PTT ####[address] [place] [address] Prothrombin time (PT) Coag time (PPP) 12.6 s Normal [facility] Comment on above: Performed By: #### P T/INR, PTT ####[address] [place] [address] Troponin I, Extra Sensitiveo n 02-06-2017 Troponin I.cardiac mass conc ng/mL Normal 0.000 - 0.034 [facility] Comment on above: Result Comment: Limi t of Detection: <0.012 ng/mLAt Risk of Myocardial Damage: 0.012-0.034 ng/mLProbable Myocardial Damage: >0.034 ng/mL Performed By: #### T ROPONIN I ####[place] [address] [place] [address] hCG, Qualitative-Serumon Internal Control ACCEPTABLE Normal [facility] Comment on above: Performed By: #### H CG,QUAL SERUM ####[place] [address] [place], [place] [id number] hCG, Qualitative-Serum Negative Normal NEGATIVE [facility] Comment on above: Performed By: #### H CG,QUAL SERUM ####[place] [id number] [place], [place] [id number] Vital Signs Date Time Vital Sign Value Performing Clinician Facility 01-22-2025 14:02-0400 Body mass index (BMI) [Ratio] 34.58 kg/m2 Eric Elayne DO Work Phone: [facility] 01-22-2025 14:02-0400 Body weight 94.26 kg Eric Elayne DO Work Phone: [facility] 01-22-2025 14:02-0400 Diastolic blood pressure 70 mm[Hg] Eric Elayne DO Work Phone: [facility] 01-22-2025 14:02-0400 Systolic blood pressure 116 mm[Hg] Eric Elayne DO Work Phone: [facility] 01-09-2025 13:45-0400 Body mass index (BMI) [Ratio] 34.11 kg/m2 Eric Elayne DO Work Phone: [facility] 01-09-2025 13:45-0400 Body weight 92.99 kg Eric Elayne DO Work Phone: [facility] 01-09-2025 13:45-0400 Diastolic blood pressure 78 mm[Hg] Eric Elayne DO Work Phone: [facility] 01-09-2025 13:45-0400 Systolic blood pressure 118 mm[Hg] Eric Elayne DO Work Phone: [facility] 12-25-2024 14:28-0400 Body mass index (BMI) [Ratio] 33.91 kg/m2 Eric Elayne DO Work Phone: [facility] 12-25-2024 14:28-0400 Body weight 92.42 kg Eric Elayne DO Work Phone: [facility] 12-25-2024 14:28-0400 Diastolic blood pressure 80 mm[Hg] Eric Elayne DO Work Phone: [facility] 12-25-2024 14:28-0400 Systolic blood pressure 110 mm[Hg] Eric Elayne DO Work Phone: [facility] 12-13-2024 14:59-0400 Body mass index (BMI) [Ratio] 34.78 kg/m2 Eric Elayne DO Work Phone: [facility] 12-13-2024 14:59-0400 Body weight 94.8 kg Eric Elayne DO Work Phone: [facility] 12-13-2024 14:59-0400 Diastolic blood pressure 78 mm[Hg] Eric Elayne DO Work Phone: [facility] 12-13-2024 14:59-0400 Systolic blood pressure 120 mm[Hg] Eric Elayne DO Work Phone: [facility] 11-28-2024 14:25-0400 Body mass index (BMI) [Ratio] 34.61 kg/m2 Eric Elayne DO Work Phone: [facility] 11-28-2024 14:25-0400 Body weight 94.35 kg Eric Elayne DO Work Phone: [facility] 11-28-2024 14:25-0400 Diastolic blood pressure 76 mm[Hg] Eric Elayne DO Work Phone: [facility] 11-28-2024 14:25-0400 Systolic blood pressure 120 mm[Hg] Eric Elayne DO Work Phone: [facility] 11-07-2024 13:37-0400 Body mass index (BMI) [Ratio] 35.11 kg/m2 Eric Elayne DO Work Phone: [facility] 11-07-2024 13:37-0400 Body weight 95.71 kg Eric Elayne DO Work Phone: [facility] 11-07-2024 13:37-0400 Diastolic blood pressure 72 mm[Hg] Eric Elayne DO Work Phone: [facility] 11-07-2024 13:37-0400 Systolic blood pressure 122 mm[Hg] Eric Elayne DO Work Phone: [facility] 09-18-2024 13:47-0500 Body mass index (BMI) [Ratio] 31.92 kg/m2 Loraine [place] PA Work Phone: [facility] 09-18-2024 13:47-0500 Body weight 87 kg Loraine Elmer PA Work Phone: [facility] 09-18-2024 13:47-0500 Diastolic blood pressure 76 mm[Hg] Loraine [place] PA Work Phone: [facility] 09-18-2024 13:47-0500 Systolic blood pressure 116 mm[Hg] Loraine [place] PA Work Phone: [facility] 09-08-2024 15:52-0500 Body height 165.1 cm [facility] 09-08-2024 15:52-0500 Body mass index (BMI) [Ratio] 58.6 kg/m2 [facility] 09-08-2024 15:52-0500 Body temperature 98.9 [degF] [facility] 09-08-2024 15:52-0500 Body weight 160 kg [facility] 09-08-2024 15:52-0500 Diastolic blood pressure 78 mm[Hg] [facility] 09-08-2024 15:52-0500 Heart rate 105 /min [facility] 09-08-2024 15:52-0500 Respiratory rate 18 /min [facility] 09-08-2024 15:52-0500 SaO2% (BldA) [Mass fraction] 97 % [facility] 09-08-2024 15:52-0500 Systolic blood pressure 120 mm[Hg] [facility] 08-21-2024 13:18-0500 Body mass index (BMI) [Ratio] 31.12 kg/m2 Eric Elayne DO Work Phone: [facility] 08-21-2024 13:18-0500 Body weight 84.82 kg Eric Elayne DO Work Phone: [facility] 08-21-2024 13:18-0500 Diastolic blood pressure 70 mm[Hg] Eric Elayne DO Work Phone: [facility] 08-21-2024 13:18-0500 Systolic blood pressure 120 mm[Hg] Eric Elayne DO Work Phone: [facility] 07-21-2024 11:10-0500 Body mass index (BMI) [Ratio] 29.45 kg/m2 Nom Nurse [facility] 07-21-2024 11:10-0500 Body weight 80.29 kg [facility] Nurse [facility] 07-21-2024 11:10-0500 Diastolic blood pressure 76 mm[Hg] [facility] Nurse [facility] 07-21-2024 11:10-0500 Systolic blood pressure 124 mm[Hg] [facility] Nurse [facility] 06-08-2024 10:32-0500 Body height 165.1 cm [facility] 06-08-2024 10:32-0500 Body mass index (BMI) [Ratio] 29.1 kg/m2 [facility] 06-08-2024 10:32-0500 Body temperature 97.5 [degF] [facility] 06-08-2024 10:32-0500 Body weight 79.37 kg [facility] 06-08-2024 10:32-0500 Diastolic blood pressure 89 mm[Hg] [facility] 06-08-2024 10:32-0500 Heart rate 93 /min [facility] 06-08-2024 10:32-0500 Respiratory rate 18 /min [facility] 06-08-2024 10:32-0500 SaO2% (BldA) [Mass fraction] 98 % [facility] 06-08-2024 10:32-0500 Systolic blood pressure 130 mm[Hg] [facility] 04-21-2024 13:40-0400 Body height 165.1 cm [facility] 04-21-2024 13:40-0400 Body mass index (BMI) [Ratio] 28.1 kg/m2 [facility] 04-21-2024 13:40-0400 Body temperature 99.4 [degF] [facility] 04-21-2024 13:40-0400 Body weight 76.82 kg [facility] 04-21-2024 13:40-0400 Diastolic blood pressure 84 mm[Hg] [facility] 04-21-2024 13:40-0400 Heart rate 85 /min [facility] 04-21-2024 13:40-0400 Respiratory rate 18 /min [facility] 04-21-2024 13:40-0400 SaO2% (BldA) [Mass fraction] 99 % [facility] 04-21-2024 13:40-0400 Systolic blood pressure 126 mm[Hg] [facility] 12-22-2023 18:07-0400 Body height 165.1 cm [facility] 12-22-2023 18:07-0400 Body mass index (BMI) [Ratio] 27.8 kg/m2 [facility] 12-22-2023 18:07-0400 Body temperature 98.7 [degF] [facility] 12-22-2023 18:07-0400 Body weight 75.74 kg [facility] 12-22-2023 18:07-0400 Heart rate 84 /min [facility] 12-22-2023 18:07-0400 Respiratory rate 18 /min [facility] 12-22-2023 18:07-0400 SaO2% (BldA) [Mass fraction] 99 % [facility] Encounters Encounter Date Encounter Type Care Provider Facility Start: 01-22-2025 End: 01-22-2025 Bamboo flowsheet Eric Elayne DO Work Phone: [facility] Start: 01-22-2025 End: 01-22-2025 Bamboo flowsheet Eric Elayne DO Work Phone: [facility] Start: 01-22-2025 End: 01-22-2025 Office outpatient visit 15 minutes Eric Elayne DO Work Phone: [facility] Comment on above: Third trimester preg chester ([facility]); 36 weeks gestation of ([facility]) Start: 01-18-2025 End: 01-18-2025 Clinisync Result Encounter [...] Comment on above: Third trimester preg chester ([facility]); 34 weeks gestation of ([facility]); H/O pre-eclampsia in prior , currently ([facility]); Diet controlled gestational diabetes mellitus (GDM), antepartum ([facility]) Start: 01-03-2025 End: 01-03-2025 Clinisync Result Encounter [...] Unsolicited Start: 10-09-2024 End: 10-09-2024 ambulatory ERIC OROZCOO Not Available Start: 09-18-2024 End: 09-18-2024 Bamboo [...] Not Available Start: 09-08-2024 End: 09-08-2024 ambulatory [facility] Work Phone: Start: 09-08-2024 End: 09-08-2024 Patient encounter procedure [facility] Work Phone: Start: 09-06-2024 [...] GA: 10w0d Start: 06-08-2024 End: 06-08-2024 ambulatory [facility] Work Phone: Start: 06-08-2024 End: 06-08-2024 Patient encounter procedure [facility] Work Phone: Start: 04-21-2024 End: 04-21-2024 ambulatory [facility] Work Phone: Start: 04-21-2024 End: 04-21-2024 Patient encounter procedure Count Includes [facility] Work Phone: Start: 12-22-2023 End: 12-22-2023 ambulatory [facility] Work Phone: Start: 12-22-2023 End: 12-22-2023 Patient encounter procedure Count Includes [facility] Work Phone: Start: 12-01-2022 ambulatory Facility:[facility] [place] Start: 08-24-2022 End: 08-25-[address] MECHE LE Facility:[facility] Start: 08-19-2022 End: 08-19-[address] ERIC HOLLY Facility:[facility] Start: 07-30-2022 End: 07-30-2022 ambulatory LEANDRO VERDUZCO Facility:[facility] Start: 03-11-2022 End: 03-11-[address] ERIC HOLLY Facility:[facility] Start: 11-23-2021 End: 11-23-2021 ambulatory LEANDRO VERDUZCO Facility:[facility] Start: 02-07-2017 End: 02-07-2017 Ambulatory [facility] Start: 02-06-2017 End: 02-07-2017 Emergency department patient visit IBRAHIMA WARE Facility:[facility] Procedures Date Procedure Procedure Detail Performing Clinician Start: 01-22-2025 Urnls dip stick/tabl et rgnt non-auto w/o micrscp Eric Elayne DO Work Phone: Start: 01-18-2025 US OB BPP W NON-STRESS [...] Work Phone: Start: 11-16-2024 [facility] (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 Eric Elayne DO Work Phone: [...] IP CONSULT TO ORTHOP EDIC SURGERY [facility] K[facility] PRICILA Start: 02-07-2017 NURSING COMMUNICATION P SHARLENE ESTRADA [facility] Start: 02-07-2017 DISCHARGE PATIENT ALTA GOODRICH Start: 02-07-2017 URINALYSIS WITH MICROSCOPIC [facility] KERN PRICILA Start: 02-07-2017 URINE DRUG SCREEN [facility]TA [facility]RICH Start: 02-07-2017 DIET GENERAL ALTA ESTRADA SA RODRIGUEZ [facility]CN[facility] Start: 02-07-2017 ETHANOL ALTA SEAN RODRIGUEZ MCNULTY Start: 02-07-2017 FULL CODE [facility]CN[facility] Start: 02-07-2017 NOTIFY PHYSICIAN (SPECIFY) ALTA [facility]RICH Start: 02-07-2017 OT EVAL AND TREAT ALTA [facility]RICH Start: 02-07-2017 PT EVAL AND TREAT [facility]TA [facility]RICH Start: 02-07-2017 REASON FOR NO MECHAN ICAL VTE PROPHYLAXIS ALTA KERN PRIICLA Start: 02-07-2017 VITAL SIGNS ALTA DA SILVA RODRIGUEZ MCNULTY Start: 02-07-2017 PATIENT STATUS (FROM ED OR OR/PROCEDURAL) [facility] K[facility] PRICILA Start: 02-07-2017 Slings [facility]CNULTY Start: 02-07-2017 IP CONSULT TO TRAUMA SURGERY [facility]TA KERN PRICILA Plan of Treatment Date Care Activity Detail Author Start: 09-18-2025 Screening for malign ant neoplasm of cervix [facility] Start: 03-26-2025 Influenza vaccination Influenz a Vaccine (Season Ended) [facility] Start: 01-22-2025 End: 01-22-2026 CULTURE, GROUP B STREP WITH SUSCEPTIBLITY CULTURE, GROUP B STREP WITH SUSCEPTIBLITY Lab Routine Third trimester ([facility]) Expected: 01/22/2025, Expires: 01/22/2026 [facility] Work Phone: Comment on above: Expected: 01/22/2025 , Expires: 01/22/2026 Start: 01-22-2025 End: 01-22-2025 Patient encounter procedure 01/22/2025 1:30 PM EDT Routine [facility] [address] [facility] [id number] Eric Holly, DO [address] [place], [place] [id number] [facility] Start: 01-09-2025 End: 01-09-2025 Patient encounter procedure 01/09/2025 1:40 PM EDT Routine [facility] [address] [facility] [place] [id number] Eric Holly, DO [address] [place] [address] [facility] Start: 12-25-2024 End: 12-25-2024 Patient encounter procedure 12/25/2024 2:00 PM EDT Routine [facility] [address] [facility] [id number] Eric Holly, DO [address] [place] [address] [facility] Start: 12-13-2024 End: 12-13-2024 Patient encounter procedure [facility] Comment on above: Arrived Start: 12-13-2024 End: 06-15-2025 US biophysical profile w non stress test US biophysical profile w non stress test Imaging Routine Gestational diabetes mellitus (GDM), antepartum, gestational diabetes method of control unspecified Expected: 12/13/2024 (Approximate), Expires: 06/15/2025 [facility] Comment on above: Expected: 12/13/2024 (Approximate), Expires: 06/15/2025 Start: 12-13-2024 End: 04-15-2025 US for US OB follow up transabdominal approach Imaging Routine Gestational diabetes mellitus (GDM), antepartum, gestational diabetes method of control unspecified Expected: 12/13/2024, Expires: 04/15/2025 [facility] Work Phone: Comment on above: Expected: 12/13/2024 , Expires: 04/15/2025 Start: 11-28-2024 End: 11-28-2024 Patient encounter procedure 11/28/2024 1:50 PM EDT Routine [facility] [address] [facility] [place] [address] Eric Holly, DO [address] [place], [place] [id number] [facility] Start: 11-07-2024 End: 11-07-2025 CBC panel - Blood by Automated count CBC Lab Routine Diabetes mellitus screening Expected: 11/07/2024 (Approximate), Expires: 11/07/2025 [facility] Work Phone: Comment on above: Expected: 11/07/2024 (Approximate), Expires: 11/07/2025 Start: 11-07-2024 End: 11-07-2025 Measurement of glucose 1 hour after glucose challenge for glucose tolerance test Glucose tolerance, 1 hour Lab Routine Diabetes mellitus screening Expected: 11/07/2024 (Approximate), Expires: 11/07/2025 [facility] Comment on above: Expected: 11/07/2024 (Approximate), Expires: 11/07/2025 Start: 11-07-2024 End: 11-07-2024 Patient encounter procedure 11/07/2024 1:20 PM EDT Routine [facility] [address] [facility] [facility] [place] [phone] Eric Holly, DO [address] [place], [place] [id number] [facility] Start: 10-16-2024 End: 10-16-2024 Patient encounter procedure 10/16/2024 2:20 PM EDT Routine [facility] [address] [facility] [facility] [place] [phone] Eric Holly, DO [address] [facility] [place] [address] [facility] Start: 09-18-2024 End: 03-18-2025 Alpha fetoprotein, maternal Alpha fetoprotein, maternal Lab Routine Second trimester 18 weeks gestation of Expected: 09/18/2024 (Approximate), Expires: 03/18/2025 [facility] Comment on above: Expected: 09/18/2024 (Approximate), Expires: 03/18/2025 Start: 09-18-2024 End: 09-18-2025 US for US OB 14+ weeks anatomy scan Imaging Routine Screening, , for anatomic survey Expected: 09/18/2024, Expires: 09/18/2025 [facility] Comment on above: Expected: 09/18/2024 [...] first trimester Expected: 07/21/2024 (Approximate), Expires: 07/21/2025 [facility] Comment on above: Expected: 07/21/2024 (Approximate), Expires: 07/21/2025 Start: 07-21-2024 End: 07-21-2025 US Pelvis transvaginal US OB transvaginal Imaging Routine Missed menses Expected: 07/21/2024 (Approximate), Expires: 07/21/2025 [facility] Comment on above: Expected: 07/21/2024 (Approximate), Expires: 07/21/2025 Bacteria identified in Urine by Culture Urine culture Microbiology Routine Missed menses Ordered: 07/21/2024 [facility] Comment on above: Ordered: 07/21/2024 CBC W Auto Different ial panel - Blood CBC and differential Lab Routine Missed menses , unspecified gestational age Ordered: 07/21/2024 [facility] Comment on above: Ordered: 07/21/2024 CHLAMYDIA TRACHOMATI S (GENITO/STI) CHLAMYDIA TRACHOMATIS (GENITO/STI) Lab Routine STD exposure Ordered: 09/18/2024 [facility] Comment on above: Ordered: 09/18/2024 Cytology Cervical or vaginal smear or scraping study Pap Smear Pathology and Cytology Routine Well woman exam with routine gynecological exam Ordered: 09/18/2024 [facility] Comment on above: Ordered: 09/18/2024 Hemoglobin A1c/Hemoglobin.total in Blood Hemoglobin A1c Lab Routine Missed menses , unspecified gestational age Ordered: 07/21/2024 [facility] Comment on above: Ordered: 07/21/2024 Hepatitis B virus surface Ag [Presence] in Serum or Plasma by Immunoassay Hepatitis B surface antigen Lab Routine Missed menses , unspecified gestational age Ordered: 07/21/2024 [facility] Comment on above: Ordered: 07/21/2024 Hepatitis C virus Ab [Presence] in Serum or Plasma by Immunoassay Hepatitis C antibody Lab Routine Missed menses , unspecified gestational age Ordered: 07/21/2024 [facility] Comment on above: Ordered: 07/21/2024 HIV-1/HIV-2 antigen/antibody combination immunoassay HIV-1 and HIV-2 antibodies Lab Routine Missed menses , unspecified gestational age Ordered: 07/21/2024 [facility] Comment on above: Ordered: 07/21/2024 Human papilloma viru s DNA [Presence] in Unspecified specimen by Probe with amplification HPV DNA probe, amplified Microbiology Routine Well woman exam with routine gynecological exam Ordered: 09/18/2024 [facility] Comment on above: Ordered: 09/18/2024 Neisseria gonorrhoea e DNA [Presence] in Unspecified specimen by JESS with probe detection Neisseria gonorrhea DNA probe, direct Lab Routine STD exposure Ordered: 09/18/2024 [facility] Comment on above: Ordered: 09/18/2024 Reagin Ab [Presence] in Serum by RPR RPR Lab Routine Missed menses , unspecified gestational age Ordered: 07/21/2024 [facility] Comment on above: Ordered: 07/21/2024 Rubella antibody, IgG Rubella an tibody, IgG Lab Routine Missed menses , unspecified gestational age Ordered: 07/21/2024 [facility] Comment on above: Ordered: 07/21/2024 SURESWAB(R) ADVANCED VAGINITIS PLUS, TMA SURESWAB(R) ADVANCED VAGINITIS PLUS, TMA Pathology and Cytology Routine Vaginal discharge Ordered: 09/18/2024 [facility] Work Phone: Comment on above: Ordered: 09/18/2024 Payers Date Payer Category Payer Medicaid [facility] [id number] 2022 Medicaid [id number] 2019 Unknown [id number] 2017 Unknown 2014 Unknown [id number] 1990 Unknown [id number] [id number] 1990 Unknown [id number] 2.16.840.1.172786.3.579.2.593 1990 Unknown [id number] 2.16.840.1.199390.3.579.2.593 1990 Unknown [id number] 2.16.840.1.948873.3.579.2.593 1990 Unknown [id number] 2.16.840.1.143847.3.579.2.59 1990 Unknown [id number] 2.16.840.1.670964.3.579.2.727 1990 Unknown [id number] 2.16.840.1.792116.3.579.2.1259 1990 Unknown [id number] 2.16.840.1.700315.3.579.2.125 1990 Unknown [id number] 2.16.840.1.799179.3.579.2.1258 1990 Unknown [id number] 2.16.840.1.443127.3.579.2.9 1990 Unknown [id number] 2.16.840.1.523001.3.579.2.125 1990 Unknown [id number] 2.16.840.1.730742.3.579.2.9 1990 Unknown [id number] 2.16.840.1.573108.3.579.2.9 1990 Unknown [id number] 2.16.840.1.476306.3.579.2.9 1990 Unknown [id number] [id number] 1959 Unknown [id number] Unknown O [id number] Social History Date Type Detail Facility Start: 03-31-2023 End: 08-11-2023 Tobacco smoking status NHIS Never smoked tobacco (finding) [facility] Start: 1990 Sex Assigned At Female F [facility] Start: 06-08-2024 End: 09-08-2024 Sex Female (finding) [facility] Start: 03-31-2023 Tobacco use and exposure [...] meal for a total of 4times daily. [id number] Start: 11-23-2024 End: 12-25-2024 1 each by In Vit ro route Daily Use to check FSBS four times daily [id number] Start: 11-23-2024 End: 12-23-2024 1 strip by In Vi tro route Daily Use in the morning prior to breakfast, 1 hour after each meal for a total of 4times daily. [id number] Start: 12-25-2024 End: 01-24-2025 1 each by In Vit ro route Daily Use to check FSBS four times daily [id number] Start: 01-01-2025 End: 01-31-2025 Clinical Notes 04-21-2024 to 01-22-2025 Tala Huizar, LAURA - 01/22/2025 1:30 PM EDLiborio Kelly, CARA - 01/09/2025 1:40 PM Pennie Huizar NP - 12/25/2024 2:00 PM Payton Kelly, CARA - 12/13/2024 2:30 PM EDT Note Date & Type Note Facility 01-22-2025 History of Presen t illness Narrative Reason [...] Multiple Vitamins-Minerals (MULTIVITAMIN ADULT, MINERALS, PO) Multivitamin [id number] ( 1 + IRON PO) ALLERGIES Allergies [...] History of pre-eclampsia 08/21/2024 Second trimester ([facility] HEALTH) 08/21/2024 Resolved Ambulatory Problems Diagnosis Date Noted [...] nursing note reviewed. Exam conducted with a internal review and audit compliance present. Vitals: Estimated body mass index is 34.58 kg/m as calculated from the following: Height as of 06/24/23: 5' 5 . Weight as of this encounter: 207 lb 12.8 oz. BP: 116/70 Patient's last menstrual period was 05/14/2024. ASSESSMENT & PLAN ICD-10-CM 1. Third trimester ([facility]) Z34.93 POCT urinalysis dipstick manually resulted CULTURE, GROUP B STREP WITH SUSCEPTIBLITY CULTURE, GROUP B STREP WITH SUSCEPTIBLITY 2. 36 weeks gestation of ([facility]) Z3A.36 POCT urinalysis dipstick manually resulted Return [...] Eric Holly DO documented in this encounter [facility] 01-09-2025 History of Presen t illness Narrative [...] Multiple Vitamins-Minerals (MULTIVITAMIN ADULT, MINERALS, PO) Multivitamin Mfzyojzw-Dqs-Lg-FA ( 1 + IRON PO) ALLERGIES Allergies [...] History of pre-eclampsia 08/21/2024 Second trimester ([facility]) 08/21/2024 Resolved Ambulatory Problems Diagnosis Date Noted [...] nursing note reviewed. Exam conducted with a internal review and audit compliance present. Vitals: Estimated body mass index is 34.11 kg/m as calculated from the following: Height as of 06/24/23: 5' 5 . Weight as of this encounter: 205 lb. BP: 118/78 Patient's last menstrual period was 05/14/2024. ASSESSMENT & PLAN ICD-10-CM 1. Third trimester ([facility]) Z34.93 POCT urinalysis dipstick manually resulted 2. 34 weeks gestation of ([facility]) Z3A.34 3. H/O pre-eclampsia in prior , currently ([facility]) O09.299 4. Diet controlled gestational diabetes mellitus (GDM), antepartum ([facility]) O24.410 Return OB: Patient presents today for [...] Eric Holly DO documented in this encounter [facility] 12-25-2024 History of Presen t [...] Multiple Vitamins-Minerals (MULTIVITAMIN ADULT, MINERALS, PO) Multivitamin Xqicaynx-Yts-Zn-FA ( 1 + IRON PO) ALLERGIES Allergies [...] nursing note reviewed. Exam conducted with a internal review and audit compliance present. Vitals: Estimated body mass index is [...] Eric Holly DO documented in this encounter [facility] 12-13-2024 History of Presen t [...] to check FSBS. Blood Glucose Monitoring Suppl ([place] Glucometer) w/Device kit 1 kit, Does not [...] Multiple Vitamins-Minerals (MULTIVITAMIN ADULT, MINERALS, PO) Multivitamin Rukwymtm-Cgm-Si-FA ( 1 + IRON PO) ALLERGIES Allergies [...] nursing note reviewed. Exam conducted with a internal review and audit compliance present. Vitals: Estimated body mass index is [...] Eric Holly DO documented in this encounter [facility] 11-28-2024 History of Presen t [...] to check FSBS. Blood Glucose Monitoring Suppl ([place] Glucometer) w/Device kit 1 kit, Does not [...] (ProtoNix) 20 MG EC tablet Pantoprazole Sodium Negannls-Oar-Bg-FA ( 1 + IRON PO) ALLERGIES Allergies [...] nursing note reviewed. Exam conducted with a internal review and audit compliance present. Vitals: Estimated body mass index is [...] Eric Holly DO documented in this encounter [facility] 11-07-2024 History of Presen t illness Narrative Reason for Appointment: Patient ID: Abram Villarreal is a 33 y.o. female who presents for Routine Visit Patient presents today for Return OB appointment. MEDICATIONS Current Outpatient Medications Medication Instructions albuterol HFA 90 mcg/act inhaler Every 4 hours Multiple Vitamins-Minerals (MULTIVITAMIN ADULT, MINERALS, PO) Multivitamin pantoprazole (ProtoNix) 20 MG EC tablet Pantoprazole Sodium Vucxmtwr-Xjc-Ri-FA ( 1 + IRON PO) valACYclovir (VALTREX) [...] nursing note reviewed. Exam conducted with a internal review and audit compliance present. Vitals: Estimated body mass index is [...] Eric Holly DO documented in this encounter [facility] 09-18-2024 History of Presen t [...] nursing note reviewed. Exam conducted with a internal review and audit compliance present. Vitals: Estimated body mass index is [...] of: PALLAVI Mccord documented in this encounter [facility] 08-21-2024 History of Presen t [...] or undercooked meat, and stay away [facility]. Patient has been consulted regarding any further [...] Eric Holly DO documented in this encounter [facility] 07-21-2024 History of Presen t [...] or undercooked meat, and stay away from [facility]. Patient has also been advised to not [...] Keiko Bruce MA documented in this encounter [facility] 04-21-2024 Evaluation note Diagnosis Onset Date Resolution Acute right otitis media acute April 21, 2024 1:26pm Viral URI acute June 08, 2024 9:51am [facility] Work Phone: Evaluation note* Diagnosis Onset Date Resolution Status Strep throat acute [facility] Work Phone: Evaluation note* Diagnosis Onset Date Resolution Status Acute right otitis media acu te [facility] Work Phone: Evaluation note* Diagnosis Missed menses [...] with cough acute Febr uary 2024 3:37pm [facility] Work Phone: evaluation note* Diagnosis Well woman [...] antepartum ([facility] Third trimester ([facility]) state, incidental 36 weeks gestation of ([facility]) [facility] [...] and content) DATE CREATED AUTHOR 01/19/2018 [facility] DATE CREATED AUTHOR AUTHOR'S ORGANIZ ATION 01/19/2018 [facility] DATE CREATED AUTHOR AUTHOR'S ORGANIZ ATION 08/26/2022 [facility] DATE CREATED AUTHOR AUTHOR'S ORGANIZ ATION 12/02/2022 [facility] DATE CREATED AUTHOR AUTHOR'S ORGANIZ ATION 01/12/2025 [facility] EPIC Care Teams (unrecognized sec [...] Status: Inactive Member Role Status Dates Violet Sheryl Zaida , HOT SAW OPERATOR-C Primary Care Provider Active Start: June 08, 2024 End: June 08, 2024 Mayte Joiner APRN Attending Provider Active Start: June 08, 2024 End: June 08, 2024 Tube Cutter Relationship Specialty Start Date End Date Cuco Munoz MD [address] [place] [address] PCP - General Family Medicine 06/24/23 Tube Cutter Relationship Specialty Start Date End Date Cuco Munoz MD [address] [place] [address] PCP - General Family Medicine 06/24/23 Tube Cutter Relationship Specialty Start Date End Date Cuco Munoz MD [address] [place], [place] [id number] PCP - General Family Medicine 06/24/23 Tube Cutter Relationship Specialty Start Date End Date Cuco Munoz MD [address] [place] [address] PCP - General Family Medicine 06/24/23 Team Status: Inactive Member Role Status Dates Violet Cerda NP-C Primary Care Provider Active Start: September 08, 2024 End: September 08, 2024 VI Nevarez Active Start: August End: September 08, 2024 Mayte Joiner APRN Attending Provider Active Start: September 08, 2024 End: September 08, 2024 Tube Cutter Relationship Specialty Start Date End Date Cuco Munoz MD [address] [place] [address] PCP - General Family Medicine 06/24/23 Tube Cutter Relationship Specialty Start Date End Date Cuco Munoz MD [address] [place] [address] PCP - General Family Medicine 06/24/23 Tube Cutter Relationship Specialty Start Date End Date Cuco Munoz MD [address] [place] [address] PCP - General Family Medicine 06/24/23 Tube Cutter Relationship Specialty Start Date End Date Cuco Munoz MD [address] [place] [address] PCP - General Family Medicine 06/24/23 Tube Cutter Relationship Specialty Start Date End Date Cuco Munoz MD [address] [place] [address] PCP - General Family Medicine 06/24/23 Tube Cutter Relationship Specialty Start Date End Date Cuco Munoz MD [address] [place] [address] PCP - General Family Medicine 06/24/23 Tube Cutter Relationship Specialty Start Date End Date Cuco Munoz MD [address] [place] [address] PCP - General Family Medicine 06/24/23 Tube Cutter Relationship Specialty Start Date End Date Cuco Munoz MD [address] [place] [address] PCP - General Family Medicine 06/24/23 Tube Cutter Relationship Specialty Start Date End Date Cuco Munoz MD [address] [place] [address] PCP - General Family Medicine 06/24/23 Tube Cutter Relationship Specialty Start Date End Date Cuco Munoz MD [address] [place] [address] PCP - General Family Medicine 06/24/23 Tube Cutter Relationship Specialty Start Date End Date Cuco Munoz MD [address] [place] [address] PCP - General Family Medicine 06/24/23 Tube Cutter Relationship Specialty Start Date End Date Cuco Munoz MD [address] [place] [address] PCP - General Family Medicine 06/24/23 Tube Cutter Relationship Specialty Start Date End Date Cuco Munoz MD [address] [place], [facility] PCP - General Family Medicine 06/24/23 Tube Cutter Relationship Specialty Start Date End Date Cuco Munoz MD [address] [place] [address] PCP - General Family Medicine 06/24/23 Tube Cutter Relationship Specialty Start Date End Date Cuco Munoz MD [address] [place] [address] PCP - General Family Medicine 06/24/23 Goals [...] BE BASED ON THE PRIMARY CLINICAL RECORDS. [facility] [email or web address] [facility] provides no warranty or guarantee of the accuracy or completeness of information in this document.
== END 2025-01-22 20:39 | disposition home or self-care (01) ==
LOC: LAB 20:38
PROVIDERS: Visit Provider Obstetrics & Gynecology
DX: Z34.93 Encounter for supervision of normal pregnancy, unspecified, third trimester (principal); Z3A.36 36 weeks gestation of pregnancy
CPT/HCPCS: 87081

== ENCOUNTER 2025-01-23 15:00 | Outpatient (OUT) | payer MEDICAID, SELFPAY ==
--- OUTSIDE RECORDS SUMMARY | 2024-10-20 10:15 | XMS_ITS ---
Author Organization [facility] Serv es Address [address] [place] [address] Care Team Providers Care Casing Cooker Name Role Phone Suki Mayer Primary Care Provider Halley Nugent Unavailable Clare Talley Unavailable [phone] REASON FOR VISIT BH f/u 2-4 weeks Encounters Encounter Location Date Provider Diagnosis [facility] [address] [place] [address] 10/20/2024 Clare Talley Plan Of Treatment Next Appt Details Provider Name:Karin Knowles, 04/25/2025 03:00:00 PM, [address] [place], [address], Progress Notes * CAROLE NELSONOB:1990 (34 yo F)Acc No.[id number]:10/20/2024 BH F/U - Patient Patient: ABRAM PALOMO Provider: Gerard Talley :1990 A ge:33 Y S ex:Female Date:10/20/2024 Address[address] [place] Pcp:Suki Mayer Subjective: * Chief Complaints: * 1 . BH f/u 2-4 weeks. Objective: Therapeutic Interventions: Assessment: Plan: * Images: Care Plan Details* * Electronic signature of RISHI Torres on 01/23/2025 at 03:02 PM EDT Sign off status: Pending * Provider: Gerard Talley Date: 10/20/2024 Generated for Sujatha Rivera on: 0 01/23/2025 03:02 PM EDT
--- OUTSIDE RECORDS SUMMARY | 2025-01-09 13:40 | XMS_ITS | Encounter Summary ---
Author Organization [facility] Address [address] [place] [address] Care Team Providers Care Dehydrogenation Supervisor Name Role Phone Cuco Munoz MD Primary Care Provider [phone] Reason for Visit * Reason Comments Routine Visit Encounter Details Date Type Department Care Team (Late st Contact Info) Description 01/09/2025 1:40 PM EDT Routine [facility] [address] [place] [address] Eric Holly, DO [address] [facility] [address] [place] [address] Third trimester ([facility]); 34 weeks gestation of ([facility]); H/O pre-eclampsia in prior , currently ([facility]); Diet controlled gestational diabetes mellitus (GDM), antepartum ([facility]) Social History Tobacco Use Types Packs/Day Years [...] Sign Reading Time Taken Comments Blood Pressure 118/78 01/09/2025 1:45 PM EDT Pulse - - Temperature - - Respiratory Rate - - Oxygen Saturation - - Inhaled Oxygen Concentration - - Weight 93 kg (205 lb) 01/09/2025 1:45 PM EDT Height - - Body Mass Index 34.11 06/24/2023 10:09 AM EST documented in this encounter Progress Notes * Libia Kelly, CARA - 01/09/2025 1:40 PM EDT Reason for Appointment: Patient ID: Lynnette Villarreal is a 34 y.o. female who presents for Routine Visit Patient presents today for Return OB appointment. MEDICATIONS Current Outpatient Medications Medication Instructions albuterol HFA 90 mcg/act inhaler Every 4 hours Alcohol Swabs (Alcohol Prep Pad) 70 % pads 1 Pad, Topical, Daily, Use four times daily to check FSBS. Blood Glucose Monitoring Suppl (ONE TOUCH ULTRA 2) w/Device kit USE FOUR TIMES DAILY TO CHECK FASTING BLOOD SUGAR. IN THE MORNING PRIOR TO BREAKFAST & 1 HOUR AFTER EACH MEAL FOR A TOTAL OF 4TIMESDAILY. Glucose Blood (Blood Glucose Test) strip 1 strip, In Vitro, Daily, Use in the morning prior to breakfast, 1 hour after each meal for a total of 4times daily. Lancets Ultra Thin misc 1 each, In Vitro, Daily, Use to check FSBS four times daily Multiple Vitamins-Minerals (MULTIVITAMIN ADULT, MINERALS, PO) Multivitamin Nahqpikr-Fph-Kn-FA ( 1 + IRON PO) ALLERGIES Allergies [...] 08/21/2024 History of pre-eclampsia 08/21/2024 Second trimester ([facility]) 08/21/2024 Resolved Ambulatory Problems Diagnosis Date Noted [...] nursing note reviewed. Exam conducted with a manager of maintenance present. Vitals: Estimated body mass index is 34.11 kg/m?? as calculated from the following: Height as of 06/24/23: 5' 5 . Weight as of this encounter: 205 lb. BP: 118/78 Patient's last menstrual period was 05/14/2024. ASSESSMENT & PLAN ICD-10-CM 1. Third trimester ([facility]) Z34.93 POCT urinalysis dipstick manually resulted 2. 34 weeks gestation of ([facility]) Z3A.34 3. H/O pre-eclampsia in prior , currently ([facility]) O09.299 4. Diet controlled gestational diabetes mellitus (GDM), antepartum ([facility]) O24.410 Return OB: Patient presents today for a routine obstetrics appointment. Patient is currently 34w4d . Patient states she is doing well [...] Care Team (Late st Contact Info) Description 01/29/2025 10:00 AM EDT Routine [facility] [address] [place] [id number] Eric Holly DO [address] [facility] [facility] [place] [address] documented as of this encounter Procedures Procedure Name Priority Date/Time Associated Diagnosis Comments POCT URINALYSIS DIPSTICK Routine 01/09/2025 1:53 PM EDT Third trimester ([facility]) documented in this encounter Results * POCT urinalysis dipstick manually resulted (01/09/2025 1:53 PM EDT) Color, UA Yellow Clarity, UA Clear Glucose, UA Negative Negative - 2000(110) ++++ mg/dL Bilirubin, UA Negative Negative - 4(70) +++ mg/dL Ketones, UA Negative Negative - 160(16) ++++ mg/dL Spec Grav, UA 1.010 1 - 1.03 Blood, UA Negative Negative - 50 Oscar/mcL pH, UA 5.5 5 - 9 Protein, UA Negative Negative - 2000(20) ++++ mg/dL Urobilinogen, UA 0.2 0.2 - 12 mg/dL Leukocytes, UA Positive Negative - 500+++ Mike/mcL Comment:small Nitrite, UA Negative Negative - Positive Urine 01/09/2025 1:53 PM EDT us Eric Holly DO POINT OF CARE TEST ENTER/EDIT OR DERABLES Final Result documented in this encounter Visit Diagnoses Diagnosis Third trimester ([facility]) state, incidental 34 weeks gestation of ([facility]) H/O pre-eclampsia in prior , currently ([facility]) Diet controlled gestational diabetes mellitus (GDM), antepartum ([facility]) documented in this encounter Care Teams Dehydrogenation Supervisor Relationship Specialty Start Date End Date Cuco Munoz MD [address] [place] [address] PCP - General Family Medicine 06/24/23 documented as of this encounter
--- OUTSIDE RECORDS SUMMARY | 2025-01-22 13:30 | XMS_ITS | Encounter Summary ---
Author Organization [facility] Address [address] [place] [address] Care Team Providers Care Look Out Tower Fire Watcher Name Role Phone Cuco Munoz MD Primary Care Provider [phone] Reason for Visit * Reason Comments Routine Visit Encounter Details Date Type Department Care Team (Late st Contact Info) Description 01/22/2025 1:30 PM EDT Routine [facility] [address] [place] [id number] Eric Holly, DO [address] [facility] [address] [place], [id number] Third trimester ([facility]); 36 weeks gestation of ([facility]) Social History Tobacco Use Types Packs/Day [...] documented in this encounter Progress Notes * Taal Huizar NP - 01/22/2025 1:30 PM EDT [...] Multiple Vitamins-Minerals (MULTIVITAMIN ADULT, MINERALS, PO) Multivitamin [id number]-[id number] ( 1 + IRON PO) ALLERGIES Allergies [...] 08/21/2024 History of pre-eclampsia 08/21/2024 Second trimester ([facility]) 08/21/2024 Resolved Ambulatory Problems Diagnosis [...] nursing note reviewed. Exam conducted with a restorative aide present. Vitals: Estimated body mass index is 34.58 kg/m?? as calculated from the following: Height as of 06/24/23: 5' 5 . Weight as of this encounter: 207 lb 12.8 oz. BP: 116/70 Patient's last menstrual period was 05/14/2024. ASSESSMENT & PLAN ICD-10-CM 1. Third trimester ([facility]) Z34.93 POCT urinalysis dipstick manually resulted CULTURE, GROUP B STREP WITH SUSCEPTIBLITY CULTURE, GROUP B STREP WITH SUSCEPTIBLITY 2. 36 weeks gestation of ([facility]) Z3A.36 POCT urinalysis dipstick manually resulted Return [...] AM EDT Routine [facility] [address] [place] [phone] Eric Holly DO [address] [facility] [address] [place] [address] Scheduled Orders Name Type Priority Associated Diagnoses Orde r Schedule CULTURE, GROUP B STREP WITH SUSCEPTIBLITY Lab Routine Third trimester ([facility]) Expected: 01/22/2025, Expires: 01/22/2026 documented as of this encounter Procedures Procedure Name Priority Date/Time Associated Diagnosis Comments POCT URINALYSIS DIPSTICK Routine 01/22/2025 2:07 PM EDT Third trimester ([facility]) 36 weeks gestation of ([facility]) documented in this encounter Results * (ABNORMAL) [...] this encounter Visit Diagnoses Diagnosis Third trimester ([facility]) state, incidental 36 weeks gestation of ([facility]) documented in this encounter Care Teams Look Out Tower Fire Watcher Relationship Specialty Start Date End Date Cuco Munoz MD [address] [place] [address] PCP - General Family Medicine 06/24/23 documented as of this encounter
--- NOTE | 2025-01-23 | US_ITS ---
The [address] [address] Patient Name: ABRAM NELSON MRN: [id number] date: 1990 Sex: F Assigned Patient Location: US Current Patient Location: Accession/Order Number: [id number] Exam Date: 01/23/2025 15:49 Report Date: 01/23/2025 22:58 At the request of: KERMIT MG DO Procedure: US OB BPP w non-stress Ultrasound biophysical profile HISTORY: Adequate breathing movement, gross body movement, tone and amniotic fluid volume for total score of 8 out of 8. The amniotic fluid index is 19.1cm within normal limits. The heart rate 140 bpm. US/US OB BPP w non-stress IMPRESSION: Adequate ultrasound biophysical profile Impression dictated by: David Chaudhari M.D. 01/23/2025 10:58 PM Dictation Location: [place] [address] Electronically authenticated by: [id number] Y Date: 01/23/2025 22:58
--- OUTSIDE RECORDS SUMMARY | 2025-01-23 15:02 | XMS_ITS | Clinical Summary ---
Author Organization [facility] Address [address] [place] [address] Care Team Providers Care Five Piece Expansion Maker Hand Name Role Phone Viry Cortez MD Primary [...] 3:00 AM 02/07/2017 8:37 PM Care Teams Five Piece Expansion Maker Hand Relationship Specialty Start Date End Date Viry Cortez MD [address] [facility] [place] [address] PCP - General 02/07/17
--- OUTSIDE RECORDS SUMMARY | 2025-01-23 15:02 | XMS_ITS | Patient Health Record ---
Author Organization [facility] Address [address] [place] [address] Care Team Providers Care K 9 Handler/ Deputy Name Role Phone Suki Mayer Primary Care Provider [phone] Halley Nugent Unavailable [phone] Clare Talley Unavailable [phone] Karin Knowles Unavailable [phone] Pema Law Unavailable [phone] Allergies Allergen (clinical drug ingredient) Drug/Non Drug [...] 1 puff as needed Inhalation every 4 hrs; Duration: 30 days Active Active Social History Tobacco Use: Social History Observation Description Date Details (start date - stop date) Never Smoker NA - NA Tobacco Control (Standard) Question Answer Notes Tobacco use: Nonsmoker Problems Problem Type SNOMED Code ICD Code Onset Dates Problem Status W/U Status Risk Notes Problem Uncomplicated mild persistent asthma (574153350) Mild persistent asthma without complication (J45.30) Active [...] 09/12/2024 Encounters Encounter Location Date Provider Diagnosis [facility] [address] [place] [address] 03/29/2024 [place] [address] [address] [place] [place] [address] 06/08/2024 [place] [address] [address] [place] [address] 06/26/2024 [place] [address] [address] [place] [address] 09/12/2024 Suki Mayer Mild persistent asth ma without complication J45.30 and Influenza A J10.1 [facility] [address] [place] [address] 04/13/2024 Clare Jacobsron Depression, major, recurrent, mild F33.0 [facility] [address] [place] [address] 04/25/2024 Clare Shedron Depression, major, recurrent, mild F33.0 [facility] [address] [place] [address] 05/09/2024 Clare Shedron Depression, major, recurrent, mild F33.0 [facility] [address] [place] [address] 06/26/2024 Clare Shedron Depression, major, recurrent, mild F33.0 [facility] [address] [facility] [address] 07/13/2024 Clare Shedron Depression, major, recurrent, mild F33.0 [facility] [address] [place] [address] 08/11/2024 Clare Shedron Depression, major, recurrent, mild F33.0 [facility] [address] [place] [address] 08/25/2024 Clare Shedron Depression, major, recurrent, mild F33.0 [facility] [address] [place] [address] 09/29/2024 Clare Shedron Depression, major, recurrent, mild F33.0 [facility] [address] [place] [address] 05/24/2024 Clare Shedron Depression, major, recurrent, mild F33.0 [facility] [address] [place] [address] 10/05/2024 Karin Knowles Encounter for dental examination [...] Provider Name:Karin Knowles, 04/25/2025 03:00:00 PM, [address] [place], [address], Insurance Providers Payer Name Payer Address Payer Phone Subscriber Number Group Number Insured Name Patient Relationship to Insured Coverage Start Date Coverage End Date [employer] [place] Medicaid [address] [place] [address] [id number] ABRAM NELSON Self - patient is the insured 3 Wrap C[employer] [facility] [address] [place] [address] [id number] ABRAM NELSON Self - patient is the insured 3 [facility] Medicaid- termed 22 [address] [place] [address] [id number] ABRAM NELSON Self - patient is the insured 2 3 zMedicaid CFC [facility] [address] [place] [address] [id number] ABRAM NELSON Self - patient is the insured 2 3 zDENTAL [employer] -termed 22 [address] [place] [address] [id number] ABRAM NELSON Self - patient is the insured 2 3 zDental MEDICAID CFC after [employer] -termed 22 [address] [place] [address] [id number] ABRAM NELSON Self - patient is the insured 2 3 [facility] [place] [address] RAMAN FROST [address] [id number] ABRAM NELSON Self - patient is the insured 3 Dental Wrap [facility] [address] [place] [address] [id number] ABRAM NELSON Self - patient is the insured 3 [facility] [address] [place] [address] [id number] ABRAM NELSON Self - patient is the insured 4 [employer]rap [facility] [address] [place] [address] [id number] ABRAM NELSON Self - patient is the insured 4 D[employer]AL [employer] [address] [address] [place] [phone] [id number] ABRAM NELSON Self - patient is the insured 5 Medical (General) History Medical History History ICD Code Asthma
--- OUTSIDE RECORDS SUMMARY | 2025-01-23 15:02 | XMS_ITS | Clinical Summary ---
Author Organization [facility] Address [address] [place] [address] Care Team Providers Care Electrician Technician Name Role Phone Cuco Munoz MD Primary Care Provider [phone] Allergies Active Allergy Reactions Criticality Noted Date Comments Amoxicillin Hives,Rash Low 02/07/2017 Other Reaction(s): hives, Unknown Azithromycin Hives,Rash Low 02/07/2017 Cefaclor Hives,Rash Low 02/07/2017 Clarithromycin Hives,Rash,Unknown Low 02/07/2017 Other Reaction(s): hives Doxycycline Hives,Rash Low 06/24/2023 Sulfa Antibiotics Hives,Rash Low 02/06/2017 Other Reaction(s): hives, Unknown Sulfamethoxazole-Trimetho prim Hives,Rash Low 02/07/2017 Other Reaction(s): hives, Unknown Medications Vauxxcqn-Tij-G e-FA ( 1 + IRON PO) Active albuterol HFA 90 mcg/act inhaler every 4 (four) hours 09/12/19 25 Active Multiple Vitamins-[place] als (MULTIVITAMIN ADULT, MINERALS, PO) Multivitamin Act violeta Alcohol Swabs (Alcohol Prep Pad) 70 % padsIndication s:Gestational diabetes mellitus (GDM), antepartum, gestational diabetes method of control unspecified (HHS-HCC),Elev ated glucose tolerance test Apply 1 Pad topically Daily Use four times daily to check FSBS. 150 each 3 11/24/19 25 Active Blood Glucose Monitoring Suppl (ONE TOUCH ULTRA 2) w/Device kitIndications :Gestational diabetes mellitus (GDM), antepartum, gestational diabetes method of control unspecified (HHS-HCC),Elev ated glucose tolerance test USE FOUR TIMES DAILY TO CHECK FASTING BLOOD SUGAR. IN THE MORNING PRIOR TO BREAKFAST & 1 HOUR AFTER EACH MEAL FOR A TOTAL OF 4TIMES DAILY. 1 kit 12/28/19 Active Glucose Blood (Blood Glucose Test) stripIndicatio ns:Gestational diabetes mellitus (GDM), antepartum, gestational diabetes method of control unspecified (HHS-HCC),Elev ated glucose tolerance test 1 strip by In Vitro route Daily Use in the morning prior to breakfast, 1 hour after each meal for a total of 4times daily. 150 strip 3 12/26/19 25 2024 Active Lancets Ultra Thin miscIndication s:Gestational diabetes mellitus (GDM), antepartum, gestational diabetes method of control unspecified (HHS-HCC),Elev ated glucose tolerance test 1 each by In Vitro route Daily Use to check FSBS four times daily 150 each 3 01/02/20 25 2024 Active Glucose Blood (Blood Glucose Test) stripIndicatio ns:Gestational diabetes mellitus (GDM), antepartum, gestational diabetes method of control unspecified (HHS-HCC),Elev ated glucose tolerance test 1 strip by In Vitro route Daily Use in the morning prior to breakfast, 1 hour after each meal for a total of 4times daily. 150 strip 3 11/24/19 25 2024 Discontinued(R michelle) Blood Glucose Monitoring Suppl (D-Care Glucometer) w/Device kitIndications :Gestational diabetes mellitus (GDM), antepartum, gestational diabetes method of control unspecified (HHS-HCC),Elev ated glucose tolerance test 1 kit Daily Use four times daily to check FSBS. In the morning prior to breakfast & 1 hour after each meal for a total of 4times daily. 1 kit 11/24/19 25 2024 Discontinued Active Problems Problem Noted Date Diagnosed Date History of anemia 08/21/2024 Tinea pedis 08/21/2024 History of pre-eclampsia 08/21/2024 Second trimester ([facility]) 08/21/2024 Estimated Date of Delivery Comme nts Yes 02/16/2025 Based on Ultraso und Encounters Date Type Department Care Team Description 01/22/2025 1:30 PM EDT Routine [facility] [address] [place] [address] Kermit Holly, DO Third trimester ([facility]); 36 weeks gestation of ([facility]) 01/22/2025 Bamboo flowsheet [facility] OB [address] [place] [address] [place] [address] Kermit Holly, DO 01/19/2025 Travel 01/18/2025 Clinisync Result Encounter NOMS External Department Unsolicited Kermit Holly, DO 01/10/2025 Clinisync Result Encounter NOMS External Department Unsolicited Kermit Holly, DO 01/09/2025 1:40 PM EDT Routine [facility] [place] [address] [place] [address] Kermit Holly, DO Third trimester ([facility]); 34 weeks gestation of ([facility]); H/O pre-eclampsia in prior , currently ([facility]); Diet controlled gestational diabetes mellitus (GDM), antepartum ([facility]) 01/09/2025 Bamboo flowsheet [facility] OB [address] [place] [address] [place] [address] Kermit Holly, DO 01/06/2025 Travel 01/04/2025 Telephone [facility] OB [address] [place] [address] [place] [address] Priscila Landry MA 01/03/2025 Clinisync Result Encounter NOMS External Department Unsolicited Kermit Holly, DO 01/01/2025 Telephone [facility] OB [address] [place] [address] Priscila Landry MA 12/27/2024 Clinisync Result Encounter [facility]OMS External Department Unsolicited Kermit Holly, DO 12/27/2024 Clinisync Result Encounter NOMS External Department Unsolicited Kermit Holly, DO 12/25/2024 2:00 PM EDT Routine [facility] OB [facility] [place] [address] Kermit Holly, 32 weeks gestation of ([facility]); Third trimester ([facility]); Gestational diabetes mellitus (GDM), antepartum, gestational diabetes method of control unspecified ([facility]); Elevated glucose tolerance test 12/25/[address] [address] [place] [address] Kermit Holly, Gestational diabetes mellitus (GDM), antepartum, gestational diabetes method of control unspecified ([facility]); Elevated glucose tolerance test 12/22/2024 Travel 12/13/2024 2:30 PM EDT Routine NOM[facility] [address] [place] [address] Kermit Holly, 30 weeks gestation of ([facility]); Third trimester ([facility]); Gestational diabetes mellitus (GDM), antepartum, gestational diabetes method of control unspecified ([facility]) 12/13/2024 Bamboo flowsheet NOM[facility] [address] [place] [address] Kermit Holly, 12/10/2024 Travel 11/28/2024 1:50 PM EDT Routine NOM[facility] [address] [place] [address] Kermit Holly, Third trimester ([facility]); 28 weeks gestation of ([facility]) 11/28/2024 Bamboo flowsheet NOM[facility] [address] [place] [address] Kermit Holly, 11/25/2024 Travel 11/23/[address] [address] [place] [address] Keiko Bruce MA 11/23/2024 Clinisync Result Encounter NOMS External Department Unsolicited Kermit Holly, 11/16/2024 Clinisync Result Encounter NOMS External Department Unsolicited Kermit Holly, DO 11/07/2024 1:20 PM EDT Routine [facility] OB [address] [place] [address] [place] [address] Kermit Holly DO Second trimester ([facility]); 25 weeks gestation of ([facility]); Diabetes mellitus screening 11/07/2024 Bamboo flowsheet [facility]OM[facility] [address] [place] [address] Kermit Holly DO 11/05/2024 Travel 10/27/2024 [...] 12.8 oz) 01/22/2025 2:02 PM EDT Height 165.1 cm (5' 5 ) 06/24/2023 10:0 9 AM EST Body Mass Index 34.58 06/24/2023 10:09 AM EST Plan of Treatment Upcoming Encounters Date Type Department Care Team (Late st Contact Info) Description 01/29/2025 10:00 AM EDT Routine [facility] OB [address] [place] [address] [place] [address] Kermit Holly DO [address] [place] [address] [address] [place], [place] [phone] Health Maintenance Due Date Last Done Comments Influenza Vaccine (Season Ended) 2025 Cervical Cancer Screening 09/18/2025 HPV/Cotest 09/18/2025 Pap Smear 09/18/2025 09/18/2024 Procedures Procedure Name Priority Date/Time Associated Diagnosis Comments POCT URINALYSIS DIPSTICK Routine 01/22/2025 2:07 PM EDT Third trimester ([facility]) 36 weeks gestation of ([facility]) US OB BPP W NON-STRESS 01/18/2025 8:14 AM EDT US OB BPP W NON-STRESS 01/10/2025 7:01 PM EDT POCT URINALYSIS DIPSTICK Routine 01/09/2025 1:53 PM EDT Third trimester ([facility]) US OB BPP W NON-STRESS 01/03/2025 8:19 PM EDT US OB GROWTH 12/27/2024 7:37 PM EDT US OB BPP W NON-STRESS 12/27/2024 7:37 PM EDT POCT URINALYSIS DIPSTICK Routine 12/25/2024 2:32 PM EDT 32 weeks gestation of ([facility]) POCT URINALYSIS DIPSTICK Routine 12/13/2024 3:07 PM EDT 30 weeks gestation of ([facility]) Third trimester ([facility]) GLUCOSE 1 HOUR Routine 11/23/2024 10:40 AM EDT ALL CBC WITH AUTO DIFF Routine 11/23/2024 10:40 AM EDT [facility] UA (CLEAN/CATCH) CERAMICS TEST ENGINEER/MICRO IF IND. Routine 11/16/2024 7:27 PM EDT POCT URINALYSIS DIPSTICK Routine 11/07/2024 1:47 PM EDT Second trimester ([facility]) US OB INCOMPLETE ANATOMY 10/27/2024 7:11 PM EDT PAP SMEAR Routine 09/18/2024 12:00 AM EST from Last 3 Months or Most Recently Relevant to Health Maintenance Results * (ABNORMAL) POCT urinalysis dipstick manually resulted (01/22/2025 2:07 PM EDT) Only the most recent of5 resultswithin the time period is included. Color, [...] - Positive Urine 01/22/2025 2:07 PM EDT us Kermit Elayne DO POINT OF CARE TEST ENTER/EDIT OR DERABLES Final Result * US OB BPP W NON-STRESS (01/18/2025 8:14 AM EDT) Only the most recent of4 resultswithin the time period is included. Anatomical Region Laterality Modality Other 01/18/2025 8:14 AM EDT Narrative 01/18/2025 8:16 AM EDT [address] [address] Ultrasound Report Signed Patient: LYNNETTE NELSON MR#: [id number] : 1990 Acct:[id number] Age/Sex: 34 / F ADM Date: 01/17/25 Loc: US Attending Dr: Kermit Holly D.O. Ordering Physician: Kermit Holly D.O. Date of Service: 01/17/25 Procedure(s): US OB BPP w non-stress Accession Number(s): [id number] cc: Kermit Holly D.O.; Physician,Non-Staff [place] [id number] Patient Name: LYNNETTE NELSON MRN: [facility]:[id number] date: 1990 Sex: F Assigned Patient Location: US Current Patient Location: Accession/Order Number: [id number] Exam Date: 01/18/2025 08:13 Report Date: 01/18/2025 [...] Shrestha M.D. 01/18/2025 8:14 AM Dictation Location: [place] [address] Electronically authenticated by: [id number] Y Date: 01/18/2025 08:14 Dictated By: Libia Shrestha M.D. Signed By: 01/18/2516 DD/ 3 TD/TT: Digital Controls Technical Officer: Procedure Note Radiology, Radiologist, - 01/18/2025 [place] [address] Ultrasound Report Signed Patient: LYNNETTE NELSON RMR#: [id number] : 1990Acct:[id number] Age/Sex: 34 / FADM Date: 01/17/25 Loc: US Attending Dr: Kermit Holly D.O. Ordering Physician: Kermit Holly D.O. Date of Service: 01/17/25 Procedure(s): US OB BPP w non-stress Accession Number(s): [id number] cc: Kermit Holly D.O.; Physician,Non-Staff [place] [id number] Patient Name: LYNNETTE NELSON MRN: [id number] date: 1990 Sex: F Assigned Patient Location: Current Patient Location: Accession/Order Number: [id number] Exam Date: 01/18/2025 08:13 Report Date: 01/18/2025 [...] Shrestha M.D. 01/18/2025 8:14 AM Dictation Location: [place] [address] Electronically authenticated by: [id number] Y Date: 508:14 Dictated By: Libia Shrestha M.D. Signed By:01/18/2516 DD/ 3 TD/TT: Digital Controls Technical Officer: us Kermit Holly DO [facility] Final Result * US OB GROWTH (12/27/2024 7:37 PM EDT) Anatomical Region Laterality Modality Other 12/27/2024 7:37 PM EDT Narrative 12/27/2024 7:40 [place] [address] Ultrasound Report Signed Patient: LYNNETTE NELSON MR#: [id number] : 1990 Acct:[id number] Age/Sex: 34 / F ADM Date: 12/27/24 Loc: US Attending Dr: Kermit Holly D.O. Ordering Physician: Kermit Holly D.O. Date of Service: 12/27/24 Procedure(s): US OB growth Accession Number(s): [id number] cc: Kermit Holly D.O.; Physician,Non-Staff [place] [id number] Patient Name: LYNNETTE NELSON MRN: [facility]:[id number] date: 1990 Sex: F Assigned Patient Location: US Current Patient Location: Accession/Order Number: [id number] Exam Date: 12/27/2024 19:33 Report Date: 12/27/2024 [...] Chaudhari M.D. 12/27/2024 7:37 PM Dictation Location: [place] Electronically authenticated by: [id number] Y Date: 12/27/2024 19:37 Dictated By: David Chaudhari D.O. Signed By: 12/27/241939 DD/ 36 TD/TT: Digital Controls Technical Officer: Procedure Note Radiology, Radiologist, MD - 12/28/2024 [place] [address] Ultrasound Report Signed Patient: LYNNETTE NELSON RMR#: [id number] : 1990Acct:[id number] Age/Sex: 34 / FADM Date: 12/27/24 Loc: US Attending Dr: Kermit Holly D.O. Ordering Physician: Kermit Holly D.O. Date of Service: 12/27/24 Procedure(s): US OB growth Accession Number(s): [id number] cc: Kermit Holly D.O.; Physician,Non-Staff [place] [facility] [place] [id number] Patient Name: LYNNETTE NELSON MRN: [id number] date: 1990 Sex: F Assigned Patient Location: US Current Patient Location: Accession/Order Number: [id number] Exam Date: 12/27/2024 19:33 Report Date: 12/27/2024 [...] Chaudhari M.D. 12/27/2024 7:37 PM Dictation Location: [place] Electronically authenticated by: [id number] Y Date: 9:37 Dictated By: David Chaudhari D.O. Signed By:12/27/241939 DD/ 36 TD/TT: Digital Controls Technical Officer: us Kermit Elayne DO [facility] Final Result * (ABNORMAL) GLUCOSE 1 HOUR (11/23/2024 10:40 AM EDT) GLUCOSE 1 HOUR 191(H) <130 mg/dL [facility] 11/23/2024 10:4 0 AM EDT 11/23/2024 10:42 AM EDT Narrative [facility] - 11/23/2024 11:31 AM EDT Kermit Elayne DO LAB BLOOD ORDERABLES Final Resul t [facility] * (ABNORMAL) ALL CBC WITH AUTO DIFF (11/23/2024 10:40 AM EDT) Pathologist [facility] TB WBC 9.0 4.0 - 11.0 10 3/uL [facility] TB RBC 3.58(L) 4.20 - 5.40 10 6/uL [facility] TB HGB 10.0(L) 12.0 - 16.0 g/dL TB TB HCT 30.0(L) 36.0 - 48.0 % TB TB MCV 83.8 81.0 - 99.0 fL TB TB MCH 27.9 26.7 - 34.0 pg [facility] TB MCHC 33.3 29.9 - 35.2 g/dL TB TB RDW 13.4 11.0 - 15.0 % [facility] TBH PLT 417 150 - 450 10 3/uL TB TB MPV 10.0 9.5 - 13.5 fL TBH [...] DO [facility] Final Result Performing Organization Address City/State/[facility] Co de Phone Number [facility] * [facility] UA (CLEAN/CATCH) CERAMICS TEST ENGINEER/MICRO IF IND. (11/16/2024 7:27 PM EDT) COLOR [...] Narrative [facility] - 11/16/2024 8:12 PM EDT us Kermit Elayne DO [facility] Final Result Performing Organization Address City/State/[facility] Co de Phone Number [facility] * US OB INCOMPLETE ANATOMY (10/27/2024 7:11 PM EDT) Anatomical Region Laterality Modality Other 10/27/2024 7:11 PM EDT Narrative 10/27/2024 7:14 [place] [address] Ultrasound Report Signed Patient: LYNNETTE NELSON MR#: [id number] : 1990 Acct:[id number] Age/Sex: 33 / F ADM Date: 10/27/24 Loc: US Attending Dr: Kermit Holly D.O. Ordering Physician: Kermit Holly D.O. Date of Service: 10/27/24 Procedure(s): US OB incomplete anatomy Accession Number(s): [id number] cc: Kermit Holly D.O.; Physician,Non-Staff [place] [address] Patient Name: LYNNETTE NELSON MRN: [id number] date: 1990 Sex: F Assigned Patient Location: US Current Patient Location: Accession/Order Number: [id number] Exam Date: 10/27/2024 19:10 Report Date: 10/27/2024 [...] David Chaudhari M.D.10/27/2024 7:11 PM Dictation Location: [place] [address] Electronically authenticated by: [id number] Y Date: 10/27/2024 19:11 Dictated By: David Chaudhari D.O. Signed By: 10/27/241913 DD/ 10 TD/TT: Digital Controls Technical Officer: Procedure Note Radiology, Radiologist, - 10/27/2024 [place] [address] Ultrasound Report Signed Patient: LYNNETTE NELSON RMR#: [id number] : 1990Acct:[id number] Age/Sex: 33 / FADM Date: 10/27/24 Loc: US Attending Dr: Kermit Holly D.O. Ordering Physician: Kermit Holly D.O. Date of Service: 10/27/24 Procedure(s): US OB incomplete anatomy Accession Number(s): [id number] cc: Kermit Holly D.O.; Physician,Non-Staff [place] [address] Patient Name: LYNNETTE NELSON MRN: [id number] date: 1990 Sex: F Assigned Patient Location: US Current Patient Location: US Accession/Order Number: [id number] Exam Date: 10/27/2024 19:10 Report Date: 10/27/2024 [...] David Chaudhari M.D.10/27/2024 7:11 PM Dictation Location[email or web address] Electron[facility] authenticated by: [id number] Y Date: 9:11 Dictated By: David Chaudhari D.O. Signed By:10/27/241913 DD/ 10 TD/TT: Digital Controls Technical Officer: Kermit Holly DO [facility] Final Result * Pap Smear (09/18/2024 12:00 AM EST) Swab Cervical swab / Unknown Loraine OLIVO LAB CYTOLOGY ORDERABLES Final Re sult EXTERNAL LAB from Last 3 Months or Most Recently Relevant to Health Maintenance Insurance [employer] MEDICA[place] Care Teams Electrician Technician Relationship Specialty Start Date End Date Cuco Munoz MD [address] [place] [address] PCP - General Family Medicine 06/24/23
--- OUTSIDE RECORDS SUMMARY | 2025-01-23 15:03 | XMS_ITS | Encounter Summary ---
Author Organization [facility] Address [address] [place] [address] Care Team Providers Care Digital Composer Name Role Phone Cuco Munoz MD Primary [...] AM EDT Routine [facility] OB [address] [place] [address] Eric Holly, DO [address] [place] [address] [place] [id number] documented as of this encounter Visit Diagnoses Not on filedocumented in this encounter Care Teams Digital Composer Relationship Specialty Start Date End Date Cuco Munoz MD [address] [place] [address] PCP - General Family Medicine 06/24/23 documented as of this encounter
--- OUTSIDE RECORDS SUMMARY | 2025-01-23 15:03 | XMS_ITS | Encounter Summary ---
Author Organization [facility] Address [address] [place] [address] Care Team Providers Care Warp Dyeing Tender Name Role Phone Cuco Munoz MD Primary Care Provider [phone] Encounter Details Date Type Department Care Team (Late st Contact Info) Description 01/18/2025 Clinisync Result Encounter [facility] External Department Unsolicited Kermit Holly, DO [address] [place], [place] [address] Social History Tobacco Use Types Packs/Day Years [...] Description 01/29/2025 10:00 AM EDT Routine [facility] OB [address] [place] [address] Kermit Holly DO [address] [place] [address] [place] [address] documented as of this encounter Procedures Procedure Name Priority Date/Time Associated Diagnosis Comments US OB BPP W NON-STRESS 01/18/2025 8:14 AM EDT documented in this encounter Results * US OB BPP W NON-STRESS (01/18/2025 8:14 AM EDT) Anatomical Region Laterality Modality Other 01/18/2025 8:14 AM EDT Narrative 01/18/2025 8:16 [place] [address] Ultrasound Report Signed Patient: LYNNETTE NELSON MR#: [id number] : 1990 Acct:[id number] Age/Sex: 34 / F ADM Date: 01/17/25 Loc: US Attending Dr: Kermit Holly D.O. Ordering Physician: Kermit Holly D.O. Date of Service: 01/17/25 Procedure(s): US OB BPP w non-stress Accession Number(s): [id number] cc: Kermit Holly D.O.; Physician,Non-Staff M.[place]icah The [place] [address] Patient Name: LYNNETTE NELSON MRN: [id number] date: 1990 Sex: F Assigned Patient Location: Current Patient Location: Accession/Order Number: [id number] Exam Date: 01/18/2025 08:13 Report Date: 01/18/2025 [...] Shrestha M.D. 01/18/2025 8:14 AM Dictation Location: [place] [address] Electronically authenticated by: [id number] Y Date: 01/18/2025 08:14 Dictated By: Libia Shrestha M.D. Signed By: 01/18/25815 DD/ 3 TD/TT: Railroad Brakeman: Procedure Note Radiology, Radiologist, MD - 01/18/2025 [place] [address] Ultrasound Report Signed Patient: LYNNETTE NELSON RMR#: [id number] : 1990Acct:[id number] Age/Sex: 34 / FADM Date: 01/17/25 Loc: US Attending Dr: Kermit Holly D.O. Ordering Physician: Kermit Holly D.O. Date of Service: 01/17/25 Procedure(s): US OB BPP w non-stress Accession Number(s): [id number] cc: Kermit Holly D.O.; Physician,Non-Staff [place] The [address] [id number] Patient Name: LYNNETTE NELSON MRN: [id number] date: 1990 Sex: F Assigned Patient Location: US Current Patient Location: Accession/Order Number: [id number] Exam Date: 01/18/2025 08:13 Report Date: 01/18/2025 [...] Shrestha M.D. 01/18/2025 8:14 AM Dictation Location: [place] [address] Electronically authenticated by: [id number] Y Date: 508:14 Dictated By: Libia Shrestha M.D. Signed By:01/18/2516 DD/ TD/TT: Railroad Brakeman: us Kermit Elayne DO [facility] Final Result documented in this encounter Visit Diagnoses Not on filedocumented in this encounter Care Teams Warp Dyeing Tender Relationship Specialty Start Date End Date Cuco Munoz MD [address] [place] [address] PCP - General Family Medicine 06/24/23 documented as of this encounter
--- OUTSIDE RECORDS SUMMARY | 2025-01-23 15:03 | XMS_ITS | Encounter Summary ---
Author Organization [facility] Address [address] [place] [address] Care Team Providers Care Analytical Research Program Manager Name Role Phone Cuco Munoz MD Primary Care Provider [phone] Encounter Details Date Type Department Care Team (Late st Contact Info) Description 01/10/2025 Clinisync Result Encounter [facility]OMS External Department Unsolicited Kermit Holly, DO [address] [place], [place] [phone] Social History Tobacco Use Types Packs/Day Years [...] Description 01/29/2025 10:00 AM EDT Routine [facility] OB [address] [place] [phone] Kermit Holly DO [address] [place] [address] [place] [address] documented as of this encounter Procedures Procedure Name Priority Date/Time Associated Diagnosis Comments US OB BPP W NON-STRESS 01/10/2025 7:01 PM EDT documented in this encounter Results * US OB BPP W NON-STRESS (01/10/2025 7:01 PM EDT) Anatomical Region Laterality Modality Other 01/10/2025 7:01 PM EDT Narrative 01/10/2025 7:03 [place] [address] Ultrasound Report Signed Patient: LYNNETTE NELSON MR#: [id number] : 1990 Acct:[id number] Age/Sex: 34 / F ADM Date: 01/10/25 Loc: US Attending Dr: Kermit Holly D.O. Ordering Physician: Kermit Holly D.O. Date of Service: 01/10/25 Procedure(s): US OB BPP w non-stress Accession Number(s): [id number] cc: Kermit Holly D.O.; Physician,Non-Staff M.DMicah The [place] [id number] Patient Name: LYNNETTE NELSON MRN: [id number] date: 1990 Sex: F Assigned Patient Location: [facility] Current Patient Location: Accession/Order Number: [id number] Exam Date: 01/10/2025 18:57 Report Date: 01/10/2025 [...] Jordan M.D. 01/10/2025 7:01 PM Dictation Location: [place] [address] Electronically authenticated by: [id number] Y Date: 01/10/2025 19:01 Dictated By: Lavelle Jordan M.D. Signed By: 01/10/251902 DD/ 00 TD/TT: Electrical Automation Engineer: Procedure Note Radiology, Radiologist, MD - 01/10/2025 [place] [address] Ultrasound Report Signed Patient: LYNNETTE NELSON RMR#: [id number] : 1990Acct:[id number] Age/Sex: 34 / FADM Date: 01/10/25 Loc: US Attending Dr: Kermit Holly D.O. Ordering Physician: Kermit Holly D.O. Date of Service: 01/10/25 Procedure(s): US OB BPP w non-stress Accession Number(s): [id number] cc: Kermit Holly D.O.; Physician,Non-Staff [place] The [address] [id number] Patient Name: LYNNETTE NELSON MRN: [id number] date: 1990 Sex: F Assigned Patient Location: [facility] Current Patient Location: Accession/Order Number: [id number] Exam Date: 01/10/2025 18:57 Report Date: 01/10/2025 [...] Jordan M.D. 01/10/2025 7:01 PM Dictation Location: [place] [address] Electronically authenticated by: [id number] Y Date: 9:01 Dictated By: Lavelle Jordan M.D. Signed By:01/10/251902 DD/ 00 TD/TT: Electrical Automation Engineer: us Kermit Elayne DO [facility] Final Result documented in this encounter Visit Diagnoses Not on filedocumented in this encounter Care Teams Analytical Research Program Manager Relationship Specialty Start Date End Date Cuco Munoz MD [address] [place] [address] PCP - General Family Medicine 06/24/23 documented as of this encounter
--- OUTSIDE RECORDS SUMMARY | 2025-01-23 15:03 | XMS_ITS | Encounter Summary ---
Author Organization [facility] Address [address] [place] [address] Care Team Providers Care Lumber Handler Name Role Phone Cuco Munoz MD Primary Care Provider [phone] Encounter Details Date Type Department Care Team (Late st Contact Info) Description 07/21/2024 Clinisync Result Encounter [facility] External Department Unsolicited Kermit Holly, DO [address] [place], [place] [id number] Social History Tobacco Use Types Packs/Day Years [...] Description 01/29/2025 10:00 AM EDT Routine [facility] OB [address] [place] [id number] Kermit Holly DO [address] [place] [address] [place] [address] documented as of this encounter Procedures Procedure Name Priority Date/Time Associated Diagnosis Comments US OB TRANSVAGINAL 07/21/2024 4: 17 PM EST documented in this encounter Results * US OB TRANSVAGINAL (07/21/2024 4:17 PM EST) Anatomical Region Laterality Modality Other 07/21/2024 4:17 PM EST Narrative 07/21/2024 4:20 [place] [address] Ultrasound Report Signed Patient: LYNNETTE NELSON MR#: [id number] : 1990 Acct:[id number] Age/Sex: 33 / F ADM Date: 07/21/24 Loc: [facility] Attending Dr: Kermit Holly D.O. Ordering Physician: Kermit Holly D.O. Date of Service: 07/21/24 Procedure(s): US OB transvaginal Accession Number(s): [id number] cc: Kermit Holly D.O.; Physician,Non-Staff M.DMicah The [address] [address] Patient Name: LYNNETTE NELSON MRN: [id number] date: 1990 Sex: F Assigned Patient Location: [facility] Current Patient Location: [facility] Accession/Order Number: [id number] Exam Date: 07/21/2024 10:15 Report Date: 07/21/2024 [...] Signed By: 07/21/24 1620 DD/ 1617 TD/TT: Hand Cloth Folder: Procedure Note Radiology, Radiologist, MD - 07/21/2024 [place] [address] Ultrasound Report Signed Patient: LYNNETTE NELSON RMR#: [id number] : 1990Acct:[id number] Age/Sex: 33 / FADM Date: 07/21/24 Loc: [facility] Attending Dr: Kermit Holly D.O. Ordering Physician: Kermit Holly D.O. Date of Service: 07/21/24 Procedure(s): US OB transvaginal Accession Number(s): [id number] cc: Kermit Holly D.O.; Physician,Non-Staff [place] The [place] [id number] Patient Name: LYNNETTE NELSON MRN: [id number] date: 1990 Sex: F Assigned Patient Location: [facility] Current Patient Location: [facility] Accession/Order Number: [id number] Exam Date: 07/21/2024 10:15 Report Date: 07/21/2024 [...] M.D. Signed By:07/21/24 162 DD/ 16 TD/TT: Hand Cloth Folder: us Kermit Elayne DO [facility] Final Result documented in this encounter Visit Diagnoses Not on filedocumented in this encounter Care Teams Lumber Handler Relationship Specialty Start Date End Date Cuco Munoz MD [address] [place] [address] PCP - General Family Medicine 06/24/23 documented as of this encounter
--- OUTSIDE RECORDS SUMMARY | 2025-01-23 15:03 | XMS_ITS | Encounter Summary ---
Author Organization [facility] Address [address] [place] [address] Care Team Providers Care Civil Technician Name Role Phone Cuco Munoz MD Primary Care Provider [phone] Encounter Details Date Type Department Care Team (Late Contact Info) Description 01/22/2025 Bamboo flowsheet [facility] OB [address] [place] [address] Eric Holly [address] [place], [facility]11 [...] Department Care Team (Late Contact Info) Description 01/29/2025 10:00 AM EDT Routine [facility] OB [address] [place] [address] Eric Holly [facility] [address] [place], [facility] documented as of this encounter Visit Diagnoses Not on filedocumented in this encounter Care Teams Civil Technician Relationship Specialty Start Date End Date Cuco Munoz MD [address] [place] [address] PCP - General Family Medicine 06/24/23 documented as of this encounter
--- OUTSIDE RECORDS SUMMARY | 2025-01-23 15:03 | XMS_ITS | Encounter Summary ---
Author Organization [facility] Address [address] [place] [address] Care Team Providers Care Key Account Executive Name Role Phone Cuco Munoz MD Primary Care Provider [phone] Encounter Details Date Type Department Care Team (Late st Contact Info) Description 10/02/2024 Orders Only [facility] [address] [facility] [place] [address] Priscila Landry MA Social History Tobacco [...] AM EDT Routine [facility] [address] [place] [address] Eric Holly [address], [place] [address] documented as of this encounter Procedures Procedure Name Priority Date/Time Associated Diagnosis Comments PAP SMEAR Routine 09/18/2024 12:00 AM EST documented in this encounter Results * Pap Smear (09/18/2024 12:00 AM EST) Swab Cervical swab / Unknown [facility] ORDERABLES Final Re sult EXTERNAL LAB documented in this encounter Visit Diagnoses Not on filedocumented in this encounter Care Teams Key Account Executive Relationship Specialty Start Date End Date Cuco Munoz MD [address] [place] [address] PCP - General Family Medicine 06/24/23 documented as of this encounter
--- OUTSIDE RECORDS SUMMARY | 2025-01-23 15:03 | XMS_ITS | Encounter Summary ---
Author Organization [facility] Address [address] [place] [address] Care Team Providers Care Silk Snapper Name Role Phone Cuco Munoz MD Primary Care Provider [phone] Encounter Details Date Type Department Care Team (Late Contact Info) Description 01/09/2025 Bamboo flowsheet [facility] OB [address] [place] [address] Eric Holly [address] [place]ure[place], [facility]11 Social History Tobacco Use Types Packs/Day [...] EDT Routine [facility] OB [address] [place] [address] [facility] [address] [place], [facility]11 documented as of this encounter Visit Diagnoses Not on filedocumented in this encounter Care Teams Silk Snapper Relationship Specialty Start Date End Date Cuco Munoz MD [address] [place] [address] PCP - General Family Medicine 06/24/23 documented as of this encounter
[2025-01-23 15:34] VITALS: BP 134/86; PULSE 97
[2025-01-23 15:54] VITALS: BP 110/92; PULSE 95
[2025-01-23 15:55] VITALS: BP 120/79; PULSE 93
== END 2025-01-23 16:01 | disposition home or self-care (01) ==
LOC: US 15:00
PROVIDERS: Visit Provider Obstetrics & Gynecology
DX: O24.419 Gestational diabetes mellitus in pregnancy, unspecified control (principal); Z3A.36 36 weeks gestation of pregnancy
CPT/HCPCS: 76818

== ENCOUNTER 2025-01-31 15:58 | Outpatient (OUT) | payer MEDICAID, SELFPAY ==
--- OUTSIDE RECORDS SUMMARY | 2024-10-20 10:15 | XMS_ITS ---
Author Organization [facility] Serv es Address [address] [place] [address] Care Team Providers Care Blending Supervisor Name Role Phone Suki Mayer Primary Care Provider Halley Nugent Unavailable Clare Talley Unavailable [phone] REASON FOR VISIT BH f/u 2-4 weeks Encounters Encounter Location Date Provider Diagnosis [facility] [address] [place] [address] 10/20/2024 Clare Talley Plan Of Treatment Next Appt Details Provider Name:Karin Knowles, 04/25/2025 03:00:00 PM, [address] [place], [address], Progress Notes * MOUNIKA NELSONNURIAOB:1990 (34 yo F)Acc No.[id number]:10/20/2024 BH F/U - Patient Patient: ABRAM PALOMO Provider: Gerard Talley :1990 A ge:33 Y S ex:Female Date:10/20/2024 [address] [place] Pcp:Suki Mayer Subjective: * Chief Complaints: * 1 . BH f/u 2-4 weeks. Objective: Therapeutic Interventions: Assessment: Plan: * Images: Care Plan Details* * Electronic signature of RISHI Torres on 01/31/2025 at 04:01 PM EDT Sign off status: Pending * Provider: Gerard Talley Date: 0 10/20/2024 Generated for Sujatha Rivera on: 0 01/31/2025 04:01 PM EDT
--- OUTSIDE RECORDS SUMMARY | 2025-01-22 13:30 | XMS_ITS | Encounter Summary ---
Author Organization [facility] Address [address] [place] [address] Care Team Providers Care Armhole Raiser Lockstitch Name Role Phone Cuco Munoz MD Primary Care Provider [phone] Reason for Visit * Reason Comments Routine Visit Encounter Details Date Type Department Care Team (Late st Contact Info) Description 01/22/2025 1:30 PM EDT Routine [facility] OB [address] [place] [phone] Eric Holly, DO [address] [facility] [address] [place] Uriostegui, [facility]11 Third trimester ([facility]); 36 weeks gestation of ([facility]) Social History Tobacco Use Types [...] Sign Reading Time Taken Comments Blood Pressure 116/70 01/22/2025 2:02 PM EDT Pulse - - Temperature - - Respiratory Rate - - Oxygen Saturation - - Inhaled Oxygen Concentration - - Weight 94.3 kg (207 lb 12.8 oz) 01/22/2025 2:02 PM EDT Height - - Body Mass Index 34.58 06/24/2023 10:09 AM EST documented in this encounter Progress Notes * Tala Huizar NP - 01/22/2025 1:30 PM EDT Reason for Appointment: Patient ID: [...] Multiple Vitamins-Minerals (MULTIVITAMIN ADULT, MINERALS, PO) Multivitamin Zrceuydt-Jjb-Ua-FA ( 1 + IRON PO) ALLERGIES Allergies [...] 08/21/2024 History of pre-eclampsia 08/21/2024 Second trimester ([facility]) 08/21/2024 Resolved Ambulatory Problems Diagnosis Date [...] nursing note reviewed. Exam conducted with a tool machine setup operator present. Vitals: Estimated body mass index is 34.58 kg/m?? as calculated from the following: Height as of 06/24/23: 5' 5 . Weight as of this encounter: 207 lb 12.8 oz. BP: 116/70 Patient's last menstrual period was 05/14/2024. ASSESSMENT & PLAN ICD-10-CM 1. Third trimester ([facility]) Z34.93 POCT urinalysis dipstick manually resulted CULTURE, GROUP B STREP WITH SUSCEPTIBLITY CULTURE, GROUP B STREP WITH SUSCEPTIBLITY 2. 36 weeks gestation of ([facility]) Z3A.36 POCT urinalysis dipstick manually resulted Return OB: Patient presents today for a routine obstetrics appointment. Patient is currently 36w3d . Patient states she is doing well but has complaints of being tired due to current . Patient has verbalizes frequent movement. labor precautions was discussed/given and patient was instructed to perform kick counts three times a day. Orders Placed This Encounter Procedures CULTURE, GROUP B STREP WITH SUSCEPTIBLITY POCT urinalysis dipstick manually resulted Follow Up: Patient is to return to office in 1 week for routine OB appointment. Documented by Tala Huizar NP on behalf of: Eric Holly DO documented in this encounter Plan of Treatment Upcoming Encounters Date Type Department Care Team (Late st Contact Info) Description 02/05/2025 8:10 AM EDT Routine [facility] BCP OB [address] [facility] [place] [address] Eric Holly DO [address] [facility] [place] [address] documented as of this encounter Procedures Procedure Name Priority Date/Time Associated Diagnosis Comments CULTURE, GROUP B STREP WITH SUSCEPTIBLITY Routine 01/22/2025 2:10 PM EDT Third trimester ([facility]) POCT URINALYSIS DIPSTICK Routine 01/22/2025 2:07 PM EDT Third trimester ([facility]) 36 weeks gestation of ([facility]) documented in this encounter Results * CULTURE, GROUP B STREP WITH SUSCEPTIBLITY (01/22/2025 2:10 PM EDT) Swab 01/22/2025 2:10 PM EDT us Eric Holly DO LAB BLOOD ORDERABLES Final Resul t EXTERNAL LAB * (ABNORMAL) POCT urinalysis dipstick manually resulted (01/22/2025 2:07 PM EDT) Color, UA Yellow Clarity, UA Clear Glucose, UA Negative Negative - 2000(110) ++++ mg/dL Bilirubin, UA Negative Negative - 4(70) +++ mg/dL Ketones, UA Negative Negative - 160(16) ++++ mg/dL Spec Grav, UA 1.025 1 - 1.03 Blood, UA Negative Negative - 50 Oscar/mcL pH, UA 7.0 5 - 9 Protein, UA Negative Negative - 2000(20) ++++ mg/dL Urobilinogen, UA 1.0 0.2 - 12 mg/dL Leukocytes, UA Trace Negative - 500+++ Mike/mcL Nitrite, UA Negative Negative - Positive Urine 01/22/2025 2:07 PM EDT Eric Holly DO POINT OF CARE TEST ENTER/EDIT OR DERABLES Final Result documented in this encounter Visit Diagnoses Diagnosis Third trimester ([facility]) state, incidental 36 weeks gestation of ([facility]) documented in this encounter Care Teams Armhole Raiser Lockstitch Relationship Specialty Start Date End Date Cuco Munoz MD [address] [place] [id number] PCP - General Family Medicine 06/24/23 documented as of this encounter
--- OUTSIDE RECORDS SUMMARY | 2025-01-29 10:00 | XMS_ITS | Encounter Summary ---
Author Organization [facility] Address [address] [facility] [place] [address] Care Team Providers Care Pc Installation Engineer Name Role Phone Cuco Munoz MD Primary Care Provider [phone] Reason for Visit * Reason Comments Routine Visit Encounter Details Date Type Department Care Team (Late st Contact Info) Description 01/29/2025 10:00 AM EDT Routine [facility] [address] [place] [address] Eric Holly, DO [address] [facility] [place] [address] 37 weeks gestation of ([facility]); Third trimester ([facility]); H/O pre-eclampsia in prior , currently ([facility]); Diet controlled gestational diabetes mellitus (GDM), antepartum ([facility]) Social History Tobacco Use Types Packs/Day [...] Sign Reading Time Taken Comments Blood Pressure 110/70 01/29/2025 10:01 AM EDT Pulse - - Temperature - - Respiratory Rate - - Oxygen Saturation - - Inhaled Oxygen Concentration - - Weight 94.4 kg (208 lb 1.9 oz) 01/29/2025 10:01 AM EDT Height - - Body Mass Index 34.63 06/24/2023 10:09 AM EST documented in this encounter Progress Notes * Tala Huizar NP - 01/29/2025 10:00 AM EDT Reason for Appointment: Patient ID: Lynnette [...] Multiple Vitamins-Minerals (MULTIVITAMIN ADULT, MINERALS, PO) Multivitamin Hhwkovvq-Ose-Pq-FA ( 1 + IRON PO) valACYclovir (VALTREX) 500 mg, Daily ALLERGIES Allergies Allergen Reactions Amoxicillin Hives [...] 08/21/2024 History of pre-eclampsia 08/21/2024 Second trimester ([facility]) 08/21/2024 Resolved Ambulatory Problems Diagnosis [...] nursing note reviewed. Exam conducted with a oil burner servicer and installer present. Vitals: Estimated body mass index is 34.63 kg/m?? as calculated from the following: Height as of 06/24/23: 5' 5 . Weight as of this encounter: 208 lb 1.9 oz. BP: 110/70 Patient's last menstrual period was 05/14/2024. ASSESSMENT & PLAN ICD-10-CM 1. 37 weeks gestation of ([facility]) Z3A.37 POCT urinalysis dipstick manually resulted 2. Third trimester ([facility]) Z34.93 POCT urinalysis dipstick manually resulted 3. H/O pre-eclampsia in prior , currently ([facility]) O09.299 4. Diet controlled gestational diabetes mellitus (GDM), antepartum ([facility]) O24.410 Return OB: Patient presents today for a routine obstetrics appointment. Patient is currently 37w3d . Patient states she is doing well but has complaints of being tired due to current . Patient has verbalizes frequent movement. labor precautions was discussed/given and patient was instructed to perform kick counts three times a day. Orders Placed This Encounter Procedures POCT urinalysis dipstick manually resulted Follow Up: Patient is to return to office in 1 week for routine OB appointment. Continues to monitor glucose and doing well. With glucose 80's Documented by Tala Huizar NP on behalf of: Eric Holly DO documented in this encounter Plan of Treatment Upcoming Encounters Date Type Department Care Team (Late st Contact Info) Description 02/05/2025 8:10 AM EDT Routine [facility] [address] [facility] [address] Eric Holly DO [address] [facility] [address] [place], [place] [address] documented as of this encounter Procedures Procedure Name Priority Date/Time Associated Diagnosis Comments POCT URINALYSIS DIPSTICK Routine 01/29/2025 10:05 AM EDT 37 weeks gestation of ([facility]) Third trimester ([facility]) documented in this encounter Results * (ABNORMAL) POCT urinalysis dipstick manually resulted (01/29/2025 10:05 AM EDT) Color, UA Yellow Clarity, UA Clear Glucose, UA Negative Negative - 2000(110) ++++ mg/dL Bilirubin, UA Negative Negative - 4(70) +++ mg/dL Ketones, UA Negative Negative - 160(16) ++++ mg/dL Spec Grav, UA 1.010 1 - 1.03 Blood, UA Positive Negative - 50 Oscar/mcL Comment:moderate pH, UA 7.0 5 - 9 Protein, UA Negative Negative - 2000(20) ++++ mg/dL Urobilinogen, UA 0.2 0.2 - 12 mg/dL Leukocytes, UA Negative Negative - 500+++ Mike/mcL Nitrite, UA Negative Negative - Positive Urine 01/29/2025 10:0 5 AM EDT Eric Holly DO POINT OF CARE TEST ENTER/EDIT OR DERABLES Final Result documented in this encounter Visit Diagnoses Diagnosis 37 weeks gestation of ([facility]) Third trimester ([facility]) state, incidental H/O pre-eclampsia in prior , currently ([facility]) Diet controlled gestational diabetes mellitus (GDM), antepartum ([facility]) documented in this encounter Care Teams Pc Installation Engineer Relationship Specialty Start Date End Date Cuco Muonz MD [address] [place] [address] PCP - General Family Medicine 06/24/23 documented as of this encounter
--- NOTE | 2025-01-31 16:01 | US_ITS ---
The [address] [address] Patient Name: ABRAM NELSON MRN: [id number] date: 1990 Sex: F Assigned Patient Location: Current Patient Location: Accession/Order Number: [id number] Exam Date: 02/01/2025 09:05 Report Date: 02/01/2025 09:07 At the request of: KERMIT MG DO Procedure: US OB BPP w non-stress BIOPHYSICAL PROFILE: CLINICAL INFORMATION: GESTATIONAL DIABETES MELLITUS O24.419 COMPARISON: 01/23/2025 There is a single live intrauterine gestation in cephalic presentation. The reported gestational age is 37 weeks 5 days. The heart rate beats per minute. FINDINGS: TONE: 1 or more episodes of activity extension and flexion of extremity or opening and closing of the hand [Y] 2/2 GROSS BODY MOVEMENTS: 3 or more discrete body or limb movements [Y] 2/2 BREATHING MOVEMENTS: 1 or more episodes of breathing lasting at least 30 seconds [Y] 2/2 ANABELA: A single deepest vertical pocket of amniotic fluid greater than 2 cm [Y] 2/2 ANABELA: 21.6 cm. The 95th percentile is 23.9 cm. Total score: 8/8 US/ OB BPP w non-stress IMPRESSION: NORMAL BIOPHYSICAL PROFILE. Impression dictated by: Libia Shrestha M.D. 02/01/2025 9:07 AM Dictation Location: [place] [address] Electronically authenticated by: [id number] Y Date: 02/01/2025 09:07
--- OUTSIDE RECORDS SUMMARY | 2025-01-31 16:01 | XMS_ITS | Patient Health Record ---
Author Organization [facility] Address [address] [place] [address] Care Team Providers Care Flat Ironer Name Role Phone Suki Mayer Primary Care Provider Halley Nugent Unavailable [phone] Clare Talley Unavailable [phone] Karin Knowles Unavailable [phone] Pema Law Unavailable [phone] Allergies Allergen (clinical drug ingredient) Drug/Non Drug [...] Risk Notes Problem Uncomplicated mild persistent asthma (250135996) Mild persistent asthma without complication (J45.30) Active [...] 09/12/2024 Encounters Encounter Location Date Provider Diagnosis [facility] [address] [place] [address] 03/29/2024 Clare [place] [address] [place] [address] 06/08/2024 Clare [place] [address] [place] [address] 06/26/2024 [place] [address] [place] [place] [address] 09/12/2024 Suki Mayer Mild persistent asth ma without complication J45.30 and Influenza A J10.1 [facility] [address] [place] [address] 04/13/2024 Clare Jacobsron Depression, major, recurrent, mild F33.0 [facility] [address] [place] [address] 04/25/2024 Clare Shedron Depression, major, recurrent, mild F33.0 [facility] [address] [place] [address] 05/09/2024 Clare Shedron Depression, major, recurrent, mild F33.0 [facility] [address] [facility] [address] 06/26/2024 Clare Shedron Depression, major, recurrent, mild F33.0 [facility] [address] [facility] [address] 07/13/2024 Clare Shedron Depression, major, recurrent, mild F33.0 [facility] [address] [place] [address] 08/11/2024 Clare Shedron Depression, major, recurrent, mild F33.0 [facility] [address] [place] [address] 08/25/2024 Clare Shedron Depression, major, recurrent, mild F33.0 [facility] [address] [place] [address] 09/29/2024 Clare Shedron Depression, major, recurrent, mild F33.0 [facility] [address] [place] [address] 05/24/2024 Clare Shedron Depression, major, recurrent, mild F33.0 [facility] [address] [place] [address] 10/05/2024 Karin Knowles Encounter for dental examination [...] Provider Name:Karin Knowles, 04/25/2025 03:00:00 PM, [address] [place], [address], Insurance Providers Payer Name Payer Address Payer Phone Subscriber Number Group Number Insured Name Patient Relationship to Insured Coverage Start Date Coverage End Date [employer] [place] Medicaid [address] [place] [address] [id number] ABRAM NELSON Self - patient is the insured 3 Wrap CFC [facility] [address] [place] [address] [id number] ABRAM NELSON Self - patient is the insured 3 [facility] Medicaid- termed 22 [address] [place] [address] [id number] ABRAM NELSON Self - patient is the insured 2 3 zMedicaid CFC [facility] [address] [place] [address] [id number] ABRAM NELSON Self - patient is the insured 2 3 zDENTAL [employer] -termed 22 [address] [place] [address] [id number] ABRAM NELSON Self - patient is the insured 2 3 zDental MEDICAID CFC after [place] -termed 22 [address] [place] [address] [id number] ABRAM NELSON Self - patient is the insured 2 3 Dental [place] [address] [place] [id number] [id number] ABRAM NELSON Self - patient is the insured 3 Dental Wrap [facility] [address] [place] [address] [id number] ABRAM NELSON Self - patient is the insured 3 [facility] [address] [place] [address] [id number] ABRAM NELSON Self - patient is the insured 4 BH Wrap [facility] [address] [place] [address] [id number] ABRAM NELSON Self - patient is the insured 4 D[facility] [address] [address] [place] [phone] [id number] ABRAM NELSON Self - patient is the insured 5 Medical (General) History Medical History History ICD Code Asthma
--- OUTSIDE RECORDS SUMMARY | 2025-01-31 16:02 | XMS_ITS | Clinical Summary ---
Author Organization [facility] Address [address] [place] [address] Care Team Providers Care Crop Production Advisor Name Role Phone Cuco Munoz MD Primary Care Provider [phone] Allergies Active Allergy Reactions Criticality Noted Date Comments Amoxicillin Hives,Rash Low 02/07/2017 Other Reaction(s): hives, Unknown Azithromycin Hives,Rash Low 02/07/2017 Cefaclor Hives,Rash Low 02/07/2017 Clarithromycin Hives,Rash,Unknown Low 02/07/2017 Other Reaction(s): hives Doxycycline Hives,Rash Low 06/24/2023 Sulfa Antibiotics Hives,Rash Low 02/06/2017 Other Reaction(s): hives, Unknown Sulfamethoxazole-Trimetho prim Hives,Rash Low 02/07/2017 Other Reaction(s): hives, Unknown Medications Fwwhuvjf-Mch-Ar -FA ( 1 + IRON PO) Active albuterol HFA 90 mcg/act inhaler every 4 (four) hours 5 Active Multiple Vitamins-Minera ls (MULTIVITAMIN ADULT, MINERALS, PO) Multivitamin Act violeta Alcohol Swabs (Alcohol Prep Pad) 70 % padsIndications :Gestational diabetes mellitus (GDM), antepartum, gestational diabetes method of control unspecified (HHS-HCC),[place] lisa glucose tolerance test Apply 1 Pad topically Daily Use four times daily to check FSBS. 150 each 3 5 Active Blood Glucose Monitoring Suppl (ONE TOUCH ULTRA 2) w/Device kitIndications: Gestational diabetes mellitus (GDM), antepartum, gestational diabetes method of control unspecified (HHS-HCC),[place] lisa glucose tolerance test USE FOUR TIMES DAILY TO CHECK FASTING BLOOD SUGAR. IN THE MORNING PRIOR TO BREAKFAST & 1 HOUR AFTER EACH MEAL FOR A TOTAL OF 4TIMES DAILY. 1 kit 5 Active Lancets Ultra Thin miscIndications :Gestational diabetes mellitus (GDM), antepartum, gestational diabetes method of control unspecified ([facility]),[place] lisa glucose tolerance test 1 each by In Vitro route Daily Use to check FSBS four times daily 150 each 3 5 025 Active valACYclovir (Valtrex) 500 MG tablet Take 500 mg by mouth Daily 5 Active Glucose Blood (Blood Glucose Test) stripIndication s:Gestational diabetes mellitus (GDM), antepartum, gestational diabetes method of control unspecified ([facility]),[place] lisa glucose tolerance test 1 strip by In Vitro route Daily Use in the morning prior to breakfast, 1 hour after each meal for a total of 4times daily. 150 strip 3 5 025 Active Problems Problem Noted Date Diagnosed Date History of anemia 08/21/2024 Tinea pedis 08/21/2024 History of pre-eclampsia 08/21/2024 Second trimester ([facility]) 08/21/2024 Estimated Date of Delivery Comme nts Yes 02/16/2025 Based on Ultraso und Encounters Date Type Department Care Team Description 01/29/2025 10:00 AM EDT Routine [facility] [address] [place] [address] [place] [address] Kermit Holly, DO 37 weeks gestation of ([facility]); Third trimester ([facility]); H/O pre-eclampsia in prior , currently ([facility]); Diet controlled gestational diabetes mellitus (GDM), antepartum ([facility]) 01/29/2025 Bamboo flowsheet [facility] OB [address] [facility] [place] [address] Kermit Holly, 01/26/2025 Travel 01/23/2025 Clinisync Result Encounter [facility] External Department Unsolicited Kermit Holly, DO 01/22/2025 1:30 PM EDT Routine [facility] OB [address] [facility] [address] Kermit Holly, DO Third trimester ([facility]); 36 weeks gestation of ([facility]) 01/22/2025 Bamboo flowsheet [facility] [address] [place] [address] [place] [address] Kermit Holly, DO 01/19/2025 Travel 01/18/2025 Clinisync Result Encounter [facility] External Department Unsolicited Kermit Holly, DO 01/10/2025 Clinisync Result Encounter [facility] External Department Unsolicited Kermit Holly, DO 01/09/2025 1:40 PM EDT Routine [facility] OB [address] [place] [address] [place] [address] Kermit Holly, DO Third trimester ([facility]); 34 weeks gestation of ([facility]); H/O pre-eclampsia in prior , currently ([facility]); Diet controlled gestational diabetes mellitus (GDM), antepartum ([facility]) 01/09/2025 Bamboo flowsheet [facility] OB [address] [place] [address] [place] [address] Kermit Holly, DO 01/06/2025 Travel 01/04/2025 Telephone [facility] OB [address] [place] [address] [place] [address] Priscila Landry MA 01/03/2025 Clinisync Result Encounter [facility] External Department Unsolicited Kermit Holly, DO 01/01/2025 Telephone [facility] OB [address] [place] [address] [place] [address] Priscila Landyr MA 12/27/2024 Clinisync Result Encounter [facility] External Department Unsolicited Kermit Holly, DO 12/27/2024 Clinisync Result Encounter [facility] External Department Unsolicited Kermit Holly, DO 12/25/2024 2:00 PM EDT Routine [facility] [address] [place] [address] Kermit oHlly, 32 weeks gestation of ([facility]); Third trimester ([facility]); Gestational diabetes mellitus (GDM), antepartum, gestational diabetes method of control unspecified ([facility]); Elevated glucose tolerance test 12/25/[address] [address] [place] [address] Kermit Holly, Gestational diabetes mellitus (GDM), antepartum, gestational diabetes method of control unspecified ([facility]); Elevated glucose tolerance test 12/22/2024 Travel 12/13/2024 2:30 PM EDT Routine [facility] [address] [place] [address] Kermit Holly, 30 weeks gestation of ([facility]); Third trimester ([facility]); Gestational diabetes mellitus (GDM), antepartum, gestational diabetes method of control unspecified ([facility]) 12/13/2024 Bamboo flowsheet [facility] [address] [place] [address] Kermit Holly, 12/10/2024 Travel 11/28/2024 1:50 PM EDT Routine [facility] [address] [place] [address] Kermit Holly, Third trimester ([facility]); 28 weeks gestation of ([facility]) 11/28/2024 Bamboo flowsheet [facility]OM[facility] [address] [place] [address] Kermit Holly, 11/25/2024 Travel 11/23/[address] [facility] [address] [place] [address] Keiko Bruce MA 11/23/2024 Clinisync Result Encounter [facility] External Department Unsolicited Kermit Holly, 11/16/2024 Clinisync Result Encounter [facility] External Department Unsolicited Kermit Holly DO 11/07/2024 1:20 PM EDT Routine [facility] OB [address] [facility] [address] Kermit Holly, Second trimester ([facility]); 25 weeks gestation of ([facility]); Diabetes mellitus screening 11/07/2024 Bamboo flowsheet [facility] [address] [place] [address] [place] [address] Kermit Holly DO 11/05/2024 Travel from Last 3 Months Social History Tobacco [...] 1.9 oz) 01/29/2025 10:01 AM EDT Height 165.1 cm (5' 5 ) 06/24/2023 10:09 AM EST Body Mass Index 34.63 06/24/2023 10:09 AM EST Plan of Treatment Upcoming Encounters Date Type Department Care Team (Late st Contact Info) Description 02/05/2025 8:10 AM EDT Routine [facility] OB [address] [place] [address] [place] [address] Kermit Holly, [address] Mary [place], [place] [phone] Health Maintenance Due Date Last Done Comments Influenza Vaccine (#1) 2025 Cervical Cancer Screening 09/18/2025 HPV/Cotest 09/18/2025 Pap Smear 09/18/2025 09/18/2024 Procedures Procedure Name Priority Date/Time Associated Diagnosis Comments POCT URINALYSIS DIPSTICK Routine 01/29/2025 10:05 AM EDT 37 weeks gestation of ([facility]) Third trimester ([facility]) US OB BPP W NON-STRESS 01/23/2025 10:58 PM EDT CULTURE, GROUP B STREP WITH SUSCEPTIBLITY Routine 01/22/2025 2:10 PM EDT Third trimester ([facility]) POCT URINALYSIS DIPSTICK Routine 01/22/2025 2:07 PM EDT Third trimester ([facility]) 36 weeks gestation of ([facility]) US OB BPP W NON-STRESS 01/18/2025 8:14 AM EDT US OB BPP W NON-STRESS 01/10/2025 7:01 PM EDT POCT URINALYSIS DIPSTICK Routine 01/09/2025 1:53 PM EDT Third trimester ([facility]) US OB BPP W NON-STRESS 01/03/2025 8:19 PM EDT US OB GROWTH 12/27/2024 7:37 PM EDT US OB BPP W NON-STRESS 12/27/2024 7:37 PM EDT POCT URINALYSIS DIPSTICK Routine 12/25/2024 2:32 PM EDT 32 weeks gestation of ([facility]) POCT URINALYSIS DIPSTICK Routine 12/13/2024 3:07 PM EDT 30 weeks gestation of ([facility]) Third trimester ([facility] GLUCOSE 1 HOUR Routine 11/23/2024 10:40 AM EDT ALL CBC WITH AUTO DIFF Routine 10:40 AM EDT TBH UA (CLEAN/CATCH) NEONATAL NURSE/MICRO IF IND. Routine 11/16/2024 7:27 PM EDT POCT URINALYSIS DIPSTICK Routine 11/07/2024 1:47 PM EDT Second trimester ([facility]) PAP SMEAR Routine 09/18/2024 12:00 AM EST from Last 3 Months or Most Recently Relevant to Health Maintenance Results * (ABNORMAL) POCT urinalysis dipstick manually resulted (01/29/2025 10:05 AM EDT) Only the most recent of6 resultswithin the time period is included. Color, [...] Positive Urine 01/29/2025 10:0 5 AM EDT Kermit Holly DO POINT OF CARE TEST ENTER/EDIT OR DERABLES Final Result * US OB BPP W NON-STRESS (01/23/2025 10:58 PM EDT) Only the most recent of5 resultswithin the time period is included. Anatomical Region Laterality Modality Other 01/23/2025 10:5 8 PM EDT Narrative 01/23/2025 11:01 [place] [address] Ultrasound Report Signed Patient: LYNNETTE NELSON MR#: [id number] : 1990 Acct:[id number] Age/Sex: 34 / F ADM Date: 01/23/25 Loc: US Attending Dr: Kermit Holly D.O. Ordering Physician: Kermit Holly D.O. Date of Service: 01/23/25 Procedure(s): US OB BPP w non-stress Accession Number(s): [id number] cc: Kermit Holly D.O.; Physician,Non-Staff [place] [address] Patient Name: LYNNETTE NELSON MRN: [id number] date: 1990 Sex: F Assigned Patient Location: US Current Patient Location: Accession/Order Number: [id number] Exam Date: 01/23/2025 15:49 Report Date: 01/23/2025 22:58 At the request of: KERMIT HOLLY DO Procedure: US OB BPP w non-stress Ultrasound biophysical profile HISTORY: Adequate breathing movement, gross body movement, tone and amniotic fluid volume for total score of 8 out of 8. The amniotic fluid index is 19.1cm within normal limits. The heart rate 140 bpm. US/US OB BPP w non-stress IMPRESSION: Adequate ultrasound biophysical profile Impression dictated by: David Chaudhari M.D. 01/23/2025 10:58 PM Dictation Location: [place] [address] Electronically authenticated by: [id number] Y Date: 01/23/2025 22:58 Dictated By: David Chaudhari D.O. Signed By: 01/23/255 DD/ TD/TT: Php Magento Developer: Procedure Note Radiology, Radiologist, - 01/23/2025 [facility] [place] [id number] Ultrasound Report Signed Patient: LYNNETTE NELSON RMR#: [id number] : 1990Acct:[id number] Age/Sex: 34 / FADM Date: 01/23/25 Loc: US Attending Dr: Kermit Holly D.O. Ordering Physician: Kermit Holly D.O. Date of Service: 01/23/25 Procedure(s): US OB BPP w non-stress Accession Number(s): [id number] cc: Kermit Holly D.O.; Physician,Non-Staff [place] [address] Patient Name: LYNNETTE NELSON MRN: [id number] date: 1990 Sex: F Assigned Patient Location: US Current Patient Location: Accession/Order Number: [id number] Exam Date: 01/23/2025 15:49 Report Date: 01/23/2025 22:58 At the request of: KERMIT HOLLY DO Procedure: US OB BPP w non-stress Ultrasound biophysical profile HISTORY: Adequate breathing movement, gross body movement, tone and amniotic fluid volume for total score of 8 out of 8. The amniotic fluidindex is 19.1cm within normal limits. The heart rate 140 bpm. US/US OB BPP w non-stress IMPRESSION: Adequate ultrasound biophysical profile Impression dictated by: David Chaudhari M.D. 01/23/2025 10:58 PM Dictation Location: [place] [address] Electronically authenticated by: [id number] Y Date: 2:58 Dictated By: David Chaudhari D.O. Signed By:01/23/255 DD/ 57 TD/TT: Php Magento Developer: Kermit Holly DO [facility] Final Result * CULTURE, GROUP B STREP WITH SUSCEPTIBLITY (01/22/2025 2:10 PM EDT) Swab 01/22/2025 2:10 PM EDT Kermit Holly DO LAB BLOOD ORDERABLES Final Resul t EXTERNAL LAB * US OB GROWTH (12/27/2024 7:37 PM EDT) Anatomical Region Laterality Modality Other 12/27/2024 7:37 PM EDT Narrative 12/27/2024 7:40 [place] [address] Ultrasound Report Signed Patient: LYNNETTE NELSON MR#: [id number] : 1990 Acct:[id number] Age/Sex: 34 / F ADM Date: 12/27/24 Loc: US Attending Dr: Kermit Holly D.O. Ordering Physician: Kermit Holly D.O. Date of Service: 12/27/24 Procedure(s): US OB growth Accession Number(s): [id number] cc: Kermit Holly D.O.; Physician,Non-Staff [place] [address] Patient Name: LYNNETTE NELSON MRN: [id number] date: 1990 Sex: F Assigned Patient Location: US Current Patient Location: Accession/Order Number: [id number] Exam Date: 12/27/2024 19:33 Report Date: 12/27/2024 [...] Chaudhari M.D. 12/27/2024 7:37 PM Dictation Location: [facility] Electronically authenticated by: [id number] Y Date: 12/27/2024 19:37 Dictated By: David Chaudhari D.O. Signed By: 12/27/241939 DD/ 36 TD/TT: Php Magento Developer: Procedure Note Radiology, Radiologist, - 12/28/2024 [place] [address] Ultrasound Report Signed Patient: LYNNETTE NELSON RMR#: [id number] : 1990Acct:[id number] Age/Sex: 34 / FADM Date: 12/27/24 Loc: US Attending Dr: Kermit Holly D.O. Ordering Physician: Kermit Holly D.O. Date of Service: 12/27/24 Procedure(s): US OB growth Accession Number(s): [id number] cc: Kermit Holly D.O.; Physician,Non-Staff [place] [address] Patient Name: LYNNETTE NELSON MRN: [id number] date: 1990 Sex: F Assigned Patient Location: US Current Patient Location: Accession/Order Number: [id number] Exam Date: 12/27/2024 19:33 Report Date: 12/27/2024 [...] Chaudhari M.D. 12/27/2024 7:37 PM Dictation [facility] Electronically authenticated by: [id number] Y Date: 9:37 Dictated By: David Chaudhari D.O. Signed By:12/27/241939 DD/ 36 TD/TT: Php Magento Developer: us Kermit Elayne DO [facility] Final Result * (ABNORMAL) GLUCOSE 1 HOUR (11/23/2024 10:40 AM EDT) GLUCOSE 1 HOUR 191(H) <130 mg/dL [facility] 11/23/2024 10:4 0 AM EDT 11/23/2024 10:42 AM EDT Narrative [facility] - 11/23/2024 11:31 AM EDT Kermit Elayne DO LAB BLOOD ORDERABLES Final Resul t [facility] * (ABNORMAL) ALL CBC WITH AUTO DIFF [...] Result [facility] * [facility] UA (CLEAN/CATCH) NEONATAL NURSE/MICRO IF IND. (11/16/2024 7:27 PM EDT) COLOR [...] [facility] - 11/16/2024 8:12 PM EDT Kermit Inmano DO [facility] Final Result [facility] TB * Pap Smear (09/18/2024 12:00 AM EST) Swab Cervical swab / Unknown Loraine OLIVO LAB CYTOLOGY ORDERABLES Final Re sult EXTERNAL LAB from Last 3 Months or Most Recently Relevant to Health Maintenance Insurance [employer] MEDICA[place] Care Teams Crop Production Advisor Relationship Specialty Start Date End Date Cuco Munoz MD [address] [place] [address] PCP - General Family Medicine 06/24/23
--- OUTSIDE RECORDS SUMMARY | 2025-01-31 16:02 | XMS_ITS | Encounter Summary ---
Author Organization [facility] Address [address] [place] [address] Care Team Providers Care Campaign Advisor Name Role Phone Cuco Munoz MD Primary Care Provider [phone] Encounter Details Date Type Department Care Team (Late st Contact Info) Description 01/23/2025 Clinisync Result Encounter [facility] External Department Unsolicited Kermit Holly, DO [address] [place], [place] [phone] Social History Tobacco Use Types Packs/Day Years [...] Description 02/05/2025 8:10 AM EDT Routine [facility] OB [address] [place] [phone] Kermit Holly DO [address] [place] [address] [place] [address] documented as of this encounter Procedures Procedure Name Priority Date/Time Associated Diagnosis Comments US OB BPP W NON-STRESS 01/23/2025 10:58 PM EDT documented in this encounter Results * US OB BPP W NON-STRESS (01/23/2025 10:58 PM EDT) Anatomical Region Laterality Modality Other 01/23/2025 10:5 8 PM EDT Narrative 01/23/2025 11:01 [place] [address] Ultrasound Report Signed Patient: LYNNETTE NELSON MR#: [id number] : 1990 Acct:[id number] Age/Sex: 34 / F ADM Date: 01/23/25 Loc: US Attending Dr: Kermit Holly D.O. Ordering Physician: Kermit Holly D.O. Date of Service: 01/23/25 Procedure(s): US OB BPP w non-stress Accession Number(s): [id number] cc: Kermit Holly D.O.; Physician,Non-Staff [place] [address] Patient Name: LYNNETTE NELSON MRN: [id number] date: 1990 Sex: F Assigned Patient Location: US Current Patient Location: Accession/Order Number: [id number] Exam Date: 01/23/2025 15:49 Report Date: 01/23/2025 [...] Chaudhari M.D. 01/23/2025 10:58 PM Dictation Location[facility] Electronically authenticated by: [id number] Y Date: 01/23/2025 22:58 Dictated By: David Chaudhari D.O. Signed By: 01/23/252300 DD/ 57 TD/TT: Olericulturist: Procedure Note Radiology, Radiologist, - 01/23/2025 [place] [address] Ultrasound Report Signed Patient: LYNNETTE NELSON RMR#: [id number] : 1990Acct:[id number] Age/Sex: 34 / FADM Date: 01/23/25 Loc: US Attending Dr: Kermit Holly D.O. Ordering Physician: Kermit Holly D.O. Date of Service: 01/23/25 Procedure(s): US OB BPP w non-stress Accession Number(s): [id number] cc: Kermit Holly D.O.; Physician,Non-Staff [place] [address] Patient Name: LYNNETTE NELSON MRN: [id number] date: 1990 Sex: F Assigned Patient Location: US Current Patient Location: Accession/Order Number: [id number] Exam Date: 01/23/2025 15:49 Report Date: 01/23/2025 [...] Chaudhari M.D. 01/23/2025 10:58 PM Dictation Location: [place] [address] Electronically authenticated by: [id number] Y Date: 2:58 Dictated By: David Chaudhari D.O. Signed By:01/23/252300 DD/ 57 TD/TT: Olericulturist: us Kermit Holly DO [facility] Final Result documented in this encounter Visit Diagnoses Not on filedocumented in this encounter Care Teams Campaign Advisor Relationship Specialty Start Date End Date Cuco Munoz MD [address] [place] [address] PCP - General Family Medicine 06/24/23 documented as of this encounter
--- OUTSIDE RECORDS SUMMARY | 2025-01-31 16:02 | XMS_ITS | Encounter Summary ---
Author Organization [facility] Address [address] [place] [address] Care Team Providers Care Environmental Field Office Manager Name Role Phone Cuco Munoz MD Primary Care Provider [phone] Encounter Details Date Type Department Care Team (Latest Contact Info) Description 01/26/2025 Travel Social History Tobacco Use Types Packs/Day [...] BCP OB [address] [place] [address] Eric Holly, DO [address] [place] [id number] documented as of this encounter Visit Diagnoses Not on filedocumented in this encounter Care Teams Environmental Field Office Manager Relationship Specialty Start Date End Date Cuco Munoz MD [address] [place] [address] PCP - General Family Medicine 06/24/23 documented as of this encounter
--- OUTSIDE RECORDS SUMMARY | 2025-01-31 16:02 | XMS_ITS | Encounter Summary ---
Author Organization [facility] Address [address] [place] [address] Care Team Providers Care Integration Developer Name Role Phone Cuco Munoz MD Primary Care Provider [phone] Encounter Details Date Type Department Care Team (Late Contact Info) Description 01/29/2025 Bamboo flowsheet [facility] OB [address] [place] [address] Eric Holly [address] Maureen [place], [facility] Social History Tobacco Use Types Packs/Day [...] Description 02/05/2025 8:10 AM EDT Routine [facility] OB [address] [place] [address] Eric Holly [facility] [address] [place], [facility]11 documented as of this encounter Visit Diagnoses Not on filedocumented in this encounter Care Teams Integration Developer Relationship Specialty Start Date End Date Cuco Munoz MD [address] [place] [address] PCP - General Family Medicine 06/24/23 documented as of this encounter
--- OUTSIDE RECORDS SUMMARY | 2025-01-31 16:02 | XMS_ITS | Encounter Summary ---
Author Organization [facility] Address [address] [place] [address] Care Team Providers Care Take Out Waiter/Waitress Name Role Phone Cuco Munoz MD Primary Care Provider [phone] Encounter Details Date Type Department Care Team (Late Contact Info) Description 01/22/2025 Bamboo flowsheet [facility] OB [address] [place] [address] Eric Holly [address] Maureen [place], [facility] [...] Description 02/05/2025 8:10 AM EDT Routine [facility] OB [address] [place] [address] [facility] [place], [facility] documented as of this encounter Visit Diagnoses Not on filedocumented in this encounter Care Teams Take Out Waiter/Waitress Relationship Specialty Start Date End Date Cuco Munoz MD [address] [place] [address] PCP - General Family Medicine 06/24/23 documented as of this encounter
--- OUTSIDE RECORDS SUMMARY | 2025-01-31 16:02 | XMS_ITS | Encounter Summary ---
Author Organization [facility] Address [address] [place] [address] Care Team Providers Care Dish Network Installer Name Role Phone Cuco Munoz MD Primary Care Provider [phone] Encounter Details Date Type Department Care Team [...] BCP OB [address] [place] [address] Eric Holly, DO [address] [place] [id number] documented as of this encounter Visit Diagnoses Not on filedocumented in this encounter Care Teams Dish Network Installer Relationship Specialty Start Date End Date Cuco Munoz MD [address] [place] [address] PCP - General Family Medicine 06/24/23 documented as of this encounter
--- OUTSIDE RECORDS SUMMARY | 2025-01-31 16:02 | XMS_ITS | Clinical Summary ---
Author Organization [facility] Address [address] [email or web address] [address] Care Team Providers Care Tennis Professional Name Role Phone Viry Cortez MD Primary [...] 3:00 AM 02/07/2017 8:37 PM Care Teams Tennis Professional Relationship Specialty Start Date End Date Viry Cortez MD [address] [facility] [place] [address] PCP - General 02/07/17
--- OUTSIDE RECORDS SUMMARY | 2025-01-31 16:02 | XMS_ITS | Encounter Summary ---
Author Organization [facility] Address [address] [place] [address] Care Team Providers Care Sr. Manager Marketing Name Role Phone Cuco Munoz MD Primary Care Provider Encounter Details Date Type Department Care Team (Late st Contact Info) Description 07/21/2024 Clinisync Result Encounter [facility] External Department Unsolicited Kermit Holly, DO [address] [place], [place] [id number] Social History Tobacco Use Types Packs/Day Years [...] Description 02/05/2025 8:10 AM EDT Routine [facility] OB [address] [place] [id number] Kermit Holly DO [address] [place] [address] [place] [address] documented as of this encounter Procedures Procedure Name Priority Date/Time Associated Diagnosis Comments US OB TRANSVAGINAL 07/21/2024 4: 17 PM EST documented in this encounter Results * US OB TRANSVAGINAL (07/21/2024 4:17 PM EST) Anatomical Region Laterality Modality Other 07/21/2024 4:17 PM EST Narrative 07/21/2024 4:20 [place] [address] Ultrasound Report Signed Patient: LYNNETTE NELSON MR#: [id number] : 1990 Acct:[id number] Age/Sex: 33 / F ADM Date: 07/21/24 Loc: [facility] Attending Dr: Kermit Holly D.O. Ordering Physician: Kermit Holly D.O. Date of Service: 07/21/24 Procedure(s): US OB transvaginal Accession Number(s): [id number] cc: Kermit Holly D.O.; Physician,Non-Staff M.DMicah The [address] [address] Patient Name: LYNNETTE NELSON MRN: [id number] date: 1990 Sex: F Assigned Patient Location: [facility] Current Patient Location: [facility] Accession/Order Number: [id number] Exam Date: 07/21/2024 10:15 Report Date: 07/21/2024 [...] Signed By: 07/21/24 1620 DD/ 1617 TD/TT: Forklift Driver: Procedure Note Radiology, Radiologist, MD - 07/21/2024 [place] [address] Ultrasound Report Signed Patient: LYNNETTE NELSON RMR#: [id number] : 1990Acct:[id number] Age/Sex: 33 / FADM Date: 07/21/24 Loc: [facility] Attending Dr: Kermit Holly D.O. Ordering Physician: Kermit Holly D.O. Date of Service: 07/21/24 Procedure(s): US OB transvaginal Accession Number(s): [id number] cc: Kermit Holly D.O.; Physician,Non-Staff [place] [facility] [place] [id number] Patient Name: LYNNETTE NELSON MRN: [id number] date: 1990 Sex: F Assigned Patient Location: [facility] Current Patient Location: [facility] Accession/Order Number: [id number] Exam Date: 07/21/2024 10:15 Report Date: 07/21/2024 [...] M.D. Signed By:07/21/24 162 DD/ 16 TD/TT: Forklift Driver: us Kermit Elayne DO [facility] Final Result documented in this encounter Visit Diagnoses Not on filedocumented in this encounter Care Teams Sr. Manager Marketing Relationship Specialty Start Date End Date Cuco Munoz MD [address] [place] [address] PCP - General Family Medicine 06/24/23 documented as of this encounter
--- OUTSIDE RECORDS SUMMARY | 2025-01-31 16:02 | XMS_ITS | Encounter Summary ---
Author Organization [facility] Address [address] [place] [address] Care Team Providers Care Clinical Nurse Name Role Phone Cuco Munoz MD Primary Care Provider [phone] Encounter Details Date Type Department Care Team (Late st Contact Info) Description 01/18/2025 Clinisync Result Encounter [facility] External Department Unsolicited Kermit Holly, DO [address] [place], [place] [id number] Social History Tobacco Use Types Packs/Day Years [...] Description 02/05/2025 8:10 AM EDT Routine [facility] OB [address] [place] [phone] Kermit Holly DO [address] [place] [address] [place] [address] documented as of this encounter Procedures Procedure Name Priority Date/Time Associated Diagnosis Comments US OB BPP W NON-STRESS 01/18/2025 8:14 AM EDT documented in this encounter Results * US OB BPP W NON-STRESS (01/18/2025 8:14 AM EDT) Anatomical Region Laterality Modality Other 01/18/2025 8:14 AM EDT Narrative 01/18/2025 8:16 [place] [address] Ultrasound Report Signed Patient: LYNNETTE NELSON MR#: [id number] : 1990 Acct:[id number] Age/Sex: 34 / F ADM Date: 01/17/25 Loc: US Attending Dr: Kermit Holly D.O. Ordering Physician: Kermit Holly D.O. Date of Service: 01/17/25 Procedure(s): US OB BPP w non-stress Accession Number(s): [id number] cc: Kermit Holly D.O.; Physician,Non-Staff M[facility] The [place] [address] Patient Name: LYNNETTE NELSON MRN: [id number] date: 1990 Sex: F Assigned Patient Location: Current Patient Location: Accession/Order Number: [id number] Exam Date: 01/18/2025 08:13 Report Date: 01/18/2025 [...] Shrestha M.D. 01/18/2025 8:14 AM Dictation Location: [place] [address] Electronically authenticated by: [id number] Y Date: 01/18/2025 08:14 Dictated By: Libia Shrestha M.D. Signed By: 01/18/25815 DD/ 3 TD/TT: Petrologist: Procedure Note Radiology, Radiologist, MD - 01/18/2025 [place] [address] Ultrasound Report Signed Patient: LYNNETTE NELSON RMR#: [id number] : 1990Acct:[id number] Age/Sex: 34 / FADM Date: 01/17/25 Loc: US Attending Dr: Kermit Holly D.O. Ordering Physician: Kermit Holly D.O. Date of Service: 01/17/25 Procedure(s): US OB BPP w non-stress Accession Number(s): [id number] cc: Kermit Holly D.O.; Physician,Non-Staff [place] [facility] [address] [id number] Patient Name: LYNNETTE NELSON MRN: [id number] date: 1990 Sex: F Assigned Patient Location: US Current Patient Location: Accession/Order Number: [id number] Exam Date: 01/18/2025 08:13 Report Date: 01/18/2025 [...] Shrestha M.D. 01/18/2025 8:14 AM Dictation Location: [place] [address] Electronically authenticated by: [id number] Y Date: 508:14 Dictated By: Libia Shrestha M.D. Signed By:01/18/2516 DD/ TD/TT: Petrologist: us Kermit Elayne DO [facility] Final Result documented in this encounter Visit Diagnoses Not on filedocumented in this encounter Care Teams Clinical Nurse Relationship Specialty Start Date End Date Cuco Munoz MD [address] [place] [address] PCP - General Family Medicine 06/24/23 documented as of this encounter
--- OUTSIDE RECORDS SUMMARY | 2025-01-31 16:02 | XMS_ITS | Encounter Summary ---
Author Organization [facility] Address [address] [place] [address] Care Team Providers Care Sheet Metal Former Name Role Phone Cuco Munoz MD Primary Care Provider [phone] Encounter Details Date Type Department Care Team (Late st Contact Info) Description 10/02/2024 Orders Only [facility] [address] [place] [address] Priscila Landry MA Social History Tobacco [...] 8:10 AM EDT Routine [facility] [address] [place] [address] Eric Holly, [address] [place], [place] [address] documented as of this encounter Procedures Procedure Name Priority Date/Time Associated Diagnosis Comments PAP SMEAR Routine 09/18/2024 12:00 AM EST documented in this encounter Results * Pap Smear (09/18/2024 12:00 AM EST) Swab Cervical swab / Unknown [facility] ORDERABLES Final Re sult EXTERNAL LAB documented in this encounter Visit Diagnoses Not on filedocumented in this encounter Care Teams Sheet Metal Former Relationship Specialty Start Date End Date Cuco Munoz MD [address] [place] [address] PCP - General Family Medicine 06/24/23 documented as of this encounter
[2025-01-31 17:05] VITALS: BP 136/78; PULSE 96
== END 2025-01-31 17:31 | disposition home or self-care (01) ==
LOC: US 15:59 → FBC 16:27
PROVIDERS: Visit Provider Obstetrics & Gynecology
DX: O24.419 Gestational diabetes mellitus in pregnancy, unspecified control (principal); Z3A.37 37 weeks gestation of pregnancy
CPT/HCPCS: 76818

== ENCOUNTER 2025-02-03 10:58 | Outpatient (OUT) | payer MEDICAID, SELFPAY ==
--- OUTSIDE RECORDS SUMMARY | 2025-02-03 11:02 | XMS_ITS | CCD ---
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 Neutrophils/100 WBC (Bld) 76.3 % High 43.0 - 75.0 % [facility] Platelet mean volume (Bld) [Entitic vol] 10 fL 9.5 - 13.[address] [facility] EO # 0.[address] [facility] PLT [address] [facility] RBC 3.[address] [facility] WBC 9 [facility] UA (CLEAN/CATCH) ENGAGEMENT LEAD/ERNESTINA RO IF IND.on 11-16-2024 BILIRUBIN URINE Negative NEGATIVE [facility] BLOOD URINE Negative NEGATIVE [facility] Clarity (U) CLEAR CLEAR [facility] Color (U) LT. YELLOW YELLOW [facility] GLUCOSE URINE UA Negative NEGATIVE mg/dL [facility] Ketones Ql (U) Negative NEGATIVE mg/dL [facility] Leukocyte esterase Test strip Ql (U) Negative NEGATIVE [facility] NITRITE URINE Negative NEGATIVE [facility] pH (U) 6.0 [pH] 5.0 - 9.0 [facility] PROTEIN URINE Negative NEG/TRACE mg/dL [facility] SPECIFIC GRAVITY URINE 1.020 1.005 - 1.025 [facility] URINE MICROSCOPIC INDICATED NO [facility] UROBILINOGEN URINE 0.2 EU/dL 0.2 - 1.0 EU/dL [facility] Urinalysis macro (dipstick) panel (U)on 11-07-2024 Bilirubin, UA Negative Negative - 4(70) +++ mg/dL [facility] Blood, UA Negative Negative - 50 Oscar/mcL [facility] Clarity, UA Clear [facility] Color, UA Yellow [facility] Glucose, UA Negative Negative - 2000(110) ++++ mg/dL [facility] Interpretation and review of laboratory results Normal [facility] Ketones, UA Negative Negative - 160(16) ++++ mg/dL [facility] Leukocytes, UA Negative Negative - 500+++ Mike/mcL [facility] Nitrite, UA Negative Negative - Positive [facility] pH, UA 5.5 5 - 9 [facility] Protein, UA Negative Negative - 1999(20) ++++ mg/dL [facility] Spec Grav, UA 1.01 1 - 1.03 [facility] Urobilinogen, UA 0.2 0.2 - 12 mg/dL [facility] US OB INCOMPLETE ANATOMYon 0 10-27-2024 [place] [address] Ultrasound Report Signed Patient: ABRAM VILLARREAL MR#: [id number] : 1990 Acct:[id number] Age/Sex: 33 / F ADM Date: 10/27/24 Loc: US Attending Dr: Eric Holly D.O. Ordering Physician: Eric Holly D.O. Date of Service: 10/27/24 Procedure(s): US OB incomplete anatomy Accession Number(s): [id number] cc: Eric Holly D.O.; Physician,Non-Staff [place] [id number] Patient Name: ABRAM VILLARREAL MRN: [id number] date: 1990 Sex: F Assigned Patient Location: US Current Patient Location: [place] Accession/Order Number: [id number] Exam Date: 10/27/2024 19:10 Report Date: 10/27/2024 [...] David Chaudhari M.D.10/27/2024 7:11 PM Dictation Location: [place] [address] Electronically authenticated by: [id number] Y Date: 10/27/2024 19:11 Dictated By: David Chaudhari D.O. Signed By: 10/27/241913 DD/ 10 TD/TT: Customer Retention Representative: [facility] Ignacio Marte MD - 10/27/[address] [address] Ultrasound Report Signed Patient: ABRAM VILLARREAL MR#: [id number] : 1990 Acct:[id number] Age/Sex: 33 / F ADM Date: 10/27/24 Loc: US Attending Dr: Eric Holly D.O. Ordering Physician: Eric Holly D.O. Date of Service: 10/27/24 Procedure(s): US OB incomplete anatomy Accession Number(s): [id number] cc: Eric Holly D.O.; Physician,Non-Staff [place] The [address] [address] Patient Name: ABRAM VILLARREAL MRN: [facility]:[id number] date: 1990 Sex: F Assigned Patient Location: US Current Patient Location: [place] Accession/Order Number: [id number] Exam Date: 10/27/2024 19:10 Report Date: 10/27/2024 [...] David Chaudhari M.D.10/27/2024 7:11 PM Dictation Location: [place] [address] Electronically authenticated by: [id number] Y Date: 10/27/2024 19:11 Dictated By: David Chaudhari D.O. Signed By: 10/27/241913 DD/ 10 TD/TT: Customer Retention Representative: [facility] Radiology Study observation (narrative) [facility] US OB INCOMPLETE ANATOMYOrde red By: Radiologist Radiology on 10-27-2024 [facility] Healthcare Work Phone: IGP,APTIMA HPV,AGE GDLNon AGE GDLN ACOG TESTING Note . [facility] Comment on above: TESTS RESULT FLAG U NITS REF RANGE LAB Clinician Provided Cytology Information Source.............Cervix Other.............. No. of containers..01 ThinPrep Vial Age Algo ACOG Alondra... 30 01 FLAG LEGEND: L-Low Normal,H-High Normal,LL-Alert Low,HH-Alert High <-Panic Low,>-Panic High,A-Abnormal,AA-Critical Abnormal Performed at: 01 =G [facility] [address] [address] Lisa Melton MD, HPV APTIMA Positive Abnormal Negative [facility] Comment on above: This nucleic acid am plification test detects fourteen high- risk HPV types (16,18,31,33,35,39,45,51,52,56,58,59,66,68) without differentiation. HPV GENOTYPE 16 Negative Negative [facility] Healthcare HPV GENOTYPE 18,45 Negative Negative [facility] Comment on above: Performed at: =G - [facility] [address] [id number] Clin Tech: Lisa Melton MD, Phone: [phone] Performed at: - [facility], [place] [id number] Clin Tech: Lisa Melton MD, Phone: [phone] IGP, APTIMA HPV, RFX 16/18,45 Note . [facility] Comment on above: TESTS RESULT FLAG UN ITS REF RANGE LAB DIAGNOSIS: 02 NEGATIVE FOR INTRAEPITHELIAL LESION OR MALIGNANCY. Specimen adequacy: 02 Satisfactory for evaluation. Endocervical and/or squamous metaplastic cells (endocervical component) are present. Performed by: Neri Knowles Rehabilitation Aide (ASCP) . 02 Note: Note 02 The [...] High <-Panic Low,>-Panic High,A-Abnormal,AA-Critical Abnormal Performed at: [facility] [address] [place] [address] Lisa Melton MD, Interpretation and review of laboratory results Abnormal [facility] SPATULA-ALONE CERVIX [facility] RECURRENT VAGINITIS (HTRX)on 09-19-2024 ATOPOBIUM VAGINAE 0 [facility] ATOPOBIUM VAGINAE Not detected [facility] BVAB 2,3 (BACTERIAL VAGINOSIS ASSOCIATED BACTERIA 2, 3); MOBILUNCUS SPP 0 [facility] BVAB 2,3 (BACTERIAL VAGINOSIS ASSOCIATED BACTERIA 2, 3); MOBILUNCUS SPP Not detected [facility] KELSEY ALBICANS, PARAPSILOSIS, TROPICALIS 0 [facility] KELSEY ALBICANS, PARAPSILOSIS, TROPICALIS Not detected [facility] KELSEY GLABRATA 0 [facility] KELSEY GLABRATA Not detected [facility] KELSEY KRUSEI 0 [facility] KELSEY KRUSEI Not detected [facility] CHLAMYDIA TRACHOMATIS 0 [facility] CHLAMYDIA TRACHOMATIS Not detected N [facility] GARDNERELLA VAGINALIS 0 [facility] GARDNERELLA VAGINALIS Not detected N [facility] MEGASPHAERA (TYPES 1, 2) 0 [facility] MEGASPHAERA (TYPES 1, 2) Not detected [facility] MYCOPLASMA GENITALIUM 0 [facility] MYCOPLASMA GENITALIUM Not detected N [facility] NEISSERIA GONORRHOEAE 0 [facility] NEISSERIA GONORRHOEAE Not detected N [facility] TRICHOMONAS VAGINALIS 0 [facility] TRICHOMONAS VAGINALIS Not detected N [facility] Urinalysis macro (dipstick) panel (U)on 09-18-2024 Bilirubin, UA Negative Negative - 4(70) +++ mg/dL [facility] Blood, UA Negative Negative - 50 Oscar/mcL [facility] Clarity, UA Clear [facility] Color, UA Yellow [facility] Glucose, UA Negative Negative - 1999(110) ++++ mg/dL [facility] Interpretation and review of laboratory results Normal [facility] Ketones, UA Negative Negative - 160(16) ++++ mg/dL [facility] Leukocytes, UA Negative Negative - 500+++ Mike/mcL [facility] Nitrite, UA Negative Negative - Positive [facility] pH, UA 6.5 5 - 9 [facility] Protein, UA Negative Negative - 1999(20) ++++ mg/dL [facility] Spec Grav, UA 1.025 1 - 1.03 [facility] Urobilinogen, UA 1.0 0.2 - 12 mg/dL [facility] AFP, SERUM, OPEN SPINA BIFID Aon 09-08-2024 AFP MOM 1.72 . [facility] AFP VALUE 54.2 ng/mL . [facility] COMMENT: Comment . [facility] Comment on above: Oksana Blank , Ph.D., [facility] Director References: Available Upon Request. Multiples Of Median Cutoffs For AFP Elevations Grant 2.5 Black 2.8 IDD 2.0 Twins 4.5 Abbreviation Definitions IDD - Insulin Dep Diabetes OSBR - Open Spina Bifida Risk For further inquiries contact [employer] [facility] at [phone]. This test was developed and its performance characteristics determined by [employer]. It has not been cleared or approved by the Food and Drug Administration. Performed at: [facility] [employer] [address] [id number] Clin Tech: Christ Rodas [facility], Phone: [phone] GEST. AGE ON COLLECTION DATE 16.7 . weeks [facility] GESTAT. AGE BASED ON Ultrasound . [facility] Comment on above: 14.4 on 08/21/2024 Recalculations are not recommended when gestational dating by LMP and ultrasound are within 10 days. INSULIN DEP DIABETES No . [facility] INTERPRETATION Comment . [facility] Comment on above: Interpretation: Scre en [...] Customer Services to discuss available options. The [place] recommends amniocentesis be offered to women age 35 and older. [age] [facility] MULTIPLE GESTATION No . [facility] OSBR RISK 1 IN 1551 . [facility] RACE . [facility] RESULTS Report . [facility] TEST RESULTS: Negative . [facility] WEIGHT 187 . lbs [facility] N N ULTRASOUND [id number] 3 14 N 1 187 N N N N N White/ [facility] Urinalysis macro (dipstick) panel (U)on 08-21-2024 Bilirubin, UA Negative Negative - 4(70) +++ mg/dL [facility] Blood, UA Negative Negative - 50 Oscar/mcL [facility] Clarity, UA Clear [facility] Color, UA Yellow [facility] Glucose, UA Negative Negative - 1999(110) ++++ mg/dL [facility] Interpretation and review of laboratory results Normal [facility] Ketones, UA Negative Negative - 160(16) ++++ mg/dL [facility] Leukocytes, UA Negative Negative - 500+++ Mike/mcL [facility] Nitrite, UA Negative Negative - Positive [facility] pH, UA 5.5 5 - 9 [facility] Protein, UA Negative Negative - 1999(20) ++++ mg/dL [facility] Spec Grav, UA 1.015 1 - 1.03 [facility] Urobilinogen, UA 0.2 0.2 - 12 mg/dL [facility] ALL CBC WITH AUTO DIFFon BASOPHILS ABSOLUTE AUTO 0.1 [facility] Basophils/100 WBC (Bld) 0.5 % 0.2 - 2.0 % [facility] Eosinophils/100 WBC (Bld) 1.6 % 0.9 - 7.0 % [facility] Erythrocyte distribution width (RBC) [Ratio] 14 % 11.0 - 15.0 % [facility] Hematocrit (Bld) [Volume fraction] 35.4 % Low 36.0 - 48.0 % [facility] Hemoglobin (Bld) [Mass/Vol] 12.2 g/dL 12.0 - 16.0 g/dL [facility] IMMATURE GRANULOCYTES ABS AUTO 0.05 High [facility] Immature granulocytes/100 WBC (Bld) 0.4 % 0.0 - 0.5 % [facility] Interpretation and review of laboratory results Abnormal [facility] LYMPHOCYTES ABSOLUTE AUTO 1.8 [facility] Lymphocytes/100 WBC (Bld) 14.4 % Low 20.5 - 60.0 % [facility] MCH (RBC) [Entitic mass] 31 pg 26.7 - 34.0 pg [facility] MCHC (RBC) [Mass/Vol] 34.5 g/dL 29.9 - 35.2 g/dL [facility] MCV (RBC) [Entitic vol] 90.1 fL 81.0 - 99.0 fL [facility] MONOCYTES ABSOLUTE AUTO 0.8 [facility] Monocytes/100 WBC (Bld) 5.9 % 1.7 - 12.0 % [facility] NEUTROPHILS ABSOLUTE AUTO 9.8 High [facility] Neutrophils/100 WBC (Bld) 77.2 % High 43.0 - 75.0 % [facility] Platelet mean volume (Bld) [Entitic vol] 10.3 fL 9.5 - 13.5 fL [facility] EO # 0.2 [facility] PLT [address] [facility] RBC 3.[address] [facility] WBC 12.7 High [facility] HCG ( test) Ql (U)o n 07-21-2024 Interpretation and review of laboratory results Abnormal [facility] Preg Test, Ur Positive Negative [facility] Urinalysis macro (dipstick) panel (U)on 07-21-2024 Bilirubin, UA Negative Negative - 4(70) +++ mg/dL [facility] Blood, UA Negative Negative - 50 Oscar/mcL [facility] Clarity, UA Clear [facility] Color, UA Yellow [facility] Glucose, UA Negative Negative - 1999(110) ++++ mg/dL [facility] Interpretation and review of laboratory results Normal [facility] Ketones, UA Negative Negative - 160(16) ++++ mg/dL [facility] Leukocytes, UA Negative Negative - 500+++ Mike/mcL [facility] Nitrite, UA Negative Negative - Positive [facility] pH, UA 6.5 5 - 9 [facility] Protein, UA Negative Negative - 1999(20) ++++ mg/dL [facility] Spec Grav, UA 1.015 1 - 1.03 [facility] Urobilinogen, UA 0.2 0.2 - 12 mg/dL [facility] No Panel InformationOrdered By: Mayte Joiner on 06-08-2024 Quick Strep (POC) [facility] No Panel InformationOrdered By: Ketty Jones on 04-21-2024 Quick Strep (POC) [facility] Quick Strep (POC) [facility] No Panel InformationOrdered By: Chaz Miller on 12-22-2023 Quick Strep (POC) [facility] US PELVISon 08-25-2022 US PELVIS EXAMINATION: US [...] REMA OLIVAS Date: 2022-08-25 07:25 Normal [facility] CHLAMYDIA/GONOCOCCUS JESS (SW AB/URINE/PAPon 08-23-2022 Chlamydia trachomatis, JESS Negative Normal Negative [facility] Comment on above: Performed By: #### C BC #### [facility] [address] [place] [address] Dr. Babar Marks Neisseria gonorrhoeae, JESS Negative Normal Negative [facility] Comment on above: Performed By: #### C BC #### [facility] [address] [place] [address] Dr. Babar Marks VAGINITIS/VAGINOSIS DNA PROB Tam 08-21-2022 Kelsey species Negative Normal Negative [facility] Comment on above: Performed By: #### V AGINT #### [facility] [address] [place] [address] Dr. Babar Marks Gardnerella vaginalis Negative Normal Negative [facility] Comment on above: Performed By: #### V AGINT #### [facility] [address] [place] [address] Dr. Babar Marks Trichomonas vaginalis Negative Normal Negative [facility] Comment on above: Performed By: #### V AGINT #### [facility] [address] [place] [address] Dr. Babar Marks CBC AUTO DIFFon 07-30-2022 BASO # 0.1 103/ul Normal 0.0-0.1 [facility] Comment on above: Performed By: #### C BC #### [facility] [address] [place] [address] Dr. Babar Marks Basophils/100 WBC (Bld) 0.8 % Normal 0.2-2.0 [facility] Comment on above: Performed By: #### C BC #### [facility] [address] [place] [address] Dr. Babar Marks EO # 0.1 103/ul Normal 0.0-0.7 [facility] Comment on above: Performed By: #### C BC #### [facility] [address] [place] [address] Dr. Babar Marks Eosinophils/100 WBC (Bld) 1.4 % Normal 0.9-7.0 [facility] Comment on above: Performed By: #### C BC #### [facility] [address] [place] [address] Dr. Babar Marks Erythrocyte distribution width (RBC) [Ratio] 13.7 % Normal 11.0-15.0 [facility] Comment on above: Performed By: #### C BC #### [facility] [address] [place] [address] Dr. Babar Marks Hematocrit (Bld) [Volume fraction] 36.9 % Normal 36.0-48.0 [facility] Comment on above: Performed By: #### C BC #### [facility] [address] [place] [address] Dr. Babar Marks Hemoglobin (Bld) [Mass/Vol] 12.4 g/dL Normal 12.0-16.0 [facility] Comment on above: Performed By: #### C BC #### [facility] [address] [place] [address] Dr. Babar Marks IG # 0.03 10e3/ul Normal 0.00-0.03 [facility] Comment on above: Performed By: #### C BC #### [facility] [address] [place] [address] Dr. Babar Marks IG % 0.3 % Normal 0.0-0.5 [facility] Comment on above: Performed By: #### C BC #### [facility] [address] [place] [address] Dr. Babar Marks LYMPH # 1.7 103/ul Normal 1.2-3.8 [facility] Comment on above: Performed By: #### C BC #### [facility] [address] [place] [address] Dr. Babar Marks Lymphocytes/100 WBC (Bld) 18.1 % Critically low 20.5-60.0 [facility] Comment on above: Performed By: #### C BC #### [facility] [address] [place] [address] Dr. Babar Marks MANUAL DIFF REQ NO Normal [facility] Comment on above: Performed By: #### C BC #### [facility] [address] [place] [address] Dr. Babar Marks MCH (RBC) [Entitic mass] 29.5 pg Normal 26.7-34.0 [facility] Comment on above: Performed By: #### C BC #### [facility] [address] [place] [address] Dr. Babar Marks MCHC (RBC) [Mass/Vol] 33.6 g/dL Normal 29.9-35.2 [facility] Comment on above: Performed By: #### C BC #### [facility] [address] [place] [address] Dr. Babar Marks MCV (RBC) [Entitic vol] 87.9 fL Normal 81.0-99.0 [facility] Comment on above: Performed By: #### C BC #### [facility] [address] [place] [address] Dr. Babar Marks MONO # 0.6 103/ul Normal 0.3-0.8 [facility] Comment on above: Performed By: #### C BC #### [facility] [address] [place] [address] Dr. Babar Marks Monocytes/100 WBC (Bld) 6.5 % Normal 1.7-12.0 [facility] Comment on above: Performed By: #### C BC #### [facility] [address] [place] [address] [address] Babar Marks NEUT # 6.7 103/ul Critically high 1.4-6.5 [facility] Comment on above: Performed By: #### C BC #### [facility] [address] [place] [address] [address] Babar Marks Neutrophils/100 WBC (Bld) 72.9 % Normal 43.0-75.0 [facility] Comment on above: Performed By: #### C BC #### [facility] [address] [place] [address] [address] Babar Marks Platelet mean volume (Bld) [Entitic vol] 10.1 fL Normal 9.5-13.5 [facility] Comment on above: Performed By: #### C BC #### [facility] [address] [place] [address] Dr. Babar Marks PLT 393 103/ul Normal 150-450 [facility] Comment on above: Performed By: #### C BC #### [facility] [address] [place] [address] Dr. Babar Marks RBC 4.20 106/ul Normal 4.20-5.40 [facility] Comment on above: Performed By: #### C BC #### [facility] [address] [place] [address] Dr. Babar Marks WBC 9.2 103/ul Normal 4.0-11.0 [facility] Comment on above: Performed By: #### C BC #### [facility] [address] [place] [address] Dr. Babar Marks ER URINE PROFILEon 3 Bilirubin Ql (U) Negative Normal NEGATIVE [facility] Comment on above: Performed By: #### E RUR #### [facility] [address] [place] [address] Dr. Babar Marks Clarity (U) CLEAR Normal CLEAR [facility] Comment on above: Performed By: #### E RUR #### [facility] [address] [place] [address] Dr. Babar Marks Color (U) LT. YELLOW Normal YELLOW [facility] Comment on above: Performed By: #### E RUR #### [facility] [address] [place] [address] Dr. Babar VILLAREAL A micrscopic examina tion will be performed if indicated. Normal [facility] Comment on above: Performed By: #### E RUR #### [facility] [address] [place] [address] Dr. Babar Marks Glucose Ql (U) Negative Normal NEGATIVE [facility] Comment on above: Performed By: #### E RUR #### [facility] [address] [place] [address] Dr. Babar Marks Hemoglobin Ql (U) Negative Normal NEGATIVE [facility] Comment on above: Performed By: #### E RUR #### [facility] [address] [place] [address] Dr. Babar Marks Ketones Ql (U) Negative Normal NEGATIVE [facility] Comment on above: Performed By: #### E RUR #### [facility] [address] [place] [address] Dr. Babar Marks LEUKOCYTES Negative Normal NEGATIVE [facility] Comment on above: Performed By: #### E RUR #### [facility] [address] [place] [address] Dr. Babar Marks Nitrite Ql (U) Negative Normal NEGATIVE [facility] Comment on above: Performed By: #### E RUR #### [facility] [address] [place] [address] Dr. Babar Marks pH (U) 6.5 [pH] Normal 5-9 [facility] Comment on above: Performed By: #### E RUR #### [facility] [address] [place] [address] Dr. Babar Marks SPEC GRAVITY 1.015 Normal 1.005-<=1.0 25 [facility] Comment on above: Performed By: #### E RUR #### [facility] [address] [place] [address] Dr. Babar Marks UA PROTEIN Negative Normal NEGATIVE/ TRACE [facility] Comment on above: Performed By: #### E RUR #### [facility] [address] [place] [address] Dr. Babar Marks UR MICRO IND NOT INDICATED Normal [facility] Comment on above: Performed By: #### E RUR #### [facility] [address] [place] [address] Dr. Babar Marks Urobilinogen Qn (U) 0.2 {Courtney'U}/dL Normal 0.2 - 1. 0 [facility] Comment on above: Performed By: #### E RUR #### [facility] [address] [place] [address] Dr. Babar Marks LIPASEon 07-30-2022 Lipase [Catalytic activity/Vol] 141.0 U/L Normal 73.0-393.0 [facility] Comment on above: Performed By: #### L IPA, CMP #### [facility] [address] [place] [address] Dr. Babar Marks PREG HCG QUALon 07-30-2022 , QUAL Negative Normal NEGATIVE [facility] Comment on above: Performed By: #### C BC #### [facility] [address] [place] [address] Dr. Babar Marks PROF 14(COMP METB)on 023 Albumin [Mass/Vol] 3.3 g/dL Critically low 3.4-5.0 [facility] Comment on above: Performed By: #### C BC #### [facility] [address] [place] [address] Dr. Babar Marks Albumin/Globulin [Mass ratio] 0.8 {ratio} Normal [facility] Comment on above: Performed By: #### C BC #### [facility] [address] [place] [address] Dr. Babar Marks ALP [Catalytic activity/Vol] 44 U/L Critically low 46-116 [facility] Comment on above: Performed By: #### C BC #### [facility] [address] [place] [address] Dr. Babar Marks ALT [Catalytic activity/Vol] 17 U/L Normal 14-59 [facility] Comment on above: Performed By: #### C BC #### [facility] [address] [address] [address] Babar Marks Anion gap [Moles/Vol] 11.0 mmol/L Normal [facility] Comment on above: Performed By: #### C BC #### [facility] [address] [address] [address] Babar Marks AST [Catalytic activity/Vol] 13 U/L Critically low 15-37 [facility] Comment on above: Performed By: #### C BC #### [facility] [address] [place] [address] Dr. Babar Marks Bilirubin [Mass/Vol] 0.3 mg/dL Normal 0.2-1.0 [facility] Comment on above: Performed By: #### C BC #### [facility] [address] [place] [address] Dr. Babar Marks Calcium [Mass/Vol] 8.6 mg/dL Normal 8.5-10.1 [facility] Comment on above: Performed By: #### C BC #### [facility] [address] [place] [address] Dr. Babar Marks Chloride [Moles/Vol] 107 mmol/L Normal 98-107 [facility] Comment on above: Performed By: #### C BC #### [facility] [address] [place] [address] Dr. Babar Marks CO2 [Moles/Vol] 29.5 mmol/L Normal 21.0-32.0 [facility] Comment on above: Performed By: #### C BC #### [facility] [address] [place] [address] Dr. Babar Marks Creatinine [Mass/Vol] 0.71 mg/dL Normal 0.55-1.02 [facility] Comment on above: Performed By: #### C BC #### [facility] [address] [place] [address] Dr. Babar Marks EGFR-AF GERMAN >60 Normal >=60 [facility] Comment on above: Performed By: #### C BC #### [facility] [address] [address] [address] Babar Marks EGFR-NON AF GERMAN >60 Normal >=60 [facility] Comment on above: Performed By: #### C BC #### [facility] [address] [address] [address] Babar Marks Globulin (S) [Mass/Vol] 4.0 g/dL Normal [facility] Comment on above: Performed By: #### C BC #### [facility] [address] [address] [address] Babar Marks Glucose [Mass/Vol] 81 mg/dL Normal 74-106 [facility] Comment on above: Performed By: #### C BC #### [facility] [address] [address] [address] aBbar Marks Potassium [Moles/Vol] 3.5 mmol/L Normal 3.5-5.1 [facility] Comment on above: Performed By: #### C BC #### [facility] [address] [address] [address] Babar Marks Protein [Mass/Vol] 7.3 g/dL Normal 6.4-8.2 [facility] Comment on above: Performed By: #### C BC #### [facility] [address] [address] [address] Babar Marks Sodium [Moles/Vol] 144 mmol/L Normal 136-145 [facility] Comment on above: Performed By: #### C BC #### [facility] [address] [address] [address] Babar Marks Urea nitrogen [Mass/Vol] 14.0 mg/dL Normal 7.0-18.0 [facility] Comment on above: Performed By: #### C BC #### [facility] [address] [address] [address] Babar Marks Urea nitrogen/Creatinine [Mass ratio] 19.7 mg/mg Normal [facility] Comment on above: Performed By: #### C BC #### [facility] [address] [address] [address] Babar Marks XR ABD FLAT UP_PA [...] by: YESENIA ARRIOLA Date: 2022-07-30 18:11 Normal [facility] PAP ACOG PANEL 2: 30 to 65on 03-18-2022 . . Normal [facility] Comment on above: Result Comment: Perf ormed at: WB Performed By: #### [id number] #### [facility] [address] [place] [address] Dr. Babar Marks Age Gdln ACOG Testing 30-65 Normal [facility] Comment on above: Performed By: #### [id number] #### [facility] [address] [address] [address] Babar Marks DIAGNOSIS: Comment Normal [facility] Comment on above: Result Comment: NEGA TIVE FOR INTRAEPITHELIAL LESION OR MALIGNANCY. Performed at: WB Performed By: #### [id number] #### [facility] [address] [address] [address] Babar Marks HPV Aptima Positive Abnormal Negative [facility] Comment on above: Result Comment: This nucleic acid amplification test detects fourteen high-risk HPV types (16,18,31,33,35,39,45,51,52,56,58,59,66,68) without differentiation. Performed at: =G Performed By: #### [id number] #### [facility] [address] [address] [address] Babar Marks HPV Genotype 16 Negative Normal Negative [facility] Comment on above: Result Comment: Perf ormed at: =G Performed By: #### [id number] #### [facility] [address] [address] [address] Babar Marks HPV Genotype 18,45 Negative Normal Negative [facility] Comment on above: Result Comment: Perf ormed at: =G Performed By: #### [id number] #### [facility] [address] [place] [address] Dr. Babar Marks Methodology: Comment Normal [facility] Comment on above: Result Comment: This liquid based ThinPrep(R) pap test was screened with the use of an image guided system. Performed at: WB Performed By: #### 4 [id number] #### [facility] [address] [place] [address] Dr. Babar Marks Note: Comment Normal [facility] Comment on above: Result Comment: The Pap smear is a screening test designed to aid in the detection of premalignant and malignant conditions of the uterine cervix. It is not a diagnostic procedure and should not be used as the sole means of detecting cervical cancer. Both false-positive and false-negative reports do occur. . Performed at: WB Performed By: #### [id number] #### [facility] [address] [place] [address] Dr. Babar Marks Performed by: Comment Normal [facility] Comment on above: Result Comment: Marry Billy, Rehabilitation Aide (ASCP) Performed at: WB Performed By: #### 4 [id number] #### [facility] [address] [place] [address] Dr. Babar Marks Specimen adequacy: Comment Normal [facility] Comment on above: Result Comment: Sati sfactory for evaluation. Endocervical and/or squamous metaplastic cells (endocervical component) are present. Performed at: WB Performed By: #### [id number] #### [facility] [address] [address] [address] Babar Marks CHLAMYDIA/GONOCOCCUS JESS (SW AB/URINE/PAPon 03-14-2022 Chlamydia trachomatis, JESS Negative Normal Negative [facility] Comment on above: Performed By: #### C T/NGNA #### [facility] [address] [address] [address] Babar Marks Neisseria gonorrhoeae, JESS Negative Normal Negative [facility] Comment on above: Performed By: #### C T/NGNA #### [facility] [address] [address] [address] Babar Marks VAGINITIS/VAGINOSIS DNA PROB Tam 03-14-2022 Kelsey species Negative Normal Negative [facility] Comment on above: Performed By: #### V AGINT #### [facility] [address] [place] [address] Dr. Babar Marks Gardnerella vaginalis Negative Normal Negative [facility] Comment on above: Performed By: #### V AGINT #### [facility] [address] [place] [address] Dr. Babar Marks Trichomonas vaginalis Negative Normal Negative [facility] Comment on above: Performed By: #### V AGINT #### [facility] [address] [place] [address] Dr. Babar Marks XR CHEST 2 Von 11-23-2021 XR CHEST 2 V EXAM: XR CHEST 2 V COMPARISON: 02/06/2017 CLINICAL INDICATION: Cough. FINDINGS: The cardiomediastinal silhouette is within normal limits. No focal consolidation. No pleural effusion. No pneumothorax. IMPRESSION: No radiographic evidence of acute cardiopulmonary abnormality. Electronically authenticated by: DANIELA ZENG Date: 2021-11-23 17:05 Normal [facility] Discharge Summaryon 02-08-20 17 HIM IP Note OR Molder Fitting Normal [facility] Drug Scr, Abuse, Uron 2016 Amphetamine(s),Ur Negative Normal NEG [facility] Comment on above: Result Comment: (Pos itive cutoff 1000 ng/mL) Performed By: #### U AMIC, MARLEEN ####[facility] [address] [place] [address] Barbiturate(s),Ur Negative Normal NEG [facility] Comment on above: Result Comment: (Pos itive cutoff 200 ng/mL) Performed By: #### U AMIC, MARLEEN ####[address] [address] Base excess Negative Normal NEG [facility] Comment on above: Result Comment: (Pos itive cutoff 300 ng/mL) Performed By: #### U AMIC, MARLEEN ####[address] [address] Benzodiazepine(s) Negative Normal NEG [facility] Comment on above: Result Comment: (Pos itive cutoff 200 ng/mL) Performed By: #### U AMIC, MARLEEN ####[facility] [address] [address] Cannabinoid(s),Ur Negative Normal NEG [facility] Comment on above: Result Comment: (Pos itive cutoff 50 ng/mL) Performed By: #### U AMIC, MARLEEN ####[address] [address] Interpretive Info Assay provides medic al screening only. The absence of expected drug(s) and/or Normal [facility] Comment on above: Result Comment: meta bolite(s) may indicate diluted or adulterated urine, limitations of testing or timing of collection.Testing for legal purposes should be confirmed by another method. To request confirmation of test result, please call the lab within 7 days of sample submission.[facility] [address] [place] [id number] Performed By: #### U AMIC, MARLEEN ####[address] [address] Opiate(s), Ur Positive Abnormal NEG [facility] Comment on above: Result Comment: (Pos itive cutoff 300 ng/mL) Performed By: #### U AMIC, MARLEEN ####[facility] [address] [address] Oxycodone, Urine Negative Normal NEG [facility] Comment on above: Result Comment: (Pos itive cutoff 100 ng/mL) Performed By: #### U AMIC, MARLEEN ####[facility] [address] [place] [address] Phencyclidine, Ur Negative Normal NEG [facility] Comment on above: Result Comment: (Pos itive cutoff 25 ng/mL) Performed By: #### U AMIC, MARLEEN ####[facility] [address] [address] Urine, methadone presence Negative Normal NEG [facility] Comment on above: Result Comment: (Pos itive cutoff 300 ng/mL) Performed By: #### U AMIC, MARLEEN ####[facility] [address] [address] Buprenorphrine, Ur NOT REPORTED Normal NEG [facility] Comment on above: Performed By: #### U AMIC, MARLEEN ####[facility] [address] [address] MDMA, Urine NOT REPORTED Normal NEG [facility] Comment on above: Performed By: #### U AMIC, MARLEEN ####[facility] [address] [place] [address] Methamphetamine, Ur NOT REPORTED Normal NEG [facility] Comment on above: Performed By: #### U AMIC, MARLEEN ####[facility] [address] [place] [address] Propoxyphene,Urine NOT REPORTED Normal NEG [facility] Comment on above: Performed By: #### U AMIC, MARLEEN ####[facility] [address] [place] [address] Urine, tricyclic antidepressants NOT REPORTED Normal NEG [facility] Comment on above: Performed By: #### U RADHA STODDARDU ####[address] [address] ED Noteon 02-07-2017 HIM IP Note OR Molder Fitting Normal [facility] HIM IP Note OR Molder Fitting Normal [facility] ED Provider Noteon 7 HIM IP Note OR Molder Fitting Normal [facility] Ethanol Alcoholon 02-07-2017 Ethanol mg/dL Normal <10 [facility] Comment on above: Performed By: #### A LCB ####[address] [address] Ethanol percent <0.010 Normal [facility] Comment on above: Result Comment: [facility] resmio [address] [place] [address] Performed By: #### A LCB ####[address] [address] History and Physicalon 02-07 HIM IP Note OR Molder Fitting Normal [facility] UA w reflex C&Son 02-07-2017 Reflex Culture? URINE CULTURE REFLEXED Normal [facility] Comment on above: Performed By: #### P T/INR, PTT ####[address] [place] [address] Urine, crystals in sediment NONE SEEN Normal NONE SEEN [facility] Comment on above: Performed By: #### P T/INR, PTT ####[facility] [place] [address] Urine, bacteria in sediment Negative Normal [facility] Comment on above: Performed By: #### P T/INR, PTT ####[address] [place] [address] Urine, mucus presence in sediment Negative Normal NEGATIVE [facility] Comment on above: Performed By: #### P T/INR, PTT ####[address] [place] [address] Urine, casts in sediment NONE SEEN Normal NONE SEEN [facility] Comment on above: Performed By: #### P T/INR, PTT ####[address] [place] [address] Urine, epithelial cells in sediment Negative Normal NEGATIVE [facility] Comment on above: Performed By: #### P T/INR, PTT ####[address] [place] [address] Erythrocytes (RBC) 0-4/HPF Normal NONE SEEN [facility] Comment on above: Performed By: #### P T/INR, PTT ####[address] [place] [address] WBC (Leukocytes) NONE SEEN Normal NONE SEEN [facility] Comment on above: Performed By: #### P T/INR, PTT ####[address] [place] [address] Urine, leukocyte esterase presence Negative Normal NEGATIVE [facility] Comment on above: Performed By: #### P T/INR, PTT ####[address] [address] Urine, nitrite presence Negative Normal NEGATIVE [facility] Comment on above: Performed By: #### P T/INR, PTT ####[address] [place] [address] Urobilinogen, Dipstick 0.2 Normal 0.2 - 1.0 [facility] Comment on above: Performed By: #### P T/INR, PTT ####[address] [place] [address] Protein, Qual Negative Normal NEGATIVE [facility] Comment on above: Performed By: #### P T/INR, PTT ####[address] [place] [address] Urine, pH 7.0 [pH] Normal 5.0 - 9.0 [facility] Comment on above: Performed By: #### P T/INR, PTT ####[address] [place] [address] Blood, Dipstick TRACE Abnormal NEGATIVE [facility] Comment on above: Performed By: #### P T/INR, PTT ####[address] [place] [address] Urine, specific gravity 1.015 Normal 1.005 - 1.030 [facility] Comment on above: Performed By: #### P T/INR, PTT ####[address] [place] [address] Ketone, Dipstick Negative Normal NEGATIVE [facility] Comment on above: Performed By: #### P T/INR, PTT ####[address] [place] [address] Bilirubin (direct) Negative Normal NEGATIVE [facility] Comment on above: Performed By: #### P T/INR, PTT ####[address] [place] [address] Glucose mass conc Negative Normal NEGATIVE [facility] Comment on above: Performed By: #### P T/INR, PTT ####[address] [place] [address] Urine, character CLEAR Normal CLEAR [facility] Comment on above: Performed By: #### P T/INR, PTT ####[address] [place] [address] Urine, color YELLOW Normal [facility] Comment on above: Performed By: #### P T/INR, PTT ####[address] [place] [address] Urinalysis w/ Microon 2016 ----- Normal [facility] Comment on above: Performed By: #### U AMIC, MARLEEN ####[address] [place] [address] Acetaminophen mass conc Negative Normal NEG [facility] Comment on above: Performed By: #### U AMIC, MARLEEN ####[address] [address] Bilirubin (direct) Negative Normal NEG [facility] Comment on above: Performed By: #### U AMIC, MARLEEN ####[facility] [address] [place] [address] Hemoglobin mass conc (Bld) LARGE Abnormal NEG [facility] Comment on above: Performed By: #### U AMIC, MARLEEN ####[facility] [address] [place] [address] Nitrite,Ur Negative Normal NEG [facility] Comment on above: Performed By: #### U AMIC, MARLEEN ####[facility] [address] [place] [address] Turbidity CLEAR Normal CLEAR [facility] Comment on above: Performed By: #### U AMIC, MARLEEN ####[facility] [address] [place] [address] Urine WBC's 0 TO 2 Normal 0-5 [facility] Comment on above: Performed By: #### U AMIC, MARLEEN ####[address] [place] [address] Urine, casts in sediment 0 TO 2 HYALINE Normal 0-8 [facility] Comment on above: Result Comment: Refe rence range defined for non-centrifuged specimen. Performed By: #### U AMIC, MARLEEN ####[facility] [address] [place] [address] Urine, color YELLOW Normal YEL [facility] Comment on above: Performed By: #### U AMIC, MARLEEN ####[facility] [address] [place] [address] Urine, epithelial cells in sediment 0 TO 2 Normal 0-5 [facility] Comment on above: Result Comment: [facility] resmio [address] [place] [address] Performed By: #### U AMIC, MARLEEN ####[address] [address] Urine, erythrocytes 2 TO 5 Normal 0-4 [facility] Comment on above: Result Comment: Refe rence range defined for non-centrifuged specimen. Performed By: #### U AMIC, MARLEEN ####[address] [address] Urine, glucose presence Negative Normal NEG [facility] Comment on above: Performed By: #### U AMIC, MARLEEN ####[facility] [address] [place] [address] Urine, leukocyte esterase presence Negative Normal NEG [facility] Comment on above: Performed By: #### U AMIC, MARLEEN ####[address] [address] Urine, pH 6.0 [pH] Normal 5.0-8.0 [facility] Comment on above: Performed By: #### U AMIC, MARLEEN ####[facility] [address] Urine, protein presence Negative Normal NEG [facility] Comment on above: Performed By: #### U AMIC, MARLEEN ####[address] [address] Urine, specific gravity 1.013 Normal 1.005-1.030 [facility] Comment on above: Performed By: #### U AMIC, MARLEEN ####[address] [address] Urobilinogen,Ur Normal Normal NORM [facility] Comment on above: Performed By: #### U AMIC, MARLEEN ####[address] [address] Epithelial, Renal NOT REPORTED Normal 0 [facility] Comment on above: Performed By: #### U AMIC, MARLEEN ####[address] [address] Mucus Strands NOT REPORTED Normal NONE [facility] Comment on above: Performed By: #### U AMIC, MARLEEN ####[address] [address] Other Observations NOT REPORTED Normal NREQ [facility] Comment on above: Performed By: #### U AMIC, MARLEEN ####[address] [address] Trichomonas NOT REPORTED Normal NONE [facility] Comment on above: Performed By: #### U AMIC, MARLEEN ####[address] [address] Urine, amorphous sediment presence in sediment NOT REPORTED Normal NONE [facility] Comment on above: Performed By: #### U AMIC, MARLEEN ####[address] [address] Urine, bacteria in sediment NOT REPORTED Normal NONE [facility] Comment on above: Performed By: #### U AMIC, MARLEEN ####[address] [place], [place] [address] Urine, crystals in sediment NOT REPORTED Normal NONE [facility] Comment on above: Performed By: #### U AMIC, MARLEEN ####[address] [place], [place] [address] Urine, yeast presence in sediment NOT REPORTED Normal NONE [facility] Comment on above: Performed By: #### U AMIC, MARLEEN ####[address] [place], [place] [id number] XR CHEST PA OR AP (1 VIEW)on [...] injury.Report electronically signed by: Dr. Chilo Fernandez [facility] XR SHOULDER RTon 02-07-2017 XR SHOULDER [...] electronically signed by: Dr. Chilo Fernandez Normal [facility] APTTon 02-06-2017 aPTT 29.1 s Normal 23.0 - 37.0 [facility] Comment on above: Performed By: #### P T/INR, PTT ####[address] [place], [place] [address] Basic Metabolic Panelon 01-23 eGFR (non-black) 108.65 Normal [facility] Comment on above: Result Comment: eGFR Interpretation:Normal: Equal to or greater than 60 mL/min/1.73 meters squaredChronic Kidney Disease: Less than 60 mL/min/1.73 meters squaredKidney Failure: Less than 15 mL/min/1.73 meters squared Performed By: #### B MP, LIVER PROFILE ####[address] [facility] Center[facility]rice [place], [place] [address] eGFR (non-black) 114.39 Normal [facility] Comment on above: Result Comment: eGFR Interpretation:Normal: Equal to or greater than 60 mL/min/1.73 meters squaredChronic Kidney Disease: Less than 60 mL/min/1.73 meters squaredKidney Failure: Less than 15 mL/min/1.73 meters squared Performed By: #### B MP, LIVER PROFILE ####[address] [place] [address] eGFR (non-black) 108.1 Normal [facility] Comment on above: Result Comment: eGFR Interpretation:Normal: Equal to or greater than 60 mL/min/1.73 meters squaredChronic Kidney Disease: Less than 60 mL/min/1.73 meters squaredKidney Failure: Less than 15 mL/min/1.73 meters squared Performed By: #### B MP, LIVER PROFILE ####[address] [place] [address] eGFR (non-black) 81.88 Normal [facility] Comment on above: Result Comment: eGFR Interpretation:Normal: Equal to or greater than 60 mL/min/1.73 meters squaredChronic Kidney Disease: Less than 60 mL/min/1.73 meters squaredKidney Failure: Less than 15 mL/min/1.73 meters squared Performed By: #### B MP, LIVER PROFILE ####[place] [address] [place] [address] eGFR (non-black) 125.60 Normal [facility] Comment on above: Performed By: #### B MP, LIVER PROFILE ####[place] [address] [place] [address] eGFR (non-black) 132.24 Normal [facility] Comment on above: Performed By: #### B MP, LIVER PROFILE ####[place] [address] [place] [address] eGFR (non-black) 124.64 Normal [facility] Comment on above: Performed By: #### B MP, LIVER PROFILE ####[place] [address] [place] [address] eGFR (non-black) 94.39 Normal [facility] Comment on above: Performed By: #### B MP, LIVER PROFILE ####[place] [address] [place] [address] Age 26 year(s) Normal [facility] Comment on above: Performed By: #### B MP, LIVER PROFILE ####[place] [address] [place] [address] Calcium 10.1 mg/dL Normal 8.4 - 10.2 [facility] Comment on above: Performed By: #### B MP, LIVER PROFILE ####[place] [address] [place] [address] Chloride 103 mmol/L Normal 98 - 107 [facility] Comment on above: Performed By: #### B MP, LIVER PROFILE ####[place] [address] [place] [address] CO2 25 mmol/L Normal 22 - 32 [facility] Comment on above: Performed By: #### B MP, LIVER PROFILE ####[place] [address] [place] [address] Creatinine 0.96 mg/dL Normal 0.52 - 1.04 [facility] Comment on above: Performed By: #### B MP, LIVER PROFILE ####[place] [address] [place] [address] Glucose mass conc 126 mg/dL High 65 - 100 [facility] Comment on above: Performed By: #### B MP, LIVER PROFILE ####[place] [address] [place] [address] Potassium molar conc 3.9 mmol/L Normal 3.6 - 5.0 [facility] Comment on above: Performed By: #### B MP, LIVER PROFILE ####[place] [id number] [place] [address] Sodium 139 mmol/L Normal 135 - 145 [facility] Comment on above: Performed By: #### B MP, LIVER PROFILE ####[place] [address] [place] [address] Urea nitrogen 20 mg/dL High 7 - 17 [facility] Comment on above: Performed By: #### B MP, LIVER PROFILE ####[place] [address] [place] [address] CBC W Auto Differentialon Abs Neut # 9.0 10 X 3/mm High 1.8 - 7.7 [facility] Comment on above: Performed By: #### C BC Auto Diff ####[place] [address] [place] [address] Basophils/100 WBC Auto (Bld) 1 % High 0 - 1 [facility] Comment on above: Performed By: #### C BC Auto Diff ####[place] [id number] [place] [address] Eosinophils 0.1 10 X 3/mm Normal 0.0 - 0.5 [facility] Comment on above: Performed By: #### C BC Auto Diff ####[place] [address] [place] [address] Eosinophils/100 leukocytes 1 % Normal 0 - 5 [facility] Comment on above: Performed By: #### C BC Auto Diff ####[place] [address] [place] [address] Erythrocyte distribution width Auto Ratio (RBC) 15.1 % High 11.5 - 14.5 [facility] Comment on above: Performed By: #### C BC Auto Diff ####[place] [address] [place] [address] Erythrocytes (RBC) 4.28 10 X 6/mm Normal 4.20 - 5.40 [facility] Comment on above: Performed By: #### C BC Auto Diff ####[place] [address] [place] [address] Hematocrit (HCT) 36.3 % Normal 36.0 - 47.0 [facility] Comment on above: Performed By: #### C BC Auto Diff ####[place] [address] [place] [address] Hemoglobin mass conc (Bld) 12.4 g/dL Normal 12.0 - 16.0 [facility] Comment on above: Performed By: #### C BC Auto Diff ####[place] [address] [place] [address] Lymphocytes 2.3 10 X 3/mm Normal 1.0 - 4.0 [facility] Comment on above: Performed By: #### C BC Auto Diff ####[place] [address] [place] [address] Lymphocytes/100 leukocytes 19 % Low 20 - 40 [facility] Comment on above: Performed By: #### C BC Auto Diff ####[place] [address] [place] [address] MCH 29.0 pg Normal 27.0 - 35.0 [facility] Comment on above: Performed By: #### C BC Auto Diff ####[place] [address] [place] [address] MCHC mass conc (RBC) 34.2 g/dL Normal 32.0 - 36.0 [facility] Comment on above: Performed By: #### C BC Auto Diff ####[place] [address] [place] [address] MCV 84.9 fL Normal 80.0 - 100.0 [facility] Comment on above: Performed By: #### C BC Auto Diff ####[place] [address] [place] [address] Monocytes/100 leukocytes 6 % Normal 1 - 15 [facility] Comment on above: Performed By: #### C BC Auto Diff ####[place] [address] [place] [address] Neutrophils/100 WBC Auto (Bld) 74 % High 50 - 70 [facility] Comment on above: Performed By: #### C BC Auto Diff ####[place] [address] [place] [address] Platelet mean volume (PMV) 8.0 fL Normal 7.5 - 11.5 [facility] Comment on above: Performed By: #### C BC Auto Diff ####[place] [address] [place] [address] Platelets 454 uLx10 High 150 - 450 [facility] Comment on above: Performed By: #### C BC Auto Diff ####[place] [address] [place] [address] WBC (Leukocytes) 12.2 10 X 3/mm High 3.7 - 11.0 [facility] Comment on above: Performed By: #### C BC Auto Diff ####[place] [address] [place] [address] CT BRAIN WOon 02-06-2017 Thyroid stimulating hormone [...] effectReport electronically signed by: Dr. Zaire Babcock [facility] CT CERVICAL SPINE WOon 02-06 CT [...] indicated.Report electronically signed by: Dr. Mahamed King [facility] CT SINUS/FACIAL WOon 017 CT SINUS/FACIAL [...] electronically signed by: Dr. Hal Ayoub Normal [facility] Hepatic Function Panelon Alanine aminotransferase (ALT) 30 U/L Normal 7 - 52 [facility] Comment on above: Performed By: #### B MP, LIVER PROFILE ####[place] [address] [place] [address] Albumin 3.8 g/dL Normal 3.5 - 5.0 [facility] Comment on above: Performed By: #### B MP, LIVER PROFILE ####[place] [address] [place] [address] Alkaline phosphatase (ALP) 63 U/L Normal 38 - 126 [facility] Comment on above: Performed By: #### B MP, LIVER PROFILE ####[place] [address] [place] [address] Aspartate aminotransferase (AST) 22 U/L Normal 14 - 36 [facility] Comment on above: Performed By: #### B MP, LIVER PROFILE ####[place] [address] [place] [address] Bilirubin (direct) 0.0 mg/dL Normal 0.0 - 0.2 [facility] Comment on above: Performed By: #### B MP, LIVER PROFILE ####[place] [address] [place] [address] Bilirubin (total) 0.8 mg/dL Normal 0.2 - 1.3 [facility] Comment on above: Performed By: #### B MP, LIVER PROFILE ####[place] [address] [place] [address] Protein 6.9 g/dL Normal 6.3 - 8.2 [facility] Comment on above: Performed By: #### B MP, LIVER PROFILE ####[address] [place] [address] PT/INRon 02-06-2017 INR Coag RelTime (Bld) See Comments Normal [facility] Comment on above: Result Comment: [...] 2.5-3.5 Performed By: #### P T/INR, PTT ####[address] [place] [address] INR Coag RelTime (PPP) 0.94 Normal 0.90 - 1.10 [facility] Comment on above: Performed By: #### P T/INR, PTT ####[address] [place] [address] Prothrombin time (PT) Coag time (PPP) 12.6 s Normal [facility] Comment on above: Performed By: #### P T/INR, PTT ####[address] [place] [address] Troponin I, Extra Sensitiveo n 02-06-2017 Troponin I.cardiac mass conc ng/mL Normal 0.000 - 0.034 [facility] Comment on above: Result Comment: Limi t of Detection: <0.012 ng/mLAt Risk of Myocardial Damage: 0.012-0.034 ng/mLProbable Myocardial Damage: >0.034 ng/mL Performed By: #### T ROPONIN I ####[facility] [place], [place] [address] hCG, Qualitative-Serumon Internal Control ACCEPTABLE Normal [facility] Comment on above: Performed By: #### H CG,QUAL SERUM ####[place] [place], [place] [id number] hCG, Qualitative-Serum Negative Normal NEGATIVE [facility] Comment on above: Performed By: #### H CG,QUAL SERUM ####[place] [id number] [place], [place] [id number] Vital Signs Date Time Vital Sign Value Performing Clinician Facility 01-29-2025 10:01-0400 Body mass index (BMI) [Ratio] 34.63 kg/m2 Eric Elayne DO Work Phone: [facility] 01-29-2025 10:01-0400 Body weight 94.4 kg Eric Elayne DO Work Phone: [facility] 01-29-2025 10:01-0400 Diastolic blood pressure 70 mm[Hg] Eric Elayne DO Work Phone: [facility] 01-29-2025 10:01-0400 Systolic blood pressure 110 mm[Hg] Eric Elayne DO Work Phone: [facility] 01-22-2025 14:02-0400 Body mass index (BMI) [Ratio] 34.58 kg/m2 Eric Elayne DO Work Phone: [facility] 01-22-2025 14:02-0400 Body weight 94.26 kg Eric Elayne DO Work Phone: [facility] 01-22-2025 14:02-0400 Diastolic blood pressure 70 mm[Hg] Eric Elayne DO Work Phone: [facility] 01-22-2025 14:02-0400 Systolic blood pressure 116 mm[Hg] Eric Elayne DO Work Phone: [facility] 01-09-2025 13:45-0400 Body mass index (BMI) [Ratio] 34.11 kg/m2 Eric Elayne DO Work Phone: [facility] 01-09-2025 13:45-0400 Body weight 92.99 kg Eric Elayne DO Work Phone: [facility] 01-09-2025 13:45-0400 Diastolic blood pressure 78 mm[Hg] Eric Elayne DO Work Phone: [facility] 01-09-2025 13:45-0400 Systolic blood pressure 118 mm[Hg] Eric Elayne DO Work Phone: [facility] 12-25-2024 14:28-0400 Body mass index (BMI) [Ratio] 33.91 kg/m2 Eric Elayne DO Work Phone: [facility] 12-25-2024 14:28-0400 Body weight 92.42 kg Eric Elayne DO Work Phone: [facility] 12-25-2024 14:28-0400 Diastolic blood pressure 80 mm[Hg] Eric Elayne DO Work Phone: [facility] 12-25-2024 14:28-0400 Systolic blood pressure 110 mm[Hg] Eric Elayne DO Work Phone: [facility] 12-13-2024 14:59-0400 Body mass index (BMI) [Ratio] 34.78 kg/m2 Eric Elayne DO Work Phone: [facility] 12-13-2024 14:59-0400 Body weight 94.8 kg Eric Elayne DO Work Phone: [facility] 12-13-2024 14:59-0400 Diastolic blood pressure 78 mm[Hg] Erci Elayne DO Work Phone: [facility] 12-13-2024 14:59-0400 Systolic blood pressure 120 mm[Hg] Eric Elayne DO Work Phone: [facility] 11-28-2024 14:25-0400 Body mass index (BMI) [Ratio] 34.61 kg/m2 Eric Elayne DO Work Phone: [facility] 11-28-2024 14:25-0400 Body weight 94.35 kg Eric Elayne DO Work Phone: [facility] 11-28-2024 14:25-0400 Diastolic blood pressure 76 mm[Hg] Eric Elayne DO Work Phone: [facility] 11-28-2024 14:25-0400 Systolic blood pressure 120 mm[Hg] Eric Elayne DO Work Phone: [facility] 11-07-2024 13:37-0400 Body mass index (BMI) [Ratio] 35.11 kg/m2 Eric Elayne DO Work Phone: [facility] 11-07-2024 13:37-0400 Body weight 95.71 kg Eric Elayne DO Work Phone: [facility] 11-07-2024 13:37-0400 Diastolic blood pressure 72 mm[Hg] Eric Elayne DO Work Phone: [facility] 11-07-2024 13:37-0400 Systolic blood pressure 122 mm[Hg] Eric Elayne DO Work Phone: [facility] 09-18-2024 13:47-0500 Body mass index (BMI) [Ratio] 31.92 kg/m2 Loraine OLIVO Work Phone: [facility] 09-18-2024 13:47-0500 Body weight 87 kg Loraine OLIVO Work Phone: [facility] 09-18-2024 13:47-0500 Diastolic blood pressure 76 mm[Hg] Loraine OLIVO Work Phone: [facility] 09-18-2024 13:47-0500 Systolic blood pressure 116 mm[Hg] Loraine OLIVO Work Phone: [facility] 09-08-2024 15:52-0500 Body height 165.1 cm [facility] 09-08-2024 15:52-0500 Body mass index (BMI) [Ratio] 58.6 kg/m2 [facility] 09-08-2024 15:52-0500 Body temperature 98.9 [degF] [facility] 09-08-2024 15:52-0500 Body weight 160 kg [facility] 09-08-2024 15:52-0500 Diastolic blood pressure 78 mm[Hg] [facility] 09-08-2024 15:52-0500 Heart rate 105 /min [facility] 09-08-2024 15:52-0500 Respiratory rate 18 /min [facility] 09-08-2024 15:52-0500 SaO2% (BldA) [Mass fraction] 97 % [facility] 09-08-2024 15:52-0500 Systolic blood pressure 120 mm[Hg] [facility] 08-21-2024 13:18-0500 Body mass index (BMI) [Ratio] 31.12 kg/m2 [employer] DO Work Phone: [facility] 08-21-2024 13:18-0500 Body weight 84.82 kg Eric Elayne DO Work Phone: [facility] 08-21-2024 13:18-0500 Diastolic blood pressure 70 mm[Hg] Eric Elayne DO Work Phone: [facility] 08-21-2024 13:18-0500 Systolic blood pressure 120 mm[Hg] [employer] DO Work Phone: [facility] 07-21-2024 11:10-0500 Body mass index (BMI) [Ratio] 29.45 kg/m2 [facility] 07-21-2024 11:10-0500 Body weight 80.29 kg [facility] 07-21-2024 11:10-0500 Diastolic blood pressure 76 mm[Hg] [facility] 07-21-2024 11:10-0500 Systolic blood pressure 124 mm[Hg] [facility] 06-08-2024 10:32-0500 Body height 165.1 cm [facility] 06-08-2024 10:32-0500 Body mass index (BMI) [Ratio] 29.1 kg/m2 [facility] 06-08-2024 10:32-0500 Body temperature 97.5 [degF] [facility] 06-08-2024 10:32-0500 Body weight 79.37 kg [facility] 06-08-2024 10:32-0500 Diastolic blood pressure 89 mm[Hg] [facility] 06-08-2024 10:32-0500 Heart rate 93 /min [facility] 06-08-2024 10:32-0500 Respiratory rate 18 /min [facility] 06-08-2024 10:32-0500 SaO2% (BldA) [Mass fraction] 98 % [facility] 06-08-2024 10:32-0500 Systolic blood pressure 130 mm[Hg] [facility] 04-21-2024 13:40-0400 Body height 165.1 cm [facility] 04-21-2024 13:40-0400 Body mass index (BMI) [Ratio] 28.1 kg/m2 [facility] 04-21-2024 13:40-0400 Body temperature 99.4 [degF] [facility] 04-21-2024 13:40-0400 Body weight 76.82 kg [facility] 04-21-2024 13:40-0400 Diastolic blood pressure 84 mm[Hg] [facility] 04-21-2024 13:40-0400 Heart rate 85 /min [facility] 04-21-2024 13:40-0400 Respiratory rate 18 /min [facility] 04-21-2024 13:40-0400 SaO2% (BldA) [Mass fraction] 99 % [facility] 04-21-2024 13:40-0400 Systolic blood pressure 126 mm[Hg] [facility] 12-22-2023 18:07-0400 Body height 165.1 cm [facility] 12-22-2023 18:07-0400 Body mass index (BMI) [Ratio] 27.8 kg/m2 [facility] 12-22-2023 18:07-0400 Body temperature 98.7 [degF] [facility] 12-22-2023 18:07-0400 Body weight 75.74 kg [facility] 12-22-2023 18:07-0400 Heart rate 84 /min [facility] 12-22-2023 18:07-0400 Respiratory rate 18 /min [facility] 12-22-2023 18:07-0400 SaO2% (BldA) [Mass fraction] 99 % [facility] Encounters Encounter Date Encounter Type Care Provider Facility Start: 02-01-2025 End: 02-01-2025 Clinisync Result Encounter Eric Elayne DO Work Phone: [facility] Unsolicited Start: 02-01-2025 End: 02-01-2025 Clinisync Result Encounter Eric Elayne DO Work Phone: [facility]solic[facility] Start: 01-29-2025 End: 01-29-2025 Bamboo flowsheet Eric Elayne DO Work Phone: [facility] Start: 01-29-2025 End: 01-29-2025 Bamboo flowsheet Eric Elayne DO Work Phone: [facility] Start: 01-29-2025 End: 01-29-2025 Office outpatient visit 15 minutes Eric Elayne DO Work Phone: [facility] Comment on above: 37 weeks gestation o f ([facility]); Third trimester ([facility]); H/O pre-eclampsia in prior , currently ([facility]); Diet controlled gestational diabetes mellitus (GDM), antepartum ([facility]) Start: 01-29-2025 End: 01-29-2025 ambulatory ERIC ELAYNE Not Available Start: 01-23-2025 End: 01-23-2025 Clinisync Result Encounter Eric Elayne DO Work Phone: [facility] Unsolicited Start: 01-23-2025 End: 01-23-2025 Clinisync Result Encounter Eric Elayne DO Work Phone: [facility] Unsolic[facility] Start: 01-22-2025 End: 01-22-2025 Bamboo flowsheet Eric Elayne DO Work Phone: [facility] Start: 01-22-2025 End: 01-22-2025 Bamboo flowsheet Eric Elayne DO Work Phone: [facility] Start: 01-22-2025 End: 01-22-2025 ambulatory ERIC ELAYNE Not Available Start: 01-22-2025 End: 01-22-2025 Office outpatient visit 15 minutes Eric Elayne DO Work Phone: [facility] Comment on above: Third trimester preg [place] ([facility]); 36 weeks gestation of ([facility]) Start: 01-18-2025 End: 01-18-2025 Clinisync Result Encounter [...] Comment on above: Third trimester preg [place] ([facility]); 34 weeks gestation of ([facility]); H/O pre-eclampsia in prior , currently ([facility]); Diet controlled gestational diabetes mellitus (GDM), antepartum ([facility]) Start: 01-03-2025 End: 01-03-2025 Clinisync Result Encounter [...] Not Available Start: 09-08-2024 End: 09-08-2024 ambulatory [facility] Work Phone: Start: 09-08-2024 End: 09-08-2024 Patient encounter procedure [facility] Loc Work Phone: Start: 09-06-2024 End: 09-08-2024 Clinisync Result Encounter Eric Elayne DO Work Phone: [facility] Unsolicited Start: 09-06-2024 End: 09-08-2024 Clinisync Result Encounter Eric Elayne DO Work Phone: [facility] Unsolicited Start: 08-21-2024 End: 08-21-2024 Bamboo flowsheet Erci Elayne DO Work Phone: [facility] [...] GA: 10w0d Start: 06-08-2024 End: 06-08-2024 ambulatory [facility] Work Phone: Start: 06-08-2024 End: 06-08-2024 Patient encounter procedure [facility] Work Phone: Start: 04-21-2024 End: 04-21-2024 ambulatory [facility] Work Phone: Start: 04-21-2024 End: 04-21-2024 Patient encounter procedure [facility] Ur[facility] Loc Work Phone: Start: 12-22-2023 End: 12-22-2023 ambulatory [facility] Work Phone: Start: 12-22-2023 End: 12-22-2023 Patient encounter procedure [facility] Ur[facility] Loc Work Phone: Start: 12-01-2022 ambulatory Facility:[facility] [place] Start: 08-24-2022 End: 08-25-[address] MECHE LE Facility:[facility] Start: 08-19-2022 End: 08-19-[address] ERIC HOLLY Facility:[facility] Start: 07-30-2022 End: 07-30-2022 ambulatory LEANDRO VERDUZCO Facility:[facility] Start: 03-11-2022 End: 03-11-[address] ERIC HOLLY Facility:[facility] Start: 11-23-2021 End: 11-23-2021 ambulatory LEANDRO VERDUZCO Facility:[facility] Start: 02-07-2017 End: 02-07-2017 Ambulatory [facility] Start: 02-06-2017 End: 02-07-2017 Emergency department patient visit IBRAHIMA WARE Facility:[facility] Procedures Date Procedure Procedure Detail Performing Clinician Start: 02-01-2025 US OB BPP W NON-STRESS Eric Elayne DO Work Phone: Start: 01-29-2025 Urnls dip stick/tabl et rgnt non-auto w/o micrscp Eric Elayne DO Work Phone: Start: 01-23-2025 US OB BPP W NON-STRESS Eric Elayne DO Work Phone: Start: 01-22-2025 Urnls dip stick/tabl et rgnt [...] Work Phone: Start: 11-16-2024 [facility] UA (CLEAN/CATCH) ENGAGEMENT LEAD/MICRO IF IND. Eric Elayne DO Work Phone: [...] [facility] Start: 02-07-2017 NURSING COMMUNICATION P SHARLENE ESTRADA PRICILA Start: 02-07-2017 DISCHARGE PATIENT ALTA [facility] Start: 02-07-2017 URINALYSIS WITH MICROSCOPIC ALTA KERN PRICILA Start: 02-07-2017 URINE DRUG SCREEN ALTA KERN PRICILA Start: 02-07-2017 DIET GENERAL ALTA DE SA [...] cervix [facility] Start: 03-26-2025 Influenza vaccination [facility] Start: 02-05-2025 End: 02-05-2025 Patient encounter procedure 02/05/2025 8:10 AM EDT Routine [facility] [address] [place] [id number] Eric Holly, DO [address] [facility] [address] [place], [place] [address] [facility] Start: 01-29-2025 End: 01-29-2025 Patient encounter procedure [facility] Comment on above: Arrived Start: 01-22-2025 End: 01-22-2026 CULTURE, GROUP B STREP WITH SUSCEPTIBLITY CULTURE, GROUP B STREP WITH SUSCEPTIBLITY Lab Routine Third trimester ([facility]) Expected: 01/22/2025, Expires: 01/22/2026 [facility] Work Phone: Comment on above: Expected: 01/22/2025 , Expires: 01/22/2026 Start: 01-22-2025 End: 01-22-2025 Patient encounter procedure 01/22/2025 1:30 PM EDT Routine [facility] [address] [place] [phone] Eric Holly, DO [address] [place] [address] [facility] Start: 01-09-2025 End: 01-09-2025 Patient encounter procedure 01/09/2025 1:40 PM EDT Routine [facility] [address] [facility] [place] [phone] Eric Holly, DO [address] [place] [address] [facility] Start: 12-25-2024 End: 12-25-2024 Patient encounter procedure 12/25/2024 2:00 PM EDT Routine [facility] [address] [place] [address] Eric Holly, DO [address] [place] [address] [facility] Start: 12-13-2024 End: 12-13-2024 [...] [facility] [address] [place] [address] Eric Holly, DO [address] [place] [address] [facility] Start: 11-07-2024 End: 11-07-2025 CBC panel - Blood by Automated count CBC Lab Routine Diabetes mellitus screening Expected: 11/07/2024 (Approximate), Expires: 11/07/2025 [facility] Work Phone: Comment on above: Expected: 11/07/2024 (Approximate), Expires: 11/07/2025 Start: 11-07-2024 End: 11-07-2025 Measurement of glucose 1 hour after glucose challenge for glucose tolerance test Glucose tolerance, 1 hour Lab Routine Diabetes mellitus screening Expected: 11/07/2024 (Approximate), Expires: 11/07/2025 [facility] Comment on above: Expected: 11/07/2024 (Approximate), Expires: 11/07/2025 Start: 11-07-2024 End: 11-07-2024 Patient encounter procedure 11/07/2024 1:20 PM EDT Routine [facility] [address] [facility] [place] [id number] Eric Holly, DO [address] [place] [address] [facility] Start: 10-16-2024 End: 10-16-2024 Patient encounter procedure 10/16/2024 2:20 PM EDT Routine [facility] [address] [place] [id number] Eric Holly, DO [address] [place] [address] [facility] Start: 09-18-2024 End: 03-18-2025 Alpha fetoprotein, maternal Alpha fetoprotein, maternal Lab Routine Second trimester 18 weeks gestation of Expected: 09/18/2024 (Approximate), Expires: 03/18/2025 [facility] Comment on above: Expected: 09/18/2024 (Approximate), Expires: 03/18/2025 Start: 09-18-2024 End: 09-18-2025 US for US OB 14+ weeks anatomy scan Imaging Routine Screening, , for anatomic survey Expected: 09/18/2024, Expires: 09/18/2025 [facility] Comment on above: Expected: 09/18/2024 , Expires: 09/18/2025 Start: 09-18-2024 End: 09-18-2024 Patient encounter procedure [facility] Comment on above: Arrived Start: 08-21-2024 End: 09-21-2024 Alpha fetoprotein, maternal Alpha fetoprotein, maternal Lab Routine 14 weeks gestation of Second trimester Expected: 08/21/2024 (Approximate), Expires: 09/21/2024 [facility] Work Phone: Comment on above: Expected: 08/21/2024 (Approximate), Expires: 09/21/2024 Start: 08-21-2024 End: 08-21-2024 Patient encounter procedure [facility] Comment on above: Arrived Start: 07-21-2024 End: 07-21-2025 ABO/Rh ABO/Rh Lab Routine Missed menses , unspecified gestational age Expected: 07/21/2024 (Approximate), Expires: 07/21/2025 [facility] Comment on above: Expected: [...] first trimester Expected: 07/21/2024 (Approximate), Expires: 07/21/2025 [facility] Comment on above: Expected: 07/21/2024 (Approximate), Expires: 07/21/2025 Start: 07-21-2024 End: 07-21-2025 US Pelvis transvaginal US OB transvaginal Imaging Routine Missed menses Expected: 07/21/2024 (Approximate), Expires: 07/21/2025 [facility] Comment on above: Expected: 07/21/2024 (Approximate), Expires: 07/21/2025 Bacteria identified in Urine by Culture Urine culture Microbiology Routine Missed menses Ordered: 07/21/2024 [facility] Comment on above: Ordered: 07/21/2024 CBC W Auto Different ial panel - Blood CBC and differential Lab Routine Missed menses , unspecified gestational age Ordered: 07/21/2024 [facility] Comment on above: Ordered: 07/21/2024 CHLAMYDIA TRACHOMATI S (GENITO/STI) CHLAMYDIA TRACHOMATIS (GENITO/STI) Lab Routine STD exposure Ordered: 09/18/2024 [facility] Comment on above: Ordered: 09/18/2024 Cytology Cervical or vaginal smear or scraping study Pap Smear Pathology and Cytology Routine Well woman exam with routine gynecological exam Ordered: 09/18/2024 [facility] Comment on above: Ordered: 09/18/2024 Hemoglobin A1c/Hemoglobin.total in Blood Hemoglobin A1c Lab Routine Missed menses , unspecified gestational age Ordered: 07/21/2024 [facility] Comment on above: Ordered: 07/21/2024 Hepatitis B virus surface Ag [Presence] in Serum or Plasma by Immunoassay Hepatitis B surface antigen Lab Routine Missed menses , unspecified gestational age Ordered: 07/21/2024 [facility] Comment on above: Ordered: 07/21/2024 Hepatitis C virus Ab [Presence] in Serum or Plasma by Immunoassay Hepatitis C antibody Lab Routine Missed menses , unspecified gestational age Ordered: 07/21/2024 [facility] Comment on above: Ordered: 07/21/2024 HIV-1/HIV-2 antigen/antibody combination immunoassay HIV-1 and HIV-2 antibodies Lab Routine Missed menses , unspecified gestational age Ordered: 07/21/2024 [facility] Comment on above: Ordered: 07/21/2024 Human papilloma viru s DNA [Presence] in Unspecified specimen by Probe with amplification HPV DNA probe, amplified Microbiology Routine Well woman exam with routine gynecological exam Ordered: 09/18/2024 [facility] Comment on above: Ordered: 09/18/2024 Neisseria gonorrhoea e DNA [Presence] in Unspecified specimen by JESS with probe detection Neisseria gonorrhea DNA probe, direct Lab Routine STD exposure Ordered: 09/18/2024 [facility] Comment on above: Ordered: 09/18/2024 Reagin Ab [Presence] in Serum by RPR RPR Lab Routine Missed menses , unspecified gestational age Ordered: 07/21/2024 [facility] Comment on above: Ordered: 07/21/2024 Rubella antibody, IgG Rubella an tibody, IgG Lab Routine Missed menses , unspecified gestational age Ordered: 07/21/2024 [facility] Comment on above: Ordered: 07/21/2024 SURESWAB(R) ADVANCED VAGINITIS PLUS, TMA SURESWAB(R) ADVANCED VAGINITIS PLUS, TMA Pathology and Cytology Routine Vaginal discharge Ordered: 09/18/2024 [facility] Work Phone: Comment on above: Ordered: 09/18/2024 Payers Date Payer Category Payer Medicaid [employer] [place] [place] [id number] 2022 Medicaid [id number] 2019 Unknown [id number] 2017 Unknown 2014 Unknown [id number] 1990 Unknown [id number] [id number]3 1990 Unknown [id number] 2.16.840.1.574481.3.579.2.593 1990 Unknown [id number] 2.16.840.1.269515.3.579.2.593 1990 Unknown [id number] 2.16.840.1.904994.3.579.2.593 1990 Unknown [id number] 2.16.840.1.453797.3.579.2.59 1990 Unknown [id number] 2.16.840.1.357667.3.579.2.727 1990 Unknown [id number] 2.16.840.1.616128.3.579.2.1258 1990 Unknown [id number] 2.16.840.1.553930.3.579.2.1258 1990 Unknown [id number] 2.16.840.1.205958.3.579.2.125 1990 Unknown [id number] 2.16.840.1.651755.3.579.2.1258 1990 Unknown [id number] 2.16.840.1.581325.3.579.2.1258 1990 Unknown [id number] 2.16.840.1.182348.3.579.2.125 1990 Unknown [id number] 2.16.840.1.124469.3.579.2.125 1990 Unknown [id number] 2.16.840.1.078889.3.579.2.125 1990 Unknown [id number] 2.16.840.1.513692.3.579.2.1258 1990 Unknown [id number] 2.16.840.1.893936.3.579.2.125 1990 Unknown [id number] 2.16.840.1.671295.3.579.2.1259 1959 Unknown [id number] Unknown O [id number] Social History Date Type Detail Facility Start: 03-31-2023 End: 08-11-2023 Tobacco smoking status NHIS Never smoked tobacco (finding) [facility] Start: 1990 Sex Assigned At Female F [facility] Start: 06-08-2024 End: 09-08-2024 Sex Female (finding) [facility] Start: 03-31-2023 Tobacco use and exposure Smokeless tobacco non-user [facility] Start: 07-21-2024 End: 01-29-2025 Alcoholic beverage intake Current drinker of alcohol [...] meal for a total of 4times daily. [id number] Start: 11-23-2024 End: 12-25-2024 1 each by In Vit ro route Daily Use to check FSBS four times daily [id number] Start: 11-23-2024 End: 12-23-2024 1 strip by In Vi tro route Daily Use in the morning prior to breakfast, 1 hour after each meal for a total of 4times daily. [id number] Start: 12-25-2024 End: 01-29-2025 1 each by In Vit ro route Daily Use to check FSBS four times daily [id number] Start: 01-01-2025 End: 01-31-2025 Clinical Notes 04-21-2024 to 01-29-2025 Tala Huizar NP - 01/29/2025 10:00 AM Pennie Huizar NP - 01/22/2025 1:30 PM Payton Kelly LPN - 01/09/2025 1:40 PM Pennie Huizar NP - 12/25/2024 2:00 PM EDT Note Date & Type Note Facility 01-29-2025 History of Presen t illness Narrative Reason [...] Multiple Vitamins-Minerals (MULTIVITAMIN ADULT, MINERALS, PO) Multivitamin Exhphocm-Ode-Nm-FA ( 1 + IRON PO) valACYclovir (VALTREX) [...] 08/21/2024 History of pre-eclampsia 08/21/2024 Second trimester ([facility]) 08/21/2024 Resolved Ambulatory Problems Diagnosis Date [...] nursing note reviewed. Exam conducted with a kettle operator head present. Vitals: Estimated body mass index is 34.63 kg/m as calculated from the following: Height as of 06/24/23: 5' 5 . Weight as of this encounter: 208 lb 1.9 oz. BP: 110/70 Patient's last menstrual period was 05/14/2024. ASSESSMENT & PLAN ICD-10-CM 1. 37 weeks gestation of ([facility]) Z3A.37 POCT urinalysis dipstick manually resulted 2. Third trimester ([facility]) Z34.93 POCT urinalysis dipstick manually resulted 3. H/O pre-eclampsia in prior , currently ([facility]) O09.299 4. Diet controlled gestational diabetes mellitus (GDM), antepartum ([facility]) O24.410 Return OB: Patient presents today [...] Eric Holly DO documented in this encounter [facility] 01-22-2025 History of Presen t illness Narrative [...] Multiple Vitamins-Minerals (MULTIVITAMIN ADULT, MINERALS, PO) Multivitamin Lrkoumxv-Lja-Sx-FA ( 1 + IRON PO) ALLERGIES Allergies [...] 08/21/2024 History of pre-eclampsia 08/21/2024 Second trimester ([facility]) 08/21/2024 Resolved Ambulatory Problems Diagnosis Date [...] nursing note reviewed. Exam conducted with a kettle operator head present. Vitals: Estimated body mass index is 34.58 kg/m as calculated from the following: Height as of 06/24/23: 5' 5 . Weight as of this encounter: 207 lb 12.8 oz. BP: 116/70 Patient's last menstrual period was 05/14/2024. ASSESSMENT & PLAN ICD-10-CM 1. Third trimester ([facility]) Z34.93 POCT urinalysis dipstick manually resulted CULTURE, GROUP B STREP WITH SUSCEPTIBLITY CULTURE, GROUP B STREP WITH SUSCEPTIBLITY 2. 36 weeks gestation of ([facility]) Z3A.36 POCT urinalysis dipstick manually resulted [...] Eric Holly DO documented in this encounter [facility] 01-09-2025 History of Presen t illness [...] Multiple Vitamins-Minerals (MULTIVITAMIN ADULT, MINERALS, PO) Multivitamin Hcwridcr-Hch-Ko-FA ( 1 + IRON PO) ALLERGIES Allergies [...] 08/21/2024 History of pre-eclampsia 08/21/2024 Second trimester ([facility]) 08/21/2024 Resolved Ambulatory Problems Diagnosis Date [...] nursing note reviewed. Exam conducted with a kettle operator head present. Vitals: Estimated body mass index is 34.11 kg/m as calculated from the following: Height as of 06/24/23: 5' 5 . Weight as of this encounter: 205 lb. BP: 118/78 Patient's last menstrual period was 05/14/2024. ASSESSMENT & PLAN ICD-10-CM 1. Third trimester ([facility]) Z34.93 POCT urinalysis dipstick manually resulted 2. 34 weeks gestation of ([facility]) Z3A.34 3. H/O pre-eclampsia in prior , currently ([facility]) O09.299 4. Diet controlled gestational diabetes mellitus (GDM), antepartum ([facility]) O24.410 Return OB: Patient presents today [...] Eric Holly DO documented in this encounter [facility] 12-25-2024 History of Presen t illness [...] to check FSBS. Blood Glucose Monitoring Suppl (D-Sagoon Glucometer) w/Device kit 1 kit, Does not apply, Daily, Use four times daily to check FSBS. In the morning prior to breakfast & 1 hour after each meal for a total of 4times daily. Multiple Vitamins-Minerals (MULTIVITAMIN ADULT, MINERALS, PO) Multivitamin Rmmiplys-Nfq-Ue-FA ( 1 + IRON PO) ALLERGIES Allergies [...] nursing note reviewed. Exam conducted with a kettle operator head present. Vitals: Estimated body mass index is [...] Tala Huizar NP on behalf of: Eric Elayne, DO documented in this encounter [facility] 12-13-2024 History of Presen t illness [...] to check FSBS. Blood Glucose Monitoring Suppl ([employer] Highlights-Sagoon Glucometer) w/Device kit 1 kit, Does not [...] Multiple Vitamins-Minerals (MULTIVITAMIN ADULT, MINERALS, PO) Multivitamin Purgcewl-Sxz-So-FA ( 1 + IRON PO) ALLERGIES Allergies [...] nursing note reviewed. Exam conducted with a kettle operator head present. Vitals: Estimated body mass index is [...] Eric Holly DO documented in this encounter [facility] 11-28-2024 History of Presen t illness [...] to check FSBS. Blood Glucose Monitoring Suppl (D-Sagoon Glucometer) w/Device kit 1 kit, Does not [...] (ProtoNix) 20 MG EC tablet Pantoprazole Sodium Axchcclg-Whr-Ng-FA ( 1 + IRON PO) ALLERGIES Allergies [...] nursing note reviewed. Exam conducted with a kettle operator head present. Vitals: Estimated body mass index is [...] Eric Holly DO documented in this encounter [facility] 11-07-2024 History of Presen t illness Narrative Reason for Appointment: Patient ID: Abram Villarreal is a 33 y.o. female who presents for Routine Visit Patient presents today for Return OB appointment. MEDICATIONS Current Outpatient Medications Medication Instructions albuterol HFA 90 mcg/act inhaler Every 4 hours Multiple Vitamins-Minerals (MULTIVITAMIN ADULT, MINERALS, PO) Multivitamin pantoprazole (ProtoNix) 20 MG EC tablet Pantoprazole Sodium Uvbboiya-Cba-Yi-FA ( 1 + IRON PO) valACYclovir (VALTREX) [...] nursing note reviewed. Exam conducted with a kettle operator head present. Vitals: Estimated body mass index is [...] Eric Holly DO documented in this encounter [facility] 09-18-2024 History of Presen t illness [...] nursing note reviewed. Exam conducted with a kettle operator head present. Vitals: Estimated body mass index is [...] of: PALLAVI Mccord documented in this encounter [facility] 08-21-2024 History of Presen t illness [...] or undercooked meat, and stay away from [facility]. Patient has been consulted regarding any further [...] Eric Holly DO documented in this encounter [facility] 07-21-2024 History of Presen t illness [...] or undercooked meat, and stay away from [facility]. Patient has also been advised to not [...] Keiko Bruce MA documented in this encounter [facility] 04-21-2024 Evaluation note Diagnosis Onset Date Resolution Acute right otitis media acute April 21, 2024 1:26pm Viral URI acute June 08, 2024 9:51am [facility] Work Phone: Evaluation note* Diagnosis Onset Date Resolution Status Strep throat acute [facility] Work Phone: Evaluation note* Diagnosis Onset Date Resolution Status Acute right otitis media acu te [facility] Work Phone: Evaluation note* Diagnosis Missed menses , unspecified gestational age Encounter for supervision of normal first in first trimester [facility] 14 weeks gestation of Second trimester state, incidental Tinea pedis, unspecified laterality History of pre-eclampsia History of anemia Personal history of diseases of blood and blood-forming organs [facility] Diagnosis Onset Date Resolution Status Admit Date Viral URI with cough acute Febr uary 2024 3:37pm [facility] Work Phone: Evaluation note* Diagnosis Well woman exam with routine [...] of ([facility]) [facility] Diagnosis 37 weeks gestation of ([facility]) Third trimester ([facility]) state, incidental H/O pre-eclampsia in prior , currently ([facility]) [...] section and content) DATE CREATED AUTHOR 01/19/2018 [facility] DATE CREATED AUTHOR AUTHOR'S ORGANIZ ATION 01/19/2018 [facility] DATE CREATED AUTHOR AUTHOR'S ORGANIZ ATION 08/26/2022 [facility] DATE CREATED AUTHOR AUTHOR'S ORGANIZ ATION 12/02/2022 [facility] DATE CREATED AUTHOR AUTHOR'S ORGANIZ ATION 02/01/2025 [facility] EPIC Care Teams (unrecognized sec [...] Inactive Member Role Status Dates Violet Cerda MILL STENCILER-C Primary Care Provider Active Start: June 08, 2024 End: June 08, 2024 Mayte Joiner APRN Attending Provider Active Start: June 08, 2024 End: June 08, 2024 Silk Blocker Relationship Specialty Start Date End Date Cuco Munoz MD [address] [facility] [place] [address] PCP - General Family Medicine 06/24/23 Silk Blocker Relationship Specialty Start Date End Date Cuco Munoz MD [address] [facility] [place] [address] PCP - General Family Medicine 06/24/23 Silk Blocker Relationship Specialty Start Date End Date Cuco Munoz MD [address] [facility] [place] [address] PCP - General Family Medicine 06/24/23 Silk Blocker Relationship Specialty Start Date End Date Cuco Munoz MD [address] [facility] [place] [address] PCP - General Family Medicine 06/24/23 Team Status: Inactive Member Role Status Dates Violet Cerda MILL STENCILER-Cruz Primary Care Provider Active Start: September 08, 2024 End: September 08, 2024 VI Nevarez Active Start: August End: September 08, 2024 Mayte Joiner APRN Attending Provider Active Start: September 08, 2024 End: September 08, 2024 Silk Blocker Relationship Specialty Start Date End Date Cuco Munoz MD [address] [facility], [place] [id number] PCP - General Family Medicine 06/24/23 Silk Blocker Relationship Specialty Start Date End Date Cuco Munoz MD [address] [place] [address] PCP - General Family Medicine 06/24/23 Silk Blocker Relationship Specialty Start Date End Date Cuco Munoz MD [address] [place] [address] PCP - General Family Medicine 06/24/23 Silk Blocker Relationship Specialty Start Date End Date Cuco Munoz MD [address] [place] [address] PCP - General Family Medicine 06/24/23 Silk Blocker Relationship Specialty Start Date End Date Cuco Munoz MD [address] [place] [address] PCP - General Family Medicine 06/24/23 Silk Blocker Relationship Specialty Start Date End Date Cuco Munoz MD [address] [place] [address] PCP - General Family Medicine 06/24/23 Silk Blocker Relationship Specialty Start Date End Date Cuco Munoz MD [address] [place] [address] PCP - General Family Medicine 06/24/23 Silk Blocker Relationship Specialty Start Date End Date Cuco Munoz MD [address] [place] [address] PCP - General Family Medicine 06/24/23 Silk Blocker Relationship Specialty Start Date End Date Cuco Munoz MD [address] [place] [address] PCP - General Family Medicine 06/24/23 Silk Blocker Relationship Specialty Start Date End Date Cuco Munoz MD [address] [place] [address] PCP - General Family Medicine 06/24/23 Silk Blocker Relationship Specialty Start Date End Date Cuco Munoz MD [address] [place] [address] PCP - General Family Medicine 06/24/23 Silk Blocker Relationship Specialty Start Date End Date Cuco Munoz MD [address] [place] [address] PCP - General Family Medicine 06/24/23 Silk Blocker Relationship Specialty Start Date End Date Cuco Munoz MD [address] [facility] [place] [address] PCP - General Family Medicine 06/24/23 Silk Blocker Relationship Specialty Start Date End Date Cuco Munoz MD [address] [place] [address] PCP - General Family Medicine 06/24/23 Silk Blocker Relationship Specialty Start Date End Date Cuco Munoz MD [address] [facility] [place] [address] PCP - General Family Medicine 06/24/23 Silk Blocker Relationship Specialty Start Date End Date Cuco Munoz MD [address] [place] [address] PCP - General Family Medicine 06/24/23 Goals [...] BE BASED ON THE PRIMARY CLINICAL RECORDS. [employer] provides no warranty or guarantee of the accuracy or completeness of information in this document.
[2025-02-03 11:04] VITALS: BP 121/79; PULSE 106
== END 2025-02-03 11:28 | disposition home or self-care (01) ==
LOC: FBCO 10:59 → FBC 11:00
PROVIDERS: Visit Provider Obstetrics & Gynecology
DX: O24.419 Gestational diabetes mellitus in pregnancy, unspecified control (principal)
CPT/HCPCS: 59025

== ENCOUNTER 2025-02-06 18:37 | Inpatient (IN) | payer MEDICAID, SELFPAY ==
[2025-02-06] VITALS (10 sets, daily range): BP systolic 129–138; BP diastolic 73–92; PULSE 70–86; TEMP 37.1
[2025-02-06 20:04] LABS: Hematocrit 31.3 % (36.0-48.0); Hemoglobin 10.0 g/dL (12.0-16.0); Mean Corpuscular HGB Conc 31.9 g/dL (29.9-35.2); Mean Corpuscular Hemoglobin 23.3 pg (26.7-34.0); Mean Corpuscular Volume 72.8 fL (81.0-99.0); Platelet Count 437 10^3/uL (150-450); Red Blood Count 4.30 10^6/uL (4.20-5.40); White Blood Count 12.7 10^3/uL (4.0-11.0)
[2025-02-06] MEDS: MISOPROSTOL 100 MCG TABLET 25 MCG VAGINAL ×2 (20:06→23:07)
[2025-02-06 20:16] LABS: Cannabinoid Screen Urine NEGATIVE (NEGATIVE); Methamphetamines Screen Urine NEGATIVE (NEGATIVE); Tricyclic Antidepressant Urine NEGATIVE (NEGATIVE)
[2025-02-07] VITALS (21 sets, daily range): BP systolic 111–245; BP diastolic 55–106; PULSE 66–142; TEMP 36.8–36.9
[2025-02-07] MEDS: 0.9 % SODIUM CHLORIDE 1,000 ML 125 ML IV (00:38)
[2025-02-07] MEDS: ROPIVACAINE HCL/PF 400 MG/200 ML PREMIX 6 MG EPIDURAL (01:25)
[2025-02-07] MEDS: OXYTOCIN/0.9 % SODIUM CHLORIDE 20 UNITS/1,000 ML PLAST..BAG 125 UNIT IV (02:41)
--- NOTE | 2025-02-07 02:43 | PM.OBPRCVD ---
Procedure Intrapartal events: None Induction method: per misoprostol protocol Delivery monitor: none Route of delivery: Episiotomy Description: none L&D Laceration Description: none Estimated blood loss (mL): 250 Anesthesia type: Epidural Disposition: floor Delivery date: 02/07/25 Gender: female presentation: vertex Placental delivery description: Spontaneous cord description: 3 Vessels
[2025-02-07] MEDS: IBUPROFEN 600 MG TABLET PO ×3 (04:08→18:51)
[2025-02-07] MEDS: VALACYCLOVIR HCL 500 MG TABLET PO (08:23)
[2025-02-08 00:12] VITALS: BP 149/86; PULSE 75; TEMP 36.6
[2025-02-08 06:30] LABS: Hematocrit 32.3 % (36.0-48.0); Hemoglobin 10.3 g/dL (12.0-16.0); Immature Granulocytes Abs Auto 0.13 10^3/uL (0.00-0.03); Immature Granulocytes Pct Auto 1.1 % (0.0-0.5); Lymphocytes Absolute Auto 2.3 10^3/uL (1.2-3.8); Mean Corpuscular HGB Conc 31.9 g/dL (29.9-35.2); Mean Corpuscular Hemoglobin 23.6 pg (26.7-34.0); Mean Corpuscular Volume 73.9 fL (81.0-99.0); Platelet Count 425 10^3/uL (150-450); Red Blood Count 4.37 10^6/uL (4.20-5.40); White Blood Count 12.0 10^3/uL (4.0-11.0)
[2025-02-08 06:55] VITALS: BP 122/82; PULSE 72
[2025-02-08] MEDS: IBUPROFEN 600 MG TABLET PO ×2 (06:55→12:26)
--- NOTE | 2025-02-08 07:20 | W.PC.ACHO ---
Registration Status: ADM IN Primary Language: Preferred Language: Albanian Report received from Dee GRANDA at 0710. Care assumed. Active Medications Generic Name Dose Route Start Last Admin Trade Name Edna PRN Reason Stop Dose Admin Acetaminophen 650 mg 02/07/25 02:44 Acetaminophen 325 Mg Tablet PO Q6H PRN Mild Pain Al Hydroxide/Mg Hydroxide 2,400 mg 02/07/25 02:44 Magnesium Hydroxide 2,400 Mg/10 Ml Oral.Susp PO Q6H PRN Dyspepsia Benzocaine/Menthol 1 applic 02/07/25 02:44 Benzocaine/Menthol 85 Gram Noxon Bottle TOPICAL Q2H PRN Pain Diphtheria/Pertussis/Tetanus Vacc 0.5 ml 02/09/25 09:00 Adacel Diph,Pertuss(Acell),Tet Vac/Pf 0.5 Ml Adult Syringe IM 02/09/25 09:01 .ONCE ONE Docusate Sodium 100 mg 02/08/25 09:00 Docusate Sodium 100 Mg Capsule PO BID ZAIRA Sodium Chloride 1,000 mls @ 125 mls/hr 02/06/25 19:30 02/07/25 02:38 Sodium Chloride 0.9% 1,000 Ml IV Infused .Q8H ZAIRA Infusion Ibuprofen 600 mg 02/07/25 02:44 02/08/25 06:55 Ibuprofen 600 Mg Tablet PO 600 mg Q6H PRN Administration Moderate Pain Measles/Mumps/Rubella Vaccine Live 0.5 ml 02/09/25 09:00 Measles,Mumps,Rubella Vacc/Pf 0.5 Ml Vial SQ 02/09/25 09:01 .ONCE ONE Ondansetron HCl 4 mg 02/06/25 19:11 Ondansetron Pf 4 Mg/2 Ml Vial IV Q6H PRN Nausea And Vomiting Ondansetron HCl 4 mg 02/06/25 19:11 Ondansetron 4 Mg Rapdis Tablet SL Q6H PRN Nausea And Vomiting Senna 17.2 mg 02/07/25 20:00 Sennosides 8.6 Mg Tablet PO QHS PRN Constipation Simethicone 80 mg 02/07/25 02:44 Simethicone 80 Mg Tab.Chew PO QID PRN Abdominal Distention Temazepam 15 mg 02/07/25 02:44 Temazepam 15 Mg Capsule PO QHS PRN Sleep Valacyclovir HCl 500 mg 02/07/25 09:00 07/16/25 08:23 Valacyclovir Hcl 500 Mg Tablet PO 500 mg DAILY ZAIRA Administration Witch Oanh/Glycerin 1 pad 02/07/25 02:44 Glycerin/Witch Oanh Pads TOPICAL Q2H PRN Pain Respiratory Oxygen Delivery Method Room Air
--- NOTE | 2025-02-08 07:46 | PM.OBPN ---
OB - PN: Subj Subjective Patient comments: no complaints and pain well controlled status: doing well Exam Constitutional Vital Signs, click to edit/add: Last Vital Signs Temp 97.9 F 02/08/25 00:12 Pulse 72 02/08/25 06:55 Resp 15 02/08/25 00:12 BP 122/82 02/08/25 06:55 O2 Del Method Room Air 02/08/25 00:59 Documenting provider has reviewed patient's vital signs: yes Common normals: no apparent distress Respiratory Common normals: normal respiratory effort and clear to auscultation bilaterally Cardio Common normals: regular rate and regular rhythm GI Common normals: Normal to inspection, nondistended, normoactive bowel sounds present Extremity Common normals: no clubbing, cyanosis or edema and no calf tenderness Results Labs Labs: Short CBC 02/08/25 Range/Units 06:17 WBC 12.0 H (4.0-11.0) 10^3/uL Hgb 10.3 L (12.0-16.0) g/dL Hct 32.3 L (36.0-48.0) % Plt Count 425 (150-450) 10^3/uL OB - PN: A/P Plan - Vaginal Delivery day: 1 Plan: routine care, discharge home and follow up 6 weeks Time Spent with Patient Time: Total time spent is greater than 50% in coordination of care (as documented) at patient's floor/unit and/or counseling patient: Total time spent with greater than 50% in coordination of care (as documented) at patient's floor/unit and/or counseling patient: less than 15 minutes
[2025-02-08 08:20] VITALS: TEMP 36.6
[2025-02-08] MEDS: DOCUSATE SODIUM 100 MG CAPSULE PO (08:34)
[2025-02-08] MEDS: VALACYCLOVIR HCL 500 MG TABLET PO (08:34)
[2025-02-08 08:38] VITALS: BP 123/83; PULSE 81
== END 2025-02-08 13:05 | disposition home or self-care (01) | DRG 560 ==
PROVIDERS: Admitting Provider Obstetrics & Gynecology; Visit Provider Obstetrics & Gynecology
DX: O24.420 Gestational diabetes mellitus in childbirth, diet controlled (principal); Z3A.38 38 weeks gestation of pregnancy; Z37.0 Single live birth; Z87.59 Personal history of other complications of pregnancy, childbirth and the puerperium
CPT/HCPCS: 36415; 51702; 59025; 59050; 59410; 80307; 85025; 85027; 86850; 86900; 86901; J0665; J2795

== ENCOUNTER 2025-02-15 19:31 | Emergency (ER) | payer MEDICAID, SELFPAY ==
--- OUTSIDE RECORDS SUMMARY | 2024-10-20 10:15 | XMS_ITS ---
Author Organization [facility] es Address [address] [place] [address] Care Team Providers Care Trawl Net Maker Name Role Phone Suki Vincent Primary Care Provider [phone] Halley Nugent Unavailable Clare Talley Unavailable [phone] REASON FOR VISIT BH f/u 2-4 weeks Encounters Encounter Location Date Provider Diagnosis [facility] [address] [place] [address] 10/20/2024 Clare Talley Plan Of Treatment Next Appt Details Provider Name:Karin Tellez on, 04/25/2025 03:00:00 PM, [address] [place], [address], Progress Notes * CAROLE NELSONOB:1990 (34 yo F)Acc No.[id number]:10/20/2024 BH F/U - Patient Patient: ABRAM PALOMO Provider: Gerard Talley :1990 A ge:33 Y S ex:Female Date:10/20/2024 Address[address] [place] Pcp:Suki Vincent Subjective: * Chief Complaints: * 1 . BH f/u 2-4 weeks. Objective: Therapeutic Interventions: Assessment: Plan: * Images: Care Plan Details* * Electronic signature of RISHI Torres on 02/15/2025 at 07:43 PM EDT Sign off status: Pending * Provider: Gerard Talley Date: 0 10/20/2024 Generated for Sujatha Rivera on: 0 02/15/2025 07:43 PM EDT
--- OUTSIDE RECORDS SUMMARY | 2025-02-05 08:10 | XMS_ITS | Encounter Summary ---
Author Organization [facility] Address [address] [facility] [place] [address] Care Team Providers Care Stranding Supervisor Name Role Phone Cuco Munoz MD Primary Care Provider [phone] Reason for Visit * Reason Comments Routine Visit Encounter Details Date Type Department Care Team (Late st Contact Info) Description 02/05/2025 8:10 AM EDT Routine [facility] [address] [place] [address] Eric Holly, DO [address] [place] [address] Third trimester ([facility]); 38 weeks gestation of ([facility]); Diet controlled gestational diabetes mellitus (GDM), antepartum ([facility]); H/O pre-eclampsia in prior , currently ([facility]); HSV infection Social History Tobacco Use Types Packs/Day Years [...] Sign Reading Time Taken Comments Blood Pressure 122/78 02/05/2025 8:26 AM EDT Pulse - - Temperature - - Respiratory Rate - - Oxygen Saturation - - Inhaled Oxygen Concentration - - Weight 94.1 kg (207 lb 8 oz) 02/05/2025 8:26 AM EDT Height - - Body Mass Index 34.53 06/24/2023 10:09 AM EST documented in this encounter Progress Notes * Roxana Avinabritton, CARA - 02/05/2025 8:10 AM EDT Reason for Appointment: Patient ID: [...] EACH MEAL FOR A TOTAL OF 4TIMESDAILY. Multiple Vitamins-Minerals (MULTIVITAMIN ADULT, MINERALS, PO) Multivitamin Eurnunps-Ryd-Ig-FA ( 1 + IRON PO) valACYclovir (VALTREX) [...] 08/21/2024 History of pre-eclampsia 08/21/2024 Second trimester ([facility]) 08/21/2024 Resolved Ambulatory Problems Diagnosis [...] Constitutional: Appearance: Normal appearance. She is well-developed. Genitourinary: Vulva normal. Cardiovascular: Rate and Rhythm: Normal rate and [...] nursing note reviewed. Exam conducted with a agricultural extension specialist present. Vitals: Estimated body mass index is 34.53 kg/m?? as calculated from the following: Height as of 06/24/23: 5' 5 . Weight as of this encounter: 207 lb 8 oz. BP: 122/78 Patient's last menstrual period was 05/14/2024. ASSESSMENT & PLAN ICD-10-CM 1. Third trimester ([facility]) Z34.93 2. 38 weeks gestation of ([facility]) Z3A.38 POCT urinalysis dipstick manually resulted 3. Diet controlled gestational diabetes mellitus (GDM), antepartum ([facility]) O24.410 4. H/O pre-eclampsia in prior , currently ([facility]) O09.299 5. HSV infection B00.9 Patient presents today for a routine obstetrics appointment. Patient is currently 38w3d with a Estimated Date of Delivery: 02/16/25. Patient desires to have IOL with Cytotec. Patient given instructions to arrive at 6:30pm on 02/06/25. Patient to schedule 6 week appointment prior to leaving office today. Documented by Roxana Garcia LPN on behalf of: Eric Holly DO documented in this encounter Plan of Treatment Upcoming Encounters Date Type Department Care Team (Late st Contact Info) Description 03/21/2025 10:50 AM EDT Visit [facility] [address] [place] [address] Eric Holly DO [address] [place] [address] documented as of this encounter Procedures Procedure Name Priority Date/Time Associated Diagnosis Comments POCT URINALYSIS DIPSTICK Routine 02/05/2025 8:30 AM EDT 38 weeks gestation of ([facility]) documented in this encounter Results * (ABNORMAL) POCT urinalysis dipstick manually resulted (02/05/2025 8:30 AM EDT) Color, UA Yellow Clarity, UA Clear Glucose, UA Negative Negative - 2000(110) ++++ mg/dL Bilirubin, UA Negative Negative - 4(70) +++ mg/dL Ketones, UA Positive Negative - 160(16) ++++ mg/dL Comment:Trace Spec Grav, UA 1.010 1 - 1.03 Blood, UA Negative Negative - 50 Oscar/mcL pH, UA 6.0 5 - 9 Protein, UA Negative Negative - 2000(20) ++++ mg/dL Urobilinogen, UA 0.2 0.2 - 12 mg/dL Leukocytes, UA Positive Negative - 500+++ Mike/mcL Comment:Small Nitrite, UA Negative Negative - Positive Urine 02/05/2025 8:30 AM EDT Loraine OLIVO POINT OF CARE TEST ENTER/EDIT OR DERABLES Final Result documented in this encounter Visit Diagnoses Diagnosis Third trimester ([facility]) state, incidental 38 weeks gestation of ([facility]) Diet controlled gestational diabetes mellitus (GDM), antepartum ([facility]) H/O pre-eclampsia in prior , currently ([facility]) HSV infection Herpes simplex without mention of complication documented in this encounter Care Teams Stranding Supervisor Relationship Specialty Start Date End Date Cuco Munoz MD [address] [place] [address] PCP - General Family Medicine 06/24/23 documented as of this encounter
[2025-02-15 19:37] VITALS: BP 132/88; PULSE 74; TEMP 36.8; O2SAT 99; BMI 30.8
--- OUTSIDE RECORDS SUMMARY | 2025-02-15 19:43 | XMS_ITS | Encounter Summary ---
Author Organization [facility] Address [address] [place] [address] Care Team Providers Care Wax Engraver Name Role Phone Cuco Munoz MD Primary Care Provider [phone] Encounter Details Date Type Department Care Team (Late st Contact Info) Description 02/07/2025 Abstract [facility] [address] [place] [address] Eric Holly [facility] [place], [place] [address] Social History Tobacco Use Types Packs/Day Years [...] Description 03/21/2025 10:50 AM EDT Visit [facility] OB [address] [place] [address] Eric Holly [facility] [place], [facility] documented as of this encounter Visit Diagnoses Not on filedocumented in this encounter Care Teams Wax Engraver Relationship Specialty Start Date End Date Cuco Munoz MD [address] [place] [address] PCP - General Family Medicine 06/24/23 documented as of this encounter
--- OUTSIDE RECORDS SUMMARY | 2025-02-15 19:43 | XMS_ITS | Encounter Summary ---
Author Organization [facility] Address [address] [place] [address] Care Team Providers Care Infrastructure Technician Name Role Phone Cuco Munoz MD Primary Care Provider [phone] Encounter Details Date Type Department Care Team (Late st Contact Info) Description 02/07/2025 Abstract [facility] [address] [facility] [place] [address] Eric Holly [facility] [place], [place] [address] Social History Tobacco Use Types Packs/Day Years [...] Description 03/21/2025 10:50 AM EDT Visit [facility] [address] [place] [address] Eric Holly [facility] [place], [id number] documented as of this encounter Visit Diagnoses Not on filedocumented in this encounter Care Teams Infrastructure Technician Relationship Specialty Start Date End Date Cuco Munoz MD [address] [place] [address] PCP - General Family Medicine 06/24/23 documented as of this encounter
--- OUTSIDE RECORDS SUMMARY | 2025-02-15 19:43 | XMS_ITS | Encounter Summary ---
Author Organization [facility] Address [address] [place] [address] Care Team Providers Care Highway Safety Engineer Name Role Phone Cuco Munoz MD Primary Care Provider [phone] Encounter Details Date Type Department Care Team (Late st Contact Info) Description 02/07/2025 Abstract [facility] [address] [facility] [place] [address] Eric Holly [facility] [place], [place] [address] Social History Tobacco Use Types Packs/Day Years [...] Description 03/21/2025 10:50 AM EDT Visit [facility] OB [address] [place] [address] Eric Holly [facility] [place], [facility]11 documented as of this encounter Visit Diagnoses Not on filedocumented in this encounter Care Teams Highway Safety Engineer Relationship Specialty Start Date End Date Cuco Munoz MD [address] [place] [address] PCP - General Family Medicine 06/24/23 documented as of this encounter
--- OUTSIDE RECORDS SUMMARY | 2025-02-15 19:43 | XMS_ITS | Clinical Summary ---
Author Organization [facility] Address [address] [place] [address] Care Team Providers Care Energy Rater Name Role Phone Cuco Munoz MD Primary Care Provider Allergies Active Allergy Reactions Criticality Noted Date Comments Amoxicillin Hives,Rash Low 02/07/2017 Other Reaction(s): hives, Unknown Azithromycin Hives,Rash Low 02/07/2017 Cefaclor Hives,Rash Low 02/07/2017 Clarithromycin Hives,Rash,Unknown Low 02/07/2017 Other Reaction(s): hives Doxycycline Hives,Rash Low 06/24/2023 Sulfa Antibiotics Hives,Rash Low 02/06/2017 Other Reaction(s): hives, Unknown Sulfamethoxazole-Trimetho prim Hives,Rash Low 02/07/2017 Other Reaction(s): hives, Unknown Medications Colkeuiy-Wsw-Lj -FA ( 1 + IRON PO) Active albuterol HFA 90 mcg/act inhaler every 4 (four) hours 5 Active Multiple Vitamins-Minera ls (MULTIVITAMIN ADULT, MINERALS, PO) Multivitamin Act violeta Alcohol Swabs (Alcohol Prep Pad) 70 % padsIndications :Gestational diabetes mellitus (GDM), antepartum, gestational diabetes method of control unspecified (HHS-HCC),[place] lisa glucose tolerance test Apply 1 Pad topically Daily Use four times daily to check FSBS. 150 each 3 5 Active Blood Glucose Monitoring Suppl (ONE TOUCH ULTRA 2) w/Device kitIndications: Gestational diabetes mellitus (GDM), antepartum, gestational diabetes method of control unspecified (HHS-HCC),[place] lisa glucose tolerance test USE FOUR TIMES DAILY TO CHECK FASTING BLOOD SUGAR. IN THE MORNING PRIOR TO BREAKFAST & 1 HOUR AFTER EACH MEAL FOR A TOTAL OF 4TIMES DAILY. 1 kit 5 Active valACYclovir (Valtrex) 500 MG tablet Take 500 mg by mouth Daily 5 Active Glucose Blood (Blood Glucose Test) stripIndication s:Gestational diabetes mellitus (GDM), antepartum, gestational diabetes method of control unspecified ([facility]),[place] lisa glucose tolerance test 1 strip by In Vitro route Daily Use in the morning prior to breakfast, 1 hour after each meal for a total of 4times daily. 150 strip 3 5 025 Lancets Ultra Thin miscIndications :Gestational diabetes mellitus (GDM), antepartum, gestational diabetes method of control unspecified ([facility]),[place] lisa glucose tolerance test 1 each by In Vitro route Daily Use to check FSBS four times daily 150 each 3 5 025 Active Problems Problem Noted Date Diagnosed Date History of anemia 08/21/2024 Tinea pedis 08/21/2024 History of pre-eclampsia 08/21/2024 Second trimester ([facility]) 08/21/2024 Estimated Date of Delivery Comme nts Yes 02/16/2025 Based on Ultraso und Encounters Date Type Department Care Team Description 02/08/2025 Clinisync Result Encounter NOMS External Department Unsolicited Kermit Holly, DO 02/07/2025 Abstract [facility] [place] [address] Kermit Holly, DO 02/07/2025 Abstract [facility] OB [facility] [place] [address] Kermit Holly, DO 02/07/2025 Abstract [facility] OB [facility] [place] [address] Kermit Holly, DO 02/06/2025 Clinisync Result Encounter NOMS External Department Unsolicited Kermit Holly, DO 02/05/2025 8:10 AM EDT Routine [facility]OM[facility] [address] [place] [address] Kermit Holly, DO Third trimester ([facility]); 38 weeks gestation of ([facility]); Diet controlled gestational diabetes mellitus (GDM), antepartum ([facility]); H/O pre-eclampsia in prior , currently ([facility]); HSV infection 02/05/2025 Bamboo flowsheet [facility] [address] [place] [address] Kermit Holly, DO 02/02/2025 Travel 02/01/2025 Clinisync Result Encounter NOMS External Department Unsolicited Kermit Holly, DO 01/29/2025 10:00 AM EDT Routine [facility] [address] [place] [address] Kermit Holly, DO 37 weeks gestation of ([facility]); Third trimester ([facility]); H/O pre-eclampsia in prior , currently ([facility]); Diet controlled gestational diabetes mellitus (GDM), antepartum ([facility]) 01/29/2025 Bamboo flowsheet [facility]OM[facility] [address] [place] [address] Kermit Holly, DO 01/26/2025 Travel 01/23/2025 Clinisync Result Encounter NOMS External Department Unsolicited Kermit Holly, DO 01/22/2025 1:30 PM EDT Routine [facility] [address] [place] [address] Kermit Holly, DO Third trimester ([facility]); 36 weeks gestation of ([facility]) 01/22/2025 Bamboo flowsheet [facility]OM[facility] [address] [place] [address] Kermit Holly, DO 01/19/2025 Travel 01/18/2025 Clinisync Result Encounter NOMS External Department Unsolicited Kermit Holly, DO 01/10/2025 Clinisync Result Encounter NOMS External Department Unsolicited Kermit Holly, DO 01/09/2025 1:40 PM EDT Routine [facility] [address] [place] [address] Kermit Holly, Third trimester ([facility]); 34 weeks gestation of ([facility]); H/O pre-eclampsia in prior , currently ([facility]); Diet controlled gestational diabetes mellitus (GDM), antepartum ([facility]) 01/09/2025 Bamboo flowsheet [facility] OB [address] [place] [address] Kermit Holly, DO 01/06/2025 Travel 01/04/2025 Telephone [facility] OB [address] [place] [address] Priscila Landry MA 01/03/2025 Clinisync Result Encounter [facility]OMS External Department Unsolicited Kermit Holly, DO 01/01/[address] [facility] [address] [place] [address] Priscila Landry MA 12/27/2024 Clinisync Result Encounter NOMS External Department Unsolicited Kermit Holly, DO 12/27/2024 Clinisync Result Encounter NOMS External Department Unsolicited Kermit Holly, DO 12/25/2024 2:00 PM EDT Routine [facility] OB [address] [place] [address] [place] [address] Kermit Holly, 32 weeks gestation of ([facility]); Third trimester ([facility]); Gestational diabetes mellitus (GDM), antepartum, gestational diabetes method of control unspecified ([facility]); Elevated glucose tolerance test 12/25/2024 Refill [facility] [address] [place] [address] Kermit Holly, Gestational diabetes mellitus (GDM), antepartum, gestational diabetes method of control unspecified ([facility]); Elevated glucose tolerance test 12/22/2024 Travel 12/13/2024 2:30 PM EDT Routine [facility] [address] [place] [address] Kermit Holly DO 30 weeks gestation of ([facility]); Third trimester ([facility]); Gestational diabetes mellitus (GDM), antepartum, gestational diabetes method of control unspecified ([facility]) 12/13/2024 Bamboo flowsheet [facility] [address] [place] [address] Kermit Holly DO 12/10/2024 Travel 11/28/2024 1:50 PM EDT Routine [facility] [address] [place] [address] Kermit Holly DO Third trimester ([facility]); 28 weeks gestation of ([facility]) 11/28/2024 Bamboo flowsheet [facility] [address] [place] [address] Kermit Holly DO 11/25/2024 Travel 11/23/20[address] [facility] [address] [place] [address] Keiko Bruce MA 11/23/2024 Clinisync Result Encounter NOMS External Department Unsolicited Kermit Holly DO 11/16/2024 Clinisync Result Encounter NOMS External [...] 8 oz) 02/05/2025 8:26 AM EDT Height 165.1 cm (5' 5 ) 06/24/2023 10:09 AM EST Body Mass Index 34.53 06/24/2023 10:09 AM EST Plan of Treatment Upcoming Encounters Date Type Department Care Team (Late st Contact Info) Description 03/21/2025 10:50 AM EDT Visit [facility] OB [address] [facility] [place] [address] Kermit Holly, DO [address] [facility] [place] [address] Health Maintenance Due Date Last Done Comments Influenza Vaccine (#1) 2025 Cervical Cancer Screening 09/18/2025 HPV/Cotest 09/18/2025 Pap Smear 09/18/2025 09/18/2024 Procedures Procedure Name Priority Date/Time Associated Diagnosis Comments ALL CBC WITH AUTO DIFF Routine 6:17 AM EDT HP CBC WITH PLATELET NO DIFFERENTIAL Routine 02/06/2025 7:45 PM EDT [facility] DRUG SCREEN RAPID (URINE) Routine 02/06/2025 7:00 PM EDT POCT URINALYSIS DIPSTICK Routine 02/05/2025 8:30 AM EDT 38 weeks gestation of ([facility]) US OB BPP W NON-STRESS 02/01/2025 9:07 AM EDT POCT URINALYSIS DIPSTICK Routine 01/29/2025 10:05 AM EDT 37 weeks gestation of ([facility]) Third trimester ([facility]) US OB BPP W NON-STRESS 01/23/2025 10:58 PM EDT CULTURE, GROUP B STREP WITH SUSCEPTIBLITY Routine 01/22/2025 2:10 PM EDT Third trimester ([facility]) POCT URINALYSIS DIPSTICK Routine 01/22/2025 2:07 PM EDT Third trimester ([facility]) 36 weeks gestation of ([facility]) US OB BPP W NON-STRESS 01/18/2025 8:14 AM EDT US OB BPP W NON-STRESS 01/10/2025 7:01 PM EDT POCT URINALYSIS DIPSTICK Routine 01/09/2025 1:53 PM EDT Third trimester ([facility]) US OB BPP W NON-STRESS 01/03/2025 8:19 PM EDT US OB GROWTH 12/27/2024 7:37 PM EDT US OB BPP W NON-STRESS 12/27/2024 7:37 PM EDT POCT URINALYSIS DIPSTICK Routine 12/25/2024 2:32 PM EDT 32 weeks gestation of ([facility]) POCT URINALYSIS DIPSTICK Routine 12/13/2024 3:07 PM EDT 30 weeks gestation of ([facility]) Third trimester ([facility]) GLUCOSE 1 HOUR Routine 11/23/2024 10:40 AM EDT ALL CBC WITH AUTO DIFF Routine 10:40 AM EDT TBH UA (CLEAN/CATCH) DIPLOMATIC OFFICER/MICRO IF IND. Routine 11/16/2024 7:27 PM EDT PAP SMEAR Routine 09/18/2024 12:00 AM EST from Last 3 Months or Most Recently Relevant to Health Maintenance Results * (ABNORMAL) ALL CBC WITH AUTO DIFF (02/08/2025 6:17 AM EDT) Only the most recent of2 resultswithin the time period is included. TBH WBC 12.0(H) 4.0 - 11.0 10 3/uL TBH TBH RBC 4.37 4.20 - 5.40 10 6/uL TBH TBH HGB 10.3(L) 12.0 - 16.0 g/dL TBH TBH HCT 32.3(L) 36.0 - 48.0 % TBH TBH MCV 73.9(L) 81.0 - 99.0 fL TBH TBH MCH 23.6(L) 26.7 - 34.0 pg TBH TBH MCHC 31.9 29.9 - 35.2 g/dL TBH TBH RDW 17.3(H) 11.0 - 15.0 % TBH TBH PLT 425 150 - 450 10 3/uL TBH TBH MPV 10.4 9.5 - 13.5 fL TBH NEUTROPHILS PERCENT AUTO 69.3 43.0 - 75.0 % TBH LYMPHOCYTES PERCENT AUTO 19.5(L) 20.5 - 60.0 % TBH MONOCYTES PERCENT AUTO 6.6 1.7 - 12.0 % TBH TBH EO % 2.8 0.9 - 7.0 % TBH BASOPHILS PERCENT AUTO 0.7 0.2 - 2.0 % TBH IMMATURE GRANULOCYTES PCT AUTO 1.1(H) 0.0 - 0.5 % TBH NEUTROPHILS ABSOLUTE AUTO 8.3(H) 1.4 - 6.5 10 3/uL TBH LYMPHOCYTES ABSOLUTE AUTO 2.3 1.2 - 3.8 10 3/uL TBH MONOCYTES ABSOLUTE AUTO 0.8 0.3 - 0.8 10 3/uL TBH TBH EO # 0.3 0.0 - 0.7 10 3/uL TBH BASOPHILS ABSOLUTE AUTO 0.1 0.0 - 0.1 10 3/uL TBH IMMATURE GRANULOCYTES ABS AUTO 0.13(H) 0.00 - 0.03 10 3/uL TBH 02/08/2025 6:17 AM EDT 02/08/2025 6:21 AM EDT Narrative CLINISYNC - 02/08/2025 6:32 AM EDT [facility] Elayne DO CLINISYNC Final Result [facility] * (ABNORMAL) HP CBC WITH PLATELET NO DIFFERENTIAL (02/06/2025 7:45 PM EDT) TBH WBC 12.7(H) 4.0 - 11.0 10 3/uL TBH TBH RBC 4.30 4.20 - 5.40 10 6/uL TBH TBH HGB 10.0(L) 12.0 - 16.0 g/dL TBH TBH HCT 31.3(L) 36.0 - 48.0 % TBH TBH MCV 72.8(L) 81.0 - 99.0 fL TBH TBH MCH 23.3(L) 26.7 - 34.0 pg TBH TBH MCHC 31.9 29.9 - 35.2 g/dL TBH TBH RDW 17.1(H) 11.0 - 15.0 % TBH TBH PLT 437 150 - 450 10 3/uL TBH TBH MPV 10.2 9.5 - 13.5 fL TBH 02/06/2025 7:45 PM EDT 02/06/2025 8:02 PM EDT Narrative CLINISYNC - 02/06/2025 8:04 PM EDT [employer] DO CLINISYNC Final Result [facility] TB * TBH DRUG SCREEN RAPID (URINE) (02/06/2025 7:00 PM EDT) CANNABINOID SCREEN URINE NEGATIVE NEGATIVE TBH PHENCYCLIDINE SCREEN URINE NEGATIVE NEGATIVE TBH COCAINE SCREEN URINE NEGATIVE NEGATIVE TBH METHAMPHETAMINES SCREEN URINE NEGATIVE NEGATIVE TBH OPIATE SCREEN URINE NEGATIVE NEGATIVE TBH AMPHETAMINE SCREEN URINE NEGATIVE NEGATIVE TBH BENZODIAZEPINES SCREEN URINE NEGATIVE NEGATIVE TBH TRICYCLIC ANTIDEPRESSANT URINE NEGATIVE NEGATIVE TBH METHADONE SCREEN URINE NEGATIVE NEGATIVE TBH BARBITURATES SCREEN URINE NEGATIVE NEGATIVE TBH OXYCODONE SCREEN URINE NEGATIVE NEGATIVE TBH BUPRENORPHINE SCREEN URINE NEGATIVE NEGATIVE TBH Comment: DRUG CLASS TEST SYSTEM CUT-OFF CONCENTRATIONS ARE FOLLOWS: AMP (Amphetamine): 500 ng/mL BAR (Barbiturates): 200 ng/mL BZO (Benzodiazepines): 150 ng/mL BUP (Buprenorphine): 10 ng/mL RICO (Cocaine): 150 ng/mL mAMP (Methamphetamine): 500 ng/mL MTD (Methadone): 200 ng/mL OPI (Opiates): 100 ng/mL OXY (Oxycodone): 100 ng/mL PCP (Phencyclidine): 25 ng/mL THC (Cannabinoids): 50 ng/mL TCA (Trycyclic Antidepressants): 300 ng/mL 02/06/2025 7:00 PM EDT 02/06/2025 8:02 PM EDT Narrative CLINISYNC - 02/06/2025 8:16 PM EDT Kermit Holly DO [facility] Final Result [facility] * (ABNORMAL) POCT urinalysis dipstick manually resulted (02/05/2025 8:30 AM EDT) Only the most recent of6 [...] Result * US OB BPP W NON-STRESS (02/01/2025 9:07 AM EDT) Only the most recent of6 resultswithin the time period is included. Anatomical Region Laterality Modality Other 02/01/2025 9:07 AM EDT Narrative 02/01/2025 9:10 [place] [address] Ultrasound Report Signed Patient: LYNNETTE NELSON MR#: [id number] : 1990 Acct:[id number] Age/Sex: 34 / F ADM Date: 01/31/25 Loc: US Attending Dr: Kermit Holly D.O. Ordering Physician: Kermit Holly D.O. Date of Service: 01/31/25 Procedure(s): US OB BPP w non-stress Accession Number(s): [id number] cc: Kermit Holly D.O.; Physician,Non-Staff M.[place] [address] [address] Patient Name: LYNNETTE NELSON MRN: [id number] date: 1990 Sex: F Assigned Patient Location: US Current Patient Location: Accession/Order Number: [id number] Exam Date: 02/01/2025 09:05 Report Date: 02/01/2025 09:07 At the request of: KERMIT HOLLY DO Procedure: US OB BPP w non-stress BIOPHYSICAL PROFILE: CLINICAL INFORMATION: GESTATIONAL DIABETES MELLITUS O24.419 COMPARISON: 01/23/2025 There is a single live intrauterine gestation in cephalic presentation. The reported gestational age is 37 weeks 5 days. The heart rate [id number] beats per minute. FINDINGS: TONE: 1 or [...] percentile is 23.9 cm. Total score: 8/8 US/US OB BPP w non-stress IMPRESSION: NORMAL BIOPHYSICAL PROFILE. Impression dictated by: Libia Shrestha M.D. 02/01/2025 9:07 AM Dictation Location: [place] [address] Electronically authenticated by: [id number] Y Date: 02/01/2025 09:07 Dictated By: Libia Shrestha M.D. Signed By: 02/01/25909 DD/ 6 TD/TT: Voting Machine Mechanic: Procedure Note Radiology, Radiologist, - 02/01/2025 [place] [address] Ultrasound Report Signed Patient: LYNNETTE NELSON RMR#: [id number] : 1990Acct:[id number] Age/Sex: 34 / FADM Date: 01/31/25 Loc: US Attending Dr: Kermit Holly D.O. Ordering Physician: Kermit Holly D.O. Date of Service: 01/31/25 Procedure(s): US OB BPP w non-stress Accession Number(s): [id number] cc: Kermit Holly D.O.; Physician,Non-Staff [place] The [place] [id number] Patient Name: LYNNETTE NELSON MRN: [id number] date: 1990 Sex: F Assigned Patient Location: US Current Patient Location: Accession/Order Number: [id number] Exam Date: 02/01/2025 09:05 Report Date: 02/01/2025 09:07 At the request of: KERMIT HOLLY DO Procedure: US OB BPP w non-stress BIOPHYSICAL PROFILE: CLINICAL INFORMATION: GESTATIONAL DIABETES MELLITUS O24.419 COMPARISON: 01/23/2025 There is a single live intrauterine gestation in cephalic presentation.The reported gestational age is 37 weeks 5 days. The heart [id number] beats per minute. FINDINGS: TONE: 1 or [...] Shrestha M.D. 02/01/2025 9:07 AM Dictation Location: [place] [address] Electronically authenticated by: [id number] Y Date: 9:07 Dictated By: Libia Shrestha M.D. Signed By:02/01/25909 DD/ 6 TD/TT: Voting Machine Mechanic: us Kermit Elayne DO CLINISYNC IMAGING Final Result * CULTURE, GROUP B STREP WITH SUSCEPTIBLITY (01/22/2025 2:10 PM EDT) Swab 01/22/2025 2:10 PM EDT us Kermit Elayne DO LAB BLOOD ORDERABLES Final Resul t EXTERNAL LAB * US OB GROWTH (12/27/2024 7:37 PM EDT) Anatomical Region Laterality Modality Other 12/27/2024 7:37 PM EDT Narrative 12/27/2024 7:40 PM EDT The [address] [address] Ultrasound Report Signed Patient: LYNNETTE NELSON MR#: [id number] : 1990 Acct:[id number] Age/Sex: 34 / F ADM Date: 12/27/24 Loc: US Attending Dr: Kermit Holly D.O. Ordering Physician: Kermit Holly D.O. Date of Service: 12/27/24 Procedure(s): US OB growth Accession Number(s): [id number] cc: Kermit Holly D.O.; Physician,Non-Staff [place] [facility] [place] [id number] Patient Name: LYNNETTE NELSON MRN: [id number] date: 1990 Sex: F Assigned Patient Location: US Current Patient Location: Accession/Order Number: [id number] Exam Date: 12/27/2024 19:33 Report Date: 12/27/2024 [...] Chaudhari M.D. 12/27/2024 7:37 PM Dictation Location: [place] [address] Electronically authenticated by: [id number] Y Date: 12/27/2024 19:37 Dictated By: David Chaudhari D.O. Signed By: 12/27/241939 DD/ 36 TD/TT: Voting Machine Mechanic: Procedure Note Radiology, Radiologist, MD - 12/28/2024 [place] [address] Ultrasound Report Signed Patient: LYNNETTE NELSON RMR#: [id number] : 1990Acct:[id number] Age/Sex: 34 / FADM Date: 12/27/24 Loc: US Attending Dr: Kermit Holly D.O. Ordering Physician: Kermit Holly D.O. Date of Service: 12/27/24 Procedure(s): US OB growth Accession Number(s): [id number] cc: Kermit Holly D.O.; Physician,Non-Staff [place] [address] [address] Patient Name: LYNNETTE NELSON MRN: [facility]:[id number] date: 1990 Sex: F Assigned Patient Location: US Current Patient Location: Accession/Order Number: [id number] Exam Date: 12/27/2024 19:33 Report Date: 12/27/2024 [...] Chaudhari M.D. 12/27/2024 7:37 PM Dictation Location: [place] [address] Electronically authenticated by: [id number] Y Date: 9:37 Dictated By: David Chaudhari D.O. Signed By:12/27/241939 DD/ 36 TD/TT: Voting Machine Mechanic: Kermit Holly DO CLINISYNC IMAGING Final Result * (ABNORMAL) GLUCOSE 1 HOUR (11/23/2024 10:40 AM EDT) GLUCOSE 1 HOUR 191(H) <130 mg/dL TBH 11/23/2024 10:4 0 AM EDT 11/23/2024 10:42 AM EDT Narrative CLINISYNC - 11/23/2024 11:31 AM EDT Kermit Holly DO LAB BLOOD ORDERABLES [facility] * [facility] UA (CLEAN/CATCH) DIPLOMATIC OFFICER/MICRO IF IND. (11/16/2024 7:27 PM EDT) COLOR [...] - 11/16/2024 8:12 PM EDT us Kermit Holly DO CLINISYNC Final Result CLINISYNC TBH * Pap Smear (09/18/2024 12:00 AM EST) Swab Cervical swab / Unknown Loraine OLIVO LAB CYTOLOGY ORDERABLES Final Re sult EXTERNAL LAB from Last 3 Months or Most Recently Relevant to Health Maintenance Insurance [facility] [employer]ICA[employer] [place] Care Teams Energy Rater Relationship Specialty Start Date End Date Cuco Munoz MD [address] [place] [address] PCP - General Family Medicine 06/24/23
--- OUTSIDE RECORDS SUMMARY | 2025-02-15 19:43 | XMS_ITS | Clinical Summary ---
Author Organization [facility] Address [address] [place] [address], [address] [place] [address] Care Team Providers Care Publications Manager Name Role Phone Viry Cortez MD Primary [...] Plan of Treatment Not on file Insurance [employer] Advance Directives * Full Code (Latest Code Status on File) Date Activated Date Inactivated Comments 02/07/2017 3:00 AM 02/07/2017 8:37 PM Care Teams Publications Manager Relationship Specialty Start Date End Date Viry Cortez MD [address] [facility] [place] [address] PCP - General 02/07/17
--- OUTSIDE RECORDS SUMMARY | 2025-02-15 19:43 | XMS_ITS | Encounter Summary ---
Author Organization [facility] Address [address] [place] [address] Care Team Providers Care Professional Services Consultant Name Role Phone Cuco Munoz MD Primary Care Provider [phone] Encounter Details Date Type Department Care Team (Late st Contact Info) Description 02/08/2025 Clinisync Result Encounter NOMS External Department Unsolicited Eric Holly, DO [address] [place], [facility] Social History Tobacco Use Types Packs/Day [...] AM EDT Visit [facility] BCP OB [address] [place] [phone] Eric Holly DO [address] [place] [address] documented as of this encounter Procedures Procedure Name Priority Date/Time Associated Diagnosis Comments ALL CBC WITH AUTO DIFF Routine 02/08/2025 6:17 AM EDT documented in this encounter Results * (ABNORMAL) ALL CBC WITH AUTO DIFF (02/08/2025 6:17 AM EDT) TBH WBC 12.0(H) 4.0 - 11.0 10 [...] Narrative CLINISYNC - 02/08/2025 6:32 AM EDT us Eric Inmano DO CLINISYNC Final Result [facility] documented in this encounter Visit Diagnoses Not on filedocumented in this encounter Care Teams Professional Services Consultant Relationship Specialty Start Date End Date Cuco Munoz MD [address] [place] [address] PCP - General Family Medicine 06/24/23 documented as of this encounter
--- OUTSIDE RECORDS SUMMARY | 2025-02-15 19:43 | XMS_ITS | Encounter Summary ---
Author Organization [facility] Address [address] [place] [address] Care Team Providers Care Instructional Systems Designer Name Role Phone Cuco Munoz MD Primary Care Provider [phone] Encounter Details Date Type Department Care Team (Latest Contact Info) Description 02/02/2025 Travel Social History Tobacco Use Types Packs/Day [...] Description 03/21/2025 10:50 AM EDT Visit [facility] OB [address] [place] [address] Eric Holly, DO [address] [place] [phone] documented as of this encounter Visit Diagnoses Not on filedocumented in this encounter Care Teams Instructional Systems Designer Relationship Specialty Start Date End Date Cuco Munoz MD [address] [place] [address] PCP - General Family Medicine 06/24/23 documented as of this encounter
--- OUTSIDE RECORDS SUMMARY | 2025-02-15 19:44 | XMS_ITS | Encounter Summary ---
Author Organization [facility] Address [address] [place] [address] Care Team Providers Care Law Enforcement Instructor Name Role Phone Cuco Munoz MD Primary Care Provider [phone] Encounter Details Date Type Department Care Team (Late st Contact Info) Description 10/02/2024 Orders Only [facility] OB [address] [place] [address] Priscila Landry MA Social History Tobacco [...] 10:50 AM EDT Visit [facility] BCP OB [address] [place] [address] Eric Holly, [address] [place], [place] [address] documented as of this encounter Procedures Procedure Name Priority Date/Time Associated Diagnosis Comments PAP SMEAR Routine 09/18/2024 12:00 AM EST documented in this encounter Results * Pap Smear (09/18/2024 12:00 AM EST) Swab Cervical swab / Unknown Loraine OLIVO LAB CYTOLOGY ORDERABLES Final Re sult EXTERNAL LAB documented in this encounter Visit Diagnoses Not on filedocumented in this encounter Care Teams Law Enforcement Instructor Relationship Specialty Start Date End Date Cuco Munoz MD [address] [place] [address] PCP - General Family Medicine 06/24/23 documented as of this encounter
--- OUTSIDE RECORDS SUMMARY | 2025-02-15 19:44 | XMS_ITS | Encounter Summary ---
Author Organization [facility] Address [address] [place] [address] Care Team Providers Care Chair Lift Operator Name Role Phone Cuco Munoz MD Primary Care Provider [phone] Encounter Details Date Type Department Care Team (Late st Contact Info) Description 07/21/2024 Clinisync Result Encounter [facility] External Department Unsolicited Kermit Holly, DO [address], [facility]11 Social History Tobacco Use Types Packs/Day [...] Description 03/21/2025 10:50 AM EDT Visit [facility] [address] [place] [id number] Kermit Holly DO [address] [place] [address] documented as of this encounter Procedures Procedure Name Priority Date/Time Associated Diagnosis Comments US OB TRANSVAGINAL 07/21/2024 4: 17 PM EST documented in this encounter Results * US OB TRANSVAGINAL (07/21/2024 4:17 PM EST) Anatomical Region Laterality Modality Other 07/21/2024 4:17 PM EST Narrative 07/21/2024 4:20 [place] [address] Ultrasound Report Signed Patient: LYNNETTE NELSON MR#: [id number] : 1990 Acct:[id number] Age/Sex: 33 / F ADM Date: 07/21/24 Loc: [facility] Attending Dr: Kermit Holly D.O. Ordering Physician: Kermit Holly D.O. Date of Service: 07/21/24 Procedure(s): US OB transvaginal Accession Number(s): [id number] cc: Kermit Holly D.O.; Physician,Non-Staff M.DMicah The [address] [address] Patient Name: LYNNETTE NELSON MRN: [id number] date: 1990 Sex: F Assigned Patient Location: [facility] Current Patient Location: [facility] Accession/Order Number: [id number] Exam Date: 07/21/2024 10:15 Report Date: 07/21/2024 [...] Signed By: 07/21/24 1620 DD/ 1617 TD/TT: Feedmobile Driver: Procedure Note Radiology, Radiologist, MD - 07/21/2024 [place] [address] Ultrasound Report Signed Patient: LYNNETTE NELSON RMR#: [id number] : 1990Acct:[id number] Age/Sex: 33 / FADM Date: 07/21/24 Loc: [facility] Attending Dr: Kermit Holly D.O. Ordering Physician: Kermit Holly D.O. Date of Service: 07/21/24 Procedure(s): US OB transvaginal Accession Number(s): [id number] cc: Kermit Holly D.O.; Physician,Non-Staff [place] The [place] [id number] Patient Name: LYNNETTE NELSON MRN: [id number] date: 1990 Sex: F Assigned Patient Location: [facility] Current Patient Location: [facility] Accession/Order Number: [id number] Exam Date: 07/21/2024 10:15 Report Date: 07/21/2024 [...] M.D. Signed By:07/21/24 162 DD/ 16 TD/TT: Feedmobile Driver: us Kermit Elayne DO [facility] Final Result documented in this encounter Visit Diagnoses Not on filedocumented in this encounter Care Teams Chair Lift Operator Relationship Specialty Start Date End Date Cuco Munoz MD [address] [place] [address] PCP - General Family Medicine 06/24/23 documented as of this encounter
--- OUTSIDE RECORDS SUMMARY | 2025-02-15 19:44 | XMS_ITS | Encounter Summary ---
Author Organization [facility] Address [address] [place] [address] Care Team Providers Care Circular Knitter Name Role Phone Cuco Munoz MD Primary Care Provider [phone] Encounter Details Date Type Department Care Team (Late st Contact Info) Description 02/01/2025 Clinisync Result Encounter [facility] External Department Unsolicited Kermit Holly, DO [address], [facility]11 Social History Tobacco Use Types Packs/Day [...] Description 03/21/2025 10:50 AM EDT Visit [facility] [address] [place] [phone] Kermit Holly DO [address] [place] [address] documented as of this encounter Procedures Procedure Name Priority Date/Time Associated Diagnosis Comments US OB BPP W NON-STRESS 02/01/2025 9:07 AM EDT documented in this encounter Results * US OB BPP W NON-STRESS (02/01/2025 9:07 AM EDT) Anatomical Region Laterality Modality Other 02/01/2025 9:07 AM EDT Narrative 02/01/2025 9:10 [place] [address] Ultrasound Report Signed Patient: LYNNETTE NELSON MR#: [id number] : 1990 Acct:[id number] Age/Sex: 34 / F ADM Date: 01/31/25 Loc: US Attending Dr: Kermit Holly D.O. Ordering Physician: Kermit Holly D.O. Date of Service: 01/31/25 Procedure(s): US OB BPP w non-stress Accession Number(s): [id number] cc: Kermit Holly D.O.; Physician,Non-Staff M.[facility] The [place] [id number] Patient Name: LYNNETTE NELSON MRN: [id number] date: 1990 Sex: F Assigned Patient Location: Current Patient Location: Accession/Order Number: [id number] Exam Date: 02/01/2025 09:05 Report Date: 02/01/2025 09:07 At the request of: KERMIT HOLLY DO Procedure: US OB BPP w non-stress BIOPHYSICAL PROFILE: CLINICAL INFORMATION: GESTATIONAL DIABETES MELLITUS O24.419 COMPARISON: 01/23/2025 There is a single live intrauterine gestation in cephalic presentation. The reported gestational age is 37 weeks 5 days. The heart rate [id number] beats per minute. FINDINGS: TONE: 1 or [...] Shrestha M.D. 02/01/2025 9:07 AM Dictation Location: [place] [address] Electronically authenticated by: [id number] Y Date: 02/01/2025 09:07 Dictated By: Libia Shrestha M.D. Signed By: 02/01/25909 DD/ 6 TD/TT: Paint Stockman: Procedure Note Radiology, Radiologist, MD - 02/01/2025 [place] [address] Ultrasound Report Signed Patient: LYNNETTE NELSON RMR#: [id number] : 1990Acct:[id number] Age/Sex: 34 / FADM Date: 01/31/25 Loc: US Attending Dr: Kermit Holly D.O. Ordering Physician: Kermit Holly D.O. Date of Service: 01/31/25 Procedure(s): US OB BPP w non-stress Accession Number(s): [id number] cc: Kermit Holly D.O.; Physician,Non-Staff [place] The [address] [id number] Patient Name: LYNNETTE NELSON MRN: [id number] date: 1990 Sex: F Assigned Patient Location: US Current Patient Location: Accession/Order Number: [id number] Exam Date: 02/01/2025 09:05 Report Date: 02/01/2025 09:07 At the request of: KERMIT HOLLY DO Procedure: US OB BPP w non-stress BIOPHYSICAL PROFILE: CLINICAL INFORMATION: GESTATIONAL DIABETES MELLITUS O24.419 COMPARISON: 01/23/2025 There is a single live intrauterine gestation in cephalic presentation.The reported gestational age is 37 weeks 5 days. The heart [id number] beats per minute. FINDINGS: TONE: 1 or [...] Shrestha M.D. 02/01/2025 9:07 AM Dictation Location: [place] [address] Electronically authenticated by: [id number] Y Date: 9:07 Dictated By: Libia Shrestha M.D. Signed By:02/01/25909 DD/ 6 TD/TT: Paint Stockman: us Kermit Elayne DO [facility] Final Result documented in this encounter Visit Diagnoses Not on filedocumented in this encounter Care Teams Circular Knitter Relationship Specialty Start Date End Date Cuco Munoz MD [address] [place] [address] PCP - General Family Medicine 06/24/23 documented as of this encounter
--- OUTSIDE RECORDS SUMMARY | 2025-02-15 19:44 | XMS_ITS | Encounter Summary ---
Author Organization [facility] Address [address] [place] [address] Care Team Providers Care [place] Guide Name Role Phone Cuco Munoz MD Primary Care Provider [phone] Encounter Details Date Type Department Care Team (Late Contact Info) Description 02/05/2025 Bamboo flowsheet [facility] [address] [place] [address] Eric Holly [address] [place], [facility]11 Social History Tobacco Use Types Packs/Day Years [...] [facility] [address] [place] [address] Eric Holly, [facility] [address], [facility] documented as of this encounter Visit Diagnoses Not on filedocumented in this encounter Care Teams [place] Guide Relationship Specialty Start Date End Date Cuco Munoz MD [address] [place] [address] PCP - General Family Medicine 06/24/23 documented as of this encounter
--- OUTSIDE RECORDS SUMMARY | 2025-02-15 19:44 | XMS_ITS | Encounter Summary ---
Author Organization [facility] Address [address] [place] [address] Care Team Providers Care One Piece Expansion Maker Hand Name Role Phone Cuco Munoz MD Primary Care Provider [phone] Encounter Details Date Type Department Care Team (Late st Contact Info) Description 02/06/2025 Clinisync Result Encounter [facility] External Department Unsolicited Eric Holly, DO [address], [facility]11 Social History Tobacco Use Types Packs/Day Years [...] AM EDT Visit [facility] OB [address] [place] [phone] Eric Holly DO [address] [place] [address] documented as of this encounter Procedures Procedure Name Priority Date/Time Associated Diagnosis Comments [facility] CBC WITH PLATELET NO DIFFERENTIAL Routine 02/06/2025 7:45 PM EDT TB DRUG SCREEN RAPID (URINE) Routine 02/06/2025 7:00 PM EDT documented in this encounter Results * (ABNORMAL) [facility] CBC WITH PLATELET NO DIFFERENTIAL (02/06/2025 7:45 [...] Narrative [facility] - 02/06/2025 8:04 PM EDT us Eric Elayne DO [facility] Final Result [facility] * [facility] DRUG SCREEN RAPID (URINE) (02/06/2025 [...] Narrative [facility] - 02/06/2025 8:16 PM EDT Eric Inmano DO [facility] Final Result Performing Organization Address City/State/[facility] Co de Phone Number [facility] documented in this encounter Visit Diagnoses Not on filedocumented in this encounter Care Teams One Piece Expansion Maker Hand Relationship Specialty Start Date End Date Cuco Munoz MD [address] [place] [address] PCP - General Family Medicine 06/24/23 documented as of this encounter
--- OUTSIDE RECORDS SUMMARY | 2025-02-15 19:46 | XMS_ITS | CCD ---
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 [id number] Exam Date: 12/27/2024 19:33 Report Date: 12/27/2024 [...] Chaudhari M.D. 12/27/2024 7:37 PM Dictation Location: [facility] Electronically authenticated by: [id number] Y Date: 12/27/2024 19:37 Dictated By: David Chaudhari D.O. Signed By: 12/27/241939 DD/ 36 TD/TT: Customer Service Engineer: [facility] Urinalysis macro (dipstick) panel (U)on 12-25-2024 Bilirubin, UA Negative Negative - 4(70) +++ mg/dL [facility] Blood, UA Negative Negative - 50 Oscar/mcL [facility] Clarity, UA Clear [facility] Color, UA Yellow [facility] Glucose, UA Negative Negative - 1999(110) ++++ mg/dL [facility] Interpretation and review of laboratory results Abnormal [facility] Ketones, UA Positive Negative - 160(16) ++++ mg/dL [facility] Comment on above: 15mg/dL Leukocytes, UA Positive Negative - 500+++ Mike/mcL [facility] Comment on above: small Nitrite, UA Negative Negative - Positive [facility] pH, UA 6 5 - 9 [facility] Protein, UA Negative Negative - 1999(20) ++++ mg/dL [facility] Spec Grav, UA 1.01 1 - 1.03 [facility] Urobilinogen, UA 0.2 0.2 - 12 mg/dL [facility] Urinalysis macro (dipstick) panel (U)on 12-13-2024 Bilirubin, UA Negative Negative - 4(70) +++ mg/dL [facility] Blood, UA Negative Negative - 50 Oscar/mcL [facility] Clarity, UA Clear [facility] Color, UA Yellow [facility] Glucose, UA Negative Negative - 1999(110) ++++ mg/dL [facility] Interpretation and review of laboratory results Normal [facility] Ketones, UA Negative Negative - 160(16) ++++ mg/dL [facility] Leukocytes, UA Negative Negative - 500+++ Mike/mcL [facility] Nitrite, UA Negative Negative - Positive [facility] pH, UA 6.5 5 - 9 [facility] Protein, UA Negative Negative - 1999(20) ++++ mg/dL [facility] Spec Grav, UA 1.015 1 - 1.03 [facility] Urobilinogen, UA 0.2 0.2 - 12 mg/dL [facility] ALL CBC WITH AUTO DIFFon BASOPHILS ABSOLUTE AUTO 0.1 [facility] Basophils/100 WBC (Bld) 0.6 % 0.2 - 2.0 % [facility] Eosinophils/100 WBC (Bld) 1.7 % 0.9 - 7.0 % [facility] Erythrocyte distribution width (RBC) [Ratio] 13.4 % 11.0 - 15.0 % [facility] Hematocrit (Bld) [Volume fraction] 30 % Low 36.0 - 48.0 % [facility] Hemoglobin (Bld) [Mass/Vol] 10 g/dL Low 12.0 - 16.0 g/dL [facility] IMMATURE GRANULOCYTES ABS AUTO 0.08 High [facility] Immature granulocytes/100 WBC (Bld) 0.9 % High 0.0 - 0.5 % [facility] Interpretation and review of laboratory results Abnormal [facility] LYMPHOCYTES ABSOLUTE AUTO 1.3 [facility] Lymphocytes/100 WBC (Bld) 14 % Low 20.5 - 60.0 % [facility] MCH (RBC) [Entitic mass] 27.9 pg 26.7 - 34.0 pg [facility] MCHC (RBC) [Mass/Vol] 33.3 g/dL 29.9 - 35.2 g/dL [facility] MCV (RBC) [Entitic vol] 83.8 fL 81.0 - 99.0 fL [facility] MONOCYTES ABSOLUTE AUTO 0.6 [facility] Monocytes/100 WBC (Bld) 6.5 % 1.7 - 12.0 % [facility] NEUTROPHILS ABSOLUTE AUTO 6.9 High [facility] Neutrophils/100 WBC (Bld) 76.3 % High 43.0 - 75.0 % [facility] Platelet mean volume (Bld) [Entitic vol] 10 fL 9.5 - 13.5 fL [facility] EO # 0.2 [facility] PLT 417 [facility] RBC 3.58 Low [facility] WBC 9 [facility] UA (CLEAN/CATCH) BUNDLE WRAPPER/ERNESTINA RO IF IND.on 11-16-2024 BILIRUBIN URINE Negative NEGATIVE [facility] BLOOD URINE Negative NEGATIVE [facility] Clarity (U) CLEAR CLEAR [facility] Color (U) LT. YELLOW YELLOW [facility] GLUCOSE URINE UA Negative NEGATIVE mg/dL [facility] Ketones Ql (U) Negative NEGATIVE mg/dL [facility] Leukocyte esterase Test strip Ql (U) Negative NEGATIVE [facility] NITRITE URINE Negative NEGATIVE [facility] pH (U) 6.0 [pH] 5.0 - 9.0 [facility] PROTEIN URINE Negative NEG/TRACE mg/dL [facility] SPECIFIC GRAVITY URINE 1.020 1.005 - 1.025 [facility] URINE MICROSCOPIC INDICATED NO [facility] UROBILINOGEN URINE 0.2 EU/dL 0.2 - 1.0 EU/dL [facility] Urinalysis macro (dipstick) panel (U)on 11-07-2024 Bilirubin, UA Negative Negative - 4(70) +++ mg/dL [facility] Blood, UA Negative Negative - 50 Oscar/mcL [facility] Clarity, UA Clear [facility] Color, UA Yellow [facility] Glucose, UA Negative Negative - 1999(110) ++++ mg/dL [facility] Interpretation and review of laboratory results Normal [facility] Ketones, UA Negative Negative - 160(16) ++++ mg/dL [facility] Leukocytes, UA Negative Negative - 500+++ Mike/mcL [facility] Nitrite, UA Negative Negative - Positive [facility] pH, UA 5.5 5 - 9 [facility] Protein, UA Negative Negative - 1999(20) ++++ mg/dL [facility] Spec Grav, UA 1.01 1 - 1.03 [facility] Urobilinogen, UA 0.2 0.2 - 12 mg/dL [facility] US OB INCOMPLETE ANATOMYon 0 10-27-[address] [address] Ultrasound Report Signed Patient: ABRAM VILLARREAL MR#: [id number] : 1990 Acct:[id number] Age/Sex: 33 / F ADM Date: 10/27/24 Loc: US Attending Dr: Eric Holly D.O. Ordering Physician: Eric Holly D.O. Date of Service: 10/27/24 Procedure(s): US OB incomplete anatomy Accession Number(s): [id number] cc: Eric Holly D.O.; Physician,Non-Staff [place] [address] [address] Patient Name: ABRAM VILLARREAL MRN: [facility]:[id number] date: 1990 Sex: F Assigned Patient Location: US Current Patient Location: US Accession/Order Number: [id number] Exam Date: 10/27/2024 19:10 Report Date: 10/27/2024 [...] David Chaudhari M.D.10/27/2024 7:11 PM Dictation Location: [place] [address] Electronically authenticated by: [id number] Y Date: 10/27/2024 19:11 Dictated By: David Chaudhari D.O. Signed By: 10/27/241913 DD/ 10 TD/TT: Customer Service Engineer: [facility] Radiology, Radiologi MD philip - 10/27/[address] [address] Ultrasound Report Signed Patient: ABRAM VILLARREAL MR#: [id number] : 1990 Acct:[id number] Age/Sex: 33 / F ADM Date: 10/27/24 Loc: US Attending Dr: Eric Holly D.O. Ordering Physician: Eric Holly D.O. Date of Service: 10/27/24 Procedure(s): US OB incomplete anatomy Accession Number(s): [id number] cc: Eric Holly D.O.; Physician,Non-Staff [place] [id number] Patient Name: ABRAM VILLARREAL MRN: [id number]:[id number] date: 1990 Sex: F Assigned Patient Location: US Current Patient Location: US Accession/Order Number: [id number] Exam Date: 10/27/2024 19:10 Report Date: 10/27/2024 [...] David Chaudhari M.D.10/27/2024 7:11 PM Dictation Location: [place] [address] Electronically authenticated by: [id number] Y Date: 10/27/2024 19:11 Dictated By: David Chaudhari D.O. Signed By: 10/27/241913 DD/ 10 TD/TT: Customer Service Engineer: [facility] Radiology Study observation (narrative) [facility] US OB INCOMPLETE ANATOMYOrde red By: Radiologist Radiology on 10-27-2024 [facility] Work Phone: IGP,APTIMA HPV,AGE GDLNon AGE GDLN ACOG TESTING Note . [facility] Comment on above: TESTS RESULT FLAG UN ITS REF RANGE LAB Clinician Provided Cytology Information Source.............Cervix Other.............. No. of containers..01 ThinPrep Vial Age Algo ACOG Alondra... 30-65 01 FLAG LEGEND: L-Low Normal,H-High Normal,LL-Alert Low,HH-Alert High <-Panic Low,>-Panic High,A-Abnormal,AA-Critical Abnormal Performed at: 01 =G [address] [address] Lisa Melton MD, HPV APTIMA Positive Abnormal Negative [facility] Comment on above: This nucleic acid am plification test detects fourteen high- risk HPV types (16,18,31,33,35,39,45,51,52,56,58,59,66,68) without differentiation. HPV GENOTYPE 16 Negative Negative [facility] HPV GENOTYPE 18,45 Negative Negative [facility] Comment on above: Performed at: =G - L [facility] [address] [id number] Manager Culture: Lisa Melton MD, Phone: [phone] Performed at: [facility] [address] [id number] Manager Culture: Lisa Melton MD, Phone: [phone] IGP, APTIMA HPV, RFX 16/18,45 Note . [facility] Comment on above: TESTS RESULT FLAG UN ITS REF RANGE LAB DIAGNOSIS: 02 NEGATIVE FOR INTRAEPITHELIAL LESION OR MALIGNANCY. Specimen adequacy: 02 Satisfactory for evaluation. Endocervical and/or squamous metaplastic cells (endocervical component) are present. Performed by: 02 Tiffany Knowles Member Services Coordinator (ASCP) . 02 Note: Note 02 The [...] High,A-Abnormal,AA-Critical Abnormal Performed at: 02 WB [facility] [place] [address] [place] [address] Lisa Melton MD, Interpretation and review of laboratory results Abnormal [facility] SPATULA-ALONE CERVIX [facility] RECURRENT VAGINITIS (HTRX)on 09-19-2024 ATOPOBIUM VAGINAE 0 [facility] ATOPOBIUM VAGINAE Not detected [facility] BVAB 2,3 (BACTERIAL VAGINOSIS ASSOCIATED BACTERIA 2, 3); MOBILUNCUS SPP 0 [facility] BVAB 2,3 (BACTERIAL VAGINOSIS ASSOCIATED BACTERIA 2, 3); MOBILUNCUS SPP Not detected [facility] KELSEY ALBICANS, PARAPSILOSIS, TROPICALIS 0 [facility] KELSEY ALBICANS, PARAPSILOSIS, TROPICALIS Not detected [facility] KELSEY GLABRATA 0 [facility] KELSEY GLABRATA Not [facility] KRUSEI 0 [facility] KELSEY KRUSEI Not detected [facility] CHLAMYDIA TRACHOMATIS 0 [facility] CHLAMYDIA TRACHOMATIS Not detected N [facility] GARDNERELLA VAGINALIS 0 [facility] GARDNERELLA VAGINALIS Not detected N [facility] MEGASPHAERA (TYPES 1, 2) 0 [facility] MEGASPHAERA (TYPES 1, 2) Not detected [facility] MYCOPLASMA GENITALIUM 0 [facility] MYCOPLASMA GENITALIUM Not detected N [facility] NEISSERIA GONORRHOEAE 0 [facility] NEISSERIA GONORRHOEAE Not detected N [facility] TRICHOMONAS VAGINALIS 0 [facility] TRICHOMONAS VAGINALIS Not detected N [facility] Urinalysis macro (dipstick) panel (U)on 09-18-2024 Bilirubin, UA Negative Negative - 4(70) +++ mg/dL [facility] Blood, UA Negative Negative - 50 Oscar/mcL [facility] Clarity, UA Clear [facility] Color, UA Yellow [facility] Glucose, UA Negative Negative - 1999(110) ++++ mg/dL [facility] Interpretation and review of laboratory results Normal [facility] Ketones, UA Negative Negative - 160(16) ++++ mg/dL [facility] Leukocytes, UA Negative Negative - 500+++ Mike/mcL [facility] Nitrite, UA Negative Negative - Positive [facility] pH, UA 6.5 5 - 9 [facility] Protein, UA Negative Negative - 1999(20) ++++ mg/dL [facility] Spec Grav, UA 1.025 1 - 1.03 [facility] Urobilinogen, UA 1.0 0.2 - 12 mg/dL [facility] AFP, SERUM, OPEN SPINA BIFID Aon 09-08-2024 AFP MOM 1.72 . [facility] AFP VALUE 54.2 ng/mL . [facility] COMMENT: Comment . [facility] Comment on above: Oksana Blank , Ph.D., [facility] Director References: Available Upon Request. Multiples Of Median Cutoffs For AFP Elevations Grant 2.5 Black 2.8 IDD 2.0 Twins 4.5 Abbreviation Definitions IDD - Insulin Dep Diabetes OSBR - Open Spina Bifida Risk For further inquiries contact [employer] [facility] at [phone]. This test was developed and its performance characteristics determined by [employer]. It has not been cleared or approved by the Food and Drug Administration. Performed at: [facility] [address] [facility], [place], [place] [id number] Manager Culture: Christ Rodas [facility], Phone: [phone] GEST. AGE ON COLLECTION DATE 16.7 . weeks [facility] GESTAT. AGE BASED ON Ultrasound . [facility] Comment on above: 14.4 on 08/21/2024 Recalculations are not recommended when gestational dating by LMP and ultrasound are within 10 days. INSULIN DEP DIABETES No . [facility] INTERPRETATION Comment . [facility] Comment on above: Interpretation: Scre en [...] Customer Services to discuss available options. The [employer] recommends amniocentesis be offered to women age 35 and older. [age] [facility] MULTIPLE GESTATION No . [facility] OSBR RISK 1 IN 1551 . [facility] RACE . [facility] RESULTS Report . [facility] TEST RESULTS: Negative . [facility] WEIGHT 187 . lbs [facility] N N ULTRASOUND [id number] 3 14 N 1 187 N N N N N White/ [facility] Urinalysis macro (dipstick) panel (U)on 08-21-2024 Bilirubin, UA Negative Negative - 4(70) +++ mg/dL [facility] Blood, UA Negative Negative - 50 Oscar/mcL [facility] Clarity, UA Clear [facility] Color, UA Yellow [facility] Glucose, UA Negative Negative - 1999(110) ++++ mg/dL [facility] Interpretation and review of laboratory results Normal [facility] Ketones, UA Negative Negative - 160(16) ++++ mg/dL [facility] Leukocytes, UA Negative Negative - 500+++ Mike/mcL [facility] Nitrite, UA Negative Negative - Positive [facility] pH, UA 5.5 5 - 9 [facility] Protein, UA Negative Negative - 1999(20) ++++ mg/dL [facility] Spec Grav, UA 1.015 1 - 1.03 [facility] Urobilinogen, UA 0.2 0.2 - 12 mg/dL [facility] ALL CBC WITH AUTO DIFFon BASOPHILS ABSOLUTE AUTO 0.1 [facility] Basophils/100 WBC (Bld) 0.5 % 0.2 - 2.0 % [facility] Eosinophils/100 WBC (Bld) 1.6 % 0.9 - 7.0 % [facility] Erythrocyte distribution width (RBC) [Ratio] 14 % 11.0 - 15.0 % [facility] Hematocrit (Bld) [Volume fraction] 35.4 % Low 36.0 - 48.0 % [facility] Hemoglobin (Bld) [Mass/Vol] 12.2 g/dL 12.0 - 16.0 g/dL [facility] IMMATURE GRANULOCYTES ABS AUTO 0.05 High [facility] Immature granulocytes/100 WBC (Bld) 0.4 % 0.0 - 0.5 % [facility] Interpretation and review of laboratory results Abnormal [facility] LYMPHOCYTES ABSOLUTE AUTO 1.8 [facility] Lymphocytes/100 WBC (Bld) 14.4 % Low 20.5 - 60.0 % [facility] MCH (RBC) [Entitic mass] 31 pg 26.7 - 34.0 pg [facility] MCHC (RBC) [Mass/Vol] 34.5 g/dL 29.9 - 35.2 g/dL [facility] MCV (RBC) [Entitic vol] 90.1 fL 81.0 - 99.0 fL [facility] MONOCYTES ABSOLUTE AUTO 0.8 [facility] Monocytes/100 WBC (Bld) 5.9 % 1.7 - 12.0 % [facility] NEUTROPHILS ABSOLUTE AUTO 9.8 High [facility] Neutrophils/100 WBC (Bld) 77.2 % High 43.0 - 75.0 % [facility] Platelet mean volume (Bld) [Entitic vol] 10.3 fL 9.5 - 13.5 fL [facility] EO # 0.2 [facility] PLT 338 [facility] RBC 3.93 Low [facility] WBC 12.7 High [facility] HCG ( test) Ql (U)o n 07-21-2024 Interpretation and review of laboratory results Abnormal [facility] Preg Test, Ur Positive Negative [facility] Urinalysis macro (dipstick) panel (U)on 07-21-2024 Bilirubin, UA Negative Negative - 4(70) +++ mg/dL [facility] Blood, UA Negative Negative - 50 Oscar/mcL [facility] Clarity, UA Clear [facility] Color, UA Yellow [facility] Glucose, UA Negative Negative - 2000(110) ++++ mg/dL [facility] Interpretation and review of laboratory results Normal [facility] Ketones, UA Negative Negative - 160(16) ++++ mg/dL [facility] Leukocytes, UA Negative Negative - 500+++ Mike/mcL [facility] Nitrite, UA Negative Negative - Positive [facility] pH, UA 6.5 5 - 9 [facility] Protein, UA Negative Negative - 2000(20) ++++ mg/dL [facility] Spec Grav, UA 1.015 1 - 1.03 [facility] Urobilinogen, UA 0.2 0.2 - 12 mg/dL [facility] No Panel InformationOrdered By: Mayte Joiner on 06-08-2024 Quick Strep (POC) [facility] No Panel InformationOrdered By: Ketty Jones on 04-21-2024 Quick Strep (POC) [facility] Quick Strep (POC) [facility] No Panel InformationOrdered By: Chaz Miller on 12-22-2023 Quick Strep (POC) [facility] US PELVISon 08-25-2022 US PELVIS EXAMINATION: US [...] REMA OLIVAS Date: 2022-08-25 07:25 Normal [facility] CHLAMYDIA/GONOCOCCUS JESS (SW AB/URINE/PAPon 08-23-2022 Chlamydia trachomatis, JESS Negative Normal Negative [facility] Comment on above: Performed By: #### C BC #### [facility] [address] [place] [address] Dr. Babar Marks Neisseria gonorrhoeae, JESS Negative Normal Negative [facility] Comment on above: Performed By: #### C BC #### [facility] [address] [place] [address] Dr. Babar Marks VAGINITIS/VAGINOSIS DNA PROB Tam 08-21-2022 Kelsey species Negative Normal Negative [facility] Comment on above: Performed By: #### V AGINT #### [facility] [address] [place] [address] Dr. Babar Marks Gardnerella vaginalis Negative Normal Negative [facility] Comment on above: Performed By: #### V AGINT #### [facility] [address] [place] [address] Dr. Babar Marks Trichomonas vaginalis Negative Normal Negative [facility] Comment on above: Performed By: #### V AGINT #### [facility] [address] [place] [address] Dr. Babar Marks CBC AUTO DIFFon 07-30-2022 BASO # 0.1 103/ul Normal 0.0-0.1 [facility] Comment on above: Performed By: #### C BC #### [facility] [address] [place] [address] [address] Babar Marks Basophils/100 WBC (Bld) 0.8 % Normal 0.2-2.0 [facility] Comment on above: Performed By: #### C BC #### [facility] [address] [place] [address] [address] Babar Marks EO # 0.1 103/ul Normal 0.0-0.7 [facility] Comment on above: Performed By: #### C BC #### [facility] [address] [place] [address] [address] Babar Marks Eosinophils/100 WBC (Bld) 1.4 % Normal 0.9-7.0 [facility] Comment on above: Performed By: #### C BC #### [facility] [address] [place] [address] Dr. Babar Marks Erythrocyte distribution width (RBC) [Ratio] 13.7 % Normal 11.0-15.0 [facility] Comment on above: Performed By: #### C BC #### [facility] [address] [place] [address] Dr. Babar Marks Hematocrit (Bld) [Volume fraction] 36.9 % Normal 36.0-48.0 [facility] Comment on above: Performed By: #### C BC #### [facility] [address] [place] [address] Dr. Babar Marks Hemoglobin (Bld) [Mass/Vol] 12.4 g/dL Normal 12.0-16.0 [facility] Comment on above: Performed By: #### C BC #### [facility] [address] [place] [address] Dr. Babar Marks IG # 0.03 10e3/ul Normal 0.00-0.03 [facility] Comment on above: Performed By: #### C BC #### [facility] [address] [place] [address] Dr. Babar Marks IG % 0.3 % Normal 0.0-0.5 [facility] Comment on above: Performed By: #### C BC #### [facility] [address] [place] [address] [address] Babar Marks LYMPH # 1.7 103/ul Normal 1.2-3.8 [facility] Comment on above: Performed By: #### C BC #### [facility] [address] [place] [address] Dr. Babar Marks Lymphocytes/100 WBC (Bld) 18.1 % Critically low 20.5-60.0 [facility] Comment on above: Performed By: #### C BC #### [facility] [address] [place] [address] Dr. Babar Marks MANUAL DIFF REQ NO Normal [facility] Comment on above: Performed By: #### C BC #### [facility] [address] [place] [address] Dr. Babar Marks MCH (RBC) [Entitic mass] 29.5 pg Normal 26.7-34.0 [facility] Comment on above: Performed By: #### C BC #### [facility] [address] [place] [address] Dr. Babar Marks MCHC (RBC) [Mass/Vol] 33.6 g/dL Normal 29.9-35.2 [facility] Comment on above: Performed By: #### C BC #### [facility] [address] [place] [address] Dr. Babar Marks MCV (RBC) [Entitic vol] 87.9 fL Normal 81.0-99.0 [facility] Comment on above: Performed By: #### C BC #### [facility] [address] [place] [address] Dr. Babar Marks MONO # 0.6 103/ul Normal 0.3-0.8 [facility] Comment on above: Performed By: #### C BC #### [facility] [address] [place] [address] Dr. Babar Marks Monocytes/100 WBC (Bld) 6.5 % Normal 1.7-12.0 [facility] Comment on above: Performed By: #### C BC #### [facility] [address] [place] [address] Dr. Babar Marks NEUT # 6.7 103/ul Critically high 1.4-6.5 [facility] Comment on above: Performed By: #### C BC #### [facility] [address] [place] [address] Dr. Babar Marks Neutrophils/100 WBC (Bld) 72.9 % Normal 43.0-75.0 [facility] Comment on above: Performed By: #### C BC #### [facility] [address] [place] [address] Dr. Babar Marks Platelet mean volume (Bld) [Entitic vol] 10.1 fL Normal 9.5-13.5 [facility] Comment on above: Performed By: #### C BC #### [facility] [address] [place] [address] Dr. Babar Marks PLT 393 103/ul Normal 150-450 [facility] Comment on above: Performed By: #### C BC #### [facility] [address] [place] [address] Dr. Babar Marks RBC 4.20 106/ul Normal 4.20-5.40 [facility] Comment on above: Performed By: #### C BC #### [facility] [address] [place] [address] Dr. Babar Marks WBC 9.2 103/ul Normal 4.0-11.0 [facility] Comment on above: Performed By: #### C BC #### [facility] [address] [place] [address] Dr. Babar Marks ER URINE PROFILEon 3 Bilirubin Ql (U) Negative Normal NEGATIVE [facility] Comment on above: Performed By: #### E RUR #### [facility] [address] [place] [address] Dr. Babar Marks Clarity (U) CLEAR Normal CLEAR [facility] Comment on above: Performed By: #### E RUR #### [facility] [address] [place] [address] Dr. Babar Marks Color (U) LT. YELLOW Normal YELLOW [facility] Comment on above: Performed By: #### E RUR #### [facility] [address] [address] [address] Babar VILLAREAL A micrscopic examina tion will be performed if indicated. Normal [facility] Comment on above: Performed By: #### E RUR #### [facility] [address] [place] [address] Dr. Babar Marks Glucose Ql (U) Negative Normal NEGATIVE [facility] Comment on above: Performed By: #### E RUR #### [facility] [address] [place] [address] Dr. Babar Marks Hemoglobin Ql (U) Negative Normal NEGATIVE [facility] Comment on above: Performed By: #### E RUR #### [facility] [address] [place] [address] Dr. Babar Marks Ketones Ql (U) Negative Normal NEGATIVE [facility] Comment on above: Performed By: #### E RUR #### [facility] [address] [place] [address] Dr. Babar Marks LEUKOCYTES Negative Normal NEGATIVE [facility] Comment on above: Performed By: #### E RUR #### [facility] [address] [place] [address] Dr. Babar Marks Nitrite Ql (U) Negative Normal NEGATIVE [facility] Comment on above: Performed By: #### E RUR #### [facility] [address] [place] [address] Dr. Babar Marks pH (U) 6.5 [pH] Normal 5-9 [facility] Comment on above: Performed By: #### E RUR #### [facility] [address] [place] [address] Dr. Babar Marks SPEC GRAVITY 1.015 Normal 1.005-<=1.0 25 [facility] Comment on above: Performed By: #### E RUR #### [facility] [address] [place] [address] Dr. Babar Marks UA PROTEIN Negative Normal NEGATIVE/ TRACE [facility] Comment on above: Performed By: #### E RUR #### [facility] [address] [place] [address] Dr. Babar Marks UR MICRO IND NOT INDICATED Normal [facility] Comment on above: Performed By: #### E RUR #### [facility] [address] [place] [address] Dr. Babar Marks Urobilinogen Qn (U) 0.2 {Courtney'U}/dL Normal 0.2 - 1. 0 [facility] Comment on above: Performed By: #### E RUR #### [facility] [address] [place] [address] Dr. Babar Marks LIPASEon 07-30-2022 Lipase [Catalytic activity/Vol] 141.0 U/L Normal 73.0-393.0 [facility] Comment on above: Performed By: #### L IPA, CMP #### [facility] [address] [place] [address] Dr. Babar Marks PREG HCG QUALon 07-30-2022 , QUAL Negative Normal NEGATIVE [facility] Comment on above: Performed By: #### C BC #### [facility] [address] [place] [address] Dr. Babar Marks PROF 14(COMP METB)on 023 Albumin [Mass/Vol] 3.3 g/dL Critically low 3.4-5.0 [facility] Comment on above: Performed By: #### C BC #### [facility] [address] [place] [address] Dr. Babar Marks Albumin/Globulin [Mass ratio] 0.8 {ratio} Normal [facility] Comment on above: Performed By: #### C BC #### [facility] [address] [place] [address] Dr. Babar Marks ALP [Catalytic activity/Vol] 44 U/L Critically low 46-116 [facility] Comment on above: Performed By: #### C BC #### [facility] [address] [place] [address] Dr. Babar Marks ALT [Catalytic activity/Vol] 17 U/L Normal 14-59 [facility] Comment on above: Performed By: #### C BC #### [facility] [address] [address] [address] Babar Marks Anion gap [Moles/Vol] 11.0 mmol/L Normal [facility] Comment on above: Performed By: #### C BC #### [facility] [address] [address] [address] Babar Marks AST [Catalytic activity/Vol] 13 U/L Critically low 15-37 [facility] Comment on above: Performed By: #### C BC #### [facility] [address] [address] [address] Babar Marks Bilirubin [Mass/Vol] 0.3 mg/dL Normal 0.2-1.0 [facility] Comment on above: Performed By: #### C BC #### [facility] [address] [place] [address] Dr. Babar Marks Calcium [Mass/Vol] 8.6 mg/dL Normal 8.5-10.1 [facility] Comment on above: Performed By: #### C BC #### [facility] [address] [address] [address] Babar Marks Chloride [Moles/Vol] 107 mmol/L Normal 98-107 [facility] Comment on above: Performed By: #### C BC #### [facility] [address] [place] [address] Dr. Babar Marks CO2 [Moles/Vol] 29.5 mmol/L Normal 21.0-32.0 [facility] Comment on above: Performed By: #### C BC #### [facility] [address] [address] [address] Babar Marks Creatinine [Mass/Vol] 0.71 mg/dL Normal 0.55-1.02 [facility] Comment on above: Performed By: #### C BC #### [facility] [address] [address] [address] Babar Marks EGFR-AF SWISS >60 Normal >=60 [facility] Comment on above: Performed By: #### C BC #### [facility] [address] [place] [address] Dr. Babar Marks EGFR-NON AF SWISS >60 Normal >=60 [facility] Comment on above: Performed By: #### C BC #### [facility] [address] [place] [address] Dr. Babar Marks Globulin (S) [Mass/Vol] 4.0 g/dL Normal [facility] Comment on above: Performed By: #### C BC #### [facility] [address] [address] [address] Babar Marks Glucose [Mass/Vol] 81 mg/dL Normal 74-106 [facility] Comment on above: Performed By: #### C BC #### [facility] [address] [place] [address] Dr. Babar Marks Potassium [Moles/Vol] 3.5 mmol/L Normal 3.5-5.1 [facility] Comment on above: Performed By: #### C BC #### [facility] [address] [place] [address] Dr. Babar Marks Protein [Mass/Vol] 7.3 g/dL Normal 6.4-8.2 [facility] Comment on above: Performed By: #### C BC #### [facility] [address] [place] [address] Dr. Babar Marks Sodium [Moles/Vol] 144 mmol/L Normal 136-145 [facility] Comment on above: Performed By: #### C BC #### [facility] [address] [place] [address] Dr. Babar Marks Urea nitrogen [Mass/Vol] 14.0 mg/dL Normal 7.0-18.0 [facility] Comment on above: Performed By: #### C BC #### [facility] [address] [place] [address] Dr. Babar Marks Urea nitrogen/Creatinine [Mass ratio] 19.7 mg/mg Normal [facility] Comment on above: Performed By: #### C BC #### [facility] [address] [place] [address] Dr. Babar Marks XR ABD FLAT UP_PA [...] YESENIA ARRIOLA Date: 2022-07-30 18:11 Normal [facility] PAP ACOG PANEL 2: 30 to 65on 03-18-2022 . . Normal [facility] Comment on above: Result Comment: Perf ormed at: WB Performed By: #### [id number] #### [facility] [address] [address] [address] Babar Marks Age Gdln ACOG Testing 30-65 Normal [facility] Comment on above: Performed By: #### [id number] #### [facility] [address] [address] [address] Babar Marks DIAGNOSIS: Comment Normal [facility] Comment on above: Result Comment: NEGA TIVE FOR INTRAEPITHELIAL LESION OR MALIGNANCY. Performed at: WB Performed By: #### [id number] #### [facility] [address] [address] [address] Babar Marks HPV Aptima Positive Abnormal Negative [facility] Comment on above: Result Comment: This nucleic acid amplification test detects fourteen high-risk HPV types (16,18,31,33,35,39,45,51,52,56,58,59,66,68) without differentiation. Performed at: =G Performed By: #### [id number] #### [facility] [address] [place] [address] Dr. Babar Marks HPV Genotype 16 Negative Normal Negative [facility] Comment on above: Result Comment: Perf ormed at: =G Performed By: #### [id number] #### [facility] [address] [place] [address] Dr. Babar Marks HPV Genotype 18,45 Negative Normal Negative [facility] Comment on above: Result Comment: Perf ormed at: =G Performed By: #### [id number] #### [facility] [address] [place] [address] Dr. Babar Marks Methodology: Comment Normal [facility] Comment on above: Result Comment: This liquid based ThinPrep(R) pap test was screened with the use of an image guided system. Performed at: WB Performed By: #### [id number] #### [facility] [address] [place] [address] Dr. Babar Marks Note: Comment Normal [facility] Comment on above: Result Comment: The Pap smear is a screening test designed to aid in the detection of premalignant and malignant conditions of the uterine cervix. It is not a diagnostic procedure and should not be used as the sole means of detecting cervical cancer. Both false-positive and false-negative reports do occur. . Performed at: WB Performed By: #### [id number] #### [facility] [address] [place] [address] Dr. Babar Marks Performed by: Comment Normal [facility] Comment on above: Result Comment: Marry Billy Member Services Coordinator (ASCP) Performed at: WB Performed By: #### [id number] #### [facility] [address] [place] [address] Dr. Babar Marks Specimen adequacy: Comment Normal [facility] Comment on above: Result Comment: Sati sfactory for evaluation. Endocervical and/or squamous metaplastic cells (endocervical component) are present. Performed at: WB Performed By: #### [id number] #### [facility] [address] [place] [address] Dr. Babar Marks CHLAMYDIA/GONOCOCCUS JESS (SW AB/URINE/PAPon 03-14-2022 Chlamydia trachomatis, JESS Negative Normal Negative [facility] Comment on above: Performed By: #### C T/NGNA #### [facility] [address] [place] [address] Dr. Babar Marks Neisseria gonorrhoeae, JESS Negative Normal Negative [facility] Comment on above: Performed By: #### C T/NGNA #### [facility] [address] [address] [address] Babar Marks VAGINITIS/VAGINOSIS DNA PROB Tam 03-14-2022 Kelsey species Negative Normal Negative [facility] Comment on above: Performed By: #### V AGINT #### [facility] [address] [place] [address] Dr. Babar Marks Gardnerella vaginalis Negative Normal Negative [facility] Comment on above: Performed By: #### V AGINT #### [facility] [address] [place] [address] Dr. Babar Marks Trichomonas vaginalis Negative Normal Negative [facility] Comment on above: Performed By: #### V AGINT #### [facility] [address] [place] [address] Dr. Babar Marks XR CHEST 2 Von 11-23-2021 XR CHEST 2 V EXAM: XR CHEST 2 V COMPARISON: 02/06/2017 CLINICAL INDICATION: Cough. FINDINGS: The cardiomediastinal silhouette is within normal limits. No focal consolidation. No pleural effusion. No pneumothorax. IMPRESSION: No radiographic evidence of acute cardiopulmonary abnormality. Electronically authenticated by: DANIELA ZENG Date: 2021-11-23 17:05 Normal [facility] Discharge Summaryon 02-08-20 17 HIM IP Note OR Odd Piece Checker Normal [facility] Drug Scr, Abuse, Uron 2016 Amphetamine(s),Ur Negative Normal NEG [facility] Comment on above: Result Comment: (Pos itive cutoff 1000 ng/mL) Performed By: #### U AMIC, MARLEEN ####[id number] [place] [address] Barbiturate(s),Ur Negative Normal NEG [facility] Comment on above: Result Comment: (Pos itive cutoff 200 ng/mL) Performed By: #### U AMIC, MARLEEN ####[address] [address] Base excess Negative Normal NEG [facility] Comment on above: Result Comment: (Pos itive cutoff 300 ng/mL) Performed By: #### U AMIC, MARLEEN ####[address] [address] Benzodiazepine(s) Negative Normal NEG [facility] Comment on above: Result Comment: (Pos itive cutoff 200 ng/mL) Performed By: #### U AMIC, MARLEEN ####[address] [address] Cannabinoid(s),Ur Negative Normal NEG [facility] Comment on above: Result Comment: (Pos itive cutoff 50 ng/mL) Performed By: #### U AMIC, MARLEEN ####[address] [address] Interpretive Info Assay provides medic al screening only. The absence of expected drug(s) and/or Normal [facility] Comment on above: Result Comment: meta bolite(s) may indicate diluted or adulterated urine, limitations of testing or timing of collection.Testing for legal purposes should be confirmed by another method. To request confirmation of test result, please call the lab within 7 days of sample submission.[email or web address] [address] [place] [id number] Performed By: #### U AMIC, MARLENE ####[address] [address] Opiate(s), Ur Positive Abnormal NEG [facility] Comment on above: Result Comment: (Pos itive cutoff 300 ng/mL) Performed By: #### U AMIC, MARLEEN ####[address] [address] Oxycodone, Urine Negative Normal NEG [facility] Comment on above: Result Comment: (Pos itive cutoff 100 ng/mL) Performed By: #### U AMIC, MARLEEN ####[facility] [address] [place] [address] Phencyclidine, Ur Negative Normal NEG [facility] Comment on above: Result Comment: (Pos itive cutoff 25 ng/mL) Performed By: #### U AMIC, MARLEEN ####[facility] [address] [place] [address] Urine, methadone presence Negative Normal NEG [facility] Comment on above: Result Comment: (Pos itive cutoff 300 ng/mL) Performed By: #### U AMIC, MARLEEN ####[facility] [id number] [place] [address] Buprenorphrine, Ur NOT REPORTED Normal NEG [facility] Comment on above: Performed By: #### U AMIC, MARLEEN ####[facility] [address] [place] [address] MDMA, Urine NOT REPORTED Normal NEG [facility] Comment on above: Performed By: #### U AMIC, MARLEEN ####[facility] [address] [place] [address] Methamphetamine, Ur NOT REPORTED Normal NEG [facility] Comment on above: Performed By: #### U AMIC, MARLEEN ####[facility] [address] [place] [address] Propoxyphene,Urine NOT REPORTED Normal NEG [facility] Comment on above: Performed By: #### U AMIC, MARLEEN ####[facility] [address] [place] [address] Urine, tricyclic antidepressants NOT REPORTED Normal NEG [facility] Comment on above: Performed By: #### U AMIC, MARLEEN ####[address] [address] ED Noteon 02-07-2017 HIM IP Note OR Odd Piece Checker Normal [facility] HIM IP Note OR Odd Piece Checker Normal [facility] ED Provider Noteon 7 HIM IP Note OR Odd Piece Checker Normal [facility] Ethanol Alcoholon 02-07-2017 Ethanol mg/dL Normal <10 [facility] Comment on above: Performed By: #### A LCB ####[address] [address] Ethanol percent <0.010 Normal [facility] Comment on above: Result Comment: [id number] [place] [address] Performed By: #### A LCB ####[address] [address] History and Physicalon 02-07 HIM IP Note OR Odd Piece Checker Normal [facility] UA w reflex C&Son 02-07-2017 Reflex Culture? URINE CULTURE REFLEXED Normal [facility] Comment on above: Performed By: #### P T/INR, PTT ####[address] [place] [address] Urine, crystals in sediment NONE SEEN Normal NONE SEEN [facility] Comment on above: Performed By: #### P T/INR, PTT ####[address] [place] [address] Urine, bacteria in sediment Negative Normal [facility] Comment on above: Performed By: #### P T/INR, PTT ####[address] [place] [address] Urine, mucus presence in sediment Negative Normal NEGATIVE [facility] Comment on above: Performed By: #### P T/INR, PTT ####[address] [place] [address] Urine, casts in sediment NONE SEEN Normal NONE SEEN [facility] Comment on above: Performed By: #### P T/INR, PTT ####[address] [place] [address] Urine, epithelial cells in sediment Negative Normal NEGATIVE [facility] Comment on above: Performed By: #### P T/INR, PTT ####[address] [place] [address] Erythrocytes (RBC) 0-4/HPF Normal NONE SEEN [facility] Comment on above: Performed By: #### P T/INR, PTT ####[address] [place] [address] WBC (Leukocytes) NONE SEEN Normal NONE SEEN [facility] Comment on above: Performed By: #### P T/INR, PTT ####[address] [place] [address] Urine, leukocyte esterase presence Negative Normal NEGATIVE [facility] Comment on above: Performed By: #### P T/INR, PTT ####[address] [place] [address] Urine, nitrite presence Negative Normal NEGATIVE [facility] Comment on above: Performed By: #### P T/INR, PTT ####[address] [place] [address] Urobilinogen, Dipstick 0.2 Normal 0.2 - 1.0 [facility] Comment on above: Performed By: #### P T/INR, PTT ####[address] [place] [address] Protein, Qual Negative Normal NEGATIVE [facility] Comment on above: Performed By: #### P T/INR, PTT ####[address] [place] [address] Urine, pH 7.0 [pH] Normal 5.0 - 9.0 [facility] Comment on above: Performed By: #### P T/INR, PTT ####[address] [place] [address] Blood, Dipstick TRACE Abnormal NEGATIVE [facility] Comment on above: Performed By: #### P T/INR, PTT ####[address] [place] [address] Urine, specific gravity 1.015 Normal 1.005 - 1.030 [facility] Comment on above: Performed By: #### P T/INR, PTT ####[address] [place] [address] Ketone, Dipstick Negative Normal NEGATIVE [facility] Comment on above: Performed By: #### P T/INR, PTT ####[address] [place] [address] Bilirubin (direct) Negative Normal NEGATIVE [facility] Comment on above: Performed By: #### P T/INR, PTT ####[address] [place] [address] Glucose mass conc Negative Normal NEGATIVE [facility] Comment on above: Performed By: #### P T/INR, PTT ####[address] [place] [address] Urine, character CLEAR Normal CLEAR [facility] Comment on above: Performed By: #### P T/INR, PTT ####[address] [place] [address] Urine, color YELLOW Normal [facility] Comment on above: Performed By: #### P T/INR, PTT ####[facility] [place], [place] [id number] Urinalysis w/ Microon 2016 ----- Normal [facility] Comment on above: Performed By: #### U AMIC, MARLEEN ####[facility] [id number] [place] [address] Acetaminophen mass conc Negative Normal NEG [facility] Comment on above: Performed By: #### U AMIC, MARLEEN ####[address] [address] Bilirubin (direct) Negative Normal NEG [facility] Comment on above: Performed By: #### U AMIC, MARLEEN ####[facility] [id number] [place] [address] Hemoglobin mass conc (Bld) LARGE Abnormal NEG [facility] Comment on above: Performed By: #### U AMIC, MARLEEN ####[address] [address] Nitrite,Ur Negative Normal NEG [facility] Comment on above: Performed By: #### U AMIC, MARLEEN ####[address] [address] Turbidity CLEAR Normal CLEAR [facility] Comment on above: Performed By: #### U AMIC, MARLEEN ####[facility] [id number] [place] [address] Urine WBC's 0 TO 2 Normal 0-5 [facility] Comment on above: Performed By: #### U AMIC, MARLEEN ####[address] [address] Urine, casts in sediment 0 TO 2 HYALINE Normal 0-8 [facility] Comment on above: Result Comment: Refe rence range defined for non-centrifuged specimen. Performed By: #### U AMIC, MARLEEN ####[address] [address] Urine, color YELLOW Normal YEL [facility] Comment on above: Performed By: #### U AMIC, MARLEEN ####[address] [address] Urine, epithelial cells in sediment 0 TO 2 Normal 0-5 [facility] Comment on above: Result Comment: [address] [address] Performed By: #### U AMIC, MARLEEN ####[address] [address] Urine, erythrocytes 2 TO 5 Normal 0-4 [facility] Comment on above: Result Comment: Refe rence range defined for non-centrifuged specimen. Performed By: #### U AMIC, MARLEEN ####[address] [address] Urine, glucose presence Negative Normal NEG [facility] Comment on above: Performed By: #### U AMIC, MARLEEN ####[address] [address] Urine, leukocyte esterase presence Negative Normal NEG [facility] Comment on above: Performed By: #### U AMIC, MARLEEN ####[address] [address] Urine, pH 6.0 [pH] Normal 5.0-8.0 [facility] Comment on above: Performed By: #### U AMIC, MARLEEN ####[address] [address] Urine, protein presence Negative Normal NEG [facility] Comment on above: Performed By: #### U AMIC, MARLEEN ####[id number] [place] [address] Urine, specific gravity 1.013 Normal 1.005-1.030 [facility] Comment on above: Performed By: #### U AMIC, MARLEEN ####[address] [address] Urobilinogen,Ur Normal Normal NORM [facility] Comment on above: Performed By: #### U AMIC, MARLEEN ####[address] [address] Epithelial, Renal NOT REPORTED Normal 0 [facility] Comment on above: Performed By: #### U AMIC, MARLEEN ####[address] [address] Mucus Strands NOT REPORTED Normal NONE [facility] Comment on above: Performed By: #### U AMIC, MARLEEN ####[address] [address] Other Observations NOT REPORTED Normal NREQ [facility] Comment on above: Performed By: #### U AMIC, MARLEEN ####[address] [address] Trichomonas NOT REPORTED Normal NONE [facility] Comment on above: Performed By: #### U AMIC, MARLEEN ####[facility] [address] [place] [address] Urine, amorphous sediment presence in sediment NOT REPORTED Normal NONE [facility] Comment on above: Performed By: #### U AMIC, MARLEEN ####[facility] [address] [place] [address] Urine, bacteria in sediment NOT REPORTED Normal NONE [facility] Comment on above: Performed By: #### U AMIC, MARLEEN ####[address] [place] [address] Urine, crystals in sediment NOT REPORTED Normal NONE [facility] Comment on above: Performed By: #### U AMIC, MARLEEN ####[address] [place] [address] Urine, yeast presence in sediment NOT REPORTED Normal NONE [facility] Comment on above: Performed By: #### U AMIC, MARLEEN ####[address] [place] [address] XR CHEST PA OR AP (1 VIEW)on [...] injury.Report electronically signed by: Dr. Chilo Fernandez [facility] XR SHOULDER RTon 02-07-2017 XR SHOULDER [...] by: Dr. Chilo Fernandez Normal [facility] APTTon 02-06-2017 aPTT 29.1 s Normal 23.0 - 37.0 [facility] Comment on above: Performed By: #### P T/INR, PTT ####[address] [place] [address] Basic Metabolic Panelon 01-23 eGFR (non-black) 108.65 Normal [facility] Comment on above: Result Comment: eGFR Interpretation:Normal: Equal to or greater than 60 mL/min/1.73 meters squaredChronic Kidney Disease: Less than 60 mL/min/1.73 meters squaredKidney Failure: Less than 15 mL/min/1.73 meters squared Performed By: #### B MP, LIVER PROFILE ####[address] [place] [address] eGFR (non-black) 114.39 Normal [facility] Comment on above: Result Comment: eGFR Interpretation:Normal: Equal to or greater than 60 mL/min/1.73 meters squaredChronic Kidney Disease: Less than 60 mL/min/1.73 meters squaredKidney Failure: Less than 15 mL/min/1.73 meters squared Performed By: #### B MP, LIVER PROFILE ####[address] [place] [address] eGFR (non-black) 108.1 Normal [facility] Comment on above: Result Comment: eGFR Interpretation:Normal: Equal to or greater than 60 mL/min/1.73 meters squaredChronic Kidney Disease: Less than 60 mL/min/1.73 meters squaredKidney Failure: Less than 15 mL/min/1.73 meters squared Performed By: #### B MP, LIVER PROFILE ####[address] [place] [address] eGFR (non-black) 81.88 Normal [facility] Comment on above: Result Comment: eGFR Interpretation:Normal: Equal to or greater than 60 mL/min/1.73 meters squaredChronic Kidney Disease: Less than 60 mL/min/1.73 meters squaredKidney Failure: Less than 15 mL/min/1.73 meters squared Performed By: #### B MP, LIVER PROFILE ####[address] [place] [address] eGFR (non-black) 125.60 Normal [facility] Comment on above: Performed By: #### B MP, LIVER PROFILE ####[address] [place] [address] eGFR (non-black) 132.24 Normal [facility] Comment on above: Performed By: #### B MP, LIVER PROFILE ####[address] [place] [address] eGFR (non-black) 124.64 Normal [facility] Comment on above: Performed By: #### B MP, LIVER PROFILE ####[address] [place] [address] eGFR (non-black) 94.39 Normal [facility] Comment on above: Performed By: #### B MP, LIVER PROFILE ####[address] [place] [address] Age 26 year(s) Normal [facility] Comment on above: Performed By: #### B MP, LIVER PROFILE ####[address] [place] [address] Calcium 10.1 mg/dL Normal 8.4 - 10.2 [facility] Comment on above: Performed By: #### B MP, LIVER PROFILE ####[address] [place] [address] Chloride 103 mmol/L Normal 98 - 107 [facility] Comment on above: Performed By: #### B MP, LIVER PROFILE ####[address] [place] [address] CO2 25 mmol/L Normal 22 - 32 [facility] Comment on above: Performed By: #### B MP, LIVER PROFILE ####[address] [place] [address] Creatinine 0.96 mg/dL Normal 0.52 - 1.04 [facility] Comment on above: Performed By: #### B MP, LIVER PROFILE ####[address] [place] [address] Glucose mass conc 126 mg/dL High 65 - 100 [facility] Comment on above: Performed By: #### B MP, LIVER PROFILE ####[address] [place] [address] Potassium molar conc 3.9 mmol/L Normal 3.6 - 5.0 [facility] Comment on above: Performed By: #### B MP, LIVER PROFILE ####[address] [place] [address] Sodium 139 mmol/L Normal 135 - 145 [facility] Comment on above: Performed By: #### B MP, LIVER PROFILE ####[address] [place] [address] Urea nitrogen 20 mg/dL High 7 - 17 [facility] Comment on above: Performed By: #### B MP, LIVER PROFILE ####[address] [place] [address] CBC W Auto Differentialon Abs Neut # 9.0 10 X 3/mm High 1.8 - 7.7 [facility] Comment on above: Performed By: #### C BC Auto Diff ####[address] [place] [address] Basophils/100 WBC Auto (Bld) 1 % High 0 - 1 [facility] Comment on above: Performed By: #### C BC Auto Diff ####[address] [place] [address] Eosinophils 0.1 10 X 3/mm Normal 0.0 - 0.5 [facility] Comment on above: Performed By: #### C BC Auto Diff ####[address] [place] [address] Eosinophils/100 leukocytes 1 % Normal 0 - 5 [facility] Comment on above: Performed By: #### C BC Auto Diff ####[address] [place] [address] Erythrocyte distribution width Auto Ratio (RBC) 15.1 % High 11.5 - 14.5 [facility] Comment on above: Performed By: #### C BC Auto Diff ####[address] [place] [address] Erythrocytes (RBC) 4.28 10 X 6/mm Normal 4.20 - 5.40 [facility] Comment on above: Performed By: #### C BC Auto Diff ####[address] [place] [address] Hematocrit (HCT) 36.3 % Normal 36.0 - 47.0 [facility] Comment on above: Performed By: #### C BC Auto Diff ####[address] [place] [address] Hemoglobin mass conc (Bld) 12.4 g/dL Normal 12.0 - 16.0 [facility] Comment on above: Performed By: #### C BC Auto Diff ####[address] [place] [address] Lymphocytes 2.3 10 X 3/mm Normal 1.0 - 4.0 [facility] Comment on above: Performed By: #### C BC Auto Diff ####[address] [place] [address] Lymphocytes/100 leukocytes 19 % Low 20 - 40 [facility] Comment on above: Performed By: #### C BC Auto Diff ####[address] [place] [address] MCH 29.0 pg Normal 27.0 - 35.0 [facility] Comment on above: Performed By: #### C BC Auto Diff ####[address] [place] [address] MCHC mass conc (RBC) 34.2 g/dL Normal 32.0 - 36.0 [facility] Comment on above: Performed By: #### C BC Auto Diff ####[address] [place] [address] MCV 84.9 fL Normal 80.0 - 100.0 [facility] Comment on above: Performed By: #### C BC Auto Diff ####[address] [place] [address] Monocytes/100 leukocytes 6 % Normal 1 - 15 [facility] Comment on above: Performed By: #### C BC Auto Diff ####[address] [place] [address] Neutrophils/100 WBC Auto (Bld) 74 % High 50 - 70 [facility] Comment on above: Performed By: #### C BC Auto Diff ####[address] [place] [address] Platelet mean volume (PMV) 8.0 fL Normal 7.5 - 11.5 [facility] Comment on above: Performed By: #### C BC Auto Diff ####[address] [place] [address] Platelets 454 uLx10 High 150 - 450 [facility] Comment on above: Performed By: #### C BC Auto Diff ####[address] [place] [address] WBC (Leukocytes) 12.2 10 X 3/mm High 3.7 - 11.0 [facility] Comment on above: Performed By: #### C BC Auto Diff ####[address] [place] [address] CT BRAIN WOon 02-06-2017 Thyroid stimulating hormone [...] effectReport electronically signed by: Dr. Zaire Babcock [facility] CT CERVICAL SPINE WOon 02-06 CT [...] indicated.Report electronically signed by: Dr. Mahamed King [facility] CT SINUS/FACIAL WOon 017 CT SINUS/FACIAL [...] electronically signed by: Dr. Hal Ayoub Normal [facility] Hepatic Function Panelon Alanine aminotransferase (ALT) 30 U/L Normal 7 - 52 [facility] Comment on above: Performed By: #### B MP, LIVER PROFILE ####[address] [place] [address] Albumin 3.8 g/dL Normal 3.5 - 5.0 [facility] Comment on above: Performed By: #### B MP, LIVER PROFILE ####[address] [place] [address] Alkaline phosphatase (ALP) 63 U/L Normal 38 - 126 [facility] Comment on above: Performed By: #### B MP, LIVER PROFILE ####[address] [place] [address] Aspartate aminotransferase (AST) 22 U/L Normal 14 - 36 [facility] Comment on above: Performed By: #### B MP, LIVER PROFILE ####[address] [place] [address] Bilirubin (direct) 0.0 mg/dL Normal 0.0 - 0.2 [facility] Comment on above: Performed By: #### B MP, LIVER PROFILE ####[address] [place] [address] Bilirubin (total) 0.8 mg/dL Normal 0.2 - 1.3 [facility] Comment on above: Performed By: #### B MP, LIVER PROFILE ####[address] [place] [address] Protein 6.9 g/dL Normal 6.3 - 8.2 [facility] Comment on above: Performed By: #### B MP, LIVER PROFILE ####[address] [place] [address] PT/INRon 02-06-2017 INR Coag RelTime (Bld) See Comments Normal [facility] Comment on above: Result Comment: [address] mmended [...] 2.5-3.5 Performed By: #### P T/INR, PTT ####[address] [address] INR Coag RelTime (PPP) 0.94 Normal 0.90 - 1.10 [facility] Comment on above: Performed By: #### P T/INR, PTT ####[address] [address] Prothrombin time (PT) Coag time (PPP) 12.6 s Normal [facility] Comment on above: Performed By: #### P T/INR, PTT ####[address] [address] Troponin I, Extra Sensitiveo n 02-06-2017 Troponin I.cardiac mass conc ng/mL Normal 0.000 - 0.034 [facility] Comment on above: Result Comment: Limi t of Detection: <0.012 ng/mLAt Risk of Myocardial Damage: 0.012-0.034 ng/mLProbable Myocardial Damage: >0.034 ng/mL Performed By: #### T ROPONIN I ####[address] [address] hCG, Qualitative-Serumon Internal Control ACCEPTABLE Normal [facility] Comment on above: Performed By: #### H CG,QUAL SERUM ####[facility] [place] [address] hCG, Qualitative-Serum Negative Normal NEGATIVE [facility] Comment on above: Performed By: #### H CG,QUAL SERUM ####[address] [place] [place], [place] [id number] Vital Signs Date Time Vital Sign Value Performing Clinician Facility 02-05-2025 08:26-0400 Body mass index (BMI) [Ratio] 34.53 kg/m2 Eric Elayne DO Work Phone: [facility] 02-05-2025 08:26-0400 Body weight 94.12 kg Eric Elayne DO Work Phone: [facility] 02-05-2025 08:26-0400 Diastolic blood pressure 78 mm[Hg] Eric Elayne DO Work Phone: [facility] 02-05-2025 08:26-0400 Systolic blood pressure 122 mm[Hg] Eric Elayne DO Work Phone: [facility] 01-29-2025 10:01-0400 Body mass index (BMI) [Ratio] 34.63 kg/m2 Eric Elayne DO Work Phone: [facility] 01-29-2025 10:01-0400 Body weight 94.4 kg Eric Elayne DO Work Phone: [facility] 01-29-2025 10:01-0400 Diastolic blood pressure 70 mm[Hg] Eric Elayne DO Work Phone: [facility] 01-29-2025 10:01-0400 Systolic blood pressure 110 mm[Hg] Eric Elayne DO Work Phone: [facility] 01-22-2025 14:02-0400 Body mass index (BMI) [Ratio] 34.58 kg/m2 Eric Elayne DO Work Phone: [facility] 01-22-2025 14:02-0400 Body weight 94.26 kg Eric Elayne DO Work Phone: [facility] 01-22-2025 14:02-0400 Diastolic blood pressure 70 mm[Hg] Eric Elayne DO Work Phone: [facility] 01-22-2025 14:02-0400 Systolic blood pressure 116 mm[Hg] Eric Elayne DO Work Phone: [facility] 01-09-2025 13:45-0400 Body mass index (BMI) [Ratio] 34.11 kg/m2 Eric Elayne DO Work Phone: [facility] 01-09-2025 13:45-0400 Body weight 92.99 kg Eric Elayne DO Work Phone: [facility] 01-09-2025 13:45-0400 Diastolic blood pressure 78 mm[Hg] Eric Elayne DO Work Phone: [facility] 01-09-2025 13:45-0400 Systolic blood pressure 118 mm[Hg] Eric Elayne DO Work Phone: [facility] 12-25-2024 14:28-0400 Body mass index (BMI) [Ratio] 33.91 kg/m2 Eric Elayne DO Work Phone: [facility] 12-25-2024 14:28-0400 Body weight 92.42 kg Eric Elayne DO Work Phone: [facility] 12-25-2024 14:28-0400 Diastolic blood pressure 80 mm[Hg] Eric Elayne DO Work Phone: [facility] 12-25-2024 14:28-0400 Systolic blood pressure 110 mm[Hg] Eric Elayne DO Work Phone: [facility] 12-13-2024 14:59-0400 Body mass index (BMI) [Ratio] 34.78 kg/m2 Eric Elayne DO Work Phone: [facility] 12-13-2024 14:59-0400 Body weight 94.8 kg Eric Elayne DO Work Phone: [facility] 12-13-2024 14:59-0400 Diastolic blood pressure 78 mm[Hg] Eric Elayne DO Work Phone: [facility] 12-13-2024 14:59-0400 Systolic blood pressure 120 mm[Hg] Eric Elayne DO Work Phone: [facility] 11-28-2024 14:25-0400 Body mass index (BMI) [Ratio] 34.61 kg/m2 Eric Elayne DO Work Phone: [facility] 11-28-2024 14:25-0400 Body weight 94.35 kg Eric Elayne DO Work Phone: [facility] 11-28-2024 14:25-0400 Diastolic blood pressure 76 mm[Hg] Eric Elayne DO Work Phone: [facility] 11-28-2024 14:25-0400 Systolic blood pressure 120 mm[Hg] Eric Elayne DO Work Phone: [facility] 11-07-2024 13:37-0400 Body mass index (BMI) [Ratio] 35.11 kg/m2 Eric Elayne DO Work Phone: [facility] 11-07-2024 13:37-0400 Body weight 95.71 kg Eric Elayne DO Work Phone: [facility] 11-07-2024 13:37-0400 Diastolic blood pressure 72 mm[Hg] Eric Elayne DO Work Phone: [facility] 11-07-2024 13:37-0400 Systolic blood pressure 122 mm[Hg] Eric Elayne DO Work Phone: [facility] 09-18-2024 13:47-0500 Body mass index (BMI) [Ratio] 31.92 kg/m2 Loraine OLIVO Work Phone: [facility] 09-18-2024 13:47-0500 Body weight 87 kg Loraine OLIVO Work Phone: [facility] 09-18-2024 13:47-0500 Diastolic blood pressure 76 mm[Hg] Loraine OLIVO Work Phone: [facility] 09-18-2024 13:47-0500 Systolic blood pressure 116 mm[Hg] Loraine OLIVO Work Phone: [facility] 09-08-2024 15:52-0500 Body height 165.1 cm [facility] 09-08-2024 15:52-0500 Body mass index (BMI) [Ratio] 58.6 kg/m2 [facility] 09-08-2024 15:52-0500 Body temperature 98.9 [degF] [facility] 09-08-2024 15:52-0500 Body weight 160 kg [facility] 09-08-2024 15:52-0500 Diastolic blood pressure 78 mm[Hg] [facility] 09-08-2024 15:52-0500 Heart rate 105 /min [facility] 09-08-2024 15:52-0500 Respiratory rate 18 /min [facility] 09-08-2024 15:52-0500 SaO2% (BldA) [Mass fraction] 97 % [facility] 09-08-2024 15:52-0500 Systolic blood pressure 120 mm[Hg] [facility] 08-21-2024 13:18-0500 Body mass index (BMI) [Ratio] 31.12 kg/m2 Eric Elayne DO Work Phone: [facility] 08-21-2024 13:18-0500 Body weight 84.82 kg Eric Elayne DO Work Phone: [facility] 08-21-2024 13:18-0500 Diastolic blood pressure 70 mm[Hg] Eric Elayne DO Work Phone: [facility] 08-21-2024 13:18-0500 Systolic blood pressure 120 mm[Hg] Eric Elayne DO Work Phone: [facility] 07-21-2024 11:10-0500 Body mass index (BMI) [Ratio] 29.45 kg/m2 [facility] Nurse [facility] 07-21-2024 11:10-0500 Body weight 80.29 kg [facility] Nurse [facility] 07-21-2024 11:10-0500 Diastolic blood pressure 76 mm[Hg] [facility] Nurse [facility] 07-21-2024 11:10-0500 Systolic blood pressure 124 mm[Hg] [facility] Nurse [facility] 06-08-2024 10:32-0500 Body height 165.1 cm [facility] 06-08-2024 10:32-0500 Body mass index (BMI) [Ratio] 29.1 kg/m2 [facility] 06-08-2024 10:32-0500 Body temperature 97.5 [degF] [facility] 06-08-2024 10:32-0500 Body weight 79.37 kg [facility] 06-08-2024 10:32-0500 Diastolic blood pressure 89 mm[Hg] [facility] 06-08-2024 10:32-0500 Heart rate 93 /min [facility] 06-08-2024 10:32-0500 Respiratory rate 18 /min [facility] 06-08-2024 10:32-0500 SaO2% (BldA) [Mass fraction] 98 % [facility] 06-08-2024 10:32-0500 Systolic blood pressure 130 mm[Hg] [facility] 04-21-2024 13:40-0400 Body height 165.1 cm [facility] 04-21-2024 13:40-0400 Body mass index (BMI) [Ratio] 28.1 kg/m2 [facility] 04-21-2024 13:40-0400 Body temperature 99.4 [degF] [facility] 04-21-2024 13:40-0400 Body weight 76.82 kg [facility] 04-21-2024 13:40-0400 Diastolic blood pressure 84 mm[Hg] [facility] 04-21-2024 13:40-0400 Heart rate 85 /min [facility] 04-21-2024 13:40-0400 Respiratory rate 18 /min [facility] 04-21-2024 13:40-0400 SaO2% (BldA) [Mass fraction] 99 % [facility] 04-21-2024 13:40-0400 Systolic blood pressure 126 mm[Hg] [facility] 12-22-2023 18:07-0400 Body height 165.1 cm [facility] 12-22-2023 18:07-0400 Body mass index (BMI) [Ratio] 27.8 kg/m2 [facility] 12-22-2023 18:07-0400 Body temperature 98.7 [degF] [facility] 12-22-2023 18:07-0400 Body weight 75.74 kg [facility] 12-22-2023 18:07-0400 Heart rate 84 /min [facility] 12-22-2023 18:07-0400 Respiratory rate 18 /min [facility] 12-22-2023 18:07-0400 SaO2% (BldA) [Mass fraction] 99 % [facility] Encounters Encounter Date Encounter Type Care Provider Facility Start: 02-08-2025 End: 02-08-2025 Clinisync Result Encounter Eric Elayne DO Work Phone: [facility] External Department Unsolicited Start: 02-08-2025 End: 02-08-2025 Clinisync Result Encounter Eric Elayne DO Work Phone: [facility] External Department Unsolicited Start: 02-06-2025 End: 02-06-2025 Clinisync Result Encounter Eric Elayne DO Work Phone: [facility] External Department Unsolicited Start: 02-06-2025 End: 02-06-2025 Clinisync Result Encounter Eric Elayne DO Work Phone: [facility] External Department Unsolicited Start: 02-05-2025 End: 02-05-2025 Bamboo flowsheet Eric Elayne DO Work Phone: [facility] Start: 02-05-2025 End: 02-05-2025 Bamboo flowsheet Eric Elayne DO Work Phone: [facility] Start: 02-05-2025 End: 02-05-2025 ambulatory ERIC ELAYNE Not Available Start: 02-05-2025 End: 02-05-2025 Office outpatient visit 15 minutes Eric Elayne DO Work Phone: [facility] Comment on above: Third trimester preg chester ([facility]); 38 weeks gestation of ([facility]); Diet controlled gestational diabetes mellitus (GDM), antepartum ([facility]); H/O pre-eclampsia in prior , currently ([facility]); HSV infection Start: 02-01-2025 End: 02-01-2025 Clinisync Result Encounter Eric Elayne DO Work Phone: [facility] External Department Unsolicited Start: 02-01-2025 End: 02-01-2025 Clinisync Result Encounter Eric Elayne DO Work Phone: [facility] External Department Unsolicited Start: 01-29-2025 End: 01-29-2025 Bamboo flowsheet Eric Elayne DO Work Phone: [facility] Start: 01-29-2025 End: 01-29-2025 Bamboo flowsheet Eric Elayne DO Work Phone: [facility] Start: 01-29-2025 End: 01-29-2025 Office outpatient visit 15 minutes Eric Elayne DO Work Phone: [facility] Comment on above: 37 weeks gestation o f ([facility]); Third trimester ([facility]); H/O pre-eclampsia in prior , currently ([facility]); Diet controlled gestational diabetes mellitus (GDM), antepartum ([facility]) Start: 01-29-2025 End: 01-29-2025 ambulatory ERIC [...] Comment on above: Third trimester preg chester ([facility]); 36 weeks gestation of ([facility]) Start: 01-18-2025 End: 01-18-2025 Clinisync Result Encounter [...] Comment on above: Third trimester preg chester ([facility]); 34 weeks gestation of ([facility] [facility] H/O pre-eclampsia in prior , currently ([facility]); Diet controlled gestational diabetes mellitus (GDM), antepartum ([facility]) Start: 01-03-2025 End: 01-03-2025 Clinisync Result [...] End: 12-13-2024 Office outpatient visit 15 minutes Erci Elayne DO Work Phone: [facility] [...] Start: 09-08-2024 End: 09-08-2024 ambulatory [facility] Work Phone: Start: 09-08-2024 End: 09-08-2024 Patient encounter procedure Formerly [facility] Work Phone: Start: 09-06-2024 [...] GA: 10w0d Start: 06-08-2024 End: 06-08-2024 ambulatory [facility] Work Phone: Start: 06-08-2024 End: 06-08-2024 Patient encounter procedure [facility]ly [facility] Work Phone: Start: 04-21-2024 End: 04-21-2024 ambulatory [facility] Work Phone: Start: 04-21-2024 End: 04-21-2024 Patient encounter procedure Formerly [facility] Loc Work Phone: Start: 12-22-2023 End: 12-22-2023 ambulatory [facility] Work Phone: Start: 12-22-2023 End: 12-22-2023 Patient encounter procedure Formerly [facility] Loc Work Phone: Start: 12-01-2022 ambulatory Facility:[facility] Start: 08-24-2022 End: 08-25-[address] MECHE LE Facility:[facility] Start: 08-19-2022 End: 08-19-[address] ERIC HOLLY Facility:[facility] Start: 07-30-2022 End: 07-30-2022 ambulatory LEANDRO VERDUZCO Facility:[facility] Start: 03-11-2022 End: 03-11-[address] ERIC HOLLY Facility:[facility] Start: 11-23-2021 End: 11-23-2021 ambulatory LEANDRO VERDUZCO Facility:[facility] Start: 02-07-2017 End: 02-07-[address] [facility] Start: 02-06-2017 End: 02-07-2017 Emergency department patient visit IBRAHIMA WARE Facility:[facility] Procedures Date Procedure Procedure Detail Performing Clinician Start: 02-08-2025 ALL CBC WITH AUTO DIFF Eric Holly DO Work Phone: Start: 02-06-2025 [facility] CBC WITH PLATEL ET NO DIFFERENTIAL Eric Elayne DO Work Phone: Start: 02-05-2025 Urnls dip stick/tabl et rgnt non-auto w/o micrscp Loraine Hillman PA Work Phone: Start: 02-01-2025 US OB BPP W NON-STRESS [...] Work Phone: Start: 11-16-2024 [facility] UA (CLEAN/CATCH) BUNDLE WRAPPER/MICRO IF IND. Eric Elayne DO Work Phone: [...] [facility] Start: 03-26-2025 Influenza vaccination [facility] Start: 03-21-2025 End: 03-21-2025 ambulatory 03/21/2025 10:50 AM EDT Visit [facility] [address] [place] [id number] Eric Holly, DO [address] [place] [address] [facility] Start: 02-05-2025 End: 02-05-2025 Patient encounter procedure 02/05/2025 8:10 AM EDT Routine [facility] [address] [place] [phone] Eric Holly, DO [address] [place] [address] [facility] Start: 01-29-2025 End: 01-29-2025 Patient encounter procedure [facility] Comment on above: Arrived Start: 01-22-2025 End: 01-22-2026 CULTURE, GROUP B STREP WITH SUSCEPTIBLITY CULTURE, GROUP B STREP WITH SUSCEPTIBLITY Lab Routine Third trimester ([facility]) Expected: 01/22/2025, Expires: 01/22/2026 [facility] Work Phone: Comment on above: Expected: 01/22/2025 , Expires: 01/22/2026 Start: 01-22-2025 End: 01-22-2025 Patient encounter procedure 01/22/2025 1:30 PM EDT Routine [facility] [address] [place] [phone] Eric Holly, DO [address] [place], [place] [id number] [facility] Start: 01-09-2025 End: 01-09-2025 Patient encounter procedure 01/09/2025 1:40 PM EDT Routine [facility] [address] [place] [phone] Eric Holly, DO [address] [place] [address] [facility] Start: 12-25-2024 End: 12-25-2024 Patient encounter procedure 12/25/2024 2:00 PM EDT Routine [facility] [address] [place] [phone] Eric Holly, DO [address] [place] [address] [facility] Start: 12-13-2024 End: 12-13-2024 Patient encounter procedure [facility] Comment on above: Arrived Start: 12-13-2024 End: 06-15-2025 US biophysical profile w non stress test US biophysical profile w non stress test Imaging Routine Gestational diabetes mellitus (GDM), antepartum, gestational diabetes method of control unspecified Expected: 12/13/2024 (Approximate), Expires: 06/15/2025 [facility] Comment on above: Expected: 12/13/2024 (Approximate), Expires: 06/15/2025 Start: 12-13-2024 End: 04-15-2025 US for US OB follow up transabdominal approach Imaging Routine Gestational diabetes mellitus (GDM), antepartum, gestational diabetes method of control unspecified Expected: 12/13/2024, Expires: 04/15/2025 [facility] Work Phone: Comment on above: Expected: 12/13/2024 , Expires: 04/15/2025 Start: 11-28-2024 End: 11-28-2024 Patient encounter procedure 11/28/2024 1:50 PM EDT Routine [facility] [address] [place] [phone] Eric Holly DO [address] [facility] [place] [address] [facility] Start: 11-07-2024 End: 11-07-2025 CBC panel - Blood by Automated count CBC Lab Routine Diabetes mellitus screening Expected: 11/07/2024 (Approximate), Expires: 11/07/2025 [facility] Work Phone: Comment on above: Expected: 11/07/2024 (Approximate), Expires: 11/07/2025 Start: 11-07-2024 End: 11-07-2025 Measurement of glucose 1 hour after glucose challenge for glucose tolerance test Glucose tolerance, 1 hour Lab Routine Diabetes mellitus screening Expected: 11/07/2024 (Approximate), Expires: 11/07/2025 [facility] Comment on above: Expected: 11/07/2024 (Approximate), Expires: 11/07/2025 Start: 11-07-2024 End: 11-07-2024 Patient encounter procedure 11/07/2024 1:20 PM EDT Routine [facility] [address] [place] [address] Eric Holly, DO [address] [place] [address] [facility] Start: 10-16-2024 End: 10-16-2024 Patient encounter procedure 10/16/2024 2:20 PM EDT Routine [facility] [address] [place] [address] Eric Holly, DO [address] [place] [address] [facility] Start: 09-18-2024 End: 03-18-2025 [...] gestational age Expected: 07/21/2024 (Approximate), Expires: 07/21/2025 [facility] Comment on above: Expected: 07/21/2024 (Approximate), Expires: 07/21/2025 Start: 07-21-2024 End: 07-21-2025 Blood type and Indirect antibody screen panel - Blood Type and screen Lab Routine Missed menses , unspecified gestational age Expected: 07/21/2024 (Approximate), Expires: 07/21/2025 [facility] Work Phone: Comment on above: Expected: 07/21/2024 (Approximate), Expires: 07/21/2025 Start: 07-21-2024 End: 07-21-2025 Drugs of abuse panel - Urine by Screen method Rapid drug screen, urine Lab Routine , unspecified gestational age Encounter for supervision of normal first in first trimester Expected: 07/21/2024 (Approximate), Expires: 07/21/2025 [facility] Comment on above: Expected: 07/21/2024 (Approximate), Expires: 07/21/2025 Start: 07-21-2024 End: 07-21-2025 US Pelvis transvaginal US OB transvaginal Imaging Routine Missed menses Expected: 07/21/2024 (Approximate), Expires: 07/21/2025 [facility] Comment on above: Expected: 07/21/2024 (Approximate), Expires: 07/21/2025 Bacteria identified in Urine by Culture Urine culture Microbiology Routine Missed menses Ordered: 07/21/2024 [facility] Comment on above: Ordered: 07/21/2024 CBC W Auto Different ial panel - Blood CBC and differential Lab Routine Missed menses , unspecified gestational age Ordered: 07/21/2024 [facility] Comment on above: Ordered: 07/21/2024 CHLAMYDIA TRACHOMATI S (GENITO/STI) CHLAMYDIA TRACHOMATIS (GENITO/STI) Lab Routine STD exposure Ordered: 09/18/2024 [facility] Comment on above: Ordered: 09/18/2024 Cytology Cervical or vaginal smear or scraping study Pap Smear Pathology and Cytology Routine Well woman exam with routine gynecological exam Ordered: 09/18/2024 [facility] Comment on above: Ordered: 09/18/2024 Hemoglobin A1c/Hemoglobin.total in Blood Hemoglobin A1c Lab Routine Missed menses , unspecified gestational age Ordered: 07/21/2024 [facility] Comment on above: Ordered: 07/21/2024 Hepatitis B virus surface Ag [Presence] in Serum or Plasma by Immunoassay Hepatitis B surface antigen Lab Routine Missed menses , unspecified gestational age Ordered: 07/21/2024 [facility] Comment on above: Ordered: 07/21/2024 Hepatitis C virus Ab [Presence] in Serum or Plasma by Immunoassay Hepatitis C antibody Lab Routine Missed menses , unspecified gestational age Ordered: 07/21/2024 [facility] Comment on above: Ordered: 07/21/2024 HIV-1/HIV-2 antigen/antibody combination immunoassay HIV-1 and HIV-2 antibodies Lab Routine Missed menses , unspecified gestational age Ordered: 07/21/2024 [facility] Comment on above: Ordered: 07/21/2024 Human papilloma viru s DNA [Presence] in Unspecified specimen by Probe with amplification HPV DNA probe, amplified Microbiology Routine Well woman exam with routine gynecological exam Ordered: 09/18/2024 [facility] Comment on above: Ordered: 09/18/2024 Neisseria gonorrhoea e DNA [Presence] in Unspecified specimen by JESS with probe detection Neisseria gonorrhea DNA probe, direct Lab Routine STD exposure Ordered: 09/18/2024 [facility] Comment on above: Ordered: 09/18/2024 Reagin Ab [Presence] in Serum by RPR RPR Lab Routine Missed menses , unspecified gestational age Ordered: 07/21/2024 [facility] Comment on above: Ordered: 07/21/2024 Rubella antibody, IgG Rubella an tibody, IgG Lab Routine Missed menses , unspecified gestational age Ordered: 07/21/2024 [facility] Comment on above: Ordered: 07/21/2024 SURESWAB(R) ADVANCED VAGINITIS PLUS, TMA SURESWAB(R) ADVANCED VAGINITIS PLUS, TMA Pathology and Cytology Routine Vaginal discharge Ordered: 09/18/2024 [facility] Work Phone: Comment on above: Ordered: 09/18/2024 Payers Date Payer Category Payer Medicaid [facility] [place] [id number] 2022 Medicaid [id number] 2019 Unknown [id number] 2017 Unknown 2014 Unknown [id number] 1990 Unknown [id number] [id number] 1990 Unknown [id number] 2.16.840.1.135410.3.579.2.593 1990 Unknown [id number] 2.16.840.1.906311.3.579.2.593 1990 Unknown [id number] 2.16.840.1.634056.3.579.2.593 1990 Unknown [id number] 2.16.840.1.567238.3.579.2.593 1990 Unknown [id number] 2.16.840.1.537421.3.579.2.727 1990 Unknown [id number] 2.16.840.1.446193.3.579.2.1259 1990 Unknown [id number] 2.16.840.1.265795.3.579.2.1259 1990 Unknown [id number] 2.16.840.1.797403.3.579.2.1259 1990 Unknown [id number] 2.16.840.1.809548.3.579.2.9 1990 Unknown [id number] 2.16.840.1.063271.3.579.2.1258 1990 Unknown [id number] 2.16.840.1.672827.3.579.2.1258 1990 Unknown [id number] 2.16.840.1.623189.3.579.2.1258 1990 Unknown [id number] 2.16.840.1.617307.3.579.2.1258 1990 Unknown [id number] 2.16.840.1.572708.3.579.2.1258 1990 Unknown [id number] 2.16.840.1.320959.3.579.2.1258 1990 Unknown [id number] 2.16.840.1.707206.3.579.2.1258 1990 Unknown [id number] 2.16.840.1.366519.3.579.2.9 1959 Unknown [id number] Unknown [facility] [id number] Social History Date Type Detail Facility Start: 03-31-2023 End: 08-11-2023 Tobacco smoking status NHIS Never smoked tobacco (finding) [facility] Start: 1990 Sex Assigned At Female F [facility] Start: 06-08-2024 End: 09-08-2024 Sex Female (finding) [facility] Start: 03-31-2023 Tobacco use and exposure Smokeless tobacco non-user [facility] Start: 07-21-2024 End: 01-29-2025 Alcoholic beverage intake Current drinker of alcohol (finding) [facility] Start: 07-12-2024 History of Social function [facility] Start: 07-12-2024 Tobacco use panel [facility] Start: 03-31-2023 Alcohol Comment Occasional alcohol u se [facility] Start: 05-26-2024 [facility] Start: 04-22-2023 Gender identity Identifies as female gender (finding) [facility] Medical Equipment Procedure Code Equipment Code Equipment Origin al Text Equipment Identifier Dates 1 strip by In Vi tro route Daily Use in the morning prior to breakfast, 1 hour after each meal for a total of 4times daily. [id number] Start: 11-23-2024 End: 12-25-2024 1 each by In Vit ro route Daily Use to check FSBS four times daily [id number] Start: 11-23-2024 End: 12-23-2024 1 strip by In Vi tro route Daily Use in the morning prior to breakfast, 1 hour after each meal for a total of 4times daily. [id number] Start: 12-25-2024 End: 01-29-2025 1 each by In Vit ro route Daily Use to check FSBS four times daily [id number] Start: 01-01-2025 End: 01-31-2025 Clinical Notes 04-21-2024 to 02-05-2025 Roxana Garcia, CARA - 02/05/2025 8:10 AM Pennie Huizar NP - 01/29/2025 10:00 AM Pennie Huizar, LAURA - 01/22/2025 1:30 PM Payton Kelly LPN - 01/09/2025 1:40 PM EDT Note Date & Type Note Facility 02-05-2025 History of Presen t illness Narrative Reason [...] MEAL FOR A TOTAL OF 4TIMES DAILY. Multiple Vitamins-Minerals (MULTIVITAMIN ADULT, MINERALS, PO) Multivitamin Rangdqsg-Mxe-Op-FA ( 1 + IRON PO) valACYclovir (VALTREX) [...] 08/21/2024 History of pre-eclampsia 08/21/2024 Second trimester ([facility]) 08/21/2024 Resolved Ambulatory Problems Diagnosis Date [...] nursing note reviewed. Exam conducted with a legal billing clerk present. Vitals: Estimated body mass index is 34.53 kg/m as calculated from the following: Height as of 06/24/23: 5' 5 . Weight as of this encounter: 207 lb 8 oz. BP: 122/78 Patient's last menstrual period was 05/14/2024. ASSESSMENT & PLAN ICD-10-CM 1. Third trimester ([facility]) Z34.93 2. 38 weeks gestation of ([facility]) Z3A.38 POCT urinalysis dipstick manually resulted 3. Diet controlled gestational diabetes mellitus (GDM), antepartum ([facility]) O24.410 4. H/O pre-eclampsia in prior , currently ([facility]) O09.299 5. HSV infection B00.9 Patient presents [...] Eric Holly DO documented in this encounter [facility] 01-29-2025 History of Presen t illness Narrative [...] Multiple Vitamins-Minerals (MULTIVITAMIN ADULT, MINERALS, PO) Multivitamin Epopwhjy-Cus-Ly-FA ( 1 + IRON PO) valACYclovir (VALTREX) [...] 08/21/2024 History of pre-eclampsia 08/21/2024 Second trimester ([facility]) 08/21/2024 Resolved Ambulatory Problems Diagnosis [...] nursing note reviewed. Exam conducted with a legal billing clerk present. Vitals: Estimated body mass index is 34.63 kg/m as calculated from the following: Height as of 23: 5' 5 . Weight as of this encounter: 208 lb 1.9 oz. BP: 110/70 Patient's last menstrual period was 05/14/2024. ASSESSMENT & PLAN ICD-10-CM 1. 37 weeks gestation of ([facility]) Z3A.37 POCT urinalysis dipstick manually resulted 2. Third trimester ([facility]) Z34.93 POCT urinalysis dipstick manually resulted 3. H/O pre-eclampsia in prior , currently ([facility]) O09.299 4. Diet controlled gestational diabetes mellitus (GDM), antepartum ([facility]) O24.410 Return OB: Patient presents today [...] Eric Holly DO documented in this encounter [facility] 01-22-2025 History of Presen t illness Narrative [...] Multiple Vitamins-Minerals (MULTIVITAMIN ADULT, MINERALS, PO) Multivitamin Mfhdahxj-Pjn-Rs-FA ( 1 + IRON PO) ALLERGIES Allergies [...] 08/21/2024 History of pre-eclampsia 08/21/2024 Second trimester ([facility]) 08/21/2024 Resolved Ambulatory Problems Diagnosis Date [...] nursing note reviewed. Exam conducted with a legal billing clerk present. Vitals: Estimated body mass index is 34.58 kg/m as calculated from the following: Height as of 23: 5' 5 . Weight as of this encounter: 207 lb 12.8 oz. BP: 116/70 Patient's last menstrual period was 05/14/2024. ASSESSMENT & PLAN ICD-10-CM 1. Third trimester ([facility]) Z34.93 POCT urinalysis dipstick manually resulted CULTURE, GROUP B STREP WITH SUSCEPTIBLITY CULTURE, GROUP B STREP WITH SUSCEPTIBLITY 2. 36 weeks gestation of ([facility]) Z3A.36 POCT urinalysis dipstick manually resulted [...] Eric Holly DO documented in this encounter [facility] 01-09-2025 History of Presen t illness Narrative [...] Multiple Vitamins-Minerals (MULTIVITAMIN ADULT, MINERALS, PO) Multivitamin Vajacryb-Ypw-Ub-FA ( 1 + IRON PO) ALLERGIES Allergies [...] 08/21/2024 History of pre-eclampsia 08/21/2024 Second trimester ([facility]) 08/21/2024 Resolved Ambulatory Problems Diagnosis Date [...] nursing note reviewed. Exam conducted with a legal billing clerk present. Vitals: Estimated body mass index is 34.11 kg/m as calculated from the following: Height as of 06/24/23: 5' 5 . Weight as of this encounter: 205 lb. BP: 118/78 Patient's last menstrual period was 05/14/2024. ASSESSMENT & PLAN ICD-10-CM 1. Third trimester ([facility]) Z34.93 POCT urinalysis dipstick manually resulted 2. 34 weeks gestation of ([facility]) Z3A.34 3. H/O pre-eclampsia in prior , currently ([facility]) O09.299 4. Diet controlled gestational diabetes mellitus (GDM), antepartum ([facility]) O24.410 Return OB: Patient presents today [...] Eric Holly DO documented in this encounter [facility] 12-25-2024 History of Presen t illness Narrative [...] Multiple Vitamins-Minerals (MULTIVITAMIN ADULT, MINERALS, PO) Multivitamin Nxeuqjwb-Ams-Wv-FA ( 1 + IRON PO) ALLERGIES Allergies [...] nursing note reviewed. Exam conducted with a legal billing clerk present. Vitals: Estimated body mass index is [...] Eric Holly DO documented in this encounter [facility] 12-13-2024 History of Presen t illness [...] Multiple Vitamins-Minerals (MULTIVITAMIN ADULT, MINERALS, PO) Multivitamin Ivdbdzen-Pdy-Mf-FA ( 1 + IRON PO) ALLERGIES Allergies [...] nursing note reviewed. Exam conducted with a legal billing clerk present. Vitals: Estimated body mass index is [...] Eric Holly DO documented in this encounter [facility] 11-28-2024 History of Presen t illness [...] (ProtoNix) 20 MG EC tablet Pantoprazole Sodium Rormbrsm-Puw-Vl-FA ( 1 + IRON PO) ALLERGIES Allergies [...] nursing note reviewed. Exam conducted with a legal billing clerk present. Vitals: Estimated body mass index is [...] Eric Holly DO documented in this encounter [facility] 11-07-2024 History of Presen t illness Narrative Reason for Appointment: Patient ID: Abram Villarreal is a 33 y.o. female who presents for Routine Visit Patient presents today for Return OB appointment. MEDICATIONS Current Outpatient Medications Medication Instructions albuterol HFA 90 mcg/act inhaler Every 4 hours Multiple Vitamins-Minerals (MULTIVITAMIN ADULT, MINERALS, PO) Multivitamin pantoprazole (ProtoNix) 20 MG EC tablet Pantoprazole Sodium Pwwspjku-Zkg-Km-FA ( 1 + IRON PO) valACYclovir (VALTREX) [...] nursing note reviewed. Exam conducted with a legal billing clerk present. Vitals: Estimated body mass index is [...] Eric Holly DO documented in this encounter [facility] 09-18-2024 History of Presen t illness [...] nursing note reviewed. Exam conducted with a legal billing clerk present. Vitals: Estimated body mass index is [...] of: PALLAVI Mccord documented in this encounter [facility] 08-21-2024 History of Presen t illness [...] or undercooked meat, and stay away from [facility]. Patient has been consulted regarding any [...] Eric Holly DO documented in this encounter [facility] 07-21-2024 History of Presen t illness [...] or undercooked meat, and stay away from [facility]. Patient has also been advised to [...] Keiko Bruce MA documented in this encounter [facility] 04-21-2024 Evaluation note Diagnosis Onset Date Resolution Acute right otitis media acute April 21, 2024 1:26pm Viral URI acute June 08, 2024 9:51am [facility] Work Phone: RuiYialuation note* Diagnosis Onset Date Resolution Status Strep throat acute [facility] Work Phone: SoftArtation note* Diagnosis Onset Date Resolution Status Acute right otitis media acu te [facility] Work Phone: RuiYialuation note* Diagnosis Missed menses , unspecified gestational age Encounter for supervision of normal first in first trimester [facility] Diagnosis 14 weeks gestation of Second trimester state, incidental Tinea pedis, unspecified laterality History of pre-eclampsia History of anemia Personal history of diseases of blood and blood-forming organs documented in this encounter [facility]* Diagnosis Onset Date Resolution Status Admit Date Viral URI with cough acute Febr uary 2024 3:37pm [facility] Work Phone: Soft[employer]ation note* Diagnosis Well woman exam with routine gynecological exam Routine gynecological examination Second trimester state, incidental 18 weeks gestation of Vaginal discharge Leukorrhea, not specified as infective STD exposure Screening, , for anatomic survey Encounter for anatomic survey Sinusitis, unspecified chronicity, unspecified location documented in this encounter [facility] Diagnosis Second trimester state, incidental 25 weeks gestation of Diabetes mellitus screening Screening for diabetes mellitus documented in this encounter [facility]* Diagnosis Third trimester state, incidental 28 weeks gestation of documented in this encounter [facility]* Diagnosis 30 weeks gestation of Third trimester state, incidental Gestational diabetes mellitus (GDM), antepartum, gestational diabetes method of control unspecified documented in this encounter [facility] Diagnosis 32 weeks gestation of [...] note* Diagnosis Third trimester ([facility]) state, incidental 38 weeks gestation of ([facility]) Diet controlled gestational diabetes mellitus (GDM), antepartum ([facility]) H/O pre-eclampsia in prior , currently ([facility]) HSV infection Herpes simplex without mention of complication documented in this encounter [facility] Summary [...] content) DATE CREATED AUTHOR 01/19/2018 [facility] DATE CREATED AUTHOR AUTHOR'S ORGANIZ ATION 01/19/2018 [facility] DATE CREATED AUTHOR AUTHOR'S ORGANIZ ATION 08/26/2022 [facility] DATE CREATED AUTHOR AUTHOR'S ORGANIZ ATION 12/02/2022 [facility] DATE CREATED AUTHOR AUTHOR'S ORGANIZ ATION 02/08/2025 [facility] EPIC Care Teams (unrecognized sec tion and content) Team Status: Active Member Role Status Dates Violet Cerda EQUIPMENT LEAD-C Primary Care Provider Active Team Status: Inactive [...] June 08, 2024 End: June 08, 2024 Table Worker Packager Relationship Specialty Start Date End Date Cuco Munoz MD [address] [place] [id number] PCP - General Family Medicine 06/24/23 Table Worker Packager Relationship Specialty Start Date End Date Cuco Munoz MD [facility] [place] [address] PCP - General Family Medicine 06/24/23 Table Worker Packager Relationship Specialty Start Date End Date Cuco Munoz MD [address] [facility], [place] [id number] PCP - General Family Medicine 06/24/23 Table Worker Packager Relationship Specialty Start Date End Date Cuco Munoz MD [address] [facility], [place] [id number] PCP - General Family Medicine 06/24/23 Team Status: Inactive Member Role Status Dates Violet Cerda EQUIPMENT LEAD-C Primary Care Provider Active Start: September 08, 2024 End: September 08, 2024 VI Nevarez Active Start: August End: September 08, 2024 Mayte Joiner APRN Attending Provider Active Start: September 08, 2024 End: September 08, 2024 Table Worker Packager Relationship Specialty Start Date End Date Cuco Munoz MD [address] [facility] [place] [address] PCP - General Family Medicine 06/24/23 Table Worker Packager Relationship Specialty Start Date End Date Cuco Munoz MD [address] [facility] [place] [address] PCP - General Family Medicine 06/24/23 Table Worker Packager Relationship Specialty Start Date End Date Cuco Munoz MD [address] [facility], [place] [id number] PCP - General Family Medicine 06/24/23 Table Worker Packager Relationship Specialty Start Date End Date Cuco Munoz MD [address] [facility], [place] [id number] PCP - General Family Medicine 06/24/23 Table Worker Packager Relationship Specialty Start Date End Date Cuco Munoz MD [address] [place] [address] PCP - General Family Medicine 06/24/23 Table Worker Packager Relationship Specialty Start Date End Date Cuco Munoz MD [address] [place] [address] PCP - General Family Medicine 06/24/23 Table Worker Packager Relationship Specialty Start Date End Date Cuco Munoz MD [address] [place] [address] PCP - General Family Medicine 06/24/23 Table Worker Packager Relationship Specialty Start Date End Date Cuco Munoz MD [address] [place] [address] PCP - General Family Medicine 06/24/23 Table Worker Packager Relationship Specialty Start Date End Date Cuco Munoz MD [address] [place] [address] PCP - General Family Medicine 06/24/23 Table Worker Packager Relationship Specialty Start Date End Date Cuco Munoz MD [address] [place] [address] PCP - General Family Medicine 06/24/23 Table Worker Packager Relationship Specialty Start Date End Date Cuco Munoz MD [address] [place] [address] PCP - General Family Medicine 06/24/23 Table Worker Packager Relationship Specialty Start Date End Date Cuco Munoz MD [address] [place] [address] PCP - General [facility] 06/24/23 Table Worker Packager Relationship Specialty Start Date End Date Cuco Munoz MD [address] [place] [address] PCP - [facility] 06/24/23 Table Worker Packager Relationship Specialty Start Date End Date Cuco Munoz MD [address] [place] [address] PCP - [facility] 06/24/23 Table Worker Packager Relationship Specialty Start Date End Date Cuco Munoz MD [address] [place] [address] PCP - [facility] 06/24/23 Table Worker Packager Relationship Specialty Start Date End Date Cuco Munoz MD [address] [place] [address] PCP - [facility] 06/24/23 Table Worker Packager Relationship Specialty Start Date End Date Cuco Munoz MD [address] [place] [address] PCP - General [facility] 06/24/23 Goals (unrecognized section and content) Goals [...] BE BASED ON THE PRIMARY CLINICAL RECORDS. [facility]. provides no warranty or guarantee of the accuracy or completeness of information in this document.
[2025-02-15 20:30] LABS: Glucose Urine UA NEGATIVE (NEGATIVE)
[2025-02-15 20:51] LABS: Cast Seen? NONE SEEN #/LPF (NONE SEEN); Crystals Seen? None Seen #/HPF (None Seen); Urine Culture Indicated YES-FRMC
[2025-02-15 20:59] LABS: Hematocrit 38.5 % (36.0-48.0); Hemoglobin 12.5 g/dL (12.0-16.0); Immature Granulocytes Abs Auto 0.08 10^3/uL (0.00-0.03); Immature Granulocytes Pct Auto 0.8 % (0.0-0.5); Lymphocytes Absolute Auto 2.5 10^3/uL (1.2-3.8); Mean Corpuscular HGB Conc 32.5 g/dL (29.9-35.2); Mean Corpuscular Hemoglobin 24.1 pg (26.7-34.0); Mean Corpuscular Volume 74.3 fL (81.0-99.0); Platelet Count 647 10^3/uL (150-450); Red Blood Count 5.18 10^6/uL (4.20-5.40); White Blood Count 9.9 10^3/uL (4.0-11.0)
[2025-02-15 21:13] LABS: Alanine Aminotransferase 35 U/L (14-59); Albumin Globulin Ratio 0.6; Albumin Level 3.0 g/dL (3.4-5.0); Alkaline Phosphatase 96 U/L (46-116); Anion Gap 12.2; Aspartate Amino Transferase 27 U/L (15-37); Blood Urea Nitrogen 18.0 mg/dL (7.0-18.0); Calcium 9.8 mg/dL (8.5-10.1); Carbon Dioxide 30.5 mmol/L (21.0-32.0); Chloride 101 mmol/L (98-107); Estimated GFR (African America >60 (>=60 mL/min/1.73m^2); Estimated GFR (Non-African Ame >60 (>=60 mL/min/1.73m^2); Globulin 5.0 g/dL; Glucose 90 mg/dL (74-106); Potassium 3.7 mmol/L (3.5-5.1); Sodium 140 mmol/L (136-145); Total Protein 8.0 g/dL (6.4-8.2)
--- NOTE | 2025-02-15 21:17 | ED_ITS ---
Documented by User: [email or web address] VU II 02/15/25 21:56 HPI HPI - General Adult General Chief complaint: Headache Stated complaint: NON STOP HEADACHE THAT WON'T GO AWAY Time Seen by Provider: 02/15/25 19:42 Source: patient Mode of arrival: walk-in Limitations: no limitations History of Present Illness Onset (ago): day(s) (started yesterday) Location: Reports head Severity: mild Treatments prior to arrival: Reports other (tylenol) Related Data Home Medications ?Medication ?Instructions ?Recorded ?Confirmed No Known Home Medications 02/15/2501/24 Allergies Allergy/AdvReac Type Severity Reaction Status Date / Time amoxicillin Allergy Severe Hives Verified 01/31/25 17:08 azithromycin (From Zithromax) Allergy Severe Hives Verified 01/31/25 17:08 cefaclor Allergy Severe Hives Verified 01/31/25 17:08 clarithromycin (From Biaxin) Allergy Severe Hives Verified 01/31/25 17:08 doxycycline Allergy Severe Hives Verified 01/31/25 17:08 Sulfa (Sulfonamide Allergy Severe Hives Verified 01/31/25 17:08 Antibiotics) sulfamethoxazole (From Allergy Severe Hives Verified 01/31/25 17:08 Bactrim) trimethoprim (From Bactrim) Allergy Severe Hives Verified 01/31/25 17:08 Opioid HPI Opioid Management Most Recent Opioid Data: Last Pain Scale 4 Today, 19:37 Ur Phencyclidine Scrn, (NEGATIVE) Negative , 19:00 Review of Systems ROS Status of ROS 10 or more systems reviewed and unremark able except as noted in history and below Constitutional Denies: fever or chills Eyes Denies: change in vision Ears, nose, mouth, and throat Denies: throat pain Cardiovascular Denies: chest pain Respiratory Denies: shortness of breath Gastrointestinal Denies: nausea or vomiting Genitourinary Reports: vaginal bleeding Musculoskeletal Reports: back pain Integumentary/Breast Denies: rash Neurological Reports: headache; Denies: weakness in extremities Psychiatric Denies: anxiety Hematologic/Lymphatic Denies: easy bruising Allergic/Immunologic Denies: hives [facility] Medical History (Updated 02/15/25 @ 22:09 by Meghann Alexander MD) Henoch-Schonlein purpura ?D69.0 - Allergic purpura (ICD-10) Social History Highest level of school completed/degree received: some college, no degree Little interest or pleasure in doing things: not at all Feeling down, depressed, or hopeless: not at all Exam Constitutional Vital Signs, click to edit/add: Last Vital Signs Temp 98.3 F 02/15/25 19:37 Pulse 74 02/15/25 19:37 Resp 18 02/15/25 19:37 BP 128/90 02/15/25 21:25 Pulse Ox 99 02/15/25 19:37 O2 Del Method Room Air 02/15/25 19:37 Documenting provider has reviewed patient's vital signs: yes Common normals: no apparent distress, average body habitus and oriented x3 Exam limitations: altered mental status General appearance: cooperative and comfortable HENMT Common normals: normocephalic Face and sinus: normal facial exam Nose: external nose normal External ear: external ears normal Eye Common normals: PERRL and EOMs intact bilaterally General eye: normal appearance of both eyes, normal light reflex and decreased light reflex Alignment: alignment normal Eyelid: eyelids normal Conjunctiva: conjunctiva(e) normal Pupil: PERRL and accommodation reflex normal Neck & C-Spine Common normals: full ROM Chest Common normals: palpation of chest normal Respiratory Common normals: normal respiratory effort and clear to auscultation bilaterally Effort & inspection: able to speak in complete sentences Auscultation: clear to auscultation bilaterally; no crackles, no rales, no rhonchi and no wheezes Cardio Common normals: regular rate, regular rhythm, S1 normal heart sound and S2 normal heart sound Rate: regular rate GI Common normals: Normal to inspection, nondistended, normoactive bowel sounds present Auscultation: normoactive bowel sounds Common normals: no CVA tenderness Back & Pelvis Common normals: no CVA tenderness Extremity Common normals: normal to inspection, full ROM and no pedal edema Neuro Common normals: oriented x3, moves all extremities and no focal motor deficits Psych Common normals: mental status grossly normal and thought process normal Course Vital Signs Vital signs: Vital Signs Temperature 98.3 F 02/15/25 19:37 Pulse Rate 74 02/15/25 19:37 Respiratory Rate 18 02/15/25 19:37 Blood Pressure 132/88 02/15/25 19:37 Pulse Oximetry 99 02/15/25 19:37 Oxygen Delivery Method Room Air 02/15/25 19:37 Temperature 98.3 F 02/15/25 19:37 Pulse Rate 74 02/15/25 19:37 Respiratory Rate 18 02/15/25 19:37 Blood Pressure 128/90 02/15/25 21:25 Pulse Oximetry 99 02/15/25 19:37 Oxygen Delivery Method Room Air 02/15/25 19:37 Medical Decision Making MDM Narrative Medical decision making narrative: Presents with headache left-sided only started yesterday patient delivered 1 week ago with epidural denies any fever, chills, nausea, vomiting. She has a history of preeclampsia was concerned that her blood pressure may have elevated. Evaluated patient emergency room. Will add Toradol disposition to home. Dr. Alexander discussed with patient. Differential Diagnosis Differential Diagnosis: RODAS/ Preeclampsia. Lab Data Labs: Lab Results 02/15/25 02/15/25 Range/Units 20:15 20:52 WBC 9.9 (4.0-11.0) 10^3/uL RBC 5.18 (4.20-5.40) 10^6/uL Hgb 12.5 (12.0-16.0) g/dL Hct 38.5 (36.0-48.0) % MCV 74.3 L (81.0-99.0) fL MCH 24.1 L (26.7-34.0) pg MCHC 32.5 (29.9-35.2) g/dL RDW 18.6 H (11.0-15.0) % Plt Count 647 H (150-450) 10^3/uL MPV 9.7 (9.5-13.5) fL Neut % (Auto) 63.8 (43.0-75.0) % Lymph % (Auto) 25.5 (20.5-60.0) % Lamb % (Auto) 6.3 (1.7-12.0) % Eos % (Auto) 2.5 (0.9-7.0) % Baso % (Auto) 1.1 (0.2-2.0) % Neut # (Auto) 6.3 (1.4-6.5) 10^3/uL Lymph # (Auto) 2.5 (1.2-3.8) 10^3/uL Lamb # (Auto) 0.6 (0.3-0.8) 10^3/uL Eos # (Auto) 0.3 (0.0-0.7) 10^3/uL Baso # (Auto) 0.1 (0.0-0.1) 10^3/uL Abs Immat Gran (auto) 0.08 H (0.00-0.03) 10^3/uL Imm/Tot Granulo (auto) 0.8 H (0.0-0.5) % Sodium 140 (136-145) mmol/L Potassium 3.7 (3.5-5.1) mmol/L Chloride 101 (98-107) mmol/L Carbon Dioxide 30.5 (21.0-32.0) mmol/L Anion Gap 12.2 BUN 18.0 (7.0-18.0) mg/dL Creatinine 0.76 (0.55-1.02) mg/dL Est GFR ( Amer) >60 (>=60 mL/min/1.73m^2) Est GFR (Non-Af Amer) >60 (>=60 mL/min/1.73m^2) BUN/Creatinine Ratio 23.7 Glucose 90 (74-106) mg/dL Calcium 9.8 (8.5-10.1) mg/dL Total Bilirubin 0.2 (0.2-1.0) mg/dL AST 27 (15-37) U/L ALT 35 (14-59) U/L Alkaline Phosphatase 96 (46-116) U/L Total Protein 8.0 (6.4-8.2) g/dL Albumin 3.0 L (3.4-5.0) g/dL Globulin 5.0 g/dL Albumin/Globulin Ratio 0.6 Urine Color Lt. yellow (YELLOW) Urine Clarity Clear (CLEAR) Urine pH 6.5 (5.0-9.0) Ur Specific [place] <=1.005 A (1.005-1.025) Urine Protein Negative (NEG/TRACE) mg/dL Urine Glucose (UA) Negative (NEGATIVE) mg/dL Urine Ketones Negative (NEGATIVE) mg/dL Urine Occult Blood Large A (NEGATIVE) Urine Nitrite Negative (NEGATIVE) Urine Bilirubin Negative (NEGATIVE) Urine Urobilinogen 0.2 (0.2-1.0) EU/dL Ur Leukocyte Esterase Moderate A (NEGATIVE) Urine RBC None seen (0-2) #/HPF Urine WBC 2-5 A (NONE SEEN) #/HPF Ur Squamous Epith Cells Few A (NONE/RARE) #/LPF Urine Crystals None seen (None Seen) #/HPF Urine Bacteria Trace A (NONE SEEN) #/HPF Urine Casts None seen (NONE SEEN) #/LPF Urine Mucus None seen (NONE SEEN) Ur Culture Indicated[place] [place] Discharge Chief Complaint: Headache Clinical Impression: Headache Patient Disposition: Home, Self-Care Time of Disposition Decision: 22:09 Condition: Good Prescriptions / Home Meds: No Action No Known Home Medications Print Language: Turkmen Instructions: Acute Headache (ED), General Headache (ED) Referrals: Physician,Non-Staff, MD [Primary Care Provider] - 1 week Documented by User: Meghann Alexander MD 02/15/25 22:14 HPI HPI - General Adult General Chief complaint: Headache Stated complaint: NON STOP HEADACHE THAT WON'T GO AWAY Time Seen by Provider: 02/15/25 19:42 Related Data Home Medications ?Medication ?Instructions ?Recorded ?Confirmed No Known Home Medications 02/15/2501/24 Allergies Allergy/AdvReac Type Severity Reaction Status Date / Time amoxicillin Allergy Severe Hives Verified 01/31/25 17:08 azithromycin (From Zithromax) Allergy Severe Hives Verified 01/31/25 17:08 cefaclor Allergy Severe Hives Verified 01/31/25 17:08 clarithromycin (From Biaxin) Allergy Severe Hives Verified 01/31/25 17:08 doxycycline Allergy Severe Hives Verified 01/31/25 17:08 Sulfa (Sulfonamide Allergy Severe Hives Verified 01/31/25 17:08 Antibiotics) sulfamethoxazole (From Allergy Severe Hives Verified 01/31/25 17:08 Bactrim) trimethoprim (From Bactrim) Allergy Severe Hives Verified 01/31/25 17:08 Opioid HPI Opioid Management Most Recent Opioid Data: Last Pain Scale 4 Today, 19:37 Ur Phencyclidine Scrn, (NEGATIVE) Negative , 19:00 [facility] Medical History (Updated 02/15/25 @ 22:09 by Meghann Alexander MD) Henoch-Schonlein purpura ?D69.0 - Allergic purpura (ICD-10) Social History Highest level of school completed/degree received: some college, no degree Little interest or pleasure in doing things: not at all Feeling down, depressed, or hopeless: not at all Exam Constitutional Vital Signs, click to edit/add: Last Vital Signs Temp 98.3 F 02/15/25 19:37 Pulse 74 02/15/25 19:37 Resp 18 02/15/25 19:37 BP 128/90 02/15/25 21:25 Pulse Ox 99 02/15/25 19:37 O2 Del Method Room Air 02/15/25 19:37 Course Vital Signs Vital signs: Vital Signs Temperature 98.3 F 02/15/25 19:37 Pulse Rate 74 02/15/25 19:37 Respiratory Rate 18 02/15/25 19:37 Blood Pressure 132/88 02/15/25 19:37 Pulse Oximetry 99 02/15/25 19:37 Oxygen Delivery Method Room Air 02/15/25 19:37 Temperature 98.3 F 02/15/25 19:37 Pulse Rate 74 02/15/25 19:37 Respiratory Rate 18 02/15/25 19:37 Blood Pressure 128/90 02/15/25 21:25 Pulse Oximetry 99 02/15/25 19:37 Oxygen Delivery Method Room Air 02/15/25 19:37 Medical Decision Making MDM Narrative Medical decision making narrative: Presents with headache left-sided only started yesterday patient delivered 1 week ago with epidural denies any fever, chills, nausea, vomiting. She has a history of preeclampsia was concerned that her blood pressure may have elevated. Evaluated patient emergency room. Will add Toradol disposition to home. Dr. Alexander discussed with patient. This 34-year-old female was seen and evaluated in conjunction with the physician home care assistant. She presents for evaluation of a left-sided headache. She is not having any blurred vision slurred speech or confusion. She is not have any visual disturbances. She does not have any lower extremity swelling. She is 6 days . Her blood pressure was mildly elevated upon arrival and continually evaluated while in the emergency department. It came down into the 120s over 80s. A workup for preeclampsia was ordered. She has a normal white count and hemoglobin. Electrolytes and liver function tests are normal. Urine is negative for infection and does not show that she is spilling any protein. She was medicated with IM Toradol after an IV had been ordered but was not initially able to be performed and the patient was reluctant to have it repeated. On reevaluation she states the headache is improved. She was offered of Vicodin or Percocet in addition to the Toradol for her headache but she declines and feels comfortable being discharged home at this time. Clinically there was no sign of preeclampsia and her neuroexam is normal. Lab Data Labs: Lab Results 02/15/25 02/15/25 Range/Units 20:15 20:52 WBC 9.9 (4.0-11.0) 10^3/uL RBC 5.18 (4.20-5.40) 10^6/uL Hgb 12.5 (12.0-16.0) g/dL Hct 38.5 (36.0-48.0) % MCV 74.3 L (81.0-99.0) fL MCH 24.1 L (26.7-34.0) pg MCHC 32.5 (29.9-35.2) g/dL RDW 18.6 H (11.0-15.0) % Plt Count 647 H (150-450) 10^3/uL MPV 9.7 (9.5-13.5) fL Neut % (Auto) 63.8 (43.0-75.0) % Lymph % (Auto) 25.5 (20.5-60.0) % Lamb % (Auto) 6.3 (1.7-12.0) % Eos % (Auto) 2.5 (0.9-7.0) % Baso % (Auto) 1.1 (0.2-2.0) % Neut # (Auto) 6.3 (1.4-6.5) 10^3/uL Lymph # (Auto) 2.5 (1.2-3.8) 10^3/uL Lamb # (Auto) 0.6 (0.3-0.8) 10^3/uL Eos # (Auto) 0.3 (0.0-0.7) 10^3/uL Baso # (Auto) 0.1 (0.0-0.1) 10^3/uL Abs Immat Gran (auto) 0.08 H (0.00-0.03) 10^3/uL Imm/Tot Granulo (auto) 0.8 H (0.0-0.5) % Sodium 140 (136-145) mmol/L Potassium 3.7 (3.5-5.1) mmol/L Chloride 101 (98-107) mmol/L Carbon Dioxide 30.5 (21.0-32.0) mmol/L Anion Gap 12.2 BUN 18.0 (7.0-18.0) mg/dL Creatinine 0.76 (0.55-1.02) mg/dL Est GFR ( Amer) >60 (>=60 mL/min/1.73m^2) Est GFR (Non-Af Amer) >60 (>=60 mL/min/1.73m^2) BUN/Creatinine Ratio 23.7 Glucose 90 (74-106) mg/dL Calcium 9.8 (8.5-10.1) mg/dL Total Bilirubin 0.2 (0.2-1.0) mg/dL AST 27 (15-37) U/L ALT 35 (14-59) U/L Alkaline Phosphatase 96 (46-116) U/L Total Protein 8.0 (6.4-8.2) g/dL Albumin 3.0 L (3.4-5.0) g/dL Globulin 5.0 g/dL Albumin/Globulin Ratio 0.6 Urine Color Lt. yellow (YELLOW) Urine Clarity Clear (CLEAR) Urine pH 6.5 (5.0-9.0) Ur Specific [place] <=1.005 A (1.005-1.025) Urine Protein Negative (NEG/TRACE) mg/dL Urine Glucose (UA) Negative (NEGATIVE) mg/dL Urine Ketones Negative (NEGATIVE) mg/dL Urine Occult Blood Large A (NEGATIVE) Urine Nitrite Negative (NEGATIVE) Urine Bilirubin Negative (NEGATIVE) Urine Urobilinogen 0.2 (0.2-1.0) EU/dL Ur Leukocyte Esterase Moderate A (NEGATIVE) Urine RBC None seen (0-2) #/HPF Urine WBC 2-5 A (NONE SEEN) #/HPF Ur Squamous Epith Cells Few A (NONE/RARE) #/LPF Urine Crystals None seen (None Seen) #/HPF Urine Bacteria Trace A (NONE SEEN) #/HPF Urine Casts None seen (NONE SEEN) #/LPF Urine Mucus None seen (NONE SEEN) Ur Culture Indicated[place] [place] Discharge Chief Complaint: Headache Clinical Impression: Headache Patient Disposition: Home, Self-Care Time of Disposition Decision: 22:09 Condition: Good Prescriptions / Home Meds: No Action No Known Home Medications Print Language: Turkmen Instructions: Acute Headache (ED), General Headache (ED) Referrals: Physician,Non-Staff, MD [Primary Care Provider] - 1 week
[2025-02-15 21:25] VITALS: BP 128/90
[2025-02-15] MEDS: KETOROLAC TROMETHAMINE 60 MG/2 ML VIAL IM (21:37)
== END 2025-02-15 22:17 | disposition home or self-care (01) ==
PROVIDERS: Physician Assistant; Emergency Provider Emergency Medicine
DX: O90.89 Other complications of the puerperium, not elsewhere classified (principal); R51.9 Headache, unspecified
CPT/HCPCS: 36415; 80053; 81001; 85025; 87086; 96372; 99285; J1885